=== PATIENT | male | born 1950 | race African-American/Black ===

== ENCOUNTER 2016-07-09 04:35 | Emergency (ER) | payer OTHER ==
[2016-07-09 04:59] VITALS: TEMP 98.7; BMI 27.7
--- NOTE | 2016-07-09 04:59 | PDOC ---
History of Present Illness - General History Source: Patient Exam Limitations: No Limitations - History of Present Illness Initial Comments: 07/09/16 05:17 The patient is a 65 year old male with a significant past medical history of diabetes, HTN, Cirrhosis, lymphocytic leukemia and HIV who presents to the ED with complaints of flu like symptoms for several days. The patient reports a non productive cough and shortness of breath. He reports a fever of 102 F yesterday and 100 F tonight. The patient reports his symptoms woke him from his sleep tonight. The patient also reports frequency. Denies chest pain or palpitations. Denies abdominal pain, nausea, vomiting, or diarrhea. Denies dysuria. Denies any other symptoms. Social hx: The patient is a former smoker (quit over 25 years ago). <Agata Ng - Last Filed: 07/09/16 05:17> <Maria Dolores Sandoval - Last Filed: 07/09/16 06:49> <Rodolfo Tomlinson - Last Filed: 07/09/16 10:27> <Juli Liu - Last Filed: 07/09/16 10:42> - General Stated Complaint: COLD SYMPTOMS Time Seen by Provider: 07/09/16 04:44 Past History <Agata Ng - Last Filed: 07/09/16 05:17> - Past Medical History Anemia: Yes Asthma: No Cancer: Yes (lymphacystic leukemia) Cardiac Disorders: Yes CVA: No COPD: No CHF: No Dementia: No Diabetes: Yes Disorders: No HTN: Yes Hypercholesterolemia: No HIV: Yes Kidney Stones: Yes Liver Disease: Yes (cirrhosis) Suicide Attempt (Hx): No Seizures: No Thyroid Disease: No - Immunization History Td Vaccination: Yes Immunization Up to Date: Yes - Psycho/Social/Smoking Cessation Hx Anxiety: No Suicidal Ideation: No Smoking Status: Yes Smoking History: Former smoker Years of Tobacco Use: 25 Have you smoked in the past 12 months: No Number of Cigarettes Smoked Daily: 0 If you are a former smoker, when did you quit?: > 25 yrs ago Cigars Per Day: 0 Information on smoking cessation initiated: No 'Breaking Loose' booklet given: 12/26/12 Hx Alcohol Use: No Drug/Substance Use Hx: Yes (27 yrs ago) Substance Use Type: None Hx Substance Use Treatment: No <Maria Dolores Sandoval - Last Filed: 07/09/16 06:49> <Rodolfo Tomlinson - Last Filed: 07/09/16 10:27> <Juli Liu - Last Filed: 07/09/16 10:42> - Past Medical History Allergies/Adverse Reactions: Allergies Allergy/AdvReac Type Severity Reaction Status Date / Time No Known Allergies Allergy Verified 09/01/15 05:12 Home Medications: Ambulatory Orders Ritonavir [Norvir] 100 mg PO BID #0 tablet 01/07/13 Allopurinol [Zyloprim -] 100 mg PO BID 09/01/15 Carvedilol [Coreg -] 6.25 mg PO BID 09/01/15 Furosemide [Lasix -] 80 mg PO DAILY 09/01/15 Glipizide 5 mg PO BID 09/01/15 Lidocaine 5% Patch [Lidoderm Patch -] 1 patch TP DAILY 09/01/15 Multivitamins [Tab-A-Vit -] 1 tab PO DAILY 09/01/15 Nifedipine [Nifedical Xl] 60 mg PO DAILY 09/01/15 Raltegravir [Isentress -] 400 mg PO BID 09/01/15 Ranitidine HCl [Zantac] 150 mg PO DAILY 09/01/15 Rilpivirine HCl [Edurant] 25 mg PO DAILY 09/01/15 Tamsulosin HCl 0.4 mg PO DAILY 09/01/15 Albuterol Sulfate Inhaler - [Ventolin HFA Inhaler -] 1 - 2 inh PO Q4H #1 inhaler 07/09/16 Darunavir Ethanolate [Prezista -] 600 mg PO BID 07/09/16 Levofloxacin [Levaquin] 750 mg PO DAILY #10 tablet 07/09/16 Losartan Potassium [Cozaar -] 25 mg PO DAILY 07/09/16 Methylprednisolone [Medrol Dose Tyrone] 4 mg PO ASDIR #21 tablet 07/09/16 Review of Systems - Review of Systems Able to Perform ROS?: Yes Comments:: 07/09/16 05:17 CONSTITUTIONAL: + fever Absent: diaphoresis, generalized weakness, malaise, loss of appetite HEENT: Absent: rhinorrhea, nasal congestion, throat pain, throat swelling, difficulty swallowing, mouth swelling, ear pain, eye pain, visual Changes CARDIOVASCULAR: Absent: chest pain, syncope, palpitations, irregular heart rate, lightheadedness , peripheral edema RESPIRATORY: + cough, shortness of breath Absent: dyspnea with exertion, orthopnea, wheezing, stridor, hemoptysis GASTROINTESTINAL: Absent: abdominal pain, abdominal distension, nausea, vomiting, diarrhea, constipation, melena, hematochezia GENITOURINARY: + frequency Absent: dysuria, urgency, hesitancy, hematuria, flank pain, genital pain MUSCULOSKELETAL: Absent: myalgia, arthralgia, joint swelling SKIN: Absent: rash, itching, pallor HEMATOLOGIC/IMMUNOLOGIC: Absent: easy bleeding, easy bruising, lymphadenopathy, frequent infections ENDOCRINE: Absent: unexplained weight gain, unexplained weight loss, heat intolerance, cold intolerance NEUROLOGIC: Absent: headache, focal weakness or paresthesias, dizziness, unsteady gait, seizure, mental status changes, bladder or bowel incontinence PSYCHIATRIC: Absent: anxiety, depression, suicidal or homicidal ideation, hallucinations. All Other Systems: Reviewed and Negative <Agata Ng - Last Filed: 07/09/16 05:17> *Physical Exam - Vital Signs Last Vital Signs Temp Pulse Resp BP Pulse Ox 98.7 F 62 20 149/69 96 07/09/16 04:57 07/09/16 04:57 07/09/16 04:57 07/09/16 04:57 07/09/16 04:57 - Physical Exam Comments: 07/09/16 05:17 GENERAL: Well developed, well nourished. Awake and alert. No acute distress. HEENT: + Uvulitis.Normocephalic, atraumatic. PERRLA, EOMI. No conjunctival pallor. Sclera are non-icteric. Moist mucous membranes. NECK: Supple. Full ROM. No JVD. Carotid pulses 2+ and symmetric, without bruits. No thyromegaly. NCo lymphadenopathy. CARDIOVASCULAR: Regular rate and rhythm. No murmurs, rubs, or gallops. Distal pulses are 2+ and symmetric. PULMONARY: + Wheezing bilaterally. Fluid at the base if the longs. Coarse breath sounds on the right. ABDOMINAL: + abdomen full of ascites. Soft. Non-tender No rebound or guarding. No organomegaly. Normoactive bowel sounds. MUSCULOSKELETAL Normal range of motion at all joints. No bony deformities or tenderness. No CVA tenderness. EXTREMITIES: + pitting edema up to the knee bilaterally. No cyanosis. No clubbing. No calf tenderness. SKIN: Warm and dry. Normal capillary refill. No rashes. No jaundice. NEUROLOGICAL: Alert, awake, appropriate. Cranial nerves 2-12 intact. No deficits to light touch and temperature in face, upper extremities and lower extremities. No motor deficits in the in face, upper extremities and lower extremities. Normoreflexic in the upper and lower extremities. Normal speech. Toes are down- going bilaterally. Gait is normal without ataxia. PSYCHIATRIC: Cooperative. Good eye contact. Appropriate mood and affect. <Agata Ng - Last Filed: 07/09/16 05:17> - Vital Signs Last Vital Signs Temp Pulse Resp BP Pulse Ox 98.7 F 62 20 149/69 96 07/09/16 04:57 07/09/16 04:57 07/09/16 04:57 07/09/16 04:57 07/09/16 04:57 <Maria Dolores Sandoval - Last Filed: 07/09/16 06:49> - Vital Signs Last Vital Signs Temp Pulse Resp BP Pulse Ox 98.7 F 66 20 132/69 100 07/09/16 04:57 07/09/16 07:52 07/09/16 07:52 07/09/16 07:52 07/09/16 07:52 <Rodolfo Tomlinson - Last Filed: 07/09/16 10:27> - Vital Signs Last Vital Signs Temp Pulse Resp BP Pulse Ox 98.7 F 66 20 132/69 100 07/09/16 04:57 07/09/16 07:52 07/09/16 07:52 07/09/16 07:52 07/09/16 07:52 <Juli Liu - Last Filed: 07/09/16 10:42> ED Treatment Course - LABORATORY CBC & Chemistry Diagram: 07/09/16 05:19 07/09/16 05:44 <Maria Dolores Sandoval - Last Filed: 07/09/16 06:49> - LABORATORY CBC & Chemistry Diagram: 07/09/16 05:19 07/09/16 05:44 - ADDITIONAL ORDERS Additional order review: Laboratory Results 07/09/16 07/09/16 05:44 05:44 Sodium 143 Potassium 4.1 Chloride 106 Carbon Dioxide 25 Anion Gap 12 BUN 35 H D Creatinine 2.7 H D Creat Clearance w eGFR 23.99 Random Glucose 148 H Calcium 8.6 Total Bilirubin 0.4 AST 12 L D ALT 17 D Alkaline Phosphatase 62 Creatine Kinase 67 Troponin I < 0.02 D Total Protein 6.1 L Albumin 3.5 07/09/16 05:19 RBC 3.99 L MCV 85.3 MCHC 32.8 RDW 15.4 D MPV 8.1 Neutrophils % 9.0 L D Lymphocytes % 83.0 H D Monocytes % 3.0 L - RADIOLOGY Radiology Studies Ordered: Category Date Time Status CHEST CT WITHOUT CONTRAST [CT] Stat CT Scan 07/09/16 07:59 Completed - Medications Given in the ED: ED Medications Discontinued Medications Generic Name Dose Route Start Last Admin Trade Name Freq PRN Reason Stop Dose Admin Albuterol/Ipratropium 1 amp 07/09/16 06:33 07/09/16 06:52 Duoneb - NEB 07/09/16 06:34 1 amp ONCE ONE Administration Furosemide 40 mg 07/09/16 05:50 07/09/16 05:54 Lasix Injection - IVPUSH 07/09/16 05:51 40 mg ONCE ONE Administration Sodium Chloride 250 ml 07/09/16 06:34 07/09/16 06:52 Normal Saline - IV 07/09/16 06:35 250 ml ONCE ONE Administration <Rodolfo Tomlinson - Last Filed: 07/09/16 10:27> - LABORATORY CBC & Chemistry Diagram: 07/09/16 05:19 07/09/16 05:44 - ADDITIONAL ORDERS Additional order review: Laboratory Results 07/09/16 07/09/16 05:44 05:44 Sodium 143 Potassium 4.1 Chloride 106 Carbon Dioxide 25 Anion Gap 12 BUN 35 H D Creatinine 2.7 H D Creat Clearance w eGFR 23.99 Random Glucose 148 H Calcium 8.6 Total Bilirubin 0.4 AST 12 L D ALT 17 D Alkaline Phosphatase 62 Creatine Kinase 67 Troponin I < 0.02 D Total Protein 6.1 L Albumin 3.5 07/09/16 05:19 RBC 3.99 L MCV 85.3 MCHC 32.8 RDW 15.4 D MPV 8.1 Neutrophils % 9.0 L D Lymphocytes % 83.0 H D Monocytes % 3.0 L - Medications Given in the ED: ED Medications Discontinued Medications Generic Name Dose Route Start Last Admin Trade Name Freq PRN Reason Stop Dose Admin Albuterol/Ipratropium 1 amp 07/09/16 06:33 07/09/16 06:52 Duoneb - NEB 07/09/16 06:34 1 amp ONCE ONE Administration Furosemide 40 mg 07/09/16 05:50 07/09/16 05:54 Lasix Injection - IVPUSH 07/09/16 05:51 40 mg ONCE ONE Administration Sodium Chloride 250 ml 07/09/16 06:34 07/09/16 06:52 Normal Saline - IV 07/09/16 06:35 250 ml ONCE ONE Administration <Juli Liu - Last Filed: 07/09/16 10:42> Medical Decision Making - Medical Decision Making 07/09/16 06:49 Pt has HIV, Hep C, CHF, renal insufficiency, ascites in abdomen, pitting edema of ankles and feet. Comes with cough and cold. Lungs have crackles, wheeze and coarse breath sounds on exam. Pt's labs are normal, except for his BUN/Cr, which is getting worse. Pt is awaiting CXR. He will be signed out to the day ER doc. <Maria Dolores Sandoval - Last Filed: 07/09/16 06:49> - Medical Decision Making 07/09/16 10:40 Patient was signed over from Dr. Sandoval. 65 yo male with past medical hx of diabetes, hypertension, cirrhosis, leukemia, and HIV presents with cough producing green phlegm, cold symptoms, and fever. Patients BUN and creatinine levels high, CXR abnormal, will send to CT without contrast for further evaluation. EKG reviewed by Dr. Tomlinson. Normal rate, Flat flipped T's inferolateral <Juli Liu - Last Filed: 07/09/16 10:42> *DC/Admit/Observation/Transfer - Attestations Scribe Attestion: 07/09/16 05:18 Documentation prepared by Agata Ng, acting as medical laboratory specialist for Maria Dolores Sandoval MD <Agata Ng - Last Filed: 07/09/16 05:17> <Maria Dolores Sandoval - Last Filed: 07/09/16 06:49> <Rodolfo Tomlinson - Last Filed: 07/09/16 10:27> <Juli Liu - Last Filed: 07/09/16 10:42> Diagnosis at time of Disposition: Bronchitis - Discharge Dispostion Disposition: HOME Condition at time of disposition: Improved - Prescriptions Prescriptions: Levofloxacin [Levaquin] 750 mg PO DAILY #10 tablet Methylprednisolone [Medrol Dose Tyrone] 4 mg PO ASDIR #21 tablet Albuterol Sulfate Inhaler - [Ventolin HFA Inhaler -] 1 - 2 inh PO Q4H #1 inhaler - Patient Instructions Printed Discharge Instructions: DI for Acute Bronchitis Additional Instructions: Ciro... Levaquin is for ten days (Antibiotic for Bronchitis) Medrol is for 5 days. (AntiInflamatory for your Lungs) Albuterol inhaler is for trouble breathing.... one or two puffs is ok (4 times a day) You need to have your CT Scan repeated in six months so that you can know that what they saw is stable. Follow up with your doctor after [facility] Day. Return to us if worse or new symptoms occur. Aldo- Dr. Rodolfo Tomlinson
[2016-07-09] MEDS ORDERED: FUROSEMIDE 40 MG/4 ML INJECTABLE VIAL ONE ×2 (05:50→06:48)
[2016-07-09] MEDS ORDERED: FUROSEMIDE 40 MG/4 ML INJECTABLE VIAL IVPUSH ONE (05:50)
[2016-07-09 05:52] LABS: MCHC 32.8 g/dl (32.0-35.9); MEAN CELL VOLUME 85.3 fl (80-96); MEAN PLT VOLUME 8.1 fl (7.5-11.1); PLATELET COUNT 71 K/MM3 (134-434); RDW 15.4 % (11.9-15.9); WHITE BLOOD COUNT 7.3 K/mm3 (4.0-10.0)
[2016-07-09 06:18] LABS: ALBUMIN 3.5 g/dl (3.4-5.0); BILIRUBIN,TOTAL 0.4 mg/dL (0.2-1.0); CALCIUM 8.6 mg/dL (8.5-10.1); COCKROFT - GAULT 33.77; CREATININE 2.7 mg/dL (0.7-1.3); TOT PROT 6.1 g/dl (6.4-8.2)
[2016-07-09 06:21] LABS: TROPONIN I < 0.02 ng/ml (0.00-0.05)
[2016-07-09] MEDS ORDERED: ALBUTEROL SO4 2.5/IPRATROPIUM 0.5 INH SOL 3 ML VIAL.NEB. NEB ONE (06:33)
[2016-07-09] MEDS ORDERED: SODIUM CHLORIDE 0.9% 500 ML INFUS.BAG IV ONE (06:34)
[2016-07-09 07:11] LABS: PLATELET ESTIMATE MOD DECREASED (NORMAL)
[2016-07-09 07:12] LABS: ANISOCYTOSIS FEW; POIKILOCYTOSIS FEW
[2016-07-09] MEDS ORDERED: LEVOFLOXACIN 250 MG TABLET (FP) PO ONE (10:22)
[2016-07-09] MEDS ORDERED: predniSONE 20 MG TABLET (UD) PO ONE (10:22)
[2016-07-09] MEDS ORDERED: LEVOFLOXACIN 250 MG TABLET (FP) ONE (10:46)
[2016-07-09] MEDS ORDERED: LEVOFLOXACIN 500 MG TABLET (FP) ONE (10:46)
[2016-07-09] MEDS ORDERED: predniSONE 20 MG TABLET (UD) ONE (10:46)
[2016-07-09 11:00] VITALS: BP 133/80; PULSE 78
--- NOTE | 2016-07-10 09:28 | EKG ---
Test Reason : Blood Pressure : / mmHG Vent. Rate : 062 BPM Atrial Rate : 062 BPM P-R Int : 160 ms QRS Dur : 104 ms QT Int : 446 ms P-R-T Axes : 061 024 008 degrees QTc Int : 452 ms NORMAL SINUS RHYTHM CANNOT RULE OUT ANTERIOR INFARCT , AGE UNDETERMINED NONSPECIFIC T WAVE ABNORMALITY INFEROLATERAL LEADS ABNORMAL ECG WHEN COMPARED WITH ECG OF 29-MAY-2013 21:07, PREMATURE VENTRICULAR COMPLEXES ARE NO LONGER PRESENT T WAVE INVERSION LESS EVIDENT IN LEADS Confirmed by MODESTO BROWN MD ([id number]) on 07/10/2016 9:28:08 AM Referred By: Confirmed By:MODESTO BROWN MD
== END 2016-07-09 11:00 | disposition home or self-care (01) ==
LOC: JER 04:35
DX: J40 Bronchitis, not specified as acute or chronic (principal); R60.0 Localized edema; R18.8 Other ascites; I50.9 Heart failure, unspecified; I10 Essential (primary) hypertension; E11.9 Type 2 diabetes mellitus without complications; Z79.84 Long term (current) use of oral hypoglycemic drugs; C91.90 Lymphoid leukemia, unspecified not having achieved remission; K74.60 Unspecified cirrhosis of liver; B18.2 Chronic viral hepatitis C; Z21 Asymptomatic human immunodeficiency virus [HIV] infection status
CPT/HCPCS: 36415; 71020-TC; 71250-TC; 80053; 82550; 84484; 85025; 93005; 93010; 99282-25

== ENCOUNTER 2017-09-11 04:58 | Inpatient (IN) | payer OTHER ==
--- NOTE | 2017-09-11 05:18 | PDOC ---
ED Treatment Course - LABORATORY CBC & Chemistry Diagram: 09/11/17 06:38 09/11/17 11:05 Medical Decision Making - Medical Decision Making 09/11/17 05:18 agree with care from RAHEEM Jules *DC/Admit/Observation/Transfer Diagnosis at time of Disposition: Acute urinary retention, Status post insertion of Lara catheter, CLL/SLL, Cirrhosis of liver, Abdominal pain, Renal insufficiency, Diverticulitis - Discharge Dispostion Condition at time of disposition: Good - Referrals - Patient Instructions - Post Discharge Activity
[2017-09-11] MEDS ORDERED: LIDOCAINE HCL 2% JELLY 10 ML CARTRIDGE ONE (05:20)
--- NOTE | 2017-09-11 05:35 | PDOC ---
History of Present Illness - General Chief Complaint: Urinary Problem Stated Complaint: URINARY PROBLEM Time Seen by Provider: 09/11/17 05:04 History Source: Patient - History of Present Illness Initial Comments: 09/11/17 05:51 66 year old male c/o urinary retention since 10 am 09/10/2017Patient reports that he has a history of kidney stones, BPH, liver cirrhosis, HIV, hypertension.Denies fevers/chills, nausea, vomiting, abdominal pain. Patient reports suprapubic pain and tenderness with increased abdominal distention. 09/11/17 05:54 Past History - Past Medical History Allergies/Adverse Reactions: Allergies Allergy/AdvReac Type Severity Reaction Status Date / Time No Known Allergies Allergy Verified 09/01/15 05:12 Home Medications: Ambulatory Orders Ritonavir [Norvir] 100 mg PO BID #0 tablet 01/07/13 Allopurinol [Zyloprim -] 100 mg PO BID 09/01/15 Carvedilol [Coreg -] 6.25 mg PO BID 09/01/15 Furosemide [Lasix -] 80 mg PO DAILY 09/01/15 Glipizide 5 mg PO BID 09/01/15 Lidocaine 5% Patch [Lidoderm Patch -] 1 patch TP DAILY 09/01/15 Multivitamins [Tab-A-Vit -] 1 tab PO DAILY 09/01/15 Nifedipine [Nifedical Xl] 60 mg PO DAILY 09/01/15 Raltegravir [Isentress -] 400 mg PO BID 09/01/15 Ranitidine HCl [Zantac] 150 mg PO DAILY 09/01/15 Rilpivirine HCl [Edurant] 25 mg PO DAILY 09/01/15 Tamsulosin HCl 0.4 mg PO DAILY 09/01/15 Albuterol Sulfate Inhaler - [Ventolin HFA Inhaler -] 1 - 2 inh PO Q4H #1 inhaler 07/09/16 Darunavir Ethanolate [Prezista -] 600 mg PO BID 07/09/16 Levofloxacin [Levaquin] 750 mg PO DAILY #10 tablet 07/09/16 Losartan Potassium [Cozaar -] 25 mg PO DAILY 07/09/16 Methylprednisolone [Medrol Dose Tyrone] 4 mg PO ASDIR #21 tablet 07/09/16 Anemia: Yes Asthma: No Cancer: Yes (lymphacystic leukemia) Cardiac Disorders: Yes CVA: No COPD: No CHF: No Dementia: No Diabetes: Yes Disorders: No HTN: Yes Hypercholesterolemia: No Kidney Stones: Yes Liver Disease: Yes (cirrhosis) Seizures: No Thyroid Disease: No - Immunization History Td Vaccination: Yes Immunization Up to Date: Yes - Suicide/Smoking/Psychosocial Hx Smoking Status: Yes Smoking History: Former smoker Years of Tobacco Use: 25 Have you smoked in the past 12 months: No Number of Cigarettes Smoked Daily: 0 If you are a former smoker, when did you quit?: > 25 yrs ago Cigars Per Day: 0 'Breaking Loose' booklet given: 12/26/12 Hx Alcohol Use: No Drug/Substance Use Hx: Yes (27 yrs ago) Substance Use Type: None Hx Substance Use Treatment: No Review of Systems - Review of Systems Able to Perform ROS?: Yes Is the patient limited Slovak proficient: No Constitutional: No: Symptoms Reported, See HPI, Chills, Diaphoresis, Fever, Loss of Appetite, Malaise, Night Sweats, Weakness, Weight Stable, Unintentional Wgt. Loss, Unexplained wgt Loss, Other ABD/GI: No: Symptoms Reported, See HPI, Abdominal Distended, Abd. Pain w/ defecation, Blood Streaked Bowels, Constipated, Diarrhea, Difficulty Swallowing , Nausea, Poor Appetite, Poor Fluid Intake, Rectal Bleeding, Vomiting, Indigestion, Abdominal cramping, Tarry Stools, Other : Yes: Flank Pain, Other (urinary retention) *Physical Exam - Vital Signs 09/11/17 05:56 Last Vital Signs Temp Pulse Resp BP Pulse Ox 98.3 F 69 18 133/57 96 09/11/17 05:16 09/11/17 05:16 09/11/17 05:16 09/11/17 05:16 09/11/17 05:16 - Physical Exam General Appearance: Yes: Appropriately Dressed Respiratory/Chest: positive: Lungs Clear, Normal Breath Sounds Gastrointestinal/Abdominal: positive: Distended, Hepatomegaly Male Genitalia: positive: CVAT (left ), other (distented ) Musculoskeletal: positive: Normal Inspection, CVA Tenderness (L) Extremity: positive: Normal Capillary Refill Progress Note - Progress Note Progress Note: A: urinary retention P UA Ucx CTAP CBC CMP PT/ PTT ortiz catheter *DC/Admit/Observation/Transfer Diagnosis at time of Disposition: Acute urinary retention, Status post insertion of Ortiz catheter - Discharge Dispostion Condition at time of disposition: Fair - Referrals Referrals: Westley Razo MD [Staff Physician] - - Patient Instructions - Post Discharge Activity
[2017-09-11 06:11] LABS: URINE APPEARANCE CLOUDY; URINE BILIRUBIN NEGATIVE (<2.0 mg/dL); URINE COLOR YELLOW; URINE GLUCOSE (UA) 1+ (NEGATIVE); URINE KETONE NEGATIVE (NEGATIVE); URINE LEUK ESTERASE NEGATIVE (NEGATIVE); URINE NITRITE NEGATIVE (NEGATIVE); URINE UROBILINOGEN NEGATIVE mg/dL (0.2-1.0)
[2017-09-11 06:23] LABS: URINE PROTEIN 3+ (NEGATIVE)
[2017-09-11 06:42] LABS: URINE BACTERIA RARE /hpf (NONE SEEN); URINE MUCUS RARE
[2017-09-11 07:01] LABS: HEMATOCRIT 28.5 % (35.4-49); HEMOGLOBIN 9.2 GM/dL (11.7-16.9); LYMPH % 98.2 % (8-40); MCH 29.4 pg (25.7-33.7); MCHC 32.1 g/dl (32.0-35.9); MEAN CELL VOLUME 91.4 fl (80-96); MEAN PLT VOLUME 8.3 fl (7.5-11.1); MONO % 0.7 % (3.8-10.2); NEUT % 1.1 % (42.8-82.8); PLATELET COUNT 101 K/MM3 (134-434); RBC 3.12 M/mm3 (4.00-5.60)
[2017-09-11 07:13] LABS: INR 1.14 (0.83-1.09); PROTHROMBIN TIME (PATIENT) 12.9 SEC (9.7-13.0)
[2017-09-11 07:17] LABS: ACTIVATED PTT 25.8 SECONDS (25.2-36.5)
[2017-09-11 07:20] LABS: ALBUMIN 3.6 g/dl (3.4-5.0); ANION GAP 16 (8-16); CALCIUM 8.2 mg/dL (8.5-10.1); CHLORIDE 103 mmol/L (98-107); CO2 15 mmol/L (21-32); GLUCOSE,RANDOM 155 mg/dL (74-106); POTASSIUM 5.4 mmol/L (3.5-5.1); SODIUM 134 mmol/L (136-145)
[2017-09-11 07:24] LABS: BILIRUBIN,TOTAL 0.4 mg/dL (0.2-1.0); SGOT/AST 7 U/L (15-37); SGPT/ALT 19 U/L (12-78); TOT PROT 6.2 g/dl (6.4-8.2)
[2017-09-11 07:26] LABS: ALK PHOS 68 U/L (45-117)
[2017-09-11 07:27] LABS: BLOOD UREA NITROGEN 130 mg/dL (7-18); LIPASE 276 U/L (73-393)
[2017-09-11] MEDS ORDERED: SODIUM CHLORIDE 1,000 ML IV ONE (07:29)
[2017-09-11] MEDS ORDERED: SODIUM POLYSTYRENE SULFONATE 15 GM/60 ML BOTTLE PO ONE ×2 (07:30→12:59)
[2017-09-11 07:31] LABS: WHITE BLOOD COUNT 65.7 K/mm3 (4.0-10.0)
[2017-09-11] MEDS ORDERED: SODIUM POLYSTYRENE SULFONATE 15 GM/60 ML BOTTLE ONE (07:33)
[2017-09-11] MEDS ORDERED: PIPERACILLIN/TAZOB 4.5 GM 4.5 GM in DEXTROSE 5%-WATER 100 ML IVPB ONE (07:44)
--- NOTE | 2017-09-11 08:14 | PDOC ---
*Physical Exam - Vital Signs Last Vital Signs Temp Pulse Resp BP Pulse Ox 98.3 F 69 18 133/57 96 09/11/17 05:16 09/11/17 05:16 09/11/17 05:16 09/11/17 05:16 09/11/17 05:16 <Gema Diego - Last Filed: 09/11/17 10:30> - Vital Signs Last Vital Signs Temp Pulse Resp BP Pulse Ox 98.4 F 64 17 125/56 95 09/11/17 10:04 09/11/17 10:04 09/11/17 10:04 09/11/17 10:04 09/11/17 10:04 <Shawn Mcdonald - Last Filed: 09/11/17 10:45> Heart Score/ECG Review #1 ECG reviewed & interpreted by me at: 07:38 General ECG Interpretation: Sinus Rhythm, Normal Rate (60), Normal Intervals ( qtc 448, qrs 108), No acute ischemic changes (no peaked T waves) <Shawn Mcdonald - Last Filed: 09/11/17 10:45> ED Treatment Course - LABORATORY CBC & Chemistry Diagram: 09/11/17 06:38 09/11/17 06:38 - ADDITIONAL ORDERS Additional order review: Laboratory Results 09/11/17 09/11/17 09/11/17 06:38 06:38 05:45 PT with INR 12.90 INR 1.14 PTT (Actin FS) 25.8 Sodium 134 L Potassium 5.4 H D Chloride 103 Carbon Dioxide 15 L D Anion Gap 16 BUN 130 H* Creatinine 7.0 H Creat Clearance w eGFR 7.96 Random Glucose 155 H Calcium 8.2 L Total Bilirubin 0.4 AST 7 L D ALT 19 Alkaline Phosphatase 68 Total Protein 6.2 L Albumin 3.6 Lipase 276 Urine Color Yellow Urine Appearance Cloudy Urine pH 5.0 Ur Specific [place] 1.011 Urine Protein 3+ H Urine Glucose (UA) 1+ H Urine Ketones Negative Urine Blood Negative Urine Nitrite Negative Urine Bilirubin Negative Urine Urobilinogen Negative Ur Leukocyte Esterase Negative Urine WBC (Auto) 4 Urine RBC (Auto) 1 Urine Bacteria Rare Urine Mucus Rare 09/11/17 06:38 RBC 3.12 L MCV 91.4 MCHC 32.1 RDW 16.0 H MPV 8.3 Neutrophils % 1.1 L Lymphocytes % 98.2 H Monocytes % 0.7 L Eosinophils % 0.0 D Basophils % 0.0 - Medications Given in the ED: ED Medications Discontinued Medications Generic Name Dose Route Start Last Admin Trade Name Nicolasa PRN Reason Stop Dose Admin Sodium Polystyrene Sulfonate 15 gm 09/11/17 07:30 09/11/17 07:48 Kayexalate - PO 09/11/17 07:31 15 gm ONCE ONE Administration <Gema Diego - Last Filed: 09/11/17 10:30> - LABORATORY CBC & Chemistry Diagram: 09/11/17 06:38 09/11/17 06:38 - ADDITIONAL ORDERS Additional order review: Laboratory Results 09/11/17 09/11/17 09/11/17 08:05 08:05 08:05 PT with INR INR PTT (Actin FS) VBG pH 7.32 POC VBG pCO2 28.0 L POC VBG pO2 59.4 H Mixed VBG HCO3 13.8 L* Sodium Cancelled Potassium Cancelled Chloride Cancelled Carbon Dioxide Cancelled Anion Gap Cancelled BUN Cancelled Creatinine Cancelled Creat Clearance w eGFR Cancelled Random Glucose Cancelled Lactic Acid 1.3 Calcium Cancelled Total Bilirubin Cancelled AST Cancelled ALT Cancelled Alkaline Phosphatase Cancelled Troponin I < 0.02 Total Protein Cancelled Albumin Cancelled Lipase TSH Cancelled Urine Color Urine Appearance Urine pH Ur Specific [place] Urine Protein Urine Glucose (UA) Urine Ketones Urine Blood Urine Nitrite Urine Bilirubin Urine Urobilinogen Ur Leukocyte Esterase Urine WBC (Auto) Urine RBC (Auto) Urine Bacteria Urine Mucus 09/11/17 09/11/17 09/11/17 08:05 06:38 06:38 PT with INR 12.60 12.90 INR 1.12 1.14 PTT (Actin FS) 23.3 25.8 VBG pH POC VBG pCO2 POC VBG pO2 Mixed VBG HCO3 Sodium 134 L Potassium 5.4 H D Chloride 103 Carbon Dioxide 15 L D Anion Gap 16 BUN 130 H* Creatinine 7.0 H Creat Clearance w eGFR 7.96 Random Glucose 155 H Lactic Acid Calcium 8.2 L Total Bilirubin 0.4 AST 7 L D ALT 19 Alkaline Phosphatase 68 Troponin I Total Protein 6.2 L Albumin 3.6 Lipase 276 TSH Urine Color Urine Appearance Urine pH Ur Specific [place] Urine Protein Urine Glucose (UA) Urine Ketones Urine Blood Urine Nitrite Urine Bilirubin Urine Urobilinogen Ur Leukocyte Esterase Urine WBC (Auto) Urine RBC (Auto) Urine Bacteria Urine Mucus 09/11/17 05:45 PT with INR INR PTT (Actin FS) VBG pH POC VBG pCO2 POC VBG pO2 Mixed VBG HCO3 Sodium Potassium Chloride Carbon Dioxide Anion Gap BUN Creatinine Creat Clearance w eGFR Random Glucose Lactic Acid Calcium Total Bilirubin AST ALT Alkaline Phosphatase Troponin I Total Protein Albumin Lipase TSH Urine Color Yellow Urine Appearance Cloudy Urine pH 5.0 Ur Specific [place] 1.011 Urine Protein 3+ H Urine Glucose (UA) 1+ H Urine Ketones Negative Urine Blood Negative Urine Nitrite Negative Urine Bilirubin Negative Urine Urobilinogen Negative Ur Leukocyte Esterase Negative Urine WBC (Auto) 4 Urine RBC (Auto) 1 Urine Bacteria Rare Urine Mucus Rare 09/11/17 06:38 RBC 3.12 L MCV 91.4 MCHC 32.1 RDW 16.0 H MPV 8.3 Neutrophils % 1.1 L Lymphocytes % 98.2 H Monocytes % 0.7 L Eosinophils % 0.0 D Basophils % 0.0 - Medications Given in the ED: ED Medications Discontinued Medications Generic Name Dose Route Start Last Admin Trade Name Freq PRN Reason Stop Dose Admin Piperacillin Sod/Tazobactam 100 mls @ 200 mls/hr 09/11/17 07:44 09/11/17 08: 25 Sod 4.5 gm/ Dextrose IVPB 09/11/17 08:13 200 mls/hr ONCE ONE Administration Protocol Sodium Polystyrene Sulfonate 15 gm 09/11/17 07:30 09/11/17 07:48 Kayexalate - PO 09/11/17 07:31 15 gm ONCE ONE Administration <Shawn Mcdonald - Last Filed: 09/11/17 10:45> Medical Decision Making - Medical Decision Making 09/11/17 08:00 Patient received in sign out from RAHEEM Jules. Patient here with complaints of urinary retention and suprapubic pain along with abdominal distention. Patient with history of cirrhosis, HIV, leukemia last treatment being one year ago. Patient is under the care of physicians at [facility]. Patient denies fever, diarrhea, chest pain, or difficulty breathing. 09/11/17 08:13 Laboratory Tests 09/11/17 09/11/17 09/11/17 05:45 06:38 06:38 WBC 65.7 H* Hgb 9.2 L Hct 28.5 L D RDW 16.0 H Plt Count 101 L D Neutrophils % 1.1 L Lymphocytes % 98.2 H Monocytes % 0.7 L INR 1.14 Sodium Potassium Carbon Dioxide BUN Creatinine Random Glucose Calcium Total Bilirubin AST Total Protein Urine Protein 3+ H Urine Glucose (UA) 1+ H Urine Nitrite Negative Ur Leukocyte Esterase Negative Urine WBC (Auto) 4 09/11/17 06:38 WBC Hgb Hct RDW Plt Count Neutrophils % Lymphocytes % Monocytes % INR Sodium 134 L Potassium 5.4 H D Carbon Dioxide 15 L D BUN 130 H* Creatinine 7.0 H Random Glucose 155 H Calcium 8.2 L Total Bilirubin 0.4 AST 7 L D Total Protein 6.2 L Urine Protein Urine Glucose (UA) Urine Nitrite Ur Leukocyte Esterase Urine WBC (Auto) Abdominal CT shows nonobstructing stone in the left Kidney. Unremarkable pancreas and gallbladder. Cirrhotic liver contour. Acute diverticulitis in the proximal sigmoid colon with no abscess, bowel obstruction colitis fluid or free air noted. Normal appendix. Patient ordered for blood cultures, lactic acid along with broad spectrum antibiotics, Zosyn 4.5 g. Patient was ordered for IV fluids along with Kayexalate. Will admit patient to the hospitalist since his physician is nonparticipating ([facility]). Patient is otherwise comfortable and aware and agrees with plan. 09/11/17 10:27 Case discussed with patient's oncologist Dr. Hill at [facility] and states patient's baseline WBC has been 63,065 [place] and normally does not require treatment until he is around 100,000. Case also discussed with refrigerating oiler Dr. Wells and recommends adding a plasma potassium. patient will be admitted to telemetry inpatient case discussed with hospitalist. <Gema Diego - Last Filed: 09/11/17 10:30> *DC/Admit/Observation/Transfer - Discharge Dispostion Decision to Admit order: Yes <Gema Diego - Last Filed: 09/11/17 10:30> <Shawn Mcdonald - Last Filed: 09/11/17 10:45> Diagnosis at time of Disposition: Acute urinary retention, Status post insertion of Lara catheter, CLL/SLL, Cirrhosis of liver, Abdominal pain, Renal insufficiency, Diverticulitis - Discharge Dispostion Condition at time of disposition: Good - Referrals Referrals: El-Masry,Westley S, MD [Staff Physician] - - Patient Instructions - Post Discharge Activity
[2017-09-11] MEDS ORDERED: PIPERACILLIN/TAZOB 4.5 GM 4.5 GM/100 ML BAG IVPB ONE (08:17)
[2017-09-11 08:27] LABS: VENOUS PH 7.32 (7.32-7.42); VENOUS PO2 59.4 mmHg (28-48)
[2017-09-11 08:33] LABS: INR 1.12 (0.83-1.09); PROTHROMBIN TIME (PATIENT) 12.6 SEC (9.7-13.0)
[2017-09-11 08:36] LABS: ACTIVATED PTT 23.3 SECONDS (25.2-36.5)
[2017-09-11] MEDS ORDERED: CARVEDILOL 6.25 MG TABLET (FP) PO SCH (11:15)
[2017-09-11] MEDS ORDERED: NIFEdipine E.R 60 MG TABLET (UD) PO SCH (11:15)
[2017-09-11 11:21] LABS: PLATELET ESTIMATE SLT DECREASE
--- NOTE | 2017-09-11 11:37 | HP ---
CHIEF COMPLAINT: inability to urinate fully/decreased PO intake/decreased sleep/night sweats since , increased COREA since Sun PCP: Medical team at [facility] Dr. Glynn and Dr. Hill [phone] [facility] 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 Pt also reports increased COREA and lethargy since Sun. Pt describes incomplete voiding since associated with feeling of fullness in the lower abdomen. He has never experienced this in the past. He denies pain/ burning with urination, flank pain, blood in urine. He states he has been able to urinate, but feels flow is poor, and has feeling of incomplete voiding. Pt describes decreased appetite, decreased sleep, and night sweats since . He states he has been able to eat, but his appetite is diminished and his portion size has been smaller than normal. He describes having to force himself to eat. He denies any nausea or vomiting. He denies difficulty swallowing solids or liquids. He states he simply does not feel very hungry. He also states he has not been sleeping well since but is not clear as to why. He denies feeling anxious or waking repeatedly to urinate. Pt also gives a somewhat vague description of having night sweats since . It is unclear whether this is similar in character to what he experienced 3 years ago preceding his cancer diagnosis, though he had night sweats at that time, as well. Pt describes increased COREA and lethargy since Sun. Pt states he had Khmer food Fri evening, and feels that the increased salt (pt normally observes a low salt diet) has caused him an increase in fatiguability. He states he is normally able to walk approximately 1 city block before becoming fatigued. He was not able to estimate his current exercise capacity, as he has not attempted to get up and walk since Sun, but he feels generally more fatigued than his baseline. Pt describes chronic mild leg swelling. He denies sob/cough when lying flat and uses only 1 pillow to sleep. He cannot recall being told he has heart failure. Pt states that because he felt bloated he decided to resume taking metalazone, which his doctor had previously stopped. Pt also had doubled his losartan dose on his own. Pt admits to having made changes to his medications in the past without consulting his doctors. Pt was counselled about not adjusting his medications on his own. Pt denies fever, weight loss, headache, change in vision, nausea, vomiting, diarrhea, chest pain. Pt states he does not recall when his last BM or flatulence were, but does not feel constipated. CLL: Dx ~ 3 years ago. Pt got immunologic agent. Was not a candidate for chemo/ rad. ED staff spoke with Dr. Hill ([facility]). Pt's WBCs have been ~60 for the last 6 months. Primary team plans not to intervene unless WBC climb to 100 or pt develops symptoms. On 07/05/2017, BUN/Silica Mixer Operator were 45/2.6. Pt states HIV viral load is undetectable and CD4 count was about 1100 recently. Follows at [facility]. ER course was notable for: (1) Hb 9.2, Hct 28.5, WBC 65, Na 134, K 5.4, BUN 130, Silica Mixer Operator 7, Glc 155, UA: 3+ prot (2) CTAP: splenic subcapsular hypodensity, prox sigmoid divirticulitis, cirrhosis, hepatosplenomegally, mesenteric LAD, L kidney stone, renal cysts, R adrenal adenoma, EKG unremarkable (3) kayexelate, zosyn, NS, ortiz Recent Travel: denies PAST MEDICAL HISTORY: CLL (tx at [facility]), HIV (tx at [facility]), HTN, BPH, Cirrhosis, NIDDM, ?CKD ( baseline mohs surgeon 2.2 per [facility]) PAST SURGICAL HISTORY: L axillary LN Bx 3 years ago, prior cystoscopy Social History: Smoking: Former smoker 26 pack/year. Quit 3 years ago Alcohol: Former EtOH abuse. >1/2 quart vodka 6d/week x 20 years. Quit 3 years ago Drugs: Former IVDA. Cocaine and Heroin. Quit heroin many years ago. Never been on Methadone. Quit cocaine 3 years ago. Family History: denies Allergies No Known Allergies Allergy (Verified 09/11/17 06:54) HOME MEDICATIONS: Home Medications Medication Instructions Recorded Ritonavir [Norvir] 100 mg PO BID #0 tablet 01/07/13 Allopurinol [Zyloprim -] 100 mg PO BID 09/01/15 Carvedilol [Coreg -] 6.25 mg PO BID 09/01/15 Furosemide [Lasix -] 80 mg PO DAILY 09/01/15 Glipizide 5 mg PO BID 09/01/15 Lidocaine 5% Patch [Lidoderm Patch 1 patch TP DAILY 09/01/15 -] Multivitamins [Tab-A-Vit -] 1 tab PO DAILY 09/01/15 Nifedipine [Nifedical Xl] 60 mg PO DAILY 09/01/15 Raltegravir [Isentress -] 400 mg PO BID 09/01/15 Ranitidine HCl [Zantac] 150 mg PO DAILY 09/01/15 Rilpivirine HCl [Edurant] 25 mg PO DAILY 09/01/15 Darunavir Ethanolate [Prezista -] 600 mg PO BID 07/09/16 Losartan Potassium [Cozaar -] 25 mg PO DAILY 07/09/16 REVIEW OF SYSTEMS CONSTITUTIONAL: subj fever, generalized weakness Absent: , chills, diaphoresis,, malaise, loss of appetite, weight change HEENT: Absent: rhinorrhea, nasal congestion, throat pain, throat swelling, difficulty swallowing, mouth swelling, ear pain, eye pain, visual changes CARDIOVASCULAR: Absent: chest pain, syncope, palpitations, irregular heart rate, lightheadedness , peripheral edema RESPIRATORY: shortness of breath, dyspnea with exertion Absent: cough, , orthopnea, wheezing, stridor, hemoptysis GASTROINTESTINAL:abdominal distension, abdominal fullness Absent: abdominal pain, , nausea, vomiting, diarrhea, constipation, melena, hematochezia GENITOURINARY: incomplete urinary voiding Absent: dysuria, frequency, urgency, hesitancy, hematuria, flank pain, genital pain MUSCULOSKELETAL: Absent: myalgia, arthralgia, joint swelling, back pain, neck pain SKIN: Absent: rash, itching, pallor HEMATOLOGIC/IMMUNOLOGIC: Absent: easy bleeding, easy bruising, lymphadenopathy, frequent infections ENDOCRINE: Absent: unexplained weight gain, unexplained weight loss, heat intolerance, cold intolerance NEUROLOGIC: Absent: headache, focal weakness or paresthesias, dizziness, unsteady gait, seizure, mental status changes, bladder or bowel incontinence PSYCHIATRIC: Absent: anxiety, depression, suicidal or homicidal ideation, hallucinations. PHYSICAL EXAMINATION Vital Signs - 24 hr 09/11/17 09/11/17 05:16 10:04 Temperature 98.3 F 98.4 F Pulse Rate 69 Pulse Rate [ 64 Apical] Respiratory 18 17 Rate Blood Pressure 133/57 Blood Pressure 125/56 [Left Arm] O2 Sat by Pulse 96 95 Oximetry (%) Gen: NAD, lying in bed HEENT: NCAT, PERRL, EOMI, no pharyngitis Neck: No thyromegally, no LAD, trachea central Cardio: RRR, normal s1s2, 3-4/6 systolic murmur best heard at apex Lung: fine bibasilar crackles Abd: Distended, hyperactive bowel sounds, tympanitic to percussion, nontender to palpation, no organomegally appreciated Ext: 2+ pulses, 1+ pedal edema b/l Laboratory Results - last 24 hr 09/11/17 09/11/17 09/11/17 05:45 06:38 06:38 WBC 65.7 H* RBC 3.12 L Hgb 9.2 L Hct 28.5 L D MCV 91.4 MCH 29.4 MCHC 32.1 RDW 16.0 H Plt Count 101 L D MPV 8.3 Absolute Neuts (auto) 0.7 Neutrophils % 1.1 L Lymphocytes % 98.2 H Monocytes % 0.7 L Eosinophils % 0.0 D Basophils % 0.0 Nucleated RBC % 0 PT with INR 12.90 INR 1.14 PTT (Actin FS) 25.8 VBG pH POC VBG pCO2 POC VBG pO2 Mixed VBG HCO3 Sodium Potassium Chloride Carbon Dioxide Anion Gap BUN Creatinine Creat Clearance w eGFR Random Glucose Lactic Acid Calcium Total Bilirubin AST ALT Alkaline Phosphatase Troponin I Total Protein Albumin Lipase TSH Urine Color Yellow Urine Appearance Cloudy Urine pH 5.0 Ur Specific [place] 1.011 Urine Protein 3+ H Urine Glucose (UA) 1+ H Urine Ketones Negative Urine Blood Negative Urine Nitrite Negative Urine Bilirubin Negative Urine Urobilinogen Negative Ur Leukocyte Esterase Negative Urine WBC (Auto) 4 Urine RBC (Auto) 1 Urine Bacteria Rare Urine Mucus Rare 09/11/17 09/11/17 09/11/17 06:38 08:05 08:05 WBC RBC Hgb Hct MCV MCH MCHC RDW Plt Count MPV Absolute Neuts (auto) Neutrophils % Lymphocytes % Monocytes % Eosinophils % Basophils % Nucleated RBC % PT with INR 12.60 INR 1.12 PTT (Actin FS) 23.3 VBG pH 7.32 POC VBG pCO2 28.0 L POC VBG pO2 59.4 H Mixed VBG HCO3 13.8 L* Sodium 134 L Potassium 5.4 H D Chloride 103 Carbon Dioxide 15 L D Anion Gap 16 BUN 130 H* Creatinine 7.0 H Creat Clearance w eGFR 7.96 Random Glucose 155 H Lactic Acid Calcium 8.2 L Total Bilirubin 0.4 AST 7 L D ALT 19 Alkaline Phosphatase 68 Troponin I Total Protein 6.2 L Albumin 3.6 Lipase 276 TSH Urine Color Urine Appearance Urine pH Ur Specific [place] Urine Protein Urine Glucose (UA) Urine Ketones Urine Blood Urine Nitrite Urine Bilirubin Urine Urobilinogen Ur Leukocyte Esterase Urine WBC (Auto) Urine RBC (Auto) Urine Bacteria Urine Mucus 09/11/17 09/11/17 08:05 08:05 WBC RBC Hgb Hct MCV MCH MCHC RDW Plt Count MPV Absolute Neuts (auto) Neutrophils % Lymphocytes % Monocytes % Eosinophils % Basophils % Nucleated RBC % PT with INR INR PTT (Actin FS) VBG pH POC VBG pCO2 POC VBG pO2 Mixed VBG HCO3 Sodium Cancelled Potassium Cancelled Chloride Cancelled Carbon Dioxide Cancelled Anion Gap Cancelled BUN Cancelled Creatinine Cancelled Creat Clearance w eGFR Cancelled Random Glucose Cancelled Lactic Acid 1.3 Calcium Cancelled Total Bilirubin Cancelled AST Cancelled ALT Cancelled Alkaline Phosphatase Cancelled Troponin I < 0.02 Total Protein Cancelled Albumin Cancelled Lipase TSH Cancelled Urine Color Urine Appearance Urine pH Ur Specific [place] Urine Protein Urine Glucose (UA) Urine Ketones Urine Blood Urine Nitrite Urine Bilirubin Urine Urobilinogen Ur Leukocyte Esterase Urine WBC (Auto) Urine RBC (Auto) Urine Bacteria Urine Mucus ASSESSMENT/PLAN: Pt is a 66 y/o M with PMH CLL, HIV, BPH, ?CKD (baseline Silica Mixer Operator 2 per primary care at [facility]), NIDDM, Cirrhosis, hx of IVDA who presented to ED with complaint of incomplete urinary voiding and lower abdominal fullness since Thrus associated with decreased sleep, and night sweats. Exam significant for heart murmur, lung crackles, abdominal distension, pedal edema. Labs sig for leukocytosis, uremia, thrombocytopenia, proteinuria. Pt admitted for RICHY on CKD. #RICHY on CKD stage 4 ([facility] records from June) -per [facility], baseline BUN/Silica Mixer Operator 45/2.6 -BUN/Silica Mixer Operator 130/7 on admission -UA significant for 3+ proteinuria -Probable prerenal component. Pt has had decreased PO intake and has increased his metalazone and losartan. -? component urinary retention. Pt hist suggestive of retention. -F/u urine output -ortiz placed in ED -Urine lytes -Nephrology consult appreciated #Divirticulitis -incidental finding on CTAP -pt asymptomatic -immunocompromised 2/2 HIV & CLL -Zosyn given in ED -Flagyl 500 IVPB q8h -ID consult #CLL, Hepatosplenomegally, Thrombocytopenia -per [facility], stable WBC at 60. No intervention indicated unless symptomatic or WBC > 100 -Hepatosplenomegally on CT -Heme/onc consult #? CHF. Primary cardiomyopathy per [facility] records dx'ed on 04/29/2013 -pt does not recall hearing this diagnosis. Has no hist of orthopnia. -does have markedly decreased exercise tolerance with COREA after walking 1 city block. Pedal edema and mild bibasilar crackles on lung exam -pt had EF of 45% in the past. Most recent Echo from [facility] records had EF 65% in 2016 -Pt had cath 08/26/2014 with normal coronaries, and normal LV function -In june, pt was to take carvedilol 3.125. Pt not on ACEI/ARB -Echo #BPH -Flomax 0.4 bid (home dose .4 daily) -Ortiz placed in ED #HTN -c/w home Coreg, Nifedipine #NIDDM -Hold home glipizide -ISS ACHS -BGM ACHS #Cirrhosis -stable #Hx Kidney stones -not active. Stone noted on CT #FEN -Not on fluids -hyper K s/p Kayexelate in ED -DM/Na controlled diet #PPx -Hep subQ #Dispo -Tele for close monitoring Zeeshan Cruz MD PGY-2 IM Visit type - Emergency Visit Emergency Visit: Yes ED Registration Date: 09/11/17 Care time: The patient presented to the Emergency Department on the above date and was hospitalized for further evaluation of their emergent condition. - New Patient This patient is new to me today: Yes Date on this admission: 09/11/17 - Critical Care Critical Care patient: No Hospitalist Screening - Colonoscopy Questionnaire Colonoscopy Questionnaire: Colonoscopy Questionnaire - Patient: 50 - 75 years old and never had a screening colonoscopy: Unknown History of colon or rectal polyps, or CA: Unknown History of IBD, Crohn's disease or UC: Unknown History of abdominal radiation therapy as a child: Unknown - Relative: 1 with colon or rectal CA, or polyps at age 60 or younger: Unknown Colon or rectal CA diagnosed at age 45 or younger: Unknown Multiple relatives with colon or rectal CA: Unknown - Outcome: Screening Result: Negative Screen
[2017-09-11] MEDS: INSULIN SLIDING SCALE (NOVOLOG) 1 VIAL SQ SCH ×3 (12:00→22:22)
[2017-09-11] MEDS: RANITIDINE HCL 150 MG TABLET (FP) PO SCH (12:00)
[2017-09-11] MEDS: MULTIVITAMINS (DAILY MVI) TABLET (FP) PO SCH (12:00)
[2017-09-11] MEDS: HEPARIN NA (PORCINE) 5,000 UNITS/ML 1ML VIAL SQ SCH ×2 (12:00→22:17)
[2017-09-11] MEDS ORDERED: INSULIN (NOVOLOG) ASPART 100 UNITS/ML 10ML VIAL ONE (12:26)
[2017-09-11 12:47] LABS: ANION GAP 16 (8-16); CALCIUM 7.9 mg/dL (8.5-10.1); CHLORIDE 102 mmol/L (98-107); CO2 16 mmol/L (21-32); CREATININE 7.2 mg/dL (0.7-1.3); GLUCOSE,RANDOM 137 mg/dL (74-106); SODIUM 134 mmol/L (136-145)
[2017-09-11 13:02] LABS: BLOOD UREA NITROGEN 133 mg/dL (7-18)
--- NOTE | 2017-09-11 13:13 | PN ---
Teaching Attending Note Name of Resident: Zeeshan Cruz ATTENDING PHYSICIAN STATEMENT I saw and evaluated the patient. I reviewed the resident's note and discussed the case with the resident. I agree with the resident's findings and plan as documentedwith exceptions below. SUBJECTIVE: 66 yom with PMHx of CLL (s/p treatment 2 years ago, recent WBC 50s, being monitored), CKD stage IV (baseline Cr 2.2 in 06/2017), HIV on HAART (last viral load undetectable with CD4 >2000 in ), HCV s/p treatment, cirrhosis with portal hypertension, prior IV Heroine/cocaine use, exsmoker, HTN, Prior NICM last EF 65% in 2016, Cath x 2 with normal coronaries, NIDDM, chronic leg edema was in his USOH till 4-5 days ago, when started have poor appetite, lethargy, poor oral intake. Duncan bloated, so doubled his lasix to 80 mg BID and resumed his metolazone (that was stopped in 06/2017 by his neprologist). Has not been eating much. Started having sensation of incomplete empyting of bladder with suprapubic discomfort, so came to ED. In ED, was found with WBC 65, BUN 130s and Cr 7, s/p ortiz placement with 300 ml urine. Denies any fevers, chills, nausea, vomiting, pruritus, diarrhea (rather reports constipation, s/ BM this AM in ED), abdominal pain or crampy, dyspnea, new orthopnea, PND, chest pain, palpitations or dizziness. His leg swelling is actually better currently than usual per him Currently feels hungry but overall unchanged. Also per records, patient was advised by his bit welder to stop his losartan in 06/2017, but per patient, states was told to double the double to either 50 or 100 mg then and reportedly has been taking the same. Also had stopped his flomax as felt did not need it. OBJECTIVE: Vital Signs Period Temp Pulse Resp BP Sys/[place]ura Pulse Ox Last 24 Hr 98.3 F-98.4 F 64-69 17-18 125-133/56-57 95-96 Intake & Output 09/08/17 09/09/17 09/10/17 09/11/17 23:59 23:59 23:59 23:59 Weight 180 lb GENERAL: Awake, alert, and fully oriented, in no acute distress. HEAD: Normal with no signs of trauma. EYES: Pupils equal, round and reactive to light, extraocular movements intact, sclera anicteric, conjunctiva clear. No lid lag. EARS, NOSE, THROAT: Ears normal, nares patent, oropharynx clear without exudates. Moist mucous membranes. NECK: soft, supple, no JVD visualized LUNGS: Breath sounds equal, clear to auscultation bilaterally. No wheezes, and no crackles. No accessory muscle use. HEART: SS2 regular ABDOMEN: Soft, distended, mild suprapubic tenderness otherwise non tender throughout, no CVA tenderness, positive bowel sounds, ?hepatic margin > 1 cm below costal margin, limited given distension MUSCULOSKELETAL: Normal range of motion at all joints. No bony deformities or tenderness. No CVA tenderness. UPPER EXTREMITIES: 2+ pulses, warm, well-perfused. No cyanosis. No clubbing. No peripheral edema. LOWER EXTREMITIES: 2+ pulses, warm, well-perfused. No calf tenderness. No peripheral edema. NEUROLOGICAL: AAOX3, power 5/5, sensation intact to light touch, facial symmetry. Normal speech. Gait deferred PSYCHIATRIC: Cooperative. Good eye contact. Appropriate mood and affect. SKIN: Warm, dry, normal turgor, no rashes or lesions noted, normal capillary refill. Home Medications Medication Instructions Recorded Ritonavir [Norvir] 100 mg PO BID #0 tablet 01/07/13 Allopurinol [Zyloprim -] 100 mg PO DAILY 09/01/15 Carvedilol [Coreg -] 6.25 mg PO BID 09/01/15 Furosemide [Lasix -] 80 mg PO DAILY 09/01/15 Glipizide 5 mg PO BID 09/01/15 Lidocaine 5% Patch [Lidoderm Patch 1 patch TP DAILY 09/01/15 -] Multivitamins [Tab-A-Vit -] 1 tab PO DAILY 09/01/15 Nifedipine [Nifedical Xl] 60 mg PO DAILY 09/01/15 Raltegravir [Isentress -] 400 mg PO BID 09/01/15 Ranitidine HCl [Zantac] 150 mg PO DAILY 09/01/15 Rilpivirine HCl [Edurant] 25 mg PO DAILY 09/01/15 Darunavir Ethanolate [Prezista -] 600 mg PO BID 07/09/16 Losartan Potassium [Cozaar -] 50 mg PO DAILY 07/09/16 Active Medications Carvedilol (Coreg -) 3.125 mg PO BID [facility] Heparin Sodium (Porcine) (Heparin -) 5,000 unit SQ TID [facility] Last Admin: 09/11/17 12:00 Dose: 5,000 unit Insulin Aspart (Novolog Vial Sliding Scale -) 1 vial SQ ACHS [facility]; Protocol Last Admin: 09/11/17 12:00 Dose: 2 units Multivitamins/Minerals/Vitamin C (Tab-A-Vit -) 1 tab PO DAILY [facility] Last Admin: 09/11/17 12:00 Dose: 1 tab Nifedipine (Procardia Xl -) 60 mg PO DAILY [facility] Ranitidine HCl (Zantac -) 150 mg PO DAILY [facility] Last Admin: 09/11/17 12:00 Dose: 150 mg Tamsulosin HCl (Flomax -) 0.4 mg PO BID [facility] Laboratory Results - last 24 hr 09/11/17 09/11/17 09/11/17 05:45 06:38 06:38 WBC 65.7 H* RBC 3.12 L Hgb 9.2 L Hct 28.5 L D MCV 91.4 MCH 29.4 MCHC 32.1 RDW 16.0 H Plt Count 101 L D MPV 8.3 Absolute Neuts (auto) 0.7 Total Counted 100 Neutrophils % 1.1 L Neutrophils % (Manual) 1.0 L Lymphocytes % 98.2 H Lymphocytes % (Manual) 97.0 H* Monocytes % 0.7 L Monocytes % (Manual) 2 L Eosinophils % 0.0 D Basophils % 0.0 Nucleated RBC % 0 Platelet Estimate Slt decrease PT with INR 12.90 INR 1.14 PTT (Actin FS) 25.8 VBG pH POC VBG pCO2 POC VBG pO2 Mixed VBG HCO3 Sodium Potassium Plasma Potassium Chloride Carbon Dioxide Anion Gap BUN Creatinine Creat Clearance w eGFR Random Glucose Lactic Acid Calcium Total Bilirubin AST ALT Alkaline Phosphatase Troponin I Total Protein Albumin Lipase TSH Urine Color Yellow Urine Appearance Cloudy Urine pH 5.0 Ur Specific [place] 1.011 Urine Protein 3+ H Urine Glucose (UA) 1+ H Urine Ketones Negative Urine Blood Negative Urine Nitrite Negative Urine Bilirubin Negative Urine Urobilinogen Negative Ur Leukocyte Esterase Negative Urine WBC (Auto) 4 Urine RBC (Auto) 1 Urine Bacteria Rare Urine Mucus Rare Ur Random Sodium Ur Random Potassium Ur Random Chloride Urine Creatinine 09/11/17 09/11/17 09/11/17 06:38 08:05 08:05 WBC RBC Hgb Hct MCV MCH MCHC RDW Plt Count MPV Absolute Neuts (auto) Total Counted Neutrophils % Neutrophils % (Manual) Lymphocytes % Lymphocytes % (Manual) Monocytes % Monocytes % (Manual) Eosinophils % Basophils % Nucleated RBC % Platelet Estimate PT with INR 12.60 INR 1.12 PTT (Actin FS) 23.3 VBG pH 7.32 POC VBG pCO2 28.0 L POC VBG pO2 59.4 H Mixed VBG HCO3 13.8 L* Sodium 134 L Potassium 5.4 H D Plasma Potassium Chloride 103 Carbon Dioxide 15 L D Anion Gap 16 BUN 130 H* Creatinine 7.0 H Creat Clearance w eGFR 7.96 Random Glucose 155 H Lactic Acid Calcium 8.2 L Total Bilirubin 0.4 AST 7 L D ALT 19 Alkaline Phosphatase 68 Troponin I Total Protein 6.2 L Albumin 3.6 Lipase 276 TSH Urine Color Urine Appearance Urine pH Ur Specific [place] Urine Protein Urine Glucose (UA) Urine Ketones Urine Blood Urine Nitrite Urine Bilirubin Urine Urobilinogen Ur Leukocyte Esterase Urine WBC (Auto) Urine RBC (Auto) Urine Bacteria Urine Mucus Ur Random Sodium Ur Random Potassium Ur Random Chloride Urine Creatinine 09/11/17 09/11/17 09/11/17 08:05 08:05 11:05 WBC RBC Hgb Hct MCV MCH MCHC RDW Plt Count MPV Absolute Neuts (auto) Total Counted Neutrophils % Neutrophils % (Manual) Lymphocytes % Lymphocytes % (Manual) Monocytes % Monocytes % (Manual) Eosinophils % Basophils % Nucleated RBC % Platelet Estimate PT with INR INR PTT (Actin FS) VBG pH POC VBG pCO2 POC VBG pO2 Mixed VBG HCO3 Sodium Cancelled Potassium Cancelled Plasma Potassium Chloride Cancelled Carbon Dioxide Cancelled Anion Gap Cancelled BUN Cancelled Creatinine Cancelled Creat Clearance w eGFR Cancelled Random Glucose Cancelled Lactic Acid 1.3 0.9 Calcium Cancelled Total Bilirubin Cancelled AST Cancelled ALT Cancelled Alkaline Phosphatase Cancelled Troponin I < 0.02 Total Protein Cancelled Albumin Cancelled Lipase TSH Cancelled Urine Color Urine Appearance Urine pH Ur Specific [place] Urine Protein Urine Glucose (UA) Urine Ketones Urine Blood Urine Nitrite Urine Bilirubin Urine Urobilinogen Ur Leukocyte Esterase Urine WBC (Auto) Urine RBC (Auto) Urine Bacteria Urine Mucus Ur Random Sodium Ur Random Potassium Ur Random Chloride Urine Creatinine 07/31/18 07/31/18 07/31/18 11:05 11:05 11:38 WBC RBC Hgb Hct MCV MCH MCHC RDW Plt Count MPV Absolute Neuts (auto) Total Counted Neutrophils % Neutrophils % (Manual) Lymphocytes % Lymphocytes % (Manual) Monocytes % Monocytes % (Manual) Eosinophils % Basophils % Nucleated RBC % Platelet Estimate PT with INR INR PTT (Actin FS) VBG pH POC VBG pCO2 POC VBG pO2 Mixed VBG HCO3 Sodium 134 L Potassium 5.0 Plasma Potassium 4.6 Chloride 102 Carbon Dioxide 16 L Anion Gap 16 BUN 133 H* Creatinine 7.2 H Creat Clearance w eGFR 7.71 Random Glucose 137 H Lactic Acid Calcium 7.9 L Total Bilirubin AST ALT Alkaline Phosphatase Troponin I Total Protein Albumin Lipase TSH Urine Color Urine Appearance Urine pH Ur Specific [place] Urine Protein Urine Glucose (UA) Urine Ketones Urine Blood Urine Nitrite Urine Bilirubin Urine Urobilinogen Ur Leukocyte Esterase Urine WBC (Auto) Urine RBC (Auto) Urine Bacteria Urine Mucus Ur Random Sodium Ur Random Potassium Ur Random Chloride Urine Creatinine Cancelled 09/11/17 11:50 WBC RBC Hgb Hct MCV MCH MCHC RDW Plt Count MPV Absolute Neuts (auto) Total Counted Neutrophils % Neutrophils % (Manual) Lymphocytes % Lymphocytes % (Manual) Monocytes % Monocytes % (Manual) Eosinophils % Basophils % Nucleated RBC % Platelet Estimate PT with INR INR PTT (Actin FS) VBG pH POC VBG pCO2 POC VBG pO2 Mixed VBG HCO3 Sodium Potassium Plasma Potassium Chloride Carbon Dioxide Anion Gap BUN Creatinine Creat Clearance w eGFR Random Glucose Lactic Acid Calcium Total Bilirubin AST ALT Alkaline Phosphatase Troponin I Total Protein Albumin Lipase TSH Urine Color Urine Appearance Urine pH Ur Specific [place] Urine Protein Urine Glucose (UA) Urine Ketones Urine Blood Urine Nitrite Urine Bilirubin Urine Urobilinogen Ur Leukocyte Esterase Urine WBC (Auto) Urine RBC (Auto) Urine Bacteria Urine Mucus Ur Random Sodium 27 Ur Random Potassium 40.1 Ur Random Chloride 18 Urine Creatinine 144.0 EKG NSR, no acute changes, no peaking of T waves CT A/P results reviewed ASSESSMENT AND PLAN: 66 yom with extensive PMHx as above admitted with RICHY, hyperkalemia and urinary symptoms. -RICHY on CKD stage IV (baseline cr 2.2 in 06/2017), suspect multifactorial from poor oral intake, medications (self increase in lasix, resumption of metolazone , continuation of ARB) with urinary retention -Hyperkalemia from above -Left perinephric stranding, ?clinically not consistent with pyelonephritis -HIV on HAART -CLL (recent WBC 50s) -HIV On HAART -Treated HCV -Cirrhosis with portal hypertension -H/o IVDU (heroine/cocaine) -HTN -NIDDM -?BPH -H/o NICM, last EF 65% in 2016 -Ex -smoker Plan: EKG with no concerns. s/p kayexalate in ED, K improved. monitor on telemetry. Nephrology consulted with Dr. Luciano, case discussed. WIll follow up recs. Hold lasix/metolazone/losartan. Likely needs hydration with close monitoring. Strict I/Os. Renal/bladder Ultrasound. Renal dosing of medications. No clinical s/s concerning for infectious process currently. ID consult with Dr. Bustillos, case discussed. ?left perinephric stranding. HAART renal dosing per ID. Continue coreg and nifedipine as BP tolerated. Oncology input. DVTPPX with heparin. Admit to telemetry. Plan discussed in detail with patient and all questions answered. Patient relays understanding and in agreement. Care co-ordinated with ED, nephrology, ID and oncology. Total admit time 70 min.
--- NOTE | 2017-09-11 15:29 | CONSULT ---
Consult Consult Specialty:: Nephrology Reason for Consultation:: RICHY - History of Present Illness Chief Complaint: decreased urination History of Present Illness: Pt is a 66 year old male with pmhx of CKD, liver cirrhosis, hep c, HIV, nephrolithiasis and BPH who presents to the ER with decreased urine output. He was found to be in acute renal failure and I was called to evaluate him. He denies shortness of breath. He does complain of chonic lower ext edema. He says that his PO intake has not bee great. He had doubled the dose of lasix that he was taking at home. He also was mistakingly taking double the dose of his ARB. He says that he began to feel that his urine output decreased so he increased the amount of diuretics. He was also taking metolazone at times. He denies nsaid use. He denies hematuria. 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 He did go to [facility] for liver transplant eval in the past but he does not know what came of it. - History Source History Provided By: Patient, Medical Record - Past Medical History Cardio/Vascular: Yes: HTN Hepatobiliary: Yes: Cirrhosis, Hepatitis C Renal/: Yes: Renal Inusuff, Other (hesitancy, intermittemncy, poor stream) Infectious Disease: Yes: HIV Endocrine: Yes: Diabetes Mellitus Additional Medical History: lymphocytic leuckemia - Past Surgical History Past Surgical History: Yes: None - Alcohol/Substance Use Hx Alcohol Use: No History of Substance Use: reports: Cocaine (quit x 25 yrs), Heroin - Smoking History Smoking history: Former smoker Have you smoked in the past 12 months: No Aproximately how many cigarettes per day: 0 If you are a former smoker, when did you quit?: > 25 yrs ago - Social History Usual Living Arrangement: Alone ADL: Independent History of Recent Travel: No Home Medications - Allergies Allergies/Adverse Reactions: Allergies Allergy/AdvReac Type Severity Reaction Status Date / Time No Known Allergies Allergy Verified 09/11/17 06:54 - Home Medications Home Medications: Ambulatory Orders Ritonavir [Norvir] 100 mg PO BID #0 tablet 01/07/13 Allopurinol [Zyloprim -] 100 mg PO DAILY 09/01/15 Carvedilol [Coreg -] 3.125 mg PO BID 09/01/15 Furosemide [Lasix -] 80 mg PO DAILY 09/01/15 Glipizide 5 mg PO BID 09/01/15 Lidocaine 5% Patch [Lidoderm Patch -] 1 patch TP DAILY 09/01/15 Multivitamins [Tab-A-Vit -] 1 tab PO DAILY 09/01/15 Nifedipine [Nifedical Xl] 60 mg PO DAILY 09/01/15 Raltegravir [Isentress -] 400 mg PO BID 09/01/15 Ranitidine HCl [Zantac] 150 mg PO DAILY 09/01/15 Rilpivirine HCl [Edurant] 25 mg PO DAILY 09/01/15 Darunavir Ethanolate [Prezista -] 600 mg PO BID 07/09/16 Metolazone 2.5 mg PO Q2D 09/11/17 Family Disease History - Family Disease History Family Disease History: Heart Disease: Father ( of [place] at 55, ETOH), Other: Father, Mother (hypertension), Sister (hypertension) Review of Systems - Review of Systems Constitutional: reports: Malaise Eyes: reports: No Symptoms HENT: reports: No Symptoms Neck: reports: No Symptoms Cardiovascular: reports: Edema Respiratory: reports: No Symptoms Gastrointestinal: reports: Other (ascites) Genitourinary: reports: Dysuria Neurological: reports: No Symptoms Endocrine: reports: No Symptoms Psychiatric: reports: No Symptoms Physical Exam Vital Signs: Vital Signs Temperature 98.3 F 09/11/17 13:40 Pulse Rate 78 09/11/17 13:40 Respiratory Rate 18 09/11/17 13:40 Blood Pressure 133/77 09/11/17 13:40 O2 Sat by Pulse Oximetry (%) 98 09/11/17 13:40 Constitutional: Yes: Calm Eyes: Yes: Conjunctiva Clear HENT: Yes: Atraumatic Neck: Yes: Supple Cardiovascular: Yes: S1, S2 Respiratory: Yes: CTA Bilaterally Gastrointestinal: Yes: Ascites. No: Tenderness Renal/: Yes: Ortiz Present Musculoskeletal: Yes: WNL Edema: Yes Edema: LLE: 1+, RLE: 1+ Neurological: Yes: Oriented Psychiatric: Yes: Oriented Labs: CBC, BMP 09/11/17 06:38 09/11/17 11:05 Laboratory Tests 09/11/17 09/11/17 09/11/17 06:38 06:38 08:05 WBC 65.7 H* Hgb 9.2 L Plt Count 101 L D INR 1.12 Sodium 134 L Potassium 5.4 H D Plasma Potassium BUN 130 H* Creatinine 7.0 H Ur Random Sodium Urine Creatinine 09/11/17 09/11/17 09/11/17 11:05 11:05 11:50 WBC Hgb Plt Count INR Sodium Potassium Plasma Potassium 4.6 BUN 133 H* Creatinine Ur Random Sodium 27 Urine Creatinine 144.0 Imaging - Results Cat Scan: Report Reviewed Ultrasound: Report Reviewed Problem List - Problems (1) Acute urinary retention Code(s): R33.8 - OTHER RETENTION OF URINE (2) Cirrhosis of liver Code(s): K74.60 - UNSPECIFIED CIRRHOSIS OF LIVER (3) Renal insufficiency Code(s): N28.9 - DISORDER OF KIDNEY AND URETER, UNSPECIFIED (4) Chronic hepatitis C Code(s): B18.2 - CHRONIC VIRAL HEPATITIS C (5) Human immunodeficiency virus (HIV) seropositivity Code(s): Z21 - ASYMPTOMATIC HUMAN IMMUNODEFICIENCY VIRUS INFECTION STATUS Assessment/Plan Current Medications Generic Name Dose Route Start Last Admin Trade Name Freq PRN Reason Stop Dose Admin Carvedilol 3.125 mg 09/11/17 13:15 Coreg - PO BID [facility] Heparin Sodium (Porcine) 5,000 unit 09/11/17 12:00 09/11/17 12:00 Heparin - SQ 5,000 unit TID [facility] Administration Insulin Aspart 1 vial 09/11/17 11:00 09/11/17 12:00 Novolog Vial Sliding Scale - SQ 2 units ACHS [facility] Administration Protocol Multivitamins/Minerals/Vitamin C 1 tab 09/11/17 11:30 09/11/17 12:00 Tab-A-Vit - PO 1 tab DAILY [facility] Administration Nifedipine 60 mg 09/11/17 13:15 Procardia Xl - PO DAILY [facility] Ranitidine HCl 150 mg 09/11/17 11:30 09/11/17 12:00 Zantac - PO 150 mg DAILY [facility] Administration Tamsulosin HCl 0.4 mg 09/11/17 22:00 Flomax - PO BID [facility] Impression 1. RICHY 2. 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 HIV 4. liver cirrhosis 5. Hep C 6. nephrolothiasis 7. DM 8. BPH 9. HTN 10. CLL Plan - reviewed labs and meds - renal failure appears to be acute on chronic - recommend holding diuretics and arb, pt had been doubling up on doses on his own - will give a trail of saline - monitor urine output - keep ortiz in place - FENa is about 1 (in the setting of taking diuretics) - check urine urea - repeat bmp in am - will send renal workup - discussed with ER - discussed with medical team Dr Wells
[2017-09-11] MEDS ORDERED: SODIUM CHLORIDE 1,000 ML IV SCH (15:45)
--- NOTE | 2017-09-11 16:40 | PN ---
Progress Note (short form) - Note Progress Note: ID consult dictated Acute renal failure ?diverticulitis CLL HIV- stable hep c treated continue ivf rocephin/flagyl to cover possible colitis/diverticulitis f/u cultures sttol culture and cdfii if he develops diarrhea will contact pharmacy to see if we have his meds available if possible will try to start in am if okay with renal patient lives alone and didnot bring his meds with him Problem List - Problems (1) Acute kidney failure Code(s): N17.9 - ACUTE KIDNEY FAILURE, UNSPECIFIED (2) Diverticulitis Code(s): K57.92 - DVTRCLI OF INTEST, PART UNSP, W/O PERF OR ABSCESS W/O BLEED (3) HIV (human immunodeficiency virus infection) Code(s): B20 - HUMAN IMMUNODEFICIENCY VIRUS [HIV] DISEASE
--- NOTE | 2017-09-11 16:43 | ECHO ---
Name: JOSÉ MANUEL VIDAL Exam:Adult Echocardiogram Study Date: 09/11/2017 01:25 PM Age: 66 yrs Reason For Study: PEDAL EDEMA AND COREA R/O CHF Height: 70 in Weight: 180 lb BSA: 2.0 m2 MMode/2D Measurements & Calculations IVSd: 0.83 cm Ao root diam: 3.3 cm LVIDd: 5.4 cm LA dimension: 3.9 cm LVIDs: 3.9 cm LVPWd: 0.77 cm EDV(Teich): 138.5 ml TAPSE: 1.3 cm ESV(Teich): 66.5 ml RV S Layo: 12.4 cm/sec Doppler Measurements & Calculations MV E max layo: 65.1 cm/sec MR max layo: 281.1 cm/sec MV A max layo: 80.2 cm/sec MR max P.6 mmHg MV E/A: 0.81 MV dec time: 0.19 sec TR max layo: 218.1 cm/sec PI end-d layo: 57.2 cm/sec TR max P.3 mmHg Med Peak E' Layo: 6.2 cm/sec Med E/e': 10.4 Lat Peak E' Layo: 10.8 cm/sec Lat E/e': 6.0 Procedure A two-dimensional transthoracic echocardiogram with color flow and Doppler was performed. The patient was in normal sinus rhythm during the exam. Left Ventricle The left ventricle is normal in size. Left ventricular systolic function is normal. E/A reversal cons istent with but not diagnostic of poor LV compliance. Right Ventricle The right ventricle is grossly normal size. The right ventricle is not well visualized. The right ximena tricular systolic function is normal. Atria The left atrial size is normal. The right atrium is mildly dilated. Mitral Valve There is mild mitral annular calcification. The mitral valve is normal. There is mild mitral regurgit ation. Tricuspid Valve The tricuspid valve is normal. There is mild tricuspid regurgitation. Right ventricular systolic pres sure is normal. Aortic Valve The aortic valve opens well. The aortic valve is trileaflet. There is mild aortic sclerosis.;. No aor tic regurgitation is present. Pulmonic Valve The pulmonic valve is not well visualized. The pulmonic valve is not well seen, but is grossly normal . Trace pulmonic valvular regurgitation. Great Vessels The aortic root is normal size. Moderately dilated inferior vena cava. Pericardium/Pleura There is no pericardial effusion. Interpretation Summary Left ventricular systolic function is normal. E/A reversal consistent with but not diagnostic of poor LV compliance The right ventricular systolic function is normal. The right atrium is mildly dilated. There is mild mitral annular calcification. There is mild mitral regurgitation. There is mild tricuspid regurgitation. There is mild aortic sclerosis.; Trace pulmonic valvular regurgitation. Moderately dilated inferior vena cava There is no pericardial effusion. MD Surya Dumont 09/11/2017 04:42 PM
--- NOTE | 2017-09-11 16:57 | EKG ---
Test Reason : Blood Pressure : / mmHG Vent. Rate : 060 BPM Atrial Rate : 060 BPM P-R Int : 180 ms QRS Dur : 108 ms QT Int : 448 ms P-R-T Axes : -04 035 031 degrees QTc Int : 448 ms NORMAL SINUS RHYTHM NORMAL ECG Confirmed by MD CONTRERAS GREGORY ([id number]) on 09/11/2017 4:56:47 PM Referred By: Confirmed By:LOREN CONTRERAS MD
[2017-09-11] MEDS: SODIUM BICARBONATE 650 MG TABLET PO SCH ×2 (17:20→22:17)
[2017-09-11] MEDS ORDERED: DEXTROSE 5%-WATER 100 ML IVPB ONE (17:48)
[2017-09-11] MEDS: CEFTRIAXONE 2 GM in DEXTROSE 5%-WATER 100 ML IVPB SCH (17:53)
[2017-09-11 18:57] LABS: RATIO URIN PROTEIN/URIN CREAT 1.79 MG/DL
--- NOTE | 2017-09-11 19:30 | CONS ---
DATE OF CONSULTATION: 09/11/2017 This is a 66-year-old man with a history of CLL for the last 3 years. He has a history of HIV, well controlled, CKD with baseline creatinine in the 2, hepatitis C treated, BPH, who now comes to the emergency room with complaints that he has been unable to urinate for the last 24 hours. He noted over the weekend that he became bloated and his abdomen got distended. He decided that he really should not eat as the abdomen was getting bloated. He doubled his Lasix and resumed his metolazone. He has been feeling for the last several days like he has not had good urine output. As well, he had stopped his Flomax. He has been unable to urinate for the last 24 hours and he came to the emergency room. In the ER, he was noted to have a BUN of 130 and a creatinine of 70. He had a Lara placed with 300 mL of urine output. He denies any fevers or chills. He otherwise feels well, though he says he still feels bloated. He did report having a good bowel movement today after receiving Kayexalate in the ER. PAST MEDICAL HISTORY: Notable for CLL. His white count is in the 50s and being monitored. He has a history of CKD, stage 4. Baseline creatinine is 2.2. HIV on HAART. Last viral load was undetectable with a CD4 greater than 1000 in June of this year. Hepatitis C, status post treatment. Cirrhosis with portal hypertension. He is a former substance user. He has a history of hypertension as well. ALLERGIES: No known drug allergies. MEDICATIONS: Include metolazone, Coreg, allopurinol, ritonavir, rilpivirine, ranitidine, raltegravir, nifedipine, multivitamins, lidocaine patch, glipizide, furosemide, and darunavir. He reports adherence with his medicine. He has not had any vomiting. Said he took his medications up until last night. He did not bring them into the emergency room with him. There is no history of any recent travel. SURGICAL HISTORY: Notable for left axillary lymph node biopsy. SOCIAL HISTORY: Former smoker. He quit 3 years ago. Former alcohol user. He stopped 3 years ago. Former substance use, which he also quit 3 years ago. REVIEW OF SYSTEMS: As per HPI. He has noted discomfort in his abdomen and generalized weakness. He notes night sweats, but denies any fevers. He has had no cough or shortness of breath. He has no abdominal pain. He did have a good bowel movement today. He has not been vomiting. PHYSICAL EXAMINATION: Vital Signs: Temperature is 98.3, pulse is 69, blood pressure is 119/53, respiratory rate is 18, weighs 81 kg. HEENT: He is normocephalic. Eyes are anicteric. Neck: Supple. Lungs: Clear to auscultation. Heart: Regular rate and rhythm. Abdomen: Soft, protuberant. It is mildly tympanitic. It is nontender throughout. He has no suprapubic pain. He reports having had suprapubic discomfort prior to admission when he could not urinate. He has no CVA tenderness. He has no skin breakdown. LABORATORY: White count is 65.7, hemoglobin 9.2, platelets of 101. He has a predominance of lymphocytes. His INR is normal at 1.1. Chemistries are notable for a BUN of 133, creatinine of 7.2, potassium is 5. Liver function tests are normal. Urinalysis is negative. Negative CT scan findings with concern for whether he has some mild diverticulitis and colitis. Renal ultrasound showed no evidence of obstruction. IN SUMMARY: This is a 66-year-old man admitted with acute renal failure, question of diverticulitis, CLL off of treatment at this time, HIV stable, hepatitis C treated. Continue with fluids. Management of renal function per Renal. Rocephin and Flagyl to cover possible colitis or diverticulitis. I would follow up with cultures regarding his HIV. Will contact the pharmacy to see if we have his medications. If possible, we will try to start them in the morning if okay with Renal. I am not aware that any of these medications are nephrotoxic, but we will discuss with Renal before resuming them in the morning. If he develops diarrhea, I would send the stool for culture and Clostridium difficile. Further recommendations to follow. Case was discussed with the hospitalist. NAINA LEOS M.D. [id number]
--- NOTE | 2017-09-11 20:36 | PN ---
Progress Note (short form) - Note Progress Note: Consult dictated 66 year old with multiple co-morbid medical problems enters with RICHY superimposed on CKD. Past history of hepatitis C -s/p treament, IV substance abuse in past , HIV under therapy, BPH, DM, HBP cirrhosis, portal hypertension . Patient with history of CLL treated with immunotherapy . LAST TREATMENT 04/2016. Patient has elevated WBC, with NC/NC anemia and some degree of thrombocytopenia. The anemia may be secondary to his CLL with marrow replacement , hypersplenism secondary to liver disease, underlying cirrhosis, chronic/acute disease (kidneys ) and /or meds (HAART) Similarly his thrombocytopenia may be secondary to CLL, cirrhosis, portal hypertension with hypersplenism, meds, and possibly underlying infection. WBC reveals 1% PMN's which is adequate. No therapy required for CLL at this time. On P.E. has right axillary adenopathy and inguinal adenopathy with palpable liver . All likely components of his CLL. CT also with retroperitoneal lymphadenopathy. Would monitor hemogram. Will check immunoglobulins.
--- NOTE | 2017-09-11 21:36 | CONS ---
DATE OF CONSULTATION: 09/11/2017 This 66-year-old enters with acute renal failure. Past history includes HIV disease, under therapy; CLL; hepatitis C, treated; cirrhosis with portal hypertension and hepatosplenomegaly. The patient apparently had decreased urine output, increased his Lasix and also was on Zaroxolyn. This he took intermittently. He came in from baseline BUN of 45 and creatinine of 2.6 to a BUN of 133 and creatinine of 7.2. Apparently the patient's HIV viral load is undetectable and his CD4 count is about 1100. He is followed up in the [facility]. PAST HISTORY: Includes CLL, treated at [facility] with olaratumab. HIV is being treated by the HAART regimen. There is additional history of hypertension, BPH, cirrhosis, non-insulin dependent diabetes, underlying chronic kidney disease. Patient underwent a left axillary lymph node biopsy 3 years ago. SOCIAL HISTORY: The patient is a former smoker, former alcohol abuser, former IV drug abuser including cocaine and heroin. He only drank regularly a quart and a half of vodka per week. ALLERGIES: No known allergies. CURRENT MEDICINES: Include HIV medicines, carvedilol 6.25 mg, Lasix 80 mg a day on home, glipizide 5 mg, multivitamins, nifedipine 60 mg, Zantac 150 mg, Cozaar. REVIEW OF SYSTEMS: HEENT: Patient describes some headaches, some difficulty with vision. No epistaxis. No dysphagia. No significant shortness of breath. No chest pain, palpitations. Some bloating, some constipation. Decreased urine output. Some shortness of breath with exertion. No significant back pain, bone pain, joint pain. No significant rashes. No bruisability. PHYSICAL EXAMINATION: Vital Signs: BP 111/53, pulse 64, respiratory rate 18, afebrile. HEENT: PERRLA, EOMs intact. Oropharynx is unremarkable. Neck: Supple. There is no cervical or supraclavicular nodes. There is a large 4-5 cm movable right axillary node. Lungs: There are diminished breath sounds bilaterally. Cardiac: RSR with systolic murmur. Abdomen: Distended. The liver is felt 6 cm below the right costal margin. The spleen is not appreciated. Genitalia: Patient has a Lara in place. Testes are descended in a circumcised male. Extremities: With no significant edema. LABORATORY: Current laboratory is 134 sodium, potassium 50, chloride 102, CO2 18, BUN 133, creatinine 7.2, calcium 7.9, INR 1.12, PTT 23. Hematocrit 28.5, MCV 91, WBC 65.7, platelets 101, 1% neutrophils, 98% lymphocytes. Abdomen and pelvic CT shows small right kidney, small bilateral renal cyst, nonobstructing left renal stone measuring 7 mm, stranding of the left perinephric fat with a small amount of fluid. Mild dilatation of the left renal pelvis, hepatosplenomegaly with lobulation of the hepatic contour suggestive of cirrhosis. Questionable varicose veins. Ill-defined subcapsular hyperdensity, nonspecific maybe hematoma and maybe hemangioma. Multiple mesenteric and retroperitoneal adenopathy. Right adrenal low attenuation nodule that may represent an adenoma, likely accessory spleen diverticulosis without diverticulitis. IMPRESSION: This 66-year-old enters with acute kidney injury on top of chronic kidney disease. He has multiple comorbid medical problems including HIV under therapy; history of hepatitis C, previously treated; history of chronic lymphocytic leukemia, previously treated with immunotherapy; history of benign prostatic hypertrophy; history of essential hypertension; history of diabetes mellitus. Patient has anemia and thrombocytopenia, which may be related to the CLL and may be related to some component of hypersplenism. No therapy is required for this from the CLL point of view. Treating the underlying other medical conditions including the chronic and acute renal injury. No obvious obstructive uropathy. I thank you. LOPEZ CORMIER M.D. [id number]
[2017-09-11] MEDS: CARVEDILOL 3.125 MG TABLET (FP) PO SCH (22:16)
[2017-09-11] MEDS: TAMSULOSIN HCL 0.4 MG CAP.ER.24H (FP) PO SCH (22:17)
[2017-09-11] MEDS: NIFEdipine E.R 60 MG TABLET (UD) PO SCH (22:17)
[2017-09-12] MEDS ORDERED: MELATONIN 5 MG TABLETS PO ONE ×2 (01:53→23:45)
[2017-09-12] MEDS: INSULIN SLIDING SCALE (NOVOLOG) 1 VIAL SQ SCH ×3 (06:49→22:09)
[2017-09-12] MEDS: HEPARIN NA (PORCINE) 5,000 UNITS/ML 1ML VIAL SQ SCH ×3 (06:49→22:08)
[2017-09-12 06:54] LABS: HEMATOCRIT 25.7 % (35.4-49); HEMOGLOBIN 8.4 GM/dL (11.7-16.9); LYMPH % 98.2 % (8-40); MCH 29.3 pg (25.7-33.7); MCHC 32.5 g/dl (32.0-35.9); MEAN CELL VOLUME 90.3 fl (80-96); MEAN PLT VOLUME 8.2 fl (7.5-11.1); MONO % 0.4 % (3.8-10.2); NEUT % 1.4 % (42.8-82.8); PLATELET COUNT 86 K/MM3 (134-434); RBC 2.85 M/mm3 (4.00-5.60); RDW 15.8 % (11.9-15.9)
[2017-09-12 07:17] LABS: ALBUMIN 3.3 g/dl (3.4-5.0); ANION GAP 16 (8-16); CALCIUM 7.5 mg/dL (8.5-10.1); CHLORIDE 107 mmol/L (98-107); CO2 15 mmol/L (21-32); PHOSPHOROUS 8.5 mg/dL (2.5-4.9); POTASSIUM 4.9 mmol/L (3.5-5.1); SGPT/ALT 16 U/L (12-78); SODIUM 138 mmol/L (136-145)
[2017-09-12 07:19] LABS: ALK PHOS 60 U/L (45-117); BILIRUBIN,TOTAL 0.2 mg/dL (0.2-1.0); GLUCOSE,RANDOM 133 mg/dL (74-106); LDH 156 U/L (87-241); SGOT/AST 9 U/L (15-37); TOT PROT 5.8 g/dl (6.4-8.2)
[2017-09-12 07:38] LABS: WHITE BLOOD COUNT 41.4 K/mm3 (4.0-10.0)
[2017-09-12 07:40] LABS: BLOOD UREA NITROGEN 136 mg/dL (7-18); URIC ACID 14.1 mg/dL (2.6-7.2)
[2017-09-12] MEDS ORDERED: SODIUM CHLORIDE 1,000 ML IV SCH (09:10)
--- NOTE | 2017-09-12 09:35 | PN ---
Physical Exam: SUBJECTIVE: Hematology- oncology Patient seen and examined. Feels good No events overnight. Denies fever, chills, nausea, vomiting. Had bowel movement yesterday in ER. Receiving IV fluid NS 65 ml/hr On Antibiotic as per ID, Ceftriaxone 2mg daily and flagyl Treated with Obintuzumab, last treatment received in april 2016 Labs from 07/05/17: wbc 51.0, Hb 9.4, Hematocrit 30.2, MCv 93.8, Plt 73, Neutrophil 1%, Lymphocytes 83% PMH: del 17 p CLL, CKD stage 3, DM II, Hep C treated, HIV, BPH, Portal hypertension, Acute pericarditis in 2012, Ascities, cirrhosis, PSH: Lymph node biopsy Band ligation/ esophageal / gastric varices 12/31/15 Family history: HTN mother, Dementia mother, Heart disease father. Social: margaret substance abuse and iV drug abuse, stopped in 1995. stopped smoking 3 years ago. OBJECTIVE: Vital Signs Period Temp Pulse Resp BP Sys/Ventura Pulse Ox Last 24 Hr 97.8 F-98.4 F 64-78 17-20 111-133/53-77 95-98 GENERAL: The patient is awake, alert, and fully oriented, in no acute distress. HEAD: Normal with no signs of trauma. EYES: no palor, no icterus ENT: moist mucous membranes, No oral thrush NECK: Lymphnode palpable in right posterior triangle and supraclavicular. Axilla: Central/ apical lymphnode palpable in right axilla LUNGS: Breath sounds equal, clear to auscultation bilaterally, no wheezes, no crackles, no accessory muscle use. HEART: s1s2 normal ABDOMEN: Soft, nontender, distended,, no guarding, no rebound, Liver palpable, lower border palpable about 5 finger below costal margin, firm in consistency, non tender, smooth/ slightly lobulated. Fluid thrill and shifting dulness present EXTREMITIES: warm, edema 1 + PSYCH: Normal mood, SKIN: Warm, dry, 09/11/17 09/12/17 09/12/17 22:22 05:30 05:30 WBC 41.4 H* RBC 2.85 L Hgb 8.4 L Hct 25.7 L MCV 90.3 MCH 29.3 MCHC 32.5 RDW 15.8 Plt Count 86 L MPV 8.2 Absolute Neuts (auto) 0.6 Total Counted Neutrophils % 1.4 L Neutrophils % (Manual) Lymphocytes % 98.2 H Lymphocytes % (Manual) Monocytes % 0.4 L Monocytes % (Manual) Eosinophils % 0.0 Basophils % 0.0 Nucleated RBC % 0 Platelet Estimate Sodium 138 Potassium 4.9 Plasma Potassium Chloride 107 Carbon Dioxide 15 L Anion Gap 16 BUN 136 H* Creatinine 7.0 H Creat Clearance w eGFR 7.96 POC Glucometer 145 Random Glucose 133 H Lactic Acid Uric Acid 14.1 H* Calcium 7.5 L Phosphorus 8.5 H D Magnesium 3.0 H D Total Bilirubin 0.2 AST 9 L D ALT 16 Alkaline Phosphatase 60 LD Total 156 D Total Protein 5.8 L Albumin 3.3 L U Random Total Protein Ur Random Sodium Ur Random Potassium Ur Random Chloride Ur Random Urea Nitrogn Urine Creatinine Protein/Creatinin Ratio Generic Name Dose Route Start Last Admin Trade Name Freq PRN Reason Stop Dose Admin Carvedilol 3.125 mg 09/11/17 13:15 09/11/17 22:16 Coreg - PO 3.125 mg BID LIDIA Administration Darunavir 600 mg 09/12/17 10:00 Prezista - PO BID LIDIA Heparin Sodium (Porcine) 5,000 unit 09/11/17 12:00 09/12/17 06:49 Heparin - SQ 5,000 unit TID LIDIA Administration Metronidazole 500 mg in 100 mls @ 100 mls/hr 09/11/17 18:00 09/12/17 03:30 Flagyl 500mg Premixed Ivpb - IVPB 100 mls/hr Q8H-IV LIDIA Administration Ceftriaxone Sodium 2 gm/ 100 mls @ 200 mls/hr 09/11/17 16:45 09/11/17 17:53 Dextrose IVPB 200 mls/hr DAILY LIDIA Administration Protocol Sodium Chloride 1,000 mls @ 65 mls/hr 09/12/17 09:10 Normal Saline - IV 09/12/17 23:59 ASDIR LIDIA Insulin Aspart 1 vial 09/11/17 11:00 09/12/17 06:49 Novolog Vial Sliding Scale - SQ 2 units ACHS LIDIA Administration Protocol Multivitamins/Minerals/Vitamin C 1 tab 09/11/17 11:30 09/11/17 12:00 Tab-A-Vit - PO 1 tab DAILY LIDIA Administration Nifedipine 60 mg 09/11/17 13:15 09/11/17 22:17 Procardia Xl - PO Not Given DAILY [facility] Raltegravir 400 mg 09/12/17 10:00 Isentress - PO BID LIDIA Ranitidine HCl 150 mg 09/11/17 11:30 09/11/17 12:00 Zantac - PO 150 mg DAILY LIDIA Administration Ritonavir 100 mg 09/12/17 10:00 Norvir - PO BID LIDIA Sodium Bicarbonate 650 mg 09/12/17 09:15 Sodium Bicarbonate - PO TID LIDIA Tamsulosin HCl 0.4 mg 09/11/17 22:00 09/11/17 22:17 Flomax - PO 0.4 mg BID LIDIA Administration ASSESSMENT/PLAN: 66 y/o M with PMH h/o CKD, CLL, eradicated HCV, HIV under treatment, BPH, hepatospleenomegaly, lymphadenopath was admitted for urinary retention with RICHY on ckd. Problem list RICHY on CKD del 17 p CLL Anemia with thrombocytopenia with leucocytosis. Heptaospleenomegaly with portal hypertension with cirrhosis. Lymphadenopathy HIV on treatment. Plan. Patient has elevated BWC with normocytic anemia with Thrombocytopenia. Patient labs are stable in comparison to labs from 2017. No constitutional symptoms. No indication for treatment at present. Continue to monitor cbc. Visit type - Emergency Visit Emergency Visit: Yes ED Registration Date: 09/11/17 Care time: The patient presented to the Emergency Department on the above date and was hospitalized for further evaluation of their emergent condition. - New Patient This patient is new to me today: Yes Date on this admission: 09/13/17 - Critical Care Critical Care patient: No
[2017-09-12] MEDS ORDERED: DEXTROSE 5%-WATER 100 ML IVPB ONE (10:05)
[2017-09-12] MEDS: CEFTRIAXONE 2 GM in DEXTROSE 5%-WATER 100 ML IVPB SCH (10:16)
[2017-09-12] MEDS: SODIUM BICARBONATE 650 MG TABLET PO SCH ×3 (10:17→22:07)
[2017-09-12] MEDS: TAMSULOSIN HCL 0.4 MG CAP.ER.24H (FP) PO SCH ×2 (10:17→22:08)
[2017-09-12] MEDS: RANITIDINE HCL 150 MG TABLET (FP) PO SCH (10:17)
[2017-09-12] MEDS: MULTIVITAMINS (DAILY MVI) TABLET (FP) PO SCH (10:17)
[2017-09-12] MEDS: CARVEDILOL 3.125 MG TABLET (FP) PO SCH ×2 (10:17→22:08)
[2017-09-12] MEDS: RILPIVIRINE HCL 25 MG TABLET PO SCH (10:18)
[2017-09-12] MEDS: RALTEGRAVIR POTASSIUM 400 MG TAB PO SCH ×2 (10:18→22:09)
[2017-09-12] MEDS: NIFEdipine E.R 60 MG TABLET (UD) PO SCH (10:18)
[2017-09-12] MEDS: RITONAVIR 100 MG TABLET PO SCH ×2 (10:18→22:08)
[2017-09-12] MEDS: DARUNAVIR ETHANOLATE 600 MG TAB PO SCH ×2 (10:18→22:08)
[2017-09-12 11:23] LABS: ANISOCYTOSIS 1+; MACROCYTOSIS 0; PLATELET ESTIMATE DECREASED
--- NOTE | 2017-09-12 12:13 | PN ---
Progress Note, Physician History of Present Illness: Pt seen and examined at bedside. He says that he feels much better today. He denies shortness of breath. He denies increased edema. - Current Medication List Current Medications: Active Medications Carvedilol (Coreg -) 3.125 mg PO BID [facility] Last Admin: 09/12/17 10:17 Dose: 3.125 mg Darunavir (Prezista -) 600 mg PO BID [facility] Last Admin: 09/12/17 10:18 Dose: 600 mg Heparin Sodium (Porcine) (Heparin -) 5,000 unit SQ TID [facility] Last Admin: 09/12/17 06:49 Dose: 5,000 unit Metronidazole (Flagyl 500mg Premixed Ivpb -) 500 mg in 100 mls @ 100 mls/hr IVPB Q8H-IV LIDIA Last Admin: 09/12/17 10:17 Dose: 100 mls/hr Ceftriaxone Sodium 2 gm/ (Dextrose) 100 mls @ 200 mls/hr IVPB DAILY [facility]; Protocol Last Admin: 09/12/17 10:16 Dose: 200 mls/hr Sodium Chloride (Normal Saline -) 1,000 mls @ 65 mls/hr IV ASDIR LIDIA Stop: 09/12/17 23:59 Last Admin: 09/12/17 09:19 Dose: 65 mls/hr Insulin Aspart (Novolog Vial Sliding Scale -) 1 vial SQ ACHS [facility]; Protocol Last Admin: 09/12/17 06:49 Dose: 2 units Multivitamins/Minerals/Vitamin C (Tab-A-Vit -) 1 tab PO DAILY [facility] Last Admin: 09/12/17 10:17 Dose: 1 tab Nifedipine (Procardia Xl -) 60 mg PO DAILY [facility] Last Admin: 09/12/17 10:18 Dose: 60 mg Raltegravir (Isentress -) 400 mg PO BID [facility] Last Admin: 09/12/17 10:18 Dose: 400 mg Ranitidine HCl (Zantac -) 150 mg PO DAILY [facility] Last Admin: 09/12/17 10:17 Dose: 150 mg Ritonavir (Norvir -) 100 mg PO BID [facility] Last Admin: 09/12/17 10:18 Dose: 100 mg Sodium Bicarbonate (Sodium Bicarbonate -) 650 mg PO TID [facility] Last Admin: 09/12/17 10:17 Dose: 650 mg Tamsulosin HCl (Flomax -) 0.4 mg PO BID [facility] Last Admin: 09/12/17 10:17 Dose: 0.4 mg - Objective Vital Signs: Vital Signs Temperature 98.2 F 09/12/17 09:00 Pulse Rate 74 09/12/17 09:00 Respiratory Rate 14 09/12/17 09:00 Blood Pressure 136/58 09/12/17 09:00 O2 Sat by Pulse Oximetry (%) 96 09/11/17 21:00 Constitutional: Yes: Calm Eyes: Yes: Conjunctiva Clear HENT: Yes: Atraumatic Cardiovascular: Yes: S1, S2 Respiratory: Yes: CTA Bilaterally Gastrointestinal: Yes: Soft, Ascites Genitourinary: Yes: Lara Present Musculoskeletal: Yes: WNL Edema: Yes Edema: LLE: 1+, RLE: 1+ Neurological: Yes: Oriented Psychiatric: Yes: Oriented Labs: CBC, BMP 09/12/17 05:30 09/12/17 05:30 INR, PTT INR 1.12 (0.83-1.09) 09/11/17 08:05 Problem List - Problems (1) Acute urinary retention Code(s): R33.8 - OTHER RETENTION OF URINE (2) Cirrhosis of liver Code(s): K74.60 - UNSPECIFIED CIRRHOSIS OF LIVER (3) Renal insufficiency Code(s): N28.9 - DISORDER OF KIDNEY AND URETER, UNSPECIFIED (4) Chronic hepatitis C Code(s): B18.2 - CHRONIC VIRAL HEPATITIS C (5) Human immunodeficiency virus (HIV) seropositivity Code(s): Z21 - ASYMPTOMATIC HUMAN IMMUNODEFICIENCY VIRUS INFECTION STATUS Assessment/Plan Current Medications Generic Name Dose Route Start Last Admin Trade Name Nicolasa PRN Reason Stop Dose Admin Carvedilol 3.125 mg 09/11/17 13:15 09/12/17 10:17 Coreg - PO 3.125 mg BID LIDIA Administration Darunavir 600 mg 09/12/17 10:00 09/12/17 10:18 Prezista - PO 600 mg BID LIDIA Administration Heparin Sodium (Porcine) 5,000 unit 09/11/17 12:00 09/12/17 06:49 Heparin - SQ 5,000 unit TID LIDIA Administration Metronidazole 500 mg in 100 mls @ 100 mls/hr 09/11/17 18:00 09/12/17 10:17 Flagyl 500mg Premixed Ivpb - IVPB 100 mls/hr Q8H-IV LIDIA Administration Ceftriaxone Sodium 2 gm/ 100 mls @ 200 mls/hr 09/11/17 16:45 09/12/17 10:16 Dextrose IVPB 200 mls/hr DAILY LIDIA Administration Protocol Sodium Chloride 1,000 mls @ 65 mls/hr 09/12/17 09:10 09/12/17 09:19 Normal Saline - IV 09/12/17 23:59 65 mls/hr ASDIR LIDIA Administration Insulin Aspart 1 vial 09/11/17 11:00 09/12/17 06:49 Novolog Vial Sliding Scale - SQ 2 units ACHS LIDIA Administration Protocol Multivitamins/Minerals/Vitamin C 1 tab 09/11/17 11:30 09/12/17 10:17 Tab-A-Vit - PO 1 tab DAILY LIDIA Administration Nifedipine 60 mg 09/11/17 13:15 09/12/17 10:18 Procardia Xl - PO 60 mg DAILY L[facility]IA Administration Raltegravir 400 mg 09/12/17 10:00 09/12/17 10:18 Isentress - PO 400 mg BID LIDIA Administration Ranitidine HCl 150 mg 09/11/17 11:30 09/12/17 10:17 Zantac - PO 150 mg DAILY LIDIA Administration Ritonavir 100 mg 09/12/17 10:00 09/12/17 10:18 Norvir - PO 100 mg BID LIDIA Administration Sodium Bicarbonate 650 mg 09/12/17 09:15 09/12/17 10:17 Sodium Bicarbonate - PO 650 mg TID LIDIA Administration Tamsulosin HCl 0.4 mg 09/11/17 22:00 09/12/17 10:17 Flomax - PO 0.4 mg BID LIDIA Administration Impression 1. RICHY 2. 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 HIV 4. liver cirrhosis 5. Hep C 6. nephrolothiasis 7. DM 8. BPH 9. HTN 10. CLL Plan - renal workup in progress - cont with saline - repeat labs in am - monitor urine output - keep arb and diuretic on hold Dr Wlels
--- NOTE | 2017-09-12 14:32 | PN ---
Progress Note (short form) - Note Progress Note: frequent bms requesting colace be stopped no abdominal pain no fevers Vital Signs Period Temp Pulse Resp BP Sys/Ventura Pulse Ox Last 24 Hr 97.8 F-98.4 F 64-74 14-20 111-136/53-66 96-96 cor-rrr lungs clear abd soft,nt, protuberant ext no edema ortiz with clear urine CBC, BMP 09/12/17 05:30 09/12/17 05:30 Microbiology 09/11/17 05:45 Urine - Urine - Catheterized Urine Culture - Final NO GROWTH OBTAINED 09/11/17 07:48 Blood - Peripheral Venous Blood Culture - Preliminary NO GROWTH OBTAINED AFTER 24 HOURS, INCUBATION TO CONTINUE FOR 4 DAYS. 09/11/17 08:05 Blood - Peripheral Venous Blood Culture - Preliminary NO GROWTH OBTAINED AFTER 24 HOURS, INCUBATION TO CONTINUE FOR 4 DAYS. a/p Acute renal failure ?diverticulitis CLL HIV- stable hep c treated continue ivf rocephin/flagyl to cover possible colitis/diverticulitis f/u cultures if ct scan does not show diverticulitis, can d/c antibioticss HAART resumed
--- NOTE | 2017-09-12 14:37 | PN ---
Teaching Attending Note Name of Resident: Irma Landa ATTENDING PHYSICIAN STATEMENT I saw and evaluated the patient. I reviewed the resident's note and discussed the case with the resident. I agree with the resident's findings and plan as documented with exceptions below. SUBJECTIVE: Patient seen and examined. Feels better, urinating. No new fevers, chills, nausea, vomiting, abdominal pain or diarrhea. No dyspnea or dizziness noted. OBJECTIVE: Vital Signs Period Temp Pulse Resp BP Sys/[place] Pulse Ox Last 24 Hr 97.8 F-98.4 F 64-74 14-20 111-136/53-66 96-96 Intake & Output 09/09/17 09/10/17 09/11/17 09/12/17 23:59 23:59 23:59 23:59 Intake Total 220 Output Total 900 650 Balance -680 -650 Weight 181 lb 180 lb 3.2 oz General: sitting in bed in no acute distress Chest: CTAB, no rales or wheezing Abdomen:Soft, distended, unchanged from yesterday, NT throughout, positive bowel sounds, no CVA tenderness Extremities: 1+ pitting pedal edema Home Medications Medication Instructions Recorded RX: Ritonavir [Norvir] 100 mg PO BID #0 tablet 01/07/13 Allopurinol [Zyloprim -] 100 mg PO DAILY 09/01/15 Carvedilol [Coreg -] 3.125 mg PO BID 09/01/15 Furosemide [Lasix -] 80 mg PO DAILY 09/01/15 Lidocaine 5% Patch [Lidoderm Patch 1 patch TP DAILY 09/01/15 -] Multivitamins [Tab-A-Vit -] 1 tab PO DAILY 09/01/15 Nifedipine [Nifedical Xl] 60 mg PO DAILY 09/01/15 RX: Glipizide 5 mg PO BID 09/01/15 Raltegravir [Isentress -] 400 mg PO BID 09/01/15 Ranitidine HCl [Zantac] 150 mg PO DAILY 09/01/15 Rilpivirine HCl [Edurant] 25 mg PO DAILY 09/01/15 Darunavir Ethanolate [Prezista -] 600 mg PO BID 07/09/16 RX: Metolazone 2.5 mg PO Q2D 09/11/17 Active Medications Carvedilol (Coreg -) 3.125 mg PO BID [facility] Last Admin: 09/12/17 10:17 Dose: 3.125 mg Darunavir (Prezista -) 600 mg PO BID [facility] Last Admin: 09/12/17 10:18 Dose: 600 mg Heparin Sodium (Porcine) (Heparin -) 5,000 unit SQ TID [facility] Last Admin: 09/12/17 06:49 Dose: 5,000 unit Metronidazole (Flagyl 500mg Premixed Ivpb -) 500 mg in 100 mls @ 100 mls/hr IVPB Q8H-IV [facility] Last Admin: 09/12/17 10:17 Dose: 100 mls/hr Ceftriaxone Sodium 2 gm/ (Dextrose) 100 mls @ 200 mls/hr IVPB DAILY [facility]; Protocol Last Admin: 09/12/17 10:16 Dose: 200 mls/hr Sodium Chloride (Normal Saline -) 1,000 mls @ 65 mls/hr IV ASDIR [facility] Stop: 09/12/17 23:59 Last Admin: 09/12/17 09:19 Dose: 65 mls/hr Insulin Aspart (Novolog Vial Sliding Scale -) 1 vial SQ ACHS [facility]; Protocol Last Admin: 09/12/17 12:12 Dose: 4 units Multivitamins/Minerals/Vitamin C (Tab-A-Vit -) 1 tab PO DAILY [facility] Last Admin: 09/12/17 10:17 Dose: 1 tab Nifedipine (Procardia Xl -) 60 mg PO DAILY [facility] Last Admin: 09/12/17 10:18 Dose: 60 mg Raltegravir (Isentress -) 400 mg PO BID [facility] Last Admin: 09/12/17 10:18 Dose: 400 mg Ranitidine HCl (Zantac -) 150 mg PO DAILY [facility] Last Admin: 09/12/17 10:17 Dose: 150 mg Ritonavir (Norvir -) 100 mg PO BID [facility] Last Admin: 09/12/17 10:18 Dose: 100 mg Sodium Bicarbonate (Sodium Bicarbonate -) 650 mg PO TID [facility] Last Admin: 09/12/17 10:17 Dose: 650 mg Tamsulosin HCl (Flomax -) 0.4 mg PO BID [facility] Last Admin: 09/12/17 10:17 Dose: 0.4 mg Laboratory Results - last 24 hr 09/11/17 09/11/17 09/11/17 17:29 18:30 18:30 WBC RBC Hgb Hct MCV MCH MCHC RDW Plt Count MPV Absolute Neuts (auto) Neutrophils % Neutrophils % (Manual) Band Neutrophils % Lymphocytes % Lymphocytes % (Manual) Monocytes % Monocytes % (Manual) Eosinophils % Eosinophils % (Manual) Basophils % Basophils % (Manual) Myelocytes % (Man) Promyelocytes % (Man) Blast Cells % (Manual) Nucleated RBC % Metamyelocytes Hypochromia Platelet Estimate Polychromasia Poikilocytosis Anisocytosis Microcytosis Macrocytosis [place] Cells Sodium Potassium Chloride Carbon Dioxide Anion Gap BUN Creatinine Creat Clearance w eGFR POC Glucometer 173 Random Glucose Uric Acid Calcium Phosphorus Magnesium Total Bilirubin AST ALT Alkaline Phosphatase LD Total Total Protein Albumin U Random Total Protein 209 H Ur Random Urea Nitrogn 498 Urine Creatinine 117.0 Protein/Creatinin Ratio 1.79 09/11/17 09/12/17 09/12/17 22:22 05:30 05:30 WBC 41.4 H* RBC 2.85 L Hgb 8.4 L Hct 25.7 L MCV 90.3 MCH 29.3 MCHC 32.5 RDW 15.8 Plt Count 86 L MPV 8.2 Absolute Neuts (auto) 0.6 Neutrophils % 1.4 L Neutrophils % (Manual) 4.1 L Band Neutrophils % 0.0 Lymphocytes % 98.2 H Lymphocytes % (Manual) 95.9 H* Monocytes % 0.4 L Monocytes % (Manual) 0 L D Eosinophils % 0.0 Eosinophils % (Manual) 0.0 Basophils % 0.0 Basophils % (Manual) 0.0 Myelocytes % (Man) 0 Promyelocytes % (Man) 0 Blast Cells % (Manual) 0 Nucleated RBC % 0 Metamyelocytes 0 Hypochromia 1+ Platelet Estimate Decreased Polychromasia 1+ Poikilocytosis 1+ Anisocytosis 1+ Microcytosis 0 Macrocytosis 0 [place] Cells 1+ Sodium 138 Potassium 4.9 Chloride 107 Carbon Dioxide 15 L Anion Gap 16 BUN 136 H* Creatinine 7.0 H Creat Clearance w eGFR 7.96 POC Glucometer 145 Random Glucose 133 H Uric Acid 14.1 H* Calcium 7.5 L Phosphorus 8.5 H D Magnesium 3.0 H D Total Bilirubin 0.2 AST 9 L D ALT 16 Alkaline Phosphatase 60 LD Total 156 D Total Protein 5.8 L Albumin 3.3 L U Random Total Protein Ur Random Urea Nitrogn Urine Creatinine Protein/Creatinin Ratio 09/12/17 09/12/17 05:34 12:03 WBC RBC Hgb Hct MCV MCH MCHC RDW Plt Count MPV Absolute Neuts (auto) Neutrophils % Neutrophils % (Manual) Band Neutrophils % Lymphocytes % Lymphocytes % (Manual) Monocytes % Monocytes % (Manual) Eosinophils % Eosinophils % (Manual) Basophils % Basophils % (Manual) Myelocytes % (Man) Promyelocytes % (Man) Blast Cells % (Manual) Nucleated RBC % Metamyelocytes Hypochromia Platelet Estimate Polychromasia Poikilocytosis Anisocytosis Microcytosis Macrocytosis [place] Cells Sodium Potassium Chloride Carbon Dioxide Anion Gap BUN Creatinine Creat Clearance w eGFR POC Glucometer 166 210 Random Glucose Uric Acid Calcium Phosphorus Magnesium Total Bilirubin AST ALT Alkaline Phosphatase LD Total Total Protein Albumin U Random Total Protein Ur Random Urea Nitrogn Urine Creatinine Protein/Creatinin Ratio Microbiology 09/11/17 05:45 Urine - Urine - Catheterized Urine Culture - Final NO GROWTH OBTAINED 09/11/17 07:48 Blood - Peripheral Venous Blood Culture - Preliminary NO GROWTH OBTAINED AFTER 24 HOURS, INCUBATION TO CONTINUE FOR 4 DAYS. 09/11/17 08:05 Blood - Peripheral Venous Blood Culture - Preliminary NO GROWTH OBTAINED AFTER 24 HOURS, INCUBATION TO CONTINUE FOR 4 DAYS. ASSESSMENT AND PLAN: 66 yom with extensive PMHx as above admitted with RICHY, hyperkalemia and urinary symptoms. 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 Non oliguric. Renal input appreciated. Gentle hydration, strict I/Os, hold lasix/ARB/metolazone. Renal dosing of medications. 2D echo noted. Discrepant reading on CT, unclear if diverticulitis, discussed with Dr. Abdo, will follow up. Renal/bladder Ultrasound noted. ID input appreciated. HAART per ID. Ceftriaxone/flagyl day 2, further plan per CT A/P read and ID recs. Neutropenic precautions. Oncology input appreciated. GI consult given cirrhosis/hepatosplenomegaly Continue coreg and nifedipine as BP tolerated. DVTPPX with heparin. Plan discussed in detail with patient and all questions answered. Patient relays understanding and in agreement. Care co-ordinated with nephrology, ID and oncology and radiology.
--- NOTE | 2017-09-12 15:14 | CON.GI ---
Consult Consult Specialty:: GI Reason for Consultation:: Liver cirrhosis, ?hepatorenal syndrome - History of Present Illness History of Present Illness: Chart reviewed. ED records, H&P, consults and prior admissions reviewed. Diagnosed with liver cirrhosis many years ago. HCV successfully eradicated 1 y ago with [facility]. Followed by [facility]. Has appointment with them next week. No history of tens ascites, parasetesis, or acute on chronic liver failure. Doesn't recall being on aldactone or spirolactone in the past. Recalls taking lactulose before. Unclear if up to date on esophageal varices colon cancer screening. The pt reports poor appetite, early satiety and chronic, non- intentional tremors. Has history of increased forgetfulness, but no disorientation, or confusion. Denies dysphagia, odynophagia, fluctuating abdominal girth, jaundice, fever, excessive bleeding, or bruising. No melena, hematochezia, hematemesis. Denies use of alcohol and chronic NSAIDs. - History Source History Provided By: Patient, Medical Record - Past Medical History Cardio/Vascular: Yes: HTN Hepatobiliary: Yes: Cirrhosis, Hepatitis C Renal/: Yes: Renal Inusuff, Other (hesitancy, intermittemncy, poor stream) Infectious Disease: Yes: HIV Endocrine: Yes: Diabetes Mellitus Additional Medical History: lymphocytic leuckemia - Past Surgical History Past Surgical History: Yes: None - Alcohol/Substance Use Hx Alcohol Use: No History of Substance Use: reports: Cocaine (quit x 25 yrs), Heroin - Smoking History Smoking history: Former smoker Have you smoked in the past 12 months: No Aproximately how many cigarettes per day: 0 If you are a former smoker, when did you quit?: > 25 yrs ago - Social History Usual Living Arrangement: Alone ADL: Independent History of Recent Travel: No Home Medications - Allergies Allergies/Adverse Reactions: Allergies Allergy/AdvReac Type Severity Reaction Status Date / Time No Known Allergies Allergy Verified 09/11/17 06:54 - Home Medications Home Medications: Ambulatory Orders Ritonavir [Norvir] 100 mg PO BID #0 tablet 01/07/13 Allopurinol [Zyloprim -] 100 mg PO DAILY 09/01/15 Carvedilol [Coreg -] 3.125 mg PO BID 09/01/15 Furosemide [Lasix -] 80 mg PO DAILY 09/01/15 Glipizide 5 mg PO BID 09/01/15 Lidocaine 5% Patch [Lidoderm Patch -] 1 patch TP DAILY 09/01/15 Multivitamins [Tab-A-Vit -] 1 tab PO DAILY 09/01/15 Nifedipine [Nifedical Xl] 60 mg PO DAILY 09/01/15 Raltegravir [Isentress -] 400 mg PO BID 09/01/15 Ranitidine HCl [Zantac] 150 mg PO DAILY 09/01/15 Rilpivirine HCl [Edurant] 25 mg PO DAILY 09/01/15 Darunavir Ethanolate [Prezista -] 600 mg PO BID 07/09/16 Metolazone 2.5 mg PO Q2D 09/11/17 Family Disease History - Family Disease History Family Disease History: Heart Disease: Father ( of [place] at 55, ETOH), Other: Father, Mother (hypertension), Sister (hypertension) Review of Systems Findings/Remarks: as per HPI, ED, and H&P Physical Exam-GI Vital Signs: Vital Signs Temperature 98.5 F 09/12/17 14:42 Pulse Rate 76 09/12/17 14:42 Respiratory Rate 18 09/12/17 14:42 Blood Pressure 124/53 09/12/17 14:42 O2 Sat by Pulse Oximetry (%) 96 09/12/17 09:00 Constitutional: Yes: Well Nourished, No Distress, Calm Eyes: Yes: Conjunctiva Clear. No: Sclera Icterus HENT: Yes: Atraumatic Neck: Yes: Supple Cardiovascular: Yes: Regular Rate and Rhythm Respiratory: Yes: Regular Gastrointestinal Inspection: No: Distention ...Auscultate: Yes: Normoactive Bowel Sounds ...Palpate: Yes: Soft. No: Firm/Rigid, Guarding, Mass, Tenderness, Tenderness, Epigastium, Tenderness, Rebound ...Percussion: No: Fluid Wave Edema: No Neurological: Yes: Alert, Oriented, Tremors. No: Asterixis, Confusion, Lethargy Labs: CBC, BMP 09/12/17 05:30 09/12/17 05:30 INR, PTT INR 1.12 (0.83-1.09) 09/11/17 08:05 Laboratory Last Values WBC 41.4 K/mm3 (4.0-10.0) H* 09/12/17 05:30 RBC 2.85 M/mm3 (4.00-5.60) L 09/12/17 05:30 Hgb 8.4 GM/dL (11.7-16.9) L 09/12/17 05:30 Hct 25.7 % (35.4-49) L 09/12/17 05:30 MCV 90.3 fl (80-96) 09/12/17 05:30 MCH 29.3 pg (25.7-33.7) 09/12/17 05:30 MCHC 32.5 g/dl (32.0-35.9) 09/12/17 05:30 RDW 15.8 % (11.9-15.9) 09/12/17 05:30 Plt Count 86 K/MM3 (134-434) L 09/12/17 05:30 MPV 8.2 fl (7.5-11.1) 09/12/17 05:30 Absolute Neuts (auto) 0.6 # 09/12/17 05:30 Total Counted 100 09/11/17 06:38 Neutrophils % 1.4 % (42.8-82.8) L 09/12/17 05:30 Neutrophils % (Manual) 4.1 % (42.8-82.8) L 09/12/17 05:30 Band Neutrophils % 0.0 % 09/12/17 05:30 Lymphocytes % 98.2 % (8-40) H 09/12/17 05:30 Lymphocytes % (Manual) 95.9 % (8-40) H* 09/12/17 05:30 Monocytes % 0.4 % (3.8-10.2) L 09/12/17 05:30 Monocytes % (Manual) 0 % (3.8-10.2) L D 09/12/17 05:30 Eosinophils % 0.0 % (0-4.5) 09/12/17 05:30 Eosinophils % (Manual) 0.0 % (0-4.5) 09/12/17 05:30 Basophils % 0.0 % (0-2.0) 09/12/17 05:30 Basophils % (Manual) 0.0 % (0-2.0) 09/12/17 05:30 Myelocytes % (Man) 0 % (0-2) 09/12/17 05:30 Promyelocytes % (Man) 0 % (0-2) 09/12/17 05:30 Blast Cells % (Manual) 0 % (0-0) 09/12/17 05:30 Nucleated RBC % 0 % (0-0) 09/12/17 05:30 Metamyelocytes 0 % (0-2) 09/12/17 05:30 Hypochromia 1+ 09/12/17 05:30 Platelet Estimate Decreased 09/12/17 05:30 Polychromasia 1+ 09/12/17 05:30 Poikilocytosis 1+ 09/12/17 05:30 Anisocytosis 1+ 09/12/17 05:30 Microcytosis 0 09/12/17 05:30 Macrocytosis 0 09/12/17 05:30 [place] Cells 1+ 09/12/17 05:30 PT with INR 12.60 SEC (9.7-13.0) 09/11/17 08:05 INR 1.12 (0.83-1.09) 09/11/17 08:05 PTT (Actin FS) 23.3 SECONDS (25.2-36.5) 09/11/17 08:05 VBG pH 7.32 (7.32-7.42) 09/11/17 08:05 POC VBG pCO2 28.0 mmHg (38-52) L 09/11/17 08:05 POC VBG pO2 59.4 mmHg (28-48) H 09/11/17 08:05 Mixed VBG HCO3 13.8 meq/L (19-25) L* 09/11/17 08:05 Sodium 138 mmol/L (136-145) 09/12/17 05:30 Potassium 4.9 mmol/L (3.5-5.1) 09/12/17 05:30 Plasma Potassium 4.6 mmol/L (3.5-5.1) 09/11/17 11:05 Chloride 107 mmol/L (98-107) 09/12/17 05:30 Carbon Dioxide 15 mmol/L (21-32) L 09/12/17 05:30 Anion Gap 16 (8-16) 09/12/17 05:30 BUN 136 mg/dL (7-18) H* 09/12/17 05:30 Creatinine 7.0 mg/dL (0.7-1.3) H 09/12/17 05:30 Creat Clearance w eGFR 7.96 (>60) 09/12/17 05:30 POC Glucometer 210 UNITS (80-120) 09/12/17 12:03 Random Glucose 133 mg/dL (74-106) H 09/12/17 05:30 Lactic Acid 0.9 mmol/L (0.0-2.0) 09/11/17 11:05 Uric Acid 14.1 mg/dL (2.6-7.2) H* 09/12/17 05:30 Calcium 7.5 mg/dL (8.5-10.1) L 09/12/17 05:30 Phosphorus 8.5 mg/dL (2.5-4.9) H D 09/12/17 05:30 Magnesium 3.0 mg/dL (1.8-2.4) H D 09/12/17 05:30 Total Bilirubin 0.2 mg/dL (0.2-1.0) 09/12/17 05:30 AST 9 U/L (15-37) L D 09/12/17 05:30 ALT 16 U/L (12-78) 09/12/17 05:30 Alkaline Phosphatase 60 U/L (45-117) 09/12/17 05:30 LD Total 156 U/L (87-241) D 09/12/17 05:30 Troponin I < 0.02 ng/ml (0.00-0.05) 09/11/17 08:05 Total Protein 5.8 g/dl (6.4-8.2) L 09/12/17 05:30 Albumin 3.3 g/dl (3.4-5.0) L 09/12/17 05:30 Lipase 276 U/L (73-393) 09/11/17 06:38 TSH Cancelled 09/11/17 08:05 Urine Color Yellow 09/11/17 05:45 Urine Appearance Cloudy 09/11/17 05:45 Urine pH 5.0 (5.0-8.0) 09/11/17 05:45 Ur Specific [place] 1.011 (1.001-1.035) 09/11/17 05:45 Urine Protein 3+ (NEGATIVE) H 09/11/17 05:45 Urine Glucose (UA) 1+ (NEGATIVE) H 09/11/17 05:45 Urine Ketones Negative (NEGATIVE) 09/11/17 05:45 Urine Blood Negative (NEGATIVE) 09/11/17 05:45 Urine Nitrite Negative (NEGATIVE) 09/11/17 05:45 Urine Bilirubin Negative (<2.0 mg/dL) 09/11/17 05:45 Urine Urobilinogen Negative mg/dL (0.2-1.0) 09/11/17 05:45 Ur Leukocyte Esterase Negative (NEGATIVE) 09/11/17 05:45 Urine WBC (Auto) 4 /hpf (3-5) 09/11/17 05:45 Urine RBC (Auto) 1 /hpf (0-3) 09/11/17 05:45 Urine Bacteria Rare /hpf (NONE SEEN) 09/11/17 05:45 Urine Mucus Rare 09/11/17 05:45 U Random Total Protein 209 mg/dl (5-11.9) H 09/11/17 18:30 Ur Random Sodium 27 MMOL/L 09/11/17 11:50 Ur Random Potassium 40.1 MMOL/L 09/11/17 11:50 Ur Random Chloride 18 MMOL/L 09/11/17 11:50 Ur Random Urea Nitrogn 498 mg/dL 09/11/17 18:30 Urine Creatinine 117.0 mg/dL (20-370) 09/11/17 18:30 Protein/Creatinin Ratio 1.79 MG/DL 09/11/17 18:30 Imaging - Results Cat Scan: Report Reviewed (2013) Problem List - Problems (1) HIV 2 (human immunodeficiency virus type 2) Code(s): B97.35 - HIV 2 THE CAUSE OF DISEASES CLASSIFIED ELSEWHERE (2) CLL (chronic lymphocytic leukemia) Code(s): C91.90 - LYMPHOID LEUKEMIA, UNSPECIFIED NOT HAVING ACHIEVED REMISSION (3) Chronic kidney disease Code(s): N18.9 - CHRONIC KIDNEY DISEASE, UNSPECIFIED (4) Acute kidney failure Code(s): N17.9 - ACUTE KIDNEY FAILURE, UNSPECIFIED (5) Liver cirrhosis Code(s): K74.60 - UNSPECIFIED CIRRHOSIS OF LIVER Assessment/Plan A 66M with the above acute and chronic medical issues has known liver cirrhosis , which appears to be compensated with nearly normal liver chemistry, bilirubin , PT, albumin. Unclear if ascites is present, as physical exam is not conclusive and the CT not reporting it. The end stage liver disease is likely contributing the the chronic renal disease picture, however, I doubt the acute renal deterioration (the reason for this admission) is primarily due to hepatorenal syndrome. Acute on chronic renal insufficiency management as per nephrology. Obtain abdominal US to evaluate for presents of ascites. Dietary salt intake should be limited to 2 gm/day if has ascites. Esophageal varices surveillance and screening colonoscopy are due now. The pt should receive encephalopathy prophylaxis with either lactulose, and/or rifaximine. If possible, have the pt keep his appointment at [facility] next week. The above was discussed with the pt in detail and he verbalized understanding.
[2017-09-12] MEDS ORDERED: POLYETHYLENE GLYCOL 3350 119 GM BTL PO PRN (15:33)
[2017-09-12] MEDS ORDERED: PT OWN MED DRAWER 7, Y5N ONE (22:04)
[2017-09-12] MEDS: DOCUSATE SODIUM 100 MG CAPSULE (FP) PO SCH (22:12)
--- NOTE | 2017-09-12 22:44 | PN ---
Physical Exam: SUBJECTIVE: Patient seen and examined this morning. Slept on and off but feels much better since admission. 1 BM in the ED. No acute overnight events as per nursing. Denies fevers, chills, chest pain, SOB, Nausea, vomiting. OBJECTIVE: Vital Signs Period Temp Pulse Resp BP Sys/Ventura Pulse Ox Last 24 Hr 98.2 F-98.5 F 66-76 14-20 123-136/51-66 96 GENERAL: The patient is awake, alert, and fully oriented, in no acute distress. THROAT: Oropharynx clear without exudates, moist mucous membranes. LUNGS: Breath sounds equal, clear to auscultation bilaterally, no wheezes, no crackles, no accessory muscle use. HEART: Regular rate and rhythm, S1, S2 without murmur, rub or gallop. ABDOMEN: Soft, nontender, distended, normoactive bowel sounds, No Dullness to percussion, No guarding, No rebound : Lara catheter draining clear yellow liquid EXTREMITIES: 2+ pulses, 1+ pitting edema. Laboratory Results - last 24 hr 09/12/17 09/12/17 09/12/17 05:30 05:30 05:34 WBC 41.4 H* RBC 2.85 L Hgb 8.4 L Hct 25.7 L MCV 90.3 MCH 29.3 MCHC 32.5 RDW 15.8 Plt Count 86 L MPV 8.2 Absolute Neuts (auto) 0.6 Neutrophils % 1.4 L Neutrophils % (Manual) 4.1 L Band Neutrophils % 0.0 Lymphocytes % 98.2 H Lymphocytes % (Manual) 95.9 H* Monocytes % 0.4 L Monocytes % (Manual) 0 L D Eosinophils % 0.0 Eosinophils % (Manual) 0.0 Basophils % 0.0 Basophils % (Manual) 0.0 Myelocytes % (Man) 0 Promyelocytes % (Man) 0 Blast Cells % (Manual) 0 Nucleated RBC % 0 Metamyelocytes 0 Hypochromia 1+ Platelet Estimate Decreased Polychromasia 1+ Poikilocytosis 1+ Anisocytosis 1+ Microcytosis 0 Macrocytosis 0 [place] Cells 1+ Sodium 138 Potassium 4.9 Chloride 107 Carbon Dioxide 15 L Anion Gap 16 BUN 136 H* Creatinine 7.0 H Creat Clearance w eGFR 7.96 POC Glucometer 166 Random Glucose 133 H Uric Acid 14.1 H* Calcium 7.5 L Phosphorus 8.5 H D Magnesium 3.0 H D Total Bilirubin 0.2 AST 9 L D ALT 16 Alkaline Phosphatase 60 LD Total 156 D Total Protein 5.8 L Albumin 3.3 L 09/12/17 09/12/17 09/12/17 12:03 17:48 22:02 WBC RBC Hgb Hct MCV MCH MCHC RDW Plt Count MPV Absolute Neuts (auto) Neutrophils % Neutrophils % (Manual) Band Neutrophils % Lymphocytes % Lymphocytes % (Manual) Monocytes % Monocytes % (Manual) Eosinophils % Eosinophils % (Manual) Basophils % Basophils % (Manual) Myelocytes % (Man) Promyelocytes % (Man) Blast Cells % (Manual) Nucleated RBC % Metamyelocytes Hypochromia Platelet Estimate Polychromasia Poikilocytosis Anisocytosis Microcytosis Macrocytosis [place] Cells Sodium Potassium Chloride Carbon Dioxide Anion Gap BUN Creatinine Creat Clearance w eGFR POC Glucometer 210 175 154 Random Glucose Uric Acid Calcium Phosphorus Magnesium Total Bilirubin AST ALT Alkaline Phosphatase LD Total Total Protein Albumin Microbiology 09/11/17 05:45 Urine - Urine - Catheterized Urine Culture - Final NO GROWTH OBTAINED 09/11/17 07:48 Blood - Peripheral Venous Blood Culture - Preliminary NO GROWTH OBTAINED AFTER 24 HOURS, INCUBATION TO CONTINUE FOR 4 DAYS. 09/11/17 08:05 Blood - Peripheral Venous Blood Culture - Preliminary NO GROWTH OBTAINED AFTER 24 HOURS, INCUBATION TO CONTINUE FOR 4 DAYS. Active Medications Carvedilol (Coreg -) 3.125 mg PO BID [facility] Last Admin: 09/12/17 22:08 Dose: 3.125 mg Darunavir (Prezista -) 600 mg PO BID [facility] Last Admin: 09/12/17 22:08 Dose: 600 mg Docusate Sodium (Colace -) 100 mg PO BID [facility] Last Admin: 09/12/17 22:12 Dose: Not Given Heparin Sodium (Porcine) (Heparin -) 5,000 unit SQ TID [facility] Last Admin: 09/12/17 22:08 Dose: 5,000 unit Metronidazole (Flagyl 500mg Premixed Ivpb -) 500 mg in 100 mls @ 100 mls/hr IVPB Q8H-IV [facility] Last Admin: 09/13/17 01:18 Dose: 100 mls/hr Ceftriaxone Sodium 2 gm/ (Dextrose) 100 mls @ 200 mls/hr IVPB DAILY [facility]; Protocol Last Admin: 09/12/17 10:16 Dose: 200 mls/hr Insulin Aspart (Novolog Vial Sliding Scale -) 1 vial SQ ACHS [facility]; Protocol Last Admin: 09/12/17 22:09 Dose: 1 vial Multivitamins/Minerals/Vitamin C (Tab-A-Vit -) 1 tab PO DAILY [facility] Last Admin: 09/12/17 10:17 Dose: 1 tab Nifedipine (Procardia Xl -) 60 mg PO DAILY [facility] Last Admin: 09/12/17 10:18 Dose: 60 mg Polyethylene Glycol (Miralax (For Daily Use) -) 17 gm PO Q24H PRN PRN Reason: CONSTIPATION Raltegravir (Isentress -) 400 mg PO BID [facility] Last Admin: 09/12/17 22:09 Dose: 400 mg Ranitidine HCl (Zantac -) 150 mg PO DAILY [facility] Last Admin: 09/12/17 10:17 Dose: 150 mg Ritonavir (Norvir -) 100 mg PO BID [facility] Last Admin: 09/12/17 22:08 Dose: 100 mg Sodium Bicarbonate (Sodium Bicarbonate -) 650 mg PO TID [facility] Last Admin: 09/12/17 22:07 Dose: 650 mg Tamsulosin HCl (Flomax -) 0.4 mg PO BID [facility] Last Admin: 09/12/17 22:08 Dose: 0.4 mg IMAGING: - CXR: Left axillary clips. Chronic changes left base. No acute chest pathology. - Bladder US: A Lara catheter is seen in place. At the time of examination the urinary bladder volume is approximately 84 mL. The urinary bladder demonstrates no gross mass lesion or calculus. There is no free intraperitoneal fluid within the lower pelvis. Mild prostate enlargement. - Kidney/Renal US: Prominent renal central sinus echoes, bilaterally suggestive of renal sinus lipomatosis. Small bilateral renal cysts with the largest cyst in the left kidney, anteriorly measuring 1.7 cm demonstrating a thin septation consistent with a complex cyst. Significant splenomegaly. - CT Abdomen Pelvis: Small right kidney relative to the left with small bilateral renal cysts. Nonobstructing left renal stone measuring 7 mm. There is stranding of the left perinephric fat with a small amount of fluid. Mild dilatation of the left renal pelvis. However, there is no gross evidence of hydroureter or obstructing ureteral stone, bilaterally. Hepatosplenomegaly with slightly lobulated hepatic contour suggestive of cirrhosis and questionable varicosis veins for which correlation with contrast-enhanced CT scan would be helpful. 1 cm faint ill-defined subcapsular hyperdensities seen along inferior margin of the spleen, laterally which is nonspecific. It may represent a hemangioma. A small subcapsular hematoma could not be excluded. Multiple mesenteric and retroperitoneal enlarged lymph nodes measuring up to 2.2 cm for which further evaluation is recommended. 2.8 cm right adrenal low-attenuation nodule that may represent an adrenal adenoma. Likely accessory spleen measuring 2.2 cm. Diverticulosis coli without diverticulitis at the junction of the distal descending and proximal sigmoid colon. No extraluminal air or abscess/ drainable collection is identified. There is a typographical error in the last sentence of the impression that should read; Diverticulosis coli with suggestion of mild colitis/ diverticulitis at the junction of the distal descending and proximal sigmoid colon. No extraluminal air or abscess/drainable collection is identified. - Duplex 2 Legs: No DVT is identified involving either leg. - ECHO: LV Systolic function is normal, RV systolic function is normal, Mild Mitral annular calcification, Mild MR, Mild TR, Mild , Trace pulmonic valvular regurgitation, moderately dilated IVC, No pericardial effusion - EKG: NSR ASSESSMENT/PLAN: 66 y/o M with PMH CLL, HIV, BPH, CKD (baseline Cr 2), NIDDM, Cirrhosis, hx of IVDA who presented to ED with complaint of incomplete urinary voiding and lower abdominal fullness since Thrus associated with decreased sleep, and night sweats. Exam significant for heart murmur, lung crackles, abdominal distension, pedal edema. Labs sig for leukocytosis, uremia, thrombocytopenia, proteinuria. Pt admitted for RICHY on CKD. 1. RICHY on CKD stage 4 - Baseline BUN/Cr of 45/2.6; 130/7 on admission - UA: 3+ proteinuria - CT A/P: Nonobstructing left renal stone measuring 7 mm. Mild dilatation of the left renal pelvis. However, there is no gross evidence of hydroureter or obstructing ureteral stone, bilaterally. - Likely multifactorial due to decreased PO intake and increased lasix, metalazone and losartan with component of urinary retention - Lara placed in ED, Currently draining clear yellow urine - Monitor urine output, Strict I/Os - Nephrology (Dr. Wells) consulted, appreciate rec's, will hold Lasix and Arb , renal workup pending - Kidney/Renal US and Bladder US Noted above 2. Divirticulitis - CT A/P: Diverticulosis coli with suggestion of mild colitis/ diverticulitis at the junction of the distal descending and proximal sigmoid colon - Immunocompromised hx (HIV, CLL) however currently Asymptomatic - ID (Dr. Bustillos) consulted, appreciate rec's, will continue IVF, f/u cultures - Continue Flagyl 500mg Q8H-IV - Continue Ceftriaxone 2 gm IV DAILY 3. HIV - Continue home HAART as per ID - Consider renally dosing - Neutropenic percautions 4. CLL - Per [facility] records, patient is stable with WBC at 60. No interventions indicated unless symptomatic or WBC > 100 - Hepatosplenomegaly noted on CT - Thrombocytopenia of 86 - Hematology/oncology (Dr. Kimble) consulted, appreciate rec's, Will monitor hemogram and check immunoglobulins 5. Hx of Cirrhosis - CT A/P: Hepatosplenomegaly with slightly lobulated hepatic contour suggestive of cirrhosis and questionable varicosis veins - AST 9, ALT 16, Alkaline Phosphatase 60 - GI Consulted, will follow rec's 6. HTN - BP: 123-136/51-66 - Hold Lasix and Arb as per Renal - Continue home dose Carvedilol 3.125 mg PO BID - Continue home dose Nifedipine 60 mg PO DAILY 7. BPH - Lara placed in ED, Currently draining clear yellow urine - Continue Flomax 0.4 BID 8. NIDDM - Random Glucose 133 - Hold home dose glipizide - ISS & BGM ACHS 9. FEN - PO Fluids - Lytes wnl, replete as needed - Neutropenic diet 10. PPx - Heparin SQ TID Visit type - Emergency Visit Emergency Visit: Yes ED Registration Date: 09/11/17 Care time: The patient presented to the Emergency Department on the above date and was hospitalized for further evaluation of their emergent condition. - New Patient This patient is new to me today: Yes Date on this admission: 09/13/17 - Critical Care Critical Care patient: No
[2017-09-13 06:29] LABS: EOS % 0.1 % (0-4.5); HEMATOCRIT 24.4 % (35.4-49); MCH 29.5 pg (25.7-33.7); MCHC 32.7 g/dl (32.0-35.9); MEAN CELL VOLUME 90.2 fl (80-96); MEAN PLT VOLUME 8.5 fl (7.5-11.1); MONO % 0.4 % (3.8-10.2); NEUT % 1.5 % (42.8-82.8); PLATELET COUNT 85 K/MM3 (134-434); RBC 2.71 M/mm3 (4.00-5.60)
[2017-09-13] MEDS: SODIUM BICARBONATE 650 MG TABLET PO SCH ×3 (06:40→22:08)
[2017-09-13] MEDS: INSULIN SLIDING SCALE (NOVOLOG) 1 VIAL SQ SCH ×4 (06:40→22:17)
[2017-09-13] MEDS: HEPARIN NA (PORCINE) 5,000 UNITS/ML 1ML VIAL SQ SCH (06:40)
[2017-09-13 06:45] LABS: WHITE BLOOD COUNT 33.5 K/mm3 (4.0-10.0)
[2017-09-13 07:06] LABS: CHLORIDE 109 mmol/L (98-107); POTASSIUM 4.4 mmol/L (3.5-5.1); SODIUM 140 mmol/L (136-145)
[2017-09-13 07:14] LABS: ALBUMIN 3.2 g/dl (3.4-5.0); ALK PHOS 58 U/L (45-117); ANION GAP 15 (8-16); BILIRUBIN,TOTAL 0.2 mg/dL (0.2-1.0); CALCIUM 7.5 mg/dL (8.5-10.1); CO2 16 mmol/L (21-32); CREATININE 6.4 mg/dL (0.7-1.3); GLUCOSE,RANDOM 143 mg/dL (74-106); MAGNESIUM 3.2 mg/dL (1.8-2.4); SGOT/AST 10 U/L (15-37); SGPT/ALT 17 U/L (12-78); TOT PROT 5.7 g/dl (6.4-8.2)
--- NOTE | 2017-09-13 07:59 | PN ---
Teaching Attending Note Name of Resident: Irma Landa ATTENDING PHYSICIAN STATEMENT I saw and evaluated the patient. I reviewed the resident's note and discussed the case with the resident. I agree with the resident's findings and plan as documented with exceptions below. SUBJECTIVE: patient seen and examined. urinating well, no further urinary symptoms. no fevers, chills, dyspnea, abdominal pain, nausea, vomiting. Some dark stools overnight, unclear if new. no dizziness. some left thigh spasms. Hand tremors which states is old. OBJECTIVE: Vital Signs Period Temp Pulse Resp BP Sys/Ventura Pulse Ox Last 24 Hr 97.7 F-98.6 F 71-77 18-20 126-140/51-57 98-98 Intake & Output 09/10/17 09/11/17 09/12/17 09/13/17 23:59 23:59 23:59 23:59 Intake Total 220 190 Output Total 900 1650 1000 Balance -680 -1460 -1000 Weight 181 lb 180 lb 3.2 oz 182 lb 2 oz General: sitting in bed in no acute distress Chest: CTAB, no rales or wheezing Abdomen:Soft, distended, NT throughout Extremities: unchanged 1+ pedal pitting edema, fine tremors bilateral hands, no left thigh swelling/erythema or tenderness Active Medications Carvedilol (Coreg -) 3.125 mg PO BID [facility] Last Admin: 09/13/17 09:29 Dose: 3.125 mg Darunavir (Prezista -) 600 mg PO BID [facility] Last Admin: 09/13/17 09:32 Dose: 600 mg Docusate Sodium (Colace -) 100 mg PO BID [facility] Last Admin: 09/13/17 09:29 Dose: 100 mg Heparin Sodium (Porcine) (Heparin -) 5,000 unit SQ TID [facility] Last Admin: 09/13/17 06:40 Dose: 5,000 unit Metronidazole (Flagyl 500mg Premixed Ivpb -) 500 mg in 100 mls @ 100 mls/hr IVPB Q8H-IV [facility] Last Admin: 09/13/17 09:26 Dose: 100 mls/hr Ceftriaxone Sodium 2 gm/ (Dextrose) 100 mls @ 200 mls/hr IVPB DAILY [facility]; Protocol Last Admin: 09/13/17 09:27 Dose: 200 mls/hr Sodium Chloride (1/2 Normal Saline) 1,000 mls @ 83 mls/hr IV [facility] Insulin Aspart (Novolog Vial Sliding Scale -) 1 vial SQ ACHS [facility]; Protocol Last Admin: 09/13/17 11:38 Dose: Not Given Multivitamins/Minerals/Vitamin C (Tab-A-Vit -) 1 tab PO DAILY [facility] Last Admin: 09/13/17 09:28 Dose: 1 tab Nifedipine (Procardia Xl -) 60 mg PO DAILY [facility] Last Admin: 09/13/17 09:29 Dose: 60 mg Polyethylene Glycol (Miralax (For Daily Use) -) 17 gm PO Q24H PRN PRN Reason: CONSTIPATION Raltegravir (Isentress -) 400 mg PO BID [facility] Last Admin: 09/13/17 09:32 Dose: 400 mg Ranitidine HCl (Zantac -) 150 mg PO DAILY [facility] Last Admin: 09/13/17 09:29 Dose: 150 mg Ritonavir (Norvir -) 100 mg PO BID [facility] Last Admin: 09/13/17 09:32 Dose: 100 mg Sodium Bicarbonate (Sodium Bicarbonate -) 650 mg PO TID [facility] Last Admin: 09/13/17 13:53 Dose: 650 mg Tamsulosin HCl (Flomax -) 0.4 mg PO BID [facility] Last Admin: 09/13/17 09:29 Dose: 0.4 mg Laboratory Results - last 24 hr 09/12/17 09/12/17 09/12/17 05:30 05:30 05:30 WBC RBC Hgb Hct MCV MCH MCHC RDW Plt Count MPV Absolute Neuts (auto) Total Counted Neutrophils % Neutrophils % (Manual) Lymphocytes % Lymphocytes % (Manual) Monocytes % Monocytes % (Manual) Eosinophils % Basophils % Nucleated RBC % Platelet Estimate Sodium Potassium Chloride Carbon Dioxide Anion Gap BUN Creatinine Creat Clearance w eGFR POC Glucometer Random Glucose Calcium Phosphorus Magnesium Total Bilirubin AST ALT Alkaline Phosphatase Total Protein Albumin Stool Occult Blood IgG 449 L 450 L IgA 51 L Double Strand DNA Ab <1 09/12/17 09/12/17 09/13/17 17:48 22:02 03:01 WBC RBC Hgb Hct MCV MCH MCHC RDW Plt Count MPV Absolute Neuts (auto) Total Counted Neutrophils % Neutrophils % (Manual) Lymphocytes % Lymphocytes % (Manual) Monocytes % Monocytes % (Manual) Eosinophils % Basophils % Nucleated RBC % Platelet Estimate Sodium Potassium Chloride Carbon Dioxide Anion Gap BUN Creatinine Creat Clearance w eGFR POC Glucometer 175 154 Random Glucose Calcium Phosphorus Magnesium Total Bilirubin AST ALT Alkaline Phosphatase Total Protein Albumin Stool Occult Blood Positive IgG IgA Double Strand DNA Ab 09/13/17 09/13/17 09/13/17 05:30 05:30 06:39 WBC 33.5 H* RBC 2.71 L Hgb 8.0 L Hct 24.4 L MCV 90.2 MCH 29.5 MCHC 32.7 RDW 16.0 H Plt Count 85 L MPV 8.5 Absolute Neuts (auto) 0.5 Total Counted 100 Neutrophils % 1.5 L Neutrophils % (Manual) 1.0 L Lymphocytes % 98.0 H Lymphocytes % (Manual) 97.0 H* Monocytes % 0.4 L Monocytes % (Manual) 2 L D Eosinophils % 0.1 D Basophils % 0.0 Nucleated RBC % 0 Platelet Estimate Decreased Sodium 140 Potassium 4.4 Chloride 109 H Carbon Dioxide 16 L Anion Gap 15 BUN 135 H* Creatinine 6.4 H Creat Clearance w eGFR 8.83 POC Glucometer 190 Random Glucose 143 H Calcium 7.5 L Phosphorus 8.0 H Magnesium 3.2 H Total Bilirubin 0.2 AST 10 L ALT 17 Alkaline Phosphatase 58 Total Protein 5.7 L Albumin 3.2 L Stool Occult Blood IgG IgA Double Strand DNA Ab 09/13/17 11:32 WBC RBC Hgb Hct MCV MCH MCHC RDW Plt Count MPV Absolute Neuts (auto) Total Counted Neutrophils % Neutrophils % (Manual) Lymphocytes % Lymphocytes % (Manual) Monocytes % Monocytes % (Manual) Eosinophils % Basophils % Nucleated RBC % Platelet Estimate Sodium Potassium Chloride Carbon Dioxide Anion Gap BUN Creatinine Creat Clearance w eGFR POC Glucometer 156 Random Glucose Calcium Phosphorus Magnesium Total Bilirubin AST ALT Alkaline Phosphatase Total Protein Albumin Stool Occult Blood IgG IgA Double Strand DNA Ab Microbiology 09/11/17 07:48 Blood - Peripheral Venous Blood Culture - Preliminary NO GROWTH OBTAINED AFTER 48 HOURS, INCUBATION TO CONTINUE FOR 3 DAYS. 09/11/17 08:05 Blood - Peripheral Venous Blood Culture - Preliminary NO GROWTH OBTAINED AFTER 48 HOURS, INCUBATION TO CONTINUE FOR 3 DAYS. 09/11/17 05:45 Urine - Urine - Catheterized Urine Culture - Final NO GROWTH OBTAINED CT A/P updated results noted ASSESSMENT AND PLAN: 66 yom with extensive PMHx as above admitted with RICHY, hyperkalemia and urinary symptoms. -RICHY on CKD stage IV (baseline cr 2.2 in 06/2017), suspect multifactorial from poor oral intake, medications (self increase in lasix, resumption of metolazone , continuation of ARB) with urinary retention, hepatorenal syndrome on differential but low suspicion currently -Hyperkalemia from above -Mild Acute uncomplicated diverticulitis -Occult GIB. -Left perinephric stranding, clinically not consistent with pyelonephritis -HIV on HAART -CLL (recent WBC 50s) with lymphocytic predominance and absolute neutropenia -HIV On HAART -Treated HCV -Cirrhosis with portal hypertension -H/o IVDU (heroine/cocaine) -HTN -NIDDM -BPH -H/o NICM, last EF 65% in 2016 -Ex -smoker Plan: Renal function improved. Non oliguric. Renal input appreciated. Gentle hydration, strict I/Os, hold lasix/ARB/metolazone. Renal dosing of medications. 2D echo noted. Ceftriaxone/flagyl day 3, continue for now. Renal/bladder Ultrasound noted. ID input appreciated. HAART per ID. Neutropenic precautions. Oncology input appreciated. GI input noted. Patient dark stools with pos FOBT. Monitor h/h, no gross evidence of bleed or hemodynamic instability. Discussed with GI for additional w/u. Continue coreg and nifedipine as BP tolerated. DVTPPX with heparin. Plan discussed in detail with patient and all questions answered. Patient relays understanding and in agreement. .
[2017-09-13 08:05] LABS: BLOOD UREA NITROGEN 135 mg/dL (7-18)
[2017-09-13 08:06] LABS: IGA IMMUNOGLOBULIN 51 mg/dL (61-437)
[2017-09-13] MEDS ORDERED: PT OWN MED DRAWER 7, Y5N ONE (08:56)
[2017-09-13] MEDS ORDERED: DEXTROSE 5%-WATER 100 ML IVPB ONE (08:57)
[2017-09-13] MEDS: CEFTRIAXONE 2 GM in DEXTROSE 5%-WATER 100 ML IVPB SCH (09:27)
[2017-09-13] MEDS: MULTIVITAMINS (DAILY MVI) TABLET (FP) PO SCH (09:28)
[2017-09-13] MEDS: DOCUSATE SODIUM 100 MG CAPSULE (FP) PO SCH ×2 (09:29→22:13)
[2017-09-13] MEDS: CARVEDILOL 3.125 MG TABLET (FP) PO SCH ×2 (09:29→22:08)
[2017-09-13] MEDS: TAMSULOSIN HCL 0.4 MG CAP.ER.24H (FP) PO SCH ×2 (09:29→22:08)
[2017-09-13] MEDS: NIFEdipine E.R 60 MG TABLET (UD) PO SCH (09:29)
[2017-09-13] MEDS: RANITIDINE HCL 150 MG TABLET (FP) PO SCH (09:29)
[2017-09-13] MEDS: RILPIVIRINE HCL 25 MG TABLET PO SCH (09:30)
[2017-09-13] MEDS: DARUNAVIR ETHANOLATE 600 MG TAB PO SCH ×2 (09:32→22:09)
[2017-09-13] MEDS: RALTEGRAVIR POTASSIUM 400 MG TAB PO SCH ×2 (09:32→22:08)
[2017-09-13] MEDS: RITONAVIR 100 MG TABLET PO SCH ×2 (09:32→22:08)
[2017-09-13 11:10] LABS: PLATELET ESTIMATE DECREASED
[2017-09-13] MEDS ORDERED: CALCIUM GLUCONATE 10% - 1,000 MG/10 ML VIAL IVPB ONE (12:30)
--- NOTE | 2017-09-13 14:04 | PN ---
Progress Note, Physician History of Present Illness: Pt seen and examined at bedside. He is awake and alert. He denies shortness of breath. He denies dysuria. He does not feel that his lower ext edema is worse. - Current Medication List Current Medications: Active Medications Carvedilol (Coreg -) 3.125 mg PO BID [facility] Last Admin: 09/13/17 09:29 Dose: 3.125 mg Darunavir (Prezista -) 600 mg PO BID [facility] Last Admin: 09/13/17 09:32 Dose: 600 mg Docusate Sodium (Colace -) 100 mg PO BID [facility] Last Admin: 09/13/17 09:29 Dose: 100 mg Heparin Sodium (Porcine) (Heparin -) 5,000 unit SQ TID [facility] Last Admin: 09/13/17 06:40 Dose: 5,000 unit Metronidazole (Flagyl 500mg Premixed Ivpb -) 500 mg in 100 mls @ 100 mls/hr IVPB Q8H-IV [facility] Last Admin: 09/13/17 09:26 Dose: 100 mls/hr Ceftriaxone Sodium 2 gm/ (Dextrose) 100 mls @ 200 mls/hr IVPB DAILY [facility]; Protocol Last Admin: 09/13/17 09:27 Dose: 200 mls/hr Insulin Aspart (Novolog Vial Sliding Scale -) 1 vial SQ ACHS [facility]; Protocol Last Admin: 09/13/17 11:38 Dose: Not Given Multivitamins/Minerals/Vitamin C (Tab-A-Vit -) 1 tab PO DAILY [facility] Last Admin: 09/13/17 09:28 Dose: 1 tab Nifedipine (Procardia Xl -) 60 mg PO DAILY [facility] Last Admin: 09/13/17 09:29 Dose: 60 mg Polyethylene Glycol (Miralax (For Daily Use) -) 17 gm PO Q24H PRN PRN Reason: CONSTIPATION Raltegravir (Isentress -) 400 mg PO BID [facility] Last Admin: 09/13/17 09:32 Dose: 400 mg Ranitidine HCl (Zantac -) 150 mg PO DAILY [facility] Last Admin: 09/13/17 09:29 Dose: 150 mg Ritonavir (Norvir -) 100 mg PO BID [facility] Last Admin: 09/13/17 09:32 Dose: 100 mg Sodium Bicarbonate (Sodium Bicarbonate -) 650 mg PO TID [facility] Last Admin: 09/13/17 13:53 Dose: 650 mg Tamsulosin HCl (Flomax -) 0.4 mg PO BID [facility] Last Admin: 09/13/17 09:29 Dose: 0.4 mg - Objective Vital Signs: Vital Signs Temperature 97.9 F 09/13/17 08:23 Pulse Rate 72 09/13/17 08:23 Respiratory Rate 18 09/13/17 08:29 Blood Pressure 134/52 09/13/17 08:23 O2 Sat by Pulse Oximetry (%) 98 09/13/17 08:29 Constitutional: Yes: Calm Eyes: Yes: Conjunctiva Clear HENT: Yes: Atraumatic Neck: Yes: Supple Cardiovascular: Yes: S1, S2 Respiratory: Yes: CTA Bilaterally Gastrointestinal: Yes: Soft Genitourinary: Yes: Lara Present Musculoskeletal: Yes: WNL Extremities: Yes: WNL Edema: Yes Edema: LLE: 1+, RLE: 1+ Integumentary: Yes: WNL Neurological: Yes: Oriented Psychiatric: Yes: Oriented Labs: CBC, BMP 09/13/17 05:30 09/13/17 05:30 INR, PTT INR 1.12 (0.83-1.09) 09/11/17 08:05 Problem List - Problems (1) Acute urinary retention Code(s): R33.8 - OTHER RETENTION OF URINE (2) Cirrhosis of liver Code(s): K74.60 - UNSPECIFIED CIRRHOSIS OF LIVER (3) Renal insufficiency Code(s): N28.9 - DISORDER OF KIDNEY AND URETER, UNSPECIFIED (4) Chronic hepatitis C Code(s): B18.2 - CHRONIC VIRAL HEPATITIS C (5) Human immunodeficiency virus (HIV) seropositivity Code(s): Z21 - ASYMPTOMATIC HUMAN IMMUNODEFICIENCY VIRUS INFECTION STATUS Assessment/Plan Current Medications Generic Name Dose Route Start Last Admin Trade Name Freq PRN Reason Stop Dose Admin Carvedilol 3.125 mg 09/11/17 13:15 09/13/17 09:29 Coreg - PO 3.125 mg BID [facility] Administration Darunavir 600 mg 09/12/17 10:00 09/13/17 09:32 Prezista - PO 600 mg BID [facility] Administration Docusate Sodium 100 mg 09/12/17 22:00 09/13/17 09:29 Colace - PO 100 mg BID [facility] Administration Heparin Sodium (Porcine) 5,000 unit 09/11/17 12:00 09/13/17 06:40 Heparin - SQ 5,000 unit TID [facility] Administration Metronidazole 500 mg in 100 mls @ 100 mls/hr 09/11/17 18:00 09/13/17 09:26 Flagyl 500mg Premixed Ivpb - IVPB 100 mls/hr Q8H-IV [facility] Administration Ceftriaxone Sodium 2 gm/ 100 mls @ 200 mls/hr 09/11/17 16:45 09/13/17 09:27 Dextrose IVPB 200 mls/hr DAILY [facility] Administration Protocol Insulin Aspart 1 vial 09/11/17 11:00 09/13/17 11:38 Novolog Vial Sliding Scale - SQ Not Given ACHS [facility] Protocol Multivitamins/Minerals/Vitamin C 1 tab 09/11/17 11:30 09/13/17 09:28 Tab-A-Vit - PO 1 tab DAILY [facility] Administration Nifedipine 60 mg 09/11/17 13:15 09/13/17 09:29 Procardia Xl - PO 60 mg DAILY [facility] Administration Polyethylene Glycol 17 gm 09/12/17 15:33 Miralax (For Daily Use) - PO Q24H PRN [facility] Raltegravir 400 mg 09/12/17 10:00 09/13/17 09:32 Isentress - PO 400 mg BID [facility] Administration Ranitidine HCl 150 mg 09/11/17 11:30 09/13/17 09:29 Zantac - PO 150 mg DAILY [facility] Administration Ritonavir 100 mg 09/12/17 10:00 09/13/17 09:32 Norvir - PO 100 mg BID [facility] Administration Sodium Bicarbonate 650 mg 09/12/17 09:15 09/13/17 13:53 Sodium Bicarbonate - PO 650 mg TID [facility] Administration Tamsulosin HCl 0.4 mg 09/11/17 22:00 09/13/17 09:29 Flomax - PO 0.4 mg BID [facility] Administration Laboratory Tests 09/12/17 09/13/17 05:30 03:01 Stool Occult Blood Positive LUCHO M-Michael Pending AVA Screen Pending c-ANCA Pending Proteinase 3 (PR3) Pending p-ANCA Pending Atypical p-ANCA Pending Myeloperoxidase Ab Pending Double Strand DNA Ab Pending Glomerular Base Memb Ab Pending Impression 1. RICHY 2. 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 HIV 4. liver cirrhosis 5. Hep C 6. nephrolothiasis 7. DM 8. BPH 9. HTN 10. CLL Plan - renal function is improving - cont with fluids - keep arb on hold - etiology likely secondary to pre-renal disease and medication (pt was taking wrong doses) - follow renal workup - repeat labs in am - monitor urine output - urine output is improved Dr Wells
[2017-09-13] MEDS ORDERED: INSULIN (NOVOLOG) ASPART 100 UNITS/ML 10ML VIAL ONE (16:55)
[2017-09-13] MEDS: SODIUM CHLORIDE 0.45% 1,000 ML IV SCH (17:10)
--- NOTE | 2017-09-13 22:34 | PN ---
Physical Exam: SUBJECTIVE: Patient seen and examined this morning. Overnight, Patient had some dark stools. An FOBT was done and came back positive. Patient also had difficulty sleeping and was given melatonin. No other acute overnight events as per nursing. This morning, he complains of Left thigh pain that feels like a burn when he moves. Appetite remains intact, denies Nausea, vomiting. Denies fevers, chills, chest pain, SOB. OBJECTIVE: Vital Signs Period Temp Pulse Resp BP Sys/[place] Pulse Ox Last 24 Hr 97.9 F-98.6 F 72-77 18-20 127-137/52-57 98 Intake & Output 09/12/17 09/13/17 09/13/17 23:59 11:59 23:59 Intake Total 190 1220 Output Total 1000 1000 Balance -810 220 Weight 82.611 kg Intake: IV 920 1/2 Normal Saline 1,000 920 ml @ 83 mls/hr IV ASDIR [facility] Rx#:[id number] IVPB 10 300 Oral 180 Output: Urine 1000 1000 Lara 1000 1000 Other: Voiding Method Indwelling Catheter Indwelling Catheter Bowel Movement Yes Yes Weight Measurement Method Standing Scale GENERAL: The patient is awake, alert, and fully oriented, in no acute distress. THROAT: Oropharynx clear without exudates, moist mucous membranes. LUNGS: Breath sounds equal, clear to auscultation bilaterally, no wheezes, On 1.5L via NC HEART: Regular rate and rhythm, S1, S2 without murmur. ABDOMEN: Soft, nontender, distended, normoactive bowel sounds, No Dullness to percussion, No guarding, No rebound : Lara catheter draining clear yellow liquid UPPER EXTREMITIES: Chronic fine tremor of hands has worsened to include both upper extremities LOWER EXTREMITIES: 2+ pulses, 1+ pitting edema, Without erythema or obvious signs of trauma Laboratory Results - last 24 hr 09/12/17 09/12/17 09/12/17 05:30 05:30 05:30 WBC RBC Hgb Hct MCV MCH MCHC RDW Plt Count MPV Absolute Neuts (auto) Total Counted Neutrophils % Neutrophils % (Manual) Lymphocytes % Lymphocytes % (Manual) Monocytes % Monocytes % (Manual) Eosinophils % Basophils % Nucleated RBC % Platelet Estimate Sodium Potassium Chloride Carbon Dioxide Anion Gap BUN Creatinine Creat Clearance w eGFR POC Glucometer Random Glucose Calcium Phosphorus Magnesium Total Bilirubin AST ALT Alkaline Phosphatase Total Protein Albumin Stool Occult Blood IgG 449 L 450 L IgA 51 L Double Strand DNA Ab <1 09/12/17 09/13/17 09/13/17 22:02 03:01 05:30 WBC 33.5 H* RBC 2.71 L Hgb 8.0 L Hct 24.4 L MCV 90.2 MCH 29.5 MCHC 32.7 RDW 16.0 H Plt Count 85 L MPV 8.5 Absolute Neuts (auto) 0.5 Total Counted 100 Neutrophils % 1.5 L Neutrophils % (Manual) 1.0 L Lymphocytes % 98.0 H Lymphocytes % (Manual) 97.0 H* Monocytes % 0.4 L Monocytes % (Manual) 2 L D Eosinophils % 0.1 D Basophils % 0.0 Nucleated RBC % 0 Platelet Estimate Decreased Sodium Potassium Chloride Carbon Dioxide Anion Gap BUN Creatinine Creat Clearance w eGFR POC Glucometer 154 Random Glucose Calcium Phosphorus Magnesium Total Bilirubin AST ALT Alkaline Phosphatase Total Protein Albumin Stool Occult Blood Positive IgG IgA Double Strand DNA Ab 09/13/17 09/13/17 09/13/17 05:30 06:39 11:32 WBC RBC Hgb Hct MCV MCH MCHC RDW Plt Count MPV Absolute Neuts (auto) Total Counted Neutrophils % Neutrophils % (Manual) Lymphocytes % Lymphocytes % (Manual) Monocytes % Monocytes % (Manual) Eosinophils % Basophils % Nucleated RBC % Platelet Estimate Sodium 140 Potassium 4.4 Chloride 109 H Carbon Dioxide 16 L Anion Gap 15 BUN 135 H* Creatinine 6.4 H Creat Clearance w eGFR 8.83 POC Glucometer 190 156 Random Glucose 143 H Calcium 7.5 L Phosphorus 8.0 H Magnesium 3.2 H Total Bilirubin 0.2 AST 10 L ALT 17 Alkaline Phosphatase 58 Total Protein 5.7 L Albumin 3.2 L Stool Occult Blood IgG IgA Double Strand DNA Ab Microbiology 09/11/17 07:48 Blood - Peripheral Venous Blood Culture - Preliminary NO GROWTH OBTAINED AFTER 48 HOURS, INCUBATION TO CONTINUE FOR 3 DAYS. 09/11/17 08:05 Blood - Peripheral Venous Blood Culture - Preliminary NO GROWTH OBTAINED AFTER 48 HOURS, INCUBATION TO CONTINUE FOR 3 DAYS. 09/11/17 05:45 Urine - Urine - Catheterized Urine Culture - Final NO GROWTH OBTAINED Active Medications Carvedilol (Coreg -) 3.125 mg PO BID [facility] Last Admin: 09/13/17 22:08 Dose: 3.125 mg Darunavir (Prezista -) 600 mg PO BID [facility] Last Admin: 09/13/17 22:09 Dose: 600 mg Docusate Sodium (Colace -) 100 mg PO BID [facility] Last Admin: 09/13/17 22:13 Dose: Not Given Heparin Sodium (Porcine) (Heparin -) 5,000 unit SQ TID [facility] Last Admin: 09/13/17 06:40 Dose: 5,000 unit Metronidazole (Flagyl 500mg Premixed Ivpb -) 500 mg in 100 mls @ 100 mls/hr IVPB Q8H-IV [facility] Last Admin: 09/13/17 17:10 Dose: 100 mls/hr Ceftriaxone Sodium 2 gm/ (Dextrose) 100 mls @ 200 mls/hr IVPB DAILY [facility]; Protocol Last Admin: 09/13/17 09:27 Dose: 200 mls/hr Sodium Chloride (1/2 Normal Saline) 1,000 mls @ 83 mls/hr IV ASDIR [facility] Last Admin: 09/13/17 17:10 Dose: 83 mls/hr Insulin Aspart (Novolog Vial Sliding Scale -) 1 vial SQ ACHS [facility]; Protocol Last Admin: 09/13/17 22:17 Dose: Not Given Multivitamins/Minerals/Vitamin C (Tab-A-Vit -) 1 tab PO DAILY [facility] Last Admin: 09/13/17 09:28 Dose: 1 tab Nifedipine (Procardia Xl -) 60 mg PO DAILY [facility] Last Admin: 09/13/17 09:29 Dose: 60 mg Polyethylene Glycol (Miralax (For Daily Use) -) 17 gm PO Q24H PRN PRN Reason: CONSTIPATION Raltegravir (Isentress -) 400 mg PO BID [facility] Last Admin: 09/13/17 22:08 Dose: 400 mg Ranitidine HCl (Zantac -) 150 mg PO DAILY [facility] Last Admin: 09/13/17 09:29 Dose: 150 mg Ritonavir (Norvir -) 100 mg PO BID [facility] Last Admin: 09/13/17 22:08 Dose: 100 mg Sodium Bicarbonate (Sodium Bicarbonate -) 650 mg PO TID [facility] Last Admin: 09/13/17 22:08 Dose: 650 mg Tamsulosin HCl (Flomax -) 0.4 mg PO BID [facility] Last Admin: 09/13/17 22:08 Dose: 0.4 mg IMAGING: - CXR: Left axillary clips. Chronic changes left base. No acute chest pathology. - Bladder US: A Lara catheter is seen in place. At the time of examination the urinary bladder volume is approximately 84 mL. The urinary bladder demonstrates no gross mass lesion or calculus. There is no free intraperitoneal fluid within the lower pelvis. Mild prostate enlargement. - Kidney/Renal US: Prominent renal central sinus echoes, bilaterally suggestive of renal sinus lipomatosis. Small bilateral renal cysts with the largest cyst in the left kidney, anteriorly measuring 1.7 cm demonstrating a thin septation consistent with a complex cyst. Significant splenomegaly. - CT Abdomen Pelvis: Small right kidney relative to the left with small bilateral renal cysts. Nonobstructing left renal stone measuring 7 mm. There is stranding of the left perinephric fat with a small amount of fluid. Mild dilatation of the left renal pelvis. However, there is no gross evidence of hydroureter or obstructing ureteral stone, bilaterally. Hepatosplenomegaly with slightly lobulated hepatic contour suggestive of cirrhosis and questionable varicosis veins for which correlation with contrast-enhanced CT scan would be helpful. 1 cm faint ill-defined subcapsular hyperdensities seen along inferior margin of the spleen, laterally which is nonspecific. It may represent a hemangioma. A small subcapsular hematoma could not be excluded. Multiple mesenteric and retroperitoneal enlarged lymph nodes measuring up to 2.2 cm for which further evaluation is recommended. 2.8 cm right adrenal low-attenuation nodule that may represent an adrenal adenoma. Likely accessory spleen measuring 2.2 cm. Diverticulosis coli without diverticulitis at the junction of the distal descending and proximal sigmoid colon. No extraluminal air or abscess/ drainable collection is identified. There is a typographical error in the last sentence of the impression that should read; Diverticulosis coli with suggestion of mild colitis/ diverticulitis at the junction of the distal descending and proximal sigmoid colon. No extraluminal air or abscess/drainable collection is identified. - Duplex 2 Legs: No DVT is identified involving either leg. - ECHO: LV Systolic function is normal, RV systolic function is normal, Mild Mitral annular calcification, Mild MR, Mild TR, Mild , Trace pulmonic valvular regurgitation, moderately dilated IVC, No pericardial effusion - EKG: NSR ASSESSMENT/PLAN: 66 y/o M with PMH CLL, HIV, BPH, CKD (baseline Cr 2), NIDDM, Cirrhosis, hx of IVDA who presented to ED with complaint of incomplete urinary voiding and lower abdominal fullness since Thrus associated with decreased sleep, and night sweats. Exam significant for heart murmur, lung crackles, abdominal distension, pedal edema. Labs sig for leukocytosis, uremia, thrombocytopenia, proteinuria. Pt admitted for RICHY on CKD. 1. RICHY on CKD stage 4 - Baseline BUN/Cr of 45/2.6; 130/7 on admission, 135/6.7 today - UA: 3+ proteinuria - CT A/P: Nonobstructing left renal stone measuring 7 mm. Mild dilatation of the left renal pelvis. However, there is no gross evidence of hydroureter or obstructing ureteral stone, bilaterally. - Likely multifactorial due to decreased PO intake and increased lasix, metalazone and losartan with component of urinary retention - Lara placed in ED, Currently draining clear yellow urine - Monitor urine output, Strict I/Os - Nephrology (Dr. Wells) consulted, appreciate rec's, will hold Lasix and Arb , renal workup pending - Kidney/Renal US and Bladder US Noted above 2. Divirticulitis - CT A/P: Diverticulosis coli with suggestion of mild colitis/ diverticulitis at the junction of the distal descending and proximal sigmoid colon - Immunocompromised hx (HIV, CLL) however currently Asymptomatic, Benign Abdominal physical exam - ID (Dr. Bustillos) consulted, appreciate rec's, will continue IVF, f/u cultures - Continue Flagyl 500mg Q8H-IV (Day 3) - Continue Ceftriaxone 2 gm IV DAILY (Day 3) 3. HIV - Continue home HAART as per ID - Consider renally dosing - Neutropenic percautions 4. CLL - Per [facility] records, patient is stable with WBC at 60. No interventions indicated unless symptomatic or WBC > 100 - Hepatosplenomegaly noted on CT - Thrombocytopenia of 85 - Hematology/oncology (Dr. Kimble) consulted, appreciate rec's, Will monitor hemogram and check immunoglobulins 5. Hx of Cirrhosis - CT A/P: Hepatosplenomegaly with slightly lobulated hepatic contour suggestive of cirrhosis and questionable varicosis veins - AST 9 -> 10 - ALT 16 -> 17 - Alkaline Phosphatase 60 -> 58 - GI Consulted, will follow rec's, Dark stools over night were FOBT positive, Patient to follow up with [facility] next week for management 6. HTN - BP: 123-136/51-66 - Hold Lasix and Arb as per Renal - Continue home dose Carvedilol 3.125 mg PO BID - Continue home dose Nifedipine 60 mg PO DAILY 7. BPH - Lara placed in ED, Currently draining clear yellow urine - Continue Flomax 0.4 BID 8. NIDDM - Random Glucose 143 - Hold home dose glipizide - ISS & BGM ACHS 9. FEN - PO Fluids - Lytes wnl, replete as needed - Neutropenic diet 10. PPx - Heparin SQ TID Visit type - Emergency Visit Emergency Visit: Yes ED Registration Date: 09/11/17 Care time: The patient presented to the Emergency Department on the above date and was hospitalized for further evaluation of their emergent condition. - New Patient This patient is new to me today: No - Critical Care Critical Care patient: No
[2017-09-14] MEDS: SODIUM BICARBONATE 650 MG TABLET PO SCH ×3 (06:30→22:15)
[2017-09-14] MEDS: INSULIN SLIDING SCALE (NOVOLOG) 1 VIAL SQ SCH ×4 (06:36→22:16)
[2017-09-14 06:41] LABS: BASO % 0.1 % (0-2.0); HEMATOCRIT 24.1 % (35.4-49); HEMOGLOBIN 7.9 GM/dL (11.7-16.9); LYMPH % 97.9 % (8-40); MCH 29.8 pg (25.7-33.7); MCHC 32.9 g/dl (32.0-35.9); MEAN CELL VOLUME 90.6 fl (80-96); MEAN PLT VOLUME 8.3 fl (7.5-11.1); MONO % 0.4 % (3.8-10.2); NEUT % 1.6 % (42.8-82.8); PLATELET COUNT 90 K/MM3 (134-434); RBC 2.66 M/mm3 (4.00-5.60); RDW 15.8 % (11.9-15.9)
[2017-09-14 07:06] LABS: CHLORIDE 109 mmol/L (98-107); POTASSIUM 4.2 mmol/L (3.5-5.1); SODIUM 140 mmol/L (136-145)
[2017-09-14 07:16] LABS: WHITE BLOOD COUNT 34.7 K/mm3 (4.0-10.0)
[2017-09-14 07:17] LABS: ALBUMIN 3.3 g/dl (3.4-5.0); ALK PHOS 57 U/L (45-117); ANION GAP 16 (8-16); BILIRUBIN,TOTAL 0.2 mg/dL (0.2-1.0); CALCIUM 7.4 mg/dL (8.5-10.1); CO2 15 mmol/L (21-32); GLUCOSE,RANDOM 159 mg/dL (74-106); MAGNESIUM 2.7 mg/dL (1.8-2.4); PHOSPHOROUS 7.1 mg/dL (2.5-4.9); SGOT/AST 16 U/L (15-37); SGPT/ALT 17 U/L (12-78); TOT PROT 5.6 g/dl (6.4-8.2)
[2017-09-14 07:24] LABS: BLOOD UREA NITROGEN 124 mg/dL (7-18)
[2017-09-14] MEDS ORDERED: PT OWN MED DRAWER 7, Y5N ONE (08:51)
[2017-09-14] MEDS ORDERED: DEXTROSE 5%-WATER 100 ML IVPB ONE (08:52)
[2017-09-14 09:20] LABS: PLATELET ESTIMATE DECREASED; TEAR DROP CELLS 1+
[2017-09-14] MEDS: CARVEDILOL 3.125 MG TABLET (FP) PO SCH ×2 (09:32→22:15)
[2017-09-14] MEDS: TAMSULOSIN HCL 0.4 MG CAP.ER.24H (FP) PO SCH ×2 (09:32→22:15)
[2017-09-14] MEDS: CEFTRIAXONE 2 GM in DEXTROSE 5%-WATER 100 ML IVPB SCH (09:32)
[2017-09-14] MEDS: RANITIDINE HCL 150 MG TABLET (FP) PO SCH (09:32)
[2017-09-14] MEDS: MULTIVITAMINS (DAILY MVI) TABLET (FP) PO SCH (09:32)
[2017-09-14] MEDS: DOCUSATE SODIUM 100 MG CAPSULE (FP) PO SCH ×5 (09:32→22:01)
[2017-09-14] MEDS: NIFEdipine E.R 60 MG TABLET (UD) PO SCH (09:32)
[2017-09-14] MEDS: RILPIVIRINE HCL 25 MG TABLET PO SCH (09:33)
[2017-09-14] MEDS: RITONAVIR 100 MG TABLET PO SCH ×2 (09:33→22:15)
[2017-09-14] MEDS: RALTEGRAVIR POTASSIUM 400 MG TAB PO SCH ×2 (09:34→22:15)
[2017-09-14] MEDS: DARUNAVIR ETHANOLATE 600 MG TAB PO SCH ×2 (09:34→22:15)
[2017-09-14] MEDS ORDERED: PANTOPRAZOLE 40 MG TABLET (FP) PO SCH (10:00)
[2017-09-14 10:11] LABS: ANTIGLOMERULAR BASEMENT MEN.AB 3 units (0-20)
[2017-09-14] MEDS: POLYETHYLENE GLYCOL 3350 119 GM BTL PO SCH ×3 (10:52→22:01)
[2017-09-14] MEDS: SODIUM CHLORIDE 0.45% 1,000 ML IV SCH (14:16)
--- NOTE | 2017-09-14 14:36 | PN ---
Progress Note, Physician History of Present Illness: Pt seen and examined at bedside. He is awake and alert. He denies shortness of breath.He denies worsening of lower ext edema. - Current Medication List Current Medications: Active Medications Carvedilol (Coreg -) 3.125 mg PO BID [facility] Last Admin: 09/14/17 09:32 Dose: 3.125 mg Darunavir (Prezista -) 600 mg PO BID [facility] Last Admin: 09/14/17 09:34 Dose: 600 mg Docusate Sodium (Colace -) 100 mg PO TID [facility] Last Admin: 09/14/17 13:53 Dose: Not Given Heparin Sodium (Porcine) (Heparin -) 5,000 unit SQ TID [facility] Last Admin: 09/13/17 06:40 Dose: 5,000 unit Metronidazole (Flagyl 500mg Premixed Ivpb -) 500 mg in 100 mls @ 100 mls/hr IVPB Q8H-IV [facility] Last Admin: 09/14/17 09:32 Dose: 100 mls/hr Ceftriaxone Sodium 2 gm/ (Dextrose) 100 mls @ 200 mls/hr IVPB DAILY [facility]; Protocol Last Admin: 09/14/17 09:32 Dose: 200 mls/hr Sodium Chloride (1/2 Normal Saline) 1,000 mls @ 83 mls/hr IV ASDIR [facility] Last Admin: 09/13/17 17:10 Dose: 83 mls/hr Insulin Aspart (Novolog Vial Sliding Scale -) 1 vial SQ ACHS [facility]; Protocol Last Admin: 09/14/17 10:50 Dose: 2 units Multivitamins/Minerals/Vitamin C (Tab-A-Vit -) 1 tab PO DAILY [facility] Last Admin: 09/14/17 09:32 Dose: 1 tab Nifedipine (Procardia Xl -) 60 mg PO DAILY [facility] Last Admin: 09/14/17 09:32 Dose: 60 mg Polyethylene Glycol (Miralax (For Daily Use) -) 17 gm PO BID [facility] Last Admin: 09/14/17 13:53 Dose: Not Given Raltegravir (Isentress -) 400 mg PO BID [facility] Last Admin: 09/14/17 09:34 Dose: 400 mg Ranitidine HCl (Zantac -) 150 mg PO DAILY [facility] Last Admin: 09/14/17 09:32 Dose: 150 mg Ritonavir (Norvir -) 100 mg PO BID [facility] Last Admin: 09/14/17 09:33 Dose: 100 mg Sodium Bicarbonate (Sodium Bicarbonate -) 650 mg PO TID [facility] Last Admin: 09/14/17 13:50 Dose: 650 mg Tamsulosin HCl (Flomax -) 0.4 mg PO BID [facility] Last Admin: 09/14/17 09:32 Dose: 0.4 mg Tbo-Filgrastim (Granix -) 480 mcg SQ ONCE ONE Stop: 09/14/17 15:01 - Objective Vital Signs: Vital Signs Temperature 98.4 F 09/14/17 14:00 Pulse Rate 59 L 09/14/17 14:00 Respiratory Rate 20 09/14/17 14:00 Blood Pressure 105/45 09/14/17 14:00 O2 Sat by Pulse Oximetry (%) 97 09/14/17 08:04 Constitutional: Yes: Calm Eyes: Yes: Conjunctiva Clear HENT: Yes: Atraumatic Cardiovascular: Yes: S1, S2 Respiratory: Yes: CTA Bilaterally Gastrointestinal: Yes: Normal Bowel Sounds, Soft, Distention Genitourinary: Yes: WNL Musculoskeletal: Yes: WNL Edema: Yes Edema: LLE: 1+, RLE: 1+ Neurological: Yes: Oriented Psychiatric: Yes: Oriented Labs: CBC, BMP 09/14/17 05:30 09/14/17 05:30 INR, PTT INR 1.12 (0.83-1.09) 09/11/17 08:05 Problem List - Problems (1) Acute urinary retention Code(s): R33.8 - OTHER RETENTION OF URINE (2) Cirrhosis of liver Code(s): K74.60 - UNSPECIFIED CIRRHOSIS OF LIVER (3) Renal insufficiency Code(s): N28.9 - DISORDER OF KIDNEY AND URETER, UNSPECIFIED (4) Chronic hepatitis C Code(s): B18.2 - CHRONIC VIRAL HEPATITIS C (5) Human immunodeficiency virus (HIV) seropositivity Code(s): Z21 - ASYMPTOMATIC HUMAN IMMUNODEFICIENCY VIRUS INFECTION STATUS Assessment/Plan Current Medications Generic Name Dose Route Start Last Admin Trade Name Freq PRN Reason Stop Dose Admin Carvedilol 3.125 mg 09/11/17 13:15 09/14/17 09:32 Coreg - PO 3.125 mg BID [facility] Administration Darunavir 600 mg 09/12/17 10:00 09/14/17 09:34 Prezista - PO 600 mg BID [facility] Administration Docusate Sodium 100 mg 09/14/17 09:45 09/14/17 13:53 Colace - PO Not Given TID [facility] Heparin Sodium (Porcine) 5,000 unit 09/11/17 12:00 09/13/17 06:40 Heparin - SQ 5,000 unit TID [facility] Administration Metronidazole 500 mg in 100 mls @ 100 mls/hr 09/11/17 18:00 09/14/17 09:32 Flagyl 500mg Premixed Ivpb - IVPB 100 mls/hr Q8H-IV [facility] Administration Ceftriaxone Sodium 2 gm/ 100 mls @ 200 mls/hr 09/11/17 16:45 09/14/17 09:32 Dextrose IVPB 200 mls/hr DAILY [facility] Administration Protocol Sodium Chloride 1,000 mls @ 83 mls/hr 09/13/17 14:15 09/13/17 17:10 1/2 Normal Saline IV 83 mls/hr ASDIR [facility] Administration Insulin Aspart 1 vial 09/11/17 11:00 09/14/17 10:50 Novolog Vial Sliding Scale - SQ 2 units ACHS [facility] Administration Protocol Multivitamins/Minerals/Vitamin C 1 tab 09/11/17 11:30 09/14/17 09:32 Tab-A-Vit - PO 1 tab DAILY [facility] Administration Nifedipine 60 mg 09/11/17 13:15 09/14/17 09:32 Procardia Xl - PO 60 mg DAILY [facility] Administration Polyethylene Glycol 17 gm 09/14/17 09:45 09/14/17 13:53 Miralax (For Daily Use) - PO Not Given BID [facility] Raltegravir 400 mg 09/12/17 10:00 09/14/17 09:34 Isentress - PO 400 mg BID [facility] Administration Ranitidine HCl 150 mg 09/11/17 11:30 09/14/17 09:32 Zantac - PO 150 mg DAILY [facility] Administration Ritonavir 100 mg 09/12/17 10:00 09/14/17 09:33 Norvir - PO 100 mg BID [facility] Administration Sodium Bicarbonate 650 mg 09/12/17 09:15 09/14/17 13:50 Sodium Bicarbonate - PO 650 mg TID [facility] Administration Tamsulosin HCl 0.4 mg 09/11/17 22:00 08/03/18 09:32 Flomax - PO 0.4 mg BID [facility] Administration Tbo-Filgrastim 480 mcg 09/14/17 15:00 Granix - SQ 09/14/17 15:01 ONCE ONE Laboratory Tests 09/12/17 05:30 AVA Screen Negative c-ANCA Pending Proteinase 3 (PR3) Pending p-ANCA Pending Atypical p-ANCA Pending Myeloperoxidase Ab Pending Double Strand DNA Ab <1 Glomerular Base Memb Ab 3 Impression 1. 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 HIV 4. liver cirrhosis 5. Hep C 6. nephrolothiasis 7. DM 8. BPH 9. HTN 10. CLL Plan - renal function continues to improve - cont with fluids - keep arb on hold - renal workup is in progress - pt getting PRBC transfusion - etiology likely secondary to pre-renal disease and medication Dr Wells
--- NOTE | 2017-09-14 14:38 | PN ---
Teaching Attending Note Name of Resident: Irma Landa ATTENDING PHYSICIAN STATEMENT I saw and evaluated the patient. I reviewed the resident's note and discussed the case with the resident. I agree with the resident's findings and plan as documented with exceptions below. SUBJECTIVE: Patient seen and examined. still with some leg spasms/sharp pains, no nausea, vomiting or abdominal pain. Resolved urinary symptoms. No BM since yesterday. OBJECTIVE: Vital Signs Period Temp Pulse Resp BP Sys/Ventura Pulse Ox Last 24 Hr 98.0 F-98.7 F 59-82 18-20 105-137/45-58 97-97 Intake & Output 09/11/17 09/12/17 09/13/17 09/14/17 23:59 23:59 23:59 23:59 Intake Total 171 035 4612 996 Output Total 900 1650 1900 900 Balance -680 -1460 -200 96 Weight 181 lb 180 lb 3.2 oz 182 lb 2 oz 183 lb 6.4 oz General: lying in bed in no acute distress Chest: cTAB, no rales or wheezing Abdomen:Soft, unchanged distension, NT, throughout, positive bowel sounds Extremities: unchanged pedal edema Active Medications Carvedilol (Coreg -) 3.125 mg PO BID [facility] Last Admin: 09/14/17 09:32 Dose: 3.125 mg Darunavir (Prezista -) 600 mg PO BID [facility] Last Admin: 09/14/17 09:34 Dose: 600 mg Docusate Sodium (Colace -) 100 mg PO TID [facility] Last Admin: 09/14/17 13:53 Dose: Not Given Heparin Sodium (Porcine) (Heparin -) 5,000 unit SQ TID [facility] Last Admin: 09/13/17 06:40 Dose: 5,000 unit Metronidazole (Flagyl 500mg Premixed Ivpb -) 500 mg in 100 mls @ 100 mls/hr IVPB Q8H-IV [facility] Last Admin: 09/14/17 09:32 Dose: 100 mls/hr Ceftriaxone Sodium 2 gm/ (Dextrose) 100 mls @ 200 mls/hr IVPB DAILY [facility]; Protocol Last Admin: 09/14/17 09:32 Dose: 200 mls/hr Sodium Chloride (1/2 Normal Saline) 1,000 mls @ 83 mls/hr IV ASDIR [facility] Last Admin: 09/13/17 17:10 Dose: 83 mls/hr Insulin Aspart (Novolog Vial Sliding Scale -) 1 vial SQ ACHS [facility]; Protocol Last Admin: 09/14/17 10:50 Dose: 2 units Multivitamins/Minerals/Vitamin C (Tab-A-Vit -) 1 tab PO DAILY [facility] Last Admin: 09/14/17 09:32 Dose: 1 tab Nifedipine (Procardia Xl -) 60 mg PO DAILY [facility] Last Admin: 09/14/17 09:32 Dose: 60 mg Polyethylene Glycol (Miralax (For Daily Use) -) 17 gm PO BID [facility] Last Admin: 09/14/17 13:53 Dose: Not Given Raltegravir (Isentress -) 400 mg PO BID [facility] Last Admin: 09/14/17 09:34 Dose: 400 mg Ranitidine HCl (Zantac -) 150 mg PO DAILY [facility] Last Admin: 09/14/17 09:32 Dose: 150 mg Ritonavir (Norvir -) 100 mg PO BID [facility] Last Admin: 09/14/17 09:33 Dose: 100 mg Sodium Bicarbonate (Sodium Bicarbonate -) 650 mg PO TID [facility] Last Admin: 09/14/17 13:50 Dose: 650 mg Tamsulosin HCl (Flomax -) 0.4 mg PO BID [facility] Last Admin: 09/14/17 09:32 Dose: 0.4 mg Tbo-Filgrastim (Granix -) 480 mcg SQ ONCE ONE Stop: 09/14/17 15:01 Laboratory Results - last 24 hr 09/12/17 09/13/17 09/13/17 05:30 16:50 22:16 WBC RBC Hgb Hct MCV MCH MCHC RDW Plt Count MPV Absolute Neuts (auto) Neutrophils % Neutrophils % (Manual) Band Neutrophils % Lymphocytes % Lymphocytes % (Manual) Monocytes % Monocytes % (Manual) Eosinophils % Eosinophils % (Manual) Basophils % Basophils % (Manual) Myelocytes % (Man) Promyelocytes % (Man) Blast Cells % (Manual) Nucleated RBC % Metamyelocytes Platelet Estimate Tear Drop Cells Sodium Potassium Chloride Carbon Dioxide Anion Gap BUN Creatinine Creat Clearance w eGFR POC Glucometer 200 151 Random Glucose Calcium Phosphorus Magnesium Total Bilirubin AST ALT Alkaline Phosphatase Total Protein Total Protein (PEP) 5.6 L Albumin Albumin (PEP) 3.2 Globulin 2.4 Albumin/Globulin Ratio 1.3 Beta Globulins 0.8 LUCHO M-Michael Not observed AVA Screen Negative Glomerular Base Memb Ab 3 Blood Type Antibody Screen Crossmatch 09/14/17 09/14/17 09/14/17 05:30 05:30 06:28 WBC 34.7 H* RBC 2.66 L Hgb 7.9 L Hct 24.1 L MCV 90.6 MCH 29.8 MCHC 32.9 RDW 15.8 Plt Count 90 L MPV 8.3 Absolute Neuts (auto) 0.6 Neutrophils % 1.6 L Neutrophils % (Manual) 1.2 L Band Neutrophils % 0.0 Lymphocytes % 97.9 H Lymphocytes % (Manual) 98.8 H* Monocytes % 0.4 L Monocytes % (Manual) 0 L D Eosinophils % 0.0 D Eosinophils % (Manual) 0.0 Basophils % 0.1 D Basophils % (Manual) 0.0 Myelocytes % (Man) 0 Promyelocytes % (Man) 0 Blast Cells % (Manual) 0 Nucleated RBC % 0 Metamyelocytes 0 Platelet Estimate Decreased Tear Drop Cells 1+ Sodium 140 Potassium 4.2 Chloride 109 H Carbon Dioxide 15 L Anion Gap 16 BUN 124 H* Creatinine 6.0 H Creat Clearance w eGFR 9.51 POC Glucometer 166 Random Glucose 159 H Calcium 7.4 L Phosphorus 7.1 H Magnesium 2.7 H Total Bilirubin 0.2 AST 16 D ALT 17 Alkaline Phosphatase 57 Total Protein 5.6 L Total Protein (PEP) Albumin 3.3 L Albumin (PEP) Globulin Albumin/Globulin Ratio Beta Globulins LUCHO M-Michale AVA Screen Glomerular Base Memb Ab Blood Type Antibody Screen Crossmatch 09/14/17 09/14/17 10:05 10:48 WBC RBC Hgb Hct MCV MCH MCHC RDW Plt Count MPV Absolute Neuts (auto) Neutrophils % Neutrophils % (Manual) Band Neutrophils % Lymphocytes % Lymphocytes % (Manual) Monocytes % Monocytes % (Manual) Eosinophils % Eosinophils % (Manual) Basophils % Basophils % (Manual) Myelocytes % (Man) Promyelocytes % (Man) Blast Cells % (Manual) Nucleated RBC % Metamyelocytes Platelet Estimate Tear Drop Cells Sodium Potassium Chloride Carbon Dioxide Anion Gap BUN Creatinine Creat Clearance w eGFR POC Glucometer 163 Random Glucose Calcium Phosphorus Magnesium Total Bilirubin AST ALT Alkaline Phosphatase Total Protein Total Protein (PEP) Albumin Albumin (PEP) Globulin Albumin/Globulin Ratio Beta Globulins LUCHO M-Michael AVA Screen Glomerular Base Memb Ab Blood Type B NEGATIVE Antibody Screen Negative Crossmatch See Detail Microbiology 09/11/17 07:48 Blood - Peripheral Venous Blood Culture - Preliminary NO GROWTH OBTAINED AFTER 72 HOURS, INCUBATION TO CONTINUE FOR 2 DAYS. 09/11/17 08:05 Blood - Peripheral Venous Blood Culture - Preliminary NO GROWTH OBTAINED AFTER 72 HOURS, INCUBATION TO CONTINUE FOR 2 DAYS. 09/11/17 05:45 Urine - Urine - Catheterized Urine Culture - Final NO GROWTH OBTAINED Abdominal US minimal ascitis ASSESSMENT AND PLAN: 66 yom with extensive PMHx as above admitted with RICHY, hyperkalemia and urinary symptoms. -RICHY on CKD stage IV (baseline cr 2.2 in 06/2017), suspect multifactorial from poor oral intake, medications (self increase in lasix, resumption of metolazone , continuation of ARB) with urinary retention, hepatorenal syndrome on differential but low suspicion currently -Hyperkalemia from above, resolved -Mild Acute uncomplicated diverticulitis -Occult GIB. -Anemia, suspect multifactorial from CKD, hemodilution, blood draws +/- occult GIB (no further dark stools) -Left perinephric stranding, clinically not consistent with pyelonephritis -HIV on HAART -CLL (recent WBC 50s) with lymphocytic predominance and absolute neutropenia -HIV On HAART -Treated HCV -Cirrhosis with portal hypertension -H/o IVDU (heroine/cocaine) -HTN -NIDDM -BPH -H/o NICM, last EF 65% in 2016 -Ex -smoker Plan: Transfuse 1 unit PRBC. Renal function and urine output continue to improve. Renal input appreciated. 1/2 NS at 83 ml/hr, strict I/Os, hold lasix/ARB/metolazone. Renal dosing of medications. 2D echo noted. Ceftriaxone/flagyl day 4, continue for now. Renal/bladder Ultrasound noted. ID input appreciated. HAART per ID. Neutropenic precautions. Oncology input appreciated. No further dark stools, discussed with GI, no plan for intervention currently, monitor closely, patient with no further dark stools or evidence of hemodynamic instability. Continue coreg and nifedipine as BP tolerated. DVTPPX with heparin. Plan discussed in detail with patient and all questions answered. Patient relays understanding and in agreement.
[2017-09-14] MEDS ORDERED: TBO-FILGRASTIM 480 MCG/0.8 ML DISP.SYRIN SQ ONE (15:00)
--- NOTE | 2017-09-14 15:05 | PN ---
Physical Exam: SUBJECTIVE: Patient seen and examined Feels good No events overnight. Denies fever, chills, nausea, vomiting. OBJECTIVE: Vital Signs Period Temp Pulse Resp BP Sys/Ventura Pulse Ox Last 24 Hr 98.0 F-98.7 F 59-82 18-20 105-137/45-58 97-97 GENERAL: The patient is awake, alert, and fully oriented, in no acute distress. HEAD: Normal with no signs of trauma. EYES: no pallor, no icterus ENT: moist mucous membranes, No oral thrush NECK: Lymphnode palpable in right posterior triangle and supraclavicular. Axilla: Central/ apical lymphnode palpable in right axilla LUNGS: Breath sounds equal, clear to auscultation bilaterally, no wheezes, no crackles, no accessory muscle use. HEART: s1s2 normal ABDOMEN: Soft, nontender, distended,, no guarding, no rebound, Liver palpable, lower border palpable about 5 finger below costal margin, firm in consistency, non tender, smooth/ slightly lobulated. Fluid thrill and shifting dulness present EXTREMITIES: warm, edema 1 + PSYCH: Normal mood, SKIN: Warm, dry, 09/14/17 09/14/17 10:05 10:48 WBC RBC Hgb Hct MCV MCH MCHC RDW Plt Count MPV Absolute Neuts (auto) Neutrophils % Neutrophils % (Manual) Band Neutrophils % Lymphocytes % Lymphocytes % (Manual) Monocytes % Monocytes % (Manual) Eosinophils % Eosinophils % (Manual) Basophils % Basophils % (Manual) Myelocytes % (Man) Promyelocytes % (Man) Blast Cells % (Manual) Nucleated RBC % Metamyelocytes Platelet Estimate Tear Drop Cells Sodium Potassium Chloride Carbon Dioxide Anion Gap BUN Creatinine Creat Clearance w eGFR POC Glucometer 163 Random Glucose Calcium Phosphorus Magnesium Total Bilirubin AST ALT Alkaline Phosphatase Total Protein Total Protein (PEP) Albumin Albumin (PEP) Globulin Albumin/Globulin Ratio Beta Globulins LUCHO M-Michael AVA Screen Glomerular Base Memb Ab Blood Type B NEGATIVE Antibody Screen Negative Crossmatch See Detail Active Medications Generic Name Dose Route Start Last Admin Trade Name Freq PRN Reason Stop Dose Admin Carvedilol 3.125 mg 09/11/17 13:15 09/14/17 09:32 Coreg - PO 3.125 mg BID [facility] Administration Darunavir 600 mg 09/12/17 10:00 09/14/17 09:34 Prezista - PO 600 mg BID [facility] Administration Docusate Sodium 100 mg 09/14/17 09:45 09/14/17 13:53 Colace - PO Not Given TID [facility] Heparin Sodium (Porcine) 5,000 unit 09/11/17 12:00 09/13/17 06:40 Heparin - SQ 5,000 unit TID [facility] Administration Metronidazole 500 mg in 100 mls @ 100 mls/hr 09/11/17 18:00 09/14/17 09:32 Flagyl 500mg Premixed Ivpb - IVPB 100 mls/hr Q8H-IV [facility] Administration Ceftriaxone Sodium 2 gm/ 100 mls @ 200 mls/hr 09/11/17 16:45 09/14/17 09:32 Dextrose IVPB 200 mls/hr DAILY [facility] Administration Protocol Sodium Chloride 1,000 mls @ 83 mls/hr 09/13/17 14:15 09/13/17 17:10 1/2 Normal Saline IV 83 mls/hr ASDIR [facility] Administration Insulin Aspart 1 vial 09/11/17 11:00 09/14/17 10:50 Novolog Vial Sliding Scale - SQ 2 units ACHS [facility] Administration Protocol Multivitamins/Minerals/Vitamin C 1 tab 09/11/17 11:30 09/14/17 09:32 Tab-A-Vit - PO 1 tab DAILY [facility] Administration Nifedipine 60 mg 09/11/17 13:15 09/14/17 09:32 Procardia Xl - PO 60 mg DAILY [facility] Administration Polyethylene Glycol 17 gm 09/14/17 09:45 09/14/17 13:53 Miralax (For Daily Use) - PO Not Given BID [facility] Raltegravir 400 mg 09/12/17 10:00 09/14/17 09:34 Isentress - PO 400 mg BID [facility] Administration Ranitidine HCl 150 mg 09/11/17 11:30 09/14/17 09:32 Zantac - PO 150 mg DAILY [facility] Administration Ritonavir 100 mg 09/12/17 10:00 09/14/17 09:33 Norvir - PO 100 mg BID [facility] Administration Sodium Bicarbonate 650 mg 09/12/17 09:15 09/14/17 13:50 Sodium Bicarbonate - PO 650 mg TID [facility] Administration Tamsulosin HCl 0.4 mg 09/11/17 22:00 09/14/17 09:32 Flomax - PO 0.4 mg BID [facility] Administration ASSESSMENT/PLAN: RICHY on CKD del 17 p CLL Anemia with thrombocytopenia with leucocytosis. Heptaospleenomegaly with portal hypertension with cirrhosis. Lymphadenopathy HIV on treatment. Plan. monitor cbc check immunoglobin level. hold neupogen as patient is not septic. - Visit type - Emergency Visit Emergency Visit: Yes ED Registration Date: 09/11/17 Care time: The patient presented to the Emergency Department on the above date and was hospitalized for further evaluation of their emergent condition. - New Patient This patient is new to me today: No - Critical Care Critical Care patient: No
--- NOTE | 2017-09-14 16:29 | PN ---
Teaching Attending Note Name of Resident: Shaggy Pyle ATTENDING PHYSICIAN STATEMENT I saw and evaluated the patient. I reviewed the resident's note and discussed the case with the resident. I agree with the resident's findings and plan as documented. SUBJECTIVE: Patient seen and examined Longstanding CLL,HIV presents with UTI on antibiotics and with ortiz catheter Has anemia, neutropenia and thromobcytopenia. 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 Will check immunoglobulin levels. For now in absence of fevers and with negative cultures, will hold off on neupogen. Continue to monitor.
--- NOTE | 2017-09-14 16:54 | PN ---
Progress Note (short form) - Note Progress Note: no pain no fever Vital Signs Period Temp Pulse Resp BP Sys/Ventura Pulse Ox Last 24 Hr 98.0 F-98.7 F 59-82 18-20 105-137/45-58 97-97 cor-rrr lungs clear abd soft,nt ext no edema ortiz intact CBC, BMP 09/14/17 05:30 09/14/17 05:30 a/p Acute renal failure-improving ?diverticulitis-to finish 7 day rocephin/flagyl CLL-neutropenic HIV- stable-continue meds hep c treated please call back if needed
--- NOTE | 2017-09-14 20:48 | PN ---
Physical Exam: SUBJECTIVE: Patient seen and examined this morning at bedside. Has not had a BM overnight. Denies fevers, chills, chest pain, SOB, nausea, vomiting. OBJECTIVE: Vital Signs Period Temp Pulse Resp BP Sys/Ventura Pulse Ox Last 24 Hr 98.1 F-98.7 F 59-82 18-20 105-137/45-58 97-97 GENERAL: The patient is awake, alert, and fully oriented, in no acute distress. LUNGS: Breath sounds equal, clear to auscultation bilaterally, no wheezes, On 1.5L via NC HEART: Regular rate and rhythm, S1, S2 without murmur. ABDOMEN: Soft, nontender, remains distended, normoactive bowel sounds : Lara catheter draining clear yellow liquid UPPER EXTREMITIES: Chronic fine tremor of hands LOWER EXTREMITIES: 2+ pulses, 1+ pitting edema Laboratory Results - last 24 hr 09/12/17 09/13/17 09/14/17 05:30 22:16 05:30 WBC 34.7 H* RBC 2.66 L Hgb 7.9 L Hct 24.1 L MCV 90.6 MCH 29.8 MCHC 32.9 RDW 15.8 Plt Count 90 L MPV 8.3 Absolute Neuts (auto) 0.6 Neutrophils % 1.6 L Neutrophils % (Manual) 1.2 L Band Neutrophils % 0.0 Lymphocytes % 97.9 H Lymphocytes % (Manual) 98.8 H* Monocytes % 0.4 L Monocytes % (Manual) 0 L D Eosinophils % 0.0 D Eosinophils % (Manual) 0.0 Basophils % 0.1 D Basophils % (Manual) 0.0 Myelocytes % (Man) 0 Promyelocytes % (Man) 0 Blast Cells % (Manual) 0 Nucleated RBC % 0 Metamyelocytes 0 Platelet Estimate Decreased Tear Drop Cells 1+ Sodium Potassium Chloride Carbon Dioxide Anion Gap BUN Creatinine Creat Clearance w eGFR POC Glucometer 151 Random Glucose Calcium Phosphorus Magnesium Total Bilirubin AST ALT Alkaline Phosphatase Total Protein Total Protein (PEP) 5.6 L Albumin Albumin (PEP) 3.2 Globulin 2.4 Albumin/Globulin Ratio 1.3 Beta Globulins 0.8 LUCHO M-Michael Not observed AVA Screen Negative Glomerular Base Memb Ab 3 Blood Type Antibody Screen Crossmatch 09/14/17 09/14/17 09/14/17 05:30 06:28 10:05 WBC RBC Hgb Hct MCV MCH MCHC RDW Plt Count MPV Absolute Neuts (auto) Neutrophils % Neutrophils % (Manual) Band Neutrophils % Lymphocytes % Lymphocytes % (Manual) Monocytes % Monocytes % (Manual) Eosinophils % Eosinophils % (Manual) Basophils % Basophils % (Manual) Myelocytes % (Man) Promyelocytes % (Man) Blast Cells % (Manual) Nucleated RBC % Metamyelocytes Platelet Estimate Tear Drop Cells Sodium 140 Potassium 4.2 Chloride 109 H Carbon Dioxide 15 L Anion Gap 16 BUN 124 H* Creatinine 6.0 H Creat Clearance w eGFR 9.51 POC Glucometer 166 Random Glucose 159 H Calcium 7.4 L Phosphorus 7.1 H Magnesium 2.7 H Total Bilirubin 0.2 AST 16 D ALT 17 Alkaline Phosphatase 57 Total Protein 5.6 L Total Protein (PEP) Albumin 3.3 L Albumin (PEP) Globulin Albumin/Globulin Ratio Beta Globulins LUCHO M-Michael AVA Screen Glomerular Base Memb Ab Blood Type B NEGATIVE Antibody Screen Negative Crossmatch See Detail 09/14/17 09/14/17 10:48 16:53 WBC RBC Hgb Hct MCV MCH MCHC RDW Plt Count MPV Absolute Neuts (auto) Neutrophils % Neutrophils % (Manual) Band Neutrophils % Lymphocytes % Lymphocytes % (Manual) Monocytes % Monocytes % (Manual) Eosinophils % Eosinophils % (Manual) Basophils % Basophils % (Manual) Myelocytes % (Man) Promyelocytes % (Man) Blast Cells % (Manual) Nucleated RBC % Metamyelocytes Platelet Estimate Tear Drop Cells Sodium Potassium Chloride Carbon Dioxide Anion Gap BUN Creatinine Creat Clearance w eGFR POC Glucometer 163 217 Random Glucose Calcium Phosphorus Magnesium Total Bilirubin AST ALT Alkaline Phosphatase Total Protein Total Protein (PEP) Albumin Albumin (PEP) Globulin Albumin/Globulin Ratio Beta Globulins LUCHO M-Michael AVA Screen Glomerular Base Memb Ab Blood Type Antibody Screen Crossmatch Microbiology 09/11/17 07:48 Blood - Peripheral Venous Blood Culture - Preliminary NO GROWTH OBTAINED AFTER 72 HOURS, INCUBATION TO CONTINUE FOR 2 DAYS. 09/11/17 08:05 Blood - Peripheral Venous Blood Culture - Preliminary NO GROWTH OBTAINED AFTER 72 HOURS, INCUBATION TO CONTINUE FOR 2 DAYS. 09/11/17 05:45 Urine - Urine - Catheterized Urine Culture - Final NO GROWTH OBTAINED Active Medications Carvedilol (Coreg -) 3.125 mg PO BID [facility] Last Admin: 09/14/17 09:32 Dose: 3.125 mg Darunavir (Prezista -) 600 mg PO BID [facility] Last Admin: 09/14/17 09:34 Dose: 600 mg Docusate Sodium (Colace -) 100 mg PO TID [facility] Last Admin: 09/14/17 13:53 Dose: Not Given Heparin Sodium (Porcine) (Heparin -) 5,000 unit SQ TID [facility] Last Admin: 09/13/17 06:40 Dose: 5,000 unit Metronidazole (Flagyl 500mg Premixed Ivpb -) 500 mg in 100 mls @ 100 mls/hr IVPB Q8H-IV [facility] Last Admin: 09/14/17 17:36 Dose: 100 mls/hr Ceftriaxone Sodium 2 gm/ (Dextrose) 100 mls @ 200 mls/hr IVPB DAILY [facility]; Protocol Last Admin: 09/14/17 09:32 Dose: 200 mls/hr Sodium Chloride (1/2 Normal Saline) 1,000 mls @ 83 mls/hr IV ASDIR [facility] Last Admin: 09/14/17 14:16 Dose: Not Given Insulin Aspart (Novolog Vial Sliding Scale -) 1 vial SQ ACHS [facility]; Protocol Last Admin: 09/14/17 16:56 Dose: 4 units Multivitamins/Minerals/Vitamin C (Tab-A-Vit -) 1 tab PO DAILY [facility] Last Admin: 09/14/17 09:32 Dose: 1 tab Nifedipine (Procardia Xl -) 60 mg PO DAILY [facility] Last Admin: 09/14/17 09:32 Dose: 60 mg Polyethylene Glycol (Miralax (For Daily Use) -) 17 gm PO BID [facility] Last Admin: 09/14/17 13:53 Dose: Not Given Raltegravir (Isentress -) 400 mg PO BID [facility] Last Admin: 09/14/17 09:34 Dose: 400 mg Ranitidine HCl (Zantac -) 150 mg PO DAILY [facility] Last Admin: 09/14/17 09:32 Dose: 150 mg Ritonavir (Norvir -) 100 mg PO BID [facility] Last Admin: 09/14/17 09:33 Dose: 100 mg Sodium Bicarbonate (Sodium Bicarbonate -) 650 mg PO TID [facility] Last Admin: 09/14/17 13:50 Dose: 650 mg Tamsulosin HCl (Flomax -) 0.4 mg PO BID [facility] Last Admin: 09/14/17 09:32 Dose: 0.4 mg IMAGING: - CXR: Left axillary clips. Chronic changes left base. No acute chest pathology. - Bladder US: A Lara catheter is seen in place. At the time of examination the urinary bladder volume is approximately 84 mL. The urinary bladder demonstrates no gross mass lesion or calculus. There is no free intraperitoneal fluid within the lower pelvis. Mild prostate enlargement. - Kidney/Renal US: Prominent renal central sinus echoes, bilaterally suggestive of renal sinus lipomatosis. Small bilateral renal cysts with the largest cyst in the left kidney, anteriorly measuring 1.7 cm demonstrating a thin septation consistent with a complex cyst. Significant splenomegaly. - CT Abdomen Pelvis: Small right kidney relative to the left with small bilateral renal cysts. Nonobstructing left renal stone measuring 7 mm. There is stranding of the left perinephric fat with a small amount of fluid. Mild dilatation of the left renal pelvis. However, there is no gross evidence of hydroureter or obstructing ureteral stone, bilaterally. Hepatosplenomegaly with slightly lobulated hepatic contour suggestive of cirrhosis and questionable varicosis veins for which correlation with contrast-enhanced CT scan would be helpful. 1 cm faint ill-defined subcapsular hyperdensities seen along inferior margin of the spleen, laterally which is nonspecific. It may represent a hemangioma. A small subcapsular hematoma could not be excluded. Multiple mesenteric and retroperitoneal enlarged lymph nodes measuring up to 2.2 cm for which further evaluation is recommended. 2.8 cm right adrenal low-attenuation nodule that may represent an adrenal adenoma. Likely accessory spleen measuring 2.2 cm. Diverticulosis coli without diverticulitis at the junction of the distal descending and proximal sigmoid colon. No extraluminal air or abscess/ drainable collection is identified. There is a typographical error in the last sentence of the impression that should read; Diverticulosis coli with suggestion of mild colitis/ diverticulitis at the junction of the distal descending and proximal sigmoid colon. No extraluminal air or abscess/drainable collection is identified. - Duplex 2 Legs: No DVT is identified involving either leg. - ECHO: LV Systolic function is normal, RV systolic function is normal, Mild Mitral annular calcification, Mild MR, Mild TR, Mild , Trace pulmonic valvular regurgitation, moderately dilated IVC, No pericardial effusion - EKG: NSR ASSESSMENT/PLAN: 66 y/o M with PMH CLL, HIV, BPH, CKD (baseline Cr 2), NIDDM, Cirrhosis, hx of IVDA who presented to ED with complaint of incomplete urinary voiding and lower abdominal fullness since Thrus associated with decreased sleep, and night sweats. Exam significant for heart murmur, lung crackles, abdominal distension, pedal edema. Labs sig for leukocytosis, uremia, thrombocytopenia, proteinuria. Pt admitted for RICHY on CKD. 1. RICHY on CKD stage 4 - Baseline BUN/Cr of 45/2.6; 124/6.0 today - UA: 3+ proteinuria - CT A/P: Nonobstructing left renal stone measuring 7 mm. Mild dilatation of the left renal pelvis. However, there is no gross evidence of hydroureter or obstructing ureteral stone, bilaterally. - Likely multifactorial due to decreased PO intake and increased lasix, metalazone and losartan with component of urinary retention - Lara placed in ED, Currently draining clear yellow urine - Monitor urine output, Strict I/Os - Nephrology (Dr. Wells) consulted, appreciate rec's, will hold Lasix and Arb , renal workup pending - Kidney/Renal US and Bladder US Noted above - 1 unit pRBC transfused (09/14) - Continue 1/2 Normal Saline @ 83 mls/hr 2. Divirticulitis - CT A/P: Diverticulosis coli with suggestion of mild colitis/ diverticulitis at the junction of the distal descending and proximal sigmoid colon - Immunocompromised hx (HIV, CLL) however currently Asymptomatic, Benign Abdominal physical exam - ID (Dr. Bustillos) consulted, appreciate rec's, will continue IVF, f/u cultures - Continue Flagyl 500mg Q8H-IV (Day 4) - Continue Ceftriaxone 2 gm IV DAILY (Day 4) 3. HIV - Continue home HAART as per ID - Consider renally dosing - Neutropenic percautions 4. CLL - Per [facility] records, patient is stable with WBC at 60. No interventions indicated unless symptomatic or WBC > 100 - Hepatosplenomegaly noted on CT - Thrombocytopenia of 85 - Hematology/oncology (Dr. Kimble) consulted, appreciate rec's, Will monitor hemogram and check immunoglobulins 5. Hx of Cirrhosis - CT A/P: Hepatosplenomegaly with slightly lobulated hepatic contour suggestive of cirrhosis and questionable varicosis veins - AST 16 - ALT 17 - Alkaline Phosphatase 57 - GI Consulted, will follow rec's, Dark stools FOBT positive x1. No further dark stools, Patient to follow up with [facility] next week for management 6. HTN - BP: 105-137/45-58 - Hold Lasix and Arb as per Renal - Continue home dose Carvedilol 3.125 mg PO BID - Continue home dose Nifedipine 60 mg PO DAILY 7. BPH - Lara placed in ED, Currently draining clear yellow urine - Continue Flomax 0.4 BID 8. NIDDM - Random Glucose 143 - Hold home dose glipizide - ISS & BGM ACHS 9. FEN - Continue 1/2 Normal Saline @ 83 mls/hr - Lytes wnl, replete as needed - Neutropenic diet 10. PPx - Heparin SQ TID Visit type - Emergency Visit Emergency Visit: Yes ED Registration Date: 09/11/17 Care time: The patient presented to the Emergency Department on the above date and was hospitalized for further evaluation of their emergent condition. - New Patient This patient is new to me today: No - Critical Care Critical Care patient: No
[2017-09-14] MEDS ORDERED: ONDANSETRON 4 MG/2 ML VIAL IVPUSH ONE (21:05)
[2017-09-15 00:06] LABS: ATYPICAL pANCA <1:20 titer (Neg:<1:20); C-ANCA <1:20 titer (Neg:<1:20); P-ANCA <1:20 titer (Neg:<1:20); PROTEINASE-3 ANTIBODY <3.5 U/mL (0.0-3.5)
[2017-09-15] MEDS: DOCUSATE SODIUM 100 MG CAPSULE (FP) PO SCH ×2 (06:17→22:20)
[2017-09-15] MEDS: INSULIN SLIDING SCALE (NOVOLOG) 1 VIAL SQ SCH ×4 (06:17→22:27)
[2017-09-15] MEDS: SODIUM BICARBONATE 650 MG TABLET PO SCH ×3 (06:22→22:18)
[2017-09-15 06:53] LABS: BASO % 0.1 % (0-2.0); HEMATOCRIT 25.1 % (35.4-49); HEMOGLOBIN 8.3 GM/dL (11.7-16.9); LYMPH % 97.4 % (8-40); MCH 29.7 pg (25.7-33.7); MEAN CELL VOLUME 89.9 fl (80-96); MEAN PLT VOLUME 8.5 fl (7.5-11.1); MONO % 0.4 % (3.8-10.2); NEUT % 2.1 % (42.8-82.8); PLATELET COUNT 87 K/MM3 (134-434); RBC 2.79 M/mm3 (4.00-5.60); RDW 15.8 % (11.9-15.9)
[2017-09-15 07:24] LABS: ALBUMIN 3.3 g/dl (3.4-5.0); ANION GAP 12 (8-16); CALCIUM 7.9 mg/dL (8.5-10.1); CHLORIDE 114 mmol/L (98-107); CO2 17 mmol/L (21-32); CREATININE 5.5 mg/dL (0.7-1.3); GLUCOSE,RANDOM 117 mg/dL (74-106); MAGNESIUM 2.9 mg/dL (1.8-2.4); PHOSPHOROUS 6.3 mg/dL (2.5-4.9); POTASSIUM 4.3 mmol/L (3.5-5.1); SGOT/AST 22 U/L (15-37); SGPT/ALT 20 U/L (12-78); SODIUM 143 mmol/L (136-145)
[2017-09-15 07:25] LABS: ALK PHOS 58 U/L (45-117); BILIRUBIN,TOTAL 0.3 mg/dL (0.2-1.0); TOT PROT 5.4 g/dl (6.4-8.2)
[2017-09-15 07:36] LABS: BLOOD UREA NITROGEN 116 mg/dL (7-18)
[2017-09-15] MEDS ORDERED: DEXTROSE 5%-WATER 100 ML IVPB ONE (08:49)
[2017-09-15] MEDS: CEFTRIAXONE 2 GM in DEXTROSE 5%-WATER 100 ML IVPB SCH (09:13)
[2017-09-15] MEDS: RANITIDINE HCL 150 MG TABLET (FP) PO SCH (09:14)
[2017-09-15] MEDS: TAMSULOSIN HCL 0.4 MG CAP.ER.24H (FP) PO SCH ×2 (09:14→22:19)
[2017-09-15] MEDS: CARVEDILOL 3.125 MG TABLET (FP) PO SCH ×2 (09:14→22:17)
[2017-09-15] MEDS: MULTIVITAMINS (DAILY MVI) TABLET (FP) PO SCH (09:14)
[2017-09-15] MEDS: RITONAVIR 100 MG TABLET PO SCH ×2 (09:15→22:22)
[2017-09-15] MEDS: NIFEdipine E.R 60 MG TABLET (UD) PO SCH (09:15)
[2017-09-15] MEDS: RILPIVIRINE HCL 25 MG TABLET PO SCH (09:16)
[2017-09-15] MEDS: DARUNAVIR ETHANOLATE 600 MG TAB PO SCH ×2 (09:16→22:22)
[2017-09-15] MEDS: RALTEGRAVIR POTASSIUM 400 MG TAB PO SCH ×2 (09:17→22:21)
[2017-09-15] MEDS: POLYETHYLENE GLYCOL 3350 119 GM BTL PO SCH (09:19)
[2017-09-15 11:32] LABS: SMUDGE CELLS MODERATE
[2017-09-15 11:33] LABS: PLATELET ESTIMATE DECREASED
--- NOTE | 2017-09-15 12:06 | PN ---
Physical Exam: SUBJECTIVE: Patient seen and examined complain of internal hemorrhoid , bright blood when cleaning cont to have black stool urine output 1500 over last 24 hour OBJECTIVE: Vital Signs Period Temp Pulse Resp BP Sys/Ventura Pulse Ox Last 24 Hr 97.9 F-99 F 59-74 18-20 105-149/43-60 95-95 GENERAL: The patient is awake, alert, and fully oriented, in no acute distress. LUNGS: Breath sounds equal, clear to auscultation bilaterally, no wheezes, On 1.5L via NC HEART: Regular rate and rhythm, S1, S2 without murmur. ABDOMEN: Soft, nontender, remains distended, normoactive bowel sounds : Lara catheter draining clear yellow liquid UPPER EXTREMITIES: Chronic fine tremor of hands LOWER EXTREMITIES: 2+ pulses, 2+ pitting edema Laboratory Results - last 24 hr 09/12/17 09/14/17 09/14/17 05:30 16:53 22:13 WBC RBC Hgb Hct MCV MCH MCHC RDW Plt Count MPV Absolute Neuts (auto) Neutrophils % Neutrophils % (Manual) Lymphocytes % Lymphocytes % (Manual) Monocytes % Monocytes % (Manual) Eosinophils % Basophils % Nucleated RBC % Smudge Cells Hypochromia Platelet Estimate Platelet Comment Poikilocytosis Sodium Potassium Chloride Carbon Dioxide Anion Gap BUN Creatinine Creat Clearance w eGFR POC Glucometer 217 155 Random Glucose Calcium Phosphorus Magnesium Total Bilirubin AST ALT Alkaline Phosphatase Total Protein Albumin c-ANCA <1:20 Proteinase 3 (PR3) <3.5 p-ANCA <1:20 Atypical p-ANCA <1:20 Myeloperoxidase Ab <9.0 09/15/17 09/15/17 09/15/17 05:30 05:30 06:14 WBC 34.0 H* RBC 2.79 L Hgb 8.3 L Hct 25.1 L MCV 89.9 MCH 29.7 MCHC 33.0 RDW 15.8 Plt Count 87 L MPV 8.5 Absolute Neuts (auto) 0.7 Neutrophils % 2.1 L Neutrophils % (Manual) 1.0 L Lymphocytes % 97.4 H Lymphocytes % (Manual) 93.0 H* Monocytes % 0.4 L Monocytes % (Manual) 1 L D Eosinophils % 0.0 Basophils % 0.1 Nucleated RBC % 0 Smudge Cells Moderate Hypochromia 2+ Platelet Estimate Decreased Platelet Comment No clumping noted Poikilocytosis 1+ Sodium 143 Potassium 4.3 Chloride 114 H Carbon Dioxide 17 L Anion Gap 12 BUN 116 H* Creatinine 5.5 H Creat Clearance w eGFR 10.52 POC Glucometer 125 Random Glucose 117 H D Calcium 7.9 L Phosphorus 6.3 H Magnesium 2.9 H Total Bilirubin 0.3 AST 22 D ALT 20 Alkaline Phosphatase 58 Total Protein 5.4 L Albumin 3.3 L c-ANCA Proteinase 3 (PR3) p-ANCA Atypical p-ANCA Myeloperoxidase Ab 09/15/17 11:09 WBC RBC Hgb Hct MCV MCH MCHC RDW Plt Count MPV Absolute Neuts (auto) Neutrophils % Neutrophils % (Manual) Lymphocytes % Lymphocytes % (Manual) Monocytes % Monocytes % (Manual) Eosinophils % Basophils % Nucleated RBC % Smudge Cells Hypochromia Platelet Estimate Platelet Comment Poikilocytosis Sodium Potassium Chloride Carbon Dioxide Anion Gap BUN Creatinine Creat Clearance w eGFR POC Glucometer 258 Random Glucose Calcium Phosphorus Magnesium Total Bilirubin AST ALT Alkaline Phosphatase Total Protein Albumin c-ANCA Proteinase 3 (PR3) p-ANCA Atypical p-ANCA Myeloperoxidase Ab Active Medications Generic Name Dose Route Start Last Admin Trade Name Freq PRN Reason Stop Dose Admin Carvedilol 3.125 mg 09/11/17 13:15 09/15/17 09:14 Coreg - PO 3.125 mg BID [facility] Administration Darunavir 600 mg 09/12/17 10:00 09/15/17 09:16 Prezista - PO 600 mg BID [facility] Administration Docusate Sodium 100 mg 09/14/17 09:45 09/15/17 06:17 Colace - PO Not Given TID [facility] Heparin Sodium (Porcine) 5,000 unit 09/11/17 12:00 09/13/17 06:40 Heparin - SQ 5,000 unit TID [facility] Administration Hydrocortisone 1 applic 09/15/17 11:45 Anusol 2.5% Hc Cream - [place] BID [facility] Metronidazole 500 mg in 100 mls @ 100 mls/hr 09/11/17 18:00 09/15/17 09:13 Flagyl 500mg Premixed Ivpb - IVPB 100 mls/hr Q8H-IV [facility] Administration Ceftriaxone Sodium 2 gm/ 100 mls @ 200 mls/hr 09/11/17 16:45 09/15/17 09:13 Dextrose IVPB 200 mls/hr DAILY [facility] Administration Protocol Sodium Chloride 1,000 mls @ 83 mls/hr 09/13/17 14:15 09/14/17 14:16 1/2 Normal Saline IV Not Given ASDIR [facility] Insulin Aspart 1 vial 09/11/17 11:00 09/15/17 11:13 Novolog Vial Sliding Scale - SQ 8 units ACHS [facility] Administration Protocol Multivitamins/Minerals/Vitamin C 1 tab 09/11/17 11:30 09/15/17 09:14 Tab-A-Vit - PO 1 tab DAILY [facility] Administration Nifedipine 60 mg 09/11/17 13:15 09/15/17 09:15 Procardia Xl - PO 60 mg DAILY [facility] Administration Polyethylene Glycol 17 gm 09/14/17 09:45 09/15/17 09:19 Miralax (For Daily Use) - PO Not Given BID [facility] Raltegravir 400 mg 09/12/17 10:00 09/15/17 09:17 Isentress - PO 400 mg BID [facility] Administration Ranitidine HCl 150 mg 09/11/17 11:30 09/15/17 09:14 Zantac - PO 150 mg DAILY [facility] Administration Ritonavir 100 mg 09/12/17 10:00 09/15/17 09:15 Norvir - PO 100 mg BID [facility] Administration Sodium Bicarbonate 650 mg 09/12/17 09:15 09/15/17 06:22 Sodium Bicarbonate - PO 650 mg TID [facility] Administration Tamsulosin HCl 0.4 mg 09/11/17 22:00 09/15/17 09:14 Flomax - PO 0.4 mg BID [facility] Administration CBC, BMP 09/15/17 05:30 09/15/17 05:30 ASSESSMENT/PLAN: 66 y/o M with PMH CLL, HIV, BPH, CKD (baseline Cr 2), NIDDM, Cirrhosis, hx of IVDA who presented to ED with complaint of incomplete urinary voiding and lower abdominal fullness since Thrus associated with decreased sleep, and night sweats. Exam significant for heart murmur, lung crackles, abdominal distension, pedal edema. Labs sig for leukocytosis, uremia, thrombocytopenia, proteinuria. Pt admitted for RICHY on CKD. # RICHY on CKD stage 4 - Baseline BUN/Cr of 45/2.6; 116/5.5 today - UA: 3+ proteinuria - CT A/P: Nonobstructing left renal stone measuring 7 mm. Mild dilatation of the left renal pelvis. However, there is no gross evidence of hydroureter or obstructing ureteral stone, bilaterally. - Likely multifactorial due to decreased PO intake and increased lasix, metalazone and losartan with component of urinary retention - Lara placed in ED, Currently draining clear yellow urine - Monitor urine output, Strict I/Os - Nephrology (Dr. Wells) consulted, appreciate rec's, will hold Lasix and Arb , renal workup pending - Kidney/Renal US and Bladder US Noted above - 1 unit pRBC transfused (09/14) - Continue 1/2 Normal Saline @ 83 mls/hr # Divirticulitis - CT A/P: Diverticulosis coli with suggestion of mild colitis/ diverticulitis at the junction of the distal descending and proximal sigmoid colon - Immunocompromised hx (HIV, CLL) however currently Asymptomatic, Benign Abdominal physical exam - ID (Dr. Bustillos) consulted, appreciate rec's, will continue IVF, f/u cultures - Continue Flagyl 500mg Q8H-IV (Day 4) - Continue Ceftriaxone 2 gm IV DAILY (Day 4) # HIV - Continue home HAART as per ID - Consider renally dosing - Neutropenic percautions #CLL - Per [facility] records, patient is stable with WBC at 60. No interventions indicated unless symptomatic or WBC > 100 - Hepatosplenomegaly noted on CT - Thrombocytopenia of 87 - Hematology/oncology (Dr. Kimble) consulted, appreciate rec's, Will monitor hemogram and check immunoglobulins # Hx of Cirrhosis - CT A/P: Hepatosplenomegaly with slightly lobulated hepatic contour suggestive of cirrhosis and questionable varicosis veins - monitor LFTS - GI Consulted, will follow rec's, Dark stools FOBT positive x1. No further dark stools, Patient to follow up with [facility] next week for management # HTN - BP: 105-137/45-58 - Hold Lasix and Arb as per Renal - Continue home dose Carvedilol 3.125 mg PO BID - Continue home dose Nifedipine 60 mg PO DAILY # BPH - Lara placed in ED, Currently draining clear yellow urine - Continue Flomax 0.4 BID # NIDDM - Random Glucose 143 - Hold home dose glipizide - ISS & BGM ACHS #FEN - Continue 1/2 Normal Saline @ 83 mls/hr - Lytes wnl, replete as needed - Neutropenic diet # PPx - Heparin SQ TID Visit type - Emergency Visit Emergency Visit: Yes ED Registration Date: 09/11/17 Care time: The patient presented to the Emergency Department on the above date and was hospitalized for further evaluation of their emergent condition. - New Patient This patient is new to me today: No - Critical Care Critical Care patient: No - Discharge Referral Referred to [facility] No
--- NOTE | 2017-09-15 12:47 | PN ---
Teaching Attending Note Name of Resident: Yoni Malin ATTENDING PHYSICIAN STATEMENT I saw and evaluated the patient. I reviewed the resident's note and discussed the case with the resident. I agree with the resident's findings and plan as documented with exceptions below. SUBJECTIVE: Patient seen and examined. straining at BM, small BM. Urinating well. OBJECTIVE: Vital Signs Period Temp Pulse Resp BP Sys/Ventura Pulse Ox Last 24 Hr 97.9 F-99 F 59-74 18-20 105-149/43-60 95-95 Intake & Output 09/12/17 09/13/17 09/14/17 09/15/17 23:59 23:59 23:59 23:59 Intake Total 190 1700 2386 1346 Output Total 1650 1900 1500 850 Balance -1460 -200 886 496 Weight 180 lb 3.2 oz 182 lb 2 oz 183 lb 6.4 oz 183 lb 12.8 oz General: lying in bed in no acute distress Abdomen:soft, distended, unchanged, non tender throughout, positive bowel sounds Extremities: trace pedal edema unchanged Chest; CTAB, no rales or wheezing Active Medications Carvedilol (Coreg -) 3.125 mg PO BID [facility] Last Admin: 09/15/17 09:14 Dose: 3.125 mg Darunavir (Prezista -) 600 mg PO BID [facility] Last Admin: 09/15/17 09:16 Dose: 600 mg Docusate Sodium (Colace -) 100 mg PO TID [facility] Last Admin: 09/15/17 06:17 Dose: Not Given Heparin Sodium (Porcine) (Heparin -) 5,000 unit SQ TID [facility] Last Admin: 09/13/17 06:40 Dose: 5,000 unit Hydrocortisone (Anusol 2.5% Hc Cream -) 1 applic AR BID [facility] Metronidazole (Flagyl 500mg Premixed Ivpb -) 500 mg in 100 mls @ 100 mls/hr IVPB Q8H-IV [facility] Last Admin: 09/15/17 09:13 Dose: 100 mls/hr Ceftriaxone Sodium 2 gm/ (Dextrose) 100 mls @ 200 mls/hr IVPB DAILY [facility]; Protocol Last Admin: 09/15/17 09:13 Dose: 200 mls/hr Sodium Chloride (1/2 Normal Saline) 1,000 mls @ 83 mls/hr IV ASDIR [facility] Last Admin: 09/14/17 14:16 Dose: Not Given Insulin Aspart (Novolog Vial Sliding Scale -) 1 vial SQ ACHS [facility]; Protocol Last Admin: 09/15/17 11:13 Dose: 8 units Multivitamins/Minerals/Vitamin C (Tab-A-Vit -) 1 tab PO DAILY [facility] Last Admin: 09/15/17 09:14 Dose: 1 tab Nifedipine (Procardia Xl -) 60 mg PO DAILY [facility] Last Admin: 09/15/17 09:15 Dose: 60 mg Polyethylene Glycol (Miralax (For Daily Use) -) 17 gm PO BID [facility] Last Admin: 09/15/17 09:19 Dose: Not Given Psyllium Hydrophilic Mucilloid (Metamucil (Sugar-Free) -) 5.85 gm PO BID [facility] Raltegravir (Isentress -) 400 mg PO BID [facility] Last Admin: 09/15/17 09:17 Dose: 400 mg Ranitidine HCl (Zantac -) 150 mg PO DAILY [facility] Last Admin: 09/15/17 09:14 Dose: 150 mg Ritonavir (Norvir -) 100 mg PO BID [facility] Last Admin: 09/15/17 09:15 Dose: 100 mg Sodium Bicarbonate (Sodium Bicarbonate -) 650 mg PO TID [facility] Last Admin: 09/15/17 06:22 Dose: 650 mg Tamsulosin HCl (Flomax -) 0.4 mg PO BID [facility] Last Admin: 09/15/17 09:14 Dose: 0.4 mg Laboratory Results - last 24 hr 09/12/17 09/14/17 09/14/17 05:30 16:53 22:13 WBC RBC Hgb Hct MCV MCH MCHC RDW Plt Count MPV Absolute Neuts (auto) Neutrophils % Neutrophils % (Manual) Lymphocytes % Lymphocytes % (Manual) Monocytes % Monocytes % (Manual) Eosinophils % Basophils % Nucleated RBC % Smudge Cells Hypochromia Platelet Estimate Platelet Comment Poikilocytosis Sodium Potassium Chloride Carbon Dioxide Anion Gap BUN Creatinine Creat Clearance w eGFR POC Glucometer 217 155 Random Glucose Calcium Phosphorus Magnesium Total Bilirubin AST ALT Alkaline Phosphatase Total Protein Albumin c-ANCA <1:20 Proteinase 3 (PR3) <3.5 p-ANCA <1:20 Atypical p-ANCA <1:20 Myeloperoxidase Ab <9.0 09/15/17 09/15/17 09/15/17 05:30 05:30 06:14 WBC 34.0 H* RBC 2.79 L Hgb 8.3 L Hct 25.1 L MCV 89.9 MCH 29.7 MCHC 33.0 RDW 15.8 Plt Count 87 L MPV 8.5 Absolute Neuts (auto) 0.7 Neutrophils % 2.1 L Neutrophils % (Manual) 1.0 L Lymphocytes % 97.4 H Lymphocytes % (Manual) 93.0 H* Monocytes % 0.4 L Monocytes % (Manual) 1 L D Eosinophils % 0.0 Basophils % 0.1 Nucleated RBC % 0 Smudge Cells Moderate Hypochromia 2+ Platelet Estimate Decreased Platelet Comment No clumping noted Poikilocytosis 1+ Sodium 143 Potassium 4.3 Chloride 114 H Carbon Dioxide 17 L Anion Gap 12 BUN 116 H* Creatinine 5.5 H Creat Clearance w eGFR 10.52 POC Glucometer 125 Random Glucose 117 H D Calcium 7.9 L Phosphorus 6.3 H Magnesium 2.9 H Total Bilirubin 0.3 AST 22 D ALT 20 Alkaline Phosphatase 58 Total Protein 5.4 L Albumin 3.3 L c-ANCA Proteinase 3 (PR3) p-ANCA Atypical p-ANCA Myeloperoxidase Ab 09/15/17 11:09 WBC RBC Hgb Hct MCV MCH MCHC RDW Plt Count MPV Absolute Neuts (auto) Neutrophils % Neutrophils % (Manual) Lymphocytes % Lymphocytes % (Manual) Monocytes % Monocytes % (Manual) Eosinophils % Basophils % Nucleated RBC % Smudge Cells Hypochromia Platelet Estimate Platelet Comment Poikilocytosis Sodium Potassium Chloride Carbon Dioxide Anion Gap BUN Creatinine Creat Clearance w eGFR POC Glucometer 258 Random Glucose Calcium Phosphorus Magnesium Total Bilirubin AST ALT Alkaline Phosphatase Total Protein Albumin c-ANCA Proteinase 3 (PR3) p-ANCA Atypical p-ANCA Myeloperoxidase Ab Microbiology 09/11/17 07:48 Blood - Peripheral Venous Blood Culture - Preliminary NO GROWTH OBTAINED AFTER 96 HOURS, INCUBATION TO CONTINUE FOR 1 DAYS. 09/11/17 08:05 Blood - Peripheral Venous Blood Culture - Preliminary NO GROWTH OBTAINED AFTER 96 HOURS, INCUBATION TO CONTINUE FOR 1 DAYS. 09/11/17 05:45 Urine - Urine - Catheterized Urine Culture - Final NO GROWTH OBTAINED ASSESSMENT AND PLAN: 66 yom with extensive PMHx as above admitted with RICHY, hyperkalemia and urinary symptoms. -RICHY on CKD stage IV (baseline cr 2.2 in 06/2017), suspect multifactorial from poor oral intake, medications (self increase in lasix, resumption of metolazone , continuation of ARB) with urinary retention, hepatorenal syndrome on differential but low suspicion currently -Hyperkalemia from above, resolved -Mild Acute uncomplicated diverticulitis -Acute haemorrhoidal bleed/Constipation. -Anemia, suspect multifactorial from CKD, hemodilution, blood draws +/- occult GIB (no further dark stools) -Left perinephric stranding, clinically not consistent with pyelonephritis -HIV on HAART -CLL (recent WBC 50s) with lymphocytic predominance and absolute neutropenia -HIV On HAART -Treated HCV -Cirrhosis with portal hypertension -H/o IVDU (heroine/cocaine) -HTN -NIDDM -BPH -H/o NICM, last EF 65% in 2016 -Ex -smoker Plan: Renal function and urine output continue to improve. Renal input appreciated. 1/2 NS at 83 ml/hr, strict I/Os, hold lasix/ARB/metolazone. Renal dosing of medications. 2D echo noted. Ceftriaxone/flagyl day 5/7, continue for now. Renal/bladder Ultrasound noted. ID input appreciated. HAART per ID. Neutropenic precautions. Oncology input appreciated. s/p 1 unit PRBC 09/14. Add psyllium. Continue bowel regimen and follow up with GI for haemorrhoidal bleed in the setting of cirrhosis. Trend platelets. Continue coreg and nifedipine as BP tolerated. DVTPPX with heparin, hold if ongoing haemorrhoidal bleed. Plan discussed in detail with patient and all questions answered. Patient relays understanding and in agreement.
[2017-09-15] MEDS: HYDROCORTISONE 2.5% TOPICAL CREAM 30 GM TUBE PR SCH ×2 (12:51→22:24)
[2017-09-15] MEDS: PSYLLIUM 5.85 GM PACKET PO SCH ×2 (12:52→22:20)
[2017-09-15] MEDS ORDERED: DOCUSATE SODIUM 100 MG CAPSULE (FP) PO PRN (12:53)
[2017-09-15] MEDS: SODIUM CHLORIDE 0.45% 1,000 ML IV SCH (13:48)
[2017-09-15] MEDS: HEPARIN NA (PORCINE) 5,000 UNITS/ML 1ML VIAL SQ SCH (13:49)
--- NOTE | 2017-09-15 16:34 | PN ---
Progress Note, Physician History of Present Illness: Pt seen and examined at bedside. He is awake and alert. He denies shortness of breath. - Current Medication List Current Medications: Active Medications Carvedilol (Coreg -) 3.125 mg PO BID [facility] Last Admin: 09/15/17 09:14 Dose: 3.125 mg Darunavir (Prezista -) 600 mg PO BID [facility] Last Admin: 09/15/17 09:16 Dose: 600 mg Docusate Sodium (Colace -) 100 mg PO TID PRN PRN Reason: CONSTIPATION Heparin Sodium (Porcine) (Heparin -) 5,000 unit SQ TID [facility] Last Admin: 09/15/17 13:49 Dose: Not Given Hydrocortisone (Anusol 2.5% Hc Cream -) [address] BID [facility] Last Admin: 09/15/17 12:51 Dose: 1 applic Metronidazole (Flagyl 500mg Premixed Ivpb -) 500 mg in 100 mls @ 100 mls/hr IVPB Q8H-IV [facility] Last Admin: 09/15/17 09:13 Dose: 100 mls/hr Ceftriaxone Sodium 2 gm/ (Dextrose) 100 mls @ 200 mls/hr IVPB DAILY [facility]; Protocol Last Admin: 09/15/17 09:13 Dose: 200 mls/hr Sodium Chloride (1/2 Normal Saline) 1,000 mls @ 83 mls/hr IV ASDIR [facility] Last Admin: 09/15/17 13:48 Dose: 83 mls/hr Insulin Aspart (Novolog Vial Sliding Scale -) 1 vial SQ ACHS [facility]; Protocol Last Admin: 09/15/17 11:13 Dose: 8 units Multivitamins/Minerals/Vitamin C (Tab-A-Vit -) 1 tab PO DAILY [facility] Last Admin: 09/15/17 09:14 Dose: 1 tab Nifedipine (Procardia Xl -) 60 mg PO DAILY [facility] Last Admin: 09/15/17 09:15 Dose: 60 mg Polyethylene Glycol (Miralax (For Daily Use) -) 17 gm PO DAILY [facility] Psyllium Hydrophilic Mucilloid (Metamucil (Sugar-Free) -) 5.85 gm PO BID [facility] Last Admin: 09/15/17 12:52 Dose: Not Given Raltegravir (Isentress -) 400 mg PO BID [facility] Last Admin: 09/15/17 09:17 Dose: 400 mg Ranitidine HCl (Zantac -) 150 mg PO DAILY [facility] Last Admin: 09/15/17 09:14 Dose: 150 mg Ritonavir (Norvir -) 100 mg PO BID [facility] Last Admin: 09/15/17 09:15 Dose: 100 mg Sodium Bicarbonate (Sodium Bicarbonate -) 650 mg PO TID [facility] Last Admin: 09/15/17 13:48 Dose: 650 mg Tamsulosin HCl (Flomax -) 0.4 mg PO BID [facility] Last Admin: 09/15/17 09:14 Dose: 0.4 mg - Objective Vital Signs: Vital Signs Temperature 98.5 F 09/15/17 08:20 Pulse Rate 74 09/15/17 08:20 Respiratory Rate 18 09/15/17 08:20 Blood Pressure 132/55 09/15/17 08:20 O2 Sat by Pulse Oximetry (%) 95 09/15/17 08:17 Constitutional: Yes: Calm Eyes: Yes: Conjunctiva Clear HENT: Yes: Atraumatic Neck: Yes: Supple Cardiovascular: Yes: S1, S2 Respiratory: Yes: CTA Bilaterally Gastrointestinal: Yes: Soft, Distention Genitourinary: Yes: WNL Musculoskeletal: Yes: WNL Edema: Yes Edema: LLE: 1+, RLE: 1+ Neurological: Yes: Oriented Psychiatric: Yes: Oriented Labs: CBC, BMP 09/15/17 05:30 09/15/17 05:30 INR, PTT INR 1.12 (0.83-1.09) 09/11/17 08:05 Problem List - Problems (1) Acute urinary retention Code(s): R33.8 - OTHER RETENTION OF URINE (2) Cirrhosis of liver Code(s): K74.60 - UNSPECIFIED CIRRHOSIS OF LIVER (3) Renal insufficiency Code(s): N28.9 - DISORDER OF KIDNEY AND URETER, UNSPECIFIED (4) Chronic hepatitis C Code(s): B18.2 - CHRONIC VIRAL HEPATITIS C (5) Human immunodeficiency virus (HIV) seropositivity Code(s): Z21 - ASYMPTOMATIC HUMAN IMMUNODEFICIENCY VIRUS INFECTION STATUS Assessment/Plan Current Medications Generic Name Dose Route Start Last Admin Trade Name Freq PRN Reason Stop Dose Admin Carvedilol 3.125 mg 09/11/17 13:15 09/15/17 09:14 Coreg - PO 3.125 mg BID [facility] Administration Darunavir 600 mg 09/12/17 10:00 08/04/18 09:16 Prezista - PO 600 mg BID [facility] Administration Docusate Sodium 100 mg 09/15/17 12:53 Colace - PO TID PRN CONSTIPATION Heparin Sodium (Porcine) 5,000 unit 09/11/17 12:00 09/15/17 13:49 Heparin - SQ Not Given TID [facility] Hydrocortisone 1 applic 09/15/17 11:45 09/15/17 12:51 Anusol 2.5% Hc Cream - CT 1 applic BID [facility] Administration Metronidazole 500 mg in 100 mls @ 100 mls/hr 09/11/17 18:00 09/15/17 09:13 Flagyl 500mg Premixed Ivpb - IVPB 100 mls/hr Q8H-IV [facility] Administration Ceftriaxone Sodium 2 gm/ 100 mls @ 200 mls/hr 09/11/17 16:45 09/15/17 09:13 Dextrose IVPB 200 mls/hr DAILY [facility] Administration Protocol Sodium Chloride 1,000 mls @ 83 mls/hr 09/13/17 14:15 09/15/17 13:48 1/2 Normal Saline IV 83 mls/hr ASDIR [facility] Administration Insulin Aspart 1 vial 09/11/17 11:00 09/15/17 11:13 Novolog Vial Sliding Scale - SQ 8 units ACHS [facility] Administration Protocol Multivitamins/Minerals/Vitamin C 1 tab 09/11/17 11:30 09/15/17 09:14 Tab-A-Vit - PO 1 tab DAILY [facility] Administration Nifedipine 60 mg 09/11/17 13:15 09/15/17 09:15 Procardia Xl - PO 60 mg DAILY [facility] Administration Polyethylene Glycol 17 gm 09/16/17 10:00 Miralax (For Daily Use) - PO DAILY [facility] Psyllium Hydrophilic Mucilloid 5.85 gm 09/15/17 12:45 09/15/17 12:52 Metamucil (Sugar-Free) - PO Not Given BID [facility] Raltegravir 400 mg 09/12/17 10:00 09/15/17 09:17 Isentress - PO 400 mg BID [facility] Administration Ranitidine HCl 150 mg 09/11/17 11:30 09/15/17 09:14 Zantac - PO 150 mg DAILY [facility] Administration Ritonavir 100 mg 09/12/17 10:00 09/15/17 09:15 Norvir - PO 100 mg BID [facility] Administration Sodium Bicarbonate 650 mg 09/12/17 09:15 09/15/17 13:48 Sodium Bicarbonate - PO 650 mg TID [facility] Administration Tamsulosin HCl 0.4 mg 09/11/17 22:00 09/15/17 09:14 Flomax - PO 0.4 mg BID [facility] Administration Laboratory Tests 09/11/17 09/12/17 09/13/17 18:30 05:30 03:01 Protein/Creatinin Ratio 1.79 Stool Occult Blood Positive LUCHO M-Michael Not observed AVA Screen Negative c-ANCA <1:20 Proteinase 3 (PR3) <3.5 p-ANCA <1:20 Atypical p-ANCA <1:20 Myeloperoxidase Ab <9.0 Double Strand DNA Ab <1 Glomerular Base Memb Ab 3 Impression 1. RICHY 2. CKD with baseline advertising representative 2.2 3. HIV 4. liver cirrhosis 5. Hep C 6. nephrolothiasis 7. DM 8. BPH 9. HTN 10. CLL Plan - renal function is improving - renal workup negative so far - stool positive for occult blood - cont with fluids - keep arb on hold - etiology likely secondary to pre-renal disease and medication Dr Wells
[2017-09-15] MEDS ORDERED: SODIUM CHLORIDE 0.45% 1,000 ML IV SCH ×3 (19:42→21:00)
[2017-09-15] MEDS ORDERED: PT OWN MED DRAWER 7, Y5N ONE (20:21)
[2017-09-16] MEDS ORDERED: MELATONIN 1 MG TABLET PO SCH (01:45)
[2017-09-16 01:48] VITALS: BMI 26.1
[2017-09-16] MEDS ORDERED: MAG HYDROX/AL HYDROX/SIMETH 30 ML UNIT-DOSE CUP PO ONE (04:49)
[2017-09-16] MEDS: DOCUSATE SODIUM 100 MG CAPSULE (FP) PO SCH ×3 (05:06→21:57)
[2017-09-16] MEDS: SODIUM BICARBONATE 650 MG TABLET PO SCH ×3 (05:06→21:58)
--- NOTE | 2017-09-16 06:01 | HOSP ---
Physical Examination Vital Signs: Vital Signs Temperature 98.8 F 09/15/17 22:00 Pulse Rate 74 09/16/17 04:28 Respiratory Rate 20 09/16/17 04:28 Blood Pressure 135/53 09/16/17 04:28 O2 Sat by Pulse Oximetry (%) 95 09/15/17 21:00 Labs: CBC, BMP 09/15/17 05:30 09/15/17 05:30 Hospitalist Encounter Assessment: was paged by nurse: pt appeared to be breathing heavily and was c/o L sided CP located along L lower ribs/diaphragmatic region and epigastrum. pt was seen and examined at bedside by MD. pt said when he put the O2 NC back on he felt better. describes pain as burning and non radiating. no LE swelling or pain. no pleuritic chest pain. no n/v/d. He had heart attack in the past and said this does not feel like it (pressure and squeezing) Exam: vitals were stable w/ good O2 sat on NC. lungs had crackles b/l. cardiac, RRR w/ systolic murmur. chest wall non tender. abd benign. pulses 2+ b/l, no LE swelling or tenderness. EKG was ordered, mostly unchanged from prior. possibly some nonspecific T - wave abnormalities noted. Topronin ordered and came back negative. pt now saying discomfort is more in epigastrum and burning sensation/ discomfort is probably due to indigestion. gave mylanta which helped. Visit type - Emergency Visit Emergency Visit: Yes ED Registration Date: 09/11/17 Care time: The patient presented to the Emergency Department on the above date and was hospitalized for further evaluation of their emergent condition. - New Patient This patient is new to me today: Yes Date on this admission: 09/16/17 - Critical Care Critical Care patient: No
[2017-09-16] MEDS: INSULIN SLIDING SCALE (NOVOLOG) 1 VIAL SQ SCH ×5 (06:04→21:57)
[2017-09-16 07:50] LABS: HEMATOCRIT 24.5 % (35.4-49); MCH 29.6 pg (25.7-33.7); MCHC 32.6 g/dl (32.0-35.9); MEAN CELL VOLUME 90.8 fl (80-96); MEAN PLT VOLUME 8.2 fl (7.5-11.1); PLATELET COUNT 89 K/MM3 (134-434); RDW 16.1 % (11.9-15.9)
[2017-09-16 08:06] LABS: IGA IMMUNOGLOBULIN 36 mg/dL (61-437); IGG IMMUNOGLOBULIN 451 mg/dL (700-1600); IGM IMMUNOGLOBULIN 6 mg/dL (20-172)
[2017-09-16 08:12] LABS: CHLORIDE 112 mmol/L (98-107); POTASSIUM 4.1 mmol/L (3.5-5.1); SODIUM 142 mmol/L (136-145)
[2017-09-16] MEDS ORDERED: DEXTROSE 5%-WATER 100 ML IVPB ONE (08:13)
[2017-09-16 08:16] LABS: WHITE BLOOD COUNT 33.3 K/mm3 (4.0-10.0)
[2017-09-16 08:24] LABS: ANION GAP 13 (8-16); CO2 17 mmol/L (21-32); CREATININE 5.3 mg/dL (0.7-1.3); GLUCOSE,RANDOM 117 mg/dL (74-106); MAGNESIUM 2.8 mg/dL (1.8-2.4); PHOSPHOROUS 5.8 mg/dL (2.5-4.9)
[2017-09-16 09:07] LABS: PLATELET ESTIMATE DECREASED
[2017-09-16 09:08] LABS: BLOOD UREA NITROGEN 105 mg/dL (7-18)
[2017-09-16] MEDS ORDERED: MULTIVITAMINS (DAILY MVI) TABLET (FP) PO SCH (10:00)
[2017-09-16] MEDS ORDERED: NIFEdipine E.R 60 MG TABLET (UD) PO SCH (10:00)
[2017-09-16] MEDS ORDERED: RANITIDINE HCL 150 MG TABLET (FP) PO SCH (10:00)
[2017-09-16] MEDS ORDERED: CEFTRIAXONE 2 GM in DEXTROSE 5%-WATER 100 ML IVPB SCH (10:00)
[2017-09-16] MEDS ORDERED: RILPIVIRINE HCL 25 MG TABLET PO SCH (10:00)
[2017-09-16] MEDS: RALTEGRAVIR POTASSIUM 400 MG TAB PO SCH ×2 (10:19→21:57)
[2017-09-16] MEDS: DARUNAVIR ETHANOLATE 600 MG TAB PO SCH ×2 (10:19→21:57)
[2017-09-16] MEDS: CARVEDILOL 3.125 MG TABLET (FP) PO SCH ×2 (10:19→21:57)
[2017-09-16] MEDS: TAMSULOSIN HCL 0.4 MG CAP.ER.24H (FP) PO SCH ×2 (10:20→21:57)
[2017-09-16] MEDS: RITONAVIR 100 MG TABLET PO SCH ×2 (10:21→21:58)
[2017-09-16] MEDS: PSYLLIUM 5.85 GM PACKET PO SCH ×3 (10:21→21:58)
[2017-09-16] MEDS: POLYETHYLENE GLYCOL 3350 119 GM BTL PO SCH ×2 (10:21→10:34)
[2017-09-16] MEDS: HYDROCORTISONE 2.5% TOPICAL CREAM 30 GM TUBE PR SCH ×2 (10:25→21:45)
--- NOTE | 2017-09-16 10:28 | PN ---
Physical Exam: SUBJECTIVE: Patient seen and examined, no chest pain, palpitations, dyspnea, or dizziness currently. Dark stools but no BRBPR. Urinating well, tolerating po well, no new complaints. reports an episode of epigastric discomfort going up the chest with dyspnea overnight, that resoled with "gas" medication. No recurrence since, no similar prior history. OBJECTIVE: Vital Signs Period Temp Pulse Resp BP Sys/Ventura Pulse Ox Last 24 Hr 98.4 F-98.8 F 68-74 12-20 124-145/53-60 95 GENERAL: AAOX3, no acute distress Chest: CTAB, no rales or wheezing Abdomen:Soft, unchanged distension, NT throughout, positive bowel sounds Extremities: unchanged trace pedal edema Laboratory Results - last 24 hr 09/11/17 09/15/17 09/15/17 12:16 05:30 05:30 WBC RBC Hgb Hct MCV MCH MCHC RDW Plt Count MPV Absolute Neuts (auto) Neutrophils % Neutrophils % (Manual) 1.0 L Lymphocytes % Lymphocytes % (Manual) 93.0 H* Monocytes % (Manual) 1 L D Nucleated RBC % Smudge Cells Moderate Hypochromia 2+ Platelet Estimate Decreased Platelet Comment No clumping noted Poikilocytosis 1+ Sodium Potassium Chloride Carbon Dioxide Anion Gap BUN Creatinine Creat Clearance w eGFR POC Glucometer 158.19321 Random Glucose Calcium Phosphorus Magnesium Troponin I Stool Occult Blood IgG 451 L IgA 36 L IgM 6 L 09/15/17 09/15/17 09/15/17 11:09 15:30 18:22 WBC RBC Hgb Hct MCV MCH MCHC RDW Plt Count MPV Absolute Neuts (auto) Neutrophils % Neutrophils % (Manual) Lymphocytes % Lymphocytes % (Manual) Monocytes % (Manual) Nucleated RBC % Smudge Cells Hypochromia Platelet Estimate Platelet Comment Poikilocytosis Sodium Potassium Chloride Carbon Dioxide Anion Gap BUN Creatinine Creat Clearance w eGFR POC Glucometer 258 247 Random Glucose Calcium Phosphorus Magnesium Troponin I Stool Occult Blood Negative IgG IgA IgM 09/15/17 09/16/17 09/16/17 22:26 04:55 05:11 WBC RBC Hgb Hct MCV MCH MCHC RDW Plt Count MPV Absolute Neuts (auto) Neutrophils % Neutrophils % (Manual) Lymphocytes % Lymphocytes % (Manual) Monocytes % (Manual) Nucleated RBC % Smudge Cells Hypochromia Platelet Estimate Platelet Comment Poikilocytosis Sodium Potassium Chloride Carbon Dioxide Anion Gap BUN Creatinine Creat Clearance w eGFR POC Glucometer 140 116 Random Glucose Calcium Phosphorus Magnesium Troponin I 0.03 D Stool Occult Blood IgG IgA IgM 09/16/17 09/16/17 06:20 06:30 WBC 33.3 H* RBC 2.70 L Hgb 8.0 L Hct 24.5 L MCV 90.8 MCH 29.6 MCHC 32.6 RDW 16.1 H Plt Count 89 L MPV 8.2 Absolute Neuts (auto) 0.6 Neutrophils % No Result Required. Neutrophils % (Manual) Lymphocytes % No Result Required. Lymphocytes % (Manual) Monocytes % (Manual) Nucleated RBC % 0 Smudge Cells Hypochromia Platelet Estimate Platelet Comment Poikilocytosis Sodium 142 Potassium 4.1 Chloride 112 H Carbon Dioxide 17 L Anion Gap 13 BUN 105 H* Creatinine 5.3 H Creat Clearance w eGFR 10.98 POC Glucometer Random Glucose 117 H Calcium 8.0 L Phosphorus 5.8 H Magnesium 2.8 H Troponin I Stool Occult Blood IgG IgA IgM Active Medications Generic Name Dose Route Start Last Admin Trade Name Freq PRN Reason Stop Dose Admin Carvedilol 3.125 mg 09/15/17 22:00 09/15/17 22:17 Coreg - PO 3.125 mg BID [facility] Administration Darunavir 600 mg 09/15/17 22:00 09/15/17 22:22 Prezista - PO 600 mg BID [facility] Administration Docusate Sodium 100 mg 09/15/17 22:00 09/16/17 05:06 Colace - PO Not Given TID [facility] Hydrocortisone 1 applic 09/15/17 11:45 09/15/17 22:24 Anusol 2.5% Hc Cream - NM 1 applic BID [facility] Administration Ceftriaxone Sodium 2 gm/ 100 mls @ 200 mls/hr 09/16/17 10:00 Dextrose IVPB DAILY [facility] Protocol Metronidazole 500 mg in 100 mls @ 100 mls/hr 09/16/17 02:00 09/16/17 01:11 Flagyl 500mg Premixed Ivpb - IVPB 100 mls/hr Q8H-IV [facility] Administration Sodium Chloride 1,000 mls @ 42 mls/hr 09/15/17 21:00 09/15/17 20:15 1/2 Normal Saline IV 42 mls/hr ASDIR [facility] Administration Insulin Aspart 1 vial 09/15/17 22:00 09/16/17 06:04 Novolog Vial Sliding Scale - SQ Not Given ACHS [facility] Protocol Melatonin 3 mg 09/16/17 01:45 09/16/17 01:39 Melatonin PO 3 mg HS [facility] Administration Multivitamins/Minerals/Vitamin C 1 tab 09/16/17 10:00 Tab-A-Vit - PO DAILY [facility] Nifedipine 60 mg 09/16/17 10:00 Procardia Xl - PO DAILY [facility] Polyethylene Glycol 17 gm 09/16/17 10:00 Miralax (For Daily Use) - PO DAILY [facility] Psyllium Hydrophilic Mucilloid 5.85 gm 09/15/17 12:45 09/15/17 22:20 Metamucil (Sugar-Free) - PO Not Given BID [facility] Raltegravir 400 mg 09/15/17 22:00 09/15/17 22:21 Isentress - PO 400 mg BID [facility] Administration Ranitidine HCl 150 mg 09/16/17 10:00 Zantac - PO DAILY [facility] Ritonavir 100 mg 09/15/17 22:00 09/15/17 22:22 Norvir - PO 100 mg BID [facility] Administration Sodium Bicarbonate 650 mg 09/15/17 22:00 09/16/17 05:06 Sodium Bicarbonate - PO 650 mg TID [facility] Administration Tamsulosin HCl 0.4 mg 09/15/17 22:00 09/15/17 22:19 Flomax - PO 0.4 mg BID [facility] Administration EKG from this AM - NSR, T inversions in V4-V6, I, aVL, II (new from admission EKG) trop 0.03 ASSESSMENT/PLAN: 66 yom with extensive PMHx as above admitted with RICHY, hyperkalemia and urinary symptoms. -Chest pain with dyspnea overnight, Tn 0.03, EKG with lateral changes, resolved currently. -RICHY on CKD stage IV (baseline cr 2.2 in 06/2017), suspect multifactorial from poor oral intake, medications (self increase in lasix, resumption of metolazone , continuation of ARB) with urinary retention, hepatorenal syndrome on differential but low suspicion currently -Hyperkalemia from above, resolved -Mild Acute uncomplicated diverticulitis -Acute haemorrhoidal bleed/Constipation. -Anemia, suspect multifactorial from CKD, hemodilution, blood draws +/- occult GIB (no further dark stools) -Left perinephric stranding, clinically not consistent with pyelonephritis -HIV on HAART -CLL (recent WBC 50s) with lymphocytic predominance and absolute neutropenia -HIV On HAART -Treated HCV -Cirrhosis with portal hypertension -H/o IVDU (heroine/cocaine) -HTN -NIDDM -BPH -H/o NICM, last EF 65% in 2016 -Ex -smoker -Prolonged Qtc Plan: EKG with new lateral lead changes, Cycle CE, transfer back to telemetry. Currently symptom free. Cardiology consult with Dr. Sparks. Unlikely candidate for aggressive management given ongoing RICHY, thrombocytopenia, concerns for bleed unless acute concerns, Will defer to cardiology. Check CXR. Repeat EKG. Will transfuse 1 more unit PRBC in the setting chest pain and EKG changes. Monitor volume status closely. Serial EKGs to monitor QTC. Renal function and urine output continue to improve. Renal input appreciated. 1/2 NS at 42 ml/hr, IVF per renal, strict I/Os, hold lasix/ARB/metolazone. Renal dosing of medications. 2D echo noted. Ceftriaxone/flagyl day 6/, continue for now. Renal/bladder Ultrasound noted. ID input appreciated. HAART per ID. Neutropenic precautions. Oncology input appreciated. s/p 1 unit PRBC 09/14. Add psyllium. Continue bowel regimen and follow up with GI for haemorrhoidal bleed in the setting of cirrhosis. Dark stools but hemodynamics stable, will continue to monitor. Plan per GI. Trend platelets. Continue coreg and nifedipine as BP tolerated. DVTPPX with heparin,Plan discussed in detail with patient and all questions answered. Patient relays understanding and in agreement. Transfer to telemetry. Plan discussed with nursing, all questions answered. Visit type - Emergency Visit Emergency Visit: No - New Patient This patient is new to me today: Yes Date on this admission: 09/16/17 - Critical Care Critical Care patient: No - Discharge Referral Referred to [facility] No
--- NOTE | 2017-09-16 12:30 | PN ---
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 Pt also reports increased COREA and lethargy since Sun. - Current Medication List Current Medications: Active Medications Carvedilol (Coreg -) 3.125 mg PO BID [facility] Last Admin: 09/16/17 10:19 Dose: 3.125 mg Darunavir (Prezista -) 600 mg PO BID [facility] Last Admin: 09/16/17 10:19 Dose: 600 mg Docusate Sodium (Colace -) 100 mg PO TID [facility] Last Admin: 09/16/17 05:06 Dose: Not Given Hydrocortisone (Anusol 2.5% Hc Cream -) 1 applic [place] BID [facility] Last Admin: 09/16/17 10:25 Dose: 1 applic Ceftriaxone Sodium 2 gm/ (Dextrose) 100 mls @ 200 mls/hr IVPB DAILY [facility]; Protocol Last Admin: 09/16/17 10:22 Dose: 200 mls/hr Metronidazole (Flagyl 500mg Premixed Ivpb -) 500 mg in 100 mls @ 100 mls/hr IVPB Q8H-IV [facility] Last Admin: 09/16/17 10:18 Dose: 100 mls/hr Sodium Chloride (1/2 Normal Saline) 1,000 mls @ 42 mls/hr IV ASDIR [facility] Last Admin: 09/15/17 20:15 Dose: 42 mls/hr Insulin Aspart (Novolog Vial Sliding Scale -) 1 vial SQ ACHS [facility]; Protocol Last Admin: 09/16/17 12:13 Dose: Not Given Melatonin (Melatonin) 3 mg PO HS [facility] Last Admin: 09/16/17 01:39 Dose: 3 mg Multivitamins/Minerals/Vitamin C (Tab-A-Vit -) 1 tab PO DAILY [facility] Last Admin: 09/16/17 10:20 Dose: 1 tab Nifedipine (Procardia Xl -) 60 mg PO DAILY [facility] Last Admin: 09/16/17 10:20 Dose: 60 mg Polyethylene Glycol (Miralax (For Daily Use) -) 17 gm PO DAILY [facility] Last Admin: 09/16/17 10:34 Dose: Not Given Psyllium Hydrophilic Mucilloid (Metamucil (Sugar-Free) -) 5.85 gm PO BID [facility] Last Admin: 09/16/17 10:34 Dose: Not Given Raltegravir (Isentress -) 400 mg PO BID [facility] Last Admin: 09/16/17 10:19 Dose: 400 mg Ranitidine HCl (Zantac -) 150 mg PO DAILY [facility] Last Admin: 09/16/17 10:20 Dose: 150 mg Ritonavir (Norvir -) 100 mg PO BID [facility] Last Admin: 09/16/17 10:21 Dose: 100 mg Sodium Bicarbonate (Sodium Bicarbonate -) 650 mg PO TID [facility] Last Admin: 09/16/17 05:06 Dose: 650 mg Tamsulosin HCl (Flomax -) 0.4 mg PO BID [facility] Last Admin: 09/16/17 10:20 Dose: 0.4 mg - Objective Vital Signs: Vital Signs Temperature 98.5 F 09/16/17 10:00 Pulse Rate 77 09/16/17 10:00 Respiratory Rate 18 09/16/17 10:00 Blood Pressure 153/61 09/16/17 10:00 O2 Sat by Pulse Oximetry (%) 95 09/15/17 21:00 Labs: CBC, BMP 09/16/17 06:20 09/16/17 06:30 INR, PTT INR 1.12 (0.83-1.09) 09/11/17 08:05
--- NOTE | 2017-09-16 12:32 | CON.CARD ---
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 Pt also reports increased COREA and lethargy since Fri. - History Source History Provided By: Patient, Medical Record - Past Medical History Cardio/Vascular: Yes: HTN Hepatobiliary: Yes: Cirrhosis, Hepatitis C Renal/: Yes: Renal Inusuff, Other (hesitancy, intermittemncy, poor stream) Infectious Disease: Yes: HIV Endocrine: Yes: Diabetes Mellitus Additional Medical History: lymphocytic leuckemia - Past Surgical History Past Surgical History: Yes: None - Alcohol/Substance Use Hx Alcohol Use: No History of Substance Use: reports: Cocaine (quit x 25 yrs), Heroin - Smoking History Smoking history: Former smoker Have you smoked in the past 12 months: No Aproximately how many cigarettes per day: 0 If you are a former smoker, when did you quit?: > 25 yrs ago - Social History Usual Living Arrangement: Alone ADL: Independent History of Recent Travel: No Home Medications - Allergies Allergies/Adverse Reactions: Allergies Allergy/AdvReac Type Severity Reaction Status Date / Time lactose AdvReac Verified 09/16/17 00:16 - Home Medications Home Medications: Ambulatory Orders Ritonavir [Norvir] 100 mg PO BID #0 tablet 01/07/13 Allopurinol [Zyloprim -] 100 mg PO DAILY 09/01/15 Carvedilol [Coreg -] 6.25 mg PO DAILY 09/01/15 Furosemide [Lasix -] 80 mg PO DAILY 09/01/15 Glipizide 5 mg PO BID 09/01/15 Lidocaine 5% Patch [Lidoderm Patch -] 1 patch TP DAILY 09/01/15 Multivitamins [Tab-A-Vit -] 1 tab PO DAILY 09/01/15 Nifedipine [Nifedical Xl] 60 mg PO DAILY 09/01/15 Raltegravir [Isentress -] 400 mg PO BID 09/01/15 Ranitidine HCl [Zantac] 150 mg PO DAILY 09/01/15 Rilpivirine HCl [Edurant] 25 mg PO DAILY 09/01/15 Darunavir Ethanolate [Prezista -] 600 mg PO BID 07/09/16 Metolazone 2.5 mg PO Q2D 09/11/17 Family Disease History - Family Disease History Family Disease History: Heart Disease: Father ( of [place] at 55, ETOH), Other: Father, Mother (hypertension), Sister (hypertension) Review of Systems - Review of Systems Constitutional: reports: No Symptoms Eyes: reports: No Symptoms HENT: reports: No Symptoms Neck: reports: No Symptoms Cardiovascular: reports: Chest Pain (atypical - described per patient as GAS relived with nallox and burping) Gastrointestinal: reports: No Symptoms Genitourinary: reports: No Symptoms Breasts: reports: No Symptoms Reported Musculoskeletal: reports: No Symptoms Integumentary: reports: No Symptoms Neurological: reports: No Symptoms Endocrine: reports: No Symptoms Hematology/Lymphatic: reports: No Symptoms Psychiatric: reports: No Symptoms Vital Signs: Vital Signs Temperature 98.5 F 09/16/17 10:00 Pulse Rate 77 09/16/17 10:00 Respiratory Rate 18 09/16/17 10:00 Blood Pressure 153/61 09/16/17 10:00 O2 Sat by Pulse Oximetry (%) 95 09/15/17 21:00 Constitutional: Yes: Well Nourished, No Distress, Calm Eyes: Yes: WNL, Conjunctiva Clear, EOM Intact HENT: Yes: WNL, Atraumatic, Normocephalic Neck: Yes: WNL, Supple, Trachea Midline Respiratory: Yes: WNL, Regular, CTA Bilaterally Gastrointestinal: Yes: Ascites Renal/: Yes: WNL Cardiovascular: Yes: WNL, Regular Rate and Rhythm Musculoskeletal: Yes: WNL Extremities: Yes: WNL Edema: Yes Edema: LLE: 1+, RLE: 1+ Integumentary: Yes: WNL Neurological: Yes: WNL, Alert, Oriented ...Motor Strength: WNL Psychiatric: Yes: WNL, Alert, Oriented - Other Data Labs, Other Data: CBC, BMP 09/16/17 06:20 09/16/17 06:30 INR, PTT INR 1.12 (0.83-1.09) 09/11/17 08:05 Troponin, BNP 09/16/17 09/16/17 04:55 11:18 Troponin I 0.03 D 0.03 Troponin, BNP 09/16/17 09/16/17 04:55 11:18 Troponin I 0.03 D 0.03 Imaging - Results Chest X-ray: Image Reviewed (atelectasis) EKG: Image Reviewed (sr lvh rep abn) Problem List - Problems (1) Abdominal pain Code(s): R10.9 - UNSPECIFIED ABDOMINAL PAIN (2) Acute kidney failure Code(s): N17.9 - ACUTE KIDNEY FAILURE, UNSPECIFIED (3) Acute urinary retention Code(s): R33.8 - OTHER RETENTION OF URINE (4) CLL (chronic lymphocytic leukemia) Code(s): C91.90 - LYMPHOID LEUKEMIA, UNSPECIFIED NOT HAVING ACHIEVED REMISSION (5) Chronic kidney disease Code(s): N18.9 - CHRONIC KIDNEY DISEASE, UNSPECIFIED (6) Cirrhosis of liver Code(s): K74.60 - UNSPECIFIED CIRRHOSIS OF LIVER (7) Diverticulitis Code(s): K57.92 - DVTRCLI OF INTEST, PART UNSP, W/O PERF OR ABSCESS W/O BLEED (8) HIV 2 (human immunodeficiency virus type 2) Code(s): B97.35 - HIV 2 THE CAUSE OF DISEASES CLASSIFIED ELSEWHERE (9) Liver cirrhosis Code(s): K74.60 - UNSPECIFIED CIRRHOSIS OF LIVER (10) Renal insufficiency Code(s): N28.9 - DISORDER OF KIDNEY AND URETER, UNSPECIFIED (11) Status post insertion of Lara catheter Code(s): Z98.890 - OTHER SPECIFIED POSTPROCEDURAL STATES (12) Angina Code(s): I20.9 - ANGINA PECTORIS, UNSPECIFIED (13) Azotemia Code(s): R79.89 - OTHER SPECIFIED ABNORMAL FINDINGS OF BLOOD CHEMISTRY (14) Chronic hepatitis C Code(s): B18.2 - CHRONIC VIRAL HEPATITIS C (15) DM Diabetes mellitus type 2 Code(s): E11.9 - TYPE 2 DIABETES MELLITUS WITHOUT COMPLICATIONS (16) Human immunodeficiency virus (HIV) seropositivity Code(s): Z21 - ASYMPTOMATIC HUMAN IMMUNODEFICIENCY VIRUS INFECTION STATUS (17) Anemia Code(s): D64.9 - ANEMIA, UNSPECIFIED (18) Bronchitis Code(s): J40 - BRONCHITIS, NOT SPECIFIED ACUTE OR CHRONIC (20) Colitis Code(s): K52.9 - NONINFECTIVE GASTROENTERITIS AND COLITIS, UNSPECIFIED (21) Cough Code(s): R05 - COUGH (22) DVT prophylaxis Code(s): CGC9712 - (23) Fever Code(s): R50.9 - FEVER, UNSPECIFIED (24) Fever of unknown origin (FUO) Code(s): R50.9 - FEVER, UNSPECIFIED (25) Influenza A Code(s): J10.1 - FLU DUE TO OTH IDENT INFLUENZA VIRUS W OTH RESP MANIFEST (26) Kidney stone on left side Code(s): N20.0 - CALCULUS OF KIDNEY (27) Lymphadenopathy of right cervical region Code(s): R59.0 - LOCALIZED ENLARGED LYMPH NODES (28) Muscle spasms of neck Code(s): M62.838 - OTHER MUSCLE SPASM (29) Nasal congestion Code(s): R09.81 - NASAL CONGESTION (30) Prerenal azotemia Code(s): N17.9 - ACUTE KIDNEY FAILURE, UNSPECIFIED (31) Prostatism Code(s): N40.0 - BENIGN PROSTATIC HYPERPLASIA WITHOUT LOWER URINRY TRACT SYMP (32) Recurrent nephrolithiasis Code(s): N20.0 - CALCULUS OF KIDNEY (33) Transaminitis Code(s): R74.0 - NONSPEC ELEV OF LEVELS OF TRANSAMNS & LACTIC ACID DEHYDRGNSE (34) Upper respiratory infection Code(s): J06.9 - ACUTE UPPER RESPIRATORY INFECTION, UNSPECIFIED Qualifiers: URI type: unspecified viral URI Qualified Code(s): J06.9 - Acute upper respiratory infection, unspecified Assessment/Plan CP sx 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
--- NOTE | 2017-09-16 12:35 | EKG ---
Test Reason : Blood Pressure : / mmHG Vent. Rate : 078 BPM Atrial Rate : 078 BPM P-R Int : 174 ms QRS Dur : 118 ms QT Int : 432 ms P-R-T Axes : 072 034 078 degrees QTc Int : 492 ms NORMAL SINUS RHYTHM LEFT VENTRICULAR HYPERTROPHY WITH QRS WIDENING T WAVE ABNORMALITY, CONSIDER INFEROLATERAL ISCHEMIA vs lvh strain pattern PROLONGED QT ABNORMAL ECG WHEN COMPARED WITH ECG OF 16-SEP-2017 04:47, NO SIGNIFICANT CHANGE WAS FOUND Confirmed by DIEGO ONEIL MD ([id number]) on 09/16/2017 12:35:30 PM Referred By: Confirmed By:DIEGO ONEIL MD
--- NOTE | 2017-09-16 12:36 | EKG ---
Test Reason : Blood Pressure : / mmHG Vent. Rate : 073 BPM Atrial Rate : 073 BPM P-R Int : 178 ms QRS Dur : 108 ms QT Int : 450 ms P-R-T Axes : 063 023 018 degrees QTc Int : 495 ms NORMAL SINUS RHYTHM NONSPECIFIC T WAVE ABNORMALITY lvh repolarization abnormalities PROLONGED QT ABNORMAL ECG WHEN COMPARED WITH ECG OF 11-SEP-2017 07:38, NONSPECIFIC T WAVE ABNORMALITY, WORSE IN INFERIOR LEADS T WAVE INVERSION NOW EVIDENT IN LATERAL LEADS Confirmed by DIEGO ONEIL MD ([id number]) on 09/16/2017 12:36:06 PM Referred By: Confirmed By:DIEGO ONEIL MD
--- NOTE | 2017-09-16 14:33 | PN ---
Progress Note, Physician History of Present Illness: Pt seen and examined at bedside. He is awake and alert. He denies shortness of breath. - Current Medication List Current Medications: Active Medications Carvedilol (Coreg -) 3.125 mg PO BID [facility] Last Admin: 09/16/17 10:19 Dose: 3.125 mg Darunavir (Prezista -) 600 mg PO BID [facility] Last Admin: 09/16/17 10:19 Dose: 600 mg Docusate Sodium (Colace -) 100 mg PO TID [facility] Last Admin: 09/16/17 13:52 Dose: Not Given Hydrocortisone (Anusol 2.5% Hc Cream -) 1 applic [place] BID [facility] Last Admin: 09/16/17 10:25 Dose: 1 applic Ceftriaxone Sodium 2 gm/ (Dextrose) 100 mls @ 200 mls/hr IVPB DAILY [facility]; Protocol Last Admin: 09/16/17 10:22 Dose: 200 mls/hr Metronidazole (Flagyl 500mg Premixed Ivpb -) 500 mg in 100 mls @ 100 mls/hr IVPB Q8H-IV [facility] Last Admin: 09/16/17 10:18 Dose: 100 mls/hr Sodium Chloride (1/2 Normal Saline) 1,000 mls @ 42 mls/hr IV ASDIR [facility] Last Admin: 09/15/17 20:15 Dose: 42 mls/hr Insulin Aspart (Novolog Vial Sliding Scale -) 1 vial SQ ACHS [facility]; Protocol Last Admin: 09/16/17 12:13 Dose: Not Given Melatonin (Melatonin) 3 mg PO HS [facility] Last Admin: 09/16/17 01:39 Dose: 3 mg Multivitamins/Minerals/Vitamin C (Tab-A-Vit -) 1 tab PO DAILY [facility] Last Admin: 09/16/17 10:20 Dose: 1 tab Nifedipine (Procardia Xl -) 60 mg PO DAILY [facility] Last Admin: 09/16/17 10:20 Dose: 60 mg Polyethylene Glycol (Miralax (For Daily Use) -) 17 gm PO DAILY [facility] Last Admin: 09/16/17 10:34 Dose: Not Given Psyllium Hydrophilic Mucilloid (Metamucil (Sugar-Free) -) 5.85 gm PO BID [facility] Last Admin: 09/16/17 10:34 Dose: Not Given Raltegravir (Isentress -) 400 mg PO BID [facility] Last Admin: 09/16/17 10:19 Dose: 400 mg Ranitidine HCl (Zantac -) 150 mg PO DAILY [facility] Last Admin: 09/16/17 10:20 Dose: 150 mg Ritonavir (Norvir -) 100 mg PO BID [facility] Last Admin: 09/16/17 10:21 Dose: 100 mg Sodium Bicarbonate (Sodium Bicarbonate -) 650 mg PO TID [facility] Last Admin: 09/16/17 14:03 Dose: 650 mg Tamsulosin HCl (Flomax -) 0.4 mg PO BID [facility] Last Admin: 09/16/17 10:20 Dose: 0.4 mg - Objective Vital Signs: Vital Signs Temperature 98.5 F 09/16/17 10:00 Pulse Rate 77 09/16/17 10:00 Respiratory Rate 18 09/16/17 10:00 Blood Pressure 153/61 09/16/17 10:00 O2 Sat by Pulse Oximetry (%) 95 09/15/17 21:00 Constitutional: Yes: Calm Eyes: Yes: Conjunctiva Clear HENT: Yes: Atraumatic Cardiovascular: Yes: S1, S2 Respiratory: Yes: CTA Bilaterally Gastrointestinal: Yes: Soft Genitourinary: Yes: WNL Musculoskeletal: Yes: WNL Edema: Yes Edema: LLE: 1+, RLE: 1+ Neurological: Yes: Oriented Psychiatric: Yes: Oriented Labs: CBC, BMP 09/16/17 06:20 09/16/17 06:30 INR, PTT INR 1.12 (0.83-1.09) 09/11/17 08:05 Problem List - Problems (1) Acute urinary retention Code(s): R33.8 - OTHER RETENTION OF URINE (2) Cirrhosis of liver Code(s): K74.60 - UNSPECIFIED CIRRHOSIS OF LIVER (3) Renal insufficiency Code(s): N28.9 - DISORDER OF KIDNEY AND URETER, UNSPECIFIED (4) Chronic hepatitis C Code(s): B18.2 - CHRONIC VIRAL HEPATITIS C (5) Human immunodeficiency virus (HIV) seropositivity Code(s): Z21 - ASYMPTOMATIC HUMAN IMMUNODEFICIENCY VIRUS INFECTION STATUS Assessment/Plan Current Medications Generic Name Dose Route Start Last Admin Trade Name Freq PRN Reason Stop Dose Admin Carvedilol 3.125 mg 09/15/17 22:00 09/16/17 10:19 Coreg - PO 3.125 mg BID [facility] Administration Darunavir 600 mg 09/15/17 22:00 09/16/17 10:19 Prezista - PO 600 mg BID [facility] Administration Docusate Sodium 100 mg 09/15/17 22:00 09/16/17 13:52 Colace - PO Not Given TID [facility] Hydrocortisone 1 applic 09/15/17 11:45 09/16/17 10:25 Anusol 2.5% Hc Cream - OR 1 applic BID [facility] Administration Ceftriaxone Sodium 2 gm/ 100 mls @ 200 mls/hr 09/16/17 10:00 09/16/17 10:22 Dextrose IVPB 200 mls/hr DAILY [facility] Administration Protocol Metronidazole 500 mg in 100 mls @ 100 mls/hr 09/16/17 02:00 09/16/17 10:18 Flagyl 500mg Premixed Ivpb - IVPB 100 mls/hr Q8H-IV [facility] Administration Sodium Chloride 1,000 mls @ 42 mls/hr 09/15/17 21:00 09/15/17 20:15 1/2 Normal Saline IV 42 mls/hr ASDIR [facility] Administration Insulin Aspart 1 vial 09/15/17 22:00 09/16/17 12:13 Novolog Vial Sliding Scale - SQ Not Given ACHS [facility] Protocol Melatonin 3 mg 09/16/17 01:45 09/16/17 01:39 Melatonin PO 3 mg HS [facility] Administration Multivitamins/Minerals/Vitamin C 1 tab 09/16/17 10:00 09/16/17 10:20 Tab-A-Vit - PO 1 tab DAILY [facility] Administration Nifedipine 60 mg 09/16/17 10:00 09/16/17 10:20 Procardia Xl - PO 60 mg DAILY [facility] Administration Polyethylene Glycol 17 gm 09/16/17 10:00 09/16/17 10:34 Miralax (For Daily Use) - PO Not Given DAILY [facility] Psyllium Hydrophilic Mucilloid 5.85 gm 09/15/17 12:45 09/16/17 10:34 Metamucil (Sugar-Free) - PO Not Given BID [facility] Raltegravir 400 mg 09/15/17 22:00 09/16/17 10:19 Isentress - PO 400 mg BID [facility] Administration Ranitidine HCl 150 mg 09/16/17 10:00 09/16/17 10:20 Zantac - PO 150 mg DAILY [facility] Administration Ritonavir 100 mg 09/15/17 22:00 09/16/17 10:21 Norvir - PO 100 mg BID [facility] Administration Sodium Bicarbonate 650 mg 09/15/17 22:00 09/16/17 14:03 Sodium Bicarbonate - PO 650 mg TID [facility] Administration Tamsulosin HCl 0.4 mg 09/15/17 22:00 09/16/17 10:20 Flomax - PO 0.4 mg BID [facility] Administration Impression 1. RICHY 2. 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 HIV 4. liver cirrhosis 5. Hep C 6. nephrolothiasis 7. DM 8. BPH 9. HTN 10. CLL Plan - will hold fluids as he is getting blood products - renal function is improving - repeat labs in am - renal workup in progress, neg so far - keep arb on hold Dr Wells
[2017-09-16] MEDS ORDERED: PT OWN MED DRAWER 7, Y5N ONE ×2 (15:13→20:35)
[2017-09-16] MEDS ORDERED: SODIUM CHLORIDE 0.45% 1,000 ML IV SCH (19:32)
[2017-09-16] MEDS: MELATONIN 1 MG TABLET PO SCH (23:10)
[2017-09-17] MEDS: SODIUM BICARBONATE 650 MG TABLET PO SCH ×3 (05:36→21:02)
[2017-09-17] MEDS: DOCUSATE SODIUM 100 MG CAPSULE (FP) PO SCH ×3 (05:37→21:03)
[2017-09-17] MEDS: INSULIN SLIDING SCALE (NOVOLOG) 1 VIAL SQ SCH ×4 (06:41→21:03)
[2017-09-17 06:48] LABS: HEMATOCRIT 28.1 % (35.4-49); HEMOGLOBIN 9.3 GM/dL (11.7-16.9); LYMPH % 97.1 % (8-40); MCH 29.7 pg (25.7-33.7); MEAN PLT VOLUME 8.1 fl (7.5-11.1); MONO % 0.8 % (3.8-10.2); NEUT % 2.1 % (42.8-82.8); PLATELET COUNT 95 K/MM3 (134-434); RBC 3.12 M/mm3 (4.00-5.60); RDW 16.3 % (11.9-15.9)
[2017-09-17 07:27] LABS: ALBUMIN 3.1 g/dl (3.4-5.0); ANION GAP 11 (8-16); BILIRUBIN,TOTAL 0.2 mg/dL (0.2-1.0); BLOOD UREA NITROGEN 100 mg/dL (7-18); CALCIUM 7.9 mg/dL (8.5-10.1); CHLORIDE 113 mmol/L (98-107); CO2 19 mmol/L (21-32); CREATININE 4.8 mg/dL (0.7-1.3); GLUCOSE,RANDOM 115 mg/dL (74-106); MAGNESIUM 2.7 mg/dL (1.8-2.4); PHOSPHOROUS 5.2 mg/dL (2.5-4.9); POTASSIUM 4.3 mmol/L (3.5-5.1); SGOT/AST 22 U/L (15-37); SGPT/ALT 25 U/L (12-78); SODIUM 143 mmol/L (136-145)
[2017-09-17 07:28] LABS: ALK PHOS 54 U/L (45-117); TOT PROT 5.4 g/dl (6.4-8.2)
--- NOTE | 2017-09-17 07:45 | PN ---
Teaching Attending Note Name of Resident: Irma Landa ATTENDING PHYSICIAN STATEMENT I saw and evaluated the patient. I reviewed the resident's note and discussed the case with the resident. I agree with the resident's findings and plan as documented with exceptions below. SUBJECTIVE: Patient seen and examined. no further chest or epigastric pain or dyspnea. No abdominal or urinary symptoms. Tolerating diet well. OBJECTIVE: Vital Signs Period Temp Pulse Resp BP Sys/Ventura Pulse Ox Last 24 Hr 97.9 F-98.7 F 69-77 18-20 123-153/53-61 95 Intake & Output 09/14/17 09/15/17 09/16/17 09/17/17 23:59 23:59 23:59 23:59 Intake Total 2386 1696 1030 514 Output Total 1500 3450 1800 1400 Balance 435 -1755 -770 -946 Weight 183 lb 6.4 oz 182 lb General: lying in bed in no acute distress Chest:CTAB, no rales or wheezing Abdomen:Soft, unchanged distension, NT throughout, positive bowel sounds Extremities: 2+ pedal pitting edema Active Medications Carvedilol (Coreg -) 3.125 mg PO BID [facility] Last Admin: 09/16/17 21:57 Dose: 3.125 mg Darunavir (Prezista -) 600 mg PO BID [facility] Last Admin: 09/16/17 21:57 Dose: 600 mg Docusate Sodium (Colace -) 100 mg PO TID [facility] Last Admin: 09/17/17 05:37 Dose: 100 mg Hydrocortisone (Anusol 2.5% Hc Cream -) 1 applic [place] BID [facility] Last Admin: 09/16/17 21:45 Dose: 1 applic Ceftriaxone Sodium 2 gm/ (Dextrose) 100 mls @ 200 mls/hr IVPB DAILY [facility]; Protocol Metronidazole (Flagyl 500mg Premixed Ivpb -) 500 mg in 100 mls @ 100 mls/hr IVPB Q8H-IV [facility] Last Admin: 09/17/17 01:12 Dose: 100 mls/hr Sodium Chloride (1/2 Normal Saline) 1,000 mls @ 42 mls/hr IV [facility] Last Admin: 09/16/17 21:39 Dose: 42 mls/hr Insulin Aspart (Novolog Vial Sliding Scale -) 1 vial SQ ACHS [facility]; Protocol Last Admin: 09/17/17 06:41 Dose: Not Given Melatonin (Melatonin) 3 mg PO HS [facility] Last Admin: 09/16/17 23:10 Dose: 3 mg Multivitamins/Minerals/Vitamin C (Tab-A-Vit -) 1 tab PO DAILY [facility] Nifedipine (Procardia Xl -) 60 mg PO DAILY [facility] Polyethylene Glycol (Miralax (For Daily Use) -) 17 gm PO DAILY [facility] Psyllium Hydrophilic Mucilloid (Metamucil (Sugar-Free) -) 5.85 gm PO BID [facility] Last Admin: 09/16/17 21:58 Dose: 5.85 gm Raltegravir (Isentress -) 400 mg PO BID [facility] Last Admin: 09/16/17 21:57 Dose: 400 mg Ranitidine HCl (Zantac -) 150 mg PO DAILY [facility] Ritonavir (Norvir -) 100 mg PO BID [facility] Last Admin: 09/16/17 21:58 Dose: 100 mg Sodium Bicarbonate (Sodium Bicarbonate -) 650 mg PO TID [facility] Last Admin: 09/17/17 05:36 Dose: 650 mg Tamsulosin HCl (Flomax -) 0.4 mg PO BID [facility] Last Admin: 09/16/17 21:57 Dose: 0.4 mg 09/14/17 09/16/17 09/16/17 10:05 06:20 06:30 WBC 33.3 H* RBC 2.70 L Hgb 8.0 L Hct 24.5 L MCV 90.8 MCHC 32.6 RDW 16.1 H Plt Count 89 L Neutrophils % No Result Required. Lymphocytes % No Result Required. Monocytes % Eosinophils % Basophils % Sodium 142 Potassium 4.1 Chloride 112 H Carbon Dioxide 17 L Anion Gap 13 BUN 105 H* Creatinine 5.3 H Blood Type B NEGATIVE Antibody Screen Negative 09/17/17 05:30 WBC 34.0 H* RBC 3.12 L Hgb 9.3 L Hct 28.1 L MCV 90.0 MCHC 33.0 RDW 16.3 H Plt Count 95 L Neutrophils % 2.1 L Lymphocytes % 97.1 H Monocytes % 0.8 L D Eosinophils % 0.0 Basophils % 0.0 Sodium Potassium Chloride Carbon Dioxide Anion Gap BUN Creatinine Blood Type Antibody Screen 09/11/17 07:48 Blood Culture - Final Blood - Peripheral Venous NO GROWTH AFTER 5 DAYS INCUBATION 09/11/17 08:05 Blood Culture - Final Blood - Peripheral Venous NO GROWTH AFTER 5 DAYS INCUBATION 09/11/17 05:45 Urine Culture - Final Urine - Urine - Catheterized NO GROWTH OBTAINED ASSESSMENT AND PLAN: 66 yom with extensive PMHx as above admitted with RICHY, hyperkalemia and urinary symptoms. -Chest pain with dyspnea 09/16, EKG with lateral changes, resolved currently. -RICHY on CKD stage IV (baseline cr 2.2 in 06/2017), suspect multifactorial from poor oral intake, medications (self increase in lasix, resumption of metolazone , continuation of ARB) with urinary retention, hepatorenal syndrome on differential but low suspicion currently -Hyperkalemia from above, resolved -Mild Acute uncomplicated diverticulitis -Acute haemorrhoidal bleed/Constipation. -Anemia, suspect multifactorial from CKD, hemodilution, blood draws +/- occult GIB (no further dark stools) -Left perinephric stranding, clinically not consistent with pyelonephritis -HIV on HAART -CLL (recent WBC 50s) with lymphocytic predominance and absolute neutropenia -HIV On HAART -Treated HCV -Cirrhosis with portal hypertension -H/o IVDU (heroine/cocaine) -HTN -NIDDM -BPH -H/o NICM, last EF 65% in 2016 -Ex -smoker -Prolonged Qtc Plan: EKG with new lateral lead changes, tn neg. Repeat 2D echo noted, no new WMA. Cardiology input appreciated. ASA when ok from oncology perspective. Will need stress test once active renal concerns have improved, likely outpatient, if no new concerns. s/p total 2 units PRBC (09/14 and 09/16), appropriate response. Interval EKGs to monitor QTC. Renal function and urine output continue to improve. Now with worsening pedal edema. Renal input appreciated. IVF dced, lasix trial per renal. Strict I/Os, hold lasix/ARB/metolazone. Renal dosing of medications. s/p 7 days of ceftraixone/flagyl, discuss with ID for discontinuation Renal/bladder Ultrasound noted. ID input appreciated. HAART per ID. Neutropenic precautions. Oncology input appreciated. Psyllium. Continue bowel regimen and follow up with GI for haemorrhoidal bleed in the setting of cirrhosis. Dark stools but hemodynamics stable, will continue to monitor. Plan per GI. Trend platelets. Continue coreg and nifedipine as BP tolerated. DVTPPX with heparin, Plan discussed in detail with patient and all questions answered. Patient relays understanding and in agreement.
[2017-09-17] MEDS ORDERED: DEXTROSE 5%-WATER 100 ML IVPB ONE (09:15)
[2017-09-17] MEDS: MULTIVITAMINS (DAILY MVI) TABLET (FP) PO SCH (09:39)
[2017-09-17] MEDS: NIFEdipine E.R 60 MG TABLET (UD) PO SCH (09:40)
[2017-09-17] MEDS: CARVEDILOL 3.125 MG TABLET (FP) PO SCH ×2 (09:40→21:03)
[2017-09-17] MEDS: RANITIDINE HCL 150 MG TABLET (FP) PO SCH (09:40)
[2017-09-17] MEDS: TAMSULOSIN HCL 0.4 MG CAP.ER.24H (FP) PO SCH ×2 (09:40→21:03)
[2017-09-17] MEDS: RILPIVIRINE HCL 25 MG TABLET PO SCH (09:42)
[2017-09-17] MEDS: DARUNAVIR ETHANOLATE 600 MG TAB PO SCH ×2 (09:42→21:03)
[2017-09-17] MEDS: RALTEGRAVIR POTASSIUM 400 MG TAB PO SCH ×2 (09:43→21:03)
[2017-09-17] MEDS: RITONAVIR 100 MG TABLET PO SCH ×2 (09:43→21:03)
[2017-09-17] MEDS: POLYETHYLENE GLYCOL 3350 119 GM BTL PO SCH (09:44)
[2017-09-17] MEDS ORDERED: CEFTRIAXONE 2 GM in DEXTROSE 5%-WATER 100 ML IVPB SCH (10:00)
[2017-09-17] MEDS: HYDROCORTISONE 2.5% TOPICAL CREAM 30 GM TUBE PR SCH ×2 (11:57→21:08)
--- NOTE | 2017-09-17 12:00 | PN ---
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 Pt also reports increased COREA and lethargy since Sun. - Current Medication List Current Medications: Active Medications Carvedilol (Coreg -) 3.125 mg PO BID [facility] Last Admin: 09/17/17 09:40 Dose: 3.125 mg Darunavir (Prezista -) 600 mg PO BID [facility] Last Admin: 09/17/17 09:42 Dose: 600 mg Docusate Sodium (Colace -) 100 mg PO TID [facility] Last Admin: 09/17/17 05:37 Dose: 100 mg Hydrocortisone (Anusol 2.5% Hc Cream -) 1 applic GA BID [facility] Last Admin: 09/16/17 21:45 Dose: 1 applic Ceftriaxone Sodium 2 gm/ (Dextrose) 100 mls @ 200 mls/hr IVPB DAILY [facility]; Protocol Last Admin: 09/17/17 09:41 Dose: 200 mls/hr Metronidazole (Flagyl 500mg Premixed Ivpb -) 500 mg in 100 mls @ 100 mls/hr IVPB Q8H-IV [facility] Last Admin: 09/17/17 09:44 Dose: 100 mls/hr Sodium Chloride (1/2 Normal Saline) 1,000 mls @ 42 mls/hr IV ASDIR [facility] Last Admin: 09/16/17 21:39 Dose: 42 mls/hr Insulin Aspart (Novolog Vial Sliding Scale -) 1 vial SQ ACHS [facility]; Protocol Last Admin: 09/17/17 06:41 Dose: Not Given Melatonin (Melatonin) 3 mg PO HS [facility] Last Admin: 09/16/17 23:10 Dose: 3 mg Multivitamins/Minerals/Vitamin C (Tab-A-Vit -) 1 tab PO DAILY [facility] Last Admin: 09/17/17 09:39 Dose: 1 tab Nifedipine (Procardia Xl -) 60 mg PO DAILY [facility] Last Admin: 09/17/17 09:40 Dose: 60 mg Polyethylene Glycol (Miralax (For Daily Use) -) 17 gm PO DAILY [facility] Last Admin: 09/17/17 09:44 Dose: 17 grams Psyllium Hydrophilic Mucilloid (Metamucil (Sugar-Free) -) 5.85 gm PO BID [facility] Last Admin: 09/16/17 21:58 Dose: 5.85 gm Raltegravir (Isentress -) 400 mg PO BID [facility] Last Admin: 09/17/17 09:43 Dose: 400 mg Ranitidine HCl (Zantac -) 150 mg PO DAILY [facility] Last Admin: 09/17/17 09:40 Dose: 150 mg Ritonavir (Norvir -) 100 mg PO BID [facility] Last Admin: 09/17/17 09:43 Dose: 100 mg Sodium Bicarbonate (Sodium Bicarbonate -) 650 mg PO TID [facility] Last Admin: 09/17/17 05:36 Dose: 650 mg Tamsulosin HCl (Flomax -) 0.4 mg PO BID [facility] Last Admin: 09/17/17 09:40 Dose: 0.4 mg - Objective Vital Signs: Vital Signs Temperature 98.4 F 09/17/17 09:02 Pulse Rate 79 09/17/17 09:02 Respiratory Rate 20 09/17/17 09:02 Blood Pressure 160/65 09/17/17 09:02 O2 Sat by Pulse Oximetry (%) 95 09/17/17 08:32 Eyes: Yes: WNL, Conjunctiva Clear, EOM Intact HENT: Yes: WNL, Atraumatic, Normocephalic Neck: Yes: WNL, Supple, Trachea Midline Cardiovascular: Yes: WNL, Regular Rate and Rhythm Respiratory: Yes: WNL, Regular, CTA Bilaterally Gastrointestinal: Yes: Ascites Genitourinary: Yes: WNL Musculoskeletal: Yes: WNL Extremities: Yes: WNL Edema: Yes Edema: LLE: 1+, RLE: 1+ Integumentary: Yes: WNL Neurological: Yes: WNL, Alert, Oriented ...Motor Strength: WNL Psychiatric: Yes: WNL Labs: CBC, BMP 09/17/17 05:30 09/17/17 05:30 INR, PTT INR 1.12 (0.83-1.09) 09/11/17 08:05 Laboratory Tests 09/11/17 09/11/17 09/11/17 05:45 06:38 06:38 WBC 65.7 H* RBC 3.12 L Hgb 9.2 L Hct 28.5 L D MCV 91.4 MCH 29.4 MCHC 32.1 RDW 16.0 H Plt Count 101 L D MPV 8.3 Absolute Neuts (auto) 0.7 Total Counted 100 Neutrophils % 1.1 L Neutrophils % (Manual) 1.0 L Band Neutrophils % Lymphocytes % 98.2 H Lymphocytes % (Manual) 97.0 H* Monocytes % 0.7 L Monocytes % (Manual) 2 L Eosinophils % 0.0 D Eosinophils % (Manual) Basophils % 0.0 Basophils % (Manual) Myelocytes % (Man) Promyelocytes % (Man) Blast Cells % (Manual) Nucleated RBC % 0 Metamyelocytes Smudge Cells Hypochromia Dohle Bodies Platelet Estimate Slt decrease Platelet Comment Polychromasia Poikilocytosis Anisocytosis Microcytosis Macrocytosis Tear Drop Cells [place] Cells PT with INR 12.90 INR 1.14 PTT (Actin FS) 25.8 VBG pH POC VBG pCO2 POC VBG pO2 Mixed VBG HCO3 Sodium Potassium Plasma Potassium Chloride Carbon Dioxide Anion Gap BUN Creatinine Creat Clearance w eGFR POC Glucometer Random Glucose Lactic Acid Uric Acid Calcium Phosphorus Magnesium Total Bilirubin AST ALT Alkaline Phosphatase LD Total Creatine Kinase Creatine Kinase Index CK-MB (CK-2) Troponin I Total Protein Total Protein (PEP) Albumin Albumin (PEP) Globulin Albumin/Globulin Ratio Beta Globulins Lipase TSH Urine Color Yellow Urine Appearance Cloudy Urine pH 5.0 Ur Specific [place] 1.011 Urine Protein 3+ H Urine Glucose (UA) 1+ H Urine Ketones Negative Urine Blood Negative Urine Nitrite Negative Urine Bilirubin Negative Urine Urobilinogen Negative Ur Leukocyte Esterase Negative Urine WBC (Auto) 4 Urine RBC (Auto) 1 Urine Bacteria Rare Urine Mucus Rare U Random Total Protein Ur Random Sodium Ur Random Potassium Ur Random Chloride Ur Random Urea Nitrogn Urine Creatinine Protein/Creatinin Ratio Stool Occult Blood IgG IgA IgM LUCHO M-Michael AVA Screen c-ANCA Proteinase 3 (PR3) p-ANCA Atypical p-ANCA Myeloperoxidase Ab Double Strand DNA Ab Glomerular Base Memb Ab Blood Type Antibody Screen Crossmatch 09/11/17 09/11/17 09/11/17 06:38 08:05 08:05 WBC RBC Hgb Hct MCV MCH MCHC RDW Plt Count MPV Absolute Neuts (auto) Total Counted Neutrophils % Neutrophils % (Manual) Band Neutrophils % Lymphocytes % Lymphocytes % (Manual) Monocytes % Monocytes % (Manual) Eosinophils % Eosinophils % (Manual) Basophils % Basophils % (Manual) Myelocytes % (Man) Promyelocytes % (Man) Blast Cells % (Manual) Nucleated RBC % Metamyelocytes Smudge Cells Hypochromia Dohle Bodies Platelet Estimate Platelet Comment Polychromasia Poikilocytosis Anisocytosis Microcytosis Macrocytosis Tear Drop Cells [place] Cells PT with INR 12.60 INR 1.12 PTT (Actin FS) 23.3 VBG pH 7.32 POC VBG pCO2 28.0 L POC VBG pO2 59.4 H Mixed VBG HCO3 13.8 L* Sodium 134 L Potassium 5.4 H D Plasma Potassium Chloride 103 Carbon Dioxide 15 L D Anion Gap 16 BUN 130 H* Creatinine 7.0 H Creat Clearance w eGFR 7.96 POC Glucometer Random Glucose 155 H Lactic Acid Uric Acid Calcium 8.2 L Phosphorus Magnesium Total Bilirubin 0.4 AST 7 L D ALT 19 Alkaline Phosphatase 68 LD Total Creatine Kinase Creatine Kinase Index CK-MB (CK-2) Troponin I Total Protein 6.2 L Total Protein (PEP) Albumin 3.6 Albumin (PEP) Globulin Albumin/Globulin Ratio Beta Globulins Lipase 276 TSH Urine Color Urine Appearance Urine pH Ur Specific [place] Urine Protein Urine Glucose (UA) Urine Ketones Urine Blood Urine Nitrite Urine Bilirubin Urine Urobilinogen Ur Leukocyte Esterase Urine WBC (Auto) Urine RBC (Auto) Urine Bacteria Urine Mucus U Random Total Protein Ur Random Sodium Ur Random Potassium Ur Random Chloride Ur Random Urea Nitrogn Urine Creatinine Protein/Creatinin Ratio Stool Occult Blood IgG IgA IgM LUCHO M-Michael AVA Screen c-ANCA Proteinase 3 (PR3) p-ANCA Atypical p-ANCA Myeloperoxidase Ab Double Strand DNA Ab Glomerular Base Memb Ab Blood Type Antibody Screen Crossmatch 09/11/17 09/11/17 09/11/17 08:05 08:05 11:05 WBC RBC Hgb Hct MCV MCH MCHC RDW Plt Count MPV Absolute Neuts (auto) Total Counted Neutrophils % Neutrophils % (Manual) Band Neutrophils % Lymphocytes % Lymphocytes % (Manual) Monocytes % Monocytes % (Manual) Eosinophils % Eosinophils % (Manual) Basophils % Basophils % (Manual) Myelocytes % (Man) Promyelocytes % (Man) Blast Cells % (Manual) Nucleated RBC % Metamyelocytes Smudge Cells Hypochromia Dohle Bodies Platelet Estimate Platelet Comment Polychromasia Poikilocytosis Anisocytosis Microcytosis Macrocytosis Tear Drop Cells [place] Cells PT with INR INR PTT (Actin FS) VBG pH POC VBG pCO2 POC VBG pO2 Mixed VBG HCO3 Sodium Cancelled Potassium Cancelled Plasma Potassium Chloride Cancelled Carbon Dioxide Cancelled Anion Gap Cancelled BUN Cancelled Creatinine Cancelled Creat Clearance w eGFR Cancelled POC Glucometer Random Glucose Cancelled Lactic Acid 1.3 0.9 Uric Acid Calcium Cancelled Phosphorus Magnesium Total Bilirubin Cancelled AST Cancelled ALT Cancelled Alkaline Phosphatase Cancelled LD Total Creatine Kinase Creatine Kinase Index CK-MB (CK-2) Troponin I < 0.02 Total Protein Cancelled Total Protein (PEP) Albumin Cancelled Albumin (PEP) Globulin Albumin/Globulin Ratio Beta Globulins Lipase TSH Cancelled Urine Color Urine Appearance Urine pH Ur Specific [place] Urine Protein Urine Glucose (UA) Urine Ketones Urine Blood Urine Nitrite Urine Bilirubin Urine Urobilinogen Ur Leukocyte Esterase Urine WBC (Auto) Urine RBC (Auto) Urine Bacteria Urine Mucus U Random Total Protein Ur Random Sodium Ur Random Potassium Ur Random Chloride Ur Random Urea Nitrogn Urine Creatinine Protein/Creatinin Ratio Stool Occult Blood IgG IgA IgM LUCHO M-Michael AVA Screen c-ANCA Proteinase 3 (PR3) p-ANCA Atypical p-ANCA Myeloperoxidase Ab Double Strand DNA Ab Glomerular Base Memb Ab Blood Type Antibody Screen Crossmatch 09/11/17 09/11/17 09/11/17 11:05 11:05 11:38 WBC RBC Hgb Hct MCV MCH MCHC RDW Plt Count MPV Absolute Neuts (auto) Total Counted Neutrophils % Neutrophils % (Manual) Band Neutrophils % Lymphocytes % Lymphocytes % (Manual) Monocytes % Monocytes % (Manual) Eosinophils % Eosinophils % (Manual) Basophils % Basophils % (Manual) Myelocytes % (Man) Promyelocytes % (Man) Blast Cells % (Manual) Nucleated RBC % Metamyelocytes Smudge Cells Hypochromia Dohle Bodies Platelet Estimate Platelet Comment Polychromasia Poikilocytosis Anisocytosis Microcytosis Macrocytosis Tear Drop Cells [place] Cells PT with INR INR PTT (Actin FS) VBG pH POC VBG pCO2 POC VBG pO2 Mixed VBG HCO3 Sodium 134 L Potassium 5.0 Plasma Potassium 4.6 Chloride 102 Carbon Dioxide 16 L Anion Gap 16 BUN 133 H* Creatinine 7.2 H Creat Clearance w eGFR 7.71 POC Glucometer Random Glucose 137 H Lactic Acid Uric Acid Calcium 7.9 L Phosphorus Magnesium Total Bilirubin AST ALT Alkaline Phosphatase LD Total Creatine Kinase Creatine Kinase Index CK-MB (CK-2) Troponin I Total Protein Total Protein (PEP) Albumin Albumin (PEP) Globulin Albumin/Globulin Ratio Beta Globulins Lipase TSH Urine Color Urine Appearance Urine pH Ur Specific [place] Urine Protein Urine Glucose (UA) Urine Ketones Urine Blood Urine Nitrite Urine Bilirubin Urine Urobilinogen Ur Leukocyte Esterase Urine WBC (Auto) Urine RBC (Auto) Urine Bacteria Urine Mucus U Random Total Protein Ur Random Sodium Ur Random Potassium Ur Random Chloride Ur Random Urea Nitrogn Urine Creatinine Cancelled Protein/Creatinin Ratio Stool Occult Blood IgG IgA IgM LUCHO M-Michael AVA Screen c-ANCA Proteinase 3 (PR3) p-ANCA Atypical p-ANCA Myeloperoxidase Ab Double Strand DNA Ab Glomerular Base Memb Ab Blood Type Antibody Screen Crossmatch 09/11/17 09/11/17 09/11/17 11:50 12:16 17:29 WBC RBC Hgb Hct MCV MCH MCHC RDW Plt Count MPV Absolute Neuts (auto) Total Counted Neutrophils % Neutrophils % (Manual) Band Neutrophils % Lymphocytes % Lymphocytes % (Manual) Monocytes % Monocytes % (Manual) Eosinophils % Eosinophils % (Manual) Basophils % Basophils % (Manual) Myelocytes % (Man) Promyelocytes % (Man) Blast Cells % (Manual) Nucleated RBC % Metamyelocytes Smudge Cells Hypochromia Dohle Bodies Platelet Estimate Platelet Comment Polychromasia Poikilocytosis Anisocytosis Microcytosis Macrocytosis Tear Drop Cells [place] Cells PT with INR INR PTT (Actin FS) VBG pH POC VBG pCO2 POC VBG pO2 Mixed VBG HCO3 Sodium Potassium Plasma Potassium Chloride Carbon Dioxide Anion Gap BUN Creatinine Creat Clearance w eGFR POC Glucometer [id number] Random Glucose Lactic Acid Uric Acid Calcium Phosphorus Magnesium Total Bilirubin AST ALT Alkaline Phosphatase LD Total Creatine Kinase Creatine Kinase Index CK-MB (CK-2) Troponin I Total Protein Total Protein (PEP) Albumin Albumin (PEP) Globulin Albumin/Globulin Ratio Beta Globulins Lipase TSH Urine Color Urine Appearance Urine pH Ur Specific [place] Urine Protein Urine Glucose (UA) Urine Ketones Urine Blood Urine Nitrite Urine Bilirubin Urine Urobilinogen Ur Leukocyte Esterase Urine WBC (Auto) Urine RBC (Auto) Urine Bacteria Urine Mucus U Random Total Protein Ur Random Sodium 27 Ur Random Potassium 40.1 Ur Random Chloride 18 Ur Random Urea Nitrogn Urine Creatinine 144.0 Protein/Creatinin Ratio Stool Occult Blood IgG IgA IgM LUCHO M-Michael AVA Screen c-ANCA Proteinase 3 (PR3) p-ANCA Atypical p-ANCA Myeloperoxidase Ab Double Strand DNA Ab Glomerular Base Memb Ab Blood Type Antibody Screen Crossmatch 09/11/17 09/11/17 09/11/17 18:30 18:30 22:22 WBC RBC Hgb Hct MCV MCH MCHC RDW Plt Count MPV Absolute Neuts (auto) Total Counted Neutrophils % Neutrophils % (Manual) Band Neutrophils % Lymphocytes % Lymphocytes % (Manual) Monocytes % Monocytes % (Manual) Eosinophils % Eosinophils % (Manual) Basophils % Basophils % (Manual) Myelocytes % (Man) Promyelocytes % (Man) Blast Cells % (Manual) Nucleated RBC % Metamyelocytes Smudge Cells Hypochromia Dohle Bodies Platelet Estimate Platelet Comment Polychromasia Poikilocytosis Anisocytosis Microcytosis Macrocytosis Tear Drop Cells [place] Cells PT with INR INR PTT (Actin FS) VBG pH POC VBG pCO2 POC VBG pO2 Mixed VBG HCO3 Sodium Potassium Plasma Potassium Chloride Carbon Dioxide Anion Gap BUN Creatinine Creat Clearance w eGFR POC Glucometer 145 Random Glucose Lactic Acid Uric Acid Calcium Phosphorus Magnesium Total Bilirubin AST ALT Alkaline Phosphatase LD Total Creatine Kinase Creatine Kinase Index CK-MB (CK-2) Troponin I Total Protein Total Protein (PEP) Albumin Albumin (PEP) Globulin Albumin/Globulin Ratio Beta Globulins Lipase TSH Urine Color Urine Appearance Urine pH Ur Specific [place] Urine Protein Urine Glucose (UA) Urine Ketones Urine Blood Urine Nitrite Urine Bilirubin Urine Urobilinogen Ur Leukocyte Esterase Urine WBC (Auto) Urine RBC (Auto) Urine Bacteria Urine Mucus U Random Total Protein 209 H Ur Random Sodium Ur Random Potassium Ur Random Chloride Ur Random Urea Nitrogn 498 Urine Creatinine 117.0 Protein/Creatinin Ratio 1.79 Stool Occult Blood IgG IgA IgM LUCHO M-Michael AVA Screen c-ANCA Proteinase 3 (PR3) p-ANCA Atypical p-ANCA Myeloperoxidase Ab Double Strand DNA Ab Glomerular Base Memb Ab Blood Type Antibody Screen Crossmatch 09/12/17 09/12/17 09/12/17 05:30 05:30 05:30 WBC 41.4 H* RBC 2.85 L Hgb 8.4 L Hct 25.7 L MCV 90.3 MCH 29.3 MCHC 32.5 RDW 15.8 Plt Count 86 L MPV 8.2 Absolute Neuts (auto) 0.6 Total Counted Neutrophils % 1.4 L Neutrophils % (Manual) 4.1 L Band Neutrophils % 0.0 Lymphocytes % 98.2 H Lymphocytes % (Manual) 95.9 H* Monocytes % 0.4 L Monocytes % (Manual) 0 L D Eosinophils % 0.0 Eosinophils % (Manual) 0.0 Basophils % 0.0 Basophils % (Manual) 0.0 Myelocytes % (Man) 0 Promyelocytes % (Man) 0 Blast Cells % (Manual) 0 Nucleated RBC % 0 Metamyelocytes 0 Smudge Cells Hypochromia 1+ Dohle Bodies Platelet Estimate Decreased Platelet Comment Polychromasia 1+ Poikilocytosis 1+ Anisocytosis 1+ Microcytosis 0 Macrocytosis 0 Tear Drop Cells [place] Cells 1+ PT with INR INR PTT (Actin FS) VBG pH POC VBG pCO2 POC VBG pO2 Mixed VBG HCO3 Sodium 138 Potassium 4.9 Plasma Potassium Chloride 107 Carbon Dioxide 15 L Anion Gap 16 BUN 136 H* Creatinine 7.0 H Creat Clearance w eGFR 7.96 POC Glucometer Random Glucose 133 H Lactic Acid Uric Acid 14.1 H* Calcium 7.5 L Phosphorus 8.5 H D Magnesium 3.0 H D Total Bilirubin 0.2 AST 9 L D ALT 16 Alkaline Phosphatase 60 LD Total 156 D Creatine Kinase Creatine Kinase Index CK-MB (CK-2) Troponin I Total Protein 5.8 L Total Protein (PEP) 5.6 L Albumin 3.3 L Albumin (PEP) 3.2 Globulin 2.4 Albumin/Globulin Ratio 1.3 Beta Globulins 0.8 Lipase TSH Urine Color Urine Appearance Urine pH Ur Specific [place] Urine Protein Urine Glucose (UA) Urine Ketones Urine Blood Urine Nitrite Urine Bilirubin Urine Urobilinogen Ur Leukocyte Esterase Urine WBC (Auto) Urine RBC (Auto) Urine Bacteria Urine Mucus U Random Total Protein Ur Random Sodium Ur Random Potassium Ur Random Chloride Ur Random Urea Nitrogn Urine Creatinine Protein/Creatinin Ratio Stool Occult Blood IgG IgA IgM LUCHO M-Michael Not observed AVA Screen Negative c-ANCA <1:20 Proteinase 3 (PR3) <3.5 p-ANCA <1:20 Atypical p-ANCA <1:20 Myeloperoxidase Ab <9.0 Double Strand DNA Ab <1 Glomerular Base Memb Ab 3 Blood Type Antibody Screen Crossmatch 09/12/17 09/12/17 09/12/17 05:30 05:30 05:34 WBC RBC Hgb Hct MCV MCH MCHC RDW Plt Count MPV Absolute Neuts (auto) Total Counted Neutrophils % Neutrophils % (Manual) Band Neutrophils % Lymphocytes % Lymphocytes % (Manual) Monocytes % Monocytes % (Manual) Eosinophils % Eosinophils % (Manual) Basophils % Basophils % (Manual) Myelocytes % (Man) Promyelocytes % (Man) Blast Cells % (Manual) Nucleated RBC % Metamyelocytes Smudge Cells Hypochromia Dohle Bodies Platelet Estimate Platelet Comment Polychromasia Poikilocytosis Anisocytosis Microcytosis Macrocytosis Tear Drop Cells [place] Cells PT with INR INR PTT (Actin FS) VBG pH POC VBG pCO2 POC VBG pO2 Mixed VBG HCO3 Sodium Potassium Plasma Potassium Chloride Carbon Dioxide Anion Gap BUN Creatinine Creat Clearance w eGFR POC Glucometer 166 Random Glucose Lactic Acid Uric Acid Calcium Phosphorus Magnesium Total Bilirubin AST ALT Alkaline Phosphatase LD Total Creatine Kinase Creatine Kinase Index CK-MB (CK-2) Troponin I Total Protein Total Protein (PEP) Albumin Albumin (PEP) Globulin Albumin/Globulin Ratio Beta Globulins Lipase TSH Urine Color Urine Appearance Urine pH Ur Specific [place] Urine Protein Urine Glucose (UA) Urine Ketones Urine Blood Urine Nitrite Urine Bilirubin Urine Urobilinogen Ur Leukocyte Esterase Urine WBC (Auto) Urine RBC (Auto) Urine Bacteria Urine Mucus U Random Total Protein Ur Random Sodium Ur Random Potassium Ur Random Chloride Ur Random Urea Nitrogn Urine Creatinine Protein/Creatinin Ratio Stool Occult Blood IgG 449 L 450 L IgA 51 L IgM LUCHO M-Michael AVA Screen c-ANCA Proteinase 3 (PR3) p-ANCA Atypical p-ANCA Myeloperoxidase Ab Double Strand DNA Ab Glomerular Base Memb Ab Blood Type Antibody Screen Crossmatch 09/12/17 09/12/17 09/12/17 12:03 17:48 22:02 WBC RBC Hgb Hct MCV MCH MCHC RDW Plt Count MPV Absolute Neuts (auto) Total Counted Neutrophils % Neutrophils % (Manual) Band Neutrophils % Lymphocytes % Lymphocytes % (Manual) Monocytes % Monocytes % (Manual) Eosinophils % Eosinophils % (Manual) Basophils % Basophils % (Manual) Myelocytes % (Man) Promyelocytes % (Man) Blast Cells % (Manual) Nucleated RBC % Metamyelocytes Smudge Cells Hypochromia Dohle Bodies Platelet Estimate Platelet Comment Polychromasia Poikilocytosis Anisocytosis Microcytosis Macrocytosis Tear Drop Cells [place] Cells PT with INR INR PTT (Actin FS) VBG pH POC VBG pCO2 POC VBG pO2 Mixed VBG HCO3 Sodium Potassium Plasma Potassium Chloride Carbon Dioxide Anion Gap BUN Creatinine Creat Clearance w eGFR POC Glucometer 210 175 154 Random Glucose Lactic Acid Uric Acid Calcium Phosphorus Magnesium Total Bilirubin AST ALT Alkaline Phosphatase LD Total Creatine Kinase Creatine Kinase Index CK-MB (CK-2) Troponin I Total Protein Total Protein (PEP) Albumin Albumin (PEP) Globulin Albumin/Globulin Ratio Beta Globulins Lipase TSH Urine Color Urine Appearance Urine pH Ur Specific [place] Urine Protein Urine Glucose (UA) Urine Ketones Urine Blood Urine Nitrite Urine Bilirubin Urine Urobilinogen Ur Leukocyte Esterase Urine WBC (Auto) Urine RBC (Auto) Urine Bacteria Urine Mucus U Random Total Protein Ur Random Sodium Ur Random Potassium Ur Random Chloride Ur Random Urea Nitrogn Urine Creatinine Protein/Creatinin Ratio Stool Occult Blood IgG IgA IgM LUCHO M-Michael AVA Screen c-ANCA Proteinase 3 (PR3) p-ANCA Atypical p-ANCA Myeloperoxidase Ab Double Strand DNA Ab Glomerular Base Memb Ab Blood Type Antibody Screen Crossmatch 09/13/17 09/13/17 09/13/17 03:01 05:30 05:30 WBC 33.5 H* RBC 2.71 L Hgb 8.0 L Hct 24.4 L MCV 90.2 MCH 29.5 MCHC 32.7 RDW 16.0 H Plt Count 85 L MPV 8.5 Absolute Neuts (auto) 0.5 Total Counted 100 Neutrophils % 1.5 L Neutrophils % (Manual) 1.0 L Band Neutrophils % Lymphocytes % 98.0 H Lymphocytes % (Manual) 97.0 H* Monocytes % 0.4 L Monocytes % (Manual) 2 L D Eosinophils % 0.1 D Eosinophils % (Manual) Basophils % 0.0 Basophils % (Manual) Myelocytes % (Man) Promyelocytes % (Man) Blast Cells % (Manual) Nucleated RBC % 0 Metamyelocytes Smudge Cells Hypochromia Dohle Bodies Platelet Estimate Decreased Platelet Comment Polychromasia Poikilocytosis Anisocytosis Microcytosis Macrocytosis Tear Drop Cells [place] Cells PT with INR INR PTT (Actin FS) VBG pH POC VBG pCO2 POC VBG pO2 Mixed VBG HCO3 Sodium 140 Potassium 4.4 Plasma Potassium Chloride 109 H Carbon Dioxide 16 L Anion Gap 15 BUN 135 H* Creatinine 6.4 H Creat Clearance w eGFR 8.83 POC Glucometer Random Glucose 143 H Lactic Acid Uric Acid Calcium 7.5 L Phosphorus 8.0 H Magnesium 3.2 H Total Bilirubin 0.2 AST 10 L ALT 17 Alkaline Phosphatase 58 LD Total Creatine Kinase Creatine Kinase Index CK-MB (CK-2) Troponin I Total Protein 5.7 L Total Protein (PEP) Albumin 3.2 L Albumin (PEP) Globulin Albumin/Globulin Ratio Beta Globulins Lipase TSH Urine Color Urine Appearance Urine pH Ur Specific [place] Urine Protein Urine Glucose (UA) Urine Ketones Urine Blood Urine Nitrite Urine Bilirubin Urine Urobilinogen Ur Leukocyte Esterase Urine WBC (Auto) Urine RBC (Auto) Urine Bacteria Urine Mucus U Random Total Protein Ur Random Sodium Ur Random Potassium Ur Random Chloride Ur Random Urea Nitrogn Urine Creatinine Protein/Creatinin Ratio Stool Occult Blood Positive IgG IgA IgM LUCHO M-Michael AVA Screen c-ANCA Proteinase 3 (PR3) p-ANCA Atypical p-ANCA Myeloperoxidase Ab Double Strand DNA Ab Glomerular Base Memb Ab Blood Type Antibody Screen Crossmatch 09/13/17 09/13/17 09/13/17 06:39 11:32 16:50 WBC RBC Hgb Hct MCV MCH MCHC RDW Plt Count MPV Absolute Neuts (auto) Total Counted Neutrophils % Neutrophils % (Manual) Band Neutrophils % Lymphocytes % Lymphocytes % (Manual) Monocytes % Monocytes % (Manual) Eosinophils % Eosinophils % (Manual) Basophils % Basophils % (Manual) Myelocytes % (Man) Promyelocytes % (Man) Blast Cells % (Manual) Nucleated RBC % Metamyelocytes Smudge Cells Hypochromia Dohle Bodies Platelet Estimate Platelet Comment Polychromasia Poikilocytosis Anisocytosis Microcytosis Macrocytosis Tear Drop Cells [place] Cells PT with INR INR PTT (Actin FS) VBG pH POC VBG pCO2 POC VBG pO2 Mixed VBG HCO3 Sodium Potassium Plasma Potassium Chloride Carbon Dioxide Anion Gap BUN Creatinine Creat Clearance w eGFR POC Glucometer 190 156 200 Random Glucose Lactic Acid Uric Acid Calcium Phosphorus Magnesium Total Bilirubin AST ALT Alkaline Phosphatase LD Total Creatine Kinase Creatine Kinase Index CK-MB (CK-2) Troponin I Total Protein Total Protein (PEP) Albumin Albumin (PEP) Globulin Albumin/Globulin Ratio Beta Globulins Lipase TSH Urine Color Urine Appearance Urine pH Ur Specific [place] Urine Protein Urine Glucose (UA) Urine Ketones Urine Blood Urine Nitrite Urine Bilirubin Urine Urobilinogen Ur Leukocyte Esterase Urine WBC (Auto) Urine RBC (Auto) Urine Bacteria Urine Mucus U Random Total Protein Ur Random Sodium Ur Random Potassium Ur Random Chloride Ur Random Urea Nitrogn Urine Creatinine Protein/Creatinin Ratio Stool Occult Blood IgG IgA IgM LUCHO M-Michael AVA Screen c-ANCA Proteinase 3 (PR3) p-ANCA Atypical p-ANCA Myeloperoxidase Ab Double Strand DNA Ab Glomerular Base Memb Ab Blood Type Antibody Screen Crossmatch 09/13/17 09/14/17 09/14/17 22:16 05:30 05:30 WBC 34.7 H* RBC 2.66 L Hgb 7.9 L Hct 24.1 L MCV 90.6 MCH 29.8 MCHC 32.9 RDW 15.8 Plt Count 90 L MPV 8.3 Absolute Neuts (auto) 0.6 Total Counted Neutrophils % 1.6 L Neutrophils % (Manual) 1.2 L Band Neutrophils % 0.0 Lymphocytes % 97.9 H Lymphocytes % (Manual) 98.8 H* Monocytes % 0.4 L Monocytes % (Manual) 0 L D Eosinophils % 0.0 D Eosinophils % (Manual) 0.0 Basophils % 0.1 D Basophils % (Manual) 0.0 Myelocytes % (Man) 0 Promyelocytes % (Man) 0 Blast Cells % (Manual) 0 Nucleated RBC % 0 Metamyelocytes 0 Smudge Cells Hypochromia Dohle Bodies Platelet Estimate Decreased Platelet Comment Polychromasia Poikilocytosis Anisocytosis Microcytosis Macrocytosis Tear Drop Cells 1+ [place] Cells PT with INR INR PTT (Actin FS) VBG pH POC VBG pCO2 POC VBG pO2 Mixed VBG HCO3 Sodium 140 Potassium 4.2 Plasma Potassium Chloride 109 H Carbon Dioxide 15 L Anion Gap 16 BUN 124 H* Creatinine 6.0 H Creat Clearance w eGFR 9.51 POC Glucometer 151 Random Glucose 159 H Lactic Acid Uric Acid Calcium 7.4 L Phosphorus 7.1 H Magnesium 2.7 H Total Bilirubin 0.2 AST 16 D ALT 17 Alkaline Phosphatase 57 LD Total Creatine Kinase Creatine Kinase Index CK-MB (CK-2) Troponin I Total Protein 5.6 L Total Protein (PEP) Albumin 3.3 L Albumin (PEP) Globulin Albumin/Globulin Ratio Beta Globulins Lipase TSH Urine Color Urine Appearance Urine pH Ur Specific [place] Urine Protein Urine Glucose (UA) Urine Ketones Urine Blood Urine Nitrite Urine Bilirubin Urine Urobilinogen Ur Leukocyte Esterase Urine WBC (Auto) Urine RBC (Auto) Urine Bacteria Urine Mucus U Random Total Protein Ur Random Sodium Ur Random Potassium Ur Random Chloride Ur Random Urea Nitrogn Urine Creatinine Protein/Creatinin Ratio Stool Occult Blood IgG IgA IgM LUCHO M-Michael AVA Screen c-ANCA Proteinase 3 (PR3) p-ANCA Atypical p-ANCA Myeloperoxidase Ab Double Strand DNA Ab Glomerular Base Memb Ab Blood Type Antibody Screen Crossmatch 09/14/17 09/14/17 09/14/17 06:28 10:05 10:48 WBC RBC Hgb Hct MCV MCH MCHC RDW Plt Count MPV Absolute Neuts (auto) Total Counted Neutrophils % Neutrophils % (Manual) Band Neutrophils % Lymphocytes % Lymphocytes % (Manual) Monocytes % Monocytes % (Manual) Eosinophils % Eosinophils % (Manual) Basophils % Basophils % (Manual) Myelocytes % (Man) Promyelocytes % (Man) Blast Cells % (Manual) Nucleated RBC % Metamyelocytes Smudge Cells Hypochromia Dohle Bodies Platelet Estimate Platelet Comment Polychromasia Poikilocytosis Anisocytosis Microcytosis Macrocytosis Tear Drop Cells [place] Cells PT with INR INR PTT (Actin FS) VBG pH POC VBG pCO2 POC VBG pO2 Mixed VBG HCO3 Sodium Potassium Plasma Potassium Chloride Carbon Dioxide Anion Gap BUN Creatinine Creat Clearance w eGFR POC Glucometer 166 163 Random Glucose Lactic Acid Uric Acid Calcium Phosphorus Magnesium Total Bilirubin AST ALT Alkaline Phosphatase LD Total Creatine Kinase Creatine Kinase Index CK-MB (CK-2) Troponin I Total Protein Total Protein (PEP) Albumin Albumin (PEP) Globulin Albumin/Globulin Ratio Beta Globulins Lipase TSH Urine Color Urine Appearance Urine pH Ur Specific [place] Urine Protein Urine Glucose (UA) Urine Ketones Urine Blood Urine Nitrite Urine Bilirubin Urine Urobilinogen Ur Leukocyte Esterase Urine WBC (Auto) Urine RBC (Auto) Urine Bacteria Urine Mucus U Random Total Protein Ur Random Sodium Ur Random Potassium Ur Random Chloride Ur Random Urea Nitrogn Urine Creatinine Protein/Creatinin Ratio Stool Occult Blood IgG IgA IgM LUCHO M-Michael AVA Screen c-ANCA Proteinase 3 (PR3) p-ANCA Atypical p-ANCA Myeloperoxidase Ab Double Strand DNA Ab Glomerular Base Memb Ab Blood Type B NEGATIVE Antibody Screen Negative Crossmatch See Detail 09/14/17 09/14/17 09/15/17 16:53 22:13 05:30 WBC RBC Hgb Hct MCV MCH MCHC RDW Plt Count MPV Absolute Neuts (auto) Total Counted Neutrophils % Neutrophils % (Manual) Band Neutrophils % Lymphocytes % Lymphocytes % (Manual) Monocytes % Monocytes % (Manual) Eosinophils % Eosinophils % (Manual) Basophils % Basophils % (Manual) Myelocytes % (Man) Promyelocytes % (Man) Blast Cells % (Manual) Nucleated RBC % Metamyelocytes Smudge Cells Hypochromia Dohle Bodies Platelet Estimate Platelet Comment Polychromasia Poikilocytosis Anisocytosis Microcytosis Macrocytosis Tear Drop Cells [place] Cells PT with INR INR PTT (Actin FS) VBG pH POC VBG pCO2 POC VBG pO2 Mixed VBG HCO3 Sodium Potassium Plasma Potassium Chloride Carbon Dioxide Anion Gap BUN Creatinine Creat Clearance w eGFR POC Glucometer 217 155 Random Glucose Lactic Acid Uric Acid Calcium Phosphorus Magnesium Total Bilirubin AST ALT Alkaline Phosphatase LD Total Creatine Kinase Creatine Kinase Index CK-MB (CK-2) Troponin I Total Protein Total Protein (PEP) Albumin Albumin (PEP) Globulin Albumin/Globulin Ratio Beta Globulins Lipase TSH Urine Color Urine Appearance Urine pH Ur Specific [place] Urine Protein Urine Glucose (UA) Urine Ketones Urine Blood Urine Nitrite Urine Bilirubin Urine Urobilinogen Ur Leukocyte Esterase Urine WBC (Auto) Urine RBC (Auto) Urine Bacteria Urine Mucus U Random Total Protein Ur Random Sodium Ur Random Potassium Ur Random Chloride Ur Random Urea Nitrogn Urine Creatinine Protein/Creatinin Ratio Stool Occult Blood IgG 451 L IgA 36 L IgM 6 L LUCHO M-Michael AVA Screen c-ANCA Proteinase 3 (PR3) p-ANCA Atypical p-ANCA Myeloperoxidase Ab Double Strand DNA Ab Glomerular Base Memb Ab Blood Type Antibody Screen Crossmatch 09/15/17 09/15/17 09/15/17 05:30 05:30 06:14 WBC 34.0 H* RBC 2.79 L Hgb 8.3 L Hct 25.1 L MCV 89.9 MCH 29.7 MCHC 33.0 RDW 15.8 Plt Count 87 L MPV 8.5 Absolute Neuts (auto) 0.7 Total Counted Neutrophils % 2.1 L Neutrophils % (Manual) 1.0 L Band Neutrophils % Lymphocytes % 97.4 H Lymphocytes % (Manual) 93.0 H* Monocytes % 0.4 L Monocytes % (Manual) 1 L D Eosinophils % 0.0 Eosinophils % (Manual) Basophils % 0.1 Basophils % (Manual) Myelocytes % (Man) Promyelocytes % (Man) Blast Cells % (Manual) Nucleated RBC % 0 Metamyelocytes Smudge Cells Moderate Hypochromia 2+ Dohle Bodies Platelet Estimate Decreased Platelet Comment No clumping noted Polychromasia Poikilocytosis 1+ Anisocytosis Microcytosis Macrocytosis Tear Drop Cells [place] Cells PT with INR INR PTT (Actin FS) VBG pH POC VBG pCO2 POC VBG pO2 Mixed VBG HCO3 Sodium 143 Potassium 4.3 Plasma Potassium Chloride 114 H Carbon Dioxide 17 L Anion Gap 12 BUN 116 H* Creatinine 5.5 H Creat Clearance w eGFR 10.52 POC Glucometer 125 Random Glucose 117 H D Lactic Acid Uric Acid Calcium 7.9 L Phosphorus 6.3 H Magnesium 2.9 H Total Bilirubin 0.3 AST 22 D ALT 20 Alkaline Phosphatase 58 LD Total Creatine Kinase Creatine Kinase Index CK-MB (CK-2) Troponin I Total Protein 5.4 L Total Protein (PEP) Albumin 3.3 L Albumin (PEP) Globulin Albumin/Globulin Ratio Beta Globulins Lipase TSH Urine Color Urine Appearance Urine pH Ur Specific [place] Urine Protein Urine Glucose (UA) Urine Ketones Urine Blood Urine Nitrite Urine Bilirubin Urine Urobilinogen Ur Leukocyte Esterase Urine WBC (Auto) Urine RBC (Auto) Urine Bacteria Urine Mucus U Random Total Protein Ur Random Sodium Ur Random Potassium Ur Random Chloride Ur Random Urea Nitrogn Urine Creatinine Protein/Creatinin Ratio Stool Occult Blood IgG IgA IgM LUCHO M-Michael AVA Screen c-ANCA Proteinase 3 (PR3) p-ANCA Atypical p-ANCA Myeloperoxidase Ab Double Strand DNA Ab Glomerular Base Memb Ab Blood Type Antibody Screen Crossmatch 09/15/17 09/15/17 09/15/17 11:09 15:30 18:22 WBC RBC Hgb Hct MCV MCH MCHC RDW Plt Count MPV Absolute Neuts (auto) Total Counted Neutrophils % Neutrophils % (Manual) Band Neutrophils % Lymphocytes % Lymphocytes % (Manual) Monocytes % Monocytes % (Manual) Eosinophils % Eosinophils % (Manual) Basophils % Basophils % (Manual) Myelocytes % (Man) Promyelocytes % (Man) Blast Cells % (Manual) Nucleated RBC % Metamyelocytes Smudge Cells Hypochromia Dohle Bodies Platelet Estimate Platelet Comment Polychromasia Poikilocytosis Anisocytosis Microcytosis Macrocytosis Tear Drop Cells [place] Cells PT with INR INR PTT (Actin FS) VBG pH POC VBG pCO2 POC VBG pO2 Mixed VBG HCO3 Sodium Potassium Plasma Potassium Chloride Carbon Dioxide Anion Gap BUN Creatinine Creat Clearance w eGFR POC Glucometer 258 247 Random Glucose Lactic Acid Uric Acid Calcium Phosphorus Magnesium Total Bilirubin AST ALT Alkaline Phosphatase LD Total Creatine Kinase Creatine Kinase Index CK-MB (CK-2) Troponin I Total Protein Total Protein (PEP) Albumin Albumin (PEP) Globulin Albumin/Globulin Ratio Beta Globulins Lipase TSH Urine Color Urine Appearance Urine pH Ur Specific [place] Urine Protein Urine Glucose (UA) Urine Ketones Urine Blood Urine Nitrite Urine Bilirubin Urine Urobilinogen Ur Leukocyte Esterase Urine WBC (Auto) Urine RBC (Auto) Urine Bacteria Urine Mucus U Random Total Protein Ur Random Sodium Ur Random Potassium Ur Random Chloride Ur Random Urea Nitrogn Urine Creatinine Protein/Creatinin Ratio Stool Occult Blood Negative IgG IgA IgM LUCHO M-Michael AVA Screen c-ANCA Proteinase 3 (PR3) p-ANCA Atypical p-ANCA Myeloperoxidase Ab Double Strand DNA Ab Glomerular Base Memb Ab Blood Type Antibody Screen Crossmatch 09/15/17 09/16/17 09/16/17 22:26 04:55 05:11 WBC RBC Hgb Hct MCV MCH MCHC RDW Plt Count MPV Absolute Neuts (auto) Total Counted Neutrophils % Neutrophils % (Manual) Band Neutrophils % Lymphocytes % Lymphocytes % (Manual) Monocytes % Monocytes % (Manual) Eosinophils % Eosinophils % (Manual) Basophils % Basophils % (Manual) Myelocytes % (Man) Promyelocytes % (Man) Blast Cells % (Manual) Nucleated RBC % Metamyelocytes Smudge Cells Hypochromia Dohle Bodies Platelet Estimate Platelet Comment Polychromasia Poikilocytosis Anisocytosis Microcytosis Macrocytosis Tear Drop Cells [place] Cells PT with INR INR PTT (Actin FS) VBG pH POC VBG pCO2 POC VBG pO2 Mixed VBG HCO3 Sodium Potassium Plasma Potassium Chloride Carbon Dioxide Anion Gap BUN Creatinine Creat Clearance w eGFR POC Glucometer 140 116 Random Glucose Lactic Acid Uric Acid Calcium Phosphorus Magnesium Total Bilirubin AST ALT Alkaline Phosphatase LD Total Creatine Kinase Creatine Kinase Index CK-MB (CK-2) Troponin I 0.03 D Total Protein Total Protein (PEP) Albumin Albumin (PEP) Globulin Albumin/Globulin Ratio Beta Globulins Lipase TSH Urine Color Urine Appearance Urine pH Ur Specific [place] Urine Protein Urine Glucose (UA) Urine Ketones Urine Blood Urine Nitrite Urine Bilirubin Urine Urobilinogen Ur Leukocyte Esterase Urine WBC (Auto) Urine RBC (Auto) Urine Bacteria Urine Mucus U Random Total Protein Ur Random Sodium Ur Random Potassium Ur Random Chloride Ur Random Urea Nitrogn Urine Creatinine Protein/Creatinin Ratio Stool Occult Blood IgG IgA IgM LUCHO M-Michael AVA Screen c-ANCA Proteinase 3 (PR3) p-ANCA Atypical p-ANCA Myeloperoxidase Ab Double Strand DNA Ab Glomerular Base Memb Ab Blood Type Antibody Screen Crossmatch 0809/16/17 09/16/17 06:20 06:30 11:18 WBC 33.3 H* RBC 2.70 L Hgb 8.0 L Hct 24.5 L MCV 90.8 MCH 29.6 MCHC 32.6 RDW 16.1 H Plt Count 89 L MPV 8.2 Absolute Neuts (auto) 0.6 Total Counted 100 Neutrophils % No Result Required. Neutrophils % (Manual) 2.0 L Band Neutrophils % 1.0 Lymphocytes % No Result Required. Lymphocytes % (Manual) 95.0 H* Monocytes % Monocytes % (Manual) 2 L D Eosinophils % Eosinophils % (Manual) Basophils % Basophils % (Manual) Myelocytes % (Man) Promyelocytes % (Man) Blast Cells % (Manual) Nucleated RBC % 0 Metamyelocytes Smudge Cells Hypochromia 1+ Dohle Bodies 1+ Platelet Estimate Decreased Platelet Comment No clumping noted Polychromasia 1+ Poikilocytosis Anisocytosis Microcytosis Macrocytosis Tear Drop Cells [place] Cells PT with INR INR PTT (Actin FS) VBG pH POC VBG pCO2 POC VBG pO2 Mixed VBG HCO3 Sodium 142 Potassium 4.1 Plasma Potassium Chloride 112 H Carbon Dioxide 17 L Anion Gap 13 BUN 105 H* Creatinine 5.3 H Creat Clearance w eGFR 10.98 POC Glucometer Random Glucose 117 H Lactic Acid Uric Acid Calcium 8.0 L Phosphorus 5.8 H Magnesium 2.8 H Total Bilirubin AST ALT Alkaline Phosphatase LD Total Creatine Kinase 270 Creatine Kinase Index 1.0 CK-MB (CK-2) 2.96 Troponin I 0.03 Total Protein Total Protein (PEP) Albumin Albumin (PEP) Globulin Albumin/Globulin Ratio Beta Globulins Lipase TSH Urine Color Urine Appearance Urine pH Ur Specific [place] Urine Protein Urine Glucose (UA) Urine Ketones Urine Blood Urine Nitrite Urine Bilirubin Urine Urobilinogen Ur Leukocyte Esterase Urine WBC (Auto) Urine RBC (Auto) Urine Bacteria Urine Mucus U Random Total Protein Ur Random Sodium Ur Random Potassium Ur Random Chloride Ur Random Urea Nitrogn Urine Creatinine Protein/Creatinin Ratio Stool Occult Blood IgG IgA IgM LUCHO M-Michael AVA Screen c-ANCA Proteinase 3 (PR3) p-ANCA Atypical p-ANCA Myeloperoxidase Ab Double Strand DNA Ab Glomerular Base Memb Ab Blood Type Antibody Screen Crossmatch 09/16/17 09/16/17 09/16/17 12:01 16:40 17:05 WBC RBC Hgb Hct MCV MCH MCHC RDW Plt Count MPV Absolute Neuts (auto) Total Counted Neutrophils % Neutrophils % (Manual) Band Neutrophils % Lymphocytes % Lymphocytes % (Manual) Monocytes % Monocytes % (Manual) Eosinophils % Eosinophils % (Manual) Basophils % Basophils % (Manual) Myelocytes % (Man) Promyelocytes % (Man) Blast Cells % (Manual) Nucleated RBC % Metamyelocytes Smudge Cells Hypochromia Dohle Bodies Platelet Estimate Platelet Comment Polychromasia Poikilocytosis Anisocytosis Microcytosis Macrocytosis Tear Drop Cells [place] Cells PT with INR INR PTT (Actin FS) VBG pH POC VBG pCO2 POC VBG pO2 Mixed VBG HCO3 Sodium Potassium Plasma Potassium Chloride Carbon Dioxide Anion Gap BUN Creatinine Creat Clearance w eGFR POC Glucometer 111 152 Random Glucose Lactic Acid Uric Acid Calcium Phosphorus Magnesium Total Bilirubin AST ALT Alkaline Phosphatase LD Total Creatine Kinase 255 Creatine Kinase Index 1.3 CK-MB (CK-2) 3.32 Troponin I 0.02 D Total Protein Total Protein (PEP) Albumin Albumin (PEP) Globulin Albumin/Globulin Ratio Beta Globulins Lipase TSH Urine Color Urine Appearance Urine pH Ur Specific [place] Urine Protein Urine Glucose (UA) Urine Ketones Urine Blood Urine Nitrite Urine Bilirubin Urine Urobilinogen Ur Leukocyte Esterase Urine WBC (Auto) Urine RBC (Auto) Urine Bacteria Urine Mucus U Random Total Protein Ur Random Sodium Ur Random Potassium Ur Random Chloride Ur Random Urea Nitrogn Urine Creatinine Protein/Creatinin Ratio Stool Occult Blood IgG IgA IgM LUCHO M-Michael AVA Screen c-ANCA Proteinase 3 (PR3) p-ANCA Atypical p-ANCA Myeloperoxidase Ab Double Strand DNA Ab Glomerular Base Memb Ab Blood Type Antibody Screen Crossmatch 09/16/17 09/17/17 09/17/17 21:43 05:21 05:30 WBC 34.0 H* RBC 3.12 L Hgb 9.3 L Hct 28.1 L MCV 90.0 MCH 29.7 MCHC 33.0 RDW 16.3 H Plt Count 95 L MPV 8.1 Absolute Neuts (auto) 0.7 Total Counted Neutrophils % 2.1 L Neutrophils % (Manual) Band Neutrophils % Lymphocytes % 97.1 H Lymphocytes % (Manual) Monocytes % 0.8 L D Monocytes % (Manual) Eosinophils % 0.0 Eosinophils % (Manual) Basophils % 0.0 Basophils % (Manual) Myelocytes % (Man) Promyelocytes % (Man) Blast Cells % (Manual) Nucleated RBC % 0 Metamyelocytes Smudge Cells Hypochromia Dohle Bodies Platelet Estimate Platelet Comment Polychromasia Poikilocytosis Anisocytosis Microcytosis Macrocytosis Tear Drop Cells [place] Cells PT with INR INR PTT (Actin FS) VBG pH POC VBG pCO2 POC VBG pO2 Mixed VBG HCO3 Sodium Potassium Plasma Potassium Chloride Carbon Dioxide Anion Gap BUN Creatinine Creat Clearance w eGFR POC Glucometer 139 115 Random Glucose Lactic Acid Uric Acid Calcium Phosphorus Magnesium Total Bilirubin AST ALT Alkaline Phosphatase LD Total Creatine Kinase Creatine Kinase Index CK-MB (CK-2) Troponin I Total Protein Total Protein (PEP) Albumin Albumin (PEP) Globulin Albumin/Globulin Ratio Beta Globulins Lipase TSH Urine Color Urine Appearance Urine pH Ur Specific [place] Urine Protein Urine Glucose (UA) Urine Ketones Urine Blood Urine Nitrite Urine Bilirubin Urine Urobilinogen Ur Leukocyte Esterase Urine WBC (Auto) Urine RBC (Auto) Urine Bacteria Urine Mucus U Random Total Protein Ur Random Sodium Ur Random Potassium Ur Random Chloride Ur Random Urea Nitrogn Urine Creatinine Protein/Creatinin Ratio Stool Occult Blood IgG IgA IgM LUCHO M-Michael AVA Screen c-ANCA Proteinase 3 (PR3) p-ANCA Atypical p-ANCA Myeloperoxidase Ab Double Strand DNA Ab Glomerular Base Memb Ab Blood Type Antibody Screen Crossmatch 09/17/17 05:30 WBC RBC Hgb Hct MCV MCH MCHC RDW Plt Count MPV Absolute Neuts (auto) Total Counted Neutrophils % Neutrophils % (Manual) Band Neutrophils % Lymphocytes % Lymphocytes % (Manual) Monocytes % Monocytes % (Manual) Eosinophils % Eosinophils % (Manual) Basophils % Basophils % (Manual) Myelocytes % (Man) Promyelocytes % (Man) Blast Cells % (Manual) Nucleated RBC % Metamyelocytes Smudge Cells Hypochromia Dohle Bodies Platelet Estimate Platelet Comment Polychromasia Poikilocytosis Anisocytosis Microcytosis Macrocytosis Tear Drop Cells [place] Cells PT with INR INR PTT (Actin FS) VBG pH POC VBG pCO2 POC VBG pO2 Mixed VBG HCO3 Sodium 143 Potassium 4.3 Plasma Potassium Chloride 113 H Carbon Dioxide 19 L Anion Gap 11 BUN 100 H Creatinine 4.8 H Creat Clearance w eGFR 12.31 POC Glucometer Random Glucose 115 H Lactic Acid Uric Acid Calcium 7.9 L Phosphorus 5.2 H Magnesium 2.7 H Total Bilirubin 0.2 AST 22 ALT 25 D Alkaline Phosphatase 54 LD Total Creatine Kinase Creatine Kinase Index CK-MB (CK-2) Troponin I Total Protein 5.4 L Total Protein (PEP) Albumin 3.1 L Albumin (PEP) Globulin Albumin/Globulin Ratio Beta Globulins Lipase TSH Urine Color Urine Appearance Urine pH Ur Specific [place] Urine Protein Urine Glucose (UA) Urine Ketones Urine Blood Urine Nitrite Urine Bilirubin Urine Urobilinogen Ur Leukocyte Esterase Urine WBC (Auto) Urine RBC (Auto) Urine Bacteria Urine Mucus U Random Total Protein Ur Random Sodium Ur Random Potassium Ur Random Chloride Ur Random Urea Nitrogn Urine Creatinine Protein/Creatinin Ratio Stool Occult Blood IgG IgA IgM LUCHO M-Michael AVA Screen c-ANCA Proteinase 3 (PR3) p-ANCA Atypical p-ANCA Myeloperoxidase Ab Double Strand DNA Ab Glomerular Base Memb Ab Blood Type Antibody Screen Crossmatch Problem List - Problems (1) Abdominal pain Code(s): R10.9 - UNSPECIFIED ABDOMINAL PAIN (2) Acute kidney failure Code(s): N17.9 - ACUTE KIDNEY FAILURE, UNSPECIFIED (3) Acute urinary retention Code(s): R33.8 - OTHER RETENTION OF URINE (4) CLL (chronic lymphocytic leukemia) Code(s): C91.90 - LYMPHOID LEUKEMIA, UNSPECIFIED NOT HAVING ACHIEVED REMISSION (5) Chronic kidney disease Code(s): N18.9 - CHRONIC KIDNEY DISEASE, UNSPECIFIED (6) Cirrhosis of liver Code(s): K74.60 - UNSPECIFIED CIRRHOSIS OF LIVER (7) Diverticulitis Code(s): K57.92 - DVTRCLI OF INTEST, PART UNSP, W/O PERF OR ABSCESS W/O BLEED (8) HIV 2 (human immunodeficiency virus type 2) Code(s): B97.35 - HIV 2 THE CAUSE OF DISEASES CLASSIFIED ELSEWHERE (9) Liver cirrhosis Code(s): K74.60 - UNSPECIFIED CIRRHOSIS OF LIVER (10) Renal insufficiency Code(s): N28.9 - DISORDER OF KIDNEY AND URETER, UNSPECIFIED (11) Status post insertion of Lara catheter Code(s): Z98.890 - OTHER SPECIFIED POSTPROCEDURAL STATES (12) Angina Code(s): I20.9 - ANGINA PECTORIS, UNSPECIFIED (13) Azotemia Code(s): R79.89 - OTHER SPECIFIED ABNORMAL FINDINGS OF BLOOD CHEMISTRY (14) Chronic hepatitis C Code(s): B18.2 - CHRONIC VIRAL HEPATITIS C (15) DM Diabetes mellitus type 2 Code(s): E11.9 - TYPE 2 DIABETES MELLITUS WITHOUT COMPLICATIONS (16) Human immunodeficiency virus (HIV) seropositivity Code(s): Z21 - ASYMPTOMATIC HUMAN IMMUNODEFICIENCY VIRUS INFECTION STATUS (17) Anemia Code(s): D64.9 - ANEMIA, UNSPECIFIED (18) Bronchitis Code(s): J40 - BRONCHITIS, NOT SPECIFIED ACUTE OR CHRONIC (20) Colitis Code(s): K52.9 - NONINFECTIVE GASTROENTERITIS AND COLITIS, UNSPECIFIED (21) Cough Code(s): R05 - COUGH (22) DVT prophylaxis Code(s): OLG5328 - (23) Fever Code(s): R50.9 - FEVER, UNSPECIFIED (24) Fever of unknown origin (FUO) Code(s): R50.9 - FEVER, UNSPECIFIED (25) Influenza A Code(s): J10.1 - FLU DUE TO OTH IDENT INFLUENZA VIRUS W OTH RESP MANIFEST (26) Kidney stone on left side Code(s): N20.0 - CALCULUS OF KIDNEY (27) Lymphadenopathy of right cervical region Code(s): R59.0 - LOCALIZED ENLARGED LYMPH NODES (28) Muscle spasms of neck Code(s): M62.838 - OTHER MUSCLE SPASM (29) Nasal congestion Code(s): R09.81 - NASAL CONGESTION (30) Prerenal azotemia Code(s): N17.9 - ACUTE KIDNEY FAILURE, UNSPECIFIED (31) Prostatism Code(s): N40.0 - BENIGN PROSTATIC HYPERPLASIA WITHOUT LOWER URINRY TRACT SYMP (32) Recurrent nephrolithiasis Code(s): N20.0 - CALCULUS OF KIDNEY (33) Transaminitis Code(s): R74.0 - NONSPEC ELEV OF LEVELS OF TRANSAMNS & LACTIC ACID DEHYDRGNSE (34) Upper respiratory infection Code(s): J06.9 - ACUTE UPPER RESPIRATORY INFECTION, UNSPECIFIED Qualifiers: URI type: unspecified viral URI Qualified Code(s): J06.9 - Acute upper respiratory infection, unspecified Assessment/Plan CP sx IRCHY CKD with baseline [employer] 2.2 HIV liver cirrhosis Hep C nephrolothiasis DM BPH HTN CLL Plan r/o mi echo mibi st when stable asa if no contraindications from hematology/oncology point of view - thrombocytopenia keep LDL below 70 mg/dl
[2017-09-17 12:47] LABS: PLATELET ESTIMATE DECREASED
--- NOTE | 2017-09-17 13:37 | ECHO ---
Name: JOSÉ MANUEL VIDAL Exam:Adult Echocardiogram Study Date: 09/17/2017 10:40 AM Age: 66 yrs Reason For Study: LV Function Height: 70 in Weight: 182 lb BSA: 2.0 m2 MMode/2D Measurements & Calculations IVSd: 0.96 cm Ao root diam: 3.0 cm LVIDd: 5.7 cm LA dimension: 4.8 cm LVIDs: 3.8 cm LVPWd: 1.0 cm EDV(Teich): 159.9 ml LAV (MOD-bp): 100.0 ml ESV(Teich): 60.1 ml Doppler Measurements & Calculations MV E max layo: 101.0 cm/sec MR max layo: 370.0 cm/sec MV A max layo: 121.7 cm/sec MR max P.2 mmHg MV E/A: 0.83 MV dec time: 0.31 sec TR max layo: 327.5 cm/sec Med Peak E' Layo: 8.3 cm/sec TR max P.9 mmHg Med E/e': 12.2 Lat Peak E' Layo: 12.0 cm/sec Lat E/e': 8.4 PI Vmax: 130.3 cm/sec Procedure The study was technically adequate with some images being suboptimal in quality. Left Ventricle The left ventricle is normal in size. Left ventricular systolic function is normal. Ejection Fraction = 60- 65%. E/A reversal consistent with but not diagnostic of poor LV compliance. No regional wall motion abnormalities noted. Right Ventricle The right ventricle is normal size. The right ventricular systolic function is normal. Atria LV volume is 100 ml and volume index 50 ml/m2 suggests moderate to severe LA dilation. Right atrial s ize is normal. Mitral Valve There is mild mitral annular calcification. There is mild mitral regurgitation. Tricuspid Valve The tricuspid valve is normal in structure and function. There is mild tricuspid regurgitation. Pulmo nary artery systolic pressure is at least 61 mmHg assuming RA pressure of 15 mmHg (dilated IVC with <50% c ollapse). Aortic Valve The aortic valve is normal in structure and function. The aortic valve is trileaflet. The aortic valv e opens well. No aortic regurgitation is present. Pulmonic Valve The pulmonic valve is not well visualized. Trace to mild pulmonic valvular regurgitation. Great Vessels The aortic root is normal size. Pericardium/Pleura There is no pericardial effusion. Interpretation Summary The left ventricle is normal in size. Left ventricular systolic function is normal. No regional wall motion abnormalities noted. Ejection Fraction = 60-65%. E/A reversal consistent with but not diagnostic of poor LV compliance The right ventricular systolic function is normal. LV volume is 100 ml and volume index 50 ml/m2 suggests moderate to severe LA dilation Right atrial size is normal. There is mild mitral annular calcification. There is mild mitral regurgitation. There is mild tricuspid regurgitation. Pulmonary artery systolic pressure is at least 61 mmHg assuming RA pressure of 15 mmHg (dilated IVC w ith <50% collapse) Trace to mild pulmonic valvular regurgitation. There is no pericardial effusion. Compared to previous study dated 09/11/17, severe pulmonary HTN is evident. Derek Hi MD 09/17/2017 01:37 PM
--- NOTE | 2017-09-17 14:05 | PN ---
Progress Note, Physician History of Present Illness: Pt seen and examined at bedside. He complains of lower ext edema today. He denies chest pain. - Current Medication List Current Medications: Active Medications Carvedilol (Coreg -) 3.125 mg PO BID [facility] Last Admin: 09/17/17 09:40 Dose: 3.125 mg Darunavir (Prezista -) 600 mg PO BID [facility] Last Admin: 09/17/17 09:42 Dose: 600 mg Docusate Sodium (Colace -) 100 mg PO TID [facility] Last Admin: 09/17/17 05:37 Dose: 100 mg Hydrocortisone (Anusol 2.5% Hc Cream -) 1 applic TN BID [facility] Last Admin: 09/17/17 11:57 Dose: 1 applic Ceftriaxone Sodium 2 gm/ (Dextrose) 100 mls @ 200 mls/hr IVPB DAILY [facility]; Protocol Last Admin: 09/17/17 09:41 Dose: 200 mls/hr Metronidazole (Flagyl 500mg Premixed Ivpb -) 500 mg in 100 mls @ 100 mls/hr IVPB Q8H-IV [facility] Last Admin: 09/17/17 09:44 Dose: 100 mls/hr Sodium Chloride (1/2 Normal Saline) 1,000 mls @ 42 mls/hr IV ASDIR [facility] Last Admin: 09/16/17 21:39 Dose: 42 mls/hr Insulin Aspart (Novolog Vial Sliding Scale -) 1 vial SQ ACHS [facility]; Protocol Last Admin: 09/17/17 11:57 Dose: 2 units Melatonin (Melatonin) 3 mg PO HS [facility] Last Admin: 09/16/17 23:10 Dose: 3 mg Multivitamins/Minerals/Vitamin C (Tab-A-Vit -) 1 tab PO DAILY [facility] Last Admin: 09/17/17 09:39 Dose: 1 tab Nifedipine (Procardia Xl -) 60 mg PO DAILY [facility] Last Admin: 09/17/17 09:40 Dose: 60 mg Polyethylene Glycol (Miralax (For Daily Use) -) 17 gm PO DAILY [facility] Last Admin: 09/17/17 09:44 Dose: 17 grams Psyllium Hydrophilic Mucilloid (Metamucil (Sugar-Free) -) 5.85 gm PO BID [facility] Last Admin: 09/16/17 21:58 Dose: 5.85 gm Raltegravir (Isentress -) 400 mg PO BID [facility] Last Admin: 09/17/17 09:43 Dose: 400 mg Ranitidine HCl (Zantac -) 150 mg PO DAILY [facility] Last Admin: 09/17/17 09:40 Dose: 150 mg Ritonavir (Norvir -) 100 mg PO BID [facility] Last Admin: 09/17/17 09:43 Dose: 100 mg Sodium Bicarbonate (Sodium Bicarbonate -) 650 mg PO TID [facility] Last Admin: 09/17/17 05:36 Dose: 650 mg Tamsulosin HCl (Flomax -) 0.4 mg PO BID [facility] Last Admin: 09/17/17 09:40 Dose: 0.4 mg - Objective Vital Signs: Vital Signs Temperature 98.4 F 09/17/17 09:02 Pulse Rate 79 09/17/17 09:02 Respiratory Rate 20 09/17/17 09:02 Blood Pressure 160/65 09/17/17 09:02 O2 Sat by Pulse Oximetry (%) 95 09/17/17 08:32 Constitutional: Yes: Calm Eyes: Yes: Conjunctiva Clear HENT: Yes: Atraumatic Neck: Yes: Supple Cardiovascular: Yes: S1, S2 Respiratory: Yes: CTA Bilaterally Gastrointestinal: Yes: Soft Genitourinary: Yes: WNL Musculoskeletal: Yes: WNL Edema: Yes Edema: LLE: 2+, RLE: 2+ Neurological: Yes: Oriented Psychiatric: Yes: Oriented Labs: CBC, BMP 09/17/17 05:30 09/17/17 05:30 INR, PTT INR 1.12 (0.83-1.09) 09/11/17 08:05 Problem List - Problems (1) Acute urinary retention Code(s): R33.8 - OTHER RETENTION OF URINE (2) Cirrhosis of liver Code(s): K74.60 - UNSPECIFIED CIRRHOSIS OF LIVER (3) Renal insufficiency Code(s): N28.9 - DISORDER OF KIDNEY AND URETER, UNSPECIFIED (4) Chronic hepatitis C Code(s): B18.2 - CHRONIC VIRAL HEPATITIS C (5) Human immunodeficiency virus (HIV) seropositivity Code(s): Z21 - ASYMPTOMATIC HUMAN IMMUNODEFICIENCY VIRUS INFECTION STATUS Assessment/Plan Current Medications Generic Name Dose Route Start Last Admin Trade Name Freq PRN Reason Stop Dose Admin Carvedilol 3.125 mg 09/16/17 22:00 09/17/17 09:40 Coreg - PO 3.125 mg BID [facility] Administration Darunavir 600 mg 09/16/17 22:00 09/17/17 09:42 Prezista - PO 600 mg BID [facility] Administration Docusate Sodium 100 mg 09/16/17 22:00 09/17/17 05:37 Colace - PO 100 mg TID [facility] Administration Hydrocortisone 1 applic 09/16/17 22:00 09/17/17 11:57 Anusol 2.5% Hc Cream - TN 1 applic BID [facility] Administration Ceftriaxone Sodium 2 gm/ 100 mls @ 200 mls/hr 09/17/17 10:00 09/17/17 09:41 Dextrose IVPB 200 mls/hr DAILY [facility] Administration Protocol Metronidazole 500 mg in 100 mls @ 100 mls/hr 09/17/17 02:00 09/17/17 09:44 Flagyl 500mg Premixed Ivpb - IVPB 100 mls/hr Q8H-IV [facility] Administration Sodium Chloride 1,000 mls @ 42 mls/hr 09/16/17 19:32 09/16/17 21:39 1/2 Normal Saline IV 42 mls/hr ASDIR [facility] Administration Insulin Aspart 1 vial 09/16/17 22:00 09/17/17 11:57 Novolog Vial Sliding Scale - SQ 2 units ACHS [facility] Administration Protocol Melatonin 3 mg 09/16/17 22:00 09/16/17 23:10 Melatonin PO 3 mg HS [facility] Administration Multivitamins/Minerals/Vitamin C 1 tab 09/17/17 10:00 09/17/17 09:39 Tab-A-Vit - PO 1 tab DAILY [facility] Administration Nifedipine 60 mg 09/17/17 10:00 09/17/17 09:40 Procardia Xl - PO 60 mg DAILY [facility] Administration Polyethylene Glycol 17 gm 09/17/17 10:00 09/17/17 09:44 Miralax (For Daily Use) - PO 17 grams DAILY [facility] Administration Psyllium Hydrophilic Mucilloid 5.85 gm 09/16/17 22:00 09/16/17 21:58 Metamucil (Sugar-Free) - PO 5.85 gm BID [facility] Administration Raltegravir 400 mg 09/16/17 22:00 09/17/17 09:43 Isentress - PO 400 mg BID [facility] Administration Ranitidine HCl 150 mg 09/17/17 10:00 09/17/17 09:40 Zantac - PO 150 mg DAILY [facility] Administration Ritonavir 100 mg 09/16/17 22:00 09/17/17 09:43 Norvir - PO 100 mg BID [facility] Administration Sodium Bicarbonate 650 mg 09/16/17 22:00 09/17/17 05:36 Sodium Bicarbonate - PO 650 mg TID [facility] Administration Tamsulosin HCl 0.4 mg 09/16/17 22:00 09/17/17 09:40 Flomax - PO 0.4 mg BID [facility] Administration Impression 1. 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 HIV 4. liver cirrhosis 5. Hep C 6. nephrolothiasis 7. DM 8. BPH 9. HTN 10. CLL Plan - will d/c fluids - renal function is improving, goal creatinine is about 2.2 which is what his baseline is - serologic workup negative - diuretics on hold, can give lasix if develops shortness of breath and overload - repeat labs in am - keep arb on hold Dr Wells
[2017-09-17] MEDS: PSYLLIUM 5.85 GM PACKET PO SCH ×2 (14:23→21:08)
[2017-09-17] MEDS ORDERED: RANITIDINE HCL 150 MG TABLET (FP) PO ONE (20:33)
[2017-09-17] MEDS ORDERED: PT OWN MED DRAWER 7, Y5N ONE (20:52)
[2017-09-17] MEDS ORDERED: INSULIN (NOVOLOG) ASPART 100 UNITS/ML 10ML VIAL ONE (21:02)
--- NOTE | 2017-09-17 22:03 | PN ---
Physical Exam: SUBJECTIVE: Patient seen and examined this morning at bedside. Tolerating diet. 1 small BM overnight. Denies abdominal pain, urinary urgency, frequency, dysuria, hematuria. Denies fevers, chills, chest pain, SOB, nausea, vomiting. OBJECTIVE: Vital Signs Period Temp Pulse Resp BP Sys/Ventura Pulse Ox Last 24 Hr 98.1 F-98.7 F 66-79 20-20 128-160/53-65 95-97 GENERAL: The patient is awake, alert, and fully oriented, in no acute distress. LUNGS: Breath sounds equal, clear to auscultation bilaterally, no wheezes, On 3L via NC HEART: Regular rate and rhythm, S1, S2 without murmur. ABDOMEN: Soft, nontender, remains distended, normoactive bowel sounds : Lara catheter draining clear yellow liquid UPPER EXTREMITIES: Chronic fine tremor of hands LOWER EXTREMITIES: 2+ pulses, 2+ pitting edema Laboratory Results - last 24 hr 09/14/17 09/16/17 09/17/17 10:05 21:43 05:21 WBC RBC Hgb Hct MCV MCH MCHC RDW Plt Count MPV Absolute Neuts (auto) Total Counted Neutrophils % Neutrophils % (Manual) Band Neutrophils % Lymphocytes % Lymphocytes % (Manual) Monocytes % Eosinophils % Basophils % Nucleated RBC % Platelet Estimate Sodium Potassium Chloride Carbon Dioxide Anion Gap BUN Creatinine Creat Clearance w eGFR POC Glucometer 139 115 Random Glucose Calcium Phosphorus Magnesium Total Bilirubin AST ALT Alkaline Phosphatase Total Protein Albumin Blood Type B NEGATIVE Antibody Screen Negative Crossmatch See Detail 09/17/17 09/17/17 09/17/17 05:30 05:30 11:55 WBC 34.0 H* RBC 3.12 L Hgb 9.3 L Hct 28.1 L MCV 90.0 MCH 29.7 MCHC 33.0 RDW 16.3 H Plt Count 95 L MPV 8.1 Absolute Neuts (auto) 0.7 Total Counted 100 Neutrophils % 2.1 L Neutrophils % (Manual) 1.0 L Band Neutrophils % 2.0 Lymphocytes % 97.1 H Lymphocytes % (Manual) 94.0 H* Monocytes % 0.8 L D Eosinophils % 0.0 Basophils % 0.0 Nucleated RBC % 0 Platelet Estimate Decreased Sodium 143 Potassium 4.3 Chloride 113 H Carbon Dioxide 19 L Anion Gap 11 BUN 100 H Creatinine 4.8 H Creat Clearance w eGFR 12.31 POC Glucometer 157 Random Glucose 115 H Calcium 7.9 L Phosphorus 5.2 H Magnesium 2.7 H Total Bilirubin 0.2 AST 22 ALT 25 D Alkaline Phosphatase 54 Total Protein 5.4 L Albumin 3.1 L Blood Type Antibody Screen Crossmatch 09/17/17 09/17/17 17:11 21:00 WBC RBC Hgb Hct MCV MCH MCHC RDW Plt Count MPV Absolute Neuts (auto) Total Counted Neutrophils % Neutrophils % (Manual) Band Neutrophils % Lymphocytes % Lymphocytes % (Manual) Monocytes % Eosinophils % Basophils % Nucleated RBC % Platelet Estimate Sodium Potassium Chloride Carbon Dioxide Anion Gap BUN Creatinine Creat Clearance w eGFR POC Glucometer 141 162 Random Glucose Calcium Phosphorus Magnesium Total Bilirubin AST ALT Alkaline Phosphatase Total Protein Albumin Blood Type Antibody Screen Crossmatch Microbiology 09/11/17 07:48 Blood - Peripheral Venous Blood Culture - Final NO GROWTH AFTER 5 DAYS INCUBATION 09/11/17 08:05 Blood - Peripheral Venous Blood Culture - Final NO GROWTH AFTER 5 DAYS INCUBATION 09/11/17 05:45 Urine - Urine - Catheterized Urine Culture - Final NO GROWTH OBTAINED Active Medications Carvedilol (Coreg -) 3.125 mg PO BID [facility] Last Admin: 09/17/17 21:03 Dose: 3.125 mg Darunavir (Prezista -) 600 mg PO BID [facility] Last Admin: 09/17/17 21:03 Dose: 600 mg Docusate Sodium (Colace -) 100 mg PO TID [facility] Last Admin: 09/17/17 21:03 Dose: 100 mg Hydrocortisone (Anusol 2.5% Hc Cream -) 1 applic [place] BID [facility] Last Admin: 09/17/17 21:08 Dose: 1 applic Insulin Aspart (Novolog Vial Sliding Scale -) 1 vial SQ ACHS [facility]; Protocol Last Admin: 09/17/17 21:03 Dose: 2 units Melatonin (Melatonin) 3 mg PO HS [facility] Last Admin: 09/16/17 23:10 Dose: 3 mg Multivitamins/Minerals/Vitamin C (Tab-A-Vit -) 1 tab PO DAILY [facility] Last Admin: 09/17/17 09:39 Dose: 1 tab Nifedipine (Procardia Xl -) 60 mg PO DAILY [facility] Last Admin: 09/17/17 09:40 Dose: 60 mg Polyethylene Glycol (Miralax (For Daily Use) -) 17 gm PO DAILY [facility] Last Admin: 09/17/17 09:44 Dose: 17 grams Psyllium Hydrophilic Mucilloid (Metamucil (Sugar-Free) -) 5.85 gm PO BID [facility] Last Admin: 09/17/17 21:08 Dose: Not Given Raltegravir (Isentress -) 400 mg PO BID [facility] Last Admin: 09/17/17 21:03 Dose: 400 mg Ranitidine HCl (Zantac -) 150 mg PO DAILY [facility] Last Admin: 09/17/17 09:40 Dose: 150 mg Ritonavir (Norvir -) 100 mg PO BID [facility] Last Admin: 09/17/17 21:03 Dose: 100 mg Sodium Bicarbonate (Sodium Bicarbonate -) 650 mg PO TID [facility] Last Admin: 09/17/17 21:02 Dose: 650 mg Tamsulosin HCl (Flomax -) 0.4 mg PO BID [facility] Last Admin: 09/17/17 21:03 Dose: 0.4 mg IMAGING: - CXR: Left axillary clips. Chronic changes left base. No acute chest pathology. - Bladder US: A Lara catheter is seen in place. At the time of examination the urinary bladder volume is approximately 84 mL. The urinary bladder demonstrates no gross mass lesion or calculus. There is no free intraperitoneal fluid within the lower pelvis. Mild prostate enlargement. - Kidney/Renal US: Prominent renal central sinus echoes, bilaterally suggestive of renal sinus lipomatosis. Small bilateral renal cysts with the largest cyst in the left kidney, anteriorly measuring 1.7 cm demonstrating a thin septation consistent with a complex cyst. Significant splenomegaly. - CT Abdomen Pelvis: Small right kidney relative to the left with small bilateral renal cysts. Nonobstructing left renal stone measuring 7 mm. There is stranding of the left perinephric fat with a small amount of fluid. Mild dilatation of the left renal pelvis. However, there is no gross evidence of hydroureter or obstructing ureteral stone, bilaterally. Hepatosplenomegaly with slightly lobulated hepatic contour suggestive of cirrhosis and questionable varicosis veins for which correlation with contrast-enhanced CT scan would be helpful. 1 cm faint ill-defined subcapsular hyperdensities seen along inferior margin of the spleen, laterally which is nonspecific. It may represent a hemangioma. A small subcapsular hematoma could not be excluded. Multiple mesenteric and retroperitoneal enlarged lymph nodes measuring up to 2.2 cm for which further evaluation is recommended. 2.8 cm right adrenal low-attenuation nodule that may represent an adrenal adenoma. Likely accessory spleen measuring 2.2 cm. Diverticulosis coli without diverticulitis at the junction of the distal descending and proximal sigmoid colon. No extraluminal air or abscess/ drainable collection is identified. There is a typographical error in the last sentence of the impression that should read; Diverticulosis coli with suggestion of mild colitis/ diverticulitis at the junction of the distal descending and proximal sigmoid colon. No extraluminal air or abscess/drainable collection is identified. - Duplex 2 Legs: No DVT is identified involving either leg. - Abdomen US: Diffuse thickening of the gallbladder wall with questionable adenomyomatosis. No gallstones or pericholecystic free fluid are identified. Marked splenomegaly. Questionable trace of free fluid in the right upper quadrant. Otherwise, there is no evidence of ascites in the left upper quadrant , right lower and left lower quadrant. - CXR (09/16): Little change since prior study. Clearing of left base atelectasis. - ECHO: LV Systolic function is normal, RV systolic function is normal, Mild Mitral annular calcification, Mild MR, Mild TR, Mild , Trace pulmonic valvular regurgitation, moderately dilated IVC, No pericardial effusion - EKG (09/11) : NSR - EKG (09/16): NORMAL SINUS RHYTHM, NONSPECIFIC T WAVE ABNORMALITY lvh repolarization abnormalities, PROLONGED QT, ABNORMAL ECG WHEN COMPARED WITH ECG OF 11-SEP-2017 07:38, - EKG (09/16): NORMAL SINUS RHYTHM, LEFT VENTRICULAR HYPERTROPHY WITH QRS WIDENING , T WAVE ABNORMALITY, CONSIDER INFEROLATERAL ISCHEMIA vs lvh strain pattern, PROLONGED QT, ABNORMAL ECG WHEN COMPARED WITH ECG OF 16-SEP-2017 04:47, NO SIGNIFICANT CHANGE WAS FOUND - ECHO (09/17): No Regional wall motion abnormalities. EF 60-65%, Moderate to severe LA Dilation, Mild MR, Mild TR, Severe pulmonary HTN ASSESSMENT/PLAN: 66 y/o M with PMH CLL, HIV, BPH, CKD (baseline Cr 2), NIDDM, Cirrhosis, hx of IVDA who presented to ED with complaint of incomplete urinary voiding and lower abdominal fullness since Thrus associated with decreased sleep, and night sweats. Exam significant for heart murmur, lung crackles, abdominal distension, pedal edema. Labs sig for leukocytosis, uremia, thrombocytopenia, proteinuria. Pt [id number] for RICHY on CKD. 1. RICHY on CKD stage 4 - Baseline BUN/Cr of 45/2.6; 124/6.0 today - UA: 3+ proteinuria - CT A/P: Nonobstructing left renal stone measuring 7 mm. Mild dilatation of the left renal pelvis. However, there is no gross evidence of hydroureter or obstructing ureteral stone, bilaterally. - Likely multifactorial due to decreased PO intake and increased lasix, metalazone and losartan with component of urinary retention - Lara placed in ED, Currently draining clear yellow urine - Monitor urine output, Strict I/Os - Nephrology (Dr. Wells) consulted, appreciate rec's, will hold Lasix and Arb , renal workup pending - Kidney/Renal US and Bladder US Noted above - 2 unit pRBC transfused (09/14, 09/16) - D/c'ed 1/ Normal Saline @ 83 mls/hr 2. Chest pain - EKG (09/16): NSR, NONSPECIFIC T WAVE ABNORMALITY lvh repolarization abnormalities, PROLONGED QT - EKG (09/16): NSR, LVH WITH QRS WIDENING, T WAVE ABNORMALITY, CONSIDER INFEROLATERAL ISCHEMIA vs lvh strain pattern, PROLONGED QT - ECHO (09/17): No Regional wall motion abnormalities. EF 60-65%, Moderate to severe LA Dilation, Mild MR, Mild TR, Severe pulmonary HTN - Tropnonin 0.03 --> 0.03 --> 0.02 - Cardiology (Dr. Sparks) consulted, Appreciate rec's, will give ASA when if no contraindications from heme/onc, Will need stress test once stable - S/P total 2 units PRBC (09/14 and 09/16) 3. Divirticulitis - CT A/P: Diverticulosis coli with suggestion of mild colitis/ diverticulitis at the junction of the distal descending and proximal sigmoid colon - Immunocompromised hx (HIV, CLL) however currently Asymptomatic, Benign Abdominal physical exam - ID (Dr. Bustillos) consulted, appreciate rec's, f/u cultures - Completed 7 day course of Flagyl 500mg Q8H-IV - Completed 7 day course of Ceftriaxone 2 gm IV DAILY - Continue to monitor 3. HIV - Continue home HAART as per ID - Consider renally dosing - Neutropenic percautions 4. CLL - Per [facility] records, patient is stable with WBC at 60. No interventions indicated unless symptomatic or WBC > 100 - Hepatosplenomegaly noted on CT - Thrombocytopenia of 85 - Hematology/oncology (Dr. Kimble) consulted, appreciate rec's, Will monitor hemogram and check immunoglobulins 5. Hx of Cirrhosis - CT A/P: Hepatosplenomegaly with slightly lobulated hepatic contour suggestive of cirrhosis and questionable varicosis veins - GI Consulted, will follow rec's, Dark stools FOBT positive x1. No further dark stools, Patient to follow up with [facility] next week for management 6. HTN - Hold Lasix and Arb as per Renal - Continue home dose Carvedilol 3.125 mg PO BID - Continue home dose Nifedipine 60 mg PO DAILY 7. BPH - Lara placed in ED, Currently draining clear yellow urine - Continue Flomax 0.4 BID 8. NIDDM - Random Glucose 143 - Hold home dose glipizide - ISS & BGM ACHS 9. FEN - PO Fluids - Lytes wnl, replete as needed - Neutropenic diet 10. PPx - Heparin SQ TID Visit type - Emergency Visit Emergency Visit: Yes ED Registration Date: 09/11/17 Care time: The patient presented to the Emergency Department on the above date and was hospitalized for further evaluation of their emergent condition. - New Patient This patient is new to me today: No - Critical Care Critical Care patient: No
[2017-09-17] MEDS: MELATONIN 1 MG TABLET PO SCH (23:04)
[2017-09-18] MEDS: DOCUSATE SODIUM 100 MG CAPSULE (FP) PO SCH ×3 (05:50→21:59)
[2017-09-18] MEDS: SODIUM BICARBONATE 650 MG TABLET PO SCH ×3 (05:50→21:59)
[2017-09-18] MEDS: INSULIN SLIDING SCALE (NOVOLOG) 1 VIAL SQ SCH ×4 (06:07→22:00)
[2017-09-18 06:49] LABS: BASO % 0.1 % (0-2.0); HEMATOCRIT 26.8 % (35.4-49); HEMOGLOBIN 8.8 GM/dL (11.7-16.9); LYMPH % 97.5 % (8-40); MCH 29.8 pg (25.7-33.7); MCHC 32.8 g/dl (32.0-35.9); MEAN CELL VOLUME 90.6 fl (80-96); MONO % 0.8 % (3.8-10.2); NEUT % 1.6 % (42.8-82.8); PLATELET COUNT 89 K/MM3 (134-434); RBC 2.96 M/mm3 (4.00-5.60); RDW 16.5 % (11.9-15.9)
[2017-09-18 06:57] LABS: WHITE BLOOD COUNT 34.2 K/mm3 (4.0-10.0)
[2017-09-18 07:08] LABS: ALBUMIN 3.1 g/dl (3.4-5.0); ALK PHOS 49 U/L (45-117); ANION GAP 9 (8-16); BILIRUBIN,TOTAL 0.2 mg/dL (0.2-1.0); BLOOD UREA NITROGEN 87 mg/dL (7-18); CHLORIDE 118 mmol/L (98-107); CO2 20 mmol/L (21-32); CREATININE 4.3 mg/dL (0.7-1.3); GLUCOSE,RANDOM 108 mg/dL (74-106); MAGNESIUM 2.5 mg/dL (1.8-2.4); POTASSIUM 4.4 mmol/L (3.5-5.1); SGOT/AST 19 U/L (15-37); SGPT/ALT 24 U/L (12-78); SODIUM 147 mmol/L (136-145); TOT PROT 5.2 g/dl (6.4-8.2)
[2017-09-18] MEDS ORDERED: PT OWN MED DRAWER 7, Y5N ONE ×2 (08:51→21:53)
[2017-09-18] MEDS: NIFEdipine E.R 60 MG TABLET (UD) PO SCH (09:27)
[2017-09-18] MEDS: DARUNAVIR ETHANOLATE 600 MG TAB PO SCH ×2 (09:28→21:59)
[2017-09-18] MEDS: RITONAVIR 100 MG TABLET PO SCH ×2 (09:28→21:59)
[2017-09-18] MEDS: RANITIDINE HCL 150 MG TABLET (FP) PO SCH (09:28)
[2017-09-18] MEDS: RALTEGRAVIR POTASSIUM 400 MG TAB PO SCH ×2 (09:28→21:59)
[2017-09-18] MEDS: TAMSULOSIN HCL 0.4 MG CAP.ER.24H (FP) PO SCH ×2 (09:28→21:59)
[2017-09-18] MEDS: RILPIVIRINE HCL 25 MG TABLET PO SCH (09:28)
[2017-09-18] MEDS: CARVEDILOL 3.125 MG TABLET (FP) PO SCH ×2 (09:29→21:59)
[2017-09-18] MEDS: MULTIVITAMINS (DAILY MVI) TABLET (FP) PO SCH (09:29)
[2017-09-18] MEDS: POLYETHYLENE GLYCOL 3350 119 GM BTL PO SCH (09:29)
[2017-09-18] MEDS: PSYLLIUM 5.85 GM PACKET PO SCH ×2 (09:29→21:59)
[2017-09-18] MEDS: HYDROCORTISONE 2.5% TOPICAL CREAM 30 GM TUBE PR SCH ×2 (09:32→21:59)
[2017-09-18] MEDS ORDERED: INSULIN (NOVOLOG) ASPART 100 UNITS/ML 10ML VIAL ONE (11:39)
--- NOTE | 2017-09-18 13:07 | PN ---
Progress Note, Physician Chief Complaint: Pt A&Ox3; lying in bed; no further chest pain; no palpitations. Legs became more swollen while he wsa dangling them, so eh is n0w supine. History of Present Illness: 66 year old black male c/o urinary retention since 10 am 09/10/2017Patient reports that he has a history of kidney stones, BPH, liver cirrhosis, HIV, hypertension.Denies fevers/chills, nausea, vomiting, abdominal pain. Patient reports suprapubic pain and tenderness with increased abdominal distention. 09/11/17 05:54 - Current Medication List Current Medications: Active Medications Carvedilol (Coreg -) 3.125 mg PO BID [facility] Last Admin: 09/18/17 09:29 Dose: 3.125 mg Darunavir (Prezista -) 600 mg PO BID [facility] Last Admin: 09/18/17 09:28 Dose: 600 mg Docusate Sodium (Colace -) 100 mg PO TID [facility] Last Admin: 09/18/17 05:50 Dose: 100 mg Hydrocortisone (Anusol 2.5% Hc Cream -) 1 applic [place] BID [facility] Last Admin: 09/18/17 09:32 Dose: 1 applic Insulin Aspart (Novolog Vial Sliding Scale -) 1 vial SQ ACHS [facility]; Protocol Last Admin: 09/18/17 11:44 Dose: 2 units Melatonin (Melatonin) 3 mg PO HS [facility] Last Admin: 09/17/17 23:04 Dose: 3 mg Multivitamins/Minerals/Vitamin C (Tab-A-Vit -) 1 tab PO DAILY [facility] Last Admin: 09/18/17 09:29 Dose: 1 tab Nifedipine (Procardia Xl -) 60 mg PO DAILY [facility] Last Admin: 09/18/17 09:27 Dose: 60 mg Polyethylene Glycol (Miralax (For Daily Use) -) 17 gm PO DAILY [facility] Last Admin: 09/18/17 09:29 Dose: 17 grams Psyllium Hydrophilic Mucilloid (Metamucil (Sugar-Free) -) 5.85 gm PO BID [facility] Last Admin: 09/18/17 09:29 Dose: 5.85 gm Raltegravir (Isentress -) 400 mg PO BID [facility] Last Admin: 09/18/17 09:28 Dose: 400 mg Ranitidine HCl (Zantac -) 150 mg PO DAILY [facility] Last Admin: 09/18/17 09:28 Dose: 150 mg Ritonavir (Norvir -) 100 mg PO BID [facility] Last Admin: 09/18/17 09:28 Dose: 100 mg Sodium Bicarbonate (Sodium Bicarbonate -) 650 mg PO TID [facility] Last Admin: 09/18/17 05:50 Dose: 650 mg Tamsulosin HCl (Flomax -) 0.4 mg PO BID [facility] Last Admin: 09/18/17 09:28 Dose: 0.4 mg - Objective Vital Signs: Vital Signs Temperature 98.2 F 09/18/17 10:00 Pulse Rate 72 09/18/17 10:00 Respiratory Rate 18 09/18/17 10:00 Blood Pressure 139/57 09/18/17 10:00 O2 Sat by Pulse Oximetry (%) 95 09/18/17 09:00 Constitutional: Yes: Calm Eyes: Yes: WNL HENT: Yes: WNL Neck: Yes: WNL Cardiovascular: Yes: S1, S2, S4 Respiratory: Yes: Regular Gastrointestinal: Yes: Soft ...Rectal Exam: Yes: Deferred Genitourinary: No: Anuria Breast(s): Yes: WNL Musculoskeletal: Yes: WNL Extremities: Yes: Cool Edema: Yes Edema: LLE: 1+, RLE: 1+ Peripheral Pulses WNL: Yes Neurological: Yes: Alert, Oriented Psychiatric: Yes: WNL Labs: CBC, BMP 09/18/17 06:00 09/18/17 06:00 INR, PTT INR 1.12 (0.83-1.09) 09/11/17 08:05 Abnormal Lab Results 09/18/17 09/19/17 09/19/17 06:00 06:00 06:00 WBC 32.1 H* RBC 2.99 L Hgb 8.9 L Hct 27.0 L RDW 16.1 H Plt Count 84 L Neutrophils % 1.2 L Neutrophils % (Manual) 1.0 L Lymphocytes % 98.4 H Lymphocytes % (Manual) 97.0 H* Monocytes % 0.4 L Monocytes % (Manual) 2 L Sodium 146 H Chloride 117 H Carbon Dioxide 19 L BUN 81 H Creatinine 4.1 H Random Glucose 112 H Calcium 7.9 L Total Protein 5.3 L Albumin 3.1 L - ....Imaging Chest X-ray: Image Reviewed (no acute CHF) EKG: Image Reviewed (NSR; LVH) Problem List - Problems (1) Acute on chronic diastolic (congestive) heart failure Assessment/Plan: On carvedilol and nifedipine. F/u Is and Os, daily weight, electrolytes, BUN/Cr. ECHO: normal jLVEF; mild MR and TR; severe pulmonary HTN Code(s): I50.33 - ACUTE ON CHRONIC DIASTOLIC (CONGESTIVE) HEART FAILURE (2) Moderate to severe pulmonary hypertension Assessment/Plan: RVSP 61 mmHg, with normal LVEF. Code(s): I27.20 - PULMONARY HYPERTENSION, UNSPECIFIED (3) Atypical chest pain Code(s): R07.89 - OTHER CHEST PAIN (4) Cirrhosis of liver Code(s): K74.60 - UNSPECIFIED CIRRHOSIS OF LIVER (5) Diverticulitis Code(s): K57.92 - DVTRCLI OF INTEST, PART UNSP, W/O PERF OR ABSCESS W/O BLEED (6) HIV (human immunodeficiency virus infection) Code(s): B20 - HUMAN IMMUNODEFICIENCY VIRUS [HIV] DISEASE (7) Renal insufficiency Code(s): N28.9 - DISORDER OF KIDNEY AND URETER, UNSPECIFIED (8) Diabetes Code(s): E11.9 - TYPE 2 DIABETES MELLITUS WITHOUT COMPLICATIONS (9) Thrombocytopenia Code(s): D69.6 - THROMBOCYTOPENIA, UNSPECIFIED (10) Anemia Code(s): D64.9 - ANEMIA, UNSPECIFIED (11) Leukocytosis Code(s): D72.829 - ELEVATED WHITE BLOOD CELL COUNT, UNSPECIFIED
--- NOTE | 2017-09-18 13:28 | PN ---
Progress Note, Physician History of Present Illness: Pt seen and examined at bedside. He is awake and alert. He feels that his breathing is better than yesterday. He still has lower ext edema. - Current Medication List Current Medications: Active Medications Carvedilol (Coreg -) 3.125 mg PO BID [facility] Last Admin: 09/18/17 09:29 Dose: 3.125 mg Darunavir (Prezista -) 600 mg PO BID [facility] Last Admin: 09/18/17 09:28 Dose: 600 mg Docusate Sodium (Colace -) 100 mg PO TID [facility] Last Admin: 09/18/17 05:50 Dose: 100 mg Hydrocortisone (Anusol 2.5% Hc Cream -) 1 applic AL BID [facility] Last Admin: 09/18/17 09:32 Dose: 1 applic Insulin Aspart (Novolog Vial Sliding Scale -) 1 vial SQ ACHS [facility]; Protocol Last Admin: 09/18/17 11:44 Dose: 2 units Melatonin (Melatonin) 3 mg PO HS [facility] Last Admin: 09/17/17 23:04 Dose: 3 mg Multivitamins/Minerals/Vitamin C (Tab-A-Vit -) 1 tab PO DAILY [facility] Last Admin: 09/18/17 09:29 Dose: 1 tab Nifedipine (Procardia Xl -) 60 mg PO DAILY [facility] Last Admin: 09/18/17 09:27 Dose: 60 mg Polyethylene Glycol (Miralax (For Daily Use) -) 17 gm PO DAILY [facility] Last Admin: 09/18/17 09:29 Dose: 17 grams Psyllium Hydrophilic Mucilloid (Metamucil (Sugar-Free) -) 5.85 gm PO BID [facility] Last Admin: 09/18/17 09:29 Dose: 5.85 gm Raltegravir (Isentress -) 400 mg PO BID [facility] Last Admin: 09/18/17 09:28 Dose: 400 mg Ranitidine HCl (Zantac -) 150 mg PO DAILY [facility] Last Admin: 09/18/17 09:28 Dose: 150 mg Ritonavir (Norvir -) 100 mg PO BID [facility] Last Admin: 09/18/17 09:28 Dose: 100 mg Sodium Bicarbonate (Sodium Bicarbonate -) 650 mg PO TID [facility] Last Admin: 09/18/17 05:50 Dose: 650 mg Tamsulosin HCl (Flomax -) 0.4 mg PO BID [facility] Last Admin: 09/18/17 09:28 Dose: 0.4 mg - Objective Vital Signs: Vital Signs Temperature 98.2 F 09/18/17 10:00 Pulse Rate 72 09/18/17 10:00 Respiratory Rate 18 09/18/17 10:00 Blood Pressure 139/57 09/18/17 10:00 O2 Sat by Pulse Oximetry (%) 95 09/18/17 09:00 Constitutional: Yes: Calm Eyes: Yes: Conjunctiva Clear HENT: Yes: Atraumatic Neck: Yes: Supple Cardiovascular: Yes: S1, S2 Respiratory: Yes: CTA Bilaterally, On Nasal O2 Gastrointestinal: Yes: Normal Bowel Sounds, Soft Genitourinary: Yes: Ortiz Present Musculoskeletal: Yes: WNL Edema: Yes Edema: LLE: 2+, RLE: 2+ Neurological: Yes: Oriented Psychiatric: Yes: Oriented Labs: CBC, BMP 09/18/17 06:00 09/18/17 06:00 INR, PTT INR 1.12 (0.83-1.09) 09/11/17 08:05 Problem List - Problems (1) Acute urinary retention Code(s): R33.8 - OTHER RETENTION OF URINE (2) Cirrhosis of liver Code(s): K74.60 - UNSPECIFIED CIRRHOSIS OF LIVER (3) Renal insufficiency Code(s): N28.9 - DISORDER OF KIDNEY AND URETER, UNSPECIFIED (4) Chronic hepatitis C Code(s): B18.2 - CHRONIC VIRAL HEPATITIS C (5) Human immunodeficiency virus (HIV) seropositivity Code(s): Z21 - ASYMPTOMATIC HUMAN IMMUNODEFICIENCY VIRUS INFECTION STATUS Assessment/Plan Current Medications Generic Name Dose Route Start Last Admin Trade Name Willq PRN Reason Stop Dose Admin Carvedilol 3.125 mg 09/16/17 22:00 09/18/17 09:29 Coreg - PO 3.125 mg BID [facility] Administration Darunavir 600 mg 09/16/17 22:00 09/18/17 09:28 Prezista - PO 600 mg BID [facility] Administration Docusate Sodium 100 mg 09/16/17 22:00 09/18/17 05:50 Colace - PO 100 mg TID [facility] Administration Hydrocortisone 1 applic 09/16/17 22:00 09/18/17 09:32 Anusol 2.5% Hc Cream - AL 1 applic BID [facility] Administration Insulin Aspart 1 vial 09/16/17 22:00 09/18/17 11:44 Novolog Vial Sliding Scale - SQ 2 units ACHS [facility] Administration Protocol Melatonin 3 mg 09/16/17 22:00 09/17/17 23:04 Melatonin PO 3 mg HS [facility] Administration Multivitamins/Minerals/Vitamin C 1 tab 09/17/17 10:00 09/18/17 09:29 Tab-A-Vit - PO 1 tab DAILY [facility] Administration Nifedipine 60 mg 09/17/17 10:00 09/18/17 09:27 Procardia Xl - PO 60 mg DAILY [facility] Administration Polyethylene Glycol 17 gm 09/17/17 10:00 09/18/17 09:29 Miralax (For Daily Use) - PO 17 grams DAILY [facility] Administration Psyllium Hydrophilic Mucilloid 5.85 gm 09/16/17 22:00 09/18/17 09:29 Metamucil (Sugar-Free) - PO 5.85 gm BID [facility] Administration Raltegravir 400 mg 09/16/17 22:00 09/18/17 09:28 Isentress - PO 400 mg BID [facility] Administration Ranitidine HCl 150 mg 09/17/17 10:00 09/18/17 09:28 Zantac - PO 150 mg DAILY [facility] Administration Ritonavir 100 mg 09/16/17 22:00 09/18/17 09:28 Norvir - PO 100 mg BID [facility] Administration Sodium Bicarbonate 650 mg 09/16/17 22:00 09/18/17 05:50 Sodium Bicarbonate - PO 650 mg TID [facility] Administration Tamsulosin HCl 0.4 mg 09/16/17 22:00 09/18/17 09:28 Flomax - PO 0.4 mg BID [facility] Administration Impression 1. RICHY 2. CKD with baseline care transport nurse 2.2 3. HIV 4. liver cirrhosis 5. Hep C 6. nephrolothiasis 7. DM 8. BPH 9. HTN 10. CLL Plan - renal function is improving - can d/c ortiz - pt off of fluids - keep arb on hold - diuretics on hold for now - monitor volume status - serologic workup negative - diuretics on hold, can give lasix if develops shortness of breath and overload Dr Wells
--- NOTE | 2017-09-18 13:49 | PN ---
Teaching Attending Note Name of Resident: Irma Landa ATTENDING PHYSICIAN STATEMENT I saw and evaluated the patient. I reviewed the resident's note and discussed the case with the resident. I agree with the resident's findings and plan as documented. SUBJECTIVE:c/o SOB on exertion. Max Cp, orthopnea, fever, chills, N/V/C/D. states he continues to have LE swelling and pain OBJECTIVE: Last Vital Signs Temp Pulse Resp BP Pulse Ox 98.2 F 72 18 139/57 95 09/18/17 10:00 09/18/17 10:00 09/18/17 10:00 09/18/17 10:00 09/18/17 09:00 Intake & Output 09/15/17 09/16/17 09/17/17 09/18/17 23:59 23:59 23:59 23:59 Intake Total 1696 1030 514 350 Output Total 3450 1800 3750 2400 Balance -1575 -770 -0476 -2049 Weight 182 lb General NAD CV S1 S2 RRR no murmur/rub/gallop Lungs CTA B/L no wheezing/rales/rhonchi Abdomen soft +distended Extremities 3+ pitting edema B/L LE ASSESSMENT AND PLAN: 66 yo M with PMH CKD, CLL, Cirrhosis with portal HTN, IVDU, HIV, HCV s/p treatment presented with RICHY, hyperkalemia and urinary symptoms. 1. Chest pain- no repeat episodes. cardiac markers neg. no events on cardiac monitoring. will need NMST prior to discharge. Cardio on board 2. Acute on CKD stage IV- baseline Cr 2.2. slowly trending down. was on low dose IVF which was stopped yesterday. will cont to hold diuretics and ARBS at this time. on bicarb. nephrology on board 3. B/L LE edema-due to volume overload. doppler neg for DVT. will hold lasix for nows. start TREVER and leg elevation. Echo showing impaired relaxation. 4. Hyperkalemia- resolved 5. Acute diverticulitis- symptoms resolved. completed abx course. can have colonoscopy in 6-8 weeks. 6. Anemia- multifactorial. s/p 2 units PRBC this hospital stay. no indication for further workup at this time. 7. Thrombocytopenia- stable. no signs of bleeding 8. Cirrhosis- compensated. no signs of withdrawal. will re-start lactulose which pt states is home medication. needs to f/u [facility] as outpatient 9. CLL- with lymphocytic predominance and absolute neutropenia. leukocytosis is stable. no signs of acute infection. no indication for abx. oncology on patient. neutropenic precautions 10. HTN- controlled 11. h/o IVDA 12. HCV treated 13. HIV on HARRT 14. PT eval
[2017-09-18] MEDS ORDERED: LACTULOSE 20 GM/30 ML UDC (FOR ORAL USE ONLY) PO PRN (17:22)
[2017-09-18] MEDS: MELATONIN 1 MG TABLET PO SCH (22:54)
--- NOTE | 2017-09-18 23:11 | PN ---
Physical Exam: SUBJECTIVE: Patient seen and examined this morning at bedside. Slept well over night, request melatonin. Tolerating diet, denies nausea, vomiting. Continues to have indigestion however. Denies abdominal pain, urinary urgency, frequency, dysuria, hematuria. Denies fevers, chills, chest pain, SOB. OBJECTIVE: Vital Signs Period Temp Pulse Resp BP Sys/Ventura Pulse Ox Last 24 Hr 98.1 F-99 F 65-75 16-20 126-147/57-80 95-95 GENERAL: The patient is awake, alert, and fully oriented, in no acute distress. LUNGS: Breath sounds equal, clear to auscultation bilaterally, no wheezes, On 3L via NC HEART: Regular rate and rhythm, S1, S2 without murmur. ABDOMEN: Soft, nontender, remains distended, normoactive bowel sounds : Lara catheter draining clear yellow liquid UPPER EXTREMITIES: Chronic fine tremor of hands LOWER EXTREMITIES: 2+ pulses, 2+ pitting edema b/l Laboratory Results - last 24 hr 09/18/17 09/18/17 09/18/17 05:50 06:00 06:00 WBC 34.2 H* RBC 2.96 L Hgb 8.8 L Hct 26.8 L MCV 90.6 MCH 29.8 MCHC 32.8 RDW 16.5 H Plt Count 89 L MPV 8.0 Absolute Neuts (auto) 0.5 Total Counted 100 Neutrophils % 1.6 L Neutrophils % (Manual) 1.0 L Lymphocytes % 97.5 H Lymphocytes % (Manual) 97.0 H* Monocytes % 0.8 L Monocytes % (Manual) 2 L Eosinophils % 0.0 Basophils % 0.1 D Nucleated RBC % 0 Sodium 147 H Potassium 4.4 Chloride 118 H Carbon Dioxide 20 L Anion Gap 9 BUN 87 H Creatinine 4.3 H Creat Clearance w eGFR 13.98 POC Glucometer 118 Random Glucose 108 H Calcium 8.0 L Phosphorus 5.0 H Magnesium 2.5 H Total Bilirubin 0.2 AST 19 ALT 24 Alkaline Phosphatase 49 Total Protein 5.2 L Albumin 3.1 L TSH 1.01 Microbiology 09/11/17 07:48 Blood - Peripheral Venous Blood Culture - Final NO GROWTH AFTER 5 DAYS INCUBATION 09/11/17 08:05 Blood - Peripheral Venous Blood Culture - Final NO GROWTH AFTER 5 DAYS INCUBATION 09/11/17 05:45 Urine - Urine - Catheterized Urine Culture - Final NO GROWTH OBTAINED Active Medications Carvedilol (Coreg -) 3.125 mg PO BID [facility] Last Admin: 09/18/17 21:59 Dose: 3.125 mg Darunavir (Prezista -) 600 mg PO BID [facility] Last Admin: 09/18/17 21:59 Dose: 600 mg Docusate Sodium (Colace -) 100 mg PO TID [facility] Last Admin: 09/18/17 21:59 Dose: 100 mg Hydrocortisone (Anusol 2.5% Hc Cream -) 1 applic [place] BID [facility] Last Admin: 09/18/17 21:59 Dose: 1 applic Insulin Aspart (Novolog Vial Sliding Scale -) 1 vial SQ ACHS [facility]; Protocol Last Admin: 09/18/17 22:00 Dose: Not Given Lactulose (Cephulac (Oral Use)) 20 gm PO Q12H PRN PRN Reason: CONSTIPATION Melatonin (Melatonin) 3 mg PO [facility] Last Admin: 09/18/17 22:54 Dose: 3 mg Multivitamins/Minerals/Vitamin C (Tab-A-Vit -) 1 tab PO DAILY [facility] Last Admin: 09/18/17 09:29 Dose: 1 tab Nifedipine (Procardia Xl -) 60 mg PO DAILY [facility] Last Admin: 09/18/17 09:27 Dose: 60 mg Polyethylene Glycol (Miralax (For Daily Use) -) 17 gm PO DAILY [facility] Last Admin: 09/18/17 09:29 Dose: 17 grams Psyllium Hydrophilic Mucilloid (Metamucil (Sugar-Free) -) 5.85 gm PO BID [facility] Last Admin: 09/18/17 21:59 Dose: 5.85 gm Raltegravir (Isentress -) 400 mg PO BID [facility] Last Admin: 09/18/17 21:59 Dose: 400 mg Ranitidine HCl (Zantac -) 150 mg PO DAILY [facility] Last Admin: 09/18/17 09:28 Dose: 150 mg Ritonavir (Norvir -) 100 mg PO BID [facility] Last Admin: 09/18/17 21:59 Dose: 100 mg Sodium Bicarbonate (Sodium Bicarbonate -) 650 mg PO TID [facility] Last Admin: 09/18/17 21:59 Dose: 650 mg Tamsulosin HCl (Flomax -) 0.4 mg PO BID [facility] Last Admin: 09/18/17 21:59 Dose: 0.4 mg IMAGING: - CXR: Left axillary clips. Chronic changes left base. No acute chest pathology. - Bladder US: A Lara catheter is seen in place. At the time of examination the urinary bladder volume is approximately 84 mL. The urinary bladder demonstrates no gross mass lesion or calculus. There is no free intraperitoneal fluid within the lower pelvis. Mild prostate enlargement. - Kidney/Renal US: Prominent renal central sinus echoes, bilaterally suggestive of renal sinus lipomatosis. Small bilateral renal cysts with the largest cyst in the left kidney, anteriorly measuring 1.7 cm demonstrating a thin septation consistent with a complex cyst. Significant splenomegaly. - CT Abdomen Pelvis: Small right kidney relative to the left with small bilateral renal cysts. Nonobstructing left renal stone measuring 7 mm. There is stranding of the left perinephric fat with a small amount of fluid. Mild dilatation of the left renal pelvis. However, there is no gross evidence of hydroureter or obstructing ureteral stone, bilaterally. Hepatosplenomegaly with slightly lobulated hepatic contour suggestive of cirrhosis and questionable varicosis veins for which correlation with contrast-enhanced CT scan would be helpful. 1 cm faint ill-defined subcapsular hyperdensities seen along inferior margin of the spleen, laterally which is nonspecific. It may represent a hemangioma. A small subcapsular hematoma could not be excluded. Multiple mesenteric and retroperitoneal enlarged lymph nodes measuring up to 2.2 cm for which further evaluation is recommended. 2.8 cm right adrenal low-attenuation nodule that may represent an adrenal adenoma. Likely accessory spleen measuring 2.2 cm. Diverticulosis coli without diverticulitis at the junction of the distal descending and proximal sigmoid colon. No extraluminal air or abscess/ drainable collection is identified. There is a typographical error in the last sentence of the impression that should read; Diverticulosis coli with suggestion of mild colitis/ diverticulitis at the junction of the distal descending and proximal sigmoid colon. No extraluminal air or abscess/drainable collection is identified. - Duplex 2 Legs: No DVT is identified involving either leg. - Abdomen US: Diffuse thickening of the gallbladder wall with questionable adenomyomatosis. No gallstones or pericholecystic free fluid are identified. Marked splenomegaly. Questionable trace of free fluid in the right upper quadrant. Otherwise, there is no evidence of ascites in the left upper quadrant , right lower and left lower quadrant. - CXR (09/16): Little change since prior study. Clearing of left base atelectasis. - ECHO: LV Systolic function is normal, RV systolic function is normal, Mild Mitral annular calcification, Mild MR, Mild TR, Mild , Trace pulmonic valvular regurgitation, moderately dilated IVC, No pericardial effusion - EKG (09/11) : NSR - EKG (09/16): NORMAL SINUS RHYTHM, NONSPECIFIC T WAVE ABNORMALITY lvh repolarization abnormalities, PROLONGED QT, ABNORMAL ECG WHEN COMPARED WITH ECG OF 11-SEP-2017 07:38, - EKG (09/16): NORMAL SINUS RHYTHM, LEFT VENTRICULAR HYPERTROPHY WITH QRS WIDENING , T WAVE ABNORMALITY, CONSIDER INFEROLATERAL ISCHEMIA vs lvh strain pattern, PROLONGED QT, ABNORMAL ECG WHEN COMPARED WITH ECG OF 16-SEP-2017 04:47, NO SIGNIFICANT CHANGE WAS FOUND - ECHO (09/17): No Regional wall motion abnormalities. EF 60-65%, Moderate to severe LA Dilation, Mild MR, Mild TR, Severe pulmonary HTN ASSESSMENT/PLAN: 66 y/o M with PMH CLL, HIV, BPH, CKD (baseline Cr 2), NIDDM, Cirrhosis, hx of IVDA who presented to ED with complaint of incomplete urinary voiding and lower abdominal fullness since Thrus associated with decreased sleep, and night sweats. Exam significant for heart murmur, lung crackles, abdominal distension, pedal edema. Labs sig for leukocytosis, uremia, thrombocytopenia, proteinuria. Pt [id number] for RICHY on CKD. 1. RICHY on CKD stage 4 - Baseline BUN/Cr of 45/2.6; 87/4.3 today - UA: 3+ proteinuria - CT A/P: Nonobstructing left renal stone measuring 7 mm. Mild dilatation of the left renal pelvis. However, there is no gross evidence of hydroureter or obstructing ureteral stone, bilaterally. - Likely multifactorial due to decreased PO intake and increased lasix, metalazone and losartan with component of urinary retention - Lara placed in ED, Currently draining clear yellow urine - Monitor urine output, Strict I/Os - Nephrology (Dr. Wells) consulted, appreciate rec's, will hold Lasix and Arb , renal workup pending - Kidney/Renal US and Bladder US Noted above - 2 unit pRBC transfused (09/14, 09/16) - D/c'ed 1/ Normal Saline @ 83 mls/hr 2. Chest pain - EKG (09/16): NSR, NONSPECIFIC T WAVE ABNORMALITY lvh repolarization abnormalities, PROLONGED QT - EKG (09/16): NSR, LVH WITH QRS WIDENING, T WAVE ABNORMALITY, CONSIDER INFEROLATERAL ISCHEMIA vs lvh strain pattern, PROLONGED QT - ECHO (09/17): No Regional wall motion abnormalities. EF 60-65%, Moderate to severe LA Dilation, Mild MR, Mild TR, Severe pulmonary HTN - Tropnonin 0.03 --> 0.03 --> 0.02 - Cardiology (Dr. Sparks) consulted, Appreciate rec's, will give ASA when if no contraindications from heme/onc, Will need stress test once stable - S/P total 2 units PRBC (09/14 and 09/16) 3. Divirticulitis - CT A/P: Diverticulosis coli with suggestion of mild colitis/ diverticulitis at the junction of the distal descending and proximal sigmoid colon - Immunocompromised hx (HIV, CLL) however currently Asymptomatic, Benign Abdominal physical exam - ID (Dr. Bustillos) consulted, appreciate rec's, f/u cultures - Completed 7 day course of Flagyl 500mg Q8H-IV - Completed 7 day course of Ceftriaxone 2 gm IV DAILY - Continue to monitor 3. HIV - Continue home HAART as per ID - Consider renally dosing - Neutropenic percautions 4. CLL - Per [facility] records, patient is stable with WBC at 60. No interventions indicated unless symptomatic or WBC > 100 - Hepatosplenomegaly noted on CT - Thrombocytopenia of 85 - Hematology/oncology (Dr. Kimble) consulted, appreciate rec's, Will monitor hemogram and check immunoglobulins - Neutropenic percautions 5. Hx of Cirrhosis - CT A/P: Hepatosplenomegaly with slightly lobulated hepatic contour suggestive of cirrhosis and questionable varicosis veins - GI Consulted, will follow rec's, Dark stools FOBT positive x1. No further dark stools, Patient to follow up with [facility] next week for management - Restarted on Lactulose 20 gm PO Q12H PRN 6. HTN - Hold Lasix and Arb as per Renal - Continue home dose Carvedilol 3.125 mg PO BID - Continue home dose Nifedipine 60 mg PO DAILY 7. BPH - Lara placed in ED, Currently draining clear yellow urine - Continue Flomax 0.4 BID 8. NIDDM - Random Glucose 143 - Hold home dose glipizide - ISS & BGM ACHS 9. FEN - PO Fluids - Lytes wnl, replete as needed - Neutropenic diet 10. PPx - Heparin SQ TID Visit type - Emergency Visit Emergency Visit: Yes ED Registration Date: 09/11/17 Care time: The patient presented to the Emergency Department on the above date and was hospitalized for further evaluation of their emergent condition. - New Patient This patient is new to me today: No - Critical Care Critical Care patient: No
[2017-09-19 06:31] LABS: HEMOGLOBIN 8.9 GM/dL (11.7-16.9); LYMPH % 98.4 % (8-40); MCH 29.7 pg (25.7-33.7); MCHC 32.9 g/dl (32.0-35.9); MEAN CELL VOLUME 90.3 fl (80-96); MEAN PLT VOLUME 7.9 fl (7.5-11.1); MONO % 0.4 % (3.8-10.2); NEUT % 1.2 % (42.8-82.8); PLATELET COUNT 84 K/MM3 (134-434); RBC 2.99 M/mm3 (4.00-5.60); RDW 16.1 % (11.9-15.9)
[2017-09-19] MEDS: SODIUM BICARBONATE 650 MG TABLET PO SCH ×3 (06:33→21:58)
[2017-09-19] MEDS: DOCUSATE SODIUM 100 MG CAPSULE (FP) PO SCH ×3 (06:33→21:59)
[2017-09-19] MEDS: INSULIN SLIDING SCALE (NOVOLOG) 1 VIAL SQ SCH ×4 (06:36→22:00)
[2017-09-19 07:13] LABS: ALBUMIN 3.1 g/dl (3.4-5.0); ANION GAP 10 (8-16); BLOOD UREA NITROGEN 81 mg/dL (7-18); CALCIUM 7.9 mg/dL (8.5-10.1); CHLORIDE 117 mmol/L (98-107); CO2 19 mmol/L (21-32); GLUCOSE,RANDOM 112 mg/dL (74-106); MAGNESIUM 2.3 mg/dL (1.8-2.4); POTASSIUM 4.2 mmol/L (3.5-5.1); SODIUM 146 mmol/L (136-145)
[2017-09-19 07:16] LABS: ALK PHOS 48 U/L (45-117); BILIRUBIN,TOTAL 0.3 mg/dL (0.2-1.0); CREATININE 4.1 mg/dL (0.7-1.3); PHOSPHOROUS 4.5 mg/dL (2.5-4.9); SGOT/AST 19 U/L (15-37); SGPT/ALT 26 U/L (12-78); TOT PROT 5.3 g/dl (6.4-8.2)
[2017-09-19 07:34] LABS: WHITE BLOOD COUNT 32.1 K/mm3 (4.0-10.0)
[2017-09-19] MEDS ORDERED: PT OWN MED DRAWER 7, Y5N ONE ×3 (08:47→23:26)
[2017-09-19] MEDS: RANITIDINE HCL 150 MG TABLET (FP) PO SCH (09:37)
[2017-09-19] MEDS: NIFEdipine E.R 60 MG TABLET (UD) PO SCH (09:38)
[2017-09-19] MEDS: RALTEGRAVIR POTASSIUM 400 MG TAB PO SCH ×2 (09:38→21:59)
[2017-09-19] MEDS: DARUNAVIR ETHANOLATE 600 MG TAB PO SCH ×2 (09:38→21:58)
[2017-09-19] MEDS: RILPIVIRINE HCL 25 MG TABLET PO SCH (09:39)
[2017-09-19] MEDS: RITONAVIR 100 MG TABLET PO SCH ×2 (09:39→21:59)
[2017-09-19] MEDS: MULTIVITAMINS (DAILY MVI) TABLET (FP) PO SCH (09:40)
[2017-09-19] MEDS: TAMSULOSIN HCL 0.4 MG CAP.ER.24H (FP) PO SCH ×2 (09:40→21:59)
[2017-09-19] MEDS: CARVEDILOL 3.125 MG TABLET (FP) PO SCH ×2 (09:40→21:58)
[2017-09-19] MEDS: POLYETHYLENE GLYCOL 3350 119 GM BTL PO SCH (09:41)
[2017-09-19] MEDS: HYDROCORTISONE 2.5% TOPICAL CREAM 30 GM TUBE PR SCH ×2 (09:42→21:59)
[2017-09-19] MEDS: PSYLLIUM 5.85 GM PACKET PO SCH ×2 (09:44→21:59)
--- NOTE | 2017-09-19 10:01 | PN ---
Progress Note, Physician History of Present Illness: Pt seen and examined at bedside. He is awake and alert. He denies shortness of breath. He did not tolerated the voiding trial. - Current Medication List Current Medications: Active Medications Carvedilol (Coreg -) 3.125 mg PO BID [facility] Last Admin: 09/19/17 09:40 Dose: 3.125 mg Darunavir (Prezista -) 600 mg PO BID [facility] Last Admin: 09/19/17 09:38 Dose: 600 mg Docusate Sodium (Colace -) 100 mg PO TID [facility] Last Admin: 09/19/17 06:33 Dose: 100 mg Hydrocortisone (Anusol 2.5% Hc Cream -) 1 applic [place] BID [facility] Last Admin: 09/19/17 09:42 Dose: 1 applic Insulin Aspart (Novolog Vial Sliding Scale -) 1 vial SQ ACHS [facility]; Protocol Last Admin: 09/19/17 06:36 Dose: Not Given Lactulose (Cephulac (Oral Use)) 20 gm PO Q12H PRN PRN Reason: CONSTIPATION Melatonin (Melatonin) 3 mg PO HS [facility] Last Admin: 09/18/17 22:54 Dose: 3 mg Multivitamins/Minerals/Vitamin C (Tab-A-Vit -) 1 tab PO DAILY [facility] Last Admin: 09/19/17 09:40 Dose: 1 tab Nifedipine (Procardia Xl -) 60 mg PO DAILY [facility] Last Admin: 09/19/17 09:38 Dose: 60 mg Polyethylene Glycol (Miralax (For Daily Use) -) 17 gm PO DAILY [facility] Last Admin: 09/19/17 09:41 Dose: 17 grams Psyllium Hydrophilic Mucilloid (Metamucil (Sugar-Free) -) 5.85 gm PO BID [facility] Last Admin: 09/19/17 09:44 Dose: Not Given Raltegravir (Isentress -) 400 mg PO BID [facility] Last Admin: 09/19/17 09:38 Dose: 400 mg Ranitidine HCl (Zantac -) 150 mg PO DAILY [facility] Last Admin: 09/19/17 09:37 Dose: 150 mg Ritonavir (Norvir -) 100 mg PO BID [facility] Last Admin: 09/19/17 09:39 Dose: 100 mg Sodium Bicarbonate (Sodium Bicarbonate -) 650 mg PO TID [facility] Last Admin: 09/19/17 06:33 Dose: 650 mg Tamsulosin HCl (Flomax -) 0.4 mg PO BID [facility] Last Admin: 09/19/17 09:40 Dose: 0.4 mg - Objective Vital Signs: Vital Signs Temperature 98.3 F 09/19/17 05:36 Pulse Rate 74 09/19/17 05:36 Respiratory Rate 20 09/19/17 05:36 Blood Pressure 135/49 09/19/17 05:36 O2 Sat by Pulse Oximetry (%) 95 09/18/17 20:23 Constitutional: Yes: Calm Eyes: Yes: Conjunctiva Clear HENT: Yes: Atraumatic Neck: Yes: Supple Cardiovascular: Yes: S1, S2 Respiratory: Yes: CTA Bilaterally Gastrointestinal: Yes: Normal Bowel Sounds, Soft Genitourinary: Yes: Lara Present Musculoskeletal: Yes: WNL Edema: Yes Edema: LLE: 1+, RLE: 1+ Integumentary: Yes: WNL Neurological: Yes: Oriented Psychiatric: Yes: Oriented Labs: CBC, BMP 09/19/17 06:00 09/19/17 06:00 INR, PTT INR 1.12 (0.83-1.09) 09/11/17 08:05 Problem List - Problems (1) Acute urinary retention Code(s): R33.8 - OTHER RETENTION OF URINE (2) Cirrhosis of liver Code(s): K74.60 - UNSPECIFIED CIRRHOSIS OF LIVER (3) Renal insufficiency Code(s): N28.9 - DISORDER OF KIDNEY AND URETER, UNSPECIFIED (4) Chronic hepatitis C Code(s): B18.2 - CHRONIC VIRAL HEPATITIS C (5) Human immunodeficiency virus (HIV) seropositivity Code(s): Z21 - ASYMPTOMATIC HUMAN IMMUNODEFICIENCY VIRUS INFECTION STATUS Assessment/Plan Current Medications Generic Name Dose Route Start Last Admin Trade Name Freq PRN Reason Stop Dose Admin Carvedilol 3.125 mg 09/16/17 22:00 09/19/17 09:40 Coreg - PO 3.125 mg BID [facility] Administration Darunavir 600 mg 09/16/17 22:00 09/19/17 09:38 Prezista - PO 600 mg BID [facility] Administration Docusate Sodium 100 mg 09/16/17 22:00 09/19/17 06:33 Colace - PO 100 mg TID [facility] Administration Hydrocortisone 1 applic 09/16/17 22:00 09/19/17 09:42 Anusol 2.5% Hc Cream - [place] 1 applic BID [facility] Administration Insulin Aspart 1 vial 09/16/17 22:00 09/19/17 06:36 Novolog Vial Sliding Scale - SQ Not Given ACHS [facility] Protocol Lactulose 20 gm 09/18/17 17:22 Cephulac (Oral Use) PO Q12H PRN CONSTIPATION Melatonin 3 mg 09/16/17 22:00 09/18/17 22:54 Melatonin PO 3 mg HS [facility] Administration Multivitamins/Minerals/Vitamin C 1 tab 09/17/17 10:00 09/19/17 09:40 Tab-A-Vit - PO 1 tab DAILY [facility] Administration Nifedipine 60 mg 09/17/17 10:00 09/19/17 09:38 Procardia Xl - PO 60 mg DAILY [facility] Administration Polyethylene Glycol 17 gm 09/17/17 10:00 09/19/17 09:41 Miralax (For Daily Use) - PO 17 grams DAILY [facility] Administration Psyllium Hydrophilic Mucilloid 5.85 gm 09/16/17 22:00 09/19/17 09:44 Metamucil (Sugar-Free) - PO Not Given BID [facility] Raltegravir 400 mg 09/16/17 22:00 09/19/17 09:38 Isentress - PO 400 mg BID [facility] Administration Ranitidine HCl 150 mg 09/17/17 10:00 09/19/17 09:37 Zantac - PO 150 mg DAILY [facility] Administration Ritonavir 100 mg 09/16/17 22:00 09/19/17 09:39 Norvir - PO 100 mg BID [facility] Administration Sodium Bicarbonate 650 mg 09/16/17 22:00 09/19/17 06:33 Sodium Bicarbonate - PO 650 mg TID [facility] Administration Tamsulosin HCl 0.4 mg 09/16/17 22:00 09/19/17 09:40 Flomax - PO 0.4 mg BID [facility] Administration Impression 1. 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 HIV 4. liver cirrhosis 5. Hep C 6. nephrolothiasis 7. DM 8. BPH 9. HTN 10. CLL Plan - renal function continues to improve - keep arb on hold - lasix on hold for now - volume status appears stable - repeat labs in am - will need close follow up with his rd scientist after discharge - serologic workup negative - diuretics on hold, can give lasix if develops shortness of breath and overload Dr Wells
--- NOTE | 2017-09-19 10:42 | PN ---
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 Pt also reports increased COREA and lethargy since Sun. - Current Medication List Current Medications: Active Medications Carvedilol (Coreg -) 3.125 mg PO BID [facility] Last Admin: 09/19/17 09:40 Dose: 3.125 mg Darunavir (Prezista -) 600 mg PO BID [facility] Last Admin: 09/19/17 09:38 Dose: 600 mg Docusate Sodium (Colace -) 100 mg PO TID [facility] Last Admin: 09/19/17 06:33 Dose: 100 mg Hydrocortisone (Anusol 2.5% Hc Cream -) 1 applic AL BID [facility] Last Admin: 09/19/17 09:42 Dose: 1 applic Insulin Aspart (Novolog Vial Sliding Scale -) 1 vial SQ ACHS [facility]; Protocol Last Admin: 09/19/17 06:36 Dose: Not Given Lactulose (Cephulac (Oral Use)) 20 gm PO Q12H PRN PRN Reason: CONSTIPATION Melatonin (Melatonin) 3 mg PO HS [facility] Last Admin: 09/18/17 22:54 Dose: 3 mg Multivitamins/Minerals/Vitamin C (Tab-A-Vit -) 1 tab PO DAILY [facility] Last Admin: 09/19/17 09:40 Dose: 1 tab Nifedipine (Procardia Xl -) 60 mg PO DAILY [facility] Last Admin: 09/19/17 09:38 Dose: 60 mg Polyethylene Glycol (Miralax (For Daily Use) -) 17 gm PO DAILY [facility] Last Admin: 09/19/17 09:41 Dose: 17 grams Psyllium Hydrophilic Mucilloid (Metamucil (Sugar-Free) -) 5.85 gm PO BID [facility] Last Admin: 09/19/17 09:44 Dose: Not Given Raltegravir (Isentress -) 400 mg PO BID [facility] Last Admin: 09/19/17 09:38 Dose: 400 mg Ranitidine HCl (Zantac -) 150 mg PO DAILY [facility] Last Admin: 09/19/17 09:37 Dose: 150 mg Ritonavir (Norvir -) 100 mg PO BID [facility] Last Admin: 09/19/17 09:39 Dose: 100 mg Sodium Bicarbonate (Sodium Bicarbonate -) 650 mg PO TID [facility] Last Admin: 09/19/17 06:33 Dose: 650 mg Tamsulosin HCl (Flomax -) 0.4 mg PO BID [facility] Last Admin: 09/19/17 09:40 Dose: 0.4 mg - Objective Vital Signs: Vital Signs Temperature 98.4 F 09/19/17 10:00 Pulse Rate 77 09/19/17 10:00 Respiratory Rate 18 09/19/17 10:00 Blood Pressure 143/61 09/19/17 10:00 O2 Sat by Pulse Oximetry (%) 95 09/19/17 09:00 Eyes: Yes: WNL, Conjunctiva Clear, EOM Intact HENT: Yes: WNL, Atraumatic, Normocephalic Neck: Yes: WNL, Supple, Trachea Midline Cardiovascular: Yes: WNL, Regular Rate and Rhythm Respiratory: Yes: WNL, Regular, CTA Bilaterally Gastrointestinal: Yes: Ascites Genitourinary: Yes: WNL Musculoskeletal: Yes: WNL Extremities: Yes: WNL Edema: Yes Integumentary: Yes: WNL Neurological: Yes: WNL, Alert, Oriented ...Motor Strength: WNL Psychiatric: Yes: WNL Labs: CBC, BMP 09/19/17 06:00 09/19/17 06:00 INR, PTT INR 1.12 (0.83-1.09) 09/11/17 08:05 Problem List - Problems (1) Abdominal pain Code(s): R10.9 - UNSPECIFIED ABDOMINAL PAIN (2) Acute kidney failure Code(s): N17.9 - ACUTE KIDNEY FAILURE, UNSPECIFIED (3) Acute urinary retention Code(s): R33.8 - OTHER RETENTION OF URINE (4) CLL (chronic lymphocytic leukemia) Code(s): C91.90 - LYMPHOID LEUKEMIA, UNSPECIFIED NOT HAVING ACHIEVED REMISSION (5) Chronic kidney disease Code(s): N18.9 - CHRONIC KIDNEY DISEASE, UNSPECIFIED (6) Cirrhosis of liver Code(s): K74.60 - UNSPECIFIED CIRRHOSIS OF LIVER (7) Diverticulitis Code(s): K57.92 - DVTRCLI OF INTEST, PART UNSP, W/O PERF OR ABSCESS W/O BLEED (8) HIV 2 (human immunodeficiency virus type 2) Code(s): B97.35 - HIV 2 THE CAUSE OF DISEASES CLASSIFIED ELSEWHERE (9) Liver cirrhosis Code(s): K74.60 - UNSPECIFIED CIRRHOSIS OF LIVER (10) Renal insufficiency Code(s): N28.9 - DISORDER OF KIDNEY AND URETER, UNSPECIFIED (11) Status post insertion of Lara catheter Code(s): Z98.890 - OTHER SPECIFIED POSTPROCEDURAL STATES (12) Angina Code(s): I20.9 - ANGINA PECTORIS, UNSPECIFIED (13) Azotemia Code(s): R79.89 - OTHER SPECIFIED ABNORMAL FINDINGS OF BLOOD CHEMISTRY (14) Chronic hepatitis C Code(s): B18.2 - CHRONIC VIRAL HEPATITIS C (15) DM Diabetes mellitus type 2 Code(s): E11.9 - TYPE 2 DIABETES MELLITUS WITHOUT COMPLICATIONS (16) Human immunodeficiency virus (HIV) seropositivity Code(s): Z21 - ASYMPTOMATIC HUMAN IMMUNODEFICIENCY VIRUS INFECTION STATUS (17) Anemia Code(s): D64.9 - ANEMIA, UNSPECIFIED (18) Bronchitis Code(s): J40 - BRONCHITIS, NOT SPECIFIED ACUTE OR CHRONIC (20) Colitis Code(s): K52.9 - NONINFECTIVE GASTROENTERITIS AND COLITIS, UNSPECIFIED (21) Cough Code(s): R05 - COUGH (22) DVT prophylaxis Code(s): QDU6046 - (23) Fever Code(s): R50.9 - FEVER, UNSPECIFIED (24) Fever of unknown origin (FUO) Code(s): R50.9 - FEVER, UNSPECIFIED (25) Influenza A Code(s): J10.1 - FLU DUE TO OTH IDENT INFLUENZA VIRUS W OTH RESP MANIFEST (26) Kidney stone on left side Code(s): N20.0 - CALCULUS OF KIDNEY (27) Lymphadenopathy of right cervical region Code(s): R59.0 - LOCALIZED ENLARGED LYMPH NODES (28) Muscle spasms of neck Code(s): M62.838 - OTHER MUSCLE SPASM (29) Nasal congestion Code(s): R09.81 - NASAL CONGESTION (30) Prerenal azotemia Code(s): N17.9 - ACUTE KIDNEY FAILURE, UNSPECIFIED (31) Prostatism Code(s): N40.0 - BENIGN PROSTATIC HYPERPLASIA WITHOUT LOWER URINRY TRACT SYMP (32) Recurrent nephrolithiasis Code(s): N20.0 - CALCULUS OF KIDNEY (33) Transaminitis Code(s): R74.0 - NONSPEC ELEV OF LEVELS OF TRANSAMNS & LACTIC ACID DEHYDRGNSE (34) Upper respiratory infection Code(s): J06.9 - ACUTE UPPER RESPIRATORY INFECTION, UNSPECIFIED Qualifiers: URI type: unspecified viral URI Qualified Code(s): J06.9 - Acute upper respiratory infection, unspecified Assessment/Plan - Problems (1) Acute on chronic diastolic (congestive) heart failure Assessment/Plan: On carvedilol and nifedipine. F/u Is and Os, daily weight, electrolytes, BUN/Cr. ECHO: normal jLVEF; mild MR and TR; severe pulmonary HTN Code(s): I50.33 - ACUTE ON CHRONIC DIASTOLIC (CONGESTIVE) HEART FAILURE (2) Moderate to severe pulmonary hypertension Assessment/Plan: RVSP 61 mmHg, with normal LVEF. Code(s): I27.20 - PULMONARY HYPERTENSION, UNSPECIFIED (3) Atypical chest pain Code(s): R07.89 - OTHER CHEST PAIN (4) Cirrhosis of liver Code(s): K74.60 - UNSPECIFIED CIRRHOSIS OF LIVER (5) Diverticulitis Code(s): K57.92 - DVTRCLI OF INTEST, PART UNSP, W/O PERF OR ABSCESS W/O BLEED (6) HIV (human immunodeficiency virus infection) Code(s): B20 - HUMAN IMMUNODEFICIENCY VIRUS [HIV] DISEASE (7) Renal insufficiency Code(s): N28.9 - DISORDER OF KIDNEY AND URETER, UNSPECIFIED (8) Diabetes Code(s): E11.9 - TYPE 2 DIABETES MELLITUS WITHOUT COMPLICATIONS (9) Thrombocytopenia Code(s): D69.6 - THROMBOCYTOPENIA, UNSPECIFIED (10) Anemia Code(s): D64.9 - ANEMIA, UNSPECIFIED (11) Leukocytosis Code(s): D72.829 - ELEVATED WHITE BLOOD CELL COUNT, UNSPECIFIED
--- NOTE | 2017-09-19 12:23 | PN ---
Teaching Attending Note Name of Resident: Irma Landa ATTENDING PHYSICIAN STATEMENT I saw and evaluated the patient. I reviewed the resident's note and discussed the case with the resident. I agree with the resident's findings and plan as documented. SUBJECTIVE:asymptomatic. denies Cp, SOB, fever, chills, cough, N/V/C/D ortiz removed yesterday and did not urinate. ortiz re-inserted with 450cc output OBJECTIVE: Last Vital Signs Temp Pulse Resp BP Pulse Ox 98.4 F 77 18 143/61 95 09/19/17 10:00 09/19/17 10:00 09/19/17 10:00 09/19/17 10:00 09/19/17 09:00 Intake & Output 09/16/17 09/17/17 09/18/17 09/19/17 23:59 23:59 23:59 23:59 Intake Total 1030 514 700 350 Output Total 1800 3750 3020 1525 [facility] -[phone] General NAD CV S1 S2 RRR no murmur/rub/gallop Lungs Crackles R base Abdomen soft +distended Extremities 3+ pitting edema B/L LE ASSESSMENT AND PLAN: 66 yo M with PMH CKD, CLL, Cirrhosis with portal HTN, IVDU, HIV, HCV s/p treatment presented with RICHY, hyperkalemia and urinary symptoms. 1. Chest pain- no repeat episodes. cardiac markers neg. no events on cardiac monitoring. will need NMST prior to discharge. Cardio on board 2. Acute on CKD stage IV- baseline Cr 2.2. slowly trending down. off fluids. will need to see some more improvement prior to discharge and will need close follow up with licensed pesticide applicator as outpatient. will cont to hold diuretics and ARBS at this time. on bicarb. nephrology on board 3. Urinary retention- ortiz re-inserted. can start bladder training trials 4. B/L LE edema-due to volume overload. doppler neg for DVT. will hold lasix for nows. TREVER and leg elevation. Echo showing impaired relaxation. 5. Hyperkalemia- resolved 6. Acute diverticulitis- symptoms resolved. completed abx course. can have colonoscopy in 6-8 weeks. 7. Anemia- multifactorial. s/p 2 units PRBC this hospital stay. no indication for further workup at this time. 8. Thrombocytopenia- stable. no signs of bleeding 9. Cirrhosis- compensated. no signs of withdrawal. on lactulose and titrate for 2-3BM/day. needs to f/u [facility] customer solutions specialist as outpatient 10. CLL- with lymphocytic predominance and absolute neutropenia. leukocytosis is stable. no signs of acute infection. no indication for abx. oncology on patient. neutropenic precautions 11. HTN- controlled 12. h/o IVDA 13. HCV treated 14. HIV on HARRT 15. PT eval
--- NOTE | 2017-09-19 17:39 | PN ---
Physical Exam: SUBJECTIVE: Patient seen and examined this morning at bedside. Patient failed voiding trial overnight as per nursing and had his ortiz catheter replaced and voided 450cc. 3 BM's over night. Appetite sustained without nausea, vomiting or indigestion. Did not use nasal canulla overnight. Denies any belly pain, fevers, chills, chest pain, SOB. OBJECTIVE: Vital Signs Period Temp Pulse Resp BP Sys/Ventura Pulse Ox Last 24 Hr 98.1 F-98.6 F 67-77 16-20 119-143/49-63 95-95 GENERAL: The patient is awake, alert, and fully oriented, in no acute distress. LUNGS: Breath sounds equal, Crackles at the Right base HEART: Regular rate and rhythm, S1, S2 without murmur. ABDOMEN: Soft, nontender, remains distended, normoactive bowel sounds : Ortiz catheter draining clear pink urine UPPER EXTREMITIES: Chronic fine tremor of hands LOWER EXTREMITIES: 2+ pulses, 2+ pitting edema b/l, wearing compression stockings Laboratory Results - last 24 hr 09/14/17 09/18/17 09/19/17 10:05 21:58 06:00 WBC 32.1 H* RBC 2.99 L Hgb 8.9 L Hct 27.0 L MCV 90.3 MCH 29.7 MCHC 32.9 RDW 16.1 H Plt Count 84 L MPV 7.9 Absolute Neuts (auto) 0.4 Total Counted 100 Neutrophils % 1.2 L Neutrophils % (Manual) 0.0 L Band Neutrophils % 0.0 Lymphocytes % 98.4 H Lymphocytes % (Manual) 98.0 H* Monocytes % 0.4 L Monocytes % (Manual) 2 L Eosinophils % 0.0 Eosinophils % (Manual) 0.0 Basophils % 0.0 Basophils % (Manual) 0.0 Myelocytes % (Man) 0 Promyelocytes % (Man) 0 Blast Cells % (Manual) 0 Nucleated RBC % 0 Metamyelocytes 0 Sodium Potassium Chloride Carbon Dioxide Anion Gap BUN Creatinine Creat Clearance w eGFR POC Glucometer 141 Random Glucose Calcium Phosphorus Magnesium Total Bilirubin AST ALT Alkaline Phosphatase Total Protein Albumin Blood Type B NEGATIVE Antibody Screen Negative Crossmatch See Detail 09/19/17 09/19/17 09/19/17 06:00 06:33 11:15 WBC RBC Hgb Hct MCV MCH MCHC RDW Plt Count MPV Absolute Neuts (auto) Total Counted Neutrophils % Neutrophils % (Manual) Band Neutrophils % Lymphocytes % Lymphocytes % (Manual) Monocytes % Monocytes % (Manual) Eosinophils % Eosinophils % (Manual) Basophils % Basophils % (Manual) Myelocytes % (Man) Promyelocytes % (Man) Blast Cells % (Manual) Nucleated RBC % Metamyelocytes Sodium 146 H Potassium 4.2 Chloride 117 H Carbon Dioxide 19 L Anion Gap 10 BUN 81 H Creatinine 4.1 H Creat Clearance w eGFR 14.77 POC Glucometer 121 109 Random Glucose 112 H Calcium 7.9 L Phosphorus 4.5 Magnesium 2.3 Total Bilirubin 0.3 AST 19 ALT 26 Alkaline Phosphatase 48 Total Protein 5.3 L Albumin 3.1 L Blood Type Antibody Screen Crossmatch Active Medications Carvedilol (Coreg -) 3.125 mg PO BID [facility] Last Admin: 09/19/17 09:40 Dose: 3.125 mg Darunavir (Prezista -) 600 mg PO BID [facility] Last Admin: 09/19/17 09:38 Dose: 600 mg Docusate Sodium (Colace -) 100 mg PO TID [facility] Last Admin: 09/19/17 13:44 Dose: 100 mg Hydrocortisone (Anusol 2.5% Hc Cream -) 1 applic MI BID [facility] Last Admin: 09/19/17 09:42 Dose: 1 applic Insulin Aspart (Novolog Vial Sliding Scale -) 1 vial SQ ACHS [facility]; Protocol Last Admin: 09/19/17 17:14 Dose: 2 units Lactulose (Cephulac (Oral Use)) 20 gm PO Q12H PRN PRN Reason: CONSTIPATION Melatonin (Melatonin) 3 mg PO HS [facility] Last Admin: 09/18/17 22:54 Dose: 3 mg Multivitamins/Minerals/Vitamin C (Tab-A-Vit -) 1 tab PO DAILY [facility] Last Admin: 09/19/17 09:40 Dose: 1 tab Nifedipine (Procardia Xl -) 60 mg PO DAILY [facility] Last Admin: 09/19/17 09:38 Dose: 60 mg Polyethylene Glycol (Miralax (For Daily Use) -) 17 gm PO DAILY [facility] Last Admin: 09/19/17 09:41 Dose: 17 grams Psyllium Hydrophilic Mucilloid (Metamucil (Sugar-Free) -) 5.85 gm PO BID [facility] Last Admin: 09/19/17 09:44 Dose: Not Given Raltegravir (Isentress -) 400 mg PO BID [facility] Last Admin: 09/19/17 09:38 Dose: 400 mg Ranitidine HCl (Zantac -) 150 mg PO DAILY [facility] Last Admin: 09/19/17 09:37 Dose: 150 mg Ritonavir (Norvir -) 100 mg PO BID [facility] Last Admin: 09/19/17 09:39 Dose: 100 mg Sodium Bicarbonate (Sodium Bicarbonate -) 650 mg PO TID [facility] Last Admin: 09/19/17 13:44 Dose: 650 mg Tamsulosin HCl (Flomax -) 0.4 mg PO BID [facility] Last Admin: 09/19/17 09:40 Dose: 0.4 mg IMAGING: - CXR: Left axillary clips. Chronic changes left base. No acute chest pathology. - Bladder US: A Ortiz catheter is seen in place. At the time of examination the urinary bladder volume is approximately 84 mL. The urinary bladder demonstrates no gross mass lesion or calculus. There is no free intraperitoneal fluid within the lower pelvis. Mild prostate enlargement. - Kidney/Renal US: Prominent renal central sinus echoes, bilaterally suggestive of renal sinus lipomatosis. Small bilateral renal cysts with the largest cyst in the left kidney, anteriorly measuring 1.7 cm demonstrating a thin septation consistent with a complex cyst. Significant splenomegaly. - CT Abdomen Pelvis: Small right kidney relative to the left with small bilateral renal cysts. Nonobstructing left renal stone measuring 7 mm. There is stranding of the left perinephric fat with a small amount of fluid. Mild dilatation of the left renal pelvis. However, there is no gross evidence of hydroureter or obstructing ureteral stone, bilaterally. Hepatosplenomegaly with slightly lobulated hepatic contour suggestive of cirrhosis and questionable varicosis veins for which correlation with contrast-enhanced CT scan would be helpful. 1 cm faint ill-defined subcapsular hyperdensities seen along inferior margin of the spleen, laterally which is nonspecific. It may represent a hemangioma. A small subcapsular hematoma could not be excluded. Multiple mesenteric and retroperitoneal enlarged lymph nodes measuring up to 2.2 cm for which further evaluation is recommended. 2.8 cm right adrenal low-attenuation nodule that may represent an adrenal adenoma. Likely accessory spleen measuring 2.2 cm. Diverticulosis coli without diverticulitis at the junction of the distal descending and proximal sigmoid colon. No extraluminal air or abscess/ drainable collection is identified. There is a typographical error in the last sentence of the impression that should read; Diverticulosis coli with suggestion of mild colitis/ diverticulitis at the junction of the distal descending and proximal sigmoid colon. No extraluminal air or abscess/drainable collection is identified. - Duplex 2 Legs: No DVT is identified involving either leg. - Abdomen US: Diffuse thickening of the gallbladder wall with questionable adenomyomatosis. No gallstones or pericholecystic free fluid are identified. Marked splenomegaly. Questionable trace of free fluid in the right upper quadrant. Otherwise, there is no evidence of ascites in the left upper quadrant , right lower and left lower quadrant. - CXR (09/16): Little change since prior study. Clearing of left base atelectasis. - ECHO: LV Systolic function is normal, RV systolic function is normal, Mild Mitral annular calcification, Mild MR, Mild TR, Mild , Trace pulmonic valvular regurgitation, moderately dilated IVC, No pericardial effusion - EKG (09/11) : NSR - EKG (09/16): NORMAL SINUS RHYTHM, NONSPECIFIC T WAVE ABNORMALITY lvh repolarization abnormalities, PROLONGED QT, ABNORMAL ECG WHEN COMPARED WITH ECG OF 11-SEP-2017 07:38, - EKG (09/16): NORMAL SINUS RHYTHM, LEFT VENTRICULAR HYPERTROPHY WITH QRS WIDENING , T WAVE ABNORMALITY, CONSIDER INFEROLATERAL ISCHEMIA vs lvh strain pattern, PROLONGED QT, ABNORMAL ECG WHEN COMPARED WITH ECG OF 16-SEP-2017 04:47, NO SIGNIFICANT CHANGE WAS FOUND - ECHO (09/17): No Regional wall motion abnormalities. EF 60-65%, Moderate to severe LA Dilation, Mild MR, Mild TR, Severe pulmonary HTN ASSESSMENT/PLAN: 66 y/o M with PMH CLL, HIV, BPH, CKD (baseline Cr 2), NIDDM, Cirrhosis, hx of IVDA who presented to ED with complaint of incomplete urinary voiding and lower abdominal fullness since Thrus associated with decreased sleep, and night sweats. Exam significant for heart murmur, lung crackles, abdominal distension, pedal edema. Labs sig for leukocytosis, uremia, thrombocytopenia, proteinuria. Pt [id number] for RICHY on CKD. 1. RICHY on CKD stage 4 - Baseline Cr of 2.2; 4.1 today - UA: 3+ proteinuria - CT A/P: Nonobstructing left renal stone measuring 7 mm. Mild dilatation of the left renal pelvis. However, there is no gross evidence of hydroureter or obstructing ureteral stone, bilaterally. - Likely multifactorial due to decreased PO intake and increased lasix, metalazone and losartan with component of urinary retention - Ortiz placed in ED, Failed post void trial, Ortiz replaced today (09/19), Currently draining clear pink urine - Monitor urine output, Strict I/Os - Nephrology (Dr. Wells) consulted, appreciate rec's, will hold Lasix and Arb , renal workup pending - Kidney/Renal US and Bladder US Noted above - 2 unit pRBC transfused (09/14, 09/16) - D/c'ed 02/13 Normal Saline @ 83 mls/hr 2. Chest pain - Denies any chest pain, pressure, or tightness - EKG (09/16): NSR, NONSPECIFIC T WAVE ABNORMALITY lvh repolarization abnormalities, PROLONGED QT - EKG (09/16): NSR, LVH WITH QRS WIDENING, T WAVE ABNORMALITY, CONSIDER INFEROLATERAL ISCHEMIA vs lvh strain pattern, PROLONGED QT - ECHO (09/17): No Regional wall motion abnormalities. EF 60-65%, Moderate to severe LA Dilation, Mild MR, Mild TR, Severe pulmonary HTN - Tropnonin 0.03 --> 0.03 --> 0.02 - Cardiology (Dr. Sparks) consulted, Appreciate rec's, will give ASA when if no contraindications from heme/onc, Will need stress test once stable - S/P total 2 units PRBC (09/14 and 09/16) 3. Divirticulitis - Denies any belly pain, nausea, vomiting. Continues to have dark stools without any straining or visible gross blood - CT A/P: Diverticulosis coli with suggestion of mild colitis/ diverticulitis at the junction of the distal descending and proximal sigmoid colon - Immunocompromised hx (HIV, CLL) however currently Asymptomatic, Benign Abdominal physical exam - ID (Dr. Bustillos) consulted, appreciate rec's, f/u cultures - Completed 7 day course of Flagyl 500mg Q8H-IV - Completed 7 day course of Ceftriaxone 2 gm IV DAILY - Continue to monitor 3. HIV - Continue home HAART as per ID - Consider renally dosing - Neutropenic percautions 4. CLL - Per [facility] records, patient is stable with WBC at 60. No interventions indicated unless symptomatic or WBC > 100 - Hepatosplenomegaly noted on CT - Thrombocytopenia of 85 - Hematology/oncology (Dr. Kimble) consulted, appreciate rec's, Will monitor hemogram and check immunoglobulins - Neutropenic percautions 5. Hx of Cirrhosis - CT A/P: Hepatosplenomegaly with slightly lobulated hepatic contour suggestive of cirrhosis and questionable varicosis veins - GI Consulted, will follow rec's, Dark stools FOBT positive x1. No further dark stools, Patient to follow up with [facility] next week for management - Restarted on Lactulose 20 gm PO Q12H PRN - Outpatient appointment at [facility] on 10/02 6. HTN - Hold Lasix and Arb as per Renal - Continue home dose Carvedilol 3.125 mg PO BID - Continue home dose Nifedipine 60 mg PO DAILY 7. BPH - Ortiz placed in ED, Currently draining clear pink urine - Continue Flomax 0.4 BID 8. NIDDM - Random Glucose 143 - Hold home dose glipizide - ISS & BGM ACHS 9. FEN - PO Fluids - Lytes wnl, replete as needed - Neutropenic diet 10. PPx - Heparin SQ TID Visit type - Emergency Visit Emergency Visit: Yes ED Registration Date: 09/11/17 Care time: The patient presented to the Emergency Department on the above date and was hospitalized for further evaluation of their emergent condition. - New Patient This patient is new to me today: No - Critical Care Critical Care patient: No
[2017-09-19] MEDS: MELATONIN 1 MG TABLET PO SCH (23:24)
[2017-09-20 06:23] LABS: ANION GAP 11 (8-16); BLOOD UREA NITROGEN 82 mg/dL (7-18); CALCIUM 7.9 mg/dL (8.5-10.1); CHLORIDE 117 mmol/L (98-107); CO2 19 mmol/L (21-32); CREATININE 3.8 mg/dL (0.7-1.3); GLUCOSE,RANDOM 116 mg/dL (74-106); POTASSIUM 4.6 mmol/L (3.5-5.1); SODIUM 147 mmol/L (136-145)
[2017-09-20] MEDS: INSULIN SLIDING SCALE (NOVOLOG) 1 VIAL SQ SCH ×4 (06:35→21:30)
[2017-09-20] MEDS: SODIUM BICARBONATE 650 MG TABLET PO SCH ×3 (06:35→21:30)
[2017-09-20] MEDS: DOCUSATE SODIUM 100 MG CAPSULE (FP) PO SCH ×3 (06:35→21:30)
--- NOTE | 2017-09-20 07:11 | PN ---
Progress Note (short form) - Note Progress Note: Patient seen and examined Frustrated about failure of TOV ROS- no headaches, diplopia, epistaxis, dysphagia, chest pains, some reflux, no palpitations, some constipation relieved by softeners, , some non productive cough, no chest pain, ortiz catheter Last Vital Signs Temp Pulse Resp BP Pulse Ox 98.1 F 73 20 142/51 95 09/20/17 06:00 09/20/17 06:00 09/20/17 06:00 09/20/17 06:00 09/19/17 21:00 HEENT: LEONCIO, EOM Intact Oropharynx: No thrush, No mucositis Cor: RSR, No murmurs, No gallops Lungs: Clear to P&A Abd: Soft, Normal bowel sounds, liver 8 cm, no definite spleen Ext:No significant edema Skin: No rashes, Integument intact Ortiz catheter CBC, BMP 09/19/17 06:00 09/20/17 05:45 Abnormal Lab Results 09/14/17 09/19/17 09/19/17 10:05 06:00 06:00 WBC 32.1 H* RBC 2.99 L Hgb 8.9 L Hct 27.0 L RDW 16.1 H Plt Count 84 L Neutrophils % 1.2 L Neutrophils % (Manual) 0.0 L Lymphocytes % 98.4 H Lymphocytes % (Manual) 98.0 H* Monocytes % 0.4 L Monocytes % (Manual) 2 L Sodium 146 H Chloride 117 H Carbon Dioxide 19 L BUN 81 H Creatinine 4.1 H Random Glucose 112 H Calcium 7.9 L Total Protein 5.3 L Albumin 3.1 L Crossmatch See Detail 09/20/17 05:45 WBC RBC Hgb Hct RDW Plt Count Neutrophils % Neutrophils % (Manual) Lymphocytes % Lymphocytes % (Manual) Monocytes % Monocytes % (Manual) Sodium 147 H Chloride 117 H Carbon Dioxide 19 L BUN 82 H Creatinine 3.8 H Random Glucose 116 H Calcium 7.9 L Total Protein Albumin Crossmatch Current Medications Generic Name Dose Route Start Last Admin Trade Name Freq PRN Reason Stop Dose Admin Carvedilol 3.125 mg 09/16/17 22:00 09/19/17 21:58 Coreg - PO 3.125 mg BID [facility] Administration Darunavir 600 mg 09/16/17 22:00 09/19/17 21:58 Prezista - PO 600 mg BID [facility] Administration Docusate Sodium 100 mg 09/16/17 22:00 09/20/17 06:35 Colace - PO 100 mg TID [facility] Administration Hydrocortisone 1 applic 09/16/17 22:00 09/19/17 21:59 Anusol 2.5% Hc Cream - [place] 1 applic BID [facility] Administration Insulin Aspart 1 vial 09/16/17 22:00 09/20/17 06:35 Novolog Vial Sliding Scale - SQ Not Given ACHS [facility] Protocol Lactulose 20 gm 09/18/17 17:22 Cephulac (Oral Use) PO Q12H PRN CONSTIPATION Melatonin 3 mg 09/16/17 22:00 09/19/17 23:24 Melatonin PO Not Given HS [facility] Multivitamins/Minerals/Vitamin C 1 tab 09/17/17 10:00 09/19/17 09:40 Tab-A-Vit - PO 1 tab DAILY [facility] Administration Nifedipine 60 mg 09/17/17 10:00 09/19/17 09:38 Procardia Xl - PO 60 mg DAILY [facility] Administration Polyethylene Glycol 17 gm 09/17/17 10:00 09/19/17 09:41 Miralax (For Daily Use) - PO 17 grams DAILY [facility] Administration Psyllium Hydrophilic Mucilloid 5.85 gm 09/16/17 22:00 09/19/17 21:59 Metamucil (Sugar-Free) - PO 5.85 gm BID [facility] Administration Raltegravir 400 mg 09/16/17 22:00 09/19/17 21:59 Isentress - PO 400 mg BID [facility] Administration Ranitidine HCl 150 mg 09/17/17 10:00 09/19/17 09:37 Zantac - PO 150 mg DAILY [facility] Administration Ritonavir 100 mg 09/16/17 22:00 09/19/17 21:59 Norvir - PO 100 mg BID [facility] Administration Sodium Bicarbonate 650 mg 09/16/17 22:00 09/20/17 06:35 Sodium Bicarbonate - PO 650 mg TID [facility] Administration Tamsulosin HCl 0.4 mg 09/16/17 22:00 09/19/17 21:59 Flomax - PO 0.4 mg BID [facility] Administration Impression: CKD/RICHY CLL with anemia, neutropenia, thrombocytopenia s/p transfusion therapy with stable Hct TOV- unsuccessful with ortiz catheter in place HIV - under treatment HCV- treated 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 Remains with pancytopenia likely secondary to CLL with component of chronic disease, kidney disease, retroviral therapy. No intervention required . Follow up with outside oncologist upon discharge.
[2017-09-20] MEDS ORDERED: PT OWN MED DRAWER 7, Y5N ONE ×2 (08:52→20:06)
[2017-09-20] MEDS: MULTIVITAMINS (DAILY MVI) TABLET (FP) PO SCH (09:14)
[2017-09-20] MEDS: RITONAVIR 100 MG TABLET PO SCH ×2 (09:14→21:30)
[2017-09-20] MEDS: RANITIDINE HCL 150 MG TABLET (FP) PO SCH (09:14)
[2017-09-20] MEDS: DARUNAVIR ETHANOLATE 600 MG TAB PO SCH ×2 (09:15→21:29)
[2017-09-20] MEDS: PSYLLIUM 5.85 GM PACKET PO SCH ×2 (09:15→21:30)
[2017-09-20] MEDS: HYDROCORTISONE 2.5% TOPICAL CREAM 30 GM TUBE PR SCH ×2 (09:15→21:30)
[2017-09-20] MEDS: TAMSULOSIN HCL 0.4 MG CAP.ER.24H (FP) PO SCH ×2 (09:15→21:29)
[2017-09-20] MEDS: RILPIVIRINE HCL 25 MG TABLET PO SCH (09:15)
[2017-09-20] MEDS: POLYETHYLENE GLYCOL 3350 119 GM BTL PO SCH (09:15)
[2017-09-20] MEDS: NIFEdipine E.R 60 MG TABLET (UD) PO SCH (09:15)
[2017-09-20] MEDS: CARVEDILOL 3.125 MG TABLET (FP) PO SCH ×2 (09:15→21:30)
[2017-09-20] MEDS: RALTEGRAVIR POTASSIUM 400 MG TAB PO SCH ×2 (09:15→21:29)
--- NOTE | 2017-09-20 11:57 | PN ---
Progress Note, Physician Chief Complaint: Pt A&Ox3; abulates slowly; no chest pain or dyspnea. History of Present Illness: 66 year old black male c/o urinary retention since 10 am 09/10/2017Patient reports that he has a history of kidney stones, BPH, liver cirrhosis, HIV, hypertension.Denies fevers/chills, nausea, vomiting, abdominal pain. Patient reports suprapubic pain and tenderness with increased abdominal distention. 09/11/17 05:54 - Current Medication List Current Medications: Active Medications Carvedilol (Coreg -) 3.125 mg PO BID [facility] Last Admin: 09/20/17 09:15 Dose: 3.125 mg Darunavir (Prezista -) 600 mg PO BID [facility] Last Admin: 09/20/17 09:15 Dose: 600 mg Docusate Sodium (Colace -) 100 mg PO TID [facility] Last Admin: 09/20/17 06:35 Dose: 100 mg Hydrocortisone (Anusol 2.5% Hc Cream -) 1 applic [place] BID [facility] Last Admin: 09/20/17 09:15 Dose: 1 applic Insulin Aspart (Novolog Vial Sliding Scale -) 1 vial SQ ACHS [facility]; Protocol Last Admin: 09/20/17 06:35 Dose: Not Given Lactulose (Cephulac (Oral Use)) 20 gm PO Q12H PRN PRN Reason: CONSTIPATION Melatonin (Melatonin) 3 mg PO HS [facility] Last Admin: 09/19/17 23:24 Dose: Not Given Multivitamins/Minerals/Vitamin C (Tab-A-Vit -) 1 tab PO DAILY [facility] Last Admin: 09/20/17 09:14 Dose: 1 tab Nifedipine (Procardia Xl -) 60 mg PO DAILY [facility] Last Admin: 09/20/17 09:15 Dose: 60 mg Polyethylene Glycol (Miralax (For Daily Use) -) 17 gm PO DAILY [facility] Last Admin: 09/20/17 09:15 Dose: 17 grams Psyllium Hydrophilic Mucilloid (Metamucil (Sugar-Free) -) 5.85 gm PO BID [facility] Last Admin: 09/20/17 09:15 Dose: Not Given Raltegravir (Isentress -) 400 mg PO BID [facility] Last Admin: 09/20/17 09:15 Dose: 400 mg Ranitidine HCl (Zantac -) 150 mg PO DAILY [facility] Last Admin: 09/20/17 09:14 Dose: 150 mg Ritonavir (Norvir -) 100 mg PO BID [facility] Last Admin: 09/20/17 09:14 Dose: 100 mg Sodium Bicarbonate (Sodium Bicarbonate -) 650 mg PO TID [facility] Last Admin: 09/20/17 06:35 Dose: 650 mg Tamsulosin HCl (Flomax -) 0.4 mg PO BID [facility] Last Admin: 09/20/17 09:15 Dose: 0.4 mg - Objective Vital Signs: Vital Signs Temperature 98.6 F 09/20/17 09:19 Pulse Rate 74 09/20/17 09:19 Respiratory Rate 18 09/20/17 09:19 Blood Pressure 143/62 09/20/17 09:19 O2 Sat by Pulse Oximetry (%) 95 09/20/17 10:00 Labs: CBC, BMP 09/19/17 06:00 09/20/17 05:45 INR, PTT INR 1.12 (0.83-1.09) 09/11/17 08:05 Problem List - Problems (1) Acute on chronic diastolic (congestive) heart failure Assessment/Plan: On carvedilol and nifedipine. F/u Is and Os, daily weight, electrolytes, BUN/Cr. ECHO: normal jLVEF; mild MR and TR; severe pulmonary HTN Code(s): I50.33 - ACUTE ON CHRONIC DIASTOLIC (CONGESTIVE) HEART FAILURE (2) Moderate to severe pulmonary hypertension Assessment/Plan: 09/29 ECHO: RVSP 61 mmHg, with normal LVEF.This may be a recent change (08/29 ECHO notes dilated IVC, though pulmonary HTN not delineated). Code(s): I27.20 - PULMONARY HYPERTENSION, UNSPECIFIED (3) Atypical chest pain Code(s): R07.89 - OTHER CHEST PAIN (4) Cirrhosis of liver Code(s): K74.60 - UNSPECIFIED CIRRHOSIS OF LIVER (5) Diverticulitis Code(s): K57.92 - DVTRCLI OF INTEST, PART UNSP, W/O PERF OR ABSCESS W/O BLEED (6) HIV (human immunodeficiency virus infection) Code(s): B20 - HUMAN IMMUNODEFICIENCY VIRUS [HIV] DISEASE (7) Renal insufficiency Code(s): N28.9 - DISORDER OF KIDNEY AND URETER, UNSPECIFIED (8) Diabetes Code(s): E11.9 - TYPE 2 DIABETES MELLITUS WITHOUT COMPLICATIONS (9) Thrombocytopenia Code(s): D69.6 - THROMBOCYTOPENIA, UNSPECIFIED (10) Anemia Code(s): D64.9 - ANEMIA, UNSPECIFIED (11) Leukocytosis Code(s): D72.829 - ELEVATED WHITE BLOOD CELL COUNT, UNSPECIFIED (12) Shortness of breath on exertion Assessment/Plan: Recent increase in dyspnea on minimal exertion; ptg blames this on "driving everywhere", and seldom walking or doing other exercise. ECHO: normal LVEF; severe pulmonary HTN. HIV+ TNI < 90.02 Pt underwent stress nuclear MIBI 5 years ago; will repeat the test today ( [place]: pt says he cannot walk well on a treadmill; no hx asthma). Addendum: Stress MIBI showed no evidence of myocardial ischemia on nuclear images. 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 F/u lipid profile Code(s): R06.02 - SHORTNESS OF BREATH
--- NOTE | 2017-09-20 12:40 | PN ---
Teaching Attending Note Name of Resident: Irma Landa ATTENDING PHYSICIAN STATEMENT I saw and evaluated the patient. I reviewed the resident's note and discussed the case with the resident. I agree with the resident's findings and plan as documented. SUBJECTIVE:asymptomatic. denies Cp, SOB, fever, chills, cough, N/V/C/D OBJECTIVE: Last Vital Signs Temp Pulse Resp BP Pulse Ox 98.6 F 74 18 143/62 95 09/20/17 09:19 09/20/17 09:19 09/20/17 09:19 09/20/17 09:19 09/20/17 10:00 General NAD Extremities 1+ pitting edema B/L LE ASSESSMENT AND PLAN: 66 yo M with PMH CKD, CLL, Cirrhosis with portal HTN, IVDU, HIV, HCV s/p treatment presented with RICHY, hyperkalemia and urinary symptoms. 1. Chest pain- no repeat episodes. cardiac markers neg. no events on cardiac monitoring. plan for NMST tomorrow. last NMST was 5 years ago an dpt reports it as normal. Cardio on board 2. Acute on CKD stage IV- baseline Cr 2.2. slowly trending down. off fluids. will need close follow up with detention worker as outpatient. will cont to hold diuretics and ARBS at this time. on bicarb. nephrology on board 3. Urinary retention- ortiz re-inserted. can start bladder training trials. urology f/u as outpatient 4. B/L LE edema-due to volume overload. doppler neg for DVT. improving with TREVER. 5. Hyperkalemia- resolved 6. Acute diverticulitis- symptoms resolved. completed abx course. can have colonoscopy in 6-8 weeks. 7. Anemia- multifactorial. s/p 2 units PRBC this hospital stay. no indication for further workup at this time. 8. Thrombocytopenia- stable. no signs of bleeding 9. Cirrhosis- compensated. no signs of withdrawal. on lactulose and titrate for 2-3BM/day. 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 CLL- with lymphocytic predominance and absolute neutropenia. leukocytosis is stable. no signs of acute infection. no indication for abx. oncology on patient. neutropenic precautions 11. HTN- controlled 12. h/o IVDA 13. HCV treated 14. HIV on HARRT 15. PT eval. can possible be d/c tomorrow after NMST if renal function continues to improve
[2017-09-20] MEDS ORDERED: REGADENOSON 0.4 MG/5 ML PRE-FILLED SYRINGE IVPUSH ONE ×2 (12:52→15:15)
--- NOTE | 2017-09-20 13:41 | PN ---
Physical Exam: SUBJECTIVE: Patient seen and examined this morning at bedside. 1700cc's output via ortiz catheter overnight. 2 BM's over night. Appetite sustained without nausea, vomiting or indigestion. Denies any belly pain, fevers, chills, chest pain, SOB OBJECTIVE: Vital Signs Period Temp Pulse Resp BP Sys/Ventura Pulse Ox Last 24 Hr 97.7 F-98.6 F 68-74 16-20 119-147/51-65 95-95 GENERAL: The patient is awake, alert, and fully oriented, in no acute distress. LUNGS: Breath sounds equal, Continues to have crackles at the Right base HEART: Regular rate and rhythm, S1, S2 without murmur ABDOMEN: Soft, nontender, remains distended, normoactive bowel sounds : Ortiz catheter draining clear yellow urine UPPER EXTREMITIES: Chronic fine tremor of hands LOWER EXTREMITIES: 2+ pulses, 2+ pitting edema improved from yesterday, wearing compression stockings Laboratory Results - last 24 hr 09/14/17 09/19/17 09/19/17 10:05 06:00 16:08 Total Counted 100 Neutrophils % (Manual) 0.0 L Band Neutrophils % 0.0 Lymphocytes % (Manual) 98.0 H* Monocytes % (Manual) 2 L Eosinophils % (Manual) 0.0 Basophils % (Manual) 0.0 Myelocytes % (Man) 0 Promyelocytes % (Man) 0 Blast Cells % (Manual) 0 Metamyelocytes 0 Sodium Potassium Chloride Carbon Dioxide Anion Gap BUN Creatinine Creat Clearance w eGFR POC Glucometer 164 Random Glucose Calcium Blood Type B NEGATIVE Antibody Screen Negative Crossmatch See Detail 09/19/17 09/20/17 09/20/17 21:46 05:45 06:32 Total Counted Neutrophils % (Manual) Band Neutrophils % Lymphocytes % (Manual) Monocytes % (Manual) Eosinophils % (Manual) Basophils % (Manual) Myelocytes % (Man) Promyelocytes % (Man) Blast Cells % (Manual) Metamyelocytes Sodium 147 H Potassium 4.6 Chloride 117 H Carbon Dioxide 19 L Anion Gap 11 BUN 82 H Creatinine 3.8 H Creat Clearance w eGFR 16.12 POC Glucometer 108 121 Random Glucose 116 H Calcium 7.9 L Blood Type Antibody Screen Crossmatch Active Medications Carvedilol (Coreg -) 3.125 mg PO BID [facility] Last Admin: 09/20/17 09:15 Dose: 3.125 mg Darunavir (Prezista -) 600 mg PO BID [facility] Last Admin: 09/20/17 09:15 Dose: 600 mg Docusate Sodium (Colace -) 100 mg PO TID [facility] Last Admin: 09/20/17 06:35 Dose: 100 mg Hydrocortisone (Anusol 2.5% Hc Cream -) 1 applic [place] BID [facility] Last Admin: 09/20/17 09:15 Dose: 1 applic Insulin Aspart (Novolog Vial Sliding Scale -) 1 vial SQ ACHS [facility]; Protocol Last Admin: 09/20/17 06:35 Dose: Not Given Lactulose (Cephulac (Oral Use)) 20 gm PO Q12H PRN PRN Reason: CONSTIPATION Melatonin (Melatonin) 3 mg PO HS [facility] Last Admin: 09/19/17 23:24 Dose: Not Given Multivitamins/Minerals/Vitamin C (Tab-A-Vit -) 1 tab PO DAILY [facility] Last Admin: 09/20/17 09:14 Dose: 1 tab Nifedipine (Procardia Xl -) 60 mg PO DAILY [facility] Last Admin: 09/20/17 09:15 Dose: 60 mg Polyethylene Glycol (Miralax (For Daily Use) -) 17 gm PO DAILY [facility] Last Admin: 09/20/17 09:15 Dose: 17 grams Psyllium Hydrophilic Mucilloid (Metamucil (Sugar-Free) -) 5.85 gm PO BID [facility] Last Admin: 09/20/17 09:15 Dose: Not Given Raltegravir (Isentress -) 400 mg PO BID [facility] Last Admin: 09/20/17 09:15 Dose: 400 mg Ranitidine HCl (Zantac -) 150 mg PO DAILY [facility] Last Admin: 09/20/17 09:14 Dose: 150 mg Ritonavir (Norvir -) 100 mg PO BID [facility] Last Admin: 09/20/17 09:14 Dose: 100 mg Sodium Bicarbonate (Sodium Bicarbonate -) 650 mg PO TID [facility] Last Admin: 09/20/17 06:35 Dose: 650 mg Tamsulosin HCl (Flomax -) 0.4 mg PO BID [facility] Last Admin: 09/20/17 09:15 Dose: 0.4 mg IMAGING: - CXR: Left axillary clips. Chronic changes left base. No acute chest pathology. - Bladder US: A Ortiz catheter is seen in place. At the time of examination the urinary bladder volume is approximately 84 mL. The urinary bladder demonstrates no gross mass lesion or calculus. There is no free intraperitoneal fluid within the lower pelvis. Mild prostate enlargement. - Kidney/Renal US: Prominent renal central sinus echoes, bilaterally suggestive of renal sinus lipomatosis. Small bilateral renal cysts with the largest cyst in the left kidney, anteriorly measuring 1.7 cm demonstrating a thin septation consistent with a complex cyst. Significant splenomegaly. - CT Abdomen Pelvis: Small right kidney relative to the left with small bilateral renal cysts. Nonobstructing left renal stone measuring 7 mm. There is stranding of the left perinephric fat with a small amount of fluid. Mild dilatation of the left renal pelvis. However, there is no gross evidence of hydroureter or obstructing ureteral stone, bilaterally. Hepatosplenomegaly with slightly lobulated hepatic contour suggestive of cirrhosis and questionable varicosis veins for which correlation with contrast-enhanced CT scan would be helpful. 1 cm faint ill-defined subcapsular hyperdensities seen along inferior margin of the spleen, laterally which is nonspecific. It may represent a hemangioma. A small subcapsular hematoma could not be excluded. Multiple mesenteric and retroperitoneal enlarged lymph nodes measuring up to 2.2 cm for which further evaluation is recommended. 2.8 cm right adrenal low-attenuation nodule that may represent an adrenal adenoma. Likely accessory spleen measuring 2.2 cm. Diverticulosis coli without diverticulitis at the junction of the distal descending and proximal sigmoid colon. No extraluminal air or abscess/ drainable collection is identified. There is a typographical error in the last sentence of the impression that should read; Diverticulosis coli with suggestion of mild colitis/ diverticulitis at the junction of the distal descending and proximal sigmoid colon. No extraluminal air or abscess/drainable collection is identified. - Duplex 2 Legs: No DVT is identified involving either leg. - Abdomen US: Diffuse thickening of the gallbladder wall with questionable adenomyomatosis. No gallstones or pericholecystic free fluid are identified. Marked splenomegaly. Questionable trace of free fluid in the right upper quadrant. Otherwise, there is no evidence of ascites in the left upper quadrant , right lower and left lower quadrant. - CXR (09/16): Little change since prior study. Clearing of left base atelectasis. - ECHO: LV Systolic function is normal, RV systolic function is normal, Mild Mitral annular calcification, Mild MR, Mild TR, Mild , Trace pulmonic valvular regurgitation, moderately dilated IVC, No pericardial effusion - EKG (09/11) : NSR - EKG (09/16): NORMAL SINUS RHYTHM, NONSPECIFIC T WAVE ABNORMALITY lvh repolarization abnormalities, PROLONGED QT, ABNORMAL ECG WHEN COMPARED WITH ECG OF 11-SEP-2017 07:38, - EKG (09/16): NORMAL SINUS RHYTHM, LEFT VENTRICULAR HYPERTROPHY WITH QRS WIDENING , T WAVE ABNORMALITY, CONSIDER INFEROLATERAL ISCHEMIA vs lvh strain pattern, PROLONGED QT, ABNORMAL ECG WHEN COMPARED WITH ECG OF 16-SEP-2017 04:47, NO SIGNIFICANT CHANGE WAS FOUND - ECHO (09/17): No Regional wall motion abnormalities. EF 60-65%, Moderate to severe LA Dilation, Mild MR, Mild TR, Severe pulmonary HTN - Myocardial Perfusion Nuclear scan: No ischemia, LVEF 56 % ASSESSMENT/PLAN: 66 y/o M with PMH CLL, HIV, BPH, CKD (baseline Cr 2), NIDDM, Cirrhosis, hx of IVDA who presented to ED with complaint of incomplete urinary voiding and lower abdominal fullness since Thrus associated with decreased sleep, and night sweats. Exam significant for heart murmur, lung crackles, abdominal distension, pedal edema. Labs sig for leukocytosis, uremia, thrombocytopenia, proteinuria. Pt [id number] for RICHY on CKD. 1. RICHY on CKD stage 4 - Baseline Cr of 2.2; 3.8 today - UA: 3+ proteinuria - CT A/P: Nonobstructing left renal stone measuring 7 mm. Mild dilatation of the left renal pelvis. However, there is no gross evidence of hydroureter or obstructing ureteral stone, bilaterally. - Likely multifactorial due to decreased PO intake and increased lasix, metalazone and losartan with component of urinary retention - Ortiz placed in ED, Failed post void trial, Ortiz replaced today (09/19), Currently draining clear yelow urine - Monitor urine output, Strict I/Os - Nephrology (Dr. Wells) consulted, appreciate rec's, will hold Lasix and Arb , renal workup pending - Kidney/Renal US and Bladder US Noted above - 2 unit pRBC transfused (09/14, 09/16) - D/c'ed 1/2 Normal Saline @ 83 mls/hr 2. Chest pain - S/P total 2 units PRBC (09/14 and 09/16) - Denies any chest pain, pressure, or tightness - EKG (09/16): NSR, NONSPECIFIC T WAVE ABNORMALITY lvh repolarization abnormalities, PROLONGED QT - EKG (09/16): NSR, LVH WITH QRS WIDENING, T WAVE ABNORMALITY, CONSIDER INFEROLATERAL ISCHEMIA vs lvh strain pattern, PROLONGED QT - ECHO (09/17): No Regional wall motion abnormalities. EF 60-65%, Moderate to severe LA Dilation, Mild MR, Mild TR, Severe pulmonary HTN - Tropnonin 0.03 --> 0.03 --> 0.02 - Cardiology (Dr. Sparks) consulted, Appreciate rec's, will give ASA when if no contraindications from heme/onc, Will need stress test once stable - Myocardial Perfusion Nuclear scan: No ischemia, LVEF 56 % 3. Divirticulitis - Denies any belly pain, nausea, vomiting. Continues to have dark stools without any straining or visible gross blood - CT A/P: Diverticulosis coli with suggestion of mild colitis/ diverticulitis at the junction of the distal descending and proximal sigmoid colon - Immunocompromised hx (HIV, CLL) however currently Asymptomatic, Benign Abdominal physical exam - ID (Dr. Bustillos) consulted, appreciate rec's, f/u cultures - Completed 7 day course of Flagyl 500mg Q8H-IV - Completed 7 day course of Ceftriaxone 2 gm IV DAILY - Continue to monitor 4. HIV - Continue home HAART as per ID - Consider renally dosing - Neutropenic percautions 5. CLL - Per [facility] records, patient is stable with WBC at 60. No interventions indicated unless symptomatic or WBC > 100 - Hepatosplenomegaly noted on CT - Thrombocytopenia of 85 - Hematology/oncology (Dr. Kimble) consulted, appreciate rec's, Will monitor hemogram and check immunoglobulins - Neutropenic percautions 6. Hx of Cirrhosis - CT A/P: Hepatosplenomegaly with slightly lobulated hepatic contour suggestive of cirrhosis and questionable varicosis veins - GI Consulted, will follow rec's, Dark stools FOBT positive x1. No further dark stools, Patient to follow up with [facility] next week for management - Restarted on Lactulose 20 gm PO Q12H PRN - Outpatient appointment at [facility] on 10/02 7. HTN - Hold Lasix and Arb as per Renal - Continue home dose Carvedilol 3.125 mg PO BID - Continue home dose Nifedipine 60 mg PO DAILY 8. BPH - Ortiz placed in ED, Currently draining clear pink urine - Continue Flomax 0.4 BID 9. NIDDM - Random Glucose 143 - Hold home dose glipizide - ISS & BGM ACHS 10. FEN - PO Fluids - Lytes wnl, replete as needed - Neutropenic diet 11. PPx - Heparin SQ TID Visit type - Emergency Visit Emergency Visit: Yes ED Registration Date: 09/11/17 Care time: The patient presented to the Emergency Department on the above date and was hospitalized for further evaluation of their emergent condition. - New Patient This patient is new to me today: No - Critical Care Critical Care patient: No
--- NOTE | 2017-09-20 14:50 | PN ---
Progress Note, Physician History of Present Illness: Pt seen and examined at bedside. He is awake and alert. He denies shortness of breath. - Current Medication List Current Medications: Active Medications Carvedilol (Coreg -) 3.125 mg PO BID [facility] Last Admin: 09/20/17 09:15 Dose: 3.125 mg Darunavir (Prezista -) 600 mg PO BID [facility] Last Admin: 09/20/17 09:15 Dose: 600 mg Docusate Sodium (Colace -) 100 mg PO TID [facility] Last Admin: 09/20/17 14:04 Dose: 100 mg Hydrocortisone (Anusol 2.5% Hc Cream -) 1 applic [place] BID [facility] Last Admin: 09/20/17 09:15 Dose: 1 applic Insulin Aspart (Novolog Vial Sliding Scale -) 1 vial SQ ACHS [facility]; Protocol Last Admin: 09/20/17 06:35 Dose: Not Given Lactulose (Cephulac (Oral Use)) 20 gm PO Q12H PRN PRN Reason: CONSTIPATION Melatonin (Melatonin) 3 mg PO HS [facility] Last Admin: 09/19/17 23:24 Dose: Not Given Multivitamins/Minerals/Vitamin C (Tab-A-Vit -) 1 tab PO DAILY [facility] Last Admin: 09/20/17 09:14 Dose: 1 tab Nifedipine (Procardia Xl -) 60 mg PO DAILY [facility] Last Admin: 09/20/17 09:15 Dose: 60 mg Polyethylene Glycol (Miralax (For Daily Use) -) 17 gm PO DAILY [facility] Last Admin: 09/20/17 09:15 Dose: 17 grams Psyllium Hydrophilic Mucilloid (Metamucil (Sugar-Free) -) 5.85 gm PO BID [facility] Last Admin: 09/20/17 09:15 Dose: Not Given Raltegravir (Isentress -) 400 mg PO BID [facility] Last Admin: 09/20/17 09:15 Dose: 400 mg Ranitidine HCl (Zantac -) 150 mg PO DAILY [facility] Last Admin: 09/20/17 09:14 Dose: 150 mg Ritonavir (Norvir -) 100 mg PO BID [facility] Last Admin: 09/20/17 09:14 Dose: 100 mg Sodium Bicarbonate (Sodium Bicarbonate -) 650 mg PO TID [facility] Last Admin: 09/20/17 14:04 Dose: 650 mg Tamsulosin HCl (Flomax -) 0.4 mg PO BID [facility] Last Admin: 09/20/17 09:15 Dose: 0.4 mg - Objective Vital Signs: Vital Signs Temperature 98.6 F 09/20/17 09:19 Pulse Rate 74 09/20/17 09:19 Respiratory Rate 18 09/20/17 09:19 Blood Pressure 143/62 09/20/17 09:19 O2 Sat by Pulse Oximetry (%) 95 09/20/17 10:00 Constitutional: Yes: Calm Eyes: Yes: Conjunctiva Clear HENT: Yes: Atraumatic Neck: Yes: Supple Cardiovascular: Yes: S1, S2 Respiratory: Yes: On Nasal O2 Gastrointestinal: Yes: Soft Genitourinary: Yes: WNL Musculoskeletal: Yes: WNL Edema: Yes Edema: LLE: Trace, RLE: Trace Neurological: Yes: Oriented Psychiatric: Yes: Oriented Labs: CBC, BMP 09/19/17 06:00 09/20/17 05:45 INR, PTT INR 1.12 (0.83-1.09) 09/11/17 08:05 Problem List - Problems (1) Acute urinary retention Code(s): R33.8 - OTHER RETENTION OF URINE (2) Cirrhosis of liver Code(s): K74.60 - UNSPECIFIED CIRRHOSIS OF LIVER (3) Renal insufficiency Code(s): N28.9 - DISORDER OF KIDNEY AND URETER, UNSPECIFIED (4) Chronic hepatitis C Code(s): B18.2 - CHRONIC VIRAL HEPATITIS C (5) Human immunodeficiency virus (HIV) seropositivity Code(s): Z21 - ASYMPTOMATIC HUMAN IMMUNODEFICIENCY VIRUS INFECTION STATUS Assessment/Plan Current Medications Generic Name Dose Route Start Last Admin Trade Name Willq PRN Reason Stop Dose Admin Carvedilol 3.125 mg 09/16/17 22:00 09/20/17 09:15 Coreg - PO 3.125 mg BID [facility] Administration Darunavir 600 mg 09/16/17 22:00 09/20/17 09:15 Prezista - PO 600 mg BID [facility] Administration Docusate Sodium 100 mg 09/16/17 22:00 09/20/17 14:04 Colace - PO 100 mg TID [facility] Administration Hydrocortisone 1 applic 09/16/17 22:00 09/20/17 09:15 Anusol 2.5% Hc Cream - MI 1 applic BID [facility] Administration Insulin Aspart 1 vial 09/16/17 22:00 09/20/17 06:35 Novolog Vial Sliding Scale - SQ Not Given ACHS [facility] Protocol Lactulose 20 gm 09/18/17 17:22 Cephulac (Oral Use) PO Q12H PRN CONSTIPATION Melatonin 3 mg 09/16/17 22:00 09/19/17 23:24 Melatonin PO Not Given HS [facility] Multivitamins/Minerals/Vitamin C 1 tab 09/17/17 10:00 09/20/17 09:14 Tab-A-Vit - PO 1 tab DAILY [facility] Administration Nifedipine 60 mg 09/17/17 10:00 09/20/17 09:15 Procardia Xl - PO 60 mg DAILY [facility] Administration Polyethylene Glycol 17 gm 09/17/17 10:00 09/20/17 09:15 Miralax (For Daily Use) - PO 17 grams DAILY [facility] Administration Psyllium Hydrophilic Mucilloid 5.85 gm 09/16/17 22:00 09/20/17 09:15 Metamucil (Sugar-Free) - PO Not Given BID [facility] Raltegravir 400 mg 09/16/17 22:00 09/20/17 09:15 Isentress - PO 400 mg BID [facility] Administration Ranitidine HCl 150 mg 09/17/17 10:00 09/20/17 09:14 Zantac - PO 150 mg DAILY [facility] Administration Ritonavir 100 mg 09/16/17 22:00 09/20/17 09:14 Norvir - PO 100 mg BID [facility] Administration Sodium Bicarbonate 650 mg 09/16/17 22:00 09/20/17 14:04 Sodium Bicarbonate - PO 650 mg TID [facility] Administration Tamsulosin HCl 0.4 mg 09/16/17 22:00 09/20/17 09:15 Flomax - PO 0.4 mg BID [facility] Administration Impression 1. RICHY 2. 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 HIV 4. liver cirrhosis 5. Hep C 6. nephrolothiasis 7. DM 8. BPH 9. HTN 10. 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
[2017-09-20 15:26] LABS: CHOLESTEROL 86 mg/dL (50-200); HDL CHOLESTEROL 26 mg/dL (40-60); TRIGLYCERIDES 135 mg/dL (35-160)
[2017-09-20] MEDS: MELATONIN 1 MG TABLET PO SCH (21:30)
[2017-09-21] MEDS: INSULIN SLIDING SCALE (NOVOLOG) 1 VIAL SQ SCH ×2 (06:07→11:45)
[2017-09-21] MEDS: SODIUM BICARBONATE 650 MG TABLET PO SCH ×2 (06:07→15:02)
[2017-09-21] MEDS: DOCUSATE SODIUM 100 MG CAPSULE (FP) PO SCH ×2 (06:07→15:02)
[2017-09-21 06:58] LABS: ANION GAP 9 (8-16); BLOOD UREA NITROGEN 75 mg/dL (7-18); CHLORIDE 118 mmol/L (98-107); CO2 20 mmol/L (21-32); CREATININE 3.6 mg/dL (0.7-1.3); GLUCOSE,RANDOM 103 mg/dL (74-106); POTASSIUM 4.6 mmol/L (3.5-5.1); SODIUM 147 mmol/L (136-145)
[2017-09-21 07:00] LABS: CALCIUM 8.1 mg/dL (8.5-10.1)
--- NOTE | 2017-09-21 07:45 | PN ---
Teaching Attending Note Name of Resident: Irma Landa ATTENDING PHYSICIAN STATEMENT I saw and evaluated the patient. I reviewed the resident's note and discussed the case with the resident. I agree with the resident's findings and plan as documented. SUBJECTIVE: Patient is comfortable with no acute distress. Wants to go home. OBJECTIVE: Vital Signs Temperature 98.1 F 09/21/17 05:40 Pulse Rate 72 09/21/17 05:40 Respiratory Rate 20 09/21/17 05:40 Blood Pressure 137/61 09/21/17 05:40 O2 Sat by Pulse Oximetry (%) 95 09/20/17 21:00 CBCD WBC 32.1 K/mm3 (4.0-10.0) H* 09/19/17 06:00 RBC 2.99 M/mm3 (4.00-5.60) L 09/19/17 06:00 Hgb 8.9 GM/dL (11.7-16.9) L 09/19/17 06:00 Hct 27.0 % (35.4-49) L 09/19/17 06:00 MCV 90.3 fl (80-96) 09/19/17 06:00 MCHC 32.9 g/dl (32.0-35.9) 09/19/17 06:00 RDW 16.1 % (11.9-15.9) H 09/19/17 06:00 Plt Count 84 K/MM3 (134-434) L 09/19/17 06:00 MPV 7.9 fl (7.5-11.1) 09/19/17 06:00 CMP Sodium 147 mmol/L (136-145) H 09/21/17 05:45 Potassium 4.6 mmol/L (3.5-5.1) 09/21/17 05:45 Chloride 118 mmol/L (98-107) H 09/21/17 05:45 Carbon Dioxide 20 mmol/L (21-32) L 09/21/17 05:45 Anion Gap 9 (8-16) 09/21/17 05:45 BUN 75 mg/dL (7-18) H 09/21/17 05:45 Creatinine 3.6 mg/dL (0.7-1.3) H 09/21/17 05:45 Creat Clearance w eGFR 17.16 (>60) 09/21/17 05:45 Random Glucose 103 mg/dL (74-106) 09/21/17 05:45 Calcium 8.1 mg/dL (8.5-10.1) L 09/21/17 05:45 Total Bilirubin 0.3 mg/dL (0.2-1.0) 09/19/17 06:00 AST 19 U/L (15-37) 09/19/17 06:00 ALT 26 U/L (12-78) 09/19/17 06:00 Alkaline Phosphatase 48 U/L (45-117) 09/19/17 06:00 Total Protein 5.3 g/dl (6.4-8.2) L 09/19/17 06:00 Albumin 3.1 g/dl (3.4-5.0) L 09/19/17 06:00 CARDIAC ENZYMES Creatine Kinase 255 IU/L (39-308) 09/16/17 16:40 Troponin I 0.02 ng/ml (0.00-0.05) D 09/16/17 16:40 Current Medications Generic Name Dose Route Start Last Admin Trade Name Freq PRN Reason Stop Dose Admin Carvedilol 3.125 mg 09/16/17 22:00 09/20/17 21:30 Coreg - PO 3.125 mg BID [facility] Administration Darunavir 600 mg 09/16/17 22:00 09/20/17 21:29 Prezista - PO 600 mg BID [facility] Administration Docusate Sodium 100 mg 09/16/17 22:00 09/21/17 06:07 Colace - PO 100 mg TID [facility] Administration Hydrocortisone 1 applic 09/16/17 22:00 09/20/17 21:30 Anusol 2.5% Hc Cream - [place] 1 applic BID [facility] Administration Insulin Aspart 1 vial 09/16/17 22:00 09/21/17 06:07 Novolog Vial Sliding Scale - SQ Not Given ACHS [facility] Protocol Lactulose 20 gm 09/18/17 17:22 Cephulac (Oral Use) PO Q12H PRN CONSTIPATION Melatonin 3 mg 09/16/17 22:00 09/20/17 21:30 Melatonin PO Not Given HS [facility] Multivitamins/Minerals/Vitamin C 1 tab 09/17/17 10:00 09/20/17 09:14 Tab-A-Vit - PO 1 tab DAILY [facility] Administration Nifedipine 60 mg 09/17/17 10:00 09/20/17 09:15 Procardia Xl - PO 60 mg DAILY [facility] Administration Polyethylene Glycol 17 gm 09/17/17 10:00 09/20/17 09:15 Miralax (For Daily Use) - PO 17 grams DAILY [facility] Administration Psyllium Hydrophilic Mucilloid 5.85 gm 09/16/17 22:00 09/20/17 21:30 Metamucil (Sugar-Free) - PO Not Given BID [facility] Raltegravir 400 mg 09/16/17 22:00 09/20/17 21:29 Isentress - PO 400 mg BID [facility] Administration Ranitidine HCl 150 mg 09/17/17 10:00 09/20/17 09:14 Zantac - PO 150 mg DAILY [facility] Administration Ritonavir 100 mg 09/16/17 22:00 09/20/17 21:30 Norvir - PO 100 mg BID [facility] Administration Sodium Bicarbonate 650 mg 09/16/17 22:00 09/21/17 06:07 Sodium Bicarbonate - PO 650 mg TID [facility] Administration Tamsulosin HCl 0.4 mg 09/16/17 22:00 09/20/17 21:29 Flomax - PO 0.4 mg BID [facility] Administration Home Medications Medication Instructions Recorded Ritonavir [Norvir] 100 mg PO BID #0 tablet 01/07/13 Allopurinol [Zyloprim -] 100 mg PO DAILY 09/01/15 Carvedilol [Coreg -] 6.25 mg PO DAILY 09/01/15 Furosemide [Lasix -] 80 mg PO DAILY 09/01/15 Glipizide 5 mg PO BID 09/01/15 Lidocaine 5% Patch [Lidoderm Patch 1 patch TP DAILY 09/01/15 -] Multivitamins [Tab-A-Vit -] 1 tab PO DAILY 09/01/15 Nifedipine [Nifedical Xl] 60 mg PO DAILY 09/01/15 Raltegravir [Isentress -] 400 mg PO BID 09/01/15 Ranitidine HCl [Zantac] 150 mg PO DAILY 09/01/15 Rilpivirine HCl [Edurant] 25 mg PO DAILY 09/01/15 Darunavir Ethanolate [Prezista -] 600 mg PO BID 07/09/16 Metolazone 2.5 mg PO Q2D 09/11/17 General NAD Extremities 1+ pitting edema B/L LE Laboratory Tests 09/16/17 09/17/17 09/18/17 06:30 05:30 06:00 Creatinine 5.3 H 4.8 H 4.3 H 09/19/17 09/20/17 09/21/17 06:00 05:45 05:45 Creatinine 4.1 H 3.8 H 3.6 H ASSESSMENT AND PLAN: Patient is a 66 yo M with PMH CKD, CLL, Cirrhosis with portal HTN, IVDU, HIV, HCV s/p treatment presented with RICHY, hyperkalemia and urinary symptoms. #Acute Chest pain r/o ACS was ruled out no repeat episodes. cardiac markers neg. no events on cardiac monitoring. Cardio on board # Acute on CKD stage IV- baseline Cr 2.2, presented with elevated creatinine improving now. close follow up with speech clinician as outpatient. cont to hold diuretics and ARBS ,continue bicarb. follow with nephrology as an outpatient # Acute Urinary retention- patient is being discharged home on [facility] f/ u as outpatient # B/L LE edema-due to volume overload. doppler neg for DVT. improved with TREVER. # s/p Hyperkalemia- resolved # s/p diverticulitis- symptoms resolved. completed abx course. can have colonoscopy in 6-8 weeks as an outpatient. # Anemia- multifactorial. s/p 2 units PRBC this hospital stay. no indication for further workup at this time. # Thrombocytopenia, 84K , stable. no signs of bleeding # Cirrhosis- compensated. on lactulose and titrate for 2-3BM/day. needs to f/u [facility] radiology tech as outpatient #Hx of CLL- with lymphocytic predominance and absolute neutropenia. leukocytosis is stable. no signs of acute infection. no indication for abx.Follow with oncologist as an outpatient with [facility] since his oncologist are at [facility], neutropenic precautions # HTN- controlled # h/o IVDA # HCV treated # HIV on HARRT Discharge patient home, follow with [facility].
--- NOTE | 2017-09-21 08:08 | PN ---
Physical Exam: SUBJECTIVE: Patient seen and examined this morning at bedside. 3 BM's over night. No other acute overnight events. Denies any belly pain, fevers, chills, chest pain, SOB, nausea, vomiting or indigestion. OBJECTIVE: Vital Signs Period Temp Pulse Resp BP Sys/Ventura Pulse Ox Last 24 Hr 97.6 F-98.6 F 70-74 16-20 137-143/61-65 95-95 GENERAL: The patient is awake, alert, and fully oriented, in no acute distress. LUNGS: Breath sounds equal, Crackles at the Right base have improved HEART: Regular rate and rhythm, S1, S2 without murmur ABDOMEN: Soft, nontender, remains distended, normoactive bowel sounds : Lara catheter draining clear yellow urine UPPER EXTREMITIES: Chronic fine tremor of hands LOWER EXTREMITIES: 2+ pulses, 1+ pitting edema improved, wearing compression stockings Laboratory Results - last 24 hr 09/20/17 09/20/17 09/20/17 05:45 12:02 16:45 Sodium 147 H Potassium 4.6 Chloride 117 H Carbon Dioxide 19 L Anion Gap 11 BUN 82 H Creatinine 3.8 H Creat Clearance w eGFR 16.12 POC Glucometer 147 129 Random Glucose 116 H Calcium 7.9 L Triglycerides 135 D Cholesterol 86 Total LDL Cholesterol 48 HDL Cholesterol 26 L D 09/20/17 09/21/17 09/21/17 20:24 05:38 05:45 Sodium 147 H Potassium 4.6 Chloride 118 H Carbon Dioxide 20 L Anion Gap 9 BUN 75 H Creatinine 3.6 H Creat Clearance w eGFR 17.16 POC Glucometer 120 117 Random Glucose 103 Calcium 8.1 L Triglycerides Cholesterol Total LDL Cholesterol HDL Cholesterol Active Medications Carvedilol (Coreg -) 3.125 mg PO BID [facility] Last Admin: 09/20/17 21:30 Dose: 3.125 mg Darunavir (Prezista -) 600 mg PO BID [facility] Last Admin: 09/20/17 21:29 Dose: 600 mg Docusate Sodium (Colace -) 100 mg PO TID [facility] Last Admin: 09/21/17 06:07 Dose: 100 mg Hydrocortisone (Anusol 2.5% Hc Cream -) 1 applic [place] BID [facility] Last Admin: 09/20/17 21:30 Dose: 1 applic Insulin Aspart (Novolog Vial Sliding Scale -) 1 vial SQ ACHS [facility]; Protocol Last Admin: 09/21/17 06:07 Dose: Not Given Lactulose (Cephulac (Oral Use)) 20 gm PO Q12H PRN PRN Reason: CONSTIPATION Melatonin (Melatonin) 3 mg PO HS [facility] Last Admin: 09/20/17 21:30 Dose: Not Given Multivitamins/Minerals/Vitamin C (Tab-A-Vit -) 1 tab PO DAILY [facility] Last Admin: 09/20/17 09:14 Dose: 1 tab Nifedipine (Procardia Xl -) 60 mg PO DAILY [facility] Last Admin: 09/20/17 09:15 Dose: 60 mg Polyethylene Glycol (Miralax (For Daily Use) -) 17 gm PO DAILY [facility] Last Admin: 09/20/17 09:15 Dose: 17 grams Psyllium Hydrophilic Mucilloid (Metamucil (Sugar-Free) -) 5.85 gm PO BID [facility] Last Admin: 09/20/17 21:30 Dose: Not Given Raltegravir (Isentress -) 400 mg PO BID [facility] Last Admin: 09/20/17 21:29 Dose: 400 mg Ranitidine HCl (Zantac -) 150 mg PO DAILY [facility] Last Admin: 09/20/17 09:14 Dose: 150 mg Ritonavir (Norvir -) 100 mg PO BID [facility] Last Admin: 09/20/17 21:30 Dose: 100 mg Sodium Bicarbonate (Sodium Bicarbonate -) 650 mg PO TID [facility] Last Admin: 09/21/17 06:07 Dose: 650 mg Tamsulosin HCl (Flomax -) 0.4 mg PO BID [facility] Last Admin: 09/20/17 21:29 Dose: 0.4 mg IMAGING: - CXR: Left axillary clips. Chronic changes left base. No acute chest pathology. - Bladder US: A Lara catheter is seen in place. At the time of examination the urinary bladder volume is approximately 84 mL. The urinary bladder demonstrates no gross mass lesion or calculus. There is no free intraperitoneal fluid within the lower pelvis. Mild prostate enlargement. - Kidney/Renal US: Prominent renal central sinus echoes, bilaterally suggestive of renal sinus lipomatosis. Small bilateral renal cysts with the largest cyst in the left kidney, anteriorly measuring 1.7 cm demonstrating a thin septation consistent with a complex cyst. Significant splenomegaly. - CT Abdomen Pelvis: Small right kidney relative to the left with small bilateral renal cysts. Nonobstructing left renal stone measuring 7 mm. There is stranding of the left perinephric fat with a small amount of fluid. Mild dilatation of the left renal pelvis. However, there is no gross evidence of hydroureter or obstructing ureteral stone, bilaterally. Hepatosplenomegaly with slightly lobulated hepatic contour suggestive of cirrhosis and questionable varicosis veins for which correlation with contrast-enhanced CT scan would be helpful. 1 cm faint ill-defined subcapsular hyperdensities seen along inferior margin of the spleen, laterally which is nonspecific. It may represent a hemangioma. A small subcapsular hematoma could not be excluded. Multiple mesenteric and retroperitoneal enlarged lymph nodes measuring up to 2.2 cm for which further evaluation is recommended. 2.8 cm right adrenal low-attenuation nodule that may represent an adrenal adenoma. Likely accessory spleen measuring 2.2 cm. Diverticulosis coli without diverticulitis at the junction of the distal descending and proximal sigmoid colon. No extraluminal air or abscess/ drainable collection is identified. There is a typographical error in the last sentence of the impression that should read; Diverticulosis coli with suggestion of mild colitis/ diverticulitis at the junction of the distal descending and proximal sigmoid colon. No extraluminal air or abscess/drainable collection is identified. - Duplex 2 Legs: No DVT is identified involving either leg. - Abdomen US: Diffuse thickening of the gallbladder wall with questionable adenomyomatosis. No gallstones or pericholecystic free fluid are identified. Marked splenomegaly. Questionable trace of free fluid in the right upper quadrant. Otherwise, there is no evidence of ascites in the left upper quadrant , right lower and left lower quadrant. - CXR (09/16): Little change since prior study. Clearing of left base atelectasis. - ECHO: LV Systolic function is normal, RV systolic function is normal, Mild Mitral annular calcification, Mild MR, Mild TR, Mild , Trace pulmonic valvular regurgitation, moderately dilated IVC, No pericardial effusion - EKG (09/11) : NSR - EKG (09/16): NORMAL SINUS RHYTHM, NONSPECIFIC T WAVE ABNORMALITY lvh repolarization abnormalities, PROLONGED QT, ABNORMAL ECG WHEN COMPARED WITH ECG OF 11-SEP-2017 07:38, - EKG (09/16): NORMAL SINUS RHYTHM, LEFT VENTRICULAR HYPERTROPHY WITH QRS WIDENING , T WAVE ABNORMALITY, CONSIDER INFEROLATERAL ISCHEMIA vs lvh strain pattern, PROLONGED QT, ABNORMAL ECG WHEN COMPARED WITH ECG OF 16-SEP-2017 04:47, NO SIGNIFICANT CHANGE WAS FOUND - ECHO (09/17): No Regional wall motion abnormalities. EF 60-65%, Moderate to severe LA Dilation, Mild MR, Mild TR, Severe pulmonary HTN - Myocardial Perfusion Nuclear scan: No ischemia, LVEF 56 % ASSESSMENT/PLAN: 66 y/o M with PMH CLL, HIV, BPH, CKD (baseline Cr 2), NIDDM, Cirrhosis, hx of IVDA who presented to ED with complaint of incomplete urinary voiding and lower abdominal fullness since Thrus associated with decreased sleep, and night sweats. Exam significant for heart murmur, lung crackles, abdominal distension, pedal edema. Labs sig for leukocytosis, uremia, thrombocytopenia, proteinuria. Pt [id number] for RICHY on CKD. 1. RICHY on CKD stage 4 - Baseline Cr of 2.2; 3.8 today - UA: 3+ proteinuria - CT A/P: Nonobstructing left renal stone measuring 7 mm. Mild dilatation of the left renal pelvis. However, there is no gross evidence of hydroureter or obstructing ureteral stone, bilaterally. - Likely multifactorial due to decreased PO intake and increased lasix, metalazone and losartan with component of urinary retention - Lara placed in ED, Failed post void trial, Lara replaced today (09/19), Currently draining clear yelow urine - Monitor urine output, Strict I/Os - Nephrology (Dr. Wells) consulted, appreciate rec's, will hold Lasix and Arb , renal workup pending - Kidney/Renal US and Bladder US Noted above - 2 unit pRBC transfused (09/14, 09/16) - D/c'ed 1/ Normal Saline @ 83 mls/hr 2. Chest pain - S/P total 2 units PRBC (09/14 and 09/16) - Denies any chest pain, pressure, or tightness - EKG (09/16): NSR, NONSPECIFIC T WAVE ABNORMALITY lvh repolarization abnormalities, PROLONGED QT - EKG (09/16): NSR, LVH WITH QRS WIDENING, T WAVE ABNORMALITY, CONSIDER INFEROLATERAL ISCHEMIA vs lvh strain pattern, PROLONGED QT - ECHO (09/17): No Regional wall motion abnormalities. EF 60-65%, Moderate to severe LA Dilation, Mild MR, Mild TR, Severe pulmonary HTN - Tropnonin 0.03 --> 0.03 --> 0.02 - Cardiology (Dr. Sparks) consulted, Appreciate rec's, will give ASA when if no contraindications from heme/onc, Will need stress test once stable - Myocardial Perfusion Nuclear scan: No ischemia, LVEF 56 % 3. Divirticulitis - Denies any belly pain, nausea, vomiting. Continues to have dark stools without any straining or visible gross blood - CT A/P: Diverticulosis coli with suggestion of mild colitis/ diverticulitis at the junction of the distal descending and proximal sigmoid colon - Immunocompromised hx (HIV, CLL) however currently Asymptomatic, Benign Abdominal physical exam - ID (Dr. Bustillos) consulted, appreciate rec's, f/u cultures - Completed 7 day course of Flagyl 500mg Q8H-IV - Completed 7 day course of Ceftriaxone 2 gm IV DAILY - Continue to monitor 4. HIV - Continue home HAART as per ID - Consider renally dosing - Neutropenic percautions 5. CLL - Per [facility] records, patient is stable with WBC at 60. No interventions indicated unless symptomatic or WBC > 100 - Hepatosplenomegaly noted on CT - Thrombocytopenia of 85 - Hematology/oncology (Dr. Kimble) consulted, appreciate rec's, Will monitor hemogram and check immunoglobulins - Neutropenic percautions 6. Hx of Cirrhosis - CT A/P: Hepatosplenomegaly with slightly lobulated hepatic contour suggestive of cirrhosis and questionable varicosis veins - GI Consulted, will follow rec's, Dark stools FOBT positive x1. No further dark stools, Patient to follow up with [facility] next week for management - Restarted on Lactulose 20 gm PO Q12H PRN - Outpatient appointment at [facility] on 10/02 7. HTN - Hold Lasix and Arb as per Renal - Continue home dose Carvedilol 3.125 mg PO BID - Continue home dose Nifedipine 60 mg PO DAILY 8. BPH - Lara placed in ED, Currently draining clear pink urine - Continue Flomax 0.4 BID 9. NIDDM - Random Glucose 143 - Hold home dose glipizide - ISS & BGM ACHS 10. FEN - PO Fluids - Lytes wnl, replete as needed - Neutropenic diet 11. PPx - Heparin SQ TID
[2017-09-21] MEDS ORDERED: PT OWN MED DRAWER 7, Y5N ONE (08:51)
[2017-09-21] MEDS: CARVEDILOL 3.125 MG TABLET (FP) PO SCH (09:30)
[2017-09-21] MEDS: TAMSULOSIN HCL 0.4 MG CAP.ER.24H (FP) PO SCH (09:30)
[2017-09-21] MEDS: RANITIDINE HCL 150 MG TABLET (FP) PO SCH (09:30)
[2017-09-21] MEDS: MULTIVITAMINS (DAILY MVI) TABLET (FP) PO SCH (09:30)
[2017-09-21] MEDS: NIFEdipine E.R 60 MG TABLET (UD) PO SCH (09:30)
[2017-09-21] MEDS: RILPIVIRINE HCL 25 MG TABLET PO SCH (09:31)
[2017-09-21] MEDS: RITONAVIR 100 MG TABLET PO SCH (09:31)
[2017-09-21] MEDS: RALTEGRAVIR POTASSIUM 400 MG TAB PO SCH (09:31)
[2017-09-21] MEDS: DARUNAVIR ETHANOLATE 600 MG TAB PO SCH (09:31)
[2017-09-21] MEDS: PSYLLIUM 5.85 GM PACKET PO SCH (09:32)
[2017-09-21] MEDS: HYDROCORTISONE 2.5% TOPICAL CREAM 30 GM TUBE PR SCH (09:32)
[2017-09-21] MEDS: POLYETHYLENE GLYCOL 3350 119 GM BTL PO SCH (11:45)
[2017-09-21 14:00] VITALS: BP 132/58; PULSE 65; TEMP 98.4
--- NOTE | 2017-09-21 15:52 | PN ---
Progress Note, Physician History of Present Illness: Pt seen and examined at bedside. He is awake an alert. He denies shortness of breath. - Current Medication List Current Medications: Active Medications Carvedilol (Coreg -) 3.125 mg PO BID [facility] Last Admin: 09/21/17 09:30 Dose: 3.125 mg Darunavir (Prezista -) 600 mg PO BID [facility] Last Admin: 09/21/17 09:31 Dose: 600 mg Docusate Sodium (Colace -) 100 mg PO TID [facility] Last Admin: 09/21/17 15:02 Dose: 100 mg Hydrocortisone (Anusol 2.5% Hc Cream -) 1 applic OR BID [facility] Last Admin: 09/21/17 09:32 Dose: 1 applic Insulin Aspart (Novolog Vial Sliding Scale -) 1 vial SQ ACHS [facility]; Protocol Last Admin: 09/21/17 11:45 Dose: Not Given Lactulose (Cephulac (Oral Use)) 20 gm PO Q12H PRN PRN Reason: CONSTIPATION Melatonin (Melatonin) 3 mg PO HS [facility] Last Admin: 09/20/17 21:30 Dose: Not Given Multivitamins/Minerals/Vitamin C (Tab-A-Vit -) 1 tab PO DAILY [facility] Last Admin: 09/21/17 09:30 Dose: 1 tab Nifedipine (Procardia Xl -) 60 mg PO DAILY [facility] Last Admin: 09/21/17 09:30 Dose: 60 mg Polyethylene Glycol (Miralax (For Daily Use) -) 17 gm PO DAILY [facility] Last Admin: 09/21/17 11:45 Dose: 17 grams Psyllium Hydrophilic Mucilloid (Metamucil (Sugar-Free) -) 5.85 gm PO BID [facility] Last Admin: 09/21/17 09:32 Dose: Not Given Raltegravir (Isentress -) 400 mg PO BID [facility] Last Admin: 09/21/17 09:31 Dose: 400 mg Ranitidine HCl (Zantac -) 150 mg PO DAILY [facility] Last Admin: 09/21/17 09:30 Dose: 150 mg Ritonavir (Norvir -) 100 mg PO BID [facility] Last Admin: 09/21/17 09:31 Dose: 100 mg Sodium Bicarbonate (Sodium Bicarbonate -) 650 mg PO TID [facility] Last Admin: 09/21/17 15:02 Dose: 650 mg Tamsulosin HCl (Flomax -) 0.4 mg PO BID [facility] Last Admin: 09/21/17 09:30 Dose: 0.4 mg - Objective Vital Signs: Vital Signs Temperature 98.4 F 09/21/17 13:59 Pulse Rate 65 09/21/17 13:59 Respiratory Rate 16 09/21/17 13:59 Blood Pressure 132/58 09/21/17 13:59 O2 Sat by Pulse Oximetry (%) 93 L 09/21/17 09:29 Constitutional: Yes: Calm Eyes: Yes: Conjunctiva Clear HENT: Yes: Atraumatic Neck: Yes: Supple Cardiovascular: Yes: S1, S2 Gastrointestinal: Yes: Soft Genitourinary: Yes: Lara Present Musculoskeletal: Yes: WNL Edema: No Integumentary: Yes: WNL Neurological: Yes: Oriented Psychiatric: Yes: Oriented Labs: CBC, BMP 09/19/17 06:00 09/21/17 05:45 INR, PTT INR 1.12 (0.83-1.09) 09/11/17 08:05 Problem List - Problems (1) Acute urinary retention Code(s): R33.8 - OTHER RETENTION OF URINE (2) Cirrhosis of liver Code(s): K74.60 - UNSPECIFIED CIRRHOSIS OF LIVER (3) Renal insufficiency Code(s): N28.9 - DISORDER OF KIDNEY AND URETER, UNSPECIFIED (4) Chronic hepatitis C Code(s): B18.2 - CHRONIC VIRAL HEPATITIS C (5) Human immunodeficiency virus (HIV) seropositivity Code(s): Z21 - ASYMPTOMATIC HUMAN IMMUNODEFICIENCY VIRUS INFECTION STATUS Assessment/Plan Current Medications Generic Name Dose Route Start Last Admin Trade Name Freq PRN Reason Stop Dose Admin Carvedilol 3.125 mg 09/16/17 22:00 09/21/17 09:30 Coreg - PO 3.125 mg BID [facility] Administration Darunavir 600 mg 09/16/17 22:00 09/21/17 09:31 Prezista - PO 600 mg BID [facility] Administration Docusate Sodium 100 mg 09/16/17 22:00 09/21/17 15:02 Colace - PO 100 mg TID [facility] Administration Hydrocortisone 1 applic 09/16/17 22:00 09/21/17 09:32 Anusol 2.5% Hc Cream - OR 1 applic BID [facility] Administration Insulin Aspart 1 vial 09/16/17 22:00 09/21/17 11:45 Novolog Vial Sliding Scale - SQ Not Given ACHS [facility] Protocol Lactulose 20 gm 09/18/17 17:22 Cephulac (Oral Use) PO Q12H PRN CONSTIPATION Melatonin 3 mg 09/16/17 22:00 09/20/17 21:30 Melatonin PO Not Given HS [facility] Multivitamins/Minerals/Vitamin C 1 tab 09/17/17 10:00 09/21/17 09:30 Tab-A-Vit - PO 1 tab DAILY [facility] Administration Nifedipine 60 mg 09/17/17 10:00 09/21/17 09:30 Procardia Xl - PO 60 mg DAILY [facility] Administration Polyethylene Glycol 17 gm 09/17/17 10:00 09/21/17 11:45 Miralax (For Daily Use) - PO 17 grams DAILY [facility] Administration Psyllium Hydrophilic Mucilloid 5.85 gm 09/16/17 22:00 09/21/17 09:32 Metamucil (Sugar-Free) - PO Not Given BID [facility] Raltegravir 400 mg 09/16/17 22:00 09/21/17 09:31 Isentress - PO 400 mg BID [facility] Administration Ranitidine HCl 150 mg 09/17/17 10:00 09/21/17 09:30 Zantac - PO 150 mg DAILY [facility] Administration Ritonavir 100 mg 09/16/17 22:00 09/21/17 09:31 Norvir - PO 100 mg BID [facility] Administration Sodium Bicarbonate 650 mg 09/16/17 22:00 09/21/17 15:02 Sodium Bicarbonate - PO 650 mg TID [facility] Administration Tamsulosin HCl 0.4 mg 09/16/17 22:00 09/21/17 09:30 Flomax - PO 0.4 mg BID [facility] Administration Selected Entries 09/11/17 09/21/17 05:16 05:40 Weight 180 lb 183 lb 4 oz Impression 1. RICHY 2. 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 HIV 4. liver cirrhosis 5. Hep C 6. nephrolothiasis 7. DM 8. BPH 9. HTN 10. CLL Plan - renal function is slowly improving - repeat labs in am - hold arb for now - pt has gained about 3 pounds since admission, this is despite being off of diuretics and getting IV fluids - urology eval for obstructive uropathy, pt failed 2 voiding trials - will need close follow up with his drug safety physician after discharge - serologic workup negative Dr Wells
--- NOTE | 2017-09-21 16:56 | DS ---
Physical Exam: SUBJECTIVE: Patient seen and examined this morning at bedside. 3 BM's over night. No other acute overnight events. Continues to drain urine via ortiz catheter. Denies any belly pain, fevers, chills, chest pain, SOB, nausea, vomiting or indigestion. OBJECTIVE: Vital Signs Period Temp Pulse Resp BP Sys/Ventura Pulse Ox Last 24 Hr 98.0 F-98.6 F 65-74 16-20 132-156/58-67 93-95 PHYSICAL EXAM GENERAL: The patient is awake, alert, and fully oriented, in no acute distress. LUNGS: Breath sounds equal, Crackles at the Right base have improved HEART: Regular rate and rhythm, S1, S2 without murmur ABDOMEN: Soft, nontender, remains distended, normoactive bowel sounds : Ortiz catheter draining clear yellow urine UPPER EXTREMITIES: Chronic fine tremor of hands LOWER EXTREMITIES: 2+ pulses, 1+ pitting edema improved, wearing compression stockings LABS Laboratory Results - last 24 hr 09/20/17 09/20/17 09/21/17 16:45 20:24 05:38 Sodium Potassium Chloride Carbon Dioxide Anion Gap BUN Creatinine Creat Clearance w eGFR POC Glucometer 129 120 117 Random Glucose Calcium 09/21/17 05:45 Sodium 147 H Potassium 4.6 Chloride 118 H Carbon Dioxide 20 L Anion Gap 9 BUN 75 H Creatinine 3.6 H Creat Clearance w eGFR 17.16 POC Glucometer Random Glucose 103 Calcium 8.1 L Microbiology 09/11/17 07:48 Blood - Peripheral Venous Blood Culture - Final NO GROWTH AFTER 5 DAYS INCUBATION 09/11/17 08:05 Blood - Peripheral Venous Blood Culture - Final NO GROWTH AFTER 5 DAYS INCUBATION 09/11/17 05:45 Urine - Urine - Catheterized Urine Culture - Final NO GROWTH OBTAINED IMAGING: - CXR: Left axillary clips. Chronic changes left base. No acute chest pathology. - Bladder US: A Ortiz catheter is seen in place. At the time of examination the urinary bladder volume is approximately 84 mL. The urinary bladder demonstrates no gross mass lesion or calculus. There is no free intraperitoneal fluid within the lower pelvis. Mild prostate enlargement. - Kidney/Renal US: Prominent renal central sinus echoes, bilaterally suggestive of renal sinus lipomatosis. Small bilateral renal cysts with the largest cyst in the left kidney, anteriorly measuring 1.7 cm demonstrating a thin septation consistent with a complex cyst. Significant splenomegaly. - CT Abdomen Pelvis: Small right kidney relative to the left with small bilateral renal cysts. Nonobstructing left renal stone measuring 7 mm. There is stranding of the left perinephric fat with a small amount of fluid. Mild dilatation of the left renal pelvis. However, there is no gross evidence of hydroureter or obstructing ureteral stone, bilaterally. Hepatosplenomegaly with slightly lobulated hepatic contour suggestive of cirrhosis and questionable varicosis veins for which correlation with contrast-enhanced CT scan would be helpful. 1 cm faint ill-defined subcapsular hyperdensities seen along inferior margin of the spleen, laterally which is nonspecific. It may represent a hemangioma. A small subcapsular hematoma could not be excluded. Multiple mesenteric and retroperitoneal enlarged lymph nodes measuring up to 2.2 cm for which further evaluation is recommended. 2.8 cm right adrenal low-attenuation nodule that may represent an adrenal adenoma. Likely accessory spleen measuring 2.2 cm. Diverticulosis coli without diverticulitis at the junction of the distal descending and proximal sigmoid colon. No extraluminal air or abscess/ drainable collection is identified. There is a typographical error in the last sentence of the impression that should read; Diverticulosis coli with suggestion of mild colitis/ diverticulitis at the junction of the distal descending and proximal sigmoid colon. No extraluminal air or abscess/drainable collection is identified. - Duplex 2 Legs: No DVT is identified involving either leg. - Abdomen US: Diffuse thickening of the gallbladder wall with questionable adenomyomatosis. No gallstones or pericholecystic free fluid are identified. Marked splenomegaly. Questionable trace of free fluid in the right upper quadrant. Otherwise, there is no evidence of ascites in the left upper quadrant , right lower and left lower quadrant. - CXR (09/16): Little change since prior study. Clearing of left base atelectasis. - ECHO: LV Systolic function is normal, RV systolic function is normal, Mild Mitral annular calcification, Mild MR, Mild TR, Mild , Trace pulmonic valvular regurgitation, moderately dilated IVC, No pericardial effusion - EKG (09/11) : NSR - EKG (09/16): NORMAL SINUS RHYTHM, NONSPECIFIC T WAVE ABNORMALITY lvh repolarization abnormalities, PROLONGED QT, ABNORMAL ECG WHEN COMPARED WITH ECG OF 11-SEP-2017 07:38, - EKG (09/16): NORMAL SINUS RHYTHM, LEFT VENTRICULAR HYPERTROPHY WITH QRS WIDENING , T WAVE ABNORMALITY, CONSIDER INFEROLATERAL ISCHEMIA vs lvh strain pattern, PROLONGED QT, ABNORMAL ECG WHEN COMPARED WITH ECG OF 16-SEP-2017 04:47, NO SIGNIFICANT CHANGE WAS FOUND - ECHO (09/17): No Regional wall motion abnormalities. EF 60-65%, Moderate to severe LA Dilation, Mild MR, Mild TR, Severe pulmonary HTN - Myocardial Perfusion Nuclear scan: No ischemia, LVEF 56 % HOSPITAL COURSE: Date of Admission:09/11/17 Date of Discharge: 09/21/17 Prehospital course as per Dr. 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 Pt also reports increased COREA and lethargy since Sun.Pt describes incomplete voiding since associated with feeling of fullness in the lower abdomen. He has never experienced this in the past. He denies pain/burning with urination, flank pain, blood in urine. He states he has been able to urinate, but feels flow is poor, and has feeling of incomplete voiding. Pt describes decreased appetite, decreased sleep, and night sweats since . He states he has been able to eat, but his appetite is diminished and his portion size has been smaller than normal. He describes having to force himself to eat. He denies any nausea or vomiting. He denies difficulty swallowing solids or liquids. He states he simply does not feel very hungry. He also states he has not been sleeping well since but is not clear as to why. He denies feeling anxious or waking repeatedly to urinate. Pt also gives a somewhat vague description of having night sweats since . It is unclear whether this is similar in character to what he experienced 3 years ago preceding his cancer diagnosis, though he had night sweats at that time, as well. Pt describes increased COREA and lethargy since Sun. Pt states he had Vietnamese food Fri evening, and feels that the increased salt (pt normally observes a low salt diet) has caused him an increase in fatiguability. He states he is normally able to walk approximately 1 city block before becoming fatigued. He was not able to estimate his current exercise capacity, as he has not attempted to get up and walk since Fri, but he feels generally more fatigued than his baseline. Pt describes chronic mild leg swelling. He denies sob/cough when lying flat and uses only 1 pillow to sleep. He cannot recall being told he has heart failure. Pt states that because he felt bloated he decided to resume taking metalazone, which his doctor had previously stopped. Pt also had doubled his losartan dose on his own. Pt admits to having made changes to his medications in the past without consulting his doctors. Pt was counselled about not adjusting his medications on his own. Pt denies fever, weight loss, headache, change in vision, nausea, vomiting, diarrhea, chest pain. Pt states he does not recall when his last BM or flatulence were, but does not feel constipated. CLL: Dx ~ 3 years ago. Pt got immunologic agent. Was not a candidate for chemo/rad. ED staff spoke with Dr. Hill ([facility]). Pt's WBCs have been ~60 for the last 6 months. Primary team plans not to intervene unless WBC climb to 100 or pt develops symptoms. On 07/05/2017, BUN/Wide Area Network Systems Administrator were 45/2.6. Pt states HIV viral load is undetectable and CD4 count was about 1100 recently. Follows at [facility]. ER course was notable for Hb 9.2, Hct 28.5, WBC 65, Na 134, K 5.4, BUN 130, Wide Area Network Systems Administrator 7, Glc 155, UA: 3+ prot, CTAP: splenic subcapsular hypodensity , prox sigmoid divirticulitis, cirrhosis, hepatosplenomegally, mesenteric LAD, L kidney stone, renal cysts, R adrenal adenoma, EKG unremarkable, kayexelate, zosyn, NS, ortiz. Hospital course Patient was admitted for RICHY on Stage 4 CKD likely due to urinary retention. Nephrology, Oncology, Cardiology, ID, GI were all consulted. His diuretics and ARB were held and a ortiz was placed and maintained throughout his hospital stay. 2 Units of pRBC's were transfused during his hospital stay (09/14 and 09/16). He was placed on 1/2 NS @ 42 mls and his renal function and urine output continued to improve. Patient experienced some pedal edema for which IVF was discontinued and TREVER stockings were placed. A Duplex US was done as noted above. He completed a 7 day course of antibiotics (Ceftriaxone, Flagyl) for Diverticulitis found on CT. Patient experienced some chest pain for which an EKG was done (Noted above) and a troponin was found to be negative. An ECHO was repeated and did not find any wall motion abnormality. A Stress test was done and did not find any ischemia. Patient experienced some dark stools for which he was placed on an aggressive bowel regimen. His renal function continued to improve off IVF however patient did fail his voiding trial and will be discharged with a ortiz catheter in place. His RICHY improved to baseline. His Hyperkalemia resolved. Patient was discharged home and asked to keep his appointment at [facility] on 10/02. Minutes to complete discharge: 45 Discharge Summary Reason For Visit: DIVERTICULITIS Current Active Problems Abdominal pain (Acute) Acute kidney failure (Acute) Acute on chronic diastolic (congestive) heart failure (Acute) Acute urinary retention (Acute) Atypical chest pain (Acute) CLL (chronic lymphocytic leukemia) (Acute) Chronic kidney disease (Acute) Cirrhosis of liver (Acute) Diabetes (Acute) Diverticulitis (Acute) HIV (human immunodeficiency virus infection) (Acute) Leukocytosis (Acute) Liver cirrhosis (Acute) Moderate to severe pulmonary hypertension (Acute) Renal insufficiency (Acute) Shortness of breath on exertion (Acute) Status post insertion of Ortiz catheter (Acute) Thrombocytopenia (Acute) Condition: Stable - Instructions Diet, Activity, Other Instructions: You were admitted for acute kidney injury due to urinary retention. A ortiz catheter was inserted to drain the urine. You are being discharged with a catheter in place. You were given fluids to help your kidney function. Please follow up with your Exercise Physiologist Certified within one week of discharge. If not possible, please follow up with Dr. Wells, his contact information has been provided in this packet. [facility]. It would be best to follow up with a Urologist at [facility], however if one is not available, please follow up with Dr. Paul. His information has been provided in this packet. A CT scan was done on your abdomen and you completed a 7 day course of antibiotics for diverticulitis. Please speak with your GI doctor to discuss an outptient colonoscopy. During your stay, 2 units of packed red blood cells was transfused. You experienced some chest pain during your stay. Cardiology was consulted, an echocardiogram and a stress test was done and was negative. Please follow up with Dr. Sparks to further manage your heart. Your legs became swollen during your stay and an ultrasound was done that did not show any clots. Please continue to keep your legs elevated to prevent further swelling. Please do not continue your Losartan and Cozaar medications. Please do not continue your lasix or metalazone medications until you visit your nuclear plant operator. Please continue to hydrate yourself. Zantac 150mg daily has been prescribed for indigestion. Please use Metamucil twice a day, Colace daily and Lactulose twice a day to help with your constipation. Tamsulosin 0.4mg twice a day has been prescribed to help with urination. Please follow up with your primary care physician in one week to check your renal function, blood pressure and monitor your blood counts. If you are unable to follow up with your primary doctor, you can setup an appointment at the [facility]. Please keep your appointment at [facility] on October 02. Please follow with your primary care physician regarding your CLL and all other chronic conditions. If you experience any worrisome symptoms including fevers, chills, chest pain, shortness of breath, bloody urine, weakness, fatigue, please return the ED or call 911. Referrals: Westley Razo MD [Staff Physician] - Prosper Sparks MD [Staff Physician] - Gopal Wells MD [Staff Physician] - 1 Week Disposition: HOME - Home Medications Comprehensive Discharge Medication List: Ambulatory Orders Ritonavir [Norvir] 100 mg PO BID #0 tablet 01/07/13 Allopurinol [Zyloprim -] 100 mg PO DAILY 09/01/15 Carvedilol [Coreg -] 6.25 mg PO DAILY 09/01/15 Furosemide [Lasix -] 80 mg PO DAILY 09/01/15 Lidocaine 5% Patch [Lidoderm -] 1 patch TP DAILY 09/01/15 Multivitamins [Multivit ([facility] Formulary)] 1 tab PO DAILY 09/01/15 Nifedipine [Nifedical Xl] 60 mg PO DAILY 09/01/15 Raltegravir [Isentress] 400 mg PO BID 09/01/15 Rilpivirine HCl [Edurant] 25 mg PO DAILY 09/01/15 Darunavir Ethanolate [Prezista -] 600 mg PO BID 07/09/16 Docusate Sodium [Colace -] 100 mg PO TID 14 Days capsule 09/21/17 Lactulose (Oral Use) [Cephulac -] 20 gm PO Q12H PRN 14 Days udc 09/21/17 Polyethylene Glycol 3350 [Miralax 119 gm Btl -] 17 gm PO DAILY bottle 09/21/17 Psyllium [Metamucil (Sugar-Free) -] 5.85 gm PO BID 14 Days packet 09/21/17 Ranitidine [Zantac -] 150 mg PO DAILY 14 Days tablet 09/21/17 Tamsulosin HCl [Flomax -] 0.4 mg PO BID 14 Days cap.er.24h 09/21/17 This patient is new to me today: No Emergency Visit: Yes ED Registration Date: 09/11/17 Care time: The patient presented to the Emergency Department on the above date and was hospitalized for further evaluation of their emergent condition. Critical Care patient: No - Discharge Referral Referred to [facility] Med P.C.: No
== END 2017-09-21 18:23 | disposition home or self-care (01) | DRG 683 ==
LOC: JER 04:58 → JERBED 10:30 → J4W 14:47 → J7W 09-15 14:25 → J4S 09-16 14:33
PROVIDERS: ADMIT Hospitalist; ATTEND Internal Medicine
PROC: 0T9B70Z Drainage of Bladder with Drainage Device, Via Natural or Artificial Opening (ICD-10-PCS; principal; 2017-09-11)
PROC: 30233N1 Transfusion of Nonautologous Red Blood Cells into Peripheral Vein, Percutaneous Approach (ICD-10-PCS; 2017-09-14)
DX: N17.9 Acute kidney failure, unspecified (principal); K57.32 Diverticulitis of large intestine without perforation or abscess without bleeding; I42.9 Cardiomyopathy, unspecified; C91.10 Chronic lymphocytic leukemia of B-cell type not having achieved remission; I13.0 Hypertensive heart and chronic kidney disease with heart failure and stage 1 through stage 4 chronic kidney disease, or unspecified chronic kidney disease; N40.1 Benign prostatic hyperplasia with lower urinary tract symptoms; E11.22 Type 2 diabetes mellitus with diabetic chronic kidney disease; N18.4 Chronic kidney disease, stage 4 (severe); Z21 Asymptomatic human immunodeficiency virus [HIV] infection status; R33.8 Other retention of urine; B18.2 Chronic viral hepatitis C; K74.60 Unspecified cirrhosis of liver; Z87.891 Personal history of nicotine dependence; N28.1 Cyst of kidney, acquired; D69.6 Thrombocytopenia, unspecified; I27.20 Pulmonary hypertension, unspecified; E87.5 Hyperkalemia; D63.1 Anemia in chronic kidney disease; N20.0 Calculus of kidney; R16.2 Hepatomegaly with splenomegaly, not elsewhere classified; T50.1X1A Poisoning by loop [high-ceiling] diuretics, accidental (unintentional), initial encounter; K59.00 Constipation, unspecified; K64.8 Other hemorrhoids; I45.81 Long QT syndrome; R07.89 Other chest pain
CPT/HCPCS: 36415; 36430; 71045-TC-FY; 74176; 76700-TC; 76775-TC; 76856-TC; 78452-TC; 80048; 80053; 80061; 81003; 81015; 82272; 82436; 82550; 82553; 82570; 82784; 82803; 82962; 83516; 83520; 83605; 83615; 83690; 83721; 83735; 84100; 84132; 84133; 84155; 84156; 84165; 84300; 84443; 84484; 84540; 84550; 85025; 85610; 85730; 86038; 86225; 86256; 86850; 86900; 86901; 86922; 87040; 87086; 93005; 93010; 93017; 93306-TC; 93970-TC; 97116-GP; 97161-GP; 99285-25; A9502; J1644; J2785; J7030; P9038; P9058

== ENCOUNTER 2017-11-04 22:42 | Inpatient (IN) | payer OTHER ==
[2017-11-04 23:18] VITALS: BMI 24.7
[2017-11-04] MEDS ORDERED: SODIUM CHLORIDE 0.9% 500 ML INFUS.BAG IV ONE (23:29)
[2017-11-04] MEDS ORDERED: ACETAMINOPHEN 1000 MG/100 ML VIAL (NON FORMULARY) IVPB ONE (23:29)
--- NOTE | 2017-11-04 23:46 | PDOC ---
Attending Attestation - Resident Resident Name: Celestine Geiger - ED Attending Attestation I have performed the following: I have examined & evaluated the patient, The case was reviewed & discussed with the resident, I agree w/resident's findings & plan - HPI HPI: 11/05/17 01:44 Pt comes with fever and urinary complaints. States that he is finding it difficult to urinate. However he has been passing urine, and a bedside sono shows that he has residual volume of 250 CC urine in his bladder. - Physicial Exam PE: 11/05/17 01:45 Agree with resident exam. Pt is febrile and he has minimal bladder tenderness. No abd tenderness, though he seems to have ascites, we cannot appreciate ascitic fluid on the bedside sono. Pt will be admitted to Med/surg - Medical Decision Making 11/05/17 01:43 Pt has fever, sepsis, UTI, CLL (last treatment was in April 2017, ESRD, HIV+ 11/05/17 01:43 Pt was recently admitted at [facility], so he will be treated for hospital aquired illnesses with zosyn and vanco 11/05/17 01:47 11/05/17 01:47 11/05/17 03:13 Patient Name: JOSÉ MANUEL VIDAL THIS IS A PRELIMINARY REPORT FROM [facility] DATE OF SERVICE: 2017-11-05 02:06:53 IMAGES: [id number] EXAM: CT ABDOMEN AND PELVIS WITHOUT CONTRAST TECHNIQUE: One of more of the following dose reduction techniques were used: Automated exposure control adjustment of the mA and/or kV according to the patient size, use of iterative reconstructive technique. Axial images from the lung bases through the symphysis pubis with multi-planar reconstructions from the axial data set. Oral contrast: No. HISTORY: Sepsis. Diverticulitis. COMPARISON: CT of the abdomen and pelvis without contrast 09/11/2017 FINDINGS: Right lower lobe shows some subsegmental atelectasis. Left kidney contains a 0.6 cm calyceal stone inferiorly. Left kidney contains a small 1.6 cm hypodensity inferiorly, likely cyst. Left perinephric stranding is again noted. Right kidney contains an exophytic 2.2 cm hypodensity inferiorly, likely cyst. No hydronephrosis. No ureteral stones. Trace gas non-dependently within the bladder is present. Right adrenal gland contains a 2.8 cm hypodense lesion measuring 1.4 Hounsfield units, consistent with adenoma. Left adrenal inflammatory stranding is again seen. Liver is enlarged with nodular contour. Spleen is enlarged at 17.6 cm in length. Spleen again contains a small peripheral hyperdensity posteriorly measure 1.3 cm , unchanged. Gallbladder and pancreas are unremarkable. Evaluation for parenchymal organ pathology is limited on non contrast imaging. Aorta is normal in caliber with mild atherosclerosis. Extensive abdominal and pelvic lymphadenopathy is present throughout with the largest upper abdominal periaortic lymph node measured 2.2 cm short axis, similar to prior exam. Colon shows some scattered diverticula with resolution of prior diverticulitis. Minimal residual subtle strandy density along the mesentery in the left lower quadrant is present. Appendix is negative. No free intraperitoneal fluid or gas. Spine and hips show mild degenerative change Prostate appears unchanged. IMPRESSION: 1. Prior acute sigmoid diverticulitis appears resolved since prior examination. Minimal residual strandy mesenteric inflammation in the left lower quadrant. 2. Left perinephric inflammation and inflammation adjacent to the left adrenal gland appears similar to prior exam. This could be infectious or inflammatory. Nonobstructive left renal calyceal stone is again seen. 3. Splenomegaly with pathologic abdominal and pelvic lymphadenopathy, similar to prior exam. This is suspicious for lymphoproliferative disease or metastasis. Small hyperdensity posteriorly along the spleen appears similar. 4. Trace gas non-dependently in the bladder could be secondary to instrumentation or infection. 5. Right adrenal nodule could represent an adenoma. 6. Hepatomegaly with hepatic parenchymal disease.
[2017-11-05 00:01] LABS: URINE APPEARANCE SLCLOUDY; URINE BILIRUBIN NEGATIVE (<2.0 mg/dL); URINE COLOR LTYELLOW; URINE GLUCOSE (UA) 1+ (NEGATIVE); URINE KETONE NEGATIVE (NEGATIVE); URINE LEUK ESTERASE TRACE (NEGATIVE); URINE NITRITE NEGATIVE (NEGATIVE); URINE UROBILINOGEN NEGATIVE mg/dL (0.2-1.0)
[2017-11-05 00:05] LABS: URINE PROTEIN 3+ (NEGATIVE)
[2017-11-05 00:06] LABS: URINE BACTERIA RARE /hpf (NONE SEEN); URINE MUCUS RARE
[2017-11-05 00:43] LABS: HEMATOCRIT 26.7 % (35.4-49); HEMOGLOBIN 8.9 GM/dL (11.7-16.9); LYMPH % 96.4 % (8-40); MCH 29.6 pg (25.7-33.7); MCHC 33.2 g/dl (32.0-35.9); MEAN PLT VOLUME 8.3 fl (7.5-11.1); MONO % 0.7 % (3.8-10.2); NEUT % 2.9 % (42.8-82.8); PLATELET COUNT 68 K/MM3 (134-434); RDW 17.2 % (11.9-15.9); WHITE BLOOD COUNT 26.4 K/mm3 (4.0-10.0)
--- NOTE | 2017-11-05 00:57 | PDOC ---
History of Present Illness <Maria Dolores Sandoval - Last Filed: 11/05/17 02:11> - History of Present Illness Initial Comments: The patient is a 67M w/ a history of HIV (on therapy), CLL (not being treated currently), who was recently discharged from here on 09/21/17 after being treated for acute diverticulitis Was then seen at [facility] for an infection that the patient does not remember what it is. He states he was admitted for 9d for IV abx and was recently D/C'ed. He was discharged with a ortiz that was removed on Sunday by his urologist. Since that time patient reports frequent, small volume voids. Denies dysuria/ hematuria. Endorses small volume intermittent incontinence. 11/05/17 00:52 11/05/17 01:16 <Celestine Geiger - Last Filed: 11/05/17 09:06> - General Chief Complaint: SIRS, Suspected/Possible Stated Complaint: FEVER Time Seen by Provider: 11/04/17 23:31 Past History <Maria Dolores Sandoval - Last Filed: 11/05/17 02:11> - Past Medical History Anemia: Yes Asthma: No Cancer: Yes (lymphacystic leukemia) Cardiac Disorders: Yes CVA: No COPD: No CHF: No DVT: No Dementia: No Diabetes: Yes Disorders: No HTN: Yes Hypercholesterolemia: No Kidney Stones: Yes Liver Disease: Yes (cirrhosis) Seizures: No Thyroid Disease: No - Surgical History Cardiac Surgery: No Cholecystectomy: No Gastric Stapling: No - Immunization History Td Vaccination: Yes Immunization Up to Date: Yes - Suicide/Smoking/Psychosocial Hx Smoking Status: Yes Smoking History: Never smoked Years of Tobacco Use: 25 Have you smoked in the past 12 months: No Number of Cigarettes Smoked Daily: 0 If you are a former smoker, when did you quit?: > 25 yrs ago Cigars Per Day: 0 Information on smoking cessation initiated: No 'Breaking Loose' booklet given: 12/26/12 Hx Alcohol Use: No Drug/Substance Use Hx: No Substance Use Type: None Hx Substance Use Treatment: No <Celestine Geiger - Last Filed: 11/05/17 09:06> - Past Medical History Allergies/Adverse Reactions: Allergies Allergy/AdvReac Type Severity Reaction Status Date / Time lactose AdvReac Verified 09/16/17 00:16 Home Medications: Ambulatory Orders Ritonavir [Norvir] 100 mg PO BID #0 tablet 01/07/13 Allopurinol [Zyloprim -] 100 mg PO DAILY 09/01/15 Carvedilol [Coreg -] 6.25 mg PO BID 09/01/15 Furosemide [Lasix -] 80 mg PO DAILY 09/01/15 Nifedipine [Nifedical Xl] 60 mg PO DAILY 09/01/15 Raltegravir [Isentress] 400 mg PO BID 09/01/15 Rilpivirine HCl [Edurant] 25 mg PO DAILY 09/01/15 Darunavir Ethanolate [Prezista -] 600 mg PO BID 07/09/16 Ranitidine [Zantac -] 150 mg PO DAILY 14 Days tablet 09/21/17 Tamsulosin HCl [Flomax -] 0.4 mg PO BID 14 Days cap.er.24h 09/21/17 Finasteride [Proscar -] 5 mg PO DAILY 11/05/17 Losartan Potassium [Cozaar -] 25 mg PO DAILY 11/05/17 Sodium Bicarbonate - 650 mg PO BID 11/05/17 hydrALAZINE HCL [Apresoline -] 25 mg PO BID 11/05/17 Review of Systems - Review of Systems Able to Perform ROS?: Yes Comments:: GENERAL/CONSTITUTIONAL: + fever, chills, myalgia, malaise HEAD, EYES, EARS, NOSE AND THROAT: No change in vision. No ear pain or discharge. No sore throat CARDIOVASCULAR: No chest pain or shortness of breath RESPIRATORY: + dry cough; denies wheezing or hemoptysis GASTROINTESTINAL: +nausea; denies vomiting, diarrhea or constipation GENITOURINARY: +Recent ortiz removal on Sunday w/ frequent, small volume voids MUSCULOSKELETAL: No joint or muscle swelling or pain. No neck or back pain SKIN: No rash NEUROLOGIC: No headache, vertigo, loss of consciousness, or change in strength/ sensation ENDOCRINE: No increased thirst. No abnormal weight change HEMATOLOGIC/LYMPHATIC: No anemia, easy bleeding, or history of blood clots ALLERGIC/IMMUNOLOGIC: No hives or skin allergy 11/05/17 00:54 Is the patient limited Thai proficient: No <Celestine Geiger - Last Filed: 11/05/17 09:06> *Physical Exam - Vital Signs Last Vital Signs Temp Pulse Resp BP Pulse Ox 102.6 F H 101 H 20 166/56 L 98 11/04/17 23:13 11/04/17 23:13 11/04/17 23:13 11/04/17 23:13 11/04/17 23:13 <SandovalMaria Dolores - Last Filed: 11/05/17 02:11> - Vital Signs Last Vital Signs Temp Pulse Resp BP Pulse Ox 102.6 F H 101 H 20 166/56 L 98 11/04/17 23:13 11/04/17 23:13 11/04/17 23:13 11/04/17 23:13 11/04/17 23:13 - Physical Exam Comments: GENERAL: Awake, alert, and fully oriented, in no acute distress HEAD: No signs of trauma, normocephalic, atraumatic EYES: PERRL, EOMI, sclera anicteric, conjunctiva clear ENT: Hearing grossly normal, nares patent, oropharynx clear without exudates. Moist mucosa NECK: Normal ROM, supple, no lymphadenopathy LUNGS: No distress, speaks full sentences, clear to auscultation bilaterally HEART: Regular rate and rhythm, normal S1 and S2, systolic murmur, peripheral pulses normal and equal bilaterally ABDOMEN: Soft, protuberant, mild suprapubic TTP to deep palpation w/o rebound or guarding; normoactive bowel sounds EXTREMITIES : Normal inspection, Normal range of motion, no edema. No clubbing or cyanosis NEUROLOGICAL: Cranial nerves II through XII grossly intact. Initially mild tremulousness in BUE (pt attributes it to being cold/having chills) Normal speech, shortened gait, no focal sensorimotor deficits SKIN: Increased diffuse warmth to palpation, not diaphoretic <Celestine Geiger - Last Filed: 11/05/17 09:06> ED Treatment Course - LABORATORY CBC & Chemistry Diagram: 11/05/17 00:30 11/05/17 00:30 - ADDITIONAL ORDERS Additional order review: Laboratory Results 11/05/17 11/05/17 11/05/17 00:30 00:30 00:30 PT with INR INR PTT (Actin FS) Sodium 137 Potassium 4.7 Chloride 110 H Carbon Dioxide 16 L Anion Gap 11 BUN 83 H Creatinine 3.9 H Creat Clearance w eGFR 15.59 Random Glucose 148 H Lactic Acid 1.2 Calcium 8.0 L Total Bilirubin 0.4 AST 20 ALT 25 Alkaline Phosphatase 79 Troponin I 0.02 Total Protein 6.4 Albumin 3.7 Urine Color Urine Appearance Urine pH Ur Specific Goode Urine Protein Urine Glucose (UA) Urine Ketones Urine Blood Urine Nitrite Urine Bilirubin Urine Urobilinogen Ur Leukocyte Esterase Urine WBC (Auto) Urine RBC (Auto) Urine Bacteria Urine Mucus 11/05/17 11/04/17 00:30 23:42 PT with INR 13.20 H INR 1.17 H PTT (Actin FS) 25.4 Sodium Potassium Chloride Carbon Dioxide Anion Gap BUN Creatinine Creat Clearance w eGFR Random Glucose Lactic Acid Calcium Total Bilirubin AST ALT Alkaline Phosphatase Troponin I Total Protein Albumin Urine Color Ltyellow Urine Appearance Slcloudy Urine pH 5.0 Ur Specific Goode 1.009 Urine Protein 3+ H Urine Glucose (UA) 1+ H Urine Ketones Negative Urine Blood 1+ H Urine Nitrite Negative Urine Bilirubin Negative Urine Urobilinogen Negative Ur Leukocyte Esterase Trace Urine WBC (Auto) 24 Urine RBC (Auto) 2 Urine Bacteria Rare Urine Mucus Rare 11/05/17 00:30 RBC 3.00 L MCV 89.0 MCHC 33.2 RDW 17.2 H MPV 8.3 Neutrophils % 2.9 L Lymphocytes % 96.4 H Monocytes % 0.7 L Eosinophils % 0.0 Basophils % 0.0 - Medications Given in the ED: ED Medications Discontinued Medications Generic Name Dose Route Start Last Admin Trade Name Freq PRN Reason Stop Dose Admin Acetaminophen 1,000 mg 11/04/17 23:29 11/04/17 23:40 Ofirmev Injection - IVPB 11/04/17 23:30 1,000 mg ONCE ONE Administration Ceftriaxone Sodium 1 gm/ 100 mls @ 200 mls/hr 11/05/17 01:12 11/05/17 01:34 Dextrose IVPB 11/05/17 01:41 Not Given ONCE ONE Protocol Piperacillin Sod/Tazobactam 50 mls @ 100 mls/hr 11/05/17 01:14 11/05/17 01:33 Sod 2.25 gm/ Dextrose IVPB 11/05/17 01:43 100 mls/hr ONCE ONE Administration Protocol Sodium Chloride 1,000 ml 11/04/17 23:29 11/04/17 23:30 Normal Saline - IV 11/04/17 23:30 1,000 ml ONCE ONE Administration <Maria Dolores Sandoval - Last Filed: 11/05/17 02:11> - LABORATORY CBC & Chemistry Diagram: 11/05/17 00:30 11/05/17 00:30 - ADDITIONAL ORDERS Additional order review: Laboratory Results 11/04/17 23:42 Urine Color Ltyellow Urine Appearance Slcloudy Urine pH 5.0 Ur Specific Goode 1.009 Urine Protein 3+ H Urine Glucose (UA) 1+ H Urine Ketones Negative Urine Blood 1+ H Urine Nitrite Negative Urine Bilirubin Negative Urine Urobilinogen Negative Ur Leukocyte Esterase Trace Urine WBC (Auto) 24 Urine RBC (Auto) 2 Urine Bacteria Rare Urine Mucus Rare 11/05/17 00:30 RBC 3.00 L MCV 89.0 MCHC 33.2 RDW 17.2 H MPV 8.3 Neutrophils % 2.9 L Lymphocytes % 96.4 H Monocytes % 0.7 L Eosinophils % 0.0 Basophils % 0.0 - RADIOLOGY Radiology Studies Ordered: Category Date Time Status CHEST X-RAY PORTABLE* [RAD] Stat Radiology 11/04/17 23:26 Taken <Celestine Geiger - Last Filed: 11/05/17 09:06> Medical Decision Making - Medical Decision Making Pt is a 67M w/ hx of HIV and CLL s/p recent admission here for diverticulitis and 9 days at [facility] who presents w/ fevers/chills since 1700 Concern for recurrent infection/sepsis, urinary retention, UTI, vs possible prostatitis v endocarditis v other as yet identified source Not likely to be PNA at this time. Patient w/o cellulitis. Denies use of IV substances within last 20y. Sepsis, possibly 2/2 UTI w/ prolonged indwelling catheter (removed 11/02/2017) Will initiate sepsis w/u Will start Vanc and Zosyn, renally dosed 2/2 presumed decreased renal function per patient's stated hx 1L NS 1g Ofirmev for pain and fever -Patient previously advised not to take NSAIDs for pain 2/2 renal fxn Concern for urinary retention likely 2/2 BPH with overflow incontinence -POCUS sig for 240cc post-void residual which was concurrent with post-void straight cath -Will defer ortiz insertion at this time -Patient to ambulate independently to bathroom frequently for voids Patient reports symptomatic improvement s/p Ofirmev and initial resuscitation Plan for admission for IV abx for sepsis, of unknown origin at this time, though most likely 2/2 catheter associated UTI Plan discussed w/ patient who verbalized understanding and is in agreement --All of patient's specialists are at [facility] --Last Onc appointment was reportedly 1wk [facility] --Pt on HIV therapy, last reported CD4 in 200s, will add to labs Dispo: Admit for IV abx and resuscitation 11/05/17 01:18 <Celestine Geiger - Last Filed: 11/05/17 09:06> *DC/Admit/Observation/Transfer <Maria Dolores Sandoval - Last Filed: 11/05/17 02:11> - Discharge Dispostion Decision to Admit order: Yes <Celestine Geiger - Last Filed: 11/05/17 09:06> Diagnosis at time of Disposition: CLL (chronic lymphocytic leukemia), Human immunodeficiency virus (HIV) seropositivity Sepsis Qualifiers: Sepsis type: sepsis due to unspecified organism Qualified Code(s): A41.9 - Sepsis, unspecified organism Chronic kidney disease Qualifiers: Chronic kidney disease stage: unspecified stage Qualified Code(s): N18.9 - Chronic kidney disease, unspecified Acute kidney failure Qualifiers: Acute renal failure type: unspecified Qualified Code(s): N17.9 - Acute kidney failure, unspecified - Discharge Dispostion Condition at time of disposition: Guarded
[2017-11-05 01:00] LABS: INR 1.17 (0.83-1.09); PROTHROMBIN TIME (PATIENT) 13.2 SEC (9.7-13.0)
[2017-11-05 01:02] LABS: ACTIVATED PTT 25.4 SECONDS (25.2-36.5)
[2017-11-05 01:11] LABS: ALBUMIN 3.7 g/dl (3.4-5.0); ALK PHOS 79 U/L (45-117); ANION GAP 11 MMOL/L (8-16); BILIRUBIN,TOTAL 0.4 mg/dL (0.2-1); BLOOD UREA NITROGEN 83 mg/dL (7-18); CHLORIDE 110 mmol/L (98-107); CO2 16 mmol/L (21-32); CREATININE 3.9 mg/dL (0.55-1.3); GLUCOSE,RANDOM 148 mg/dL (74-106); POTASSIUM 4.7 mmol/L (3.5-5.1); SGOT/AST 20 U/L (15-37); SGPT/ALT 25 U/L (13-61); SODIUM 137 mmol/L (136-145); TOT PROT 6.4 g/dl (6.4-8.2)
[2017-11-05] MEDS ORDERED: CEFTRIAXONE 1 GM in DEXTROSE 5%-WATER - 100 ML IVPB ONE (01:12)
[2017-11-05] MEDS ORDERED: PIPERACILLIN/TAZOB 2.25 GM 2.25 GM in DEXTROSE 5%-WATER - 50 ML IVPB ONE ×2 (01:14→09:30)
[2017-11-05] MEDS ORDERED: VANCOMYCIN 1,000 MG in DEXTROSE 5%-WATER - 250 ML IVPB ONE (01:15)
[2017-11-05] MEDS ORDERED: VANCOMYCIN 1 GRAM (PRE-DOCKED) 1,000 MG/250 ML BAG IVPB ONE (01:19)
[2017-11-05] MEDS ORDERED: PIPERACILLIN/TAZOBACTAM 2.25 GM VIAL IVPB ONE ×2 (01:19→17:57)
[2017-11-05] MEDS ORDERED: ACETAMINOPHEN INJECTION 100 ML IVPB ONE (01:19)
[2017-11-05 02:23] LABS: ANISOCYTOSIS 1+; MACROCYTOSIS 0; PLATELET ESTIMATE DECREASED
--- NOTE | 2017-11-05 04:56 | HP ---
CHIEF COMPLAINT: Fever, chills, weakness PCP: @ [facility] HISTORY OF PRESENT ILLNESS: This is a 67 year old male with a significant past medical history of HIV, CLL, BPH, recent hospitalization here for diverticulitis in September and hospitalization due to infection of unknown type September-October at [facility] who presented to the ED with fever, chills, malaise. He also reports urinary frequency, decreased stream and some urinary incontinence since his Ortiz was removed at his urologist on Sunday. He states that he has been home from the hospital for approximately 2.5 weeks and has otherwise been feeling ok. ER course was notable for: (1) t102.6, HR 101 (2) lactic acid 1.2 (3) u/a c/w UTI Recent Travel: pt denies PAST MEDICAL HISTORY: HIV, CLL (last chemo 04/2016), diverticulitis, BPH, HTN, anemia, DM, kidney stones, cirrhosis, Hep C s/p Harvoni treatment PAST SURGICAL HISTORY: lymph node removal L axilla Social History: Smoking: quit age 40 Alcohol: quit age 40 Drugs: quit age 40 Family History: mother alive with dementia father age 55, OD siblings alive and well Allergies lactose Adverse Reaction (Verified 09/16/17 00:16) HOME MEDICATIONS: 3 Medication Instructions Recorded Ritonavir [Norvir] 100 mg PO BID #0 tablet 01/07/13 Allopurinol [Zyloprim -] 100 mg PO DAILY 09/01/15 Carvedilol [Coreg -] 6.25 mg PO BID 09/01/15 Furosemide [Lasix -] 80 mg PO DAILY 09/01/15 Nifedipine [Nifedical Xl] 60 mg PO DAILY 09/01/15 Raltegravir [Isentress] 400 mg PO BID 09/01/15 Rilpivirine HCl [Edurant] 25 mg PO DAILY 09/01/15 Darunavir Ethanolate [Prezista -] 600 mg PO BID 07/09/16 Ranitidine [Zantac -] 150 mg PO DAILY 14 Days tablet 09/21/17 Tamsulosin HCl [Flomax -] 0.4 mg PO BID 14 Days cap.er.24h 09/21/17 Finasteride [Proscar -] 5 mg PO DAILY 11/05/17 Sodium Bicarbonate - 650 mg PO BID 11/05/17 hydrALAZINE HCL [Apresoline -] 25 mg PO BID 11/05/17 REVIEW OF SYSTEMS CONSTITUTIONAL: fever, chills, generalized weakness, malaise Absent: diaphoresis, loss of appetite, weight change HEENT: Absent: rhinorrhea, nasal congestion, throat pain, throat swelling, difficulty swallowing, mouth swelling, ear pain, eye pain, visual changes CARDIOVASCULAR: Absent: chest pain, syncope, palpitations, irregular heart rate, lightheadedness , peripheral edema RESPIRATORY: Absent: cough, shortness of breath, dyspnea with exertion, orthopnea, wheezing, stridor, hemoptysis GASTROINTESTINAL: Absent: abdominal pain, abdominal distension, nausea, vomiting, diarrhea, constipation, melena, hematochezia GENITOURINARY: Present: frequency, hesitancy Absent: dysuria, urgency, hematuria, flank pain, genital pain MUSCULOSKELETAL: Absent: myalgia, arthralgia, joint swelling, back pain, neck pain SKIN: Absent: rash, itching, pallor HEMATOLOGIC/IMMUNOLOGIC: Absent: easy bleeding, easy bruising, lymphadenopathy, frequent infections ENDOCRINE: Absent: unexplained weight gain, unexplained weight loss, heat intolerance, cold intolerance NEUROLOGIC: Absent: headache, focal weakness or paresthesias, dizziness, unsteady gait, seizure, mental status changes, bladder or bowel incontinence PSYCHIATRIC: Absent: anxiety, depression, suicidal or homicidal ideation, hallucinations. PHYSICAL EXAMINATION Vital Signs - 24 hr 3 11/04/17 23:13 Temperature 102.6 F H Pulse Rate 101 H Respiratory 20 Rate Blood Pressure 166/56 L O2 Sat by Pulse 98 Oximetry (%) GENERAL: Awake, alert, and fully oriented, in no acute distress. HEAD: Normal with no signs of trauma. EYES: Pupils equal, round and reactive to light, extraocular movements intact, sclera anicteric, conjunctiva clear. No lid lag. EARS, NOSE, THROAT: Ears normal, nares patent, oropharynx clear without exudates. Moist mucous membranes. NECK: Normal range of motion, supple without lymphadenopathy, JVD, or masses. LUNGS: Breath sounds equal, clear to auscultation bilaterally. No wheezes, and no crackles. No accessory muscle use. HEART: Regular rate and rhythm, normal S1 and S2 without murmur, rub or gallop. ABDOMEN: Soft, nontender, not distended, normoactive bowel sounds, no guarding, no rebound, no masses. No hepatomegaly or splenomegaly. MUSCULOSKELETAL: Normal range of motion at all joints. No bony deformities or tenderness. No CVA tenderness. UPPER EXTREMITIES: 2+ pulses, warm, well-perfused. No cyanosis. No clubbing. No peripheral edema. LOWER EXTREMITIES: 2+ pulses, warm, well-perfused. No calf tenderness. 1+ peripheral edema B/L. NEUROLOGICAL: Cranial nerves II-XII intact. Normal speech. Normal gait. PSYCHIATRIC: Cooperative. Good eye contact. Appropriate mood and affect. SKIN: Warm, dry, normal turgor, no rashes or lesions noted, normal capillary refill. Laboratory Results - last 24 hr 3 11/04/17 11/05/17 11/05/17 23:42 00:30 00:30 WBC 26.4 H RBC 3.00 L Hgb 8.9 L Hct 26.7 L MCV 89.0 MCH 29.6 MCHC 33.2 RDW 17.2 H Plt Count 68 L MPV 8.3 Absolute Neuts (auto) 0.8 L Neutrophils % 2.9 L Neutrophils % (Manual) 2.1 L Band Neutrophils % 0.0 Lymphocytes % 96.4 H Lymphocytes % (Manual) 86.2 H* Monocytes % 0.7 L Monocytes % (Manual) 12 H D Eosinophils % 0.0 Eosinophils % (Manual) 0.0 Basophils % 0.0 Basophils % (Manual) 0.0 Myelocytes % (Man) 0 Promyelocytes % (Man) 0 Blast Cells % (Manual) 0 Nucleated RBC % 0 Metamyelocytes 0 Hypochromia 2+ Platelet Estimate Decreased Polychromasia 0 Poikilocytosis 1+ Anisocytosis 1+ Microcytosis 1+ Macrocytosis 0 PT with INR 13.20 H INR 1.17 H PTT (Actin FS) 25.4 Sodium Potassium Chloride Carbon Dioxide Anion Gap BUN Creatinine Creat Clearance w eGFR Random Glucose Lactic Acid Calcium Total Bilirubin AST ALT Alkaline Phosphatase Troponin I Total Protein Albumin Urine Color Ltyellow Urine Appearance Slcloudy Urine pH 5.0 Ur Specific [place] 1.009 Urine Protein 3+ H Urine Glucose (UA) 1+ H Urine Ketones Negative Urine Blood 1+ H Urine Nitrite Negative Urine Bilirubin Negative Urine Urobilinogen Negative Ur Leukocyte Esterase Trace Urine WBC (Auto) 24 Urine RBC (Auto) 2 Urine Bacteria Rare Urine Mucus Rare 3 11/05/17 11/05/17 11/05/17 00:30 00:30 00:30 WBC RBC Hgb Hct MCV MCH MCHC RDW Plt Count MPV Absolute Neuts (auto) Neutrophils % Neutrophils % (Manual) Band Neutrophils % Lymphocytes % Lymphocytes % (Manual) Monocytes % Monocytes % (Manual) Eosinophils % Eosinophils % (Manual) Basophils % Basophils % (Manual) Myelocytes % (Man) Promyelocytes % (Man) Blast Cells % (Manual) Nucleated RBC % Metamyelocytes Hypochromia Platelet Estimate Polychromasia Poikilocytosis Anisocytosis Microcytosis Macrocytosis PT with INR INR PTT (Actin FS) Sodium 137 Potassium 4.7 Chloride 110 H Carbon Dioxide 16 L Anion Gap 11 BUN 83 H Creatinine 3.9 H Creat Clearance w eGFR 15.59 Random Glucose 148 H Lactic Acid 1.2 Calcium 8.0 L Total Bilirubin 0.4 AST 20 ALT 25 Alkaline Phosphatase 79 Troponin I 0.02 Total Protein 6.4 Albumin 3.7 Urine Color Urine Appearance Urine pH Ur Specific [place] Urine Protein Urine Glucose (UA) Urine Ketones Urine Blood Urine Nitrite Urine Bilirubin Urine Urobilinogen Ur Leukocyte Esterase Urine WBC (Auto) Urine RBC (Auto) Urine Bacteria Urine Mucus ECG Normal sinus rhythm vent rate 92, QTC [address]/T wave changes Radiology Reports CT abd/pel without contrast THIS IS A PRELIMINARY REPORT FROM IMAGING SENIOR AUDITOR IMPRESSION: 1. Prior acute sigmoid diverticulitis appears resolved since prior examination. Minimal residual strandy mesenteric inflammation in the left lower quadrant. 2. Left perinephric inflammation and inflammation adjacent to the left adrenal gland appears similar to prior exam. This could be infectious or inflammatory. Nonobstructive left renal calyceal stone is again seen. 3. Splenomegaly with pathologic abdominal and pelvic lymphadenopathy, similar to prior exam. This is suspicious for lymphoproliferative disease or metastasis. Small hyperdensity posteriorly along the spleen appears similar. 4. Trace gas non-dependently in the bladder could be secondary to instrumentation or infection. 5. Right adrenal nodule could represent an adenoma. 6. Hepatomegaly with hepatic parenchymal disease. THIS DOCUMENT HAS BEEN ELECTRONICALLY SIGNED Erick Joseph MD 11/05/2017 03:06 EST ASSESSMENT/PLAN: 67yM with PMH HIV, CLL (last chemo 04/2016), diverticulitis, BPH, HTN, anemia, DM , kidney stones, cirrhosis, Hep C s/p Harvoni treatment presented to the ED with fever, chills, weakness, urinary frequency, hesitancy and decreased stream. Sepsis secondary to UTI - As evidenced by elevated HR, WBC and fever and WBC in urine - cont vanc / zosyn - ID consult - received 1L NS in ED, BP stable, will defer further IVF given edema HTN - cont home meds DM - off all hypoglycemics, states his sugar was dropping on them - monitor BGM BID with novolog sliding scale, increase frequency if persistently elevated CKD - Cr 3.9, believes it was 3.8 upon DC from [facility], was 3.6 upon DC from here on 09/21 - cont to monitor - cont sodium bicarb - renal diet - consider renal consult BPH - PVR 250cc via straight cath, will defer ortiz unless PVR >400 - monitor urine output - cont finasteride and tamsulosisn cirrhosis - avoid nephrotoxic agents where possible DVT PPX - heparin deferred as platelet count 68, pt encouraged to ambulate FEN - hold further IVF given edema - BMP in am - renal diet as tolerated Dispo: Pt currently requires further inpatient management of his emergent condition. Visit type - Emergency Visit Emergency Visit: Yes ED Registration Date: 11/04/17 Care time: The patient presented to the Emergency Department on the above date and was hospitalized for further evaluation of their emergent condition. - New Patient This patient is new to me today: Yes Date on this admission: 11/05/17 - Critical Care Critical Care patient: No Hospitalist Screening - Colonoscopy Questionnaire Colonoscopy Questionnaire: Colonoscopy Questionnaire - Patient: 50 - 75 years old and never had a screening colonoscopy: No History of colon or rectal polyps, or CA: No History of IBD, Crohn's disease or UC: No History of abdominal radiation therapy as a child: No - Relative: 1 with colon or rectal CA, or polyps at age 60 or younger: No Colon or rectal CA diagnosed at age 45 or younger: No Multiple relatives with colon or rectal CA: No - Outcome: Screening Result: Negative Screen
[2017-11-05] MEDS ORDERED: ACETAMINOPHEN 325 MG TABLET (FP) ONE ×2 (05:32→12:36)
[2017-11-05] MEDS: ACETAMINOPHEN 325 MG TABLET (FP) PO PRN ×2 (05:36→12:34)
[2017-11-05] MEDS: INSULIN SLIDING SCALE (NOVOLOG) 1 VIAL SQ SCH ×2 (07:27→17:59)
[2017-11-05] MEDS: TAMSULOSIN HCL 0.4 MG CAP PO SCH ×2 (09:17→21:06)
[2017-11-05] MEDS ORDERED: FUROSEMIDE 40 MG TABLET (FP) PO SCH (10:00)
[2017-11-05] MEDS ORDERED: LOSARTAN POTASSIUM 25 MG TABLET PO SCH (10:00)
[2017-11-05] MEDS: RALTEGRAVIR POTASSIUM 400 MG TAB PO SCH ×2 (10:12→22:58)
[2017-11-05] MEDS: hydrALAZINE HCL 25 MG TABLET (FP) PO SCH ×2 (10:12→21:06)
[2017-11-05] MEDS: RILPIVIRINE HCL 25 MG TABLET PO SCH (10:12)
[2017-11-05] MEDS: CARVEDILOL 6.25 MG TABLET (FP) PO SCH ×2 (10:12→21:06)
[2017-11-05] MEDS: SODIUM BICARBONATE 650 MG TABLET PO SCH ×2 (10:13→22:57)
[2017-11-05] MEDS: NIFEdipine E.R 60 MG TABLET (UD) PO SCH (10:13)
[2017-11-05] MEDS: FINASTERIDE 5 MG TABLET (FP) PO SCH (10:13)
[2017-11-05] MEDS: ALLOPURINOL 100 MG TABLET (FP) PO SCH (10:13)
[2017-11-05] MEDS: DARUNAVIR ETHANOLATE 600 MG TAB PO SCH ×2 (10:13→22:57)
[2017-11-05] MEDS: RITONAVIR 100 MG TABLET PO SCH ×2 (10:13→22:57)
[2017-11-05] MEDS: RANITIDINE HCL 150 MG TABLET (FP) PO SCH (10:13)
--- NOTE | 2017-11-05 12:06 | EKG ---
Test Reason : Blood Pressure : / mmHG Vent. Rate : 092 BPM Atrial Rate : 092 BPM P-R Int : 156 ms QRS Dur : 098 ms QT Int : 378 ms P-R-T Axes : 059 014 038 degrees QTc Int : 467 ms NORMAL SINUS RHYTHM POSSIBLE LEFT ATRIAL ENLARGEMENT LEFT VENTRICULAR HYPERTROPHY ABNORMAL ECG WHEN COMPARED WITH ECG OF 16-SEP-2017 11:38, T WAVE INVERSION NO LONGER EVIDENT IN INFERIOR LEADS T WAVE INVERSION NO LONGER EVIDENT IN LATERAL LEADS Confirmed by LINDA VALADEZ MD ([id number]) on 11/05/2017 12:06:15 PM Referred By: Confirmed By:LINDA VALADEZ MD
--- NOTE | 2017-11-05 12:28 | PN ---
Physical Exam: SUBJECTIVE: Patient seen and examined this AM. He was up and moving around the holding room in the ED. He currently has no complaints and is asking when he can eat and go home. OBJECTIVE: Vital Signs Period Temp Pulse Resp BP Sys/Ventura Pulse Ox Last 24 Hr 98.2 F-102.6 F 83-101 18-20 140-166/56-66 98-98 GENERAL: A&O, no acute distress HEAD: Normocephalic, atraumatic. EYES: PERRL, no scleral icterus EARS, NOSE, THROAT: oropharynx clear without exudates. Moist mucous membranes. NECK: supple without lymphadenopathy LUNGS: CTA b/l, no crackles or wheezes HEART: Tachycardic, regular rhythm, normal S1 and S2 without murmur ABDOMEN: Soft, obese, nontender to palpation, normoactive bowel sounds MUSCULOSKELETAL: No bony deformities or tenderness, No CVA Tenderness EXTREMITIES: 2+ pulses, warm, well-perfused. No peripheral edema. NEUROLOGICAL: Cranial nerves II-XII grossly intact. Normal speech. PSYCHIATRIC: Cooperative. Good eye contact. Appropriate mood and affect. SKIN: Warm, dry, no rashes or lesions noted Laboratory Results - last 24 hr 11/04/17 11/05/17 11/05/17 23:42 00:30 00:30 WBC 26.4 H RBC 3.00 L Hgb 8.9 L Hct 26.7 L MCV 89.0 MCH 29.6 MCHC 33.2 RDW 17.2 H Plt Count 68 L MPV 8.3 Absolute Neuts (auto) 0.8 L Neutrophils % 2.9 L Neutrophils % (Manual) 2.1 L Band Neutrophils % 0.0 Lymphocytes % 96.4 H Lymphocytes % (Manual) 86.2 H* Monocytes % 0.7 L Monocytes % (Manual) 12 H D Eosinophils % 0.0 Eosinophils % (Manual) 0.0 Basophils % 0.0 Basophils % (Manual) 0.0 Myelocytes % (Man) 0 Promyelocytes % (Man) 0 Blast Cells % (Manual) 0 Nucleated RBC % 0 Metamyelocytes 0 Hypochromia 2+ Platelet Estimate Decreased Polychromasia 0 Poikilocytosis 1+ Anisocytosis 1+ Microcytosis 1+ Macrocytosis 0 PT with INR 13.20 H INR 1.17 H PTT (Actin FS) 25.4 Sodium Potassium Chloride Carbon Dioxide Anion Gap BUN Creatinine Creat Clearance w eGFR Random Glucose Lactic Acid Calcium Total Bilirubin AST ALT Alkaline Phosphatase Troponin I Total Protein Albumin Urine Color Ltyellow Urine Appearance Slcloudy Urine pH 5.0 Ur Specific [place] 1.009 Urine Protein 3+ H Urine Glucose (UA) 1+ H Urine Ketones Negative Urine Blood 1+ H Urine Nitrite Negative Urine Bilirubin Negative Urine Urobilinogen Negative Ur Leukocyte Esterase Trace Urine WBC (Auto) 24 Urine RBC (Auto) 2 Urine Bacteria Rare Urine Mucus Rare 11/05/17 11/05/17 11/05/17 00:30 00:30 00:30 WBC RBC Hgb Hct MCV MCH MCHC RDW Plt Count MPV Absolute Neuts (auto) Neutrophils % Neutrophils % (Manual) Band Neutrophils % Lymphocytes % Lymphocytes % (Manual) Monocytes % Monocytes % (Manual) Eosinophils % Eosinophils % (Manual) Basophils % Basophils % (Manual) Myelocytes % (Man) Promyelocytes % (Man) Blast Cells % (Manual) Nucleated RBC % Metamyelocytes Hypochromia Platelet Estimate Polychromasia Poikilocytosis Anisocytosis Microcytosis Macrocytosis PT with INR INR PTT (Actin FS) Sodium 137 Potassium 4.7 Chloride 110 H Carbon Dioxide 16 L Anion Gap 11 BUN 83 H Creatinine 3.9 H Creat Clearance w eGFR 15.59 Random Glucose 148 H Lactic Acid 1.2 Calcium 8.0 L Total Bilirubin 0.4 AST 20 ALT 25 Alkaline Phosphatase 79 Troponin I 0.02 Total Protein 6.4 Albumin 3.7 Urine Color Urine Appearance Urine pH Ur Specific [place] Urine Protein Urine Glucose (UA) Urine Ketones Urine Blood Urine Nitrite Urine Bilirubin Urine Urobilinogen Ur Leukocyte Esterase Urine WBC (Auto) Urine RBC (Auto) Urine Bacteria Urine Mucus Active Medications Generic Name Dose Route Start Last Admin Trade Name Freq PRN Reason Stop Dose Admin Acetaminophen 650 mg 11/05/17 04:54 11/05/17 05:36 Tylenol - PO 650 mg Q6H PRN Administration FEVER Allopurinol 100 mg 11/05/17 10:00 11/05/17 10:13 Zyloprim - PO 100 mg DAILY LIDIA Administration Carvedilol 6.25 mg 11/05/17 10:00 11/05/17 10:12 Coreg - PO 6.25 mg BID LIDIA Administration Darunavir 600 mg 11/05/17 10:00 11/05/17 10:13 Prezista - PO 600 mg BID LIDIA Administration Finasteride 5 mg 11/05/17 10:00 11/05/17 10:13 Proscar - PO 5 mg DAILY LIDIA Administration Hydralazine HCl 25 mg 11/05/17 10:00 11/05/17 10:12 Apresoline - PO 25 mg BID LIDIA Administration Sodium Chloride 1,000 mls @ 75 mls/hr 11/05/17 11:30 Normal Saline - IV 11/07/17 00:49 ASDIR LIDIA Insulin Aspart 1 vial 11/05/17 07:00 11/05/17 07:27 Novolog Vial Sliding Scale - SQ Not Given BIDAC [facility] Protocol Losartan Potassium 25 mg 11/05/17 10:00 11/05/17 10:12 Cozaar - PO Not Given DAILY LIDIA Nifedipine 60 mg 11/05/17 10:00 11/05/17 10:13 Procardia Xl - PO 60 mg DAILY LIDIA Administration Raltegravir 400 mg 11/05/17 10:00 11/05/17 10:12 Isentress - PO 400 mg BID LIDIA Administration Ranitidine HCl 150 mg 11/05/17 10:00 11/05/17 10:13 Zantac - PO 150 mg DAILY LIDIA Administration Ritonavir 100 mg 11/05/17 10:00 11/05/17 10:13 Norvir - PO 100 mg BID LIDIA Administration Sodium Bicarbonate 650 mg 11/05/17 10:00 11/05/17 10:13 Sodium Bicarbonate - PO 650 mg BID LIDIA Administration Tamsulosin HCl 0.4 mg 11/05/17 08:30 11/05/17 09:17 Flomax - PO 0.4 mg BID@0830,2200 LIDIA Administration ASSESSMENT/PLAN: 67 yo male with a significant past medical history of HIV, CLL, BPH, DM, Gout, HTN admitted with fever, chills and malaise Sepsis Secondary to Pylonephritis -Febrile (102.6) Tachycardic -Leukocytosis likely baseline with CLL -UA noted, awaiting C & S -CT Abd/Pelvis noted - 6mm calcification in left renal pole, Perinephric stranding -Given Vanc/Zosyn/Ceftriaxone in ED -ID consulted - will await recommendation for further abx BPH -Pt with recent ortiz removal via urology on 11/02/17 which was originally placed for urinary retention -Pt states he has had some decreased stream but is not complaining of any acute retention or suprapubic pain or fullness -Will monitor I's&O's and check post void bladder scan and monitor for need of Ortiz replacement Acute on Chronic Kidney Disease -could be secondary to sepsis or retention -Will monitor for retention as above -Will monitor renal calculus as above CLL with Leukocytosis and Thrombocytopenia -Stable, will monitor platelet count -Diffuse lymphadenopathy noted on CT Abd/Pelv DM -Hold home meds -BGMs ACHS -Insulin sliding scale for glycemic control Gout -No acute flareup at this time -Continue maintenance Allopurinol 100 mg PO Daily HTN -Hydralazine 25 mg PO BID -Coreg 6.25 mg PO BID -Cozaar 25 mg PO Daily -Procardia 60 mg PO Daily -Hold lasix for now -Blood pressures stable, will continue to monitor HIV -CD4 pending -Raltegravir, Ritonavir, Darunavir DVT Prophylaxis -Mechanical only, hold chemical AC due to low platelet count FEN -Fluids: NS @ 75 cc/hr -Electrolytes: No electrolyte abnormalities, BMP in AM -Nutrition: Regular Diet Disposition Med/Surg Visit type - Emergency Visit Emergency Visit: Yes ED Registration Date: 11/05/17 Care time: The patient presented to the Emergency Department on the above date and was hospitalized for further evaluation of their emergent condition. - New Patient This patient is new to me today: Yes Date on this admission: 11/05/17 - Critical Care Critical Care patient: No
[2017-11-05] MEDS: SODIUM CHLORIDE 1,000 ML IV SCH (12:34)
--- NOTE | 2017-11-05 13:45 | PN ---
Teaching Attending Note Name of Resident: Heath Varela ATTENDING PHYSICIAN STATEMENT I saw and evaluated the patient. I reviewed the resident's note and discussed the case with the resident. I agree with the resident's findings and plan as documented. SUBJECTIVE:c/o chills. states he was having fever and chills at home with Temp 102.5. no dysuria or urinary frequency but has sensation of incomplete voiding. had ortiz removed on Sunday. denies CP, SOB, N/V/C/D, dysuria or urinary frequency OBJECTIVE: Last Vital Signs Temp Pulse Resp BP Pulse Ox 99.5 F 76 18 121/51 L 99 11/05/17 12:33 11/05/17 12:33 11/05/17 09:30 11/05/17 12:33 11/05/17 12:33 General +chills CV S1 S2 RRR no murmur/rub/gallop Lungs CTA B/L no wheezing/rales/rhonchi Abdomen soft NT/ND no suprapubic distention or tenderness neg CVA tenderness ASSESSMENT AND PLAN: 67yo M with PMH HIV, CLL, BPH, HTN, CKD presented with fever and chills with sensation of incomplete voiding with sepsis due to pyelo 1. Sepsis due to pyelo- Tm 102.6 with tachycardia. His leukocytosis is consistent with previous and likely due to CLL. Received Vanco/zosyn/ Ceftriaxone in the ER. ID consulted. no +UCx in the past here. f/u Cx 2. Acute on CKD- due to sepsis vs retention. baseline Cr 2.2. renal u/s showing 250cc retained urine. will wait and repeat bladder scan if worsens will need to insert ortiz. I&O. 3. Thrombocytopenia- due to CLL. stable 4. HTN- controlled. cont management. hold lasix 5. BPH- monitor for retention. repeat bladder scan. may need ortiz placement. cont meds 6. HIV on HARRT 7. CLL 8. DVT ppx- SCD. hold pharmacolgic anticoag due to platelet count
--- NOTE | 2017-11-05 17:23 | PN ---
Progress Note (short form) - Note Progress Note: ID Consult dictated Probable acute L pyelonephritis ? passed stone Urinary retention CKD CLL HIV/AIDS Pending c/s empirically treat for hospital-acquired pathogens with zosyn, adjusted for CKD
[2017-11-05] MEDS ORDERED: DEXTROSE 5%-WATER - 50 ML IVPB ONE (17:57)
[2017-11-05] MEDS: PIPERACILLIN/TAZOB 2.25 GM 2.25 GM in DEXTROSE 5%-WATER - 50 ML IVPB SCH (18:01)
--- NOTE | 2017-11-05 18:45 | CONS ---
DATE OF CONSULTATION: 11/05/2017 A 67-year-old male evaluated for pyelonephritis. He has had several hospital admissions over the past 2 months. He was hospitalized in August at [facility] with acute diverticulitis. He was hospitalized for 10 days. Shortly after that he was hospitalized at [facility] for an additional 10 days for an infection, which he could not elaborate on. He received courses of IV antibiotic therapy in the hospital. He has a history of urinary retention and indwelling Lara catheter. He states the catheter had been present for several weeks before being removed recently. He was seen in followup by his urologist and was prescribed nitrofurantoin for 5 days for a urinary tract infection. He now presents with left-sided flank pain, urinary frequency, urinary retention, fever, chills, fatigue. He was evaluated in the emergency room where his temperature was 102.6, white blood cell count 26,000, although he has a history of CLL. A CAT scan was performed and showed a nonobstructing left renal stone and perinephric stranding. Cultures were obtained. He was empirically treated with vancomycin and Zosyn. At the present time, he complains of left flank pain. He denies dysuria; however, has urinary frequency and retention. He denies prior history of resistant urinary tract infections. He has a history of acquired-immunodeficiency syndrome; however, has been stable for many years on antiretroviral therapy. PAST MEDICAL HISTORY: Positive for diabetes mellitus, hypertension, acquired-immunodeficiency syndrome, CLL, BPH, diverticulosis, chronic kidney disease, hepatitis C treated in the past. ALLERGIES: No known drug allergies. MEDICATIONS: Include Tylenol, allopurinol, Coreg, Prezista Norvir, Isentress, Edurant, hydralazine, losartan, nifedipine, Flomax. SOCIAL HISTORY: He is a former smoker, lives at home in the community. REVIEW OF SYSTEMS: Neurologic: No loss of consciousness, seizure activity, focal weakness. Cardiac: Negative chest pain or palpitations. Respiratory: Negative cough or sputum production. Gastrointestinal: Negative vomiting or diarrhea. Genitourinary: As per HPI. LABORATORY DATA: White count 26.4, 96% lymphocytes, hematocrit 26.7, platelet count 68,000, creatinine 3.9. Urinalysis: 24 white cells. CAT scan of the abdomen and pelvis shows perinephric stranding on the left, nonobstructing left kidney stone, hepatosplenomegaly, and retroperitoneal adenopathy. PHYSICAL EXAMINATION: General: He is awake and alert. He is not acutely toxic appearing. Vital Signs: Temperature 99.5, temperature max is 102.6, blood pressure 121/51, pulse 76 and regular, respirations 18 per minute. HEENT: Sclerae anicteric. Neck: Supple. Heart Sounds: S1, S2. Lungs: Clear. Abdomen: Soft. There is left-sided abdominal tenderness and left CVA tenderness. Extremities: Negative for edema. Negative Flip's sign. IMPRESSION: 1. Probable acute left pyelonephritis. 2. Possible passed kidney stone. 3. Urinary retention. 4. Chronic kidney disease. 5. Chronic lymphocytic leukemia. 6. Acquired-immunodeficiency syndrome. 7. Chronic thrombocytopenia. In light of recent hospitalizations, I would empirically treat for possible hospital-acquired urinary tract pathogen with Zosyn adjusted for renal insufficiency. Await culture results. I would consider Urology evaluation and followup. I will follow. Thank you for the kind referral. MIKE STEINER M.D. [id number]
[2017-11-06] MEDS ORDERED: PIPERACILLIN/TAZOBACTAM 2.25 GM VIAL IVPB ONE ×3 (02:02→18:09)
[2017-11-06] MEDS ORDERED: DEXTROSE 5%-WATER - 50 ML IVPB ONE ×3 (02:02→18:09)
[2017-11-06] MEDS: PIPERACILLIN/TAZOB 2.25 GM 2.25 GM in DEXTROSE 5%-WATER - 50 ML IVPB SCH ×3 (02:11→18:16)
[2017-11-06] MEDS: INSULIN SLIDING SCALE (NOVOLOG) 1 VIAL SQ SCH ×2 (06:05→18:06)
[2017-11-06 07:55] LABS: BASO % 0.1 % (0-2.0); HEMATOCRIT 22.5 % (35.4-49); HEMOGLOBIN 7.2 GM/dL (11.7-16.9); LYMPH % 94.8 % (8-40); MCH 28.6 pg (25.7-33.7); MCHC 32.1 g/dl (32.0-35.9); MEAN PLT VOLUME 8.4 fl (7.5-11.1); NEUT % 3.1 % (42.8-82.8); PLATELET COUNT 44 K/MM3 (134-434); RBC 2.52 M/mm3 (4.00-5.60); RDW 17.2 % (11.9-15.9); WHITE BLOOD COUNT 14.4 K/mm3 (4.0-10.0)
--- NOTE | 2017-11-06 08:35 | PN ---
Teaching Attending Note Name of Resident: Heath Varela ATTENDING PHYSICIAN STATEMENT I saw and evaluated the patient. I reviewed the resident's note and discussed the case with the resident. I agree with the resident's findings and plan as documented with exceptions below. SUBJECTIVE: Patient seen and examined. Overall feels better, no new fevers/chills,abdominal pain or urinary symptoms. Reports h/o urinary dribbing, ortiz placed overnight. OBJECTIVE: Vital Signs Period Temp Pulse Resp BP Sys/Ventura Pulse Ox Last 24 Hr 97.6 F-99.5 F 74-83 18-20 107-140/49-66 98-99 Intake & Output 11/03/17 11/04/17 11/05/17 11/06/17 23:59 23:59 23:59 23:59 Intake Total 500 950 Output Total 1100 Balance 500 -150 Weight 168 lb General: sitting in bed in no acute distress CVS: S1S2 regular Chest: CTAB, no rales or wheezing Abdomen: soft, NT, ND, positive bowel sounds, no suprapubic or CVA tenderness Extremities: no edema Home Medications Medication Instructions Recorded Ritonavir [Norvir] 100 mg PO BID #0 tablet 01/07/13 Allopurinol [Zyloprim -] 100 mg PO DAILY 09/01/15 Carvedilol [Coreg -] 6.25 mg PO BID 09/01/15 Furosemide [Lasix -] 80 mg PO DAILY 09/01/15 Nifedipine [Nifedical Xl] 60 mg PO DAILY 09/01/15 Raltegravir [Isentress] 400 mg PO BID 09/01/15 Rilpivirine HCl [Edurant] 25 mg PO DAILY 09/01/15 Darunavir Ethanolate [Prezista -] 600 mg PO BID 07/09/16 Ranitidine [Zantac -] 150 mg PO DAILY 14 Days tablet 09/21/17 Tamsulosin HCl [Flomax -] 0.4 mg PO BID 14 Days cap.er.24h 09/21/17 Finasteride [Proscar -] 5 mg PO DAILY 11/05/17 Lidocaine 5% Patch [Lidoderm -] 1 patch TP BID 11/05/17 Losartan Potassium 50 mg PO DAILY 11/05/17 Sitagliptin Phosphate [Januvia] 25 mg PO DAILY 11/05/17 Sodium Bicarbonate - 650 mg PO BID 11/05/17 hydrALAZINE HCL [Apresoline -] 25 mg PO TID 11/05/17 Active Medications Acetaminophen (Tylenol -) 650 mg PO Q6H PRN PRN Reason: FEVER Last Admin: 11/05/17 12:34 Dose: 650 mg Allopurinol (Zyloprim -) 100 mg PO DAILY ON LICENSE OF [facility] Last Admin: 11/05/17 10:13 Dose: 100 mg Carvedilol (Coreg -) 6.25 mg PO BID ON LICENSE OF [facility] Last Admin: 11/05/17 21:06 Dose: 6.25 mg Darunavir (Prezista -) 600 mg PO BID ON LICENSE OF [facility] Last Admin: 11/05/17 22:57 Dose: 600 mg Finasteride (Proscar -) 5 mg PO DAILY ON LICENSE OF [facility] Last Admin: 11/05/17 10:13 Dose: 5 mg Hydralazine HCl (Apresoline -) 25 mg PO BID ON LICENSE OF [facility] Last Admin: 11/05/17 21:06 Dose: 25 mg Sodium Chloride (Normal Saline -) 1,000 mls @ 75 mls/hr IV ASDIR ON LICENSE OF [facility] Stop: 11/07/17 00:49 Last Admin: 11/05/17 12:34 Dose: 75 mls/hr Piperacillin Sod/Tazobactam (Sod 2.25 gm/ Dextrose) 50 mls @ 100 mls/hr IVPB Q8H-IV ON LICENSE OF [facility]; Protocol Last Admin: 11/06/17 02:11 Dose: 100 mls/hr Insulin Aspart (Novolog Vial Sliding Scale -) 1 vial SQ BIDAC ON LICENSE OF [facility]; Protocol Last Admin: 11/06/17 06:05 Dose: Not Given Nifedipine (Procardia Xl -) 60 mg PO DAILY ON LICENSE OF [facility] Last Admin: 11/05/17 10:13 Dose: 60 mg Raltegravir (Isentress -) 400 mg PO BID ON LICENSE OF [facility] Last Admin: 11/05/17 22:58 Dose: 400 mg Ranitidine HCl (Zantac -) 150 mg PO DAILY ON LICENSE OF [facility] Last Admin: 11/05/17 10:13 Dose: 150 mg Ritonavir (Norvir -) 100 mg PO BID ON LICENSE OF [facility] Last Admin: 11/05/17 22:57 Dose: 100 mg Sodium Bicarbonate (Sodium Bicarbonate -) 650 mg PO BID ON LICENSE OF [facility] Last Admin: 11/05/17 22:57 Dose: 650 mg Tamsulosin HCl (Flomax -) 0.4 mg PO BID@0830,2200 ON LICENSE OF [facility] Last Admin: 11/05/17 21:06 Dose: 0.4 mg Laboratory Results - last 24 hr 11/05/17 11/06/17 11/06/17 17:52 06:05 06:50 WBC 14.4 H RBC 2.52 L Hgb 7.2 L Hct 22.5 L D MCV 89.0 MCH 28.6 MCHC 32.1 RDW 17.2 H Plt Count 44 L D MPV 8.4 Absolute Neuts (auto) 0.5 L Neutrophils % 3.1 L Lymphocytes % 94.8 H Monocytes % 2.0 L D Eosinophils % 0.0 Basophils % 0.1 D Nucleated RBC % 0 POC Glucometer [address] a/P, renal/bladder US results reviewed ASSESSMENT AND PLAN: 67 yom with PMHx of CLL (s/p treatment 2 years ago, recent WBC 50s, being monitored), CKD stage IV (baseline Cr 2.2 in 06/2017), HIV on HAART (last viral load undetectable with CD4 >2000 in ), HCV s/p treatment, cirrhosis with portal hypertension, prior IV Heroine/cocaine use, exsmoker, HTN, Prior NICM last EF 65% in 2015, Cath x 2 with normal coronaries, NIDDM, chronic leg edema, admitted to [facility] in 08/2017 with RICHY/Anemia/possible acute diverticulitis/ abnormal EKG, comes with sepsis and RICHY. -Sepsis, likely secondary to left pyelonephritis -Chronic urinary retention, ?etiology -RICHY on CKD stage IV (baseline cr 2.2 in 06/2017, 3.6 on recent d/c on 09/21/2017) -Acute on chronic anemia, suspect multifactorial, from CKD/cirrhosis, cannot r/ o intermittent occult bleed -HIV on HAART -HCV s/p treatment -Cirrhosis with portal hypertension -Acute on chronic thrombocytopenia, suspect from cirrhosis/portal hypertension compounded by sepsis/hydration -Prior NICM, recent stress test in 09/2017 -NIDDM -Chronic leg edema -Recent ?mild acute diverticulitis Plan: ID input noted, zosyn day 2. FOllow up blood/urine cultures. Evidence of urinary retention, ortiz inserted. Continue flomax Urology input. Cr mildly worse from recent d/c in 09/2017. ?new baseline. Reports outpatient cr 3.8 2 weeks ago. Hold lasix/losartan. Renal dosing of meds, avoid nephrotoxins. Gentle hydration, hold lasix, renal input Dr. Wells. Transfuse 1 unit PRBC. Monitor for gross evidence of bleed. (recent FOBT pos in 09/2017, when evaluated by GI). Continue HAART. Continue coreg/nifedipine/hydralazine. DVTPPX with SCDs given thrombocytopenia Dispo pending clinical improvement. Plan discussed with patient in detail, all questions answered.
[2017-11-06 08:57] LABS: ANION GAP 11 MMOL/L (8-16); BLOOD UREA NITROGEN 86 mg/dL (7-18); CALCIUM 7.6 mg/dL (8.5-10.1); CHLORIDE 113 mmol/L (98-107); CO2 15 mmol/L (21-32); CREATININE 4.3 mg/dL (0.55-1.3); GLUCOSE,RANDOM 100 mg/dL (74-106); MAGNESIUM 2.2 mg/dL (1.8-2.4); PHOSPHOROUS 5.3 mg/dL (2.5-4.9); POTASSIUM 4.2 mmol/L (3.5-5.1); SODIUM 139 mmol/L (136-145)
--- NOTE | 2017-11-06 09:41 | PN ---
Physical Exam: SUBJECTIVE: Patient seen and examined this AM. He did not note any fevers or chills overnight. He is not complaining of any abdominal or suprapubic pain. He says that he was retaining last night and did require the Ortiz placed with good relief after placement. OBJECTIVE: Vital Signs Period Temp Pulse Resp BP Sys/Ventura Pulse Ox Last 24 Hr 97.6 F-99.5 F 74-78 18-20 107-128/49-55 99-99 GENERAL: A&O, no acute distress HEAD: Normocephalic, atraumatic. EYES: PERRL, no scleral icterus EARS, NOSE, THROAT: oropharynx clear without exudates. Moist mucous membranes. NECK: supple without lymphadenopathy LUNGS: CTA b/l, no crackles or wheezes HEART: Tachycardic, regular rhythm, normal S1 and S2 with systolic murmur ABDOMEN: Soft, obese, nontender to palpation, normoactive bowel sounds MUSCULOSKELETAL: No bony deformities or tenderness, Minimal to mild CVA Tenderness no the left EXTREMITIES: 2+ pulses, warm, well-perfused. No peripheral edema. NEUROLOGICAL: Cranial nerves II-XII grossly intact. Normal speech. PSYCHIATRIC: Cooperative. Good eye contact. Appropriate mood and affect. SKIN: Warm, dry, no rashes or lesions noted Laboratory Results - last 24 hr 11/05/17 11/06/17 11/06/17 17:52 06:05 06:50 WBC 14.4 H RBC 2.52 L Hgb 7.2 L Hct 22.5 L D MCV 89.0 MCH 28.6 MCHC 32.1 RDW 17.2 H Plt Count 44 L D MPV 8.4 Absolute Neuts (auto) 0.5 L Neutrophils % 3.1 L Lymphocytes % 94.8 H Monocytes % 2.0 L D Eosinophils % 0.0 Basophils % 0.1 D Nucleated RBC % 0 Sodium Potassium Chloride Carbon Dioxide Anion Gap BUN Creatinine Creat Clearance w eGFR POC Glucometer 161 119 Random Glucose Calcium Phosphorus Magnesium 11/06/17 06:50 WBC RBC Hgb Hct MCV MCH MCHC RDW Plt Count MPV Absolute Neuts (auto) Neutrophils % Lymphocytes % Monocytes % Eosinophils % Basophils % Nucleated RBC % Sodium 139 Potassium 4.2 Chloride 113 H Carbon Dioxide 15 L Anion Gap 11 BUN 86 H Creatinine 4.3 H Creat Clearance w eGFR 13.93 POC Glucometer Random Glucose 100 Calcium 7.6 L Phosphorus 5.3 H Magnesium 2.2 Active Medications Generic Name Dose Route Start Last Admin Trade Name Nicolasa PRN Reason Stop Dose Admin Acetaminophen 650 mg 11/05/17 04:54 11/05/17 12:34 Tylenol - PO 650 mg Q6H PRN Administration FEVER Allopurinol 100 mg 11/05/17 10:00 11/05/17 10:13 Zyloprim - PO 100 mg DAILY [facility] Administration Carvedilol 6.25 mg 11/05/17 10:00 11/05/17 21:06 Coreg - PO 6.25 mg BID [facility] Administration Darunavir 600 mg 11/05/17 10:00 11/05/17 22:57 Prezista - PO 600 mg BID [facility] Administration Finasteride 5 mg 11/05/17 10:00 11/05/17 10:13 Proscar - PO 5 mg DAILY [facility] Administration Hydralazine HCl 25 mg 11/05/17 10:00 11/05/17 21:06 Apresoline - PO 25 mg BID [facility] Administration Sodium Chloride 1,000 mls @ 75 mls/hr 11/05/17 11:30 11/05/17 12:34 Normal Saline - IV 11/07/17 00:49 75 mls/hr ASDIR [facility] Administration Piperacillin Sod/Tazobactam 50 mls @ 100 mls/hr 11/05/17 18:00 11/06/17 02:11 Sod 2.25 gm/ Dextrose IVPB 100 mls/hr Q8H-IV [facility] Administration Protocol Insulin Aspart 1 vial 11/05/17 07:00 11/06/17 06:05 Novolog Vial Sliding Scale - SQ Not Given BIDAC [facility] Protocol Nifedipine 60 mg 11/05/17 10:00 11/05/17 10:13 Procardia Xl - PO 60 mg DAILY [facility] Administration Raltegravir 400 mg 11/05/17 10:00 11/05/17 22:58 Isentress - PO 400 mg BID [facility] Administration Ranitidine HCl 150 mg 11/05/17 10:00 11/05/17 10:13 Zantac - PO 150 mg DAILY [facility] Administration Ritonavir 100 mg 11/05/17 10:00 11/05/17 22:57 Norvir - PO 100 mg BID [facility] Administration Sodium Bicarbonate 650 mg 11/05/17 10:00 11/05/17 22:57 Sodium Bicarbonate - PO 650 mg BID [facility] Administration Tamsulosin HCl 0.4 mg 11/05/17 08:30 11/05/17 21:06 Flomax - PO 0.4 mg BID@0830,2200 [facility] Administration ASSESSMENT/PLAN: 67 yo male with a significant past medical history of HIV, CLL, BPH, DM, Gout, HTN admitted with fever, chills and malaise Sepsis Secondary to Pylonephritis -Febrile (102.6) Tachycardic -Leukocytosis improving, elevation likely baseline with CLL -UA noted, awaiting C & S -CT Abd/Pelvis noted - 6mm calcification in left renal pole, Perinephric stranding -Given Vanc/Zosyn/Ceftriaxone in ED -ID consulted - Zosyn 2.25 gm Q8 BPH -Mild prostatic enlargement noted on CT A/P -Pt with recent ortiz removal via urology on 11/02/17 which was originally placed for urinary retention -Pt noted to be retaining overnight requiring insertion of a Ortiz -Pts urologist is at [facility] and does not come here, Urology consult placed for recommendations for current management Acute on Chronic Kidney Disease -Likely postobstructive secondary to urinary retention and renal calculus -Ortiz placed with relief of urinary retention -Nephrology consult placed CLL with Leukocytosis and Thrombocytopenia -Stable, will monitor platelet count -Diffuse lymphadenopathy noted on CT Abd/Pelv DM -Hold home meds -BGMs ACHS -Insulin sliding scale for glycemic control Gout -No acute flareup at this time -Continue maintenance Allopurinol 100 mg PO Daily HTN -Hydralazine 25 mg PO BID -Coreg 6.25 mg PO BID -Procardia 60 mg PO Daily -Hold lasix for now -Blood pressures stable, will continue to monitor HIV -CD4 pending -Raltegravir, Ritonavir, Darunavir DVT Prophylaxis -Mechanical only, hold chemical AC due to low platelet count FEN -Fluids: NS @ 75 cc/hr -Electrolytes: Phos elevated, recheck in AM, BMP in AM -Nutrition: Regular Diet Disposition Med/Surg Visit type - Emergency Visit Emergency Visit: Yes ED Registration Date: 11/05/17 Care time: The patient presented to the Emergency Department on the above date and was hospitalized for further evaluation of their emergent condition. - New Patient This patient is new to me today: No - Critical Care Critical Care patient: No
[2017-11-06] MEDS ORDERED: PT OWN MED DRAWER 7, Y5N ONE (10:04)
[2017-11-06] MEDS: RILPIVIRINE HCL 25 MG TABLET PO SCH (10:13)
[2017-11-06] MEDS: ALLOPURINOL 100 MG TABLET (FP) PO SCH (10:13)
[2017-11-06] MEDS: TAMSULOSIN HCL 0.4 MG CAP PO SCH ×2 (10:13→22:18)
[2017-11-06] MEDS: NIFEdipine E.R 60 MG TABLET (UD) PO SCH (10:13)
[2017-11-06] MEDS: SODIUM BICARBONATE 650 MG TABLET PO SCH ×2 (10:13→22:18)
[2017-11-06] MEDS: hydrALAZINE HCL 25 MG TABLET (FP) PO SCH ×2 (10:13→22:18)
[2017-11-06] MEDS: CARVEDILOL 6.25 MG TABLET (FP) PO SCH ×2 (10:13→22:18)
[2017-11-06] MEDS: RANITIDINE HCL 150 MG TABLET (FP) PO SCH ×2 (10:13→20:17)
[2017-11-06] MEDS: FINASTERIDE 5 MG TABLET (FP) PO SCH (10:13)
[2017-11-06] MEDS: RITONAVIR 100 MG TABLET PO SCH ×2 (10:14→22:19)
[2017-11-06] MEDS: RALTEGRAVIR POTASSIUM 400 MG TAB PO SCH ×2 (10:14→22:19)
[2017-11-06] MEDS: DARUNAVIR ETHANOLATE 600 MG TAB PO SCH ×2 (10:14→22:18)
[2017-11-06 10:57] LABS: ACANTHOCYTES 0; ANISOCYTOSIS 0; HELMET CELLS 0; HOWELL-JOLLY BODIES 0; MACROCYTOSIS 0; OVALOCYTE 0; PLATELET ESTIMATE DECREASED; ROULEAU 0; SICKELED CELLS 0; TARGET CELLS 0; TEAR DROP CELLS 0; TOXIC GRANULATION 0
--- NOTE | 2017-11-06 16:25 | CONSULT ---
Consult Consult Specialty:: Nephrology Reason for Consultation:: CKD - History of Present Illness Chief Complaint: dysuria, fever and chils History of Present Illness: Pt is a 67 year old male with pmhx of CKD, CLL, HIV, BPH, and urinary retention who presents with fevers and chills. He was discharged with a ortiz and did follow with urology. He did not tolerated a voiding trial. He says that he was treated for a UTI as well. He did follow wit his obstetric anaesthetist and says that his air conditioning mechanic was about 3.8. I was called to evaluate him for RICHY. He says he feels better today than yesterday. He was on 80 mg of lasix at home. - History Source History Provided By: Patient, Medical Record - Past Medical History Cardio/Vascular: Yes: HTN Hepatobiliary: Yes: Cirrhosis, Hepatitis C Renal/: Yes: Renal Inusuff, Other (hesitancy, intermittemncy, poor stream) Infectious Disease: Yes: HIV Endocrine: Yes: Diabetes Mellitus Additional Medical History: lymphocytic leuckemia - Past Surgical History Past Surgical History: Yes: None - Alcohol/Substance Use Hx Alcohol Use: No History of Substance Use: reports: Cocaine (quit x 25 yrs), Heroin - Smoking History Smoking history: Never smoked Have you smoked in the past 12 months: No Aproximately how many cigarettes per day: 0 If you are a former smoker, when did you quit?: > 25 yrs ago - Social History Usual Living Arrangement: Alone ADL: Independent History of Recent Travel: No Home Medications - Allergies Allergies/Adverse Reactions: Allergies Allergy/AdvReac Type Severity Reaction Status Date / Time lactose AdvReac Verified 11/05/17 10:14 - Home Medications Home Medications: Ambulatory Orders Ritonavir [Norvir] 100 mg PO BID #0 tablet 01/07/13 Allopurinol [Zyloprim -] 100 mg PO DAILY 09/01/15 Carvedilol [Coreg -] 6.25 mg PO BID 09/01/15 Furosemide [Lasix -] 80 mg PO DAILY 09/01/15 Nifedipine [Nifedical Xl] 60 mg PO DAILY 09/01/15 Raltegravir [Isentress] 400 mg PO BID 09/01/15 Rilpivirine HCl [Edurant] 25 mg PO DAILY 09/01/15 Darunavir Ethanolate [Prezista -] 600 mg PO BID 07/09/16 Ranitidine [Zantac -] 150 mg PO DAILY 14 Days tablet 09/21/17 Tamsulosin HCl [Flomax -] 0.4 mg PO BID 14 Days cap.er.24h 09/21/17 Finasteride [Proscar -] 5 mg PO DAILY 11/05/17 Lidocaine 5% Patch [Lidoderm -] 1 patch TP BID 11/05/17 Losartan Potassium 50 mg PO DAILY 11/05/17 Sitagliptin Phosphate [Januvia] 25 mg PO DAILY 11/05/17 Sodium Bicarbonate - 650 mg PO BID 11/05/17 hydrALAZINE HCL [Apresoline -] 25 mg PO TID 11/05/17 Family Disease History - Family Disease History Family Disease History: Heart Disease: Father ( of [place] at 55, ETOH), Other: Father, Mother (hypertension), Sister (hypertension) Review of Systems - Review of Systems Constitutional: reports: Chills, Fever, Malaise Eyes: reports: No Symptoms HENT: reports: No Symptoms Neck: reports: No Symptoms Cardiovascular: reports: No Symptoms Respiratory: reports: No Symptoms Gastrointestinal: reports: No Symptoms Genitourinary: reports: Other (retention) Musculoskeletal: reports: No Symptoms Integumentary: reports: No Symptoms Neurological: reports: No Symptoms Hematology/Lymphatic: reports: No Symptoms Psychiatric: reports: No Symptoms Physical Exam Vital Signs: Vital Signs Temperature 98.6 F 11/06/17 10:00 Pulse Rate 74 11/06/17 10:00 Respiratory Rate 19 11/06/17 10:00 Blood Pressure 124/60 11/06/17 10:00 O2 Sat by Pulse Oximetry (%) 99 11/06/17 09:00 Constitutional: Yes: Calm Eyes: Yes: Conjunctiva Clear HENT: Yes: Atraumatic Cardiovascular: Yes: S1, S2 Respiratory: Yes: CTA Bilaterally Gastrointestinal: Yes: Soft Renal/: Yes: Ortiz Present Edema: Yes Edema: LLE: 1+, RLE: 1+ Neurological: Yes: Oriented Psychiatric: Yes: Oriented Labs: CBC, BMP 11/06/17 06:50 11/06/17 06:50 Microbiology 11/04/17 23:42 Urine - Urine Clean Catch Urine Culture - Preliminary 11/04/17 00:30 Blood - Peripheral Venous Blood Culture - Preliminary NO GROWTH OBTAINED AFTER 24 HOURS, INCUBATION TO CONTINUE FOR 4 DAYS. 11/04/17 00:30 Blood - Peripheral Venous Blood Culture - Preliminary NO GROWTH OBTAINED AFTER 24 HOURS, INCUBATION TO CONTINUE FOR 4 DAYS. Laboratory Tests 09/20/17 09/21/17 11/04/17 05:45 05:45 23:42 WBC Hgb Sodium BUN Creatinine 3.8 H 3.6 H Urine Protein 3+ H Urine Blood 1+ H 11/05/17 11/05/17 11/06/17 00:30 00:30 06:50 WBC 26.4 H 14.4 H Hgb 8.9 L 7.2 L Sodium BUN Creatinine 3.9 H Urine Protein Urine Blood 11/06/17 06:50 WBC Hgb Sodium 139 BUN 86 H Creatinine 4.3 H Urine Protein Urine Blood Imaging - Results Chest X-ray: Report Reviewed Problem List - Problems (1) CKD (chronic kidney disease) Code(s): N18.9 - CHRONIC KIDNEY DISEASE, UNSPECIFIED (2) CLL (chronic lymphocytic leukemia) Code(s): C91.90 - LYMPHOID LEUKEMIA, UNSPECIFIED NOT HAVING ACHIEVED REMISSION (3) Human immunodeficiency virus (HIV) seropositivity Code(s): Z21 - ASYMPTOMATIC HUMAN IMMUNODEFICIENCY VIRUS INFECTION STATUS (4) Sepsis Code(s): A41.9 - SEPSIS, UNSPECIFIED ORGANISM Qualifiers: Sepsis type: sepsis due to unspecified organism Qualified Code(s): A41.9 - Sepsis, unspecified organism (5) Chronic hepatitis C Code(s): B18.2 - CHRONIC VIRAL HEPATITIS C Assessment/Plan Current Medications Generic Name Dose Route Start Last Admin Trade Name Freq PRN Reason Stop Dose Admin Acetaminophen 650 mg 11/05/17 04:54 11/05/17 12:34 Tylenol - PO 650 mg Q6H PRN Administration FEVER Allopurinol 100 mg 11/05/17 10:00 11/06/17 10:13 Zyloprim - PO 100 mg DAILY [facility] Administration Carvedilol 6.25 mg 11/05/17 10:00 11/06/17 10:13 Coreg - PO 6.25 mg BID [facility] Administration Darunavir 600 mg 11/05/17 10:00 11/06/17 10:14 Prezista - PO 600 mg BID [facility] Administration Finasteride 5 mg 11/05/17 10:00 11/06/17 10:13 Proscar - PO 5 mg DAILY [facility] Administration Hydralazine HCl 25 mg 11/05/17 10:00 11/06/17 10:13 Apresoline - PO 25 mg BID [facility] Administration Sodium Chloride 1,000 mls @ 75 mls/hr 11/05/17 11:30 11/05/17 12:34 Normal Saline - IV 11/07/17 00:49 75 mls/hr ASDIR [facility] Administration Piperacillin Sod/Tazobactam 50 mls @ 100 mls/hr 11/05/17 18:00 11/06/17 10:14 Sod 2.25 gm/ Dextrose IVPB 100 mls/hr Q8H-IV [facility] Administration Protocol Insulin Aspart 1 vial 11/05/17 07:00 11/06/17 06:05 Novolog Vial Sliding Scale - SQ Not Given BIDAC [facility] Protocol Nifedipine 60 mg 11/05/17 10:00 11/06/17 10:13 Procardia Xl - PO 60 mg DAILY [facility] Administration Raltegravir 400 mg 11/05/17 10:00 11/06/17 10:14 Isentress - PO 400 mg BID [facility] Administration Ranitidine HCl 150 mg 11/05/17 10:00 11/06/17 10:13 Zantac - PO Not Given DAILY [facility] Ritonavir 100 mg 11/05/17 10:00 11/06/17 10:14 Norvir - PO 100 mg BID [facility] Administration Sodium Bicarbonate 650 mg 11/05/17 10:00 11/06/17 10:13 Sodium Bicarbonate - PO 650 mg BID [facility] Administration Tamsulosin HCl 0.4 mg 11/05/17 08:30 11/06/17 10:13 Flomax - PO 0.4 mg BID@0830,2200 [facility] Administration Impression 1. CKD 2. urinary retention 3. HIV 4. liver cirrhosis 5. Hep C 6. nephrolothiasis 7. DM 8. BPH 9. HTN 10. CLL 11. anemia Plan - repeat labs in am - pt with CKD, will monitor renal function - pt getting prbc - can hold dose of lasix - will follow pt - check urine lytes and air conditioning mechanic - may have worsening of renal function from pre-renal disease Dr Wells
[2017-11-06] MEDS: SODIUM CHLORIDE 1,000 ML IV SCH (18:16)
[2017-11-06] MEDS: ACETAMINOPHEN 325 MG TABLET (FP) PO PRN (22:19)
[2017-11-07] MEDS ORDERED: PIPERACILLIN/TAZOBACTAM 2.25 GM VIAL IVPB ONE ×3 (01:53→17:13)
[2017-11-07] MEDS ORDERED: DEXTROSE 5%-WATER - 50 ML IVPB ONE ×3 (01:53→17:13)
[2017-11-07] MEDS: PIPERACILLIN/TAZOB 2.25 GM 2.25 GM in DEXTROSE 5%-WATER - 50 ML IVPB SCH ×3 (02:04→18:08)
[2017-11-07] MEDS: INSULIN SLIDING SCALE (NOVOLOG) 1 VIAL SQ SCH ×2 (06:50→18:08)
[2017-11-07 07:24] LABS: EOS % 0.1 % (0-4.5); HEMATOCRIT 24.4 % (35.4-49); HEMOGLOBIN 7.8 GM/dL (11.7-16.9); LYMPH % 96.3 % (8-40); MCH 28.2 pg (25.7-33.7); MCHC 32.1 g/dl (32.0-35.9); MEAN CELL VOLUME 87.9 fl (80-96); MEAN PLT VOLUME 8.6 fl (7.5-11.1); MONO % 0.7 % (3.8-10.2); NEUT % 2.9 % (42.8-82.8); PLATELET COUNT 48 K/MM3 (134-434); RBC 2.78 M/mm3 (4.00-5.60); WHITE BLOOD COUNT 14.3 K/mm3 (4.0-10.0)
[2017-11-07 07:51] LABS: ANION GAP 12 MMOL/L (8-16); BLOOD UREA NITROGEN 98 mg/dL (7-18); CALCIUM 7.9 mg/dL (8.5-10.1); CHLORIDE 117 mmol/L (98-107); CO2 13 mmol/L (21-32); GLUCOSE,RANDOM 109 mg/dL (74-106); MAGNESIUM 2.2 mg/dL (1.8-2.4); PHOSPHOROUS 5.8 mg/dL (2.5-4.9); POTASSIUM 4.5 mmol/L (3.5-5.1); SODIUM 142 mmol/L (136-145)
[2017-11-07] MEDS: TAMSULOSIN HCL 0.4 MG CAP PO SCH ×2 (08:30→22:32)
[2017-11-07] MEDS ORDERED: CALCIUM ACETATE 667 MG CAPSULE (FP) PO ONE (08:30)
[2017-11-07] MEDS ORDERED: PT OWN MED DRAWER 7, Y5N ONE ×2 (11:29→21:02)
[2017-11-07] MEDS: RANITIDINE HCL 150 MG TABLET (FP) PO SCH ×2 (11:31→18:14)
[2017-11-07] MEDS: CARVEDILOL 6.25 MG TABLET (FP) PO SCH ×2 (11:31→22:32)
[2017-11-07] MEDS: NIFEdipine E.R 60 MG TABLET (UD) PO SCH (11:31)
[2017-11-07] MEDS: FINASTERIDE 5 MG TABLET (FP) PO SCH (11:32)
[2017-11-07] MEDS: hydrALAZINE HCL 25 MG TABLET (FP) PO SCH ×2 (11:32→22:32)
[2017-11-07] MEDS: ALLOPURINOL 100 MG TABLET (FP) PO SCH (11:32)
[2017-11-07] MEDS: SODIUM BICARBONATE 650 MG TABLET PO SCH ×2 (11:32→22:32)
[2017-11-07] MEDS: RILPIVIRINE HCL 25 MG TABLET PO SCH (11:33)
[2017-11-07] MEDS: RITONAVIR 100 MG TABLET PO SCH ×2 (11:33→22:33)
[2017-11-07] MEDS: DARUNAVIR ETHANOLATE 600 MG TAB PO SCH ×2 (11:33→22:33)
[2017-11-07] MEDS: RALTEGRAVIR POTASSIUM 400 MG TAB PO SCH ×2 (11:33→22:33)
--- NOTE | 2017-11-07 14:57 | PN ---
Teaching Attending Note Name of Resident: Heath Varela ATTENDING PHYSICIAN STATEMENT I saw and evaluated the patient. I reviewed the resident's note and discussed the case with the resident. I agree with the resident's findings and plan as documented with exceptions below. SUBJECTIVE: Patient seen and examined. no new fevers, chills, nausea, vomiting, abdominal pain or urinary symptoms. No new dyspnea noted. OBJECTIVE: Vital Signs Period Temp Pulse Resp BP Sys/Ventura Pulse Ox Last 24 Hr 98.1 F-98.8 F 65-74 19-20 102-140/47-66 99 Intake & Output 11/04/17 11/05/17 11/06/17 11/07/17 23:59 23:59 23:59 23:59 Intake Total 500 1915 1550 Output Total 1700 450 Balance 065 617 8211 Weight 168 lb 168 lb General: ambulating in room in no acute distress Abdomen;more distended today, NT throughout, positive bowel sounds Extremities: no edema Chest; CTAB, no rales or wheezing Active Medications Acetaminophen (Tylenol -) 650 mg PO Q6H PRN PRN Reason: FEVER Last Admin: 11/06/17 22:19 Dose: 650 mg Allopurinol (Zyloprim -) 100 mg PO DAILY [facility] Last Admin: 11/07/17 11:32 Dose: 100 mg Carvedilol (Coreg -) 6.25 mg PO BID [facility] Last Admin: 11/07/17 11:31 Dose: 6.25 mg Darunavir (Prezista -) 600 mg PO BID [facility] Last Admin: 11/07/17 11:33 Dose: 600 mg Finasteride (Proscar -) 5 mg PO DAILY [facility] Last Admin: 11/07/17 11:32 Dose: 5 mg Hydralazine HCl (Apresoline -) 25 mg PO BID [facility] Last Admin: 11/07/17 11:32 Dose: 25 mg Piperacillin Sod/Tazobactam (Sod 2.25 gm/ Dextrose) 50 mls @ 100 mls/hr IVPB Q8H-IV [facility]; Protocol Last Admin: 11/07/17 11:32 Dose: 100 mls/hr Insulin Aspart (Novolog Vial Sliding Scale -) 1 vial SQ BIDAC [facility]; Protocol Last Admin: 11/07/17 06:50 Dose: Not Given Nifedipine (Procardia Xl -) 60 mg PO DAILY [facility] Last Admin: 11/07/17 11:31 Dose: 60 mg Raltegravir (Isentress -) 400 mg PO BID [facility] Last Admin: 11/07/17 11:33 Dose: 400 mg Ranitidine HCl (Zantac -) 150 mg PO DAILY [facility] Last Admin: 11/07/17 11:31 Dose: 150 mg Ritonavir (Norvir -) 100 mg PO BID [facility] Last Admin: 11/07/17 11:33 Dose: 100 mg Sodium Bicarbonate (Sodium Bicarbonate -) 650 mg PO BID [facility] Last Admin: 11/07/17 11:32 Dose: 650 mg Tamsulosin HCl (Flomax -) 0.4 mg PO BID@0830,2200 [facility] Last Admin: 11/07/17 08:30 Dose: 0.4 mg Laboratory Results - last 24 hr 11/06/17 11/07/17 11/07/17 18:05 02:04 02:04 WBC RBC Hgb Hct MCV MCH MCHC RDW Plt Count MPV Absolute Neuts (auto) Total Counted Neutrophils % Neutrophils % (Manual) Lymphocytes % Lymphocytes % (Manual) Monocytes % Monocytes % (Manual) Eosinophils % Basophils % Nucleated RBC % Sodium Potassium Chloride Carbon Dioxide Anion Gap BUN Creatinine Creat Clearance w eGFR POC Glucometer 119 Random Glucose Calcium Phosphorus Magnesium Ur Random Sodium < 18 L Ur Random Potassium 26.0 Ur Random Chloride < 11 L Urine Creatinine 116.0 H 11/07/17 11/07/17 11/07/17 06:20 06:20 06:46 WBC 14.3 H RBC 2.78 L Hgb 7.8 L Hct 24.4 L MCV 87.9 MCH 28.2 MCHC 32.1 RDW 18.0 H Plt Count 48 L MPV 8.6 Absolute Neuts (auto) 0.4 L Total Counted 100 Neutrophils % 2.9 L Neutrophils % (Manual) 4.0 L Lymphocytes % 96.3 H Lymphocytes % (Manual) 95.0 H* Monocytes % 0.7 L Monocytes % (Manual) 1 L Eosinophils % 0.1 D Basophils % 0.0 Nucleated RBC % 0 Sodium 142 Potassium 4.5 Chloride 117 H Carbon Dioxide 13 L Anion Gap 12 BUN 98 H Creatinine 5.0 H Creat Clearance w eGFR 11.71 POC Glucometer 126 Random Glucose 109 H Calcium 7.9 L Phosphorus 5.8 H Magnesium 2.2 Ur Random Sodium Ur Random Potassium Ur Random Chloride Urine Creatinine 11/07/17 12:38 WBC RBC Hgb Hct MCV MCH MCHC RDW Plt Count MPV Absolute Neuts (auto) Total Counted Neutrophils % Neutrophils % (Manual) Lymphocytes % Lymphocytes % (Manual) Monocytes % Monocytes % (Manual) Eosinophils % Basophils % Nucleated RBC % Sodium Potassium Chloride Carbon Dioxide Anion Gap BUN Creatinine Creat Clearance w eGFR POC Glucometer 121 Random Glucose Calcium Phosphorus Magnesium Ur Random Sodium Ur Random Potassium Ur Random Chloride Urine Creatinine Microbiology 11/04/17 23:42 Urine - Urine Clean Catch Urine Culture - Preliminary Gram Negative Bill Gram Negative Bill#2 11/04/17 00:30 Blood - Peripheral Venous Blood Culture - Preliminary NO GROWTH OBTAINED AFTER 48 HOURS, INCUBATION TO CONTINUE FOR 3 DAYS. 11/04/17 00:30 Blood - Peripheral Venous Blood Culture - Preliminary NO GROWTH OBTAINED AFTER 48 HOURS, INCUBATION TO CONTINUE FOR 3 DAYS. ASSESSMENT AND PLAN: 67 yom with PMHx of CLL (s/p treatment 2 years ago, recent WBC 50s, being monitored), CKD stage IV (baseline Cr 2.2 in 06/2017), HIV on HAART (last viral load undetectable with CD4 >2000 in ), HCV s/p treatment, cirrhosis with portal hypertension, prior IV Heroine/cocaine use, exsmoker, HTN, Prior NICM last EF 65% in 2015, Cath x 2 with normal coronaries, NIDDM, chronic leg edema, admitted to [facility] in 08/2017 with RICHY/Anemia/possible acute diverticulitis/ abnormal EKG, comes with sepsis and RICHY. -Sepsis, likely secondary to left pyelonephritis -Chronic urinary retention, ?etiology -RICHY on CKD stage IV (baseline cr 2.2 in 06/2017, 3.6 on recent d/c on 09/21/2017) -Acute on chronic anemia, suspect multifactorial, from CKD/cirrhosis, cannot r/ o intermittent occult bleed -HIV on HAART -HCV s/p treatment -Cirrhosis with portal hypertension -Acute on chronic thrombocytopenia, suspect from cirrhosis/portal hypertension compounded by sepsis/hydration -Prior NICM, recent stress test in 09/2017 -NIDDM -Chronic leg edema -Recent ?mild acute diverticulitis Plan: ID input noted, zosyn day 3. Blood cx neg, urine cx noted, follow up final results. Continue ortiz, Strict I/os, flomax and urology input. Cr continues to Rise,discussed with Dr. Wells. Monitor for now. Off IVF last night, s/p 1 unit PRBC, with appropriate response. ABdomen more distended today, check abdominal US. Introduce diuretics over next 24-48 hours based on renal function and volume status. Hold ARB. Renal dosing of meds, avoid nephrotoxins. No gross evidence of bleed, trend H/h. Continue HAART. Continue coreg/nifedipine/hydralazine. DVTPPX with SCDs given thrombocytopenia Dispo pending clinical improvement. Plan discussed with patient in detail, all questions answered.
--- NOTE | 2017-11-07 16:02 | PN ---
Physical Exam: SUBJECTIVE: Patient seen and examined this AM. He states that he has had some sharp pain off and on in his left lower quadrant. He is tolerating the Ortiz well, but requests something to help him move his bowels. OBJECTIVE: Vital Signs Period Temp Pulse Resp BP Sys/Ventura Pulse Ox Last 24 Hr 97.6 F-98.8 F 65-75 19-20 102-140/47-66 99-99 GENERAL: A&O, no acute distress HEAD: Normocephalic, atraumatic. EYES: PERRL, no scleral icterus EARS, NOSE, THROAT: oropharynx clear without exudates. Moist mucous membranes. NECK: supple without lymphadenopathy LUNGS: CTA b/l, no crackles or wheezes HEART: Regular rate and rhythm, normal S1 and S2 with systolic murmur ABDOMEN: Soft, obese, nontender to palpation, though he states pain comes and goes, normoactive bowel sounds MUSCULOSKELETAL: No bony deformities or tenderness, Minimal to mild CVA Tenderness no the left EXTREMITIES: 2+ pulses, warm, well-perfused. No peripheral edema. : Ortiz in place, draining, though decreased amount. NEUROLOGICAL: Cranial nerves II-XII grossly intact. Normal speech. PSYCHIATRIC: Cooperative. Good eye contact. Appropriate mood and affect. Laboratory Results - last 24 hr 11/06/17 11/07/17 11/07/17 18:05 02:04 02:04 WBC RBC Hgb Hct MCV MCH MCHC RDW Plt Count MPV Absolute Neuts (auto) Total Counted Neutrophils % Neutrophils % (Manual) Lymphocytes % Lymphocytes % (Manual) Monocytes % Monocytes % (Manual) Eosinophils % Basophils % Nucleated RBC % Sodium Potassium Chloride Carbon Dioxide Anion Gap BUN Creatinine Creat Clearance w eGFR POC Glucometer 119 Random Glucose Calcium Phosphorus Magnesium Ur Random Sodium < 18 L Ur Random Potassium 26.0 Ur Random Chloride < 11 L Urine Creatinine 116.0 H 11/07/17 11/07/17 11/07/17 06:20 06:20 06:46 WBC 14.3 H RBC 2.78 L Hgb 7.8 L Hct 24.4 L MCV 87.9 MCH 28.2 MCHC 32.1 RDW 18.0 H Plt Count 48 L MPV 8.6 Absolute Neuts (auto) 0.4 L Total Counted 100 Neutrophils % 2.9 L Neutrophils % (Manual) 4.0 L Lymphocytes % 96.3 H Lymphocytes % (Manual) 95.0 H* Monocytes % 0.7 L Monocytes % (Manual) 1 L Eosinophils % 0.1 D Basophils % 0.0 Nucleated RBC % 0 Sodium 142 Potassium 4.5 Chloride 117 H Carbon Dioxide 13 L Anion Gap 12 BUN 98 H Creatinine 5.0 H Creat Clearance w eGFR 11.71 POC Glucometer 126 Random Glucose 109 H Calcium 7.9 L Phosphorus 5.8 H Magnesium 2.2 Ur Random Sodium Ur Random Potassium Ur Random Chloride Urine Creatinine 11/07/17 12:38 WBC RBC Hgb Hct MCV MCH MCHC RDW Plt Count MPV Absolute Neuts (auto) Total Counted Neutrophils % Neutrophils % (Manual) Lymphocytes % Lymphocytes % (Manual) Monocytes % Monocytes % (Manual) Eosinophils % Basophils % Nucleated RBC % Sodium Potassium Chloride Carbon Dioxide Anion Gap BUN Creatinine Creat Clearance w eGFR POC Glucometer 121 Random Glucose Calcium Phosphorus Magnesium Ur Random Sodium Ur Random Potassium Ur Random Chloride Urine Creatinine Active Medications Generic Name Dose Route Start Last Admin Trade Name Freq PRN Reason Stop Dose Admin Acetaminophen 650 mg 11/05/17 04:54 11/06/17 22:19 Tylenol - PO 650 mg Q6H PRN Administration FEVER Allopurinol 100 mg 11/05/17 10:00 11/07/17 11:32 Zyloprim - PO 100 mg DAILY [facility] Administration Carvedilol 6.25 mg 11/05/17 10:00 11/07/17 11:31 Coreg - PO 6.25 mg BID [facility] Administration Darunavir 600 mg 11/05/17 10:00 11/07/17 11:33 Prezista - PO 600 mg BID [facility] Administration Finasteride 5 mg 11/05/17 10:00 11/07/17 11:32 Proscar - PO 5 mg DAILY [facility] Administration Hydralazine HCl 25 mg 11/05/17 10:00 11/07/17 11:32 Apresoline - PO 25 mg BID [facility] Administration Piperacillin Sod/Tazobactam 50 mls @ 100 mls/hr 11/05/17 18:00 11/07/17 11:32 Sod 2.25 gm/ Dextrose IVPB 100 mls/hr Q8H-IV [facility] Administration Protocol Insulin Aspart 1 vial 11/05/17 07:00 11/07/17 06:50 Novolog Vial Sliding Scale - SQ Not Given BIDAC [facility] Protocol Nifedipine 60 mg 11/05/17 10:00 11/07/17 11:31 Procardia Xl - PO 60 mg DAILY [facility] Administration Raltegravir 400 mg 11/05/17 10:00 11/07/17 11:33 Isentress - PO 400 mg BID [facility] Administration Ranitidine HCl 150 mg 11/05/17 10:00 11/07/17 11:31 Zantac - PO 150 mg DAILY [facility] Administration Ritonavir 100 mg 11/05/17 10:00 11/07/17 11:33 Norvir - PO 100 mg BID [facility] Administration Sodium Bicarbonate 650 mg 11/05/17 10:00 11/07/17 11:32 Sodium Bicarbonate - PO 650 mg BID [facility] Administration Tamsulosin HCl 0.4 mg 11/05/17 08:30 11/07/17 08:30 Flomax - PO 0.4 mg BID@0830,2200 [facility] Administration ASSESSMENT/PLAN: 67 yo male with a significant past medical history of HIV, CLL, BPH, DM, Gout, HTN admitted with fever, chills and malaise Sepsis Secondary to Pylonephritis -Febrile (102.6) Tachycardic -Leukocytosis improving, elevation likely baseline with CLL -UA noted, awaiting C & S - preliminary Gram neg naun -CT Abd/Pelvis noted - 6mm calcification in left renal pole, Perinephric stranding -Given Vanc/Zosyn/Ceftriaxone in ED -ID consulted - Zosyn 2.25 gm Q8 BPH -Mild prostatic enlargement noted on CT A/P -Pt with recent ortiz removal via urology on 11/02/17 which was originally placed for urinary retention -Pt noted to be retaining overnight requiring insertion of a Ortiz -Pts urologist is at [facility] and does not come here, Urology consult placed for recommendations for current management Acute on Chronic Kidney Disease -Likely postobstructive secondary to urinary retention and renal calculus -Ortiz placed with relief of urinary retention -Worsening renal function still -Nephrology consult appreciated -Bicarb CLL with Leukocytosis and Thrombocytopenia -Stable, will monitor platelet count -Diffuse lymphadenopathy noted on CT Abd/Pelv DM -Hold home meds -BGMs ACHS -Insulin sliding scale for glycemic control Gout -No acute flareup at this time -Continue maintenance Allopurinol 100 mg PO Daily HTN -Hydralazine 25 mg PO BID -Coreg 6.25 mg PO BID -Procardia 60 mg PO Daily -Hold lasix for now -Blood pressures stable, will continue to monitor HIV -CD4 pending -Raltegravir, Ritonavir, Darunavir DVT Prophylaxis -Mechanical only, hold chemical AC due to low platelet count FEN -Fluids: none -Electrolytes: Phos elevated, recheck in AM, BMP in AM -Nutrition: Regular Diet Disposition Med/Surg Visit type - Emergency Visit Emergency Visit: Yes ED Registration Date: 11/05/17 Care time: The patient presented to the Emergency Department on the above date and was hospitalized for further evaluation of their emergent condition. - New Patient This patient is new to me today: No - Critical Care Critical Care patient: No
--- NOTE | 2017-11-07 17:41 | PN ---
Progress Note, Physician History of Present Illness: Pt seen and examined at bedside. He is awake and alert. He denies shortness of breath at the moment. - Current Medication List Current Medications: Active Medications Acetaminophen (Tylenol -) 650 mg PO Q6H PRN PRN Reason: FEVER Last Admin: 11/06/17 22:19 Dose: 650 mg Allopurinol (Zyloprim -) 100 mg PO DAILY [facility] Last Admin: 11/07/17 11:32 Dose: 100 mg Carvedilol (Coreg -) 6.25 mg PO BID [facility] Last Admin: 11/07/17 11:31 Dose: 6.25 mg Darunavir (Prezista -) 600 mg PO BID [facility] Last Admin: 11/07/17 11:33 Dose: 600 mg Finasteride (Proscar -) 5 mg PO DAILY [facility] Last Admin: 11/07/17 11:32 Dose: 5 mg Hydralazine HCl (Apresoline -) 25 mg PO BID [facility] Last Admin: 11/07/17 11:32 Dose: 25 mg Piperacillin Sod/Tazobactam (Sod 2.25 gm/ Dextrose) 50 mls @ 100 mls/hr IVPB Q8H-IV [facility]; Protocol Last Admin: 11/07/17 11:32 Dose: 100 mls/hr Insulin Aspart (Novolog Vial Sliding Scale -) 1 vial SQ BIDAC [facility]; Protocol Last Admin: 11/07/17 06:50 Dose: Not Given Nifedipine (Procardia Xl -) 60 mg PO DAILY [facility] Last Admin: 11/07/17 11:31 Dose: 60 mg Raltegravir (Isentress -) 400 mg PO BID [facility] Last Admin: 11/07/17 11:33 Dose: 400 mg Ranitidine HCl (Zantac -) 150 mg PO DAILY [facility] Last Admin: 11/07/17 11:31 Dose: 150 mg Ritonavir (Norvir -) 100 mg PO BID [facility] Last Admin: 11/07/17 11:33 Dose: 100 mg Sodium Bicarbonate (Sodium Bicarbonate -) 650 mg PO BID [facility] Last Admin: 11/07/17 11:32 Dose: 650 mg Tamsulosin HCl (Flomax -) 0.4 mg PO BID@0830,2200 [facility] Last Admin: 11/07/17 08:30 Dose: 0.4 mg - Objective Vital Signs: Vital Signs Temperature 97.6 F 11/07/17 14:42 Pulse Rate 75 11/07/17 14:42 Respiratory Rate 20 11/07/17 14:42 Blood Pressure 115/55 L 11/07/17 14:42 O2 Sat by Pulse Oximetry (%) 99 11/07/17 09:00 Constitutional: Yes: Calm Eyes: Yes: Conjunctiva Clear HENT: Yes: Atraumatic Neck: Yes: Supple Cardiovascular: Yes: S1, S2 Respiratory: Yes: CTA Bilaterally Gastrointestinal: Yes: Distention Genitourinary: Yes: Lara Present Musculoskeletal: Yes: WNL Edema: Yes Neurological: Yes: Oriented Psychiatric: Yes: Oriented Labs: CBC, BMP 11/07/17 06:20 11/07/17 06:20 INR, PTT INR 1.17 (0.83-1.09) H 11/05/17 00:30 Problem List - Problems (1) CKD (chronic kidney disease) Code(s): N18.9 - CHRONIC KIDNEY DISEASE, UNSPECIFIED (2) CLL (chronic lymphocytic leukemia) Code(s): C91.90 - LYMPHOID LEUKEMIA, UNSPECIFIED NOT HAVING ACHIEVED REMISSION (3) Human immunodeficiency virus (HIV) seropositivity Code(s): Z21 - ASYMPTOMATIC HUMAN IMMUNODEFICIENCY VIRUS INFECTION STATUS (4) Sepsis Code(s): A41.9 - SEPSIS, UNSPECIFIED ORGANISM Qualifiers: Sepsis type: sepsis due to unspecified organism Qualified Code(s): A41.9 - Sepsis, unspecified organism (5) Chronic hepatitis C Code(s): B18.2 - CHRONIC VIRAL HEPATITIS C Assessment/Plan Current Medications Generic Name Dose Route Start Last Admin Trade Name Freq PRN Reason Stop Dose Admin Acetaminophen 650 mg 11/05/17 04:54 11/06/17 22:19 Tylenol - PO 650 mg Q6H PRN Administration FEVER Allopurinol 100 mg 11/05/17 10:00 11/07/17 11:32 Zyloprim - PO 100 mg DAILY [facility] Administration Carvedilol 6.25 mg 11/05/17 10:00 11/07/17 11:31 Coreg - PO 6.25 mg BID [facility] Administration Darunavir 600 mg 11/05/17 10:00 11/07/17 11:33 Prezista - PO 600 mg BID [facility] Administration Finasteride 5 mg 11/05/17 10:00 11/07/17 11:32 Proscar - PO 5 mg DAILY [facility] Administration Hydralazine HCl 25 mg 11/05/17 10:00 11/07/17 11:32 Apresoline - PO 25 mg BID [facility] Administration Piperacillin Sod/Tazobactam 50 mls @ 100 mls/hr 11/05/17 18:00 11/07/17 11:32 Sod 2.25 gm/ Dextrose IVPB 100 mls/hr Q8H-IV [facility] Administration Protocol Insulin Aspart 1 vial 11/05/17 07:00 11/07/17 06:50 Novolog Vial Sliding Scale - SQ Not Given BIDAC [facility] Protocol Nifedipine 60 mg 11/05/17 10:00 11/07/17 11:31 Procardia Xl - PO 60 mg DAILY [facility] Administration Raltegravir 400 mg 11/05/17 10:00 11/07/17 11:33 Isentress - PO 400 mg BID [facility] Administration Ranitidine HCl 150 mg 11/05/17 10:00 11/07/17 11:31 Zantac - PO 150 mg DAILY [facility] Administration Ritonavir 100 mg 11/05/17 10:00 11/07/17 11:33 Norvir - PO 100 mg BID [facility] Administration Sodium Bicarbonate 650 mg 11/05/17 10:00 11/07/17 11:32 Sodium Bicarbonate - PO 650 mg BID [facility] Administration Tamsulosin HCl 0.4 mg 11/05/17 08:30 11/07/17 08:30 Flomax - PO 0.4 mg BID@0830,2200 [facility] Administration Impression 1. CKD 2. urinary retention 3. HIV 4. liver cirrhosis 5. Hep C 6. nephrolothiasis 7. DM 8. BPH 9. HTN 10. CLL 11. anemia Plan - will observe off of fluids, may need to diurese - increase bicarb - hold fluids - renal function is worsening - repeat labs in am - check ua, lytes, and eos - maintain diana Wells
[2017-11-07] MEDS: ACETAMINOPHEN 325 MG TABLET (FP) PO PRN (20:46)
[2017-11-08] MEDS ORDERED: PIPERACILLIN/TAZOBACTAM 2.25 GM VIAL IVPB ONE ×3 (01:09→17:25)
[2017-11-08] MEDS ORDERED: DEXTROSE 5%-WATER - 50 ML IVPB ONE ×3 (01:09→17:25)
[2017-11-08] MEDS: PIPERACILLIN/TAZOB 2.25 GM 2.25 GM in DEXTROSE 5%-WATER - 50 ML IVPB SCH ×3 (01:23→17:44)
[2017-11-08] MEDS: SODIUM BICARBONATE 650 MG TABLET PO SCH ×3 (06:18→21:48)
[2017-11-08] MEDS: INSULIN SLIDING SCALE (NOVOLOG) 1 VIAL SQ SCH ×2 (06:19→16:26)
[2017-11-08 07:11] LABS: HEMATOCRIT 23.9 % (35.4-49); HEMOGLOBIN 7.8 GM/dL (11.7-16.9); MCH 28.5 pg (25.7-33.7); MCHC 32.6 g/dl (32.0-35.9); MEAN CELL VOLUME 87.3 fl (80-96); MEAN PLT VOLUME 8.5 fl (7.5-11.1); PLATELET COUNT 48 K/MM3 (134-434); RBC 2.74 M/mm3 (4.00-5.60); RDW 17.5 % (11.9-15.9); WHITE BLOOD COUNT 12.6 K/mm3 (4.0-10.0)
[2017-11-08 07:34] LABS: ALBUMIN 2.9 g/dl (3.4-5.0); ALK PHOS 58 U/L (45-117); ANION GAP 11 MMOL/L (8-16); BILIRUBIN,TOTAL 0.3 mg/dL (0.2-1); BLOOD UREA NITROGEN 100 mg/dL (7-18); CALCIUM 7.5 mg/dL (8.5-10.1); CHLORIDE 114 mmol/L (98-107); CO2 16 mmol/L (21-32); CREATININE 5.3 mg/dL (0.55-1.3); GLUCOSE,RANDOM 102 mg/dL (74-106); POTASSIUM 4.3 mmol/L (3.5-5.1); SGOT/AST 12 U/L (15-37); SGPT/ALT 17 U/L (13-61); SODIUM 141 mmol/L (136-145); TOT PROT 5.4 g/dl (6.4-8.2)
--- NOTE | 2017-11-08 08:27 | PN ---
Teaching Attending Note Name of Resident: Heath Varela ATTENDING PHYSICIAN STATEMENT I saw and evaluated the patient. I reviewed the resident's note and discussed the case with the resident. I agree with the resident's findings and plan as documented with exceptions below. SUBJECTIVE: Patient seen and examined. urinating well, non bloody non dark BM multiple overnight, feels better. no new dyspnea, abdominal pain or urinary symptoms. OBJECTIVE: Vital Signs Period Temp Pulse Resp BP Sys/Ventura Pulse Ox Last 24 Hr 97.6 F-98.8 F 63-75 19-20 109-140/50-66 99-99 Intake & Output 11/05/17 11/06/17 11/07/17 11/08/17 23:59 23:59 23:59 23:59 Intake Total 500 1915 2150 50 Output Total 1700 1300 600 Balance 500 215 850 -550 Weight 168 lb General: sitting in bed in no acute distress Chest:few right basilar rales Abdomen: softer today, improved distension, non tender throughout, No CVA or suprapubic tenderness Extremities: 1-2+ pedal pitting edema Active Medications Acetaminophen (Tylenol -) 650 mg PO Q6H PRN PRN Reason: FEVER Last Admin: 11/07/17 20:46 Dose: 650 mg Allopurinol (Zyloprim -) 100 mg PO DAILY [facility] Last Admin: 11/07/17 11:32 Dose: 100 mg Carvedilol (Coreg -) 6.25 mg PO BID [facility] Last Admin: 11/07/17 22:32 Dose: 6.25 mg Darunavir (Prezista -) 600 mg PO BID [facility] Last Admin: 11/07/17 22:33 Dose: 600 mg Finasteride (Proscar -) 5 mg PO DAILY [facility] Last Admin: 11/07/17 11:32 Dose: 5 mg Hydralazine HCl (Apresoline -) 25 mg PO BID [facility] Last Admin: 11/07/17 22:32 Dose: 25 mg Piperacillin Sod/Tazobactam (Sod 2.25 gm/ Dextrose) 50 mls @ 100 mls/hr IVPB Q8H-IV [facility]; Protocol Last Admin: 11/08/17 01:23 Dose: 100 mls/hr Insulin Aspart (Novolog Vial Sliding Scale -) 1 vial SQ BIDAC [facility]; Protocol Last Admin: 11/08/17 06:19 Dose: Not Given Nifedipine (Procardia Xl -) 60 mg PO DAILY [facility] Last Admin: 11/07/17 11:31 Dose: 60 mg Raltegravir (Isentress -) 400 mg PO BID [facility] Last Admin: 11/07/17 22:33 Dose: 400 mg Ranitidine HCl (Zantac -) 150 mg PO 1900 [facility] Last Admin: 11/07/17 18:14 Dose: 150 mg Ritonavir (Norvir -) 100 mg PO BID [facility] Last Admin: 11/07/17 22:33 Dose: 100 mg Sodium Bicarbonate (Sodium Bicarbonate -) 650 mg PO TID [facility] Last Admin: 11/08/17 06:18 Dose: 650 mg Tamsulosin HCl (Flomax -) 0.4 mg PO BID@0830,2200 [facility] Last Admin: 11/07/17 22:32 Dose: 0.4 mg Laboratory Results - last 24 hr 11/07/17 11/07/17 11/07/17 06:20 12:38 18:01 WBC RBC Hgb Hct MCV MCH MCHC RDW Plt Count MPV Total Counted 100 Neutrophils % (Manual) 4.0 L Lymphocytes % (Manual) 95.0 H* Monocytes % (Manual) 1 L Sodium Potassium Chloride Carbon Dioxide Anion Gap BUN Creatinine Creat Clearance w eGFR POC Glucometer 121 162 Random Glucose Calcium Total Bilirubin AST ALT Alkaline Phosphatase Total Protein Albumin 11/08/17 11/08/17 11/08/17 06:17 06:25 06:25 WBC 12.6 H RBC 2.74 L Hgb 7.8 L Hct 23.9 L MCV 87.3 MCH 28.5 MCHC 32.6 RDW 17.5 H Plt Count 48 L MPV 8.5 Total Counted Neutrophils % (Manual) Lymphocytes % (Manual) Monocytes % (Manual) Sodium 141 Potassium 4.3 Chloride 114 H Carbon Dioxide 16 L Anion Gap 11 BUN 100 H Creatinine 5.3 H Creat Clearance w eGFR 10.94 POC Glucometer 112 Random Glucose 102 Calcium 7.5 L Total Bilirubin 0.3 AST 12 L ALT 17 Alkaline Phosphatase 58 Total Protein 5.4 L Albumin 2.9 L Abdominal US results noted Microbiology 11/04/17 23:42 Urine - Urine Clean Catch Urine Culture - Final Pseudomonas Aeruginosa Pseudomonas Aeruginosa#2 11/04/17 00:30 Blood - Peripheral Venous Blood Culture - Preliminary NO GROWTH OBTAINED AFTER 72 HOURS, INCUBATION TO CONTINUE FOR 2 DAYS. 11/04/17 00:30 Blood - Peripheral Venous Blood Culture - Preliminary NO GROWTH OBTAINED AFTER 72 HOURS, INCUBATION TO CONTINUE FOR 2 DAYS. ASSESSMENT AND PLAN: 67 yom with PMHx of CLL (s/p treatment 2 years ago, recent WBC 50s, being monitored), CKD stage IV (baseline Cr 2.2 in 06/2017), HIV on HAART (last viral load undetectable with CD4 >2000 in ), HCV s/p treatment, cirrhosis with portal hypertension, prior IV Heroine/cocaine use, exsmoker, HTN, Prior NICM last EF 65% in 2015, Cath x 2 with normal coronaries, NIDDM, chronic leg edema, admitted to [facility] in 08/2017 with RICHY/Anemia/possible acute diverticulitis/ abnormal EKG, comes with sepsis and RICHY. -Sepsis, likely secondary to left pyelonephritis -Complicated pseudomonas UTI -Chronic urinary retention, ?etiology -RICHY on CKD stage IV (baseline cr 2.2 in 06/2017, 3.6 on recent d/c on 09/21/2017) -Acute on chronic anemia, suspect multifactorial, from CKD/cirrhosis, cannot r/ o intermittent occult bleed -HIV on HAART -HCV s/p treatment -Cirrhosis with portal hypertension -Acute on chronic thrombocytopenia, suspect from cirrhosis/portal hypertension compounded by sepsis/hydration -Prior NICM, recent stress test in 09/2017 -NIDDM -Chronic leg edema -Recent ?mild acute diverticulitis Plan: Cr continues to rise. Discussed with Dr. Wells, trial with IVF. Monitor volume status closely. Follow up urine eosinophils. Urine cx noted, pansensitive pseudomonas [address] Cooley, follow up for taper. Zosyn day 5. WBc improved, afebriled. Continue ortiz, Strict I/os, flomax and urology input. Off IVF, s/p 1 unit PRBC, with appropriate response. Abdominal US neg for ascitis. Hold ARB. Renal dosing of meds, avoid nephrotoxins. No gross evidence of bleed, trend H/h. Continue HAART. Continue coreg/nifedipine/hydralazine. DVTPPX with SCDs given thrombocytopenia Dispo pending clinical improvement. Plan discussed with patient in detail, all questions answered.
[2017-11-08] MEDS: TAMSULOSIN HCL 0.4 MG CAP PO SCH ×2 (08:55→21:48)
[2017-11-08] MEDS: NIFEdipine E.R 60 MG TABLET (UD) PO SCH (09:19)
[2017-11-08] MEDS: FINASTERIDE 5 MG TABLET (FP) PO SCH (09:20)
[2017-11-08] MEDS: ALLOPURINOL 100 MG TABLET (FP) PO SCH (09:20)
[2017-11-08] MEDS: hydrALAZINE HCL 25 MG TABLET (FP) PO SCH ×2 (09:20→21:48)
[2017-11-08] MEDS: CARVEDILOL 6.25 MG TABLET (FP) PO SCH ×2 (09:20→21:48)
[2017-11-08] MEDS: RITONAVIR 100 MG TABLET PO SCH ×2 (09:22→21:49)
[2017-11-08] MEDS: RILPIVIRINE HCL 25 MG TABLET PO SCH (09:22)
[2017-11-08] MEDS: DARUNAVIR ETHANOLATE 600 MG TAB PO SCH ×2 (09:23→21:49)
[2017-11-08] MEDS: RALTEGRAVIR POTASSIUM 400 MG TAB PO SCH ×2 (09:23→21:49)
--- NOTE | 2017-11-08 09:24 | PN ---
Physical Exam: SUBJECTIVE: Patient seen and examined this AM. He says his flank pain has resolved. He also states he had a normal bowel movement this morning as well. He has no complaints and is sitting up in bed eating breakfast. OBJECTIVE: Vital Signs Period Temp Pulse Resp BP Sys/Ventura Pulse Ox Last 24 Hr 97.6 F-98.8 F 63-75 19-20 109-140/50-66 99 GENERAL: A&O, no acute distress HEAD: Normocephalic, atraumatic. EYES: PERRL, no scleral icterus EARS, NOSE, THROAT: oropharynx clear without exudates. Moist mucous membranes. NECK: supple without lymphadenopathy LUNGS: CTA b/l, no crackles or wheezes HEART: Regular rate and rhythm, normal S1 and S2 with systolic murmur ABDOMEN: Soft, obese, nontender to palpation, though he states pain comes and goes, normoactive bowel sounds MUSCULOSKELETAL: No bony deformities or tenderness, Minimal to mild CVA Tenderness no the left EXTREMITIES: 2+ pulses, warm, well-perfused. No peripheral edema. : Ortiz in place, draining, though decreased amount. NEUROLOGICAL: Cranial nerves II-XII grossly intact. Normal speech. PSYCHIATRIC: Cooperative. Good eye contact. Appropriate mood and affect. Laboratory Results - last 24 hr 11/07/17 11/07/17 11/07/17 06:20 12:38 18:01 WBC RBC Hgb Hct MCV MCH MCHC RDW Plt Count MPV Total Counted 100 Neutrophils % (Manual) 4.0 L Lymphocytes % (Manual) 95.0 H* Monocytes % (Manual) 1 L Sodium Potassium Chloride Carbon Dioxide Anion Gap BUN Creatinine Creat Clearance w eGFR POC Glucometer 121 162 Random Glucose Calcium Total Bilirubin AST ALT Alkaline Phosphatase Total Protein Albumin 11/08/17 11/08/17 11/08/17 06:17 06:25 06:25 WBC 12.6 H RBC 2.74 L Hgb 7.8 L Hct 23.9 L MCV 87.3 MCH 28.5 MCHC 32.6 RDW 17.5 H Plt Count 48 L MPV 8.5 Total Counted Neutrophils % (Manual) Lymphocytes % (Manual) Monocytes % (Manual) Sodium 141 Potassium 4.3 Chloride 114 H Carbon Dioxide 16 L Anion Gap 11 BUN 100 H Creatinine 5.3 H Creat Clearance w eGFR 10.94 POC Glucometer 112 Random Glucose 102 Calcium 7.5 L Total Bilirubin 0.3 AST 12 L ALT 17 Alkaline Phosphatase 58 Total Protein 5.4 L Albumin 2.9 L Active Medications Generic Name Dose Route Start Last Admin Trade Name Nicolasa PRN Reason Stop Dose Admin Acetaminophen 650 mg 11/05/17 04:54 11/07/17 20:46 Tylenol - PO 650 mg Q6H PRN Administration FEVER Allopurinol 100 mg 11/05/17 10:00 11/07/17 11:32 Zyloprim - PO 100 mg DAILY [facility] Administration Carvedilol 6.25 mg 11/05/17 10:00 11/07/17 22:32 Coreg - PO 6.25 mg BID [facility] Administration Darunavir 600 mg 11/05/17 10:00 11/07/17 22:33 Prezista - PO 600 mg BID [facility] Administration Finasteride 5 mg 11/05/17 10:00 11/07/17 11:32 Proscar - PO 5 mg DAILY [facility] Administration Hydralazine HCl 25 mg 11/05/17 10:00 11/07/17 22:32 Apresoline - PO 25 mg BID [facility] Administration Piperacillin Sod/Tazobactam 50 mls @ 100 mls/hr 11/05/17 18:00 11/08/17 01:23 Sod 2.25 gm/ Dextrose IVPB 100 mls/hr Q8H-IV [facility] Administration Protocol Insulin Aspart 1 vial 11/05/17 07:00 11/08/17 06:19 Novolog Vial Sliding Scale - SQ Not Given BIDAC [facility] Protocol Nifedipine 60 mg 11/05/17 10:00 11/07/17 11:31 Procardia Xl - PO 60 mg DAILY [facility] Administration Raltegravir 400 mg 11/05/17 10:00 11/07/17 22:33 Isentress - PO 400 mg BID [facility] Administration Ranitidine HCl 150 mg 11/07/17 19:00 11/07/17 18:14 Zantac - PO 150 mg 1900 [facility] Administration Ritonavir 100 mg 11/05/17 10:00 11/07/17 22:33 Norvir - PO 100 mg BID [facility] Administration Sodium Bicarbonate 650 mg 11/07/17 22:00 11/08/17 06:18 Sodium Bicarbonate - PO 650 mg TID [facility] Administration Tamsulosin HCl 0.4 mg 11/05/17 08:30 11/08/17 08:55 Flomax - PO 0.4 mg BID@0830,2200 [facility] Administration ASSESSMENT/PLAN: 67 yo male with a significant past medical history of HIV, CLL, BPH, DM, Gout, HTN admitted with fever, chills and malaise Sepsis Secondary to Pylonephritis -Febrile (102.6) Tachycardic -Leukocytosis improving, elevation likely baseline with CLL -UA noted, Cultures positive for Pseudomonas -CT Abd/Pelvis noted - 6mm calcification in left renal pole, Perinephric stranding -Given Vanc/Zosyn/Ceftriaxone in ED -ID consulted - Zosyn 2.25 gm Q8 BPH -Mild prostatic enlargement noted on CT A/P -Pt with recent ortiz removal via urology on 11/02/17 which was originally placed for urinary retention -Pt noted to be retaining overnight requiring insertion of a Ortiz -Pts urologist is at [facility] and does not come here, Urology consult placed for recommendations for current management Acute on Chronic Kidney Disease -Likely postobstructive secondary to urinary retention and renal calculus -Ortiz placed with relief of urinary retention -Worsening renal function still -Nephrology consult appreciated -Bicarb -1/2 NS @ 75 cc/hr CLL with Leukocytosis and Thrombocytopenia -Stable, will monitor platelet count -Diffuse lymphadenopathy noted on CT Abd/Pelv DM -Hold home meds -BGMs ACHS -Insulin sliding scale for glycemic control Gout -No acute flareup at this time -Continue maintenance Allopurinol 100 mg PO Daily HTN -Hydralazine 25 mg PO BID -Coreg 6.25 mg PO BID -Procardia 60 mg PO Daily -Hold lasix for now -Blood pressures stable, will continue to monitor HIV -CD4 pending -Raltegravir, Ritonavir, Darunavir DVT Prophylaxis -Mechanical only, hold chemical AC due to low platelet count FEN -Fluids: 1/2 NS @ 75 cc/hr -Electrolytes: BMP in AM -Nutrition: Sodium controlled diet Disposition Med/Surg Visit type - Emergency Visit Emergency Visit: Yes ED Registration Date: 11/05/17 Care time: The patient presented to the Emergency Department on the above date and was hospitalized for further evaluation of their emergent condition. - New Patient This patient is new to me today: No - Critical Care Critical Care patient: No
[2017-11-08 09:51] LABS: URINE UREA NITROGEN 549 MG/DL (350-1000)
[2017-11-08] MEDS: ACETAMINOPHEN 325 MG TABLET (FP) PO PRN ×2 (13:43→22:14)
--- NOTE | 2017-11-08 14:37 | PN ---
Progress Note, Physician History of Present Illness: Pt seen and examined at bedside. He denies shortness of breath. He denies fevers or chills. - Current Medication List Current Medications: Active Medications Acetaminophen (Tylenol -) 650 mg PO Q6H PRN PRN Reason: FEVER Last Admin: 11/08/17 13:43 Dose: 650 mg Allopurinol (Zyloprim -) 100 mg PO DAILY [facility] Last Admin: 11/08/17 09:20 Dose: 100 mg Carvedilol (Coreg -) 6.25 mg PO BID [facility] Last Admin: 11/08/17 09:20 Dose: 6.25 mg Darunavir (Prezista -) 600 mg PO BID [facility] Last Admin: 11/08/17 09:23 Dose: 600 mg Finasteride (Proscar -) 5 mg PO DAILY [facility] Last Admin: 11/08/17 09:20 Dose: 5 mg Hydralazine HCl (Apresoline -) 25 mg PO BID [facility] Last Admin: 11/08/17 09:20 Dose: 25 mg Piperacillin Sod/Tazobactam (Sod 2.25 gm/ Dextrose) 50 mls @ 100 mls/hr IVPB Q8H-IV [facility]; Protocol Last Admin: 11/08/17 09:21 Dose: 100 mls/hr Insulin Aspart (Novolog Vial Sliding Scale -) 1 vial SQ BIDAC [facility]; Protocol Last Admin: 11/08/17 06:19 Dose: Not Given Nifedipine (Procardia Xl -) 60 mg PO DAILY [facility] Last Admin: 11/08/17 09:19 Dose: 60 mg Raltegravir (Isentress -) 400 mg PO BID [facility] Last Admin: 11/08/17 09:23 Dose: 400 mg Ranitidine HCl (Zantac -) 150 mg PO 1900 [facility] Last Admin: 11/07/17 18:14 Dose: 150 mg Ritonavir (Norvir -) 100 mg PO BID [facility] Last Admin: 11/08/17 09:22 Dose: 100 mg Sodium Bicarbonate (Sodium Bicarbonate -) 650 mg PO TID [facility] Last Admin: 11/08/17 13:43 Dose: 650 mg Tamsulosin HCl (Flomax -) 0.4 mg PO BID@0830,2200 [facility] Last Admin: 11/08/17 08:55 Dose: 0.4 mg - Objective Vital Signs: Vital Signs Temperature 97.9 F 11/08/17 14:18 Pulse Rate 67 11/08/17 14:18 Respiratory Rate 18 11/08/17 14:18 Blood Pressure 129/63 11/08/17 14:18 O2 Sat by Pulse Oximetry (%) 94 L 11/08/17 09:00 Constitutional: Yes: Calm Eyes: Yes: Conjunctiva Clear HENT: Yes: Atraumatic Neck: Yes: Supple Cardiovascular: Yes: S1, S2 Respiratory: Yes: CTA Bilaterally Gastrointestinal: Yes: Normal Bowel Sounds, Soft, Abdomen, Obese Genitourinary: Yes: Lara Present Musculoskeletal: Yes: WNL Edema: Yes Edema: LLE: 1+, RLE: 1+ Neurological: Yes: Oriented Psychiatric: Yes: Oriented Labs: CBC, BMP 11/08/17 06:25 11/08/17 06:25 INR, PTT INR 1.17 (0.83-1.09) H 11/05/17 00:30 Problem List - Problems (1) CKD (chronic kidney disease) Code(s): N18.9 - CHRONIC KIDNEY DISEASE, UNSPECIFIED (2) CLL (chronic lymphocytic leukemia) Code(s): C91.90 - LYMPHOID LEUKEMIA, UNSPECIFIED NOT HAVING ACHIEVED REMISSION (3) Human immunodeficiency virus (HIV) seropositivity Code(s): Z21 - ASYMPTOMATIC HUMAN IMMUNODEFICIENCY VIRUS INFECTION STATUS (4) Sepsis Code(s): A41.9 - SEPSIS, UNSPECIFIED ORGANISM Qualifiers: Sepsis type: sepsis due to unspecified organism Qualified Code(s): A41.9 - Sepsis, unspecified organism (5) Chronic hepatitis C Code(s): B18.2 - CHRONIC VIRAL HEPATITIS C Assessment/Plan Current Medications Generic Name Dose Route Start Last Admin Trade Name Freq PRN Reason Stop Dose Admin Acetaminophen 650 mg 11/05/17 04:54 11/08/17 13:43 Tylenol - PO 650 mg Q6H PRN Administration FEVER Allopurinol 100 mg 11/05/17 10:00 11/08/17 09:20 Zyloprim - PO 100 mg DAILY [facility] Administration Carvedilol 6.25 mg 11/05/17 10:00 11/08/17 09:20 Coreg - PO 6.25 mg BID [facility] Administration Darunavir 600 mg 11/05/17 10:00 11/08/17 09:23 Prezista - PO 600 mg BID [facility] Administration Finasteride 5 mg 11/05/17 10:00 11/08/17 09:20 Proscar - PO 5 mg DAILY [facility] Administration Hydralazine HCl 25 mg 11/05/17 10:00 11/08/17 09:20 Apresoline - PO 25 mg BID [facility] Administration Piperacillin Sod/Tazobactam 50 mls @ 100 mls/hr 11/05/17 18:00 11/08/17 09:21 Sod 2.25 gm/ Dextrose IVPB 100 mls/hr Q8H-IV [facility] Administration Protocol Insulin Aspart 1 vial 11/05/17 07:00 11/08/17 06:19 Novolog Vial Sliding Scale - SQ Not Given BIDAC [facility] Protocol Nifedipine 60 mg 11/05/17 10:00 11/08/17 09:19 Procardia Xl - PO 60 mg DAILY [facility] Administration Raltegravir 400 mg 11/05/17 10:00 11/08/17 09:23 Isentress - PO 400 mg BID [facility] Administration Ranitidine HCl 150 mg 11/07/17 19:00 11/07/17 18:14 Zantac - PO 150 mg 1900 [facility] Administration Ritonavir 100 mg 11/05/17 10:00 11/08/17 09:22 Norvir - PO 100 mg BID [facility] Administration Sodium Bicarbonate 650 mg 11/07/17 22:00 11/08/17 13:43 Sodium Bicarbonate - PO 650 mg TID [facility] Administration Tamsulosin HCl 0.4 mg 11/05/17 08:30 11/08/17 08:55 Flomax - PO 0.4 mg BID@0830,2200 [facility] Administration Laboratory Tests 11/07/17 12:55 Urine Eosinophils Pending Impression 1. CKD 2. urinary retention 3. HIV 4. liver cirrhosis 5. Hep C 6. nephrolothiasis 7. DM 8. BPH 9. HTN 10. CLL 11. anemia Plan - renal function is worsening - will give a fluid trial and monitor - cont PO bicarb - urine sodium is low - discussed with medical team - kiki Wells
[2017-11-08] MEDS ORDERED: SODIUM CHLORIDE 0.45% 1,000 ML IV SCH (14:45)
--- NOTE | 2017-11-08 15:22 | PN ---
Progress Note, Physician History of Present Illness: Feeling better No c/o flank pain Lara catheter in place Temps down Afebrile WBC down (in setting of CLL) - Current Medication List Current Medications: Active Medications Acetaminophen (Tylenol -) 650 mg PO Q6H PRN PRN Reason: FEVER Last Admin: 11/08/17 13:43 Dose: 650 mg Allopurinol (Zyloprim -) 100 mg PO DAILY [facility] Last Admin: 11/08/17 09:20 Dose: 100 mg Carvedilol (Coreg -) 6.25 mg PO BID [facility] Last Admin: 11/08/17 09:20 Dose: 6.25 mg Darunavir (Prezista -) 600 mg PO BID [facility] Last Admin: 11/08/17 09:23 Dose: 600 mg Finasteride (Proscar -) 5 mg PO DAILY [facility] Last Admin: 11/08/17 09:20 Dose: 5 mg Hydralazine HCl (Apresoline -) 25 mg PO BID [facility] Last Admin: 11/08/17 09:20 Dose: 25 mg Piperacillin Sod/Tazobactam (Sod 2.25 gm/ Dextrose) 50 mls @ 100 mls/hr IVPB Q8H-IV [facility]; Protocol Last Admin: 11/08/17 09:21 Dose: 100 mls/hr Sodium Chloride (1/2 Normal Saline) 1,000 mls @ 75 mls/hr IV ASDIR [facility] Stop: 11/09/17 02:44 Insulin Aspart (Novolog Vial Sliding Scale -) 1 vial SQ BIDAC [facility]; Protocol Last Admin: 11/08/17 06:19 Dose: Not Given Nifedipine (Procardia Xl -) 60 mg PO DAILY [facility] Last Admin: 11/08/17 09:19 Dose: 60 mg Raltegravir (Isentress -) 400 mg PO BID [facility] Last Admin: 11/08/17 09:23 Dose: 400 mg Ranitidine HCl (Zantac -) 150 mg PO 1900 [facility] Last Admin: 11/07/17 18:14 Dose: 150 mg Ritonavir (Norvir -) 100 mg PO BID [facility] Last Admin: 11/08/17 09:22 Dose: 100 mg Sodium Bicarbonate (Sodium Bicarbonate -) 650 mg PO TID [facility] Last Admin: 11/08/17 13:43 Dose: 650 mg Tamsulosin HCl (Flomax -) 0.4 mg PO BID@0830,2200 [facility] Last Admin: 11/08/17 08:55 Dose: 0.4 mg - Objective Vital Signs: Vital Signs Temperature 97.9 F 11/08/17 14:18 Pulse Rate 67 11/08/17 14:18 Respiratory Rate 18 11/08/17 14:18 Blood Pressure 129/63 11/08/17 14:18 O2 Sat by Pulse Oximetry (%) 94 L 11/08/17 09:00 Constitutional: Yes: No Distress Eyes: Yes: Conjunctiva Clear Cardiovascular: Yes: Regular Rate and Rhythm, S1, S2 Respiratory: Yes: CTA Bilaterally Gastrointestinal: Yes: Normal Bowel Sounds, Soft. No: Tenderness Edema: No Labs: CBC, BMP 11/08/17 06:25 11/08/17 06:25 INR, PTT INR 1.17 (0.83-1.09) H 11/05/17 00:30 Assessment/Plan Pyelonephritis clinically improved Urinary retention Renal failure CLL AIDS BC (-) Urine c/s Pseudomonas (s) zosyn Continue zosyn Oral quinolone not an option with prolonged QT
[2017-11-08] MEDS ORDERED: PT OWN MED DRAWER 7, Y5N ONE (18:21)
[2017-11-08] MEDS: RANITIDINE HCL 150 MG TABLET (FP) PO SCH ×2 (19:04→21:48)
[2017-11-09] MEDS ORDERED: DEXTROSE 5%-WATER - 50 ML IVPB ONE ×3 (01:11→17:27)
[2017-11-09] MEDS ORDERED: PIPERACILLIN/TAZOBACTAM 2.25 GM VIAL IVPB ONE ×3 (01:11→17:26)
[2017-11-09] MEDS: PIPERACILLIN/TAZOB 2.25 GM 2.25 GM in DEXTROSE 5%-WATER - 50 ML IVPB SCH ×3 (02:29→17:38)
[2017-11-09] MEDS: SODIUM BICARBONATE 650 MG TABLET PO SCH ×3 (06:39→21:18)
[2017-11-09] MEDS: INSULIN SLIDING SCALE (NOVOLOG) 1 VIAL SQ SCH ×2 (06:39→16:55)
[2017-11-09 07:57] LABS: ANION GAP 10 MMOL/L (8-16); BLOOD UREA NITROGEN 100 mg/dL (7-18); CALCIUM 7.4 mg/dL (8.5-10.1); CHLORIDE 116 mmol/L (98-107); CO2 15 mmol/L (21-32); CREATININE 5.3 mg/dL (0.55-1.3); GLUCOSE,RANDOM 91 mg/dL (74-106); POTASSIUM 4.3 mmol/L (3.5-5.1); SODIUM 141 mmol/L (136-145)
[2017-11-09] MEDS: TAMSULOSIN HCL 0.4 MG CAP PO SCH ×2 (09:17→21:18)
[2017-11-09] MEDS: ALLOPURINOL 100 MG TABLET (FP) PO SCH (11:11)
[2017-11-09] MEDS: CARVEDILOL 6.25 MG TABLET (FP) PO SCH ×2 (11:11→21:18)
[2017-11-09] MEDS: NIFEdipine E.R 60 MG TABLET (UD) PO SCH (11:11)
[2017-11-09] MEDS: ACETAMINOPHEN 325 MG TABLET (FP) PO PRN ×2 (11:11→21:18)
[2017-11-09] MEDS: FINASTERIDE 5 MG TABLET (FP) PO SCH (11:11)
[2017-11-09] MEDS: DARUNAVIR ETHANOLATE 600 MG TAB PO SCH ×2 (11:14→21:19)
[2017-11-09] MEDS: RALTEGRAVIR POTASSIUM 400 MG TAB PO SCH ×2 (11:15→21:19)
[2017-11-09] MEDS: RILPIVIRINE HCL 25 MG TABLET PO SCH (11:15)
[2017-11-09] MEDS: RITONAVIR 100 MG TABLET PO SCH ×2 (11:16→21:20)
[2017-11-09] MEDS: hydrALAZINE HCL 25 MG TABLET (FP) PO SCH ×2 (11:20→21:18)
--- NOTE | 2017-11-09 12:45 | PN ---
Physical Exam: SUBJECTIVE: Patient seen and examined this AM. He currently has no complaints and says that he had a large bowel movement overnight. OBJECTIVE: Vital Signs Period Temp Pulse Resp BP Sys/Ventura Pulse Ox Last 24 Hr 97.9 F-98.5 F 64-71 18-20 112-131/45-91 97 GENERAL: A&O, no acute distress HEAD: Normocephalic, atraumatic. EYES: PERRL, no scleral icterus EARS, NOSE, THROAT: oropharynx clear without exudates. Moist mucous membranes. NECK: supple without lymphadenopathy LUNGS: CTA b/l, no crackles or wheezes HEART: Regular rate and rhythm, normal S1 and S2 with systolic murmur ABDOMEN: Soft, obese, nontender to palpation, normoactive bowel sounds MUSCULOSKELETAL: No bony deformities or tenderness, Minimal to mild CVA Tenderness no the left EXTREMITIES: 2+ pulses, warm, well-perfused. No peripheral edema. : Ortiz in place, draining, though decreased amount. NEUROLOGICAL: Cranial nerves II-XII grossly intact. Normal speech. PSYCHIATRIC: Cooperative. Good eye contact. Appropriate mood and affect. Laboratory Results - last 24 hr 11/08/17 11/08/17 11/09/17 06:25 16:08 06:30 Sodium 141 Potassium 4.3 Chloride 116 H Carbon Dioxide 15 L Anion Gap 10 BUN 100 H Creatinine 5.3 H Creat Clearance w eGFR 10.94 POC Glucometer 192 Random Glucose 91 Calcium 7.4 L Urine Creatinine 105.0 H 11/09/17 06:37 Sodium Potassium Chloride Carbon Dioxide Anion Gap BUN Creatinine Creat Clearance w eGFR POC Glucometer 98 Random Glucose Calcium Urine Creatinine Active Medications Generic Name Dose Route Start Last Admin Trade Name Freq PRN Reason Stop Dose Admin Acetaminophen 650 mg 11/05/17 04:54 11/09/17 11:11 Tylenol - PO 650 mg Q6H PRN Administration FEVER Allopurinol 100 mg 11/05/17 10:00 11/09/17 11:11 Zyloprim - PO 100 mg DAILY [facility] Administration Carvedilol 6.25 mg 11/05/17 10:00 11/09/17 11:11 Coreg - PO 6.25 mg BID [facility] Administration Darunavir 600 mg 11/05/17 10:00 11/09/17 11:14 Prezista - PO 600 mg BID [facility] Administration Finasteride 5 mg 11/05/17 10:00 11/09/17 11:11 Proscar - PO 5 mg DAILY [facility] Administration Hydralazine HCl 25 mg 11/05/17 10:00 11/09/17 11:20 Apresoline - PO 25 mg BID [facility] Administration Piperacillin Sod/Tazobactam 50 mls @ 100 mls/hr 11/05/17 18:00 11/09/17 11:10 Sod 2.25 gm/ Dextrose IVPB 100 mls/hr Q8H-IV [facility] Administration Protocol Insulin Aspart 1 vial 11/05/17 07:00 11/09/17 06:39 Novolog Vial Sliding Scale - SQ Not Given BIDAC [facility] Protocol Nifedipine 60 mg 11/05/17 10:00 11/09/17 11:11 Procardia Xl - PO 60 mg DAILY [facility] Administration Raltegravir 400 mg 11/05/17 10:00 11/09/17 11:15 Isentress - PO 400 mg BID [facility] Administration Ranitidine HCl 150 mg 11/07/17 19:00 11/08/17 21:48 Zantac - PO 150 mg 1900 [facility] Administration Ritonavir 100 mg 11/05/17 10:00 11/09/17 11:16 Norvir - PO 100 mg BID [facility] Administration Sodium Bicarbonate 650 mg 11/07/17 22:00 11/09/17 06:39 Sodium Bicarbonate - PO 650 mg TID [facility] Administration Tamsulosin HCl 0.4 mg 11/05/17 08:30 11/09/17 09:17 Flomax - PO 0.4 mg BID@0830,2200 [facility] Administration ASSESSMENT/PLAN: 67 yo male with a significant past medical history of HIV, CLL, BPH, DM, Gout, HTN admitted with fever, chills and malaise Sepsis Secondary to Pylonephritis -Febrile (102.6) Tachycardic -Leukocytosis improving, elevation likely baseline with CLL -UA noted, Cultures positive for Pseudomonas -CT Abd/Pelvis noted - 6mm calcification in left renal pole, Perinephric stranding -Given Vanc/Zosyn/Ceftriaxone in ED -ID consulted - Zosyn 2.25 gm Q8 BPH -Mild prostatic enlargement noted on CT A/P -Pt with recent ortiz removal via urology on 11/02/17 which was originally placed for urinary retention -Pt noted to be retaining overnight requiring insertion of a Ortiz -Pts urologist is at [facility] and does not come here, Urology consult placed for recommendations for current management Acute on Chronic Kidney Disease -Likely postobstructive secondary to urinary retention and renal calculus -Ortiz placed with relief of urinary retention -Worsening renal function still -Nephrology consult appreciated -Bicarb -1/2 NS @ 75 cc/hr CLL with Leukocytosis and Thrombocytopenia -Stable, will monitor platelet count -Diffuse lymphadenopathy noted on CT Abd/Pelv DM -Hold home meds -BGMs ACHS -Insulin sliding scale for glycemic control Gout -No acute flareup at this time -Continue maintenance Allopurinol 100 mg PO Daily HTN -Hydralazine 25 mg PO BID -Coreg 6.25 mg PO BID -Procardia 60 mg PO Daily -Hold lasix for now -Blood pressures stable, will continue to monitor HIV -CD4 pending -Raltegravir, Ritonavir, Darunavir DVT Prophylaxis -Mechanical only, hold chemical AC due to low platelet count FEN -Fluids: /2 NS @ 75 cc/hr -Electrolytes: BMP in AM -Nutrition: Sodium controlled diet Disposition Med/Surg Visit type - Emergency Visit Emergency Visit: Yes ED Registration Date: 11/05/17 Care time: The patient presented to the Emergency Department on the above date and was hospitalized for further evaluation of their emergent condition. - New Patient This patient is new to me today: No - Critical Care Critical Care patient: No
--- NOTE | 2017-11-09 14:44 | PN ---
Progress Note, Physician History of Present Illness: Pt seen and examined at bedside. He is awake and alert. He denies shortness of breath. He tolerated the fluids. - Current Medication List Current Medications: Active Medications Acetaminophen (Tylenol -) 650 mg PO Q6H PRN PRN Reason: FEVER Last Admin: 11/09/17 11:11 Dose: 650 mg Allopurinol (Zyloprim -) 100 mg PO DAILY [facility] Last Admin: 11/09/17 11:11 Dose: 100 mg Carvedilol (Coreg -) 6.25 mg PO BID [facility] Last Admin: 11/09/17 11:11 Dose: 6.25 mg Darunavir (Prezista -) 600 mg PO BID [facility] Last Admin: 11/09/17 11:14 Dose: 600 mg Finasteride (Proscar -) 5 mg PO DAILY [facility] Last Admin: 11/09/17 11:11 Dose: 5 mg Hydralazine HCl (Apresoline -) 25 mg PO BID [facility] Last Admin: 11/09/17 11:20 Dose: 25 mg Piperacillin Sod/Tazobactam (Sod 2.25 gm/ Dextrose) 50 mls @ 100 mls/hr IVPB Q8H-IV [facility]; Protocol Last Admin: 11/09/17 11:10 Dose: 100 mls/hr Insulin Aspart (Novolog Vial Sliding Scale -) 1 vial SQ BIDAC [facility]; Protocol Last Admin: 11/09/17 06:39 Dose: Not Given Nifedipine (Procardia Xl -) 60 mg PO DAILY [facility] Last Admin: 11/09/17 11:11 Dose: 60 mg Raltegravir (Isentress -) 400 mg PO BID [facility] Last Admin: 11/09/17 11:15 Dose: 400 mg Ranitidine HCl (Zantac -) 150 mg PO 1900 [facility] Last Admin: 11/08/17 21:48 Dose: 150 mg Ritonavir (Norvir -) 100 mg PO BID [facility] Last Admin: 11/09/17 11:16 Dose: 100 mg Sodium Bicarbonate (Sodium Bicarbonate -) 650 mg PO TID [facility] Last Admin: 11/09/17 14:24 Dose: 650 mg Tamsulosin HCl (Flomax -) 0.4 mg PO BID@0830,2200 [facility] Last Admin: 11/09/17 09:17 Dose: 0.4 mg - Objective Vital Signs: Vital Signs Temperature 98.4 F 09/28/18 09:15 Pulse Rate 69 11/09/17 09:15 Respiratory Rate 20 11/09/17 09:15 Blood Pressure 124/91 11/09/17 09:15 O2 Sat by Pulse Oximetry (%) 97 11/08/17 21:00 Constitutional: Yes: Calm Eyes: Yes: Conjunctiva Clear HENT: Yes: Atraumatic Neck: Yes: Supple Cardiovascular: Yes: S1, S2 Respiratory: Yes: CTA Bilaterally Gastrointestinal: Yes: Soft Genitourinary: Yes: Lara Present Musculoskeletal: Yes: WNL Edema: Yes Edema: LLE: 1+, RLE: 1+ Neurological: Yes: Oriented Psychiatric: Yes: Oriented Labs: CBC, BMP 11/08/17 06:25 11/09/17 06:30 INR, PTT INR 1.17 (0.83-1.09) H 11/05/17 00:30 Problem List - Problems (1) CKD (chronic kidney disease) Code(s): N18.9 - CHRONIC KIDNEY DISEASE, UNSPECIFIED (2) CLL (chronic lymphocytic leukemia) Code(s): C91.90 - LYMPHOID LEUKEMIA, UNSPECIFIED NOT HAVING ACHIEVED REMISSION (3) Human immunodeficiency virus (HIV) seropositivity Code(s): Z21 - ASYMPTOMATIC HUMAN IMMUNODEFICIENCY VIRUS INFECTION STATUS (4) Sepsis Code(s): A41.9 - SEPSIS, UNSPECIFIED ORGANISM Qualifiers: Sepsis type: sepsis due to unspecified organism Qualified Code(s): A41.9 - Sepsis, unspecified organism (5) Chronic hepatitis C Code(s): B18.2 - CHRONIC VIRAL HEPATITIS C Assessment/Plan Current Medications Generic Name Dose Route Start Last Admin Trade Name Freq PRN Reason Stop Dose Admin Acetaminophen 650 mg 11/05/17 04:54 11/09/17 11:11 Tylenol - PO 650 mg Q6H PRN Administration FEVER Allopurinol 100 mg 11/05/17 10:00 11/09/17 11:11 Zyloprim - PO 100 mg DAILY [facility] Administration Carvedilol 6.25 mg 11/05/17 10:00 11/09/17 11:11 Coreg - PO 6.25 mg BID [facility] Administration Darunavir 600 mg 11/05/17 10:00 11/09/17 11:14 Prezista - PO 600 mg BID [facility] Administration Finasteride 5 mg 11/05/17 10:00 11/09/17 11:11 Proscar - PO 5 mg DAILY [facility] Administration Hydralazine HCl 25 mg 11/05/17 10:00 11/09/17 11:20 Apresoline - PO 25 mg BID [facility] Administration Piperacillin Sod/Tazobactam 50 mls @ 100 mls/hr 11/05/17 18:00 11/09/17 11:10 Sod 2.25 gm/ Dextrose IVPB 100 mls/hr Q8H-IV [facility] Administration Protocol Insulin Aspart 1 vial 11/05/17 07:00 11/09/17 06:39 Novolog Vial Sliding Scale - SQ Not Given BIDAC [facility] Protocol Nifedipine 60 mg 11/05/17 10:00 11/09/17 11:11 Procardia Xl - PO 60 mg DAILY [facility] Administration Raltegravir 400 mg 11/05/17 10:00 11/09/17 11:15 Isentress - PO 400 mg BID [facility] Administration Ranitidine HCl 150 mg 11/07/17 19:00 11/08/17 21:48 Zantac - PO 150 mg 1900 [facility] Administration Ritonavir 100 mg 11/05/17 10:00 11/09/17 11:16 Norvir - PO 100 mg BID [facility] Administration Sodium Bicarbonate 650 mg 11/07/17 22:00 11/09/17 14:24 Sodium Bicarbonate - PO 650 mg TID [facility] Administration Tamsulosin HCl 0.4 mg 11/05/17 08:30 11/09/17 09:17 Flomax - PO 0.4 mg BID@0830,2200 [facility] Administration Impression 1. CKD 2. urinary retention 3. HIV 4. liver cirrhosis 5. Hep C 6. nephrolothiasis 7. DM 8. BPH 9. HTN 10. CLL 11. 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
--- NOTE | 2017-11-09 14:49 | EKG ---
Test Reason : Blood Pressure : / mmHG Vent. Rate : 066 BPM Atrial Rate : 066 BPM P-R Int : 182 ms QRS Dur : 112 ms QT Int : 480 ms P-R-T Axes : 063 019 047 degrees QTc Int : 503 ms NORMAL SINUS RHYTHM MODERATE VOLTAGE CRITERIA FOR LVH, MAY BE NORMAL VARIANT PROLONGED QT ABNORMAL ECG WHEN COMPARED WITH ECG OF 05-NOV-2017 00:46, NO SIGNIFICANT CHANGE WAS FOUND Confirmed by THAD DOLL, DIEGO ([id number]) on 11/09/2017 2:48:32 PM Referred By: Confirmed By:DIEGO ONEIL MD
[2017-11-09] MEDS ORDERED: SODIUM CHLORIDE 0.45% 1,000 ML IV SCH (15:00)
--- NOTE | 2017-11-09 17:33 | PN ---
Teaching Attending Note Name of Resident: Heath Varela ATTENDING PHYSICIAN STATEMENT I saw and evaluated the patient. I reviewed the resident's note and discussed the case with the resident. I agree with the resident's findings and plan as documented with exceptions below. SUBJECTIVE: Patient seen and examined, overall feels unchanged, no abdominal pain or urinary symptoms. No new dyspnea. OBJECTIVE: Vital Signs Period Temp Pulse Resp BP Sys/Ventura Pulse Ox Last 24 Hr 97.7 F-98.5 F 66-71 18-20 112-131/45-91 94-97 Intake & Output 11/06/17 11/07/17 11/08/17 11/09/17 23:59 23:59 23:59 23:59 Intake Total 1915 2150 1050 1500 Output Total 1700 1300 1700 1300 Balance 215 850 -650 200 General: lying in bed in no acute distress Chest: CTAB, no rales or wheezing Abdomen;Softer today, improved distension, NT throughout, positive bowel sounds Extremities: bilateral pitting edema till below knees Active Medications Acetaminophen (Tylenol -) 650 mg PO Q6H PRN PRN Reason: FEVER Last Admin: 11/09/17 11:11 Dose: 650 mg Allopurinol (Zyloprim -) 100 mg PO DAILY [facility] Last Admin: 11/09/17 11:11 Dose: 100 mg Carvedilol (Coreg -) 6.25 mg PO BID [facility] Last Admin: 11/09/17 11:11 Dose: 6.25 mg Darunavir (Prezista -) 600 mg PO BID [facility] Last Admin: 11/09/17 11:14 Dose: 600 mg Finasteride (Proscar -) 5 mg PO DAILY [facility] Last Admin: 11/09/17 11:11 Dose: 5 mg Hydralazine HCl (Apresoline -) 25 mg PO BID [facility] Last Admin: 11/09/17 11:20 Dose: 25 mg Piperacillin Sod/Tazobactam (Sod 2.25 gm/ Dextrose) 50 mls @ 100 mls/hr IVPB Q8H-IV [facility]; Protocol Last Admin: 11/09/17 11:10 Dose: 100 mls/hr Sodium Chloride (1/2 Normal Saline) 1,000 mls @ 75 mls/hr IV ASDIR [facility] Stop: 11/10/17 04:19 Last Admin: 11/09/17 15:27 Dose: 75 mls/hr Insulin Aspart ([facility] Vial Sliding Scale -) [facility] Last Admin: 11/09/17 16:55 Dose: Not Given Nifedipine (Procardia Xl -) 60 mg PO DAILY [facility] Last Admin: 11/09/17 11:11 Dose: 60 mg Raltegravir (Isentress -) 400 mg PO BID [facility] Last Admin: 11/09/17 11:15 Dose: 400 mg Ranitidine HCl (Zantac -) 150 mg PO 1900 [facility] Last Admin: 11/08/17 21:48 Dose: 150 mg Ritonavir (Norvir -) 100 mg PO BID [facility] Last Admin: 11/09/17 11:16 Dose: 100 mg Sodium Bicarbonate (Sodium Bicarbonate -) 650 mg PO TID [facility] Last Admin: 11/09/17 14:24 Dose: 650 mg Tamsulosin HCl (Flomax -) 0.4 mg PO BID@0830,2200 [facility] Last Admin: 11/09/17 09:17 Dose: 0.4 mg Laboratory Results - last 24 hr 11/06/17 11/09/17 11/09/17 09:40 06:30 06:37 Sodium 141 Potassium 4.3 Chloride 116 H Carbon Dioxide 15 L Anion Gap 10 BUN 100 H Creatinine 5.3 H Creat Clearance w eGFR 10.94 POC Glucometer 98 Random Glucose 91 Calcium 7.4 L Blood Type B NEGATIVE Antibody Screen Negative Crossmatch See Detail 11/09/17 16:53 Sodium Potassium Chloride Carbon Dioxide Anion Gap BUN Creatinine Creat Clearance w eGFR POC Glucometer 101 Random Glucose Calcium Blood Type Antibody Screen Crossmatch Microbiology 11/04/17 00:30 Blood - Peripheral Venous Blood Culture - Preliminary NO GROWTH OBTAINED AFTER 96 HOURS, INCUBATION TO CONTINUE FOR 1 DAYS. 11/04/17 00:30 Blood - Peripheral Venous Blood Culture - Preliminary NO GROWTH OBTAINED AFTER 96 HOURS, INCUBATION TO CONTINUE FOR 1 DAYS. 11/04/17 23:42 Urine - Urine Clean Catch Urine Culture - Final Pseudomonas Aeruginosa Pseudomonas Aeruginosa#2 EKG QTC 503, LVH ASSESSMENT AND PLAN: 67 yom with PMHx of CLL (s/p treatment 2 years ago, recent WBC 50s, being monitored), CKD stage IV (baseline Cr 2.2 in 06/2017), HIV on HAART (last viral load undetectable with CD4 >2000 in ), HCV s/p treatment, cirrhosis with portal hypertension, prior IV Heroine/cocaine use, exsmoker, HTN, Prior NICM last EF 65% in 2016, Cath x 2 with normal coronaries, NIDDM, chronic leg edema, admitted to [facility] in 08/2017 with RICHY/Anemia/possible acute diverticulitis/ abnormal EKG, comes with sepsis and RICHY. -Complicated pseudomonas UTI with left pyelonephritis/Sepsis -Chronic urinary retention, ?etiology -RICHY on CKD stage IV (baseline cr 2.2 in 06/2017, 3.6 on recent d/c on 09/21/2017) -Acute on chronic anemia, suspect multifactorial, from CKD/cirrhosis, cannot r/ o intermittent occult bleed -HIV on HAART -HCV s/p treatment -Cirrhosis with portal hypertension -Acute on chronic thrombocytopenia, suspect from cirrhosis/portal hypertension compounded by sepsis/hydration -Prior NICM, recent stress test in 09/2017 -NIDDM -Chronic leg edema -Recent ?mild acute diverticulitis -Prolonged QTc Plan: Cr unchanged today. Renal input noted, Trial with IVF, defer to nephrology. Monitor volume status, f/u urine eosniophils. Urine cx noted, pansensitive pseudomonas 2 species. ID input noted, prolonged QTC, not a candidate for PO taper. Zosyn day 6 WBc improved, afebrile. Continue ortiz, Strict I/os, flomax and urology input. Off IVF, s/p 1 unit PRBC, with appropriate response. Abdominal US neg for ascitis. Hold ARB. Renal dosing of meds, avoid nephrotoxins. No gross evidence of bleed, trend H/h. Continue HAART. Continue coreg/nifedipine/hydralazine. DVTPPX with SCDs given thrombocytopenia Dispo pending clinical improvement. Plan discussed with patient in detail, all questions answered.
--- NOTE | 2017-11-09 18:06 | CON.GU ---
Consult Consult Specialty:: Referred by:: medicine Reason for Consultation:: urinary retention - History of Present Illness Chief Complaint: urinary retention History of Present Illness: 67 year old male who has seen a Dr. Garcia at [facility]. He is being managed for BPH. He came in for fever and urinary retention. He is also found to have a kidney stone which is not obstructive. His creatinine is elevated to 5. No evidence of acute obstruction. - History Source History Provided By: Patient, Medical Record Limitations to Obtaining History: No Limitations - Past Medical History Cardio/Vascular: Yes: HTN Hepatobiliary: Yes: Cirrhosis, Hepatitis C Renal/: Yes: Renal Inusuff, BPH, Other (hesitancy, intermittemncy, poor stream ) Infectious Disease: Yes: HIV Endocrine: Yes: Diabetes Mellitus Additional Medical History: lymphocytic leuckemia - Past Surgical History Past Surgical History: Yes: None - Alcohol/Substance Use Hx Alcohol Use: No History of Substance Use: reports: Cocaine (quit x 25 yrs), Heroin - Smoking History Smoking history: Never smoked Have you smoked in the past 12 months: No Aproximately how many cigarettes per day: 0 If you are a former smoker, when did you quit?: > 25 yrs ago - Social History Usual Living Arrangement: Alone ADL: Independent History of Recent Travel: No Home Medications - Allergies Allergies/Adverse Reactions: Allergies Allergy/AdvReac Type Severity Reaction Status Date / Time lactose AdvReac Verified 11/05/17 10:14 - Home Medications Home Medications: Ambulatory Orders Ritonavir [Norvir] 100 mg PO BID #0 tablet 01/07/13 Allopurinol [Zyloprim -] 100 mg PO DAILY 09/01/15 Carvedilol [Coreg -] 6.25 mg PO BID 09/01/15 Furosemide [Lasix -] 80 mg PO DAILY 09/01/15 Nifedipine [Nifedical Xl] 60 mg PO DAILY 09/01/15 Raltegravir [Isentress] 400 mg PO BID 09/01/15 Rilpivirine HCl [Edurant] 25 mg PO DAILY 09/01/15 Darunavir Ethanolate [Prezista -] 600 mg PO BID 07/09/16 Ranitidine [Zantac -] 150 mg PO DAILY 14 Days tablet 09/21/17 Tamsulosin HCl [Flomax -] 0.4 mg PO BID 14 Days cap.er.24h 09/21/17 Finasteride [Proscar -] 5 mg PO DAILY 11/05/17 Lidocaine 5% Patch [Lidoderm -] 1 patch TP BID 11/05/17 Losartan Potassium 50 mg PO DAILY 11/05/17 Sitagliptin Phosphate [Januvia] 25 mg PO DAILY 11/05/17 Sodium Bicarbonate - 650 mg PO BID 11/05/17 hydrALAZINE HCL [Apresoline -] 25 mg PO TID 11/05/17 Family Disease History - Family Disease History Family Disease History: Heart Disease: Father ( of [place] at 55, ETOH), Other: Father, Mother (hypertension), Sister (hypertension) Review of Systems - Review of Systems Constitutional: reports: Fever Genitourinary: reports: Dysuria, Frequency, Incontinence, Urgency Physical Exam- Vital Signs: Vital Signs Temperature 97.7 F 11/09/17 14:48 Pulse Rate 67 11/09/17 14:48 Respiratory Rate 18 11/09/17 14:48 Blood Pressure 116/54 L 11/09/17 14:48 O2 Sat by Pulse Oximetry (%) 94 L 11/09/17 09:00 Renal/: Yes: Lara Present. No: Bladder Distention, CVA Tenderness - Left, CVA Tenderness - Right, Hematuria Labs: CBC, BMP 11/08/17 06:25 11/09/17 06:30 Imaging - Results Cat Scan: Report Reviewed Problem List - Problems (1) Calculus of kidney Assessment/Plan: non obstructive. can observe for now until the rest of his issues stabilize. Code(s): N20.0 - CALCULUS OF KIDNEY (2) Urinary retention due to benign prostatic hyperplasia Assessment/Plan: continue flomax and finasteride. follow creatinine until it nadirs. Code(s): N40.1 - BENIGN PROSTATIC HYPERPLASIA WITH LOWER URINARY TRACT SYMP; R33.8 - OTHER RETENTION OF URINE
[2017-11-09] MEDS: RANITIDINE HCL 150 MG TABLET (FP) PO SCH (21:18)
[2017-11-10] MEDS ORDERED: PIPERACILLIN/TAZOBACTAM 2.25 GM VIAL IVPB ONE ×3 (02:11→16:11)
[2017-11-10] MEDS ORDERED: DEXTROSE 5%-WATER - 50 ML IVPB ONE ×3 (02:11→16:11)
[2017-11-10] MEDS: PIPERACILLIN/TAZOB 2.25 GM 2.25 GM in DEXTROSE 5%-WATER - 50 ML IVPB SCH ×3 (02:51→17:27)
[2017-11-10] MEDS: SODIUM BICARBONATE 650 MG TABLET PO SCH ×3 (06:46→21:19)
[2017-11-10] MEDS: INSULIN SLIDING SCALE (NOVOLOG) 1 VIAL SQ SCH ×2 (06:49→17:26)
[2017-11-10 08:25] LABS: EOS % 0.1 % (0-4.5); HEMATOCRIT 24.5 % (35.4-49); HEMOGLOBIN 7.8 GM/dL (11.7-16.9); LYMPH % 98.3 % (8-40); MCH 28.2 pg (25.7-33.7); MCHC 31.7 g/dl (32.0-35.9); MEAN CELL VOLUME 88.9 fl (80-96); MEAN PLT VOLUME 8.8 fl (7.5-11.1); MONO % 0.3 % (3.8-10.2); NEUT % 1.3 % (42.8-82.8); PLATELET COUNT 58 K/MM3 (134-434); RBC 2.76 M/mm3 (4.00-5.60); RDW 17.8 % (11.9-15.9); WHITE BLOOD COUNT 13.2 K/mm3 (4.0-10.0)
[2017-11-10 08:57] LABS: ANION GAP 10 MMOL/L (8-16); BLOOD UREA NITROGEN 91 mg/dL (7-18); CALCIUM 7.6 mg/dL (8.5-10.1); CHLORIDE 117 mmol/L (98-107); CO2 16 mmol/L (21-32); CREATININE 4.9 mg/dL (0.55-1.3); GLUCOSE,RANDOM 75 mg/dL (74-106); POTASSIUM 4.3 mmol/L (3.5-5.1); SODIUM 143 mmol/L (136-145)
--- NOTE | 2017-11-10 09:03 | PN ---
Physical Exam: SUBJECTIVE: Patient seen and examined this AM. He was sleeping comfortably on my arrival. He currently has no complaints. Says he was seen by the urologist who doesnt want to do anything additionally at this time. He says he had a normal bowel movement last night as well. Denies fevers/chills/nausea/vomiting/ diarrhea/suprapubic pain. OBJECTIVE: Vital Signs Period Temp Pulse Resp BP Sys/Ventura Pulse Ox Last 24 Hr 97.7 F-98.4 F 67-69 18-20 116-134/52-91 94-96 GENERAL: A&O, no acute distress HEAD: Normocephalic, atraumatic. EYES: PERRL, no scleral icterus EARS, NOSE, THROAT: oropharynx clear without exudates. Moist mucous membranes. NECK: supple without lymphadenopathy LUNGS: CTA b/l, no crackles or wheezes HEART: Tachycardic with regular rhythm, normal S1 and S2 with systolic murmur ABDOMEN: Soft, obese, nontender to palpation, normoactive bowel sounds MUSCULOSKELETAL: No bony deformities or tenderness, Minimal to mild CVA Tenderness no the left EXTREMITIES: 2+ pulses, warm, well-perfused. No peripheral edema. : Ortiz in place, draining pale straw colored urine NEUROLOGICAL: Cranial nerves II-XII grossly intact. Normal speech. PSYCHIATRIC: Cooperative. Good eye contact. Appropriate mood and affect. Laboratory Results - last 24 hr 11/06/17 11/07/17 11/09/17 09:40 12:55 16:53 WBC RBC Hgb Hct MCV MCH MCHC RDW Plt Count MPV Absolute Neuts (auto) Neutrophils % Lymphocytes % Monocytes % Eosinophils % Basophils % Nucleated RBC % POC Glucometer 101 Urine Eosinophils None seen Blood Type B NEGATIVE Antibody Screen Negative Crossmatch See Detail 11/10/17 11/10/17 06:43 07:00 WBC 13.2 H RBC 2.76 L Hgb 7.8 L Hct 24.5 L MCV 88.9 MCH 28.2 MCHC 31.7 L RDW 17.8 H Plt Count 58 L D MPV 8.8 Absolute Neuts (auto) 0.2 L Neutrophils % 1.3 L Lymphocytes % 98.3 H Monocytes % 0.3 L Eosinophils % 0.1 Basophils % 0.0 Nucleated RBC % 0 POC Glucometer 83 Urine Eosinophils Blood Type Antibody Screen Crossmatch Active Medications Generic Name Dose Route Start Last Admin Trade Name Nicolasa PRN Reason Stop Dose Admin Acetaminophen 650 mg 11/05/17 04:54 11/09/17 21:18 Tylenol - PO 650 mg Q6H PRN Administration FEVER Allopurinol 100 mg 11/05/17 10:00 11/09/17 11:11 Zyloprim - PO 100 mg DAILY [facility] Administration Carvedilol 6.25 mg 11/05/17 10:00 11/09/17 21:18 Coreg - PO 6.25 mg BID [facility] Administration Darunavir 600 mg 11/05/17 10:00 11/09/17 21:19 Prezista - PO 600 mg BID [facility] Administration Finasteride 5 mg 11/05/17 10:00 11/09/17 11:11 Proscar - PO 5 mg DAILY [facility] Administration Hydralazine HCl 25 mg 11/05/17 10:00 11/09/17 21:18 Apresoline - PO 25 mg BID [facility] Administration Piperacillin Sod/Tazobactam 50 mls @ 100 mls/hr 11/05/17 18:00 11/10/17 02:51 Sod 2.25 gm/ Dextrose IVPB 100 mls/hr Q8H-IV [facility] Administration Protocol Insulin Aspart 1 vial 11/05/17 07:00 11/10/17 06:49 Novolog Vial Sliding Scale - SQ Not Given BIDAC [facility] Protocol Nifedipine 60 mg 11/05/17 10:00 11/09/17 11:11 Procardia Xl - PO 60 mg DAILY [facility] Administration Raltegravir 400 mg 11/05/17 10:00 11/09/17 21:19 Isentress - PO 400 mg BID [facility] Administration Ranitidine HCl 150 mg 11/07/17 19:00 11/09/17 21:18 Zantac - PO 150 mg 1900 [facility] Administration Ritonavir 100 mg 11/05/17 10:00 11/09/17 21:20 Norvir - PO 100 mg BID [facility] Administration Sodium Bicarbonate 650 mg 11/07/17 22:00 11/10/17 06:46 Sodium Bicarbonate - PO 650 mg TID [facility] Administration Tamsulosin HCl 0.4 mg 11/05/17 08:30 11/09/17 21:18 Flomax - PO 0.4 mg BID@0830,2200 [facility] Administration ASSESSMENT/PLAN: 67 yo male with a significant past medical history of HIV, CLL, BPH, DM, Gout, HTN admitted with fever, chills and malaise Sepsis Secondary to Pylonephritis -Febrile (102.6), Tachycardic on admission -Leukocytosis improving, elevation likely baseline with CLL -UA noted, Cultures positive for Pseudomonas -CT Abd/Pelvis noted - 6mm nonobstructing calcification in left renal pole, Perinephric stranding -ID consulted - Zosyn 2.25 gm Q8 BPH -Mild prostatic enlargement noted on CT A/P -Pt with recent ortiz removal via urology on 11/02/17 which was originally placed for urinary retention -Pt noted to be retaining overnight requiring insertion of a Ortiz -Pts urologist is at [facility] and does not come here -Urology consult appreciated - no acute surgical management required at this time Acute on Chronic Kidney Disease -Likely postobstructive secondary to urinary retention and renal calculus -Ortiz placed with relief of urinary retention -Nephrology consult appreciated -Bicarb -1/2 NS @ 75 cc/hr 1L each of last two days with stabilization/improvement of renal function -Will await nephrology recommendation for further fluid management CLL with Leukocytosis and Thrombocytopenia -Stable, will monitor platelet count -Diffuse lymphadenopathy noted on CT Abd/Pelvis DM -Hold home meds -BGMs ACHS -Insulin sliding scale for glycemic control Gout -No acute flareup at this time -Continue maintenance Allopurinol 100 mg PO Daily HTN -Hydralazine 25 mg PO BID -Coreg 6.25 mg PO BID -Procardia 60 mg PO Daily -Hold lasix for now -Blood pressures stable, will continue to monitor HIV -CD4 pending -Raltegravir, Ritonavir, Darunavir DVT Prophylaxis -Mechanical only, hold chemical AC due to low platelet count FEN -Fluids: as per nephrology -Electrolytes: BMP in AM -Nutrition: Sodium controlled diet Disposition Med/Surg Visit type - Emergency Visit Emergency Visit: Yes ED Registration Date: 11/05/17 Care time: The patient presented to the Emergency Department on the above date and was hospitalized for further evaluation of their emergent condition. - New Patient This patient is new to me today: No - Critical Care Critical Care patient: No
--- NOTE | 2017-11-10 09:36 | PN ---
Teaching Attending Note Name of Resident: Heath Varela ATTENDING PHYSICIAN STATEMENT I saw and evaluated the patient. I reviewed the resident's note and discussed the case with the resident. I agree with the resident's findings and plan as documented with exceptions below. SUBJECTIVE: Patient seen and examined. overall unchanged, urinating, no new abdominal pain or concerns. OBJECTIVE: Vital Signs Period Temp Pulse Resp BP Sys/Ventura Pulse Ox Last 24 Hr 97.7 F-98.2 F 67-69 18-20 116-134/52-60 96 Intake & Output 11/07/17 11/08/17 11/09/17 11/10/17 23:59 23:59 23:59 23:59 Intake Total 2150 1050 2400 800 Output Total 1300 1700 2500 1100 Balance 850 -650 -100 -300 General: sitting in bed in no acute distress Chest: few right basilar rales, good air entry, no wheezing Abdomen;Softer, distended but improved, NT throughout Extremities: unchanged 2+ pedal pitting edema Active Medications Acetaminophen (Tylenol -) 650 mg PO Q6H PRN PRN Reason: FEVER Last Admin: 11/09/17 21:18 Dose: 650 mg Allopurinol (Zyloprim -) 100 mg PO DAILY [facility] Last Admin: 11/09/17 11:11 Dose: 100 mg Carvedilol (Coreg -) 6.25 mg PO BID [facility] Last Admin: 11/09/17 21:18 Dose: 6.25 mg Darunavir (Prezista -) 600 mg PO BID [facility] Last Admin: 11/09/17 21:19 Dose: 600 mg Finasteride (Proscar -) 5 mg PO DAILY [facility] Last Admin: 11/09/17 11:11 Dose: 5 mg Hydralazine HCl (Apresoline -) 25 mg PO BID [facility] Last Admin: 11/09/17 21:18 Dose: 25 mg Piperacillin Sod/Tazobactam (Sod 2.25 gm/ Dextrose) 50 mls @ 100 mls/hr IVPB Q8H-IV [facility]; Protocol Last Admin: 11/10/17 02:51 Dose: 100 mls/hr Insulin Aspart (Novolog Vial Sliding Scale -) 1 vial SQ BIDAC [facility]; Protocol Last Admin: 11/10/17 06:49 Dose: Not Given Nifedipine (Procardia Xl -) 60 mg PO DAILY [facility] Last Admin: 11/09/17 11:11 Dose: 60 mg Raltegravir (Isentress -) 400 mg PO BID [facility] Last Admin: 11/09/17 21:19 Dose: 400 mg Ranitidine HCl (Zantac -) 150 mg PO 1900 [facility] Last Admin: 11/09/17 21:18 Dose: 150 mg Ritonavir (Norvir -) 100 mg PO BID [facility] Last Admin: 11/09/17 21:20 Dose: 100 mg Sodium Bicarbonate (Sodium Bicarbonate -) 650 mg PO TID [facility] Last Admin: 11/10/17 06:46 Dose: 650 mg Tamsulosin HCl (Flomax -) 0.4 mg PO BID@0830,2200 [facility] Last Admin: 11/09/17 21:18 Dose: 0.4 mg Laboratory Results - last 24 hr 11/06/17 11/07/17 11/09/17 09:40 12:55 16:53 WBC RBC Hgb Hct MCV MCH MCHC RDW Plt Count MPV Absolute Neuts (auto) Neutrophils % Lymphocytes % Monocytes % Eosinophils % Basophils % Nucleated RBC % Sodium Potassium Chloride Carbon Dioxide Anion Gap BUN Creatinine Creat Clearance w eGFR POC Glucometer 101 Random Glucose Calcium Urine Eosinophils None seen Blood Type B NEGATIVE Antibody Screen Negative Crossmatch See Detail 11/10/17 11/10/17 11/10/17 06:43 07:00 07:00 WBC 13.2 H RBC 2.76 L Hgb 7.8 L Hct 24.5 L MCV 88.9 MCH 28.2 MCHC 31.7 L RDW 17.8 H Plt Count 58 L D MPV 8.8 Absolute Neuts (auto) 0.2 L Neutrophils % 1.3 L Lymphocytes % 98.3 H Monocytes % 0.3 L Eosinophils % 0.1 Basophils % 0.0 Nucleated RBC % 0 Sodium 143 Potassium 4.3 Chloride 117 H Carbon Dioxide 16 L Anion Gap 10 BUN 91 H Creatinine 4.9 H Creat Clearance w eGFR 11.98 POC Glucometer 83 Random Glucose 75 Calcium 7.6 L Urine Eosinophils Blood Type Antibody Screen Crossmatch Microbiology 11/04/17 00:30 Blood - Peripheral Venous Blood Culture - Final NO GROWTH AFTER 5 DAYS INCUBATION 11/04/17 00:30 Blood - Peripheral Venous Blood Culture - Final NO GROWTH AFTER 5 DAYS INCUBATION 11/04/17 23:42 Urine - Urine Clean Catch Urine Culture - Final Pseudomonas Aeruginosa Pseudomonas Aeruginosa#2 ASSESSMENT AND PLAN: 67 yom with PMHx of CLL (s/p treatment 2 years ago, recent WBC 50s, being monitored), CKD stage IV (baseline Cr 2.2 in 06/2017), HIV on HAART (last viral load undetectable with CD4 >2000 in ), HCV s/p treatment, cirrhosis with portal hypertension, prior IV Heroine/cocaine use, exsmoker, HTN, Prior NICM last EF 65% in 2015, Cath x 2 with normal coronaries, NIDDM, chronic leg edema, admitted to [facility] in 08/2017 with RICHY/Anemia/possible acute diverticulitis/ abnormal EKG, comes with sepsis and RICHY. -Complicated pseudomonas UTI with left pyelonephritis/Sepsis -Chronic urinary retention, ?etiology -RICHY on CKD stage IV (baseline cr 2.2 in 06/2017, 3.6 on recent d/c on 09/21/2017) -Acute on chronic anemia, suspect multifactorial, from CKD/cirrhosis, cannot r/ o intermittent occult bleed -HIV on HAART -HCV s/p treatment -Cirrhosis with portal hypertension -Acute on chronic thrombocytopenia, suspect from cirrhosis/portal hypertension compounded by sepsis/hydration -Prior NICM, recent stress test in 09/2017 -NIDDM -Chronic leg edema -Recent ?mild acute diverticulitis -Prolonged QTc Plan: Cr slowly improving. additional trial with IVF on 11/09, defer to nephrology. Monitor volume status, urine eosinophils neg Urine cx noted, pansensitive pseudomonas 2 species. ID input noted, prolonged QTC, not a candidate for PO taper. Zosyn day 7 WBc improved, afebrile. Continue ortiz, Strict I/os, flomax/finasteride and urology input noted. s/p 1 unit PRBC, with appropriate response. Abdominal US neg for ascitis. Hold ARB. Renal dosing of meds, avoid nephrotoxins. No gross evidence of bleed, trend H/h. Continue HAART. Continue coreg/nifedipine/hydralazine. DVTPPX with SCDs given thrombocytopenia Dispo pending clinical improvement. PT eval Plan discussed with patient in detail, all questions answered.
[2017-11-10] MEDS ORDERED: PT OWN MED DRAWER 7, Y5N ONE ×2 (09:53→21:12)
[2017-11-10] MEDS: NIFEdipine E.R 60 MG TABLET (UD) PO SCH (10:00)
[2017-11-10] MEDS: hydrALAZINE HCL 25 MG TABLET (FP) PO SCH ×2 (10:00→21:19)
[2017-11-10] MEDS: TAMSULOSIN HCL 0.4 MG CAP PO SCH ×2 (10:00→21:20)
[2017-11-10] MEDS: ALLOPURINOL 100 MG TABLET (FP) PO SCH (10:00)
[2017-11-10] MEDS: RALTEGRAVIR POTASSIUM 400 MG TAB PO SCH ×2 (10:01→21:20)
[2017-11-10] MEDS: FINASTERIDE 5 MG TABLET (FP) PO SCH (10:01)
[2017-11-10] MEDS: RILPIVIRINE HCL 25 MG TABLET PO SCH (10:01)
[2017-11-10] MEDS: CARVEDILOL 6.25 MG TABLET (FP) PO SCH ×2 (10:01→21:19)
[2017-11-10] MEDS: RITONAVIR 100 MG TABLET PO SCH ×2 (10:01→21:20)
[2017-11-10] MEDS: DARUNAVIR ETHANOLATE 600 MG TAB PO SCH ×2 (10:01→21:20)
--- NOTE | 2017-11-10 15:27 | PN ---
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 CKD 2. urinary retention 3. HIV 4. liver cirrhosis 5. Hep C 6. nephrolothiasis 7. DM 8. BPH 9. HTN 10. CLL 11. anemia Active Medications Acetaminophen (Tylenol -) 650 mg PO Q6H PRN PRN Reason: FEVER Last Admin: 11/09/17 21:18 Dose: 650 mg Allopurinol (Zyloprim -) 100 mg PO DAILY [facility] Last Admin: 11/10/17 10:00 Dose: 100 mg Carvedilol (Coreg -) 6.25 mg PO BID [facility] Last Admin: 11/10/17 10:01 Dose: 6.25 mg Darunavir (Prezista -) 600 mg PO BID [facility] Last Admin: 11/10/17 10:01 Dose: 600 mg Finasteride (Proscar -) 5 mg PO DAILY [facility] Last Admin: 11/10/17 10:01 Dose: 5 mg Hydralazine HCl (Apresoline -) 25 mg PO BID [facility] Last Admin: 11/10/17 10:00 Dose: 25 mg Piperacillin Sod/Tazobactam (Sod 2.25 gm/ Dextrose) 50 mls @ 100 mls/hr IVPB Q8H-IV [facility]; Protocol Last Admin: 11/10/17 10:01 Dose: 100 mls/hr Insulin Aspart (Novolog Vial Sliding Scale -) 1 vial SQ BIDAC [facility]; Protocol Last Admin: 11/10/17 06:49 Dose: Not Given Nifedipine (Procardia Xl -) 60 mg PO DAILY [facility] Last Admin: 11/10/17 10:00 Dose: 60 mg Raltegravir (Isentress -) 400 mg PO BID [facility] Last Admin: 11/10/17 10:01 Dose: 400 mg Ranitidine HCl (Zantac -) 150 mg PO 1900 [facility] Last Admin: 11/09/17 21:18 Dose: 150 mg Ritonavir (Norvir -) 100 mg PO BID [facility] Last Admin: 11/10/17 10:01 Dose: 100 mg Sodium Bicarbonate (Sodium Bicarbonate -) 650 mg PO TID [facility] Last Admin: 11/10/17 14:47 Dose: 650 mg Tamsulosin HCl (Flomax -) 0.4 mg PO BID@0830,2200 [facility] Last Admin: 11/10/17 10:00 Dose: 0.4 mg Last Vital Signs Temp Pulse Resp BP Pulse Ox 97.8 F 67 17 133/63 96 11/10/17 14:06 11/10/17 14:06 11/10/17 14:06 11/10/17 14:06 11/09/17 21:00 CBC, BMP 11/10/17 07:00 11/10/17 07:00 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
[2017-11-10] MEDS: RANITIDINE HCL 150 MG TABLET (FP) PO SCH (21:19)
[2017-11-10] MEDS: ACETAMINOPHEN 325 MG TABLET (FP) PO PRN (22:59)
[2017-11-11] MEDS ORDERED: PIPERACILLIN/TAZOBACTAM 2.25 GM VIAL IVPB ONE ×2 (01:25→10:36)
[2017-11-11] MEDS ORDERED: DEXTROSE 5%-WATER - 50 ML IVPB ONE ×2 (01:25→10:36)
[2017-11-11] MEDS: PIPERACILLIN/TAZOB 2.25 GM 2.25 GM in DEXTROSE 5%-WATER - 50 ML IVPB SCH ×2 (02:26→10:43)
[2017-11-11] MEDS: INSULIN SLIDING SCALE (NOVOLOG) 1 VIAL SQ SCH ×2 (06:59→17:14)
[2017-11-11] MEDS: SODIUM BICARBONATE 650 MG TABLET PO SCH ×3 (06:59→21:19)
[2017-11-11] MEDS ORDERED: PT OWN MED DRAWER 7, Y5N ONE ×4 (08:18→21:10)
[2017-11-11 08:57] LABS: ANION GAP 12 MMOL/L (8-16); BLOOD UREA NITROGEN 76 mg/dL (7-18); CALCIUM 8.1 mg/dL (8.5-10.1); CHLORIDE 120 mmol/L (98-107); CO2 13 mmol/L (21-32); CREATININE 4.2 mg/dL (0.55-1.3); GLUCOSE,RANDOM 74 mg/dL (74-106); POTASSIUM 4.6 mmol/L (3.5-5.1); SODIUM 145 mmol/L (136-145)
[2017-11-11] MEDS: TAMSULOSIN HCL 0.4 MG CAP PO SCH ×2 (09:03→21:20)
[2017-11-11 09:04] LABS: LYMPH % 98.2 % (8-40); MONO % 0.6 % (3.8-10.2); NEUT % 1.2 % (42.8-82.8); WHITE BLOOD COUNT 13.5 K/mm3 (4.0-10.0)
[2017-11-11 09:13] LABS: HEMATOCRIT 23.7 % (35.4-49); HEMOGLOBIN 7.6 GM/dL (11.7-16.9); MCH 28.9 pg (25.7-33.7); MCHC 32.2 g/dl (32.0-35.9); MEAN CELL VOLUME 89.8 fl (80-96); MEAN PLT VOLUME 8.8 fl (7.5-11.1); RBC 2.64 M/mm3 (4.00-5.60); RDW 18.1 % (11.9-15.9)
[2017-11-11 09:14] LABS: PLATELET COUNT 25 K/MM3 (134-434)
[2017-11-11] MEDS: FINASTERIDE 5 MG TABLET (FP) PO SCH (10:43)
[2017-11-11] MEDS: CARVEDILOL 6.25 MG TABLET (FP) PO SCH ×2 (10:43→21:19)
[2017-11-11] MEDS: ALLOPURINOL 100 MG TABLET (FP) PO SCH (10:43)
[2017-11-11] MEDS: hydrALAZINE HCL 25 MG TABLET (FP) PO SCH ×2 (10:43→21:20)
[2017-11-11] MEDS: NIFEdipine E.R 60 MG TABLET (UD) PO SCH (10:43)
[2017-11-11] MEDS: RILPIVIRINE HCL 25 MG TABLET PO SCH (10:44)
[2017-11-11] MEDS: DARUNAVIR ETHANOLATE 600 MG TAB PO SCH ×2 (10:44→21:20)
[2017-11-11] MEDS: RALTEGRAVIR POTASSIUM 400 MG TAB PO SCH ×2 (10:44→21:20)
[2017-11-11] MEDS: RITONAVIR 100 MG TABLET PO SCH ×2 (10:44→21:19)
[2017-11-11] MEDS: ACETAMINOPHEN 325 MG TABLET (FP) PO PRN (10:47)
[2017-11-11 11:50] LABS: ANISOCYTOSIS 2+; MACROCYTOSIS 0; PLATELET ESTIMATE DECREASED; TEAR DROP CELLS 1+
--- NOTE | 2017-11-11 14:33 | CONSULT ---
Consult - text type - Consultation Consultation Note: Pt is a 67 year old male with pmhx of CKD, CLL, HIV, BPH, and urinary retention who presents with fevers and chills. Being treated for pseudomonal UTI We have bben consulted for thrombocytopenia Being followed by Dr. Glynn at [facility] for CLL. Recevied 4 doses of obintuzumab last year - History Source History Provided By: Patient, Medical Record - Past Medical History Cardio/Vascular: Yes: HTN Hepatobiliary: Yes: Cirrhosis, Hepatitis C Renal/: Yes: Renal Inusuff, Other (hesitancy, intermittemncy, poor stream) Infectious Disease: Yes: HIV Endocrine: Yes: Diabetes Mellitus Additional Medical History:CLL - Past Surgical History Past Surgical History: Yes: None - Alcohol/Substance Use Hx Alcohol Use: No History of Substance Use: reports: Cocaine (quit x 25 yrs), Heroin - Smoking History Smoking history: Never smoked - Allergies Allergies/Adverse Reactions: Allergies Allergy/AdvReac Type Severity Reaction Status Date / Time lactose AdvReac Verified 11/05/17 10:14 - Home Medications Home Medications: Ambulatory Orders Ritonavir [Norvir] 100 mg PO BID #0 tablet 01/07/13 Allopurinol [Zyloprim -] 100 mg PO DAILY 09/01/15 Carvedilol [Coreg -] 6.25 mg PO BID 09/01/15 Furosemide [Lasix -] 80 mg PO DAILY 09/01/15 Nifedipine [Nifedical Xl] 60 mg PO DAILY 09/01/15 Raltegravir [Isentress] 400 mg PO BID 09/01/15 Rilpivirine HCl [Edurant] 25 mg PO DAILY 09/01/15 Darunavir Ethanolate [Prezista -] 600 mg PO BID 07/09/16 Ranitidine [Zantac -] 150 mg PO DAILY 14 Days tablet 09/21/17 Tamsulosin HCl [Flomax -] 0.4 mg PO BID 14 Days cap.er.24h 09/21/17 Finasteride [Proscar -] 5 mg PO DAILY 11/05/17 Lidocaine 5% Patch [Lidoderm -] 1 patch TP BID 11/05/17 Losartan Potassium 50 mg PO DAILY 11/05/17 Sitagliptin Phosphate [Januvia] 25 mg PO DAILY 11/05/17 Sodium Bicarbonate - 650 mg PO BID 11/05/17 hydrALAZINE HCL [Apresoline -] 25 mg PO TID 11/05/17 Family Disease History - Family Disease History Family Disease History: Heart Disease: Father ( of [place] at 55, ETOH), Other: Father, Mother (hypertension), Sister (hypertension) Physical Exam Vital Signs: Last Vital Signs Temp Pulse Resp BP Pulse Ox 97.4 F L 57 L 17 112/52 L 96 11/11/17 13:08 11/11/17 13:08 11/11/17 13:08 11/11/17 13:08 11/10/17 21:00 Cor: RSR, No murmurs, No gallops Lungs: Clear to P&A Abd: Soft, Normal bowel sounds, No organomegaly Ext:No significant edema Skin: No rashes, Integument intact Abnormal Lab Results 11/11/17 11/11/17 07:30 07:30 WBC 13.5 H RBC 2.64 L Hgb 7.6 L Hct 23.7 L RDW 18.1 H Plt Count 25 L* D Absolute Neuts (auto) 0.2 L Neutrophils % 1.2 L Neutrophils % (Manual) 0.0 L Lymphocytes % 98.2 H Lymphocytes % (Manual) 90.6 H* Monocytes % 0.6 L D Chloride 120 H Carbon Dioxide 13 L BUN 76 H Creatinine 4.2 H Calcium 8.1 L Home Medication List Medication Instructions Recorded Confirmed Type Allopurinol [Zyloprim -] 100 mg PO DAILY 09/01/15 11/05/17 History Carvedilol [Coreg -] 6.25 mg PO BID 09/01/15 11/05/17 History Furosemide [Lasix -] 80 mg PO DAILY 09/01/15 11/05/17 History Nifedipine [Nifedical Xl] 60 mg PO DAILY 09/01/15 11/05/17 History Raltegravir [Isentress] 400 mg PO BID 09/01/15 11/05/17 History Rilpivirine HCl [Edurant] 25 mg PO DAILY 09/01/15 11/05/17 History Darunavir Ethanolate [Prezista -] 600 mg PO BID 07/09/16 11/05/17 History Finasteride [Proscar -] 5 mg PO DAILY 11/05/17 11/05/17 History Lidocaine 5% Patch [Lidoderm -] 1 patch TP BID 11/05/17 History Losartan Potassium 50 mg PO DAILY 11/05/17 History Sitagliptin Phosphate [Januvia] 25 mg PO DAILY 11/05/17 11/05/17 History Sodium Bicarbonate - 650 mg PO BID 11/05/17 11/05/17 History hydrALAZINE HCL [Apresoline -] 25 mg PO TID 11/05/17 11/05/17 History Active Medications Generic Name Dose Route Start Last Admin Trade Name Fre PRN Reason Stop Dose Admin Acetaminophen 650 mg 11/05/17 04:54 11/11/17 10:47 Tylenol - PO 650 mg Q6H PRN Administration FEVER Allopurinol 100 mg 11/05/17 10:00 11/11/17 10:43 Zyloprim - PO 100 mg DAILY L[facility] Administration Carvedilol 6.25 mg 11/05/17 10:00 11/11/17 10:43 Coreg - PO 6.25 mg BID L[facility] Administration Darunavir 600 mg 11/05/17 10:00 11/11/17 10:44 Prezista - PO 600 mg BID L[facility]IA Administration Finasteride 5 mg 11/05/17 10:00 11/11/17 10:43 Proscar - PO 5 mg DAILY [facility] Administration Hydralazine HCl 25 mg 11/05/17 10:00 11/11/17 10:43 Apresoline - PO 25 mg BID [facility] Administration Piperacillin Sod/Tazobactam 50 mls @ 100 mls/hr 11/05/17 18:00 11/11/17 10:43 Sod 2.25 gm/ Dextrose IVPB 100 mls/hr Q8H-IV [facility] Administration Protocol Insulin Aspart 1 vial 11/05/17 07:00 11/11/17 06:59 Novolog Vial Sliding Scale - SQ Not Given [facility] Protocol Nifedipine 60 mg 11/05/17 10:00 11/11/17 10:43 Procardia Xl - PO 60 mg DAILY [facility] Administration Raltegravir 400 mg 11/05/17 10:00 11/11/17 10:44 Isentress - PO 400 mg BID [facility] Administration Ranitidine HCl 150 mg 11/07/17 19:00 11/10/17 21:19 Zantac - PO 150 mg 1900 [facility] Administration Ritonavir 100 mg 11/05/17 10:00 11/11/17 10:44 Norvir - PO 100 mg BID [facility] Administration Sodium Bicarbonate 650 mg 11/07/17 22:00 11/11/17 06:59 Sodium Bicarbonate - PO 650 mg TID [facility] Administration Tamsulosin HCl 0.4 mg 11/05/17 08:30 11/11/17 09:03 Flomax - PO 0.4 mg BID@0830,2200 [facility] Administration Problem List - Problems (1) CKD (chronic kidney disease) Code(s): N18.9 - CHRONIC KIDNEY DISEASE, UNSPECIFIED (2) CLL (chronic lymphocytic leukemia) Code(s): C91.90 - LYMPHOID LEUKEMIA, UNSPECIFIED NOT HAVING ACHIEVED REMISSION (3) Human immunodeficiency virus (HIV) seropositivity Code(s): Z21 - ASYMPTOMATIC HUMAN IMMUNODEFICIENCY VIRUS INFECTION STATUS (4) Sepsis Code(s): A41.9 - SEPSIS, UNSPECIFIED ORGANISM Qualifiers: Sepsis type: sepsis due to unspecified organism Qualified Code(s): A41.9 - Sepsis, unspecified organism (5) Chronic hepatitis C Code(s): B18.2 - CHRONIC VIRAL HEPATITIS C A/P 1. CKD 2. urinary retention/UTI 3. HIV 4. liver cirrhosis 5. Hep C 6. nephrolothiasis 7. DM 8. BPH 9. HTN 10. CLL 11. anemia Thrombocytopenia-- ? pseudomonas UTI ? beta lactam related Unlikely CLL progression given time frame, clinical course check coags/fibrinogen transfuse for active bleeding/platelets < 10,000 Consider ID consult ? switch betalactam
--- NOTE | 2017-11-11 16:34 | PN ---
Physical Exam: SUBJECTIVE: Patient seen and examined, no new complaints. Small BM today, non bloody non dark. No dyspnea. Overall feels well, no new complaints. OBJECTIVE: Vital Signs Period Temp Pulse Resp BP Sys/Ventura Pulse Ox Last 24 Hr 97.4 F-98.6 F 57-72 17-20 112-150/52-66 96 GENERAL: The patient is awake, alert, and fully oriented, in no acute distress. HEAD: Normal with no signs of trauma. EYES: PERRL, extraocular movements intact, sclera anicteric, conjunctiva clear. No ptosis. Neck: soft supple, no JVD Chest: Scant right basilar rales, no wheezing, good air entry Abdomen:soft, distended, unchanged, NT throughout Extremities: 2+ pitting pedal edema Laboratory Results - last 24 hr 11/10/17 11/11/17 11/11/17 16:47 06:58 07:30 WBC 13.5 H RBC 2.64 L Hgb 7.6 L Hct 23.7 L MCV 89.8 MCH 28.9 MCHC 32.2 RDW 18.1 H Plt Count 25 L* D MPV 8.8 Absolute Neuts (auto) 0.2 L Neutrophils % 1.2 L Neutrophils % (Manual) 0.0 L Band Neutrophils % 0.0 Lymphocytes % 98.2 H Lymphocytes % (Manual) 90.6 H* Monocytes % 0.6 L D Monocytes % (Manual) 6 D Eosinophils % 0.0 D Eosinophils % (Manual) 0.0 Basophils % 0.0 Basophils % (Manual) 0.0 Myelocytes % (Man) 0 Promyelocytes % (Man) 0 Blast Cells % (Manual) 0 Nucleated RBC % 0 Metamyelocytes 0 Hypochromia 1+ Platelet Estimate Decreased Polychromasia 3+ Poikilocytosis 2+ Anisocytosis 2+ Microcytosis 2+ Macrocytosis 0 Tear Drop Cells 1+ [place] Cells 1+ Sodium Potassium Chloride Carbon Dioxide Anion Gap BUN Creatinine Creat Clearance w eGFR POC Glucometer 83 82 Random Glucose Calcium 11/11/17 07:30 WBC RBC Hgb Hct MCV MCH MCHC RDW Plt Count MPV Absolute Neuts (auto) Neutrophils % Neutrophils % (Manual) Band Neutrophils % Lymphocytes % Lymphocytes % (Manual) Monocytes % Monocytes % (Manual) Eosinophils % Eosinophils % (Manual) Basophils % Basophils % (Manual) Myelocytes % (Man) Promyelocytes % (Man) Blast Cells % (Manual) Nucleated RBC % Metamyelocytes Hypochromia Platelet Estimate Polychromasia Poikilocytosis Anisocytosis Microcytosis Macrocytosis Tear Drop Cells [place] Cells Sodium 145 Potassium 4.6 Chloride 120 H Carbon Dioxide 13 L Anion Gap 12 BUN 76 H Creatinine 4.2 H Creat Clearance w eGFR 14.31 POC Glucometer Random Glucose 74 Calcium 8.1 L Active Medications Generic Name Dose Route Start Last Admin Trade Name Freq PRN Reason Stop Dose Admin Acetaminophen 650 mg 11/05/17 04:54 11/11/17 10:47 Tylenol - PO 650 mg Q6H PRN Administration FEVER Allopurinol 100 mg 11/05/17 10:00 11/11/17 10:43 Zyloprim - PO 100 mg DAILY [facility] Administration Carvedilol 6.25 mg 11/05/17 10:00 11/11/17 10:43 Coreg - PO 6.25 mg BID [facility] Administration Darunavir 600 mg 11/05/17 10:00 11/11/17 10:44 Prezista - PO 600 mg BID [facility] Administration Finasteride 5 mg 11/05/17 10:00 11/11/17 10:43 Proscar - PO 5 mg DAILY [facility] Administration Hydralazine HCl 25 mg 11/05/17 10:00 11/11/17 10:43 Apresoline - PO 25 mg BID [facility] Administration Piperacillin Sod/Tazobactam 50 mls @ 100 mls/hr 11/05/17 18:00 11/11/17 10:43 Sod 2.25 gm/ Dextrose IVPB 100 mls/hr Q8H-IV [facility] Administration Protocol Insulin Aspart 1 vial 11/05/17 07:00 11/11/17 06:59 Novolog Vial Sliding Scale - SQ Not Given BIDAC [facility] Protocol Nifedipine 60 mg 11/05/17 10:00 11/11/17 10:43 Procardia Xl - PO 60 mg DAILY [facility] Administration Raltegravir 400 mg 11/05/17 10:00 11/11/17 10:44 Isentress - PO 400 mg BID [facility] Administration Ranitidine HCl 150 mg 11/07/17 19:00 11/10/17 21:19 Zantac - PO 150 mg 1900 [facility] Administration Ritonavir 100 mg 11/05/17 10:00 11/11/17 10:44 Norvir - PO 100 mg BID [facility] Administration Sodium Bicarbonate 650 mg 11/07/17 22:00 11/11/17 14:50 Sodium Bicarbonate - PO 650 mg TID [facility] Administration Tamsulosin HCl 0.4 mg 11/05/17 08:30 11/11/17 09:03 Flomax - PO 0.4 mg BID@0830,2200 [facility] Administration Microbiology 11/04/17 00:30 Blood - Peripheral Venous Blood Culture - Final NO GROWTH AFTER 5 DAYS INCUBATION 11/04/17 00:30 Blood - Peripheral Venous Blood Culture - Final NO GROWTH AFTER 5 DAYS INCUBATION 11/04/17 23:42 Urine - Urine Clean Catch Urine Culture - Final Pseudomonas Aeruginosa Pseudomonas Aeruginosa#2 ASSESSMENT/PLAN: 67 yom with PMHx of CLL (s/p treatment 2 years ago, recent WBC 50s, being monitored), CKD stage IV (baseline Cr 2.2 in 06/2017), HIV on HAART (last viral load undetectable with CD4 >2000 in ), HCV s/p treatment, cirrhosis with portal hypertension, prior IV Heroine/cocaine use, exsmoker, HTN, Prior NICM last EF 65% in 2015, Cath x 2 with normal coronaries, NIDDM, chronic leg edema, admitted to [facility] in 08/2017 with RICHY/Anemia/possible acute diverticulitis/ abnormal EKG, comes with sepsis and RICHY. -Complicated pseudomonas UTI with left pyelonephritis/Sepsis -Chronic urinary retention, ?etiology -RICHY on CKD stage IV (baseline cr 2.2 in 06/2017, 3.6 on recent d/c on 09/21/2017) -Acute on chronic anemia, suspect multifactorial, from CKD/cirrhosis, cannot r/ o intermittent occult bleed -HIV on HAART -HCV s/p treatment -Cirrhosis with portal hypertension -Acute on chronic thrombocytopenia, suspect from cirrhosis/portal hypertension compounded by sepsis/hydration, ?beta lactam contributory -Prior NICM, recent stress test in 09/2017 -NIDDM -Chronic leg edema -Recent ?mild acute diverticulitis -Prolonged QTc Plan: Cr slowly improving. No additional IVF yesterday. patient continues to improve, plan per renal. Monitor volume status, urine eosinophils neg Worsening platelets. Hematology consulted. Input appreciated. Zosyn day 8. Discussed with Dr. Cooley, ?Switch zosyn, will follow up. Prolonged QTc, no a candidate for oral abx. WBc improved, afebrile. Continue ortiz, Strict I/os, flomax/finasteride and urology input noted. s/p 1 unit PRBC, with appropriate response. Abdominal US neg for ascitis. Hold ARB. Renal dosing of meds, avoid nephrotoxins. No gross evidence of bleed, trend H/h. Continue HAART. Continue coreg/nifedipine/hydralazine. DVTPPX with SCDs given thrombocytopenia Dispo pending clinical improvement. PT eval Plan discussed with patient , nursing, Dr. Mead, Dr. Cooley, all questions answered. Visit type - Emergency Visit Emergency Visit: Yes ED Registration Date: 11/05/17 Care time: The patient presented to the Emergency Department on the above date and was hospitalized for further evaluation of their emergent condition. - New Patient This patient is new to me today: No - Critical Care Critical Care patient: No - Discharge Referral Referred to [facility] Med P.C.: No
[2017-11-11] MEDS ORDERED: FUROSEMIDE 40 MG TABLET (FP) PO ONE ×2 (18:58→21:30)
--- NOTE | 2017-11-11 19:59 | PN ---
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 CKD 2. urinary retention 3. HIV 4. liver cirrhosis 5. Hep C 6. nephrolothiasis 7. DM 8. BPH 9. HTN 10. CLL 11. anemia Current Medications Acetaminophen (Tylenol -) 650 mg PO Q6H PRN PRN Reason: FEVER Last Admin: 11/11/17 10:47 Dose: 650 mg Allopurinol (Zyloprim -) 100 mg PO DAILY [facility] Last Admin: 11/11/17 10:43 Dose: 100 mg Carvedilol (Coreg -) 6.25 mg PO BID [facility] Last Admin: 11/11/17 10:43 Dose: 6.25 mg Darunavir (Prezista -) 600 mg PO BID [facility] Last Admin: 11/11/17 10:44 Dose: 600 mg Finasteride (Proscar -) 5 mg PO DAILY [facility] Last Admin: 11/11/17 10:43 Dose: 5 mg Hydralazine HCl (Apresoline -) 25 mg PO BID [facility] Last Admin: 11/11/17 10:43 Dose: 25 mg Insulin Aspart ([facility] Last Admin: 11/11/17 17:14 Dose: Not Given Nifedipine (Procardia Xl -) 60 mg PO DAILY [facility] Last Admin: 11/11/17 10:43 Dose: 60 mg Raltegravir (Isentress -) 400 mg PO BID [facility] Last Admin: 11/11/17 10:44 Dose: 400 mg Ranitidine HCl (Zantac -) 150 mg PO 1900 [facility] Last Admin: 11/10/17 21:19 Dose: 150 mg Ritonavir (Norvir -) 100 mg PO BID [facility] Last Admin: 11/11/17 10:44 Dose: 100 mg Sodium Bicarbonate (Sodium Bicarbonate -) 650 mg PO TID [facility] Last Admin: 11/11/17 14:50 Dose: 650 mg Tamsulosin HCl (Flomax -) 0.4 mg PO BID@0830,2200 [facility] Last Admin: 11/11/17 09:03 Dose: 0.4 mg Last Vital Signs Temp Pulse Resp BP Pulse Ox 97.4 F L 57 L 17 112/52 L 96 11/11/17 13:08 11/11/17 13:08 11/11/17 13:08 11/11/17 13:08 11/11/17 10:30 alert in nad Lungs clear Heart reg Abd soft nontender Ext 2-3+ edema CBC, BMP 11/11/17 07:30 11/11/17 07:30 IMP ckd increased leg edema metabolic acidosis Plan- increase bicarb dose one dose of lasix today
[2017-11-11] MEDS: RANITIDINE HCL 150 MG TABLET (FP) PO SCH (21:31)
[2017-11-12] MEDS: SODIUM BICARBONATE 650 MG TABLET PO SCH ×3 (06:41→21:20)
[2017-11-12] MEDS: INSULIN SLIDING SCALE (NOVOLOG) 1 VIAL SQ SCH ×2 (06:42→17:17)
[2017-11-12 07:50] LABS: EOS % 0.1 % (0-4.5); HEMATOCRIT 24.9 % (35.4-49); HEMOGLOBIN 7.9 GM/dL (11.7-16.9); LYMPH % 97.5 % (8-40); MCH 28.4 pg (25.7-33.7); MCHC 31.8 g/dl (32.0-35.9); MEAN CELL VOLUME 89.3 fl (80-96); MEAN PLT VOLUME 7.9 fl (7.5-11.1); MONO % 0.8 % (3.8-10.2); NEUT % 1.6 % (42.8-82.8); PLATELET COUNT 59 K/MM3 (134-434); RBC 2.79 M/mm3 (4.00-5.60); RDW 17.6 % (11.9-15.9); WHITE BLOOD COUNT 17.4 K/mm3 (4.0-10.0)
--- NOTE | 2017-11-12 08:38 | PN ---
Teaching Attending Note Name of Resident: Heath Varela ATTENDING PHYSICIAN STATEMENT I saw and evaluated the patient. I reviewed the resident's note and discussed the case with the resident. I agree with the resident's findings and plan as documented with exceptions below. SUBJECTIVE: Patient seen and examined. No new complaints. OBJECTIVE: Vital Signs Period Temp Pulse Resp BP Sys/Ventura Pulse Ox Last 24 Hr 97.4 F-98.8 F 57-70 17-20 112-150/43-66 96-96 Intake & Output 11/09/17 11/10/17 11/11/17 11/12/17 23:59 23:59 23:59 23:59 Intake Total 2400 1500 1550 120 Output Total 2500 3600 3900 Balance -100 -2100 -2350 120 General; sitting in bed in no acute distress Chest: CTAB, no rales or wheezing Abdomen: soft, improved distension, NT Extremities:2+ pedal pitting edema, improved from yesterday Active Medications Acetaminophen (Tylenol -) 650 mg PO Q6H PRN PRN Reason: FEVER Last Admin: 11/11/17 10:47 Dose: 650 mg Allopurinol (Zyloprim -) 100 mg PO DAILY [facility] Last Admin: 11/11/17 10:43 Dose: 100 mg Carvedilol (Coreg -) 6.25 mg PO BID [facility] Last Admin: 11/11/17 21:19 Dose: 6.25 mg Darunavir (Prezista -) 600 mg PO BID [facility] Last Admin: 11/11/17 21:20 Dose: 600 mg Finasteride (Proscar -) 5 mg PO DAILY [facility] Last Admin: 11/11/17 10:43 Dose: 5 mg Hydralazine HCl (Apresoline -) 25 mg PO BID [facility] Last Admin: 11/11/17 21:20 Dose: 25 mg Insulin Aspart (Novolog Vial Sliding Scale -) 1 vial SQ BIDAC [facility]; Protocol Last Admin: 11/12/17 06:42 Dose: Not Given Nifedipine (Procardia Xl -) 60 mg PO DAILY [facility] Last Admin: 11/11/17 10:43 Dose: 60 mg Raltegravir (Isentress -) 400 mg PO BID [facility] Last Admin: 11/11/17 21:20 Dose: 400 mg Ranitidine HCl (Zantac -) 150 mg PO 1900 [facility] Last Admin: 11/11/17 21:31 Dose: 150 mg Ritonavir (Norvir -) 100 mg PO BID [facility] Last Admin: 11/11/17 21:19 Dose: 100 mg Sodium Bicarbonate (Sodium Bicarbonate -) 1,300 mg PO TID [facility] Last Admin: 11/12/17 06:41 Dose: 1,300 mg Tamsulosin HCl (Flomax -) 0.4 mg PO BID@0830,2200 [facility] Last Admin: 11/11/17 21:20 Dose: 0.4 mg Laboratory Results - last 24 hr 11/11/17 11/11/17 11/11/17 07:30 07:30 17:12 WBC 13.5 H RBC 2.64 L Hgb 7.6 L Hct 23.7 L MCV 89.8 MCH 28.9 MCHC 32.2 RDW 18.1 H Plt Count 25 L* D MPV 8.8 Absolute Neuts (auto) 0.2 L Neutrophils % 1.2 L Neutrophils % (Manual) 0.0 L Band Neutrophils % 0.0 Lymphocytes % 98.2 H Lymphocytes % (Manual) 90.6 H* Monocytes % 0.6 L D Monocytes % (Manual) 6 D Eosinophils % 0.0 D Eosinophils % (Manual) 0.0 Basophils % 0.0 Basophils % (Manual) 0.0 Myelocytes % (Man) 0 Promyelocytes % (Man) 0 Blast Cells % (Manual) 0 Nucleated RBC % 0 Metamyelocytes 0 Hypochromia 1+ Platelet Estimate Decreased Polychromasia 3+ Poikilocytosis 2+ Anisocytosis 2+ Microcytosis 2+ Macrocytosis 0 Tear Drop Cells 1+ [place] Cells 1+ Sodium 145 Potassium 4.6 Chloride 120 H Carbon Dioxide 13 L Anion Gap 12 BUN 76 H Creatinine 4.2 H Creat Clearance w eGFR 14.31 POC Glucometer 101 Random Glucose 74 Calcium 8.1 L 11/12/17 11/12/17 06:45 07:05 WBC 17.4 H RBC 2.79 L Hgb 7.9 L Hct 24.9 L MCV 89.3 MCH 28.4 MCHC 31.8 L RDW 17.6 H Plt Count 59 L D MPV 7.9 D Absolute Neuts (auto) 0.3 L Neutrophils % 1.6 L Neutrophils % (Manual) Band Neutrophils % Lymphocytes % 97.5 H Lymphocytes % (Manual) Monocytes % 0.8 L Monocytes % (Manual) Eosinophils % 0.1 D Eosinophils % (Manual) Basophils % 0.0 Basophils % (Manual) Myelocytes % (Man) Promyelocytes % (Man) Blast Cells % (Manual) Nucleated RBC % 0 Metamyelocytes Hypochromia Platelet Estimate Polychromasia Poikilocytosis Anisocytosis Microcytosis Macrocytosis Tear Drop Cells [place] Cells Sodium Potassium Chloride Carbon Dioxide Anion Gap BUN Creatinine Creat Clearance w eGFR POC Glucometer 88 Random Glucose Calcium Microbiology 11/04/17 00:30 Blood - Peripheral Venous Blood Culture - Final NO GROWTH AFTER 5 DAYS INCUBATION 11/04/17 00:30 Blood - Peripheral Venous Blood Culture - Final NO GROWTH AFTER 5 DAYS INCUBATION 11/04/17 23:42 Urine - Urine Clean Catch Urine Culture - Final Pseudomonas Aeruginosa Pseudomonas Aeruginosa#2 ASSESSMENT AND PLAN: 67 yom with PMHx of CLL (s/p treatment 2 years ago, recent WBC 50s, being monitored), CKD stage IV (baseline Cr 2.2 in 06/2017), HIV on HAART (last viral load undetectable with CD4 >2000 in ), HCV s/p treatment, cirrhosis with portal hypertension, prior IV Heroine/cocaine use, exsmoker, HTN, Prior NICM last EF 65% in 2015, Cath x 2 with normal coronaries, NIDDM, chronic leg edema, admitted to [facility] in 08/2017 with RICHY/Anemia/possible acute diverticulitis/ abnormal EKG, comes with sepsis and RICHY. -Complicated pseudomonas UTI with left pyelonephritis/Sepsis -Chronic urinary retention, ?etiology -RICHY on CKD stage IV (baseline cr 2.2 in 06/2017, 3.6 on recent d/c on 09/21/2017) -Acute on chronic anemia, suspect multifactorial, from CKD/cirrhosis, cannot r/ o intermittent occult bleed -HIV on HAART -HCV s/p treatment -Cirrhosis with portal hypertension -Acute on chronic thrombocytopenia, suspect from cirrhosis/portal hypertension compounded by sepsis/hydration, ?beta lactam contributory -Prior NICM, recent stress test in 09/2017 -NIDDM -Chronic leg edema -Recent ?mild acute diverticulitis -Prolonged QTc Plan: Cr slowly improving.s/p lasix on 11/11, Renal input noted. Start lasix. Monitor volume status, urine eosinophils neg Zosyn d/aleksandar 11/11 after 8 days. Platelets improved. WBC rising, Likely BM recovering from acute infectious process. Hematology input noted. Trend CBC. Prolonged QTc, not a candidate for oral abx. Continue ortiz, Strict I/os, flomax/finasteride and urology input noted. Discussed with patient, needs outpatient urology follow up in 1 week. s/p 1 unit PRBC, with appropriate response. Abdominal US neg for ascitis. Hold ARB. Renal dosing of meds, avoid nephrotoxins. No gross evidence of bleed, trend H/h. Continue HAART. Continue coreg/nifedipine/hydralazine. DVTPPX with SCDs given thrombocytopenia Dispo d/c in 24-48 hours if renal function continues to improve and no new concerns. No dc needs currently. Plan discussed with patient ,in detail, all questions answered.
[2017-11-12 08:46] LABS: ALBUMIN 3.1 g/dl (3.4-5.0); ALK PHOS 57 U/L (45-117); ANION GAP 10 MMOL/L (8-16); BILIRUBIN,TOTAL 0.2 mg/dL (0.2-1); BLOOD UREA NITROGEN 75 mg/dL (7-18); CALCIUM 8.1 mg/dL (8.5-10.1); CHLORIDE 116 mmol/L (98-107); CO2 20 mmol/L (21-32); GLUCOSE,RANDOM 81 mg/dL (74-106); MAGNESIUM 2.2 mg/dL (1.8-2.4); PHOSPHOROUS 3.9 mg/dL (2.5-4.9); POTASSIUM 4.2 mmol/L (3.5-5.1); SGOT/AST 17 U/L (15-37); SGPT/ALT 19 U/L (13-61); SODIUM 146 mmol/L (136-145); TOT PROT 5.6 g/dl (6.4-8.2)
[2017-11-12] MEDS: TAMSULOSIN HCL 0.4 MG CAP PO SCH ×2 (08:57→21:20)
[2017-11-12] MEDS: NIFEdipine E.R 60 MG TABLET (UD) PO SCH (09:48)
[2017-11-12] MEDS: FINASTERIDE 5 MG TABLET (FP) PO SCH (09:48)
[2017-11-12] MEDS: CARVEDILOL 6.25 MG TABLET (FP) PO SCH ×2 (09:49→21:20)
[2017-11-12] MEDS: ALLOPURINOL 100 MG TABLET (FP) PO SCH (09:49)
[2017-11-12] MEDS: hydrALAZINE HCL 25 MG TABLET (FP) PO SCH ×2 (09:49→21:20)
[2017-11-12] MEDS: RALTEGRAVIR POTASSIUM 400 MG TAB PO SCH ×2 (09:50→21:21)
[2017-11-12] MEDS: DARUNAVIR ETHANOLATE 600 MG TAB PO SCH ×2 (09:50→21:21)
[2017-11-12] MEDS: RILPIVIRINE HCL 25 MG TABLET PO SCH (09:50)
[2017-11-12] MEDS: RITONAVIR 100 MG TABLET PO SCH ×2 (09:50→21:20)
[2017-11-12 10:02] LABS: ANISOCYTOSIS 2+; MACROCYTOSIS 0; PLATELET ESTIMATE DECREASED; TEAR DROP CELLS 1+
--- NOTE | 2017-11-12 16:25 | PN ---
Progress Note, Physician History of Present Illness: Pt seen and examined at bedside. He is awake and alert. He denies shortness of breath. He does complain of lower ext edema. - Current Medication List Current Medications: Active Medications Acetaminophen (Tylenol -) 650 mg PO Q6H PRN PRN Reason: FEVER Last Admin: 11/11/17 10:47 Dose: 650 mg Allopurinol (Zyloprim -) 100 mg PO DAILY [facility] Last Admin: 11/12/17 09:49 Dose: 100 mg Carvedilol (Coreg -) 6.25 mg PO BID [facility] Last Admin: 11/12/17 09:49 Dose: 6.25 mg Darunavir (Prezista -) 600 mg PO BID [facility] Last Admin: 11/12/17 09:50 Dose: 600 mg Finasteride (Proscar -) 5 mg PO DAILY [facility] Last Admin: 11/12/17 09:48 Dose: 5 mg Hydralazine HCl (Apresoline -) 25 mg PO BID [facility] Last Admin: 11/12/17 09:49 Dose: 25 mg Insulin Aspart (Novolog Vial Sliding Scale -) 1 vial SQ [facility]; Protocol Last Admin: 11/12/17 06:42 Dose: Not Given Nifedipine (Procardia Xl -) 60 mg PO DAILY [facility] Last Admin: 11/12/17 09:48 Dose: 60 mg Raltegravir (Isentress -) 400 mg PO BID [facility] Last Admin: 11/12/17 09:50 Dose: 400 mg Ranitidine HCl (Zantac -) 150 mg PO 1900 [facility] Last Admin: 11/11/17 21:31 Dose: 150 mg Ritonavir (Norvir -) 100 mg PO BID [facility] Last Admin: 11/12/17 09:50 Dose: 100 mg Sodium Bicarbonate (Sodium Bicarbonate -) 1,300 mg PO TID [facility] Last Admin: 11/12/17 15:05 Dose: 1,300 mg Tamsulosin HCl (Flomax -) 0.4 mg PO BID@0830,2200 [facility] Last Admin: 11/12/17 08:57 Dose: 0.4 mg - Objective Vital Signs: Vital Signs Temperature 98.2 F 11/12/17 15:23 Pulse Rate 60 11/12/17 15:23 Respiratory Rate 20 11/12/17 15:23 Blood Pressure 118/49 L 11/12/17 15:23 O2 Sat by Pulse Oximetry (%) 100 11/12/17 09:00 Constitutional: Yes: Calm Eyes: Yes: Conjunctiva Clear HENT: Yes: Atraumatic Neck: Yes: Supple Cardiovascular: Yes: S1, S2 Respiratory: Yes: CTA Bilaterally Gastrointestinal: Yes: Soft Genitourinary: Yes: WNL Musculoskeletal: Yes: WNL Edema: Yes Edema: LLE: 1+, RLE: 1+ Neurological: Yes: Oriented Psychiatric: Yes: Oriented Labs: CBC, BMP 11/12/17 07:05 11/12/17 07:05 INR, PTT INR 1.17 (0.83-1.09) H 11/05/17 00:30 Problem List - Problems (1) CKD (chronic kidney disease) Code(s): N18.9 - CHRONIC KIDNEY DISEASE, UNSPECIFIED (2) CLL (chronic lymphocytic leukemia) Code(s): C91.90 - LYMPHOID LEUKEMIA, UNSPECIFIED NOT HAVING ACHIEVED REMISSION (3) Human immunodeficiency virus (HIV) seropositivity Code(s): Z21 - ASYMPTOMATIC HUMAN IMMUNODEFICIENCY VIRUS INFECTION STATUS (4) Sepsis Code(s): A41.9 - SEPSIS, UNSPECIFIED ORGANISM Qualifiers: Sepsis type: sepsis due to unspecified organism Qualified Code(s): A41.9 - Sepsis, unspecified organism (5) Chronic hepatitis C Code(s): B18.2 - CHRONIC VIRAL HEPATITIS C Assessment/Plan Current Medications Generic Name Dose Route Start Last Admin Trade Name Freq PRN Reason Stop Dose Admin Acetaminophen 650 mg 11/05/17 04:54 11/11/17 10:47 Tylenol - PO 650 mg Q6H PRN Administration FEVER Allopurinol 100 mg 11/05/17 10:00 11/12/17 09:49 Zyloprim - PO 100 mg DAILY [facility] Administration Carvedilol 6.25 mg 11/05/17 10:00 11/12/17 09:49 Coreg - PO 6.25 mg BID [facility] Administration Darunavir 600 mg 11/05/17 10:00 11/12/17 09:50 Prezista - PO 600 mg BID [facility] Administration Finasteride 5 mg 11/05/17 10:00 11/12/17 09:48 Proscar - PO 5 mg DAILY [facility] Administration Hydralazine HCl 25 mg 11/05/17 10:00 11/12/17 09:49 Apresoline - PO 25 mg BID [facility] Administration Insulin Aspart 1 vial 11/05/17 07:00 11/12/17 06:42 Novolog Vial Sliding Scale - SQ Not Given BIDAC [facility] Protocol Nifedipine 60 mg 11/05/17 10:00 11/12/17 09:48 Procardia Xl - PO 60 mg DAILY [facility] Administration Raltegravir 400 mg 11/05/17 10:00 11/12/17 09:50 Isentress - PO 400 mg BID [facility] Administration Ranitidine HCl 150 mg 11/07/17 19:00 11/11/17 21:31 Zantac - PO 150 mg 1900 [facility] Administration Ritonavir 100 mg 11/05/17 10:00 11/12/17 09:50 Norvir - PO 100 mg BID [facility] Administration Sodium Bicarbonate 1,300 mg 11/11/17 20:00 11/12/17 15:05 Sodium Bicarbonate - PO 1,300 mg TID [facility] Administration Tamsulosin HCl 0.4 mg 11/05/17 08:30 11/12/17 08:57 Flomax - PO 0.4 mg BID@0830,2200 [facility] Administration Impression 1. CKD 2. urinary retention 3. HIV 4. liver cirrhosis 5. Hep C 6. nephrolothiasis 7. DM 8. BPH 9. HTN 10. CLL 11. anemia Plan - restart lasix - monitor renal function - will likely need procrit for anemia - check iron studies and stool for occult blood - repeat labs in am - elevate legs - cont PO bicarb - maintain ortiz Dr Wells
[2017-11-12] MEDS: FUROSEMIDE 40 MG TABLET (FP) PO SCH (17:15)
--- NOTE | 2017-11-12 17:54 | PN ---
Physical Exam: SUBJECTIVE: Patient seen and examined this AM. He has no complaints and says that he is doing very well today. He is walking well with PT and hoping to go home soon. OBJECTIVE: Vital Signs Period Temp Pulse Resp BP Sys/Ventura Pulse Ox Last 24 Hr 97.5 F-98.8 F 60-73 17-20 115-152/43-58 96-100 GENERAL: A&O, no acute distress HEAD: Normocephalic, atraumatic. EYES: PERRL, no scleral icterus EARS, NOSE, THROAT: oropharynx clear without exudates. Moist mucous membranes. NECK: supple without lymphadenopathy LUNGS: CTA b/l, no crackles or wheezes HEART: Tachycardic with regular rhythm, normal S1 and S2 with systolic murmur ABDOMEN: Soft, obese, nontender to palpation, normoactive bowel sounds MUSCULOSKELETAL: No bony deformities or tenderness EXTREMITIES: 2+ pulses, warm, well-perfused. No peripheral edema. : Ortiz in place, draining pale straw colored urine NEUROLOGICAL: Cranial nerves II-XII grossly intact. Normal speech. Normal Gait observed. PSYCHIATRIC: Cooperative. Good eye contact. Appropriate mood and affect. Laboratory Results - last 24 hr 11/12/17 11/12/17 11/12/17 06:45 07:05 07:05 WBC 17.4 H RBC 2.79 L Hgb 7.9 L Hct 24.9 L MCV 89.3 MCH 28.4 MCHC 31.8 L RDW 17.6 H Plt Count 59 L D MPV 7.9 D Absolute Neuts (auto) 0.3 L Neutrophils % 1.6 L Neutrophils % (Manual) 2.0 L Band Neutrophils % 0.0 Lymphocytes % 97.5 H Lymphocytes % (Manual) 77.0 H* Monocytes % 0.8 L Monocytes % (Manual) 21 H D Eosinophils % 0.1 D Eosinophils % (Manual) 0.0 Basophils % 0.0 Basophils % (Manual) 0.0 Myelocytes % (Man) 0 Promyelocytes % (Man) 0 Blast Cells % (Manual) 0 Nucleated RBC % 0 Metamyelocytes 0 Hypochromia 0 Platelet Estimate Decreased Polychromasia 1+ Poikilocytosis 2+ Anisocytosis 2+ Microcytosis 2+ Macrocytosis 0 Tear Drop Cells 1+ Stomatocytes 1+ Schistocytes 1+ Sodium 146 H Potassium 4.2 Chloride 116 H Carbon Dioxide 20 L Anion Gap 10 BUN 75 H Creatinine 4.0 H Creat Clearance w eGFR 15.14 POC Glucometer 88 Random Glucose 81 Calcium 8.1 L Phosphorus 3.9 Magnesium 2.2 Total Bilirubin 0.2 AST 17 ALT 19 Alkaline Phosphatase 57 Total Protein 5.6 L Albumin 3.1 L Vitamin B12 602 TSH 1.50 D Free T4 1.00 Active Medications Generic Name Dose Route Start Last Admin Trade Name Freq PRN Reason Stop Dose Admin Acetaminophen 650 mg 11/05/17 04:54 11/11/17 10:47 Tylenol - PO 650 mg Q6H PRN Administration FEVER Allopurinol 100 mg 11/05/17 10:00 11/12/17 09:49 Zyloprim - PO 100 mg DAILY [facility] Administration Carvedilol 6.25 mg 11/05/17 10:00 11/12/17 09:49 Coreg - PO 6.25 mg BID [facility] Administration Darunavir 600 mg 11/05/17 10:00 11/12/17 09:50 Prezista - PO 600 mg BID [facility] Administration Finasteride 5 mg 11/05/17 10:00 11/12/17 09:48 Proscar - PO 5 mg DAILY [facility] Administration Furosemide 40 mg 11/12/17 16:30 11/12/17 17:15 Lasix - PO 40 mg DAILY [facility] Administration Hydralazine HCl 25 mg 11/05/17 10:00 11/12/17 09:49 Apresoline - PO 25 mg BID [facility] Administration Insulin Aspart 1 vial 11/05/17 07:00 11/12/17 17:17 Novolog Vial Sliding Scale - SQ Not Given BIDAC [facility] Protocol Nifedipine 60 mg 11/05/17 10:00 11/12/17 09:48 Procardia Xl - PO 60 mg DAILY [facility] Administration Raltegravir 400 mg 11/05/17 10:00 11/12/17 09:50 Isentress - PO 400 mg BID [facility] Administration Ranitidine HCl 150 mg 11/07/17 19:00 11/11/17 21:31 Zantac - PO 150 mg 1900 [facility] Administration Ritonavir 100 mg 11/05/17 10:00 11/12/17 09:50 Norvir - PO 100 mg BID [facility] Administration Sodium Bicarbonate 1,300 mg 11/11/17 20:00 11/12/17 15:05 Sodium Bicarbonate - PO 1,300 mg TID [facility] Administration Tamsulosin HCl 0.4 mg 11/05/17 08:30 11/12/17 08:57 Flomax - PO 0.4 mg BID@0830,2200 [facility] Administration ASSESSMENT/PLAN: 67 yo male with a significant past medical history of HIV, CLL, BPH, DM, Gout, HTN admitted with fever, chills and malaise Sepsis Secondary to Pylonephritis -Febrile (102.6), Tachycardic on admission -Leukocytosis improving, elevation likely baseline with CLL -UA noted, Cultures positive for Pseudomonas -CT Abd/Pelvis noted - 6mm nonobstructing calcification in left renal pole, Perinephric stranding -ID consulted appreciated -Zosyn DC -Clinically much better -DC planning BPH -Mild prostatic enlargement noted on CT A/P -Pt with recent ortiz removal via urology on 11/02/17 which was originally placed for urinary retention -Ortiz in place draining well -Pts urologist is at [facility] and does not come here -Urology consult appreciated - no acute surgical management required at this time Acute on Chronic Kidney Disease -Likely postobstructive secondary to urinary retention and renal calculus -Ortiz placed with relief of urinary retention -Nephrology consult appreciated -Bicarb increased to 1300 mg PO TID -restart Lasix 40 mg PO Daily CLL with Leukocytosis and Thrombocytopenia -Stable, will monitor platelet count, improved from yesterday -Diffuse lymphadenopathy noted on CT Abd/Pelvis DM -Hold home meds -BGMs ACHS -Insulin sliding scale for glycemic control Gout -No acute flareup at this time -Continue maintenance Allopurinol 100 mg PO Daily HTN -Hydralazine 25 mg PO BID -Coreg 6.25 mg PO BID -Procardia 60 mg PO Daily -Lasix 40 mg PO Daily restarted as per nephrology -Blood pressures stable, will continue to monitor HIV -CD4 pending -Raltegravir, Ritonavir, Darunavir DVT Prophylaxis -Mechanical only, hold chemical AC due to low platelet count FEN -Fluids: none -Electrolytes: BMP in AM -Nutrition: Sodium controlled diet Disposition Med/Surg Visit type - Emergency Visit Emergency Visit: Yes ED Registration Date: 11/05/17 Care time: The patient presented to the Emergency Department on the above date and was hospitalized for further evaluation of their emergent condition. - New Patient This patient is new to me today: No - Critical Care Critical Care patient: No
[2017-11-12] MEDS: ACETAMINOPHEN 325 MG TABLET (FP) PO PRN (19:56)
[2017-11-12] MEDS: RANITIDINE HCL 150 MG TABLET (FP) PO SCH (21:23)
[2017-11-13] MEDS: SODIUM BICARBONATE 650 MG TABLET PO SCH ×2 (06:39→14:19)
[2017-11-13] MEDS: INSULIN SLIDING SCALE (NOVOLOG) 1 VIAL SQ SCH (06:41)
[2017-11-13 08:31] LABS: ANION GAP 9 MMOL/L (8-16); BLOOD UREA NITROGEN 73 mg/dL (7-18); CALCIUM 7.9 mg/dL (8.5-10.1); CHLORIDE 114 mmol/L (98-107); CO2 20 mmol/L (21-32); CREATININE 3.8 mg/dL (0.55-1.3); GLUCOSE,RANDOM 86 mg/dL (74-106); SODIUM 144 mmol/L (136-145)
[2017-11-13] MEDS: TAMSULOSIN HCL 0.4 MG CAP PO SCH (08:44)
[2017-11-13 09:02] LABS: BASO % 0.6 % (0-2.0); EOS % 0.2 % (0-4.5); LYMPH % 96.4 % (8-40); MCH 28.4 pg (25.7-33.7); MCHC 31.8 g/dl (32.0-35.9); MEAN CELL VOLUME 89.3 fl (80-96); MEAN PLT VOLUME 8.9 fl (7.5-11.1); MONO % 0.6 % (3.8-10.2); NEUT % 2.2 % (42.8-82.8); PLATELET COUNT 61 K/MM3 (134-434); RDW 17.7 % (11.9-15.9); WHITE BLOOD COUNT 17.1 K/mm3 (4.0-10.0)
[2017-11-13] MEDS ORDERED: PT OWN MED DRAWER 7, Y5N ONE (10:18)
[2017-11-13] MEDS: FINASTERIDE 5 MG TABLET (FP) PO SCH (10:21)
[2017-11-13] MEDS: ALLOPURINOL 100 MG TABLET (FP) PO SCH (10:21)
[2017-11-13] MEDS: DARUNAVIR ETHANOLATE 600 MG TAB PO SCH (10:21)
[2017-11-13] MEDS: CARVEDILOL 6.25 MG TABLET (FP) PO SCH (10:21)
[2017-11-13] MEDS: NIFEdipine E.R 60 MG TABLET (UD) PO SCH (10:21)
[2017-11-13] MEDS: RILPIVIRINE HCL 25 MG TABLET PO SCH (10:21)
[2017-11-13] MEDS: FUROSEMIDE 40 MG TABLET (FP) PO SCH (10:21)
[2017-11-13] MEDS: RITONAVIR 100 MG TABLET PO SCH (10:21)
[2017-11-13] MEDS: hydrALAZINE HCL 25 MG TABLET (FP) PO SCH (10:21)
[2017-11-13] MEDS: RALTEGRAVIR POTASSIUM 400 MG TAB PO SCH (10:22)
[2017-11-13 11:15] LABS: ANISOCYTOSIS 1+; MACROCYTOSIS 1+; PLATELET ESTIMATE DECREASED; TEAR DROP CELLS 1+
[2017-11-13] MEDS: ACETAMINOPHEN 325 MG TABLET (FP) PO PRN (12:07)
--- NOTE | 2017-11-13 14:07 | PN ---
Teaching Attending Note Name of Resident: Heath Varela ATTENDING PHYSICIAN STATEMENT I saw and evaluated the patient. I reviewed the resident's note and discussed the case with the resident. I agree with the resident's findings and plan as documented. SUBJECTIVE:asymptomatic. denies Cp, SOB, fever, chills, dysuria, N/V/C/D OBJECTIVE: Last Vital Signs Temp Pulse Resp BP Pulse Ox 98.0 F 71 18 148/67 100 11/13/17 10:00 11/13/17 10:00 11/13/17 10:00 11/13/17 10:00 11/12/17 09:00 General NAD, Abdomen soft NT/ND obese ASSESSMENT AND PLAN: 67yo M with PMH HIV, CLL, BPH, HTN, CKD presented with fever and chills with sensation of incomplete voiding with sepsis due to pyelo 1. Sepsis due to pyelo due to psuedomonas-afebrile. clinically stable. completed abx course. 2. Acute on CKD- due to sepsis vs retention. baseline Cr 2.2. Cr slowly trending down. which seems to occur on last hospital stay with a slow return to normal. maintain ortiz and encouraged to f/u wtih uro later this week or early next week for ortiz removal. will need close monitoring of renal function with repeat. close renal f/u. 3. Thrombocytopenia- due to CLL.stable. no signs of bleeding 4. HTN- controlled. cont management. lasix re-started on lower dose. 5. BPH- monitor for retention. maintain ortiz with uro outpatient f/u for removal. 6. HIV on HARRT 7. CLL 8. DVT ppx- SCD. hold pharmacolgic anticoag due to platelet count 9. d/c home
[2017-11-13 15:10] VITALS: BP 120/49; PULSE 62; TEMP 97.5
--- NOTE | 2017-11-13 15:59 | PN ---
Progress Note, Physician History of Present Illness: Pt seen and examined at bedside. He is awake and alert. He denies shortness of breath. He feels that his lower ext edema is getting better. - Objective Vital Signs: Vital Signs Temperature 97.5 F L 11/13/17 14:09 Pulse Rate 62 11/13/17 14:09 Respiratory Rate 22 H 11/13/17 14:09 Blood Pressure 120/49 L 11/13/17 14:09 O2 Sat by Pulse Oximetry (%) 98 11/13/17 09:00 Constitutional: Yes: Calm Eyes: Yes: Conjunctiva Clear HENT: Yes: Atraumatic Neck: Yes: Supple Cardiovascular: Yes: S1, S2 Respiratory: Yes: CTA Bilaterally Gastrointestinal: Yes: Soft Genitourinary: Yes: WNL Musculoskeletal: Yes: WNL Edema: Yes Edema: LLE: 1+, RLE: 1+ Neurological: Yes: Oriented Psychiatric: Yes: Oriented Labs: CBC, BMP 11/13/17 06:20 11/13/17 06:00 INR, PTT INR 1.17 (0.83-1.09) H 11/05/17 00:30 Problem List - Problems (1) CKD (chronic kidney disease) Code(s): N18.9 - CHRONIC KIDNEY DISEASE, UNSPECIFIED (2) CLL (chronic lymphocytic leukemia) Code(s): C91.90 - LYMPHOID LEUKEMIA, UNSPECIFIED NOT HAVING ACHIEVED REMISSION (3) Human immunodeficiency virus (HIV) seropositivity Code(s): Z21 - ASYMPTOMATIC HUMAN IMMUNODEFICIENCY VIRUS INFECTION STATUS (4) Chronic hepatitis C Code(s): B18.2 - CHRONIC VIRAL HEPATITIS C Assessment/Plan Impression 1. CKD 2. urinary retention 3. HIV 4. liver cirrhosis 5. Hep C 6. nephrolothiasis 7. DM 8. BPH 9. HTN 10. CLL 11. 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
--- NOTE | 2017-11-13 17:15 | DS ---
Physical Exam: SUBJECTIVE: Patient seen and examined this AM. He says that he is doing well and is ready to go home. He has no complaints and no acute events overnight OBJECTIVE: Vital Signs Period Temp Pulse Resp BP Sys/Ventura Pulse Ox Last 24 Hr 97.5 F-98.7 F 61-71 18-22 112-148/49-67 98 PHYSICAL EXAM GENERAL: A&O, no acute distress HEAD: Normocephalic, atraumatic. EYES: PERRL, no scleral icterus EARS, NOSE, THROAT: oropharynx clear without exudates. Moist mucous membranes. NECK: supple without lymphadenopathy LUNGS: CTA b/l, no crackles or wheezes HEART: Tachycardic with regular rhythm, normal S1 and S2 with systolic murmur ABDOMEN: Soft, obese, nontender to palpation, normoactive bowel sounds MUSCULOSKELETAL: No bony deformities or tenderness EXTREMITIES: 2+ pulses, warm, well-perfused. No peripheral edema. : Lara in place, draining pale straw colored urine NEUROLOGICAL: Cranial nerves II-XII grossly intact. Normal speech. Normal Gait observed. PSYCHIATRIC: Cooperative. Good eye contact. Appropriate mood and affect. LABS Laboratory Results - last 24 hr 11/05/17 11/12/17 11/12/17 06:30 07:05 17:17 WBC 19.3 H RBC Hgb Hct 24.3 L MCV MCH MCHC RDW Plt Count MPV Absolute Neuts (auto) Absolute Lymphs (auto) 17.9 H Neutrophils % Neutrophils % (Manual) Band Neutrophils % Lymphocytes % Lymphocytes % (Manual) Monocytes % Monocytes % (Manual) Eosinophils % Eosinophils % (Manual) Basophils % Basophils % (Manual) Myelocytes % (Man) Promyelocytes % (Man) Blast Cells % (Manual) Nucleated RBC % Lymphocytes 93 Metamyelocytes Nucleated RBCs TNP Hypochromia Platelet Estimate Polychromasia Poikilocytosis Anisocytosis Microcytosis Macrocytosis Tear Drop Cells Sodium Potassium Chloride Carbon Dioxide Anion Gap BUN Creatinine Creat Clearance w eGFR POC Glucometer 124 Random Glucose Calcium Folate 1443 Folate Hemolysate 350.7 Absolute CD3 Count TNP % CD3+ Lymphocytes Comment: Absolute CD4 [place] TNP % CD4+ Lymphocyte Comment: CD4/CD8 Ratio TNP % CD8+ Lymphocyte Comment: Absolute CD8 Count TNP 11/12/17 11/13/17 11/13/17 21:16 06:00 06:20 WBC 17.1 H RBC 2.80 L Hgb 8.0 L Hct 25.0 L MCV 89.3 MCH 28.4 MCHC 31.8 L RDW 17.7 H Plt Count 61 L MPV 8.9 D Absolute Neuts (auto) 0.4 L Absolute Lymphs (auto) Neutrophils % 2.2 L Neutrophils % (Manual) 2.1 L Band Neutrophils % 0.0 Lymphocytes % 96.4 H Lymphocytes % (Manual) 93.7 H* D Monocytes % 0.6 L Monocytes % (Manual) 1 L D Eosinophils % 0.2 D Eosinophils % (Manual) 0.0 Basophils % 0.6 D Basophils % (Manual) 0.0 Myelocytes % (Man) 0 Promyelocytes % (Man) 0 Blast Cells % (Manual) 0 Nucleated RBC % 0 Lymphocytes Metamyelocytes 0 Nucleated RBCs Hypochromia 1+ Platelet Estimate Decreased Polychromasia 0 Poikilocytosis 1+ Anisocytosis 1+ Microcytosis 1+ Macrocytosis 1+ Tear Drop Cells 1+ Sodium 144 Potassium 4.0 Chloride 114 H Carbon Dioxide 20 L Anion Gap 9 BUN 73 H Creatinine 3.8 H Creat Clearance w eGFR 16.07 POC Glucometer 124 Random Glucose 86 Calcium 7.9 L Folate Folate Hemolysate Absolute CD3 Count % CD3+ Lymphocytes Absolute CD4 [place] % CD4+ Lymphocyte CD4/CD8 Ratio % CD8+ Lymphocyte Absolute CD8 Count 11/13/17 06:39 WBC RBC Hgb Hct MCV MCH MCHC RDW Plt Count MPV Absolute Neuts (auto) Absolute Lymphs (auto) Neutrophils % Neutrophils % (Manual) Band Neutrophils % Lymphocytes % Lymphocytes % (Manual) Monocytes % Monocytes % (Manual) Eosinophils % Eosinophils % (Manual) Basophils % Basophils % (Manual) Myelocytes % (Man) Promyelocytes % (Man) Blast Cells % (Manual) Nucleated RBC % Lymphocytes Metamyelocytes Nucleated RBCs Hypochromia Platelet Estimate Polychromasia Poikilocytosis Anisocytosis Microcytosis Macrocytosis Tear Drop Cells Sodium Potassium Chloride Carbon Dioxide Anion Gap BUN Creatinine Creat Clearance w eGFR POC Glucometer 86 Random Glucose Calcium Folate Folate Hemolysate Absolute CD3 Count % CD3+ Lymphocytes Absolute CD4 [place] % CD4+ Lymphocyte CD4/CD8 Ratio % CD8+ Lymphocyte Absolute CD8 Count IMAGING: CXR: No evidence of active pulmonary disease CT Abdomen/Pelvis: Hepatosplenomegaly, Extensive intraabodminal and pelvic lymphadenopathy, left nephrolithiasis with perinephric stranding, no evidence of obstruction, Air within urinary bladder, mild prostatic enlargement. Renal/Bladder U/S: mildly atrophic kidneys with no signs of hydronephrosis, some urinary retention Abdominal U/S: significant splenomegaly, no ascites HOSPITAL COURSE: Date of Admission:11/05/17 Date of Discharge: 11/13/17 67 year old male with PMH of HIV, CLL, BPH, recent hospitalization here for diverticulitis in September and hospitalization due to infection of unknown type September-October at [facility] who presented to the ED with fever, chills, malaise. He also reported urinary frequency, decreased stream and some urinary incontinence since his Lara was removed at his urologist 4 days prior to admission. He was found to have a UTI with concern for pyelo secondary to nephrolithiasis with perinephric stranding. He was seen by ID, urine cultures grew Pseudomonas, and he treated with Zosyn. He was seen by nephrology as his renal function was noted to be worsening. His BUN/Cr plateaued and began to improve. He was deemed medically safe for discharge with outpatient follow up by urology and primary for monitoring of renal function. Minutes to complete discharge: 40 Discharge Summary Reason For Visit: HUMAN IMMUODEFICIENCY VIRUS SEROPOSITIVITY/FEVER Condition: Good - Instructions Diet, Activity, Other Instructions: You were admitted to the hospital with a urinary tract infection that likely spread to your kidney. You were found to be retaining urine and unable to empty your bladder which is a likely cause of the infection. You were treated with IV antibiotics and the infection resolved. Your kidney numbers, however, were elevated, so you were seen by a wildlife science professor (kidney doctor). Your kidney numbers (BUN and Creatinine) are improving now each day and you are medically safe to be discharged home. You are being discharged with the Lara catheter still in your bladder, and it is important that you follow up with your urologist within one week. You were found to have a kidney stone in your left kidney and were seen by a urologist here who recommended no surgical management at this time. Medications: Your Hydralazine was changed to 25mg TWICE PER DAY. While on this in addition to your other blood pressure medications (Coreg 6.125mg TWICE DAILY and Procardia 60mg ONCE DAILY), you have had controlled pressures. Continue your immune-boosting medications as they have been prescribed You should follow up with your primary care physician in one week. We recommend that they check a BMP in order to check the BUN and Creatinine to verify that your kidney numbers continue to resolve. You should follow up with your urologist within one week in the office for further management of your urinary retention and management of your Lara catheter. Please follow-up with a Manager Business (Kidney doctor). If you do not have one Dr. Wells's office information has been provided. Please follow-up with your infectious disease doctor. If you do not have one, Dr. Bustillos's office number has been provided in the packet If you begin to have severe abdominal pain, high fevers, or notice deidra blood in your catheter, you should call your doctor or return to the emergency department immediately. Referrals: Deepika Bustillos MD [Staff Physician] - Gopal Wells MD [Staff Physician] - Disposition: HOME - Home Medications Comprehensive Discharge Medication List: Ambulatory Orders Ritonavir [Norvir] 100 mg PO BID #0 tablet 01/07/13 Allopurinol [Zyloprim -] 100 mg PO DAILY 09/01/15 Carvedilol [Coreg -] 6.25 mg PO BID 09/01/15 Furosemide [Lasix -] 80 mg PO DAILY 09/01/15 Nifedipine [Nifedical Xl] 60 mg PO DAILY 09/01/15 Raltegravir [Isentress] 400 mg PO BID 09/01/15 Rilpivirine HCl [Edurant] 25 mg PO DAILY 09/01/15 Darunavir Ethanolate [Prezista -] 600 mg PO BID 07/09/16 Ranitidine [Zantac -] 150 mg PO DAILY 14 Days tablet 09/21/17 Tamsulosin HCl [Flomax -] 0.4 mg PO BID 14 Days cap.er.24h 09/21/17 Finasteride [Proscar -] 5 mg PO DAILY 11/05/17 Sitagliptin Phosphate [Januvia] 25 mg PO DAILY 11/05/17 Sodium Bicarbonate - 650 mg PO BID 11/05/17 hydrALAZINE HCL [Apresoline -] 25 mg PO BID tablet 11/13/17 This patient is new to me today: No Emergency Visit: Yes ED Registration Date: 11/05/17 Care time: The patient presented to the Emergency Department on the above date and was hospitalized for further evaluation of their emergent condition. Critical Care patient: No - Discharge Referral Referred to [facility] No
== END 2017-11-13 15:48 | disposition home or self-care (01) | DRG 872 ==
LOC: JER 22:42 → JERBED 11-05 00:57 → J5S 11-05 15:01
PROVIDERS: ADMIT Internal Medicine; ATTEND Internal Medicine
PROC: 30233N1 Transfusion of Nonautologous Red Blood Cells into Peripheral Vein, Percutaneous Approach (ICD-10-PCS; principal; 2017-11-06)
DX: A41.9 Sepsis, unspecified organism (principal); C91.10 Chronic lymphocytic leukemia of B-cell type not having achieved remission; N17.9 Acute kidney failure, unspecified; N18.4 Chronic kidney disease, stage 4 (severe); K76.6 Portal hypertension; N39.0 Urinary tract infection, site not specified; I42.9 Cardiomyopathy, unspecified; E87.2 Acidosis; N40.1 Benign prostatic hyperplasia with lower urinary tract symptoms; I12.9 Hypertensive chronic kidney disease with stage 1 through stage 4 chronic kidney disease, or unspecified chronic kidney disease; B96.5 Pseudomonas (aeruginosa) (mallei) (pseudomallei) as the cause of diseases classified elsewhere; E11.22 Type 2 diabetes mellitus with diabetic chronic kidney disease; D64.9 Anemia, unspecified; R33.8 Other retention of urine; B18.2 Chronic viral hepatitis C; D35.01 Benign neoplasm of right adrenal gland; R16.1 Splenomegaly, not elsewhere classified; R16.0 Hepatomegaly, not elsewhere classified; K74.60 Unspecified cirrhosis of liver; D69.6 Thrombocytopenia, unspecified; M10.9 Gout, unspecified; D72.829 Elevated white blood cell count, unspecified; Z21 Asymptomatic human immunodeficiency virus [HIV] infection status; Z87.891 Personal history of nicotine dependence; I45.81 Long QT syndrome; N20.0 Calculus of kidney
CPT/HCPCS: 36415; 36430; 71045-TC-FY; 74176-TC; 76705-TC; 76775-TC; 76856-TC; 80048; 80053; 81003; 81015; 82436; 82570; 82607; 82747; 82962; 83605; 83735; 84100; 84133; 84156; 84300; 84439; 84443; 84484; 85014; 85025; 85027; 85610; 85730; 86359; 86360; 86850; 86900; 86901; 86922; 87040; 87086; 87186; 87205; 93005; 93010; 97116-GP; 97161-GP; 99285-25; J0131; J7030; P9038; P9058

== ENCOUNTER 2017-12-02 15:36 | Inpatient (IN) | payer OTHER ==
--- NOTE | 2017-12-02 16:18 | PDOC ---
History of Present Illness - General Chief Complaint: Pain Stated Complaint: FEVER/SHORTNESS OF BREATH Time Seen by Provider: 12/02/17 16:18 - History of Present Illness Initial Comments: 12/02/17 17:40 The patient is a 67 year old male with a history of HTN, DM, HIV last CD4 200s, CLL, who presents for evaluation of fevers, generalized weakness, scrotal and penile swelling and pain. The patient states that he has been experiencing worsening fevers, generalized weakness and scrotal/penile swelling and pain over the past 1 week prompting his presentation to the ED for further evaluation. He states that he has an indewelling ortiz catheter that has been in place for 3 months and he noted pus coming from his urethra over the past few days. He otherwise denies chest pain, SOB, nausea, vomiting, abdominal pain , or changes with bowel movements. Past History - Past Medical History Allergies/Adverse Reactions: Allergies Allergy/AdvReac Type Severity Reaction Status Date / Time lactose AdvReac Verified 12/02/17 15:50 Home Medications: Ambulatory Orders Ritonavir [Norvir] 100 mg PO BID #0 tablet 01/07/13 Allopurinol [Zyloprim -] 100 mg PO DAILY 09/01/15 Carvedilol [Coreg -] 6.25 mg PO BID 09/01/15 Furosemide [Lasix -] 80 mg PO DAILY 09/01/15 Nifedipine [Nifedical Xl] 60 mg PO DAILY 09/01/15 Raltegravir [Isentress] 400 mg PO BID 09/01/15 Rilpivirine HCl [Edurant] 25 mg PO DAILY 09/01/15 Darunavir Ethanolate [Prezista -] 600 mg PO BID 07/09/16 Ranitidine [Zantac -] 150 mg PO DAILY 14 Days tablet 09/21/17 Tamsulosin HCl [Flomax -] 0.4 mg PO BID 14 Days cap.er.24h 09/21/17 Finasteride [Proscar -] 5 mg PO DAILY 11/05/17 Sitagliptin Phosphate [Januvia] 25 mg PO DAILY 11/05/17 Sodium Bicarbonate - 650 mg PO BID 11/05/17 hydrALAZINE HCL [Apresoline -] 25 mg PO BID tablet 11/13/17 Anemia: Yes Asthma: No Cancer: Yes (lymphacystic leukemia) Cardiac Disorders: Yes CVA: No COPD: No CHF: No DVT: No Dementia: No Diabetes: Yes GI Disorders: No Disorders: No HTN: Yes Hypercholesterolemia: No Kidney Stones: Yes Liver Disease: Yes (cirrhosis) Seizures: No Thyroid Disease: No - Surgical History Abdominal Surgery: No Appendectomy: No Cardiac Surgery: No Cholecystectomy: No Gastric Stapling: No Lung Surgery: No Neurologic Surgery: No Orthopedic Surgery: No - Immunization History Td Vaccination: Yes Immunization Up to Date: Yes - Suicide/Smoking/Psychosocial Hx Smoking Status: Yes Smoking History: Never smoked Years of Tobacco Use: 25 Have you smoked in the past 12 months: No Number of Cigarettes Smoked Daily: 0 If you are a former smoker, when did you quit?: > 25 yrs ago Cigars Per Day: 0 'Breaking Loose' booklet given: 12/26/12 Hx Alcohol Use: No Drug/Substance Use Hx: No Substance Use Type: None Hx Substance Use Treatment: No Review of Systems - Review of Systems Comments:: 12/02/17 17:59 Constitutional: Fevers, chills, body aches, fatigue HEENT: No Rhinorrhea, nasal congestion, visual changes Cardiovascular: No chest pain, syncope, palpitations, lightheadedness Respiratory: No Cough, SOB, Hemoptysis, Gastrointestinal: No Abdominal pain, Nausea, Vomiting, Constipation, Diarrhea, Melena Genitourinary: Scrotal swelling, Penile Swelling. Scrotal pain, Penile pain. Urethral discharge. No Dysuria, Frequency, Urgency, Hesitancy, Hematuria, Flank pain Musculoskeletal: No Myalgia, arthralgia Skin: No rashes, itching, bruising, pallor Neurologic: No Headache, Dizziness, Numbness, Weakness, or Tingling Psychiatric: No Hallucinations. No SI or HI *Physical Exam - Vital Signs Last Vital Signs Temp Pulse Resp BP Pulse Ox 103 F H 98 H 18 134/50 L 98 12/02/17 15:46 12/02/17 15:46 12/02/17 15:46 12/02/17 15:46 12/02/17 15:46 - Physical Exam Comments: 12/02/17 18:01 General Appearance: Nourished. In Mild Apparent Distress HEENT: No Pharyngeal Erythema, Tonsillar Exudate, Tonsillar Erythema Neck: No Cervical Lymphadenopathy Respiratory/Chest: Lungs Clear, Normal Breath Sounds. No Crackles, Rales, Rhonchi, Wheezing Cardiovascular: Regular Rhythm, Regular Rate. No Murmur, Gallops, Rubs Gastrointestinal/Abdominal: Distended abdomen, Normal Bowel Sounds, Soft. No Guarding, Rebound, Tenderness Genital Exam: Penile and scrotal edema noted with pus noted from the urethral meatus around the ortiz catheter. Tenderness to palpation with notable fluid within the scrotum. No necrotic changes noted on exam. Musculoskeletal: No CVA Tenderness Extremity: Normal Capillary Refill Integumentary: Normal Color, Dry, Warm Neurologic: Fully Oriented, Alert, Normal Mood/Affect, Normal Response, ED Treatment Course - LABORATORY CBC & Chemistry Diagram: 12/02/17 16:55 12/02/17 16:55 Medical Decision Making - Medical Decision Making 12/02/17 18:02 The patient is a 67 year old male with a history of HTN, DM, HIV last CD4 200s, CLL, who presents for evaluation of fevers, generalized weakness, scrotal and penile swelling and pain. Differential includes but is not limited to: Sepsis, UTI, Fornier's Gangrene, Infectious, Metabolic Derangement. Given the patient' s history and physical exam, we will obtain a cbc, cmp, type and screen, coags, ua, urine culture, troponin, chest plain film, ekg, scrotal US, CT abdomen/ pelvis to evaluate further. We discussed the case with urology who agrees with the current management plan. We will treat the patient with iv fluids, tylenol , vanc, zosyn and continue to monitor and reassess while here in the ED. 12/02/17 23:49 CBC demonstrates a wbc to 20. CMP demonstrates a creatinine of 4.1. Ua demonstrates positive leuk esterase with elevated wbc consistent with UTI. Lactic acid is elevated to 3.1. CT abdomen/pelvis is unremarkable besides a thickened gallbladder wall concerning for choleysititis. We will obtain an US to evaluate further. We discussed the case with the admitted team who accepted the patient for admission. *DC/Admit/Observation/Transfer Diagnosis at time of Disposition: Renal insufficiency, CLL/SLL Sepsis Qualifiers: Sepsis type: sepsis due to unspecified organism Qualified Code(s): A41.9 - Sepsis, unspecified organism UTI (urinary tract infection) Qualifiers: Urinary tract infection type: site unspecified Hematuria presence: without hematuria Qualified Code(s): N39.0 - Urinary tract infection, site not specified - Discharge Dispostion Condition at time of disposition: Stable Decision to Admit order: Yes - Referrals Referrals: Justin Matos MD [Primary Care Provider] - - Patient Instructions - Post Discharge Activity
[2017-12-02] MEDS ORDERED: ACETAMINOPHEN 1000 MG/100 ML VIAL (NON FORMULARY) IVPB ONE ×2 (16:46→22:55)
[2017-12-02] MEDS ORDERED: SODIUM CHLORIDE 1,000 ML IV STA (16:46)
[2017-12-02 17:11] LABS: EOS % 0.1 % (0-4.5); HEMATOCRIT 24.5 % (35.4-49); HEMOGLOBIN 7.8 GM/dL (11.7-16.9); LYMPH % 96.9 % (8-40); MCH 28.4 pg (25.7-33.7); MEAN CELL VOLUME 88.6 fl (80-96); MEAN PLT VOLUME 8.3 fl (7.5-11.1); MONO % 0.2 % (3.8-10.2); NEUT % 2.8 % (42.8-82.8); PLATELET COUNT 96 K/MM3 (134-434); RBC 2.76 M/mm3 (4.00-5.60); RDW 17.5 % (11.9-15.9); WHITE BLOOD COUNT 20.2 K/mm3 (4.0-10.0)
[2017-12-02 17:17] LABS: VENOUS PC02 24.8 mmHg (38-52); VENOUS PH 7.43 (7.32-7.42)
[2017-12-02] MEDS ORDERED: PIPERACILLIN/TAZOB 4.5 GM 4.5 GM in DEXTROSE 5%-WATER 100 ML IVPB ONE (17:22)
[2017-12-02] MEDS ORDERED: VANCOMYCIN 1 GRAM (PRE-DOCKED) 1,000 MG/250 ML BAG IVPB ONE ×2 (17:22→17:56)
[2017-12-02 17:23] LABS: INR 1.28 (0.83-1.09); PROTHROMBIN TIME (PATIENT) 15.1 SEC (9.7-13.0)
[2017-12-02 17:26] LABS: ACTIVATED PTT 26.7 SECONDS (25.2-36.5)
[2017-12-02 17:53] LABS: ALK PHOS 85 U/L (45-117); ANION GAP 13 MMOL/L (8-16); BILIRUBIN,TOTAL 0.5 mg/dL (0.2-1); BLOOD UREA NITROGEN 76 mg/dL (7-18); CALCIUM 7.9 mg/dL (8.5-10.1); CHLORIDE 104 mmol/L (98-107); CO2 17 mmol/L (21-32); GLUCOSE,RANDOM 294 mg/dL (74-106); POTASSIUM 4.8 mmol/L (3.5-5.1); SGOT/AST 15 U/L (15-37); SGPT/ALT 17 U/L (13-61); SODIUM 135 mmol/L (136-145); TOT PROT 5.8 g/dl (6.4-8.2)
[2017-12-02] MEDS ORDERED: ACETAMINOPHEN INJECTION 100 ML IVPB ONE ×2 (17:55→22:57)
[2017-12-02] MEDS ORDERED: PIPERACILLIN/TAZOB 4.5 GM 4.5 GM/100 ML BAG IVPB ONE (17:56)
--- NOTE | 2017-12-02 18:19 | PDOC ---
Attending Attestation - Resident Resident Name: Luis Fernando Chavez - ED Attending Attestation I have performed the following: I have examined & evaluated the patient, The case was reviewed & discussed with the resident, I agree w/resident's findings & plan, Exceptions are as noted - HPI HPI: 12/02/17 18:12 The patient is a 67-year-old male with past medical history significant for CLL (treatment at [facility]), HIV (with last known CD4 count around 200, not compliant with follow up appointments at [facility]), DM, CAD, HTN, BPH (w/ indwelling ortiz for the past 3 months) and DM presents to the emergency department with worsening generalized weakness, fevers for 1 week and penile discharge. The patient presents with purulent penile discharge with noted pus in and around the ortiz for the past week, denies bloody discharge. The patient states associated concern of a month of penile and around the shaft pain with swelling. The patient reports associated symptoms of generalized weakness, fever , and chills. The patient was recently admitted for UTI and sepsis. Denies chest pain, shortness of breath, abdominal pain, nausea, vomiting, diarrhea, or constipation. Allergies: NKDA, lactose. Social history: Former tobacco, alcohol and recreational drug user. Surgical history: L axillary LN removed (3 years ago) and prior cystoscopy PCP: follows up at [facility]. - Physicial Exam PE: 12/02/17 18:19 GENERAL: Awake, alert, and fully oriented, in no acute distress. Pale in appearance. HEAD: No signs of trauma EYES: Sclera anicteric, conjunctiva clear ENT: Oropharynx clear without exudates. Moist mucosa NECK: Normal ROM, supple, no lymphadenopathy, JVD, or masses LUNGS: Breath sounds equal, clear to auscultation bilaterally. No wheezes, and no crackles HEART: Regular rate and rhythm, normal S1 and S2, no murmurs, rubs or gallops ABDOMEN: Nontender, +distention pt states is baseline. No rebound or guarding : diffuse penile and scrotal watery edema, does not extend to perineum. No crepitus. Diffuse penile and scrotal ttp. Purulent fluid around the catheter at the urethral meatus. No open wounds otherwise. EXTREMITIES: 2+ L>R pitting edema, no ttp, pt states asymmetry and edema is chronic NEUROLOGICAL: Normal speech, cranial nerves intact, 5/5 strength in all 4 extremities, normal sensation to light touch in all 4 extremities SKIN: Warm, Dry, normal turgor, no rashes or lesions noted. - Medical Decision Making 12/02/17 18:24 67yo M with MMP including DM, BPH with chronic ortiz p/w fever to 103, scrotal/ penile pain. DDx includes rosalba's gangrene vs UTI. Urology urgently c/s, recommends CT of the pelvis. Pt covered with Luis Enrique, Vanc. US pending. Will admit.
[2017-12-02 18:38] LABS: URINE APPEARANCE CLOUDY; URINE BILIRUBIN NEGATIVE (<2.0 mg/dL); URINE COLOR DKYELLOW; URINE GLUCOSE (UA) 1+ (NEGATIVE); URINE KETONE NEGATIVE (NEGATIVE); URINE LEUK ESTERASE 2+ (NEGATIVE); URINE NITRITE NEGATIVE (NEGATIVE); URINE PROTEIN 3+ (NEGATIVE); URINE UROBILINOGEN NEGATIVE mg/dL (0.2-1.0)
[2017-12-02 18:45] LABS: URINE MUCUS MANY
[2017-12-02 21:18] LABS: ANISOCYTOSIS 1+; PLATELET ESTIMATE DECREASED
[2017-12-02] MEDS ORDERED: IBUPROFEN 800 MG/8 ML IJ IVPB ONE ×2 (23:18→23:51)
--- NOTE | 2017-12-03 00:22 | HP ---
CHIEF COMPLAINT: penile swelling/pain PCP: at [facility] HISTORY OF PRESENT ILLNESS: 67M w/ pmhx of HTN, DM, HIV, CLL, cirrhosis, CKD, chronic anemia, BPH, Hep C (s/ p Ramona elizabeth) presented to the ED with complaints of fever, generalized weakness , scrotal and penile swelling. Pt reports that he had a ortiz catheter for the past 3 months in which it has only been changed 1 time. He admits to gradually worsening penile and scrotal swelling with discharge at the urethral meatus, as well as in the ortiz. He reports that he follows up with his urologist regularly and had an appointment to have a cystoscopy done tomorrow, but he was in too much pain and subsequently came to the hospital for treatment. Admits to some sob whenever he feels sick. Denies headaches/dizziness, chest pain, abd pain, constipation/diarrhea, leg swelling, problems going to the bathroom. Of note, pt was recently admitted to the hospital 11/05/17 and treated for UTI with urine culture + for Pseudomonas aeruginosa. ER course was notable for: (1) T 102.8, WBC 20.2, H/H 7.8/24.5, Pl 96, BUN/Cr 76/4, Lac 3.1 --> 1.4 (2) U/A showed 3+ Pro, 2+ LE, WBC 58, RBC 12; Duplex neg for b/l DVT ([place] ) (2) Vanc 1g, Zosyn 4.5gm given (3) uro consult, urine/blood cx done, scrotal u/s and GB u/s ordered Recent Travel: Denies PAST MEDICAL HISTORY: As per HPI PAST SURGICAL HISTORY: L axillary LN removed (3 years ago) and prior cystoscopy Social History: Smoking: Former smoker x28 years ago Alcohol: Former, x28 years ago Drugs: Former, x28 years ago Family History: Denies Allergies lactose Adverse Reaction (Verified 12/02/17 15:50) HOME MEDICATIONS: Home Medications Medication Instructions Recorded Ritonavir [Norvir] 100 mg PO BID #0 tablet 01/07/13 Allopurinol [Zyloprim -] 100 mg PO DAILY 09/01/15 Carvedilol [Coreg -] 6.25 mg PO BID 09/01/15 Furosemide [Lasix -] 80 mg PO DAILY 09/01/15 Nifedipine [Nifedical Xl] 60 mg PO DAILY 09/01/15 Raltegravir [Isentress] 400 mg PO BID 09/01/15 Rilpivirine HCl [Edurant] 25 mg PO DAILY 09/01/15 Darunavir Ethanolate [Prezista -] 600 mg PO BID 07/09/16 Ranitidine [Zantac -] 150 mg PO DAILY 14 Days tablet 09/21/17 Tamsulosin HCl [Flomax -] 0.4 mg PO BID 14 Days cap.er.24h 09/21/17 Finasteride [Proscar -] 5 mg PO DAILY 11/05/17 Sitagliptin Phosphate [Januvia] 25 mg PO DAILY 11/05/17 Sodium Bicarbonate - 650 mg PO BID 11/05/17 hydrALAZINE HCL [Apresoline -] 25 mg PO BID tablet 11/13/17 REVIEW OF SYSTEMS CONSTITUTIONAL: fever, chills, diaphoresis, generalized weakness Absent: malaise, loss of appetite, weight change HEENT: Absent: rhinorrhea, nasal congestion, throat pain, throat swelling, difficulty swallowing, mouth swelling CARDIOVASCULAR: Absent: chest pain, syncope, palpitations, irregular heart rate, lightheadedness , peripheral edema RESPIRATORY: shortness of breath Absent: cough, dyspnea with exertion, orthopnea GASTROINTESTINAL: abdominal distension Absent: abdominal pain, nausea, vomiting, diarrhea, constipation GENITOURINARY: genital pain, white discharge Absent: dysuria, frequency, urgency, hesitancy, hematuria, flank pain, MUSCULOSKELETAL: Absent: myalgia, arthralgia, joint swelling, back pain, neck pain SKIN: Absent: rash, itching, pallor HEMATOLOGIC/IMMUNOLOGIC: Absent: easy bleeding, easy bruising, lymphadenopathy ENDOCRINE: Absent: unexplained weight gain, unexplained weight loss NEUROLOGIC: Absent: headache, focal weakness or paresthesias, dizziness, unsteady gait, seizure, bladder or bowel incontinence PHYSICAL EXAMINATION Vital Signs - 24 hr 12/02/17 12/02/17 12/02/17 15:46 17:00 19:30 Temperature 103 F H Pulse Rate 98 H Pulse Rate [ 80 Apical] Respiratory 18 17 Rate Blood Pressure 134/50 L Blood Pressure 128/58 L [Right Arm] O2 Sat by Pulse 98 98 97 Oximetry (%) 12/02/17 12/02/17 19:48 22:45 Temperature 102.8 F H Pulse Rate Pulse Rate [ 80 Apical] Respiratory 17 Rate Blood Pressure Blood Pressure 124/72 [Right Arm] O2 Sat by Pulse 97 97 Oximetry (%) GENERAL: AAOx3. HEENT: AT/NC. EOMI. LEONCIO. Moist mucus membranes. NECK: Supple, no LAD/JVD. LUNGS: Tachypneic. Crackles in b/l lower lung bases. Dull to percussion in b/l lung bases. Symmetric chest rise. HEART: Normal S1, S2. 3+ systolic murmur in apex. PMI noted, non-displaced. ABDOMEN: Soft, NT. Distended. Hepatomegaly noted. +BS in all 4 Q's. No masses or bruits noted. (-) shifting dullness. : Ortiz catheter in place. L scrotal swelling. Generalized penile swelling noted. MUSCULOSKELETAL: LLE swelling. No pedal edema. 5/5 muscle strength in b/l u/l extremities. NEUROLOGICAL: Normal speech. CN II-XII intact. B/L sensation intact. PSYCHIATRIC: Cooperative. Good eye contact. Appropriate mood and affect. SKIN: Warm, dry, normal turgor, normal capillary refill. Laboratory Results - last 24 hr 12/02/17 12/02/17 12/02/17 16:55 16:55 16:55 WBC 20.2 H RBC 2.76 L Hgb 7.8 L Hct 24.5 L MCV 88.6 MCH 28.4 MCHC 32.0 RDW 17.5 H Plt Count 96 L D MPV 8.3 Absolute Neuts (auto) 0.6 L Neutrophils % 2.8 L Neutrophils % (Manual) No Result Required. Lymphocytes % 96.9 H Monocytes % 0.2 L Eosinophils % 0.1 Basophils % 0.0 Nucleated RBC % 0 Hypochromia 2+ Platelet Estimate Decreased Platelet Comment No clumping noted Polychromasia 1+ Poikilocytosis 1+ Anisocytosis 1+ Microcytosis 1+ PT with INR 15.10 H INR 1.28 H PTT (Actin FS) 26.7 VBG pH 7.43 H POC VBG pCO2 24.8 L POC VBG pO2 75.0 H D Mixed VBG HCO3 16.1 L Sodium Potassium Chloride Carbon Dioxide Anion Gap BUN Creatinine Creat Clearance w eGFR Random Glucose Lactic Acid Calcium Total Bilirubin AST ALT Alkaline Phosphatase Troponin I Total Protein Albumin Urine Color Urine Appearance Urine pH Ur Specific [place] Urine Protein Urine Glucose (UA) Urine Ketones Urine Blood Urine Nitrite Urine Bilirubin Urine Urobilinogen Ur Leukocyte Esterase Urine WBC (Auto) Urine RBC (Auto) Urine Mucus Blood Type Antibody Screen Crossmatch 12/02/17 12/02/17 12/02/17 16:55 16:55 16:55 WBC RBC Hgb Hct MCV MCH MCHC RDW Plt Count MPV Absolute Neuts (auto) Neutrophils % Neutrophils % (Manual) Lymphocytes % Monocytes % Eosinophils % Basophils % Nucleated RBC % Hypochromia Platelet Estimate Platelet Comment Polychromasia Poikilocytosis Anisocytosis Microcytosis PT with INR INR PTT (Actin FS) VBG pH POC VBG pCO2 POC VBG pO2 Mixed VBG HCO3 Sodium 135 L Potassium 4.8 Chloride 104 Carbon Dioxide 17 L Anion Gap 13 BUN 76 H Creatinine 4.0 H Creat Clearance w eGFR 15.14 Random Glucose 294 H Lactic Acid 3.1 H* Calcium 7.9 L Total Bilirubin 0.5 AST 15 ALT 17 Alkaline Phosphatase 85 Troponin I < 0.02 Total Protein 5.8 L Albumin 3.0 L Urine Color Urine Appearance Urine pH Ur Specific [place] Urine Protein Urine Glucose (UA) Urine Ketones Urine Blood Urine Nitrite Urine Bilirubin Urine Urobilinogen Ur Leukocyte Esterase Urine WBC (Auto) Urine RBC (Auto) Urine Mucus Blood Type Antibody Screen Crossmatch 12/02/17 12/02/17 12/02/17 17:00 21:22 21:22 WBC RBC Hgb Hct MCV MCH MCHC RDW Plt Count MPV Absolute Neuts (auto) Neutrophils % Neutrophils % (Manual) Lymphocytes % Monocytes % Eosinophils % Basophils % Nucleated RBC % Hypochromia Platelet Estimate Platelet Comment Polychromasia Poikilocytosis Anisocytosis Microcytosis PT with INR INR PTT (Actin FS) VBG pH POC VBG pCO2 POC VBG pO2 Mixed VBG HCO3 Sodium Potassium Chloride Carbon Dioxide Anion Gap BUN Creatinine Creat Clearance w eGFR Random Glucose Lactic Acid 1.4 Calcium Total Bilirubin AST ALT Alkaline Phosphatase Troponin I Total Protein Albumin Urine Color Dkyellow Urine Appearance Cloudy Urine pH 5.0 Ur Specific [place] 1.014 Urine Protein 3+ H Urine Glucose (UA) 1+ H Urine Ketones Negative Urine Blood 1+ H Urine Nitrite Negative Urine Bilirubin Negative Urine Urobilinogen Negative Ur Leukocyte Esterase 2+ H Urine WBC (Auto) 58 Urine RBC (Auto) 12 Urine Mucus Many Blood Type B NEGATIVE Antibody Screen Negative Crossmatch See Detail ASSESSMENT/PLAN: 67M w/ pmhx of HTN, DM, HIV, CLL, cirrhosis, CKD, chronic anemia, BPH, Hep C (s/ p Harvoni tx) admitted for sepsis 2/2 UTI. #Sepsis 2/2 UTI vs. cholecystitis; Pt has chronic ortiz catheter complaining of urinary symptoms and penile discharge, likely UTI infection present. Scrotal U/ S showed mod-sized R hydrocele, large L testicular cyst/lesion measuring 2.4x2.8x2.7cm with positive arterial Doppler flow to L testicle. Additionally, however, CTAP showed possible diverticulitis and cholecystitis, which could may also be other potential sources of infection, although pt not complaining of abdominal symptoms. -Vanc 1g IVPB QD -Zosyn 4.5 gm IVPB Q6H -urine/blood cultures ordered -ID/Uro consult -f/u gallbladder U/S to better assess cholecystitis; surgery consult for possible cholecystectomy #Acute Respiratory Distress; Pt satting in high 80s/low 90s on 5L NC -ABG ordered -Pt put on non-rebreather, will reassess O2 status and adjust accordingly #HIV Resume home meds: -Prezista 600 mg PO BID -Isentress 400 mg PO BID -Edurant 25 mg PO QD -Norvir 100 mg PO BID #HTN Resume home meds: -Hydralazine 25 mg PO BID -Coreg 6.25 mg PO BID -Procardia 60 mg PO QD -Lasix 80 mg PO QD #DM -Hold home oral DM meds -BGMs ACHS -ISS ACHS #CKD -avoid nephrotoxic agents/drugs #Gout Resume home med: -Allopurinol 100 mg PO QD #BPH Resume home meds: -Finasteride 5 mg PO QD -Tamsulosin 0.4 mg PO BID #DVT Ppx -Heparin 5000U SQ TID #FEN -no IVf -recheck lytes in AM -Diabetic/sodium-controlled diet dispo -admit to med-surg Visit type - Emergency Visit Emergency Visit: Yes ED Registration Date: 12/02/17 Care time: The patient presented to the Emergency Department on the above date and was hospitalized for further evaluation of their emergent condition. - New Patient This patient is new to me today: Yes Date on this admission: 12/03/17 - Critical Care Critical Care patient: No
[2017-12-03] MEDS ORDERED: VANCOMYCIN 1,000 MG in DEXTROSE 5%-WATER - 250 ML IVPB SCH (05:00)
[2017-12-03] MEDS ORDERED: PIPERACILLIN/TAZOB 2.25 GM 2.25 GM in DEXTROSE 5%-WATER - 50 ML IVPB ONE (05:30)
--- NOTE | 2017-12-03 05:42 | PN ---
Teaching Attending Note Name of Resident: Nohemy Ocasio ATTENDING PHYSICIAN STATEMENT I saw and evaluated the patient. Chart, data, imaging reviewed. I reviewed the resident's note and discussed the case with the resident. I agree with the resident's findings and plan as documented. SUBJECTIVE: 67M w/ pmhx of HTN, DM, HIV, CLL, cirrhosis, CKD, chronic anemia, BPH w/ chronic ortiz placement, Hep C (s/p Harvoni tx) presented c/o fever and purulent discharge around his ortiz insertion. As per him, he did not have his ortiz catheter switched in 3 months. Denied shortness of breath or cough. No abdominal pain. OBJECTIVE: Last Vital Signs Temp Pulse Resp BP Pulse Ox 99.4 F 82 18 134/82 92 L 12/03/17 02:01 12/03/17 02:24 12/03/17 02:24 12/03/17 02:24 12/03/17 02:24 Pt was saturating high 80s on room air, but did not appear to be in any respiratory distress General- appears comfortable heent moist oral mucosa neck supple cv-s1+[id number]+[id number] chest clear abdomen soft, nt ortiz -catheter Abnormal Lab Results 12/02/17 12/02/17 12/02/17 16:55 16:55 16:55 WBC 20.2 H RBC 2.76 L Hgb 7.8 L Hct 24.5 L RDW 17.5 H Plt Count 96 L D Absolute Neuts (auto) 0.6 L Neutrophils % 2.8 L Lymphocytes % 96.9 H Monocytes % 0.2 L PT with INR 15.10 H INR 1.28 H VBG pH 7.43 H POC VBG pCO2 24.8 L POC VBG pO2 75.0 H D Mixed VBG HCO3 16.1 L Sodium Carbon Dioxide BUN Creatinine Random Glucose Lactic Acid Calcium Total Protein Albumin Urine Protein Urine Glucose (UA) Urine Blood Ur Leukocyte Esterase Crossmatch 12/02/17 12/02/17 12/02/17 16:55 16:55 17:00 WBC RBC Hgb Hct RDW Plt Count Absolute Neuts (auto) Neutrophils % Lymphocytes % Monocytes % PT with INR INR VBG pH POC VBG pCO2 POC VBG pO2 Mixed VBG HCO3 Sodium 135 L Carbon Dioxide 17 L BUN 76 H Creatinine 4.0 H Random Glucose 294 H Lactic Acid 3.1 H* Calcium 7.9 L Total Protein 5.8 L Albumin 3.0 L Urine Protein 3+ H Urine Glucose (UA) 1+ H Urine Blood 1+ H Ur Leukocyte Esterase 2+ H Crossmatch 12/02/17 21:22 WBC RBC Hgb Hct RDW Plt Count Absolute Neuts (auto) Neutrophils % Lymphocytes % Monocytes % PT with INR INR VBG pH POC VBG pCO2 POC VBG pO2 Mixed VBG HCO3 Sodium Carbon Dioxide BUN Creatinine Random Glucose Lactic Acid Calcium Total Protein Albumin Urine Protein Urine Glucose (UA) Urine Blood Ur Leukocyte Esterase Crossmatch See Detail CXR reviewed ASSESSMENT AND PLAN: 67yo man HIV with sepsis, likely from urinary tract infection from chronic ortiz catheter. Puss seen exiting from catheter. Possibly intraabdminal sourse as cholecystitis and possible diverticulitis seen on CT of abdomen, although patient does not have any abdominal symptoms. Desaturating on pulse oximetry, however, not respiratory symptoms. -admit to med/surg -blood cultures -urine culture -renal u/s to better assess for pyelo -gallbladder U/S to better assess for cholecystitis -replace ortiz catheter -ID consult -surgery consult for possible cholecystectomy -supplemental oxygen via nasal cannula -ABG #HIV -c/w ART meds -CD4 count -HIV VL PCR dvt ppx -heparin sc
[2017-12-03] MEDS ORDERED: PIPERACILLIN/TAZOB 2.25 GM 2.25 GM/50 ML BAG IVPB ONE (05:54)
[2017-12-03] MEDS ORDERED: HEPARIN NA (PORCINE) 5,000 UNITS/ML 1ML VIAL ONE (05:54)
[2017-12-03] MEDS: HEPARIN NA (PORCINE) 5,000 UNITS/ML 1ML VIAL SQ SCH ×3 (06:15→21:32)
[2017-12-03 06:18] LABS: HEMATOCRIT 22.7 % (35.4-49); HEMOGLOBIN 7.2 GM/dL (11.7-16.9); LYMPH % 95.1 % (8-40); MCH 28.2 pg (25.7-33.7); MCHC 31.7 g/dl (32.0-35.9); MEAN PLT VOLUME 7.8 fl (7.5-11.1); MONO % 0.5 % (3.8-10.2); NEUT % 4.4 % (42.8-82.8); PLATELET COUNT 76 K/MM3 (134-434); RBC 2.55 M/mm3 (4.00-5.60); RDW 17.6 % (11.9-15.9); WHITE BLOOD COUNT 20.1 K/mm3 (4.0-10.0)
[2017-12-03] MEDS ORDERED: INSULIN (NOVOLOG) ASPART 100 UNITS/ML 10ML VIAL ONE ×2 (06:26→11:59)
[2017-12-03 06:32] LABS: ARTERIAL BLD GAS O2 SATURATION 97.1 % (90-98.9); ARTERIAL BLOOD GAS BASE EXCESS -7.3 meq/l (-2-2); ARTERIAL BLOOD GAS PCO2 28.8 mmHg (35-45); ARTERIAL BLOOD GAS PO2 99.8 mmHg (80-100); ARTERIAL BLOOD GAS pH 7.38 (7.35-7.45)
[2017-12-03 06:35] LABS: ALLENS TEST POSITIVE
[2017-12-03 06:50] LABS: ALBUMIN 2.9 g/dl (3.4-5.0); ALK PHOS 79 U/L (45-117); ANION GAP 13 MMOL/L (8-16); BILIRUBIN,TOTAL 0.8 mg/dL (0.2-1); BLOOD UREA NITROGEN 83 mg/dL (7-18); CALCIUM 7.6 mg/dL (8.5-10.1); CHLORIDE 108 mmol/L (98-107); CO2 17 mmol/L (21-32); CREATININE 4.3 mg/dL (0.55-1.3); GLUCOSE,RANDOM 172 mg/dL (74-106); POTASSIUM 4.5 mmol/L (3.5-5.1); SGOT/AST 14 U/L (15-37); SGPT/ALT 17 U/L (13-61); SODIUM 137 mmol/L (136-145); TOT PROT 5.6 g/dl (6.4-8.2)
[2017-12-03] MEDS: INSULIN SLIDING SCALE (NOVOLOG) 1 VIAL SQ SCH ×4 (06:53→21:43)
[2017-12-03] MEDS ORDERED: PT OWN MED DRAWER 7, Y5N ONE ×2 (09:03→23:06)
[2017-12-03] MEDS: hydrALAZINE HCL 25 MG TABLET (FP) PO SCH ×2 (09:37→21:31)
[2017-12-03] MEDS: CARVEDILOL 6.25 MG TABLET (FP) PO SCH ×2 (09:38→21:31)
[2017-12-03] MEDS: RILPIVIRINE HCL 25 MG TABLET PO SCH (09:39)
[2017-12-03] MEDS: TAMSULOSIN HCL 0.4 MG CAP PO SCH ×2 (09:41→21:31)
[2017-12-03] MEDS: RALTEGRAVIR POTASSIUM 400 MG TAB PO SCH ×2 (09:43→23:18)
[2017-12-03] MEDS: RITONAVIR 100 MG TABLET PO SCH ×2 (09:45→23:17)
[2017-12-03] MEDS: DARUNAVIR ETHANOLATE 600 MG TAB PO SCH ×2 (09:48→23:18)
[2017-12-03] MEDS: NIFEdipine E.R 60 MG TABLET (UD) PO SCH (09:49)
[2017-12-03] MEDS: FINASTERIDE 5 MG TABLET (FP) PO SCH (09:50)
[2017-12-03] MEDS: SODIUM BICARBONATE 650 MG TABLET PO SCH ×2 (09:51→23:19)
[2017-12-03] MEDS: RANITIDINE HCL 150 MG TABLET (FP) PO SCH (09:51)
[2017-12-03] MEDS: ALLOPURINOL 100 MG TABLET (FP) PO SCH (09:52)
[2017-12-03] MEDS ORDERED: FUROSEMIDE 40 MG TABLET (FP) PO SCH (10:00)
--- NOTE | 2017-12-03 10:13 | CONSULT ---
Consult Consult Specialty:: General Surgery Reason for Consultation:: Thickened gallbladder wall on CT and US - History of Present Illness Chief Complaint: catheter pain History of Present Illness: 67 yo male PMH HTN, DM, HIV, CLL, cirrhosis, CKD, chronic anemia, BPH, Hep C (s/ p Ramona elizabeth) presented to the ED with complaints of fever, generalized weakness , scrotal and penile swelling. Pt reports that he had a ortiz catheter for the past 3 months in which it has only been changed 1 time. He admits to gradually worsening penile and scrotal swelling with discharge at the urethral meatus, as well as in the ortiz. He has had no abdominal pain and denies abdominal pain after meals. He has been tolerating his usual diet. He has normal bowel habits. Admits to some sob whenever he feels sick. Denies headaches/dizziness, chest pain, abd pain, constipation/diarrhea, leg swelling, problems going to the bathroom. CT scan showed a contracted thick walled GB without stones. We were called to assess. - History Source History Provided By: Patient, Medical Record Limitations to Obtaining History: No Limitations - Past Medical History Cardio/Vascular: Yes: HTN Hepatobiliary: Yes: Cirrhosis, Hepatitis C Renal/: Yes: Renal Inusuff, BPH, Other (hesitancy, intermittemncy, poor stream ) Infectious Disease: Yes: HIV Endocrine: Yes: Diabetes Mellitus Additional Medical History: lymphocytic leuckemia - Past Surgical History Past Surgical History: Yes: None - Alcohol/Substance Use Hx Alcohol Use: No History of Substance Use: reports: Cocaine (quit x 25 yrs), Heroin - Smoking History Smoking history: Never smoked Have you smoked in the past 12 months: No Aproximately how many cigarettes per day: 0 If you are a former smoker, when did you quit?: > 25 yrs ago - Social History Usual Living Arrangement: Alone ADL: Independent History of Recent Travel: No Home Medications - Allergies Allergies/Adverse Reactions: Allergies Allergy/AdvReac Type Severity Reaction Status Date / Time lactose AdvReac Verified 12/02/17 15:50 - Home Medications Home Medications: Ambulatory Orders Ritonavir [Norvir] 100 mg PO BID #0 tablet 01/07/13 Allopurinol [Zyloprim -] 100 mg PO DAILY 09/01/15 Carvedilol [Coreg -] 6.25 mg PO BID 09/01/15 Furosemide [Lasix -] 80 mg PO DAILY 09/01/15 Nifedipine [Nifedical Xl] 60 mg PO DAILY 09/01/15 Raltegravir [Isentress] 400 mg PO BID 09/01/15 Rilpivirine HCl [Edurant] 25 mg PO DAILY 09/01/15 Darunavir Ethanolate [Prezista -] 600 mg PO BID 07/09/16 Ranitidine [Zantac -] 150 mg PO DAILY 14 Days tablet 09/21/17 Tamsulosin HCl [Flomax -] 0.4 mg PO BID 14 Days cap.er.24h 09/21/17 Finasteride [Proscar -] 5 mg PO DAILY 11/05/17 Sitagliptin Phosphate [Januvia] 25 mg PO DAILY 11/05/17 Sodium Bicarbonate - 650 mg PO BID 11/05/17 hydrALAZINE HCL [Apresoline -] 25 mg PO BID tablet 11/13/17 Family Disease History - Family Disease History Family Disease History: Heart Disease: Father ( of [place] at 55, ETOH), Other: Father, Mother (hypertension), Sister (hypertension) Review of Systems - Review of Systems Constitutional: reports: Fever, Malaise. denies: Chills Eyes: denies: Blind Spots, Recent Change in Vision HENT: denies: Difficult Swallowing, Throat Pain Neck: denies: Pain on Movement, Tenderness Cardiovascular: denies: Chest Pain, Palpitations Respiratory: denies: Cough, SOB Gastrointestinal: denies: Abdominal Pain, Bloating, Constipation, Diarrhea Genitourinary: reports: Burning, Discharge, Dysuria, Other (catheter present) Breasts: reports: No Symptoms Reported. denies: Pain Musculoskeletal: denies: Muscle Pain, Muscle Cramps, Muscle Weakness Integumentary: denies: Erythema, Lesions, Pruritis Neurological: denies: Seizure, Syncope Endocrine: denies: Unexplained Weight Gain, Unexplained Weight Loss Hematology/Lymphatic: denies: Easily Bruised, Excessive Bleeding Psychiatric: denies: Anxiety, Depression Physical Exam Vital Signs: Vital Signs Temperature 98.1 F 12/03/17 09:07 Pulse Rate 83 12/03/17 09:07 Respiratory Rate 20 12/03/17 09:07 Blood Pressure 134/54 L 12/03/17 09:07 O2 Sat by Pulse Oximetry (%) 92 L 12/03/17 02:24 Constitutional: Yes: Well Nourished, No Distress, Calm Eyes: Yes: Conjunctiva Clear, EOM Intact HENT: Yes: Atraumatic, Normocephalic Neck: Yes: Supple, Trachea Midline Cardiovascular: Yes: S1, S2 Respiratory: Yes: Regular, CTA Bilaterally Gastrointestinal: Yes: Normal Bowel Sounds, Soft, Distention. No: Tenderness, Tenderness, Epigastrium, Tenderness, Rebound ...Rectal Exam: Yes: Deferred Renal/: Yes: Bladder Distention, Ortiz Present. No: CVA Tenderness - Left, CVA Tenderness - Right Musculoskeletal: No: Muscle Pain, Muscle Weakness Extremities: No: Cool, Cyanosis Edema: No Peripheral Pulses WNL: Yes Integumentary: No: Jaundice, Rash, Skin Tear Neurological: Yes: Alert, Oriented Psychiatric: Yes: Alert, Oriented Labs: CBC, BMP 12/03/17 05:14 Imaging - Results Cat Scan: Report Reviewed, Image Reviewed Problem List - Problems (1) Abnormal gallbladder x-ray Assessment/Plan: 67 male with contracted thick walled gallbladder on imaging. No need for acute surgical intervention at this time. Call Dr. Kim' office at [phone] to make an appointment if desired ( Sunday as advised). Clinic is held in the [facility] on the first floor of [facility]. Call the office if you have: * increasing right upper abdominal pain not responsive to pain medication * fever of 101F or higher * vomiting Thank you for the opportunity to participate in the care of this patient. Code(s): R93.2 - ABNORMAL FINDINGS ON DX IMAGING OF LIVER AND BILIARY TRACT (2) Sepsis Code(s): A41.9 - SEPSIS, UNSPECIFIED ORGANISM Qualifiers: Sepsis type: sepsis due to unspecified organism Qualified Code(s): A41.9 - Sepsis, unspecified organism (3) UTI (urinary tract infection) Code(s): N39.0 - URINARY TRACT INFECTION, SITE NOT SPECIFIED Qualifiers: Urinary tract infection type: site unspecified Hematuria presence: without hematuria Qualified Code(s): N39.0 - Urinary tract infection, site not specified (4) CLL (chronic lymphocytic leukemia) Code(s): C91.90 - LYMPHOID LEUKEMIA, UNSPECIFIED NOT HAVING ACHIEVED REMISSION (5) Chronic hepatitis C Code(s): B18.2 - CHRONIC VIRAL HEPATITIS C (6) Cirrhosis of liver Code(s): K74.60 - UNSPECIFIED CIRRHOSIS OF LIVER (7) Leukocytosis Code(s): D72.829 - ELEVATED WHITE BLOOD CELL COUNT, UNSPECIFIED (8) Prostatism Code(s): N40.0 - BENIGN PROSTATIC HYPERPLASIA WITHOUT LOWER URINRY TRACT SYMP (9) Urinary retention due to benign prostatic hyperplasia Code(s): N40.1 - BENIGN PROSTATIC HYPERPLASIA WITH LOWER URINARY TRACT SYMP; R33.8 - OTHER RETENTION OF URINE
[2017-12-03 10:22] LABS: ANISOCYTOSIS 2+; MACROCYTOSIS 1+; PLATELET ESTIMATE DECREASED; TARGET CELLS 1+; TEAR DROP CELLS 2+
[2017-12-03] MEDS ORDERED: SODIUM CHLORIDE 1,000 ML IV SCH (12:15)
--- NOTE | 2017-12-03 13:34 | CONSULT ---
Consult Consult Specialty:: Nephrology Reason for Consultation:: CKD - History of Present Illness Chief Complaint: scrotal and penile pain History of Present Illness: Pt is a 67 year old male with pmhx of HTN, DM, HIV, CLL, liver cirrhosis, and anemia who presents to the ER with scrotal and testicular pain. He also complains of lower ext edema. He does get shortness of breath with ambulation. He was recently discharged. 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 He is taking lasix 80 mg daily. He denies abdominal pain. - History Source History Provided By: Patient, Medical Record - Past Medical History Cardio/Vascular: Yes: HTN Hepatobiliary: Yes: Cirrhosis, Hepatitis C Renal/: Yes: Renal Inusuff, BPH, Other (hesitancy, intermittemncy, poor stream ) Infectious Disease: Yes: HIV Endocrine: Yes: Diabetes Mellitus Additional Medical History: lymphocytic leuckemia - Past Surgical History Past Surgical History: Yes: None - Alcohol/Substance Use Hx Alcohol Use: No History of Substance Use: reports: Cocaine (quit x 25 yrs), Heroin - Smoking History Smoking history: Never smoked Have you smoked in the past 12 months: No Aproximately how many cigarettes per day: 0 If you are a former smoker, when did you quit?: > 25 yrs ago - Social History Usual Living Arrangement: Alone ADL: Independent History of Recent Travel: No Home Medications - Allergies Allergies/Adverse Reactions: Allergies Allergy/AdvReac Type Severity Reaction Status Date / Time lactose AdvReac Verified 12/02/17 15:50 - Home Medications Home Medications: Ambulatory Orders Ritonavir [Norvir] 100 mg PO BID #0 tablet 01/07/13 Allopurinol [Zyloprim -] 100 mg PO DAILY 09/01/15 Carvedilol [Coreg -] 6.25 mg PO BID 09/01/15 Furosemide [Lasix -] 80 mg PO DAILY 09/01/15 Nifedipine [Nifedical Xl] 60 mg PO DAILY 09/01/15 Raltegravir [Isentress] 400 mg PO BID 09/01/15 Rilpivirine HCl [Edurant] 25 mg PO DAILY 09/01/15 Darunavir Ethanolate [Prezista -] 600 mg PO BID 07/09/16 Ranitidine [Zantac -] 150 mg PO DAILY 14 Days tablet 09/21/17 Tamsulosin HCl [Flomax -] 0.4 mg PO BID 14 Days cap.er.24h 09/21/17 Finasteride [Proscar -] 5 mg PO DAILY 11/05/17 Sitagliptin Phosphate [Januvia] 25 mg PO DAILY 11/05/17 Sodium Bicarbonate - 650 mg PO BID 11/05/17 hydrALAZINE HCL [Apresoline -] 25 mg PO BID tablet 11/13/17 Family Disease History - Family Disease History Family Disease History: Heart Disease: Father ( of [place] at 55, ETOH), Other: Father, Mother (hypertension), Sister (hypertension) Review of Systems - Review of Systems Constitutional: reports: Malaise Eyes: reports: No Symptoms HENT: reports: No Symptoms Neck: reports: No Symptoms Cardiovascular: reports: Edema Respiratory: reports: SOB on Exertion Genitourinary: reports: Testicular Pain, Testicular Swelling Musculoskeletal: reports: No Symptoms Integumentary: reports: No Symptoms Neurological: reports: No Symptoms Endocrine: reports: No Symptoms Hematology/Lymphatic: reports: No Symptoms Psychiatric: reports: No Symptoms Physical Exam Vital Signs: Vital Signs Temperature 98.1 F 12/03/17 09:07 Pulse Rate 71 12/03/17 11:31 Respiratory Rate 16 12/03/17 11:31 Blood Pressure 110/66 12/03/17 11:31 O2 Sat by Pulse Oximetry (%) 95 12/03/17 11:31 Constitutional: Yes: Calm Eyes: Yes: Conjunctiva Clear HENT: Yes: Atraumatic Neck: Yes: Supple Cardiovascular: Yes: S1, S2 Respiratory: Yes: CTA Bilaterally, On Nasal O2 Gastrointestinal: Yes: Soft Renal/: Yes: WNL Edema: Yes Edema: LLE: 2+, RLE: 2+ Neurological: Yes: Oriented Psychiatric: Yes: Oriented Labs: CBC, BMP 12/03/17 05:14 Laboratory Tests 12/02/17 12/02/17 12/03/17 16:55 21:22 05:14 WBC 20.1 H Hgb 7.2 L BUN Creatinine Lactic Acid 3.1 H* 1.4 12/03/17 05:14 WBC Hgb BUN 83 H Creatinine 4.3 H Lactic Acid Imaging - Results Chest X-ray: Report Reviewed Problem List - Problems (1) Renal insufficiency Code(s): N28.9 - DISORDER OF KIDNEY AND URETER, UNSPECIFIED (2) Anemia Code(s): D64.9 - ANEMIA, UNSPECIFIED (3) CKD (chronic kidney disease) Code(s): N18.9 - CHRONIC KIDNEY DISEASE, UNSPECIFIED (4) CLL (chronic lymphocytic leukemia) Code(s): C91.90 - LYMPHOID LEUKEMIA, UNSPECIFIED NOT HAVING ACHIEVED REMISSION (5) HIV (human immunodeficiency virus infection) Code(s): B20 - HUMAN IMMUNODEFICIENCY VIRUS [HIV] DISEASE Assessment/Plan Current Medications Generic Name Dose Route Start Last Admin Trade Name Freq PRN Reason Stop Dose Admin Allopurinol 100 mg 12/03/17 10:00 12/03/17 09:52 Zyloprim - PO 100 mg DAILY L[facility]IA Administration Carvedilol 6.25 mg 12/03/17 10:00 12/03/17 09:38 Coreg - PO 6.25 mg BID LIDIA Administration Darunavir 600 mg 12/03/17 10:00 12/03/17 09:48 Prezista - PO 600 mg BID LIDIA Administration Finasteride 5 mg 12/03/17 10:00 12/03/17 09:50 Proscar - PO 5 mg DAILY LIDIA Administration Furosemide 40 mg 12/04/17 06:00 Lasix Injection - IVPUSH BID@0600,1400 [facility] Heparin Sodium (Porcine) 5,000 unit 12/03/17 06:00 12/03/17 14:29 Heparin - SQ 5,000 unit TID LIDIA Administration Hydralazine HCl 25 mg 12/03/17 10:00 12/03/17 09:37 Apresoline - PO 25 mg BID LIDIA Administration Ceftazidime 1 gm/ Dextrose 50 mls @ 100 mls/hr 12/03/17 14:15 IVPB DAILY [facility] Protocol Insulin Aspart 1 vial 12/03/17 07:00 12/03/17 11:35 Novolog Vial Sliding Scale - SQ 2 units ACHS LIDIA Administration Protocol Nifedipine 60 mg 12/03/17 10:00 12/03/17 09:49 Procardia Xl - PO 60 mg DAILY L[facility] Administration Raltegravir 400 mg 12/03/17 10:00 12/03/17 09:43 Isentress - PO 400 mg BID L[facility] Administration Ranitidine HCl 150 mg 12/03/17 10:00 12/03/17 09:51 Zantac - PO 150 mg DAILY [facility] Administration Ritonavir 100 mg 12/03/17 10:00 12/03/17 09:45 Norvir - PO 100 mg BID L[facility]IA Administration Sodium Bicarbonate 650 mg 12/03/17 10:00 12/03/17 09:51 Sodium Bicarbonate - PO 650 mg BID L[facility]IA Administration Tamsulosin HCl 0.4 mg 12/03/17 10:00 12/03/17 09:41 Flomax - PO 0.4 mg BID L[facility]IA Administration Impression 1. CKD 2. urinary retention 3. HIV 4. liver cirrhosis 5. Hep C 6. nephrolothiasis 7. DM 8. BPH 9. HTN 10. CLL 11. anemia 12. scrotal cellulitis Plan - cont with lasix - give a dose of lasix with transfusion - abc per ID - repeat labs in am - follow cultures - discussed with medical team - monitor lytes - cont bicarb - will follow Dr Wells
--- NOTE | 2017-12-03 14:10 | PN ---
Progress Note (short form) - Note Progress Note: ID Consult dictaded Penile/ scrotal cellulitis R/O chronic cystitis/ prostatitis Obstructive uropathy / chronic indwelling ortiz catheter + urine c/s Pseudomas CKD AIDS CLL Await c/s Urine GC/ chlamydia Empiric cefepime / vancomycin
[2017-12-03] MEDS ORDERED: VANCOMYCIN 1 GRAM (PRE-DOCKED) 1,000 MG/250 ML BAG IVPB ONE (14:12)
[2017-12-03] MEDS ORDERED: FUROSEMIDE 40 MG/4 ML INJECTABLE VIAL IVPUSH ONE ×2 (14:13→14:25)
--- NOTE | 2017-12-03 14:22 | PN ---
Physical Exam: SUBJECTIVE: Patient seen and examined. Feels cold, tremulousness. This is how he has felt in the past when he needs a transfusion. OBJECTIVE: Vital Signs Period Temp Pulse Resp BP Sys/[place] Pulse Ox Last 24 Hr 98.1 F-103 F 71-98 16-22 104-134/50-82 92-98 GENERAL: The patient is awake, alert, and fully oriented, in no acute distress. LUNGS: Breath sounds equal, clear to auscultation bilaterally, no wheezes, no crackles, no accessory muscle use. HEART: Regular rate and rhythm, S1, S2 ABDOMEN: Markedly distended, not tender, no guarding, no rebound : Ortiz in place draining cloudy yellow urine; no pus around meatus; penis and scrotum are swollen and tender LOWER EXTREMITIES: LLE 3+ pitting edema; RLE 2+ edema; no calf tenderness NEUROLOGICAL: Cranial nerves II through XII grossly intact. Normal speech, gait not observed. Mildly tremulous. Laboratory Results - last 24 hr 12/02/17 12/02/17 12/02/17 16:55 16:55 16:55 WBC 20.2 H RBC 2.76 L Hgb 7.8 L Hct 24.5 L MCV 88.6 MCH 28.4 MCHC 32.0 RDW 17.5 H Plt Count 96 L D MPV 8.3 Absolute Neuts (auto) 0.6 L Neutrophils % 2.8 L Neutrophils % (Manual) No Result Required. Band Neutrophils % Lymphocytes % 96.9 H Lymphocytes % (Manual) Monocytes % 0.2 L Monocytes % (Manual) Eosinophils % 0.1 Eosinophils % (Manual) Basophils % 0.0 Basophils % (Manual) Myelocytes % (Man) Promyelocytes % (Man) Blast Cells % (Manual) Nucleated RBC % 0 Metamyelocytes Hypochromia 2+ Platelet Estimate Decreased Platelet Comment No clumping noted Polychromasia 1+ Poikilocytosis 1+ Anisocytosis 1+ Microcytosis 1+ Macrocytosis Target Cells Tear Drop Cells Schistocytes Retic Count PT with INR 15.10 H INR 1.28 H PTT (Actin FS) 26.7 Anticoagulation Therapy Puncture Site ABG pH ABG pCO2 at Pt Temp ABG pO2 at Pt Temp ABG HCO3 ABG O2 Sat (Measured) ABG O2 Content ABG Base Excess Kale Test VBG pH 7.43 H POC VBG pCO2 24.8 L POC VBG pO2 75.0 H D Mixed VBG HCO3 16.1 L O2 Delivery Device Oxygen Flow Rate Vent Mode Vent Rate Mechanical Rate Pressure Support Vent Sodium Potassium Chloride Carbon Dioxide Anion Gap BUN Creatinine Creat Clearance w eGFR POC Glucometer Random Glucose Lactic Acid Calcium Total Bilirubin AST ALT Alkaline Phosphatase Troponin I Total Protein Albumin Urine Color Urine Appearance Urine pH Ur Specific [place] Urine Protein Urine Glucose (UA) Urine Ketones Urine Blood Urine Nitrite Urine Bilirubin Urine Urobilinogen Ur Leukocyte Esterase Urine WBC (Auto) Urine RBC (Auto) Urine Mucus HIV 1&2 Antibody Screen HIV P24 Antigen Blood Type Antibody Screen Crossmatch 12/02/17 12/02/17 12/02/17 16:55 16:55 16:55 WBC RBC Hgb Hct MCV MCH MCHC RDW Plt Count MPV Absolute Neuts (auto) Neutrophils % Neutrophils % (Manual) Band Neutrophils % Lymphocytes % Lymphocytes % (Manual) Monocytes % Monocytes % (Manual) Eosinophils % Eosinophils % (Manual) Basophils % Basophils % (Manual) Myelocytes % (Man) Promyelocytes % (Man) Blast Cells % (Manual) Nucleated RBC % Metamyelocytes Hypochromia Platelet Estimate Platelet Comment Polychromasia Poikilocytosis Anisocytosis Microcytosis Macrocytosis Target Cells Tear Drop Cells Schistocytes Retic Count PT with INR INR PTT (Actin FS) Anticoagulation Therapy Puncture Site ABG pH ABG pCO2 at Pt Temp ABG pO2 at Pt Temp ABG HCO3 ABG O2 Sat (Measured) ABG O2 Content ABG Base Excess Kale Test VBG pH POC VBG pCO2 POC VBG pO2 Mixed VBG HCO3 O2 Delivery Device Oxygen Flow Rate Vent Mode Vent Rate Mechanical Rate Pressure Support Vent Sodium 135 L Potassium 4.8 Chloride 104 Carbon Dioxide 17 L Anion Gap 13 BUN 76 H Creatinine 4.0 H Creat Clearance w eGFR 15.14 POC Glucometer Random Glucose 294 H Lactic Acid 3.1 H* Calcium 7.9 L Total Bilirubin 0.5 AST 15 ALT 17 Alkaline Phosphatase 85 Troponin I < 0.02 Total Protein 5.8 L Albumin 3.0 L Urine Color Urine Appearance Urine pH Ur Specific [place] Urine Protein Urine Glucose (UA) Urine Ketones Urine Blood Urine Nitrite Urine Bilirubin Urine Urobilinogen Ur Leukocyte Esterase Urine WBC (Auto) Urine RBC (Auto) Urine Mucus HIV 1&2 Antibody Screen HIV P24 Antigen Blood Type Antibody Screen Crossmatch 12/02/17 12/02/17 12/02/17 17:00 21:22 21:22 WBC RBC Hgb Hct MCV MCH MCHC RDW Plt Count MPV Absolute Neuts (auto) Neutrophils % Neutrophils % (Manual) Band Neutrophils % Lymphocytes % Lymphocytes % (Manual) Monocytes % Monocytes % (Manual) Eosinophils % Eosinophils % (Manual) Basophils % Basophils % (Manual) Myelocytes % (Man) Promyelocytes % (Man) Blast Cells % (Manual) Nucleated RBC % Metamyelocytes Hypochromia Platelet Estimate Platelet Comment Polychromasia Poikilocytosis Anisocytosis Microcytosis Macrocytosis Target Cells Tear Drop Cells Schistocytes Retic Count PT with INR INR PTT (Actin FS) Anticoagulation Therapy Puncture Site ABG pH ABG pCO2 at Pt Temp ABG pO2 at Pt Temp ABG HCO3 ABG O2 Sat (Measured) ABG O2 Content ABG Base Excess Kale Test VBG pH POC VBG pCO2 POC VBG pO2 Mixed VBG HCO3 O2 Delivery Device Oxygen Flow Rate Vent Mode Vent Rate Mechanical Rate Pressure Support Vent Sodium Potassium Chloride Carbon Dioxide Anion Gap BUN Creatinine Creat Clearance w eGFR POC Glucometer Random Glucose Lactic Acid 1.4 Calcium Total Bilirubin AST ALT Alkaline Phosphatase Troponin I Total Protein Albumin Urine Color Dkyellow Urine Appearance Cloudy Urine pH 5.0 Ur Specific [place] 1.014 Urine Protein 3+ H Urine Glucose (UA) 1+ H Urine Ketones Negative Urine Blood 1+ H Urine Nitrite Negative Urine Bilirubin Negative Urine Urobilinogen Negative Ur Leukocyte Esterase 2+ H Urine WBC (Auto) 58 Urine RBC (Auto) 12 Urine Mucus Many HIV 1&2 Antibody Screen HIV P24 Antigen Blood Type B NEGATIVE Antibody Screen Negative Crossmatch See Detail 12/03/17 12/03/17 12/03/17 05:14 05:14 05:14 WBC 20.1 H RBC 2.55 L Hgb 7.2 L Hct 22.7 L MCV 89.0 MCH 28.2 MCHC 31.7 L RDW 17.6 H Plt Count 76 L D MPV 7.8 Absolute Neuts (auto) 0.9 L Neutrophils % 4.4 L Neutrophils % (Manual) 1.0 L Band Neutrophils % 0.0 Lymphocytes % 95.1 H Lymphocytes % (Manual) 95.0 H* Monocytes % 0.5 L D Monocytes % (Manual) 1 L Eosinophils % 0.0 D Eosinophils % (Manual) 0.0 Basophils % 0.0 Basophils % (Manual) 0.0 Myelocytes % (Man) 0 Promyelocytes % (Man) 0 Blast Cells % (Manual) 0 Nucleated RBC % 0 Metamyelocytes 0 Hypochromia 1+ Platelet Estimate Decreased Platelet Comment Polychromasia 0 Poikilocytosis 2+ Anisocytosis 2+ Microcytosis 1+ Macrocytosis 1+ Target Cells 1+ Tear Drop Cells 2+ Schistocytes 1+ Retic Count PT with INR INR PTT (Actin FS) Anticoagulation Therapy Puncture Site ABG pH ABG pCO2 at Pt Temp ABG pO2 at Pt Temp ABG HCO3 ABG O2 Sat (Measured) ABG O2 Content ABG Base Excess Kale Test VBG pH POC VBG pCO2 POC VBG pO2 Mixed VBG HCO3 O2 Delivery Device Oxygen Flow Rate Vent Mode Vent Rate Mechanical Rate Pressure Support Vent Sodium 137 Potassium 4.5 Chloride 108 H Carbon Dioxide 17 L Anion Gap 13 BUN 83 H Creatinine 4.3 H Creat Clearance w eGFR 13.93 POC Glucometer Random Glucose 172 H Lactic Acid Calcium 7.6 L Total Bilirubin 0.8 AST 14 L ALT 17 Alkaline Phosphatase 79 Troponin I Total Protein 5.6 L Albumin 2.9 L Urine Color Urine Appearance Urine pH Ur Specific [place] Urine Protein Urine Glucose (UA) Urine Ketones Urine Blood Urine Nitrite Urine Bilirubin Urine Urobilinogen Ur Leukocyte Esterase Urine WBC (Auto) Urine RBC (Auto) Urine Mucus HIV 1&2 Antibody Screen Negative HIV P24 Antigen Negative Blood Type Antibody Screen Crossmatch 12/03/17 12/03/17 12/03/17 05:25 06:08 06:11 WBC RBC Hgb Hct MCV MCH MCHC RDW Plt Count MPV Absolute Neuts (auto) Neutrophils % Neutrophils % (Manual) Band Neutrophils % Lymphocytes % Lymphocytes % (Manual) Monocytes % Monocytes % (Manual) Eosinophils % Eosinophils % (Manual) Basophils % Basophils % (Manual) Myelocytes % (Man) Promyelocytes % (Man) Blast Cells % (Manual) Nucleated RBC % Metamyelocytes Hypochromia Platelet Estimate Platelet Comment Polychromasia Poikilocytosis Anisocytosis Microcytosis Macrocytosis Target Cells Tear Drop Cells Schistocytes Retic Count 1.02 D PT with INR INR PTT (Actin FS) Anticoagulation Therapy No Result Required. Puncture Site Left radial ABG pH 7.38 ABG pCO2 at Pt Temp 28.8 L ABG pO2 at Pt Temp 99.8 ABG HCO3 16.5 L ABG O2 Sat (Measured) 97.1 ABG O2 Content 12.3 L ABG Base Excess -7.3 L Kale Test Positive VBG pH POC VBG pCO2 POC VBG pO2 Mixed VBG HCO3 O2 Delivery Device Nrb Oxygen Flow Rate 100 Vent Mode No Result Required. Vent Rate No Result Required. Mechanical Rate No Result Required. Pressure Support Vent No Result Required. Sodium Potassium Chloride Carbon Dioxide Anion Gap BUN Creatinine Creat Clearance w eGFR POC Glucometer 189 Random Glucose Lactic Acid Calcium Total Bilirubin AST ALT Alkaline Phosphatase Troponin I Total Protein Albumin Urine Color Urine Appearance Urine pH Ur Specific [place] Urine Protein Urine Glucose (UA) Urine Ketones Urine Blood Urine Nitrite Urine Bilirubin Urine Urobilinogen Ur Leukocyte Esterase Urine WBC (Auto) Urine RBC (Auto) Urine Mucus HIV 1&2 Antibody Screen HIV P24 Antigen Blood Type Antibody Screen Crossmatch Active Medications Generic Name Dose Route Start Last Admin Trade Name Freq PRN Reason Stop Dose Admin Allopurinol 100 mg 12/03/17 10:00 12/03/17 09:52 Zyloprim - PO 100 mg DAILY LIDIA Administration Carvedilol 6.25 mg 12/03/17 10:00 12/03/17 09:38 Coreg - PO 6.25 mg BID LIDIA Administration Darunavir 600 mg 12/03/17 10:00 12/03/17 09:48 Prezista - PO 600 mg BID LIDIA Administration Finasteride 5 mg 12/03/17 10:00 12/03/17 09:50 Proscar - PO 5 mg DAILY LIDIA Administration Furosemide 80 mg 12/03/17 10:00 12/03/17 09:44 Lasix - PO 80 mg DAILY LIDIA Administration Furosemide 40 mg 12/03/17 14:13 Lasix Injection - IVPUSH 12/03/17 14:14 ONCE ONE Heparin Sodium (Porcine) 5,000 unit 12/03/17 06:00 12/03/17 06:15 Heparin - SQ 5,000 unit TID LIDIA Administration Hydralazine HCl 25 mg 12/03/17 10:00 12/03/17 09:37 Apresoline - PO 25 mg BID LIDIA Administration Ceftazidime 1 gm/ Dextrose 100 mls @ 200 mls/hr 12/03/17 14:15 IVPB DAILY LIDIA Protocol Vancomycin HCl 1,000 mg/ 250 mls @ 166.667 mls/hr 12/03/17 14:12 Dextrose IVPB 12/03/17 15:41 ONCE ONE Protocol Insulin Aspart 1 vial 12/03/17 07:00 12/03/17 11:35 Novolog Vial Sliding Scale - SQ 2 units ACHS LIDIA Administration Protocol Nifedipine 60 mg 12/03/17 10:00 12/03/17 09:49 Procardia Xl - PO 60 mg DAILY LIDIA Administration Raltegravir 400 mg 12/03/17 10:00 12/03/17 09:43 Isentress - PO 400 mg BID LIDIA Administration Ranitidine HCl 150 mg 12/03/17 10:00 12/03/17 09:51 Zantac - PO 150 mg DAILY LIDIA Administration Ritonavir 100 mg 12/03/17 10:00 12/03/17 09:45 Norvir - PO 100 mg BID LIDIA Administration Sodium Bicarbonate 650 mg 12/03/17 10:00 12/03/17 09:51 Sodium Bicarbonate - PO 650 mg BID LIDIA Administration Tamsulosin HCl 0.4 mg 12/03/17 10:00 12/03/17 09:41 Flomax - PO 0.4 mg BID LIDIA Administration ASSESSMENT/PLAN 67 year-old male with a PMH significant for HTN, NIDDM, HIV, CLL, HIV, and anemia. Admitted for scrotal and penile pain and swelling, and volume overload from CKD. UTI --ortiz was initially placed in August, changed in September and not since; pus seen from meatus at time of admission --ortiz changed in ED --ceftazadime, Vanc --ID following Scrotal and penile cellulitis --antibiotics as above --US negative for torsion or any other acute findings --urology consult CKD Urinary retention BPH Volume overload --significant b/l LE edema --increase Lasix IVP to 40mg BID --strict I&O --daily weight --continue tamsulosin, finasteride Hypertension --continue carvedilol, nifedipine, hydralazine GERD --continue Zantac NIDDM --Novolog sliding scale coverage h/o Gout --continue allopurinol HIV --continue retrovirals CLL --followed at [facility] by Dr. Glynn --last treated 04/2017, has been stable since then Anemia --Hgb 7.2 --transfuse 2U PRBC, Lasix IV 40mg x 1 between units --repeat cxr in am FEN Fluids: PO intake adequate Electrolytes: replete as indicated Nutrition: diabetic, low sodium DVT prophylaxis: subq heparin Dispo: continues to require inpatient care. Full code. Visit type - Emergency Visit Emergency Visit: Yes ED Registration Date: 12/02/17 Care time: The patient presented to the Emergency Department on the above date and was hospitalized for further evaluation of their emergent condition. - New Patient This patient is new to me today: Yes Date on this admission: 12/05/17 - Critical Care Critical Care patient: Yes Total Critical Care Time (in minutes): 60 Critical Care Statement: The care of this patient involved high complexity decision making to prevent further life threatening deterioration of the patient 's condition and/or to evaluate & treat vital organ system(s) failure or risk of failure.
[2017-12-03] MEDS: PIPERACILLIN/TAZOB 2.25 GM 2.25 GM in DEXTROSE 5%-WATER - 50 ML IVPB SCH (14:47)
--- NOTE | 2017-12-03 15:13 | CONS ---
DATE OF CONSULTATION: DATE OF DICTATION: 12/03/2017 The patient is a 67-year-old male with a history of acquired immunodeficiency syndrome, chronic kidney disease, and a history of obstructive uropathy with longstanding chronic indwelling Lara catheter now evaluated for a urinary tract infection. The patient was recently hospitalized from November 05 through November 13, 2017 with suspected pyelonephritis. A urine culture at that time was positive for Pseudomonas. . He received a course of Zosyn. He has had multiple recent hospitalizations both here and at [facility]. He had been hospitalized with diverticulitis and subsequently hospitalized at [facility] for suspected diverticulitis each time receiving a week to 10 days of IV antibiotic therapy. The patient was discharged on November 13, 2017 with an indwelling Lara catheter. Since that time he has had worsening penile scrotal pain and swelling as well as fever and generalized weakness. He noted pus draining from around the catheter. He presented to the emergency room where he was found to have a fever to 103 and a white blood cell count of 20,000 in the setting of known CLL. He was also noted to have pyuria and lactic acidosis. He has had the indwelling Lara catheter for some time. He was scheduled to follow up with Urology as an outpatient. He denies any suprapubic or flank pain. PAST MEDICAL HISTORY: Positive for acquired immunodeficiency syndrome. He reports having an undetectable viral load and a T-cell count of over 700. Past medical history also includes CLL, hypertension, diabetes mellitus, BPH, chronic kidney disease, and hepatitis C treated in the past. ALLERGIES: LACTOSE. MEDICATIONS: Include Flomax, heparin, Zyloprim, Prezista, Isentress, Norvir, Procardia, Zantac, Lasix, and Proscar. SOCIAL HISTORY: The patient is a former smoker who resides at home. REVIEW OF SYSTEMS: Neurologic: No loss of consciousness, seizure activity, or focal weakness. Cardiac: Negative for chest pain or palpitations. Respiratory: Negative cough or sputum production. Gastrointestinal: Negative vomiting. No diarrhea. Genitourinary: As per HPI. LABORATORY DATA: White count 20.1 with 4 neutrophiles, 95 lymphocytes, hematocrit 22.7, and platelet count 76. BUN 83 and creatinine 4.3. Urinalysis 58 white cells. Urine culture pending. Previous urine culture positive for Pseudomonas. CAT scan of the abdomen and pelvis shows bilateral pleural effusions, hepatosplenomegaly, intraabdominal adenopathy, and right hydronephrosis. Doppler examination is negative for DVT. Scrotal ultrasound shows small bilateral hydroceles. PHYSICAL EXAMINATION: General: He is awake and alert. He is in moderate distress secondary to genital pain. Vital Signs: His temperature is 98.3; his T-max is 103, his blood pressure is 104/57, pulse 73 and regular, and respirations 22. HEENT: Anicteric. Heart: Heart sounds S1, S2. Lungs: Clear. Abdomen: Soft. There is palpable organomegaly and no suprapubic tenderness. Genitalia: Examination of the genitalia area there is marked edema of the penile shaft with erythema and tenderness. There is also tenderness of the scrotum with slight erythema. There is no induration of the epididymitis or testicular enlargement. A Lara catheter is in place. IMPRESSION: 1. Penile/scrotal cellulitis. 2. Rule out chronic cystitis/prostatitis. 3. Obstructive uropathy/chronic indwelling Lara catheter. 4. Positive urine culture for Pseudomonas. 5. Chronic kidney disease. 6. Acquired immunodeficiency syndrome. 7. Chronic lymphocytic leukemia. 8. Chronic liver disease. 9. Neutropenia. 10. Lactic acidosis. Await cultures; obtain urine for GC and chlamydia, empiric antibiotic coverage with ceftazidime, and vancomycin adjusted for chronic kidney disease, Urology evaluation, and antiretroviral therapy. We will follow. Thank you for the kind referral. MIKE STEINER M.D. [id number]
[2017-12-03] MEDS ORDERED: RANITIDINE HCL 150 MG TABLET (FP) PO ONE (17:57)
--- NOTE | 2017-12-03 21:27 | EKG ---
Test Reason : Blood Pressure : / mmHG Vent. Rate : 103 BPM Atrial Rate : 103 BPM P-R Int : 152 ms QRS Dur : 092 ms QT Int : 334 ms P-R-T Axes : 075 060 059 degrees QTc Int : 437 ms SINUS TACHYCARDIA POSSIBLE LEFT ATRIAL ENLARGEMENT LEFT VENTRICULAR HYPERTROPHY WITH REPOLARIZATION ABNORMALITY ABNORMAL ECG WHEN COMPARED WITH ECG OF 09-NOV-2017 12:55, VENT. RATE HAS INCREASED BY [address] NOW DEPRESSED IN LATERAL LEADS T WAVE INVERSION NOW EVIDENT IN LATERAL LEADS Confirmed by BAKARI PÉREZ MD ([id number]) on 12/03/2017 9:26:55 PM Referred By: Confirmed By:BAKARI PÉREZ MD
[2017-12-03] MEDS: CEFTAZIDIME PENTAHYDRATE 1 GM in DEXTROSE 5%-WATER - 50 ML IVPB SCH (22:44)
[2017-12-04] MEDS ORDERED: PT OWN MED DRAWER 7, Y5N ONE ×5 (00:37→10:43)
[2017-12-04] MEDS ORDERED: FUROSEMIDE 40 MG/4 ML INJECTABLE VIAL IVPUSH ONE (00:45)
[2017-12-04 06:09] LABS: SERUM IRON SATURATION 5 % (15-55); TOTAL IRON BINDING CAPACITY 173 ug/dL (250-450); UIBC 164 ug/dL (111-343)
[2017-12-04] MEDS: INSULIN SLIDING SCALE (NOVOLOG) 1 VIAL SQ SCH ×4 (06:09→21:33)
[2017-12-04] MEDS: FUROSEMIDE 40 MG/4 ML INJECTABLE VIAL IVPUSH SCH ×2 (06:09→14:21)
[2017-12-04] MEDS: HEPARIN NA (PORCINE) 5,000 UNITS/ML 1ML VIAL SQ SCH (06:12)
[2017-12-04 07:19] LABS: EOS % 0.1 % (0-4.5); HEMATOCRIT 25.7 % (35.4-49); HEMOGLOBIN 8.2 GM/dL (11.7-16.9); LYMPH % 97.2 % (8-40); MCH 28.4 pg (25.7-33.7); MCHC 31.9 g/dl (32.0-35.9); MEAN CELL VOLUME 89.2 fl (80-96); MEAN PLT VOLUME 8.2 fl (7.5-11.1); MONO % 1.1 % (3.8-10.2); NEUT % 1.6 % (42.8-82.8); PLATELET COUNT 77 K/MM3 (134-434); RBC 2.89 M/mm3 (4.00-5.60); RDW 16.8 % (11.9-15.9); WHITE BLOOD COUNT 17.4 K/mm3 (4.0-10.0)
[2017-12-04 08:24] LABS: ALBUMIN 2.7 g/dl (3.4-5.0); ALK PHOS 71 U/L (45-117); ANION GAP 14 MMOL/L (8-16); BILIRUBIN,TOTAL 0.6 mg/dL (0.2-1); BLOOD UREA NITROGEN 101 mg/dL (7-18); CALCIUM 7.8 mg/dL (8.5-10.1); CHLORIDE 108 mmol/L (98-107); CO2 16 mmol/L (21-32); CREATININE 4.9 mg/dL (0.55-1.3); GLUCOSE,RANDOM 127 mg/dL (74-106); MAGNESIUM 2.9 mg/dL (1.8-2.4); PHOSPHOROUS 7.6 mg/dL (2.5-4.9); POTASSIUM 4.1 mmol/L (3.5-5.1); SGOT/AST 15 U/L (15-37); SGPT/ALT 15 U/L (13-61); SODIUM 138 mmol/L (136-145); TOT PROT 5.5 g/dl (6.4-8.2)
[2017-12-04] MEDS: CARVEDILOL 6.25 MG TABLET (FP) PO SCH ×2 (09:12→21:31)
[2017-12-04] MEDS: NIFEdipine E.R 60 MG TABLET (UD) PO SCH (09:12)
[2017-12-04] MEDS: SODIUM BICARBONATE 650 MG TABLET PO SCH ×2 (09:12→21:30)
[2017-12-04] MEDS: TAMSULOSIN HCL 0.4 MG CAP PO SCH ×2 (09:12→21:30)
[2017-12-04] MEDS: ALLOPURINOL 100 MG TABLET (FP) PO SCH (09:12)
[2017-12-04] MEDS: hydrALAZINE HCL 25 MG TABLET (FP) PO SCH ×2 (09:12→21:30)
[2017-12-04] MEDS: RANITIDINE HCL 150 MG TABLET (FP) PO SCH (09:12)
[2017-12-04] MEDS: FINASTERIDE 5 MG TABLET (FP) PO SCH (09:12)
[2017-12-04] MEDS: RILPIVIRINE HCL 25 MG TABLET PO SCH (09:13)
[2017-12-04] MEDS: RITONAVIR 100 MG TABLET PO SCH ×2 (09:14→21:32)
[2017-12-04] MEDS: DARUNAVIR ETHANOLATE 600 MG TAB PO SCH ×2 (09:14→21:32)
[2017-12-04] MEDS: RALTEGRAVIR POTASSIUM 400 MG TAB PO SCH ×2 (10:20→21:32)
[2017-12-04] MEDS: CEFTAZIDIME PENTAHYDRATE 1 GM in DEXTROSE 5%-WATER - 50 ML IVPB SCH (10:59)
[2017-12-04 12:36] LABS: PLATELET ESTIMATE DECREASED
--- NOTE | 2017-12-04 13:14 | PN ---
Physical Exam: SUBJECTIVE: Patient seen and examined. Does not feel any better after transfusion. OBJECTIVE: Vital Signs Period Temp Pulse Resp BP Sys/Ventura Pulse Ox Last 24 Hr 98.1 F-98.4 F 71-76 20-22 104-129/53-57 94-96 GENERAL: The patient is awake, alert, and fully oriented, in no acute distress. Pale, weak-appearing. LUNGS: Breath sounds equal, clear to auscultation bilaterally, no wheezes, no crackles, no accessory muscle use. HEART: Regular rate and rhythm, S1, S2 ABDOMEN: Markedly distended, not tender, no guarding, no rebound : Ortiz in place draining cloudy yellow urine; no pus around meatus; penis and scrotum are swollen and tender LOWER EXTREMITIES: LLE 3+ pitting edema; RLE 2+ edema; no calf tenderness NEUROLOGICAL: Cranial nerves II through XII grossly intact. Normal speech, gait not observed Laboratory Results - last 24 hr 12/02/17 12/03/17 12/03/17 21:22 05:14 05:14 WBC RBC Hgb Hct MCV MCH MCHC RDW Plt Count MPV Absolute Neuts (auto) Total Counted Neutrophils % Neutrophils % (Manual) Lymphocytes % Lymphocytes % (Manual) Monocytes % Monocytes % (Manual) Eosinophils % Basophils % Nucleated RBC % Plasma Cells Platelet Estimate Sodium Potassium Chloride Carbon Dioxide Anion Gap BUN Creatinine Creat Clearance w eGFR POC Glucometer Random Glucose Calcium Phosphorus Magnesium Iron 9 L TIBC 173 L Iron Saturation 5 L Transferrin 138 L Total Bilirubin AST ALT Alkaline Phosphatase Total Protein Albumin Stool Occult Blood HIV 1&2 Ag/Ab, 4th Gen HIV 1&2 Antibody Screen Preliminary positive HIV P24 Antigen Negative Blood Type B NEGATIVE Antibody Screen Negative Crossmatch See Detail 12/03/17 12/03/17 12/03/17 08:00 16:44 21:38 WBC RBC Hgb Hct MCV MCH MCHC RDW Plt Count MPV Absolute Neuts (auto) Total Counted Neutrophils % Neutrophils % (Manual) Lymphocytes % Lymphocytes % (Manual) Monocytes % Monocytes % (Manual) Eosinophils % Basophils % Nucleated RBC % Plasma Cells Platelet Estimate Sodium Potassium Chloride Carbon Dioxide Anion Gap BUN Creatinine Creat Clearance w eGFR POC Glucometer 200 132 Random Glucose Calcium Phosphorus Magnesium Iron TIBC Iron Saturation Transferrin Total Bilirubin AST ALT Alkaline Phosphatase Total Protein Albumin Stool Occult Blood HIV 1&2 Ag/Ab, 4th Gen Cancelled HIV 1&2 Antibody Screen HIV P24 Antigen Blood Type Antibody Screen Crossmatch 12/04/17 12/04/17 12/04/17 05:11 06:30 06:30 WBC 17.4 H RBC 2.89 L Hgb 8.2 L Hct 25.7 L MCV 89.2 MCH 28.4 MCHC 31.9 L RDW 16.8 H Plt Count 77 L MPV 8.2 Absolute Neuts (auto) 0.3 L Total Counted 100 Neutrophils % 1.6 L Neutrophils % (Manual) 3.0 L Lymphocytes % 97.2 H Lymphocytes % (Manual) 92.0 H* Monocytes % 1.1 L D Monocytes % (Manual) 2 L D Eosinophils % 0.1 D Basophils % 0.0 Nucleated RBC % 0 Plasma Cells 1 Platelet Estimate Decreased Sodium 138 Potassium 4.1 Chloride 108 H Carbon Dioxide 16 L Anion Gap 14 BUN 101 H Creatinine 4.9 H Creat Clearance w eGFR 11.98 POC Glucometer 140 Random Glucose 127 H Calcium 7.8 L Phosphorus 7.6 H Magnesium 2.9 H Iron TIBC Iron Saturation Transferrin Total Bilirubin 0.6 AST 15 ALT 15 Alkaline Phosphatase 71 Total Protein 5.5 L Albumin 2.7 L Stool Occult Blood HIV 1&2 Ag/Ab, 4th Gen HIV 1&2 Antibody Screen HIV P24 Antigen Blood Type Antibody Screen Crossmatch 12/04/17 12/04/17 07:00 11:19 WBC RBC Hgb Hct MCV MCH MCHC RDW Plt Count MPV Absolute Neuts (auto) Total Counted Neutrophils % Neutrophils % (Manual) Lymphocytes % Lymphocytes % (Manual) Monocytes % Monocytes % (Manual) Eosinophils % Basophils % Nucleated RBC % Plasma Cells Platelet Estimate Sodium Potassium Chloride Carbon Dioxide Anion Gap BUN Creatinine Creat Clearance w eGFR POC Glucometer 124 Random Glucose Calcium Phosphorus Magnesium Iron TIBC Iron Saturation Transferrin Total Bilirubin AST ALT Alkaline Phosphatase Total Protein Albumin Stool Occult Blood Positive HIV 1&2 Ag/Ab, 4th Gen HIV 1&2 Antibody Screen HIV P24 Antigen Blood Type Antibody Screen Crossmatch Active Medications Generic Name Dose Route Start Last Admin Trade Name Freq PRN Reason Stop Dose Admin Allopurinol 100 mg 12/03/17 10:00 12/04/17 09:12 Zyloprim - PO 100 mg DAILY [facility] Administration Carvedilol 6.25 mg 12/03/17 10:00 12/04/17 09:12 Coreg - PO 6.25 mg BID [facility] Administration Darunavir 600 mg 12/03/17 10:00 12/04/17 09:14 Prezista - PO 600 mg BID [facility] Administration Finasteride 5 mg 12/03/17 10:00 12/04/17 09:12 Proscar - PO 5 mg DAILY [facility] Administration Furosemide 40 mg 12/04/17 06:00 12/04/17 06:09 Lasix Injection - IVPUSH 40 mg BID@0600,1400 [facility] Administration Heparin Sodium (Porcine) 5,000 unit 12/03/17 06:00 12/04/17 06:12 Heparin - SQ Not Given TID COUNTS INCLUDE 234 BEDS AT THE [facility] Hydralazine HCl 25 mg 12/03/17 10:00 12/04/17 09:12 Apresoline - PO 25 mg BID COUNTS INCLUDE 234 BEDS AT THE [facility] Administration Ceftazidime 1 gm/ Dextrose 50 mls @ 100 mls/hr 12/03/17 14:15 12/04/17 10:59 IVPB 100 mls/hr DAILY COUNTS INCLUDE 234 BEDS AT THE [facility] Administration Protocol Insulin Aspart 1 vial 12/03/17 07:00 12/04/17 11:29 Novolog Vial Sliding Scale - SQ Not Given ACHS COUNTS INCLUDE 234 BEDS AT THE [facility] Protocol Nifedipine 60 mg 12/03/17 10:00 12/04/17 09:12 Procardia Xl - PO 60 mg DAILY [facility] Administration Raltegravir 400 mg 12/03/17 10:00 12/04/17 10:20 Isentress - PO 400 mg BID [facility] Administration Ranitidine HCl 150 mg 12/03/17 10:00 12/04/17 09:12 Zantac - PO 150 mg DAILY [facility] Administration Ritonavir 100 mg 12/03/17 10:00 12/04/17 09:14 Norvir - PO 100 mg BID [facility] Administration Sodium Bicarbonate 650 mg 12/03/17 10:00 12/04/17 09:12 Sodium Bicarbonate - PO 650 mg BID [facility] Administration Tamsulosin HCl 0.4 mg 12/03/17 10:00 12/04/17 09:12 Flomax - PO 0.4 mg BID [facility] Administration ASSESSMENT/PLAN 67 year-old male with a PMH significant for HTN, CAD, Type II DM, HIV/AIDS, Hep C, cirrhosis, CKD, chronic anemia, CLL, BPH, urinary retention with ortiz x 3 months. Admitted for UTI. Pseudomonas UTI --10/30/17 urine culture grew pseudomonas --empiric cetazedime (day #2) Penile shaft cellulitis --antibiotics as above --C&G ordered BPH Urinary retention --ortiz was placed 3 months ago for retention, was changed 2 months ago and not since --on presentation to ED pus observed around meatus; ortiz was dc'd and new one inserted --12/02 CTAP: mild right hydronephrosis and hydroureter without evidence of obstruction --continue tamsulosin --seen by urology, for cystoscopy on to assess prostate CKD --significant volume overload on exam --b/l pleural effusions on CT --renal function worsening BUN/Cr 101/4.9 --Mg and phos elevated --mild uremic symptoms --continue Lasix IV 40mg BID --continue sodium bicarb CLL --followed at [facility], last treatment 04/2017 Chronic anemia --transfused 2 U PRBC with modest response, 7.2-->8.2 --seen and evaluated by heme/onc; if cystoscopy on will need to transfuse to goal of Hct 30% and will need to give 2U platelets 5-6 hours prior to procedure Hypertension Coronary artery disease --continue carvedilol, nifedipine, hydralazine Type II DM --Novolog sliding scale coverage Gout --continue allopurinol HIV/AIDS --continue retrovirals Hepatitis C --s/p Rosaliaoni --LFTs stable FEN Fluids: PO intake adequate Electrolytes: replete as indicated Nutrition: diabetic low sodium DVT prophylaxis: subq heparin Dispo: continues to require inpatient care. Visit type - Emergency Visit Emergency Visit: Yes ED Registration Date: 12/02/17 Care time: The patient presented to the Emergency Department on the above date and was hospitalized for further evaluation of their emergent condition. - New Patient This patient is new to me today: No - Critical Care Critical Care patient: Yes Total Critical Care Time (in minutes): 60 Critical Care Statement: The care of this patient involved high complexity decision making to prevent further life threatening deterioration of the patient 's condition and/or to evaluate & treat vital organ system(s) failure or risk of failure.
[2017-12-04 13:31] LABS: SMUDGE CELLS 2+
--- NOTE | 2017-12-04 14:51 | CON.GI ---
Consult Consult Specialty:: GI Referred by:: Hospitalist: Rajni Penaloza NP Reason for Consultation:: Guaiac + stool - History of Present Illness Chief Complaint: I have had this ortiz catheter in since August History of Present Illness: 66 M admitted for evaluation of scrotal / penile swelling. He has had a ortiz in place since 08/29 and he explains that there is a proposed cystoscopy this coming . Asked to evaluate guaiac positive stool and anemia. He has been anemic since 2012. There has been no acute GI bleeding and he denies any focal GI complaints. He was guaiac positive in 09/29 as well. At that time he was evaluated by senior professional services consultant Dr. Klaus Charles. Mr Avila follows at [facility] for the majority of his care. His vehicle body builder is Dr. Nabor Contreras. Mr. Avila believes that his last EGD and colonoscopy were about 5 years ago and that they were ok. There is no family history of colorectal cancer or other GI malignancy - History Source History Provided By: Patient - Past Medical History Cardio/Vascular: Yes: HTN Hepatobiliary: Yes: Cirrhosis, Hepatitis C Renal/: Yes: Renal Inusuff, BPH, Other (hesitancy, intermittemncy, poor stream ) Heme/Onc: Yes: Other (CLL) Infectious Disease: Yes: HIV Endocrine: Yes: Diabetes Mellitus Additional Medical History: lymphocytic leuckemia - Past Surgical History Additional Surgical History: Lymph node biopsy - Alcohol/Substance Use Hx Alcohol Use: Yes (Former alcohol abuse) History of Substance Use: reports: Cocaine (IV, quit x 25 yrs), Heroin ( Intravenous) - Smoking History Smoking history: Former smoker Have you smoked in the past 12 months: No Aproximately how many cigarettes per day: 0 If you are a former smoker, when did you quit?: > 25 yrs ago - Social History Usual Living Arrangement: Alone ADL: Independent 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 [employer] Place of : [facility] History of Recent Travel: No Home Medications - Allergies Allergies/Adverse Reactions: Allergies Allergy/AdvReac Type Severity Reaction Status Date / Time lactose AdvReac Verified 12/02/17 15:50 - Home Medications Home Medications: Ambulatory Orders Ritonavir [Norvir] 100 mg PO BID #0 tablet 01/07/13 Allopurinol [Zyloprim -] 100 mg PO DAILY 09/01/15 Carvedilol [Coreg -] 6.25 mg PO BID 09/01/15 Furosemide [Lasix -] 80 mg PO DAILY 09/01/15 Nifedipine [Nifedical Xl] 60 mg PO DAILY 09/01/15 Raltegravir [Isentress] 400 mg PO BID 09/01/15 Rilpivirine HCl [Edurant] 25 mg PO DAILY 09/01/15 Darunavir Ethanolate [Prezista -] 600 mg PO BID 07/09/16 Ranitidine [Zantac -] 150 mg PO DAILY 14 Days tablet 09/21/17 Tamsulosin HCl [Flomax -] 0.4 mg PO BID 14 Days cap.er.24h 09/21/17 Finasteride [Proscar -] 5 mg PO DAILY 11/05/17 Sitagliptin Phosphate [Januvia] 25 mg PO DAILY 11/05/17 Sodium Bicarbonate - 650 mg PO BID 11/05/17 hydrALAZINE HCL [Apresoline -] 25 mg PO BID tablet 11/13/17 Family Disease History - Family Disease History Family Disease History: Heart Disease: Father ( of [place] at 55, ETOH), Other: Father, Mother (Dementia, hypertension), Brother (2, healthy), Sister (4, one with hypertension), Daughter (1, healthy) Other Family History: No family history of colorectal cancer or other GI malignancy Review of Systems - Review of Systems Constitutional: denies: Fever Cardiovascular: denies: Chest Pain Respiratory: denies: Cough Genitourinary: reports: Testicular Swelling Musculoskeletal: denies: Back Pain Physical Exam-GI Vital Signs: Vital Signs Temperature 98.3 F 12/04/17 13:14 Pulse Rate 71 12/04/17 14:25 Respiratory Rate 18 12/04/17 14:25 Blood Pressure 107/52 L 12/04/17 14:25 O2 Sat by Pulse Oximetry (%) 94 L 12/04/17 09:00 Constitutional: Yes: Calm Eyes: No: Sclera Icterus Cardiovascular: Yes: Regular Rate and Rhythm Respiratory: Yes: CTA Bilaterally Gastrointestinal Inspection: Yes: Hernia (small umbilical hernia without bowel or fluid). No: Distention ...Auscultate: Yes: Normoactive Bowel Sounds ...Palpate: Yes: Hepatomegaly, Soft, Splenomegaly, Tenderness, Rebound. No: Tenderness ...Percussion: No: Tympanitic ...Rectal Exam: Yes: Other (No external lesions, no masses, scant guaiac negative yellow stool) Edema: No (No LE edema) Neurological: Yes: Alert, Oriented Labs: CBC, BMP 12/04/17 06:30 12/04/17 06:30 INR, PTT INR 1.28 (0.83-1.09) H 12/02/17 16:55 Imaging - Results Cat Scan: Report Reviewed (extensive lymphadenopathy, hepatosplenomegaly, right sided hydronephrosis,) Problem List - Problems (1) Stool guaiac positive Assessment/Plan: No overt bleeding reported and No acute interventions planned at this time Will need EGD for varices surveillance as well as colonoscopy for colorectal cancer screening / further evaluation of guaiac positive stool when acute issues are resolved. Given multiple comorbidities and the fact that his hepatology / hematology care is performed at [facility], I explained that consideration should be taken to have this performed at his tertiary care center. He explains that he is due for follow-up with his vehicle body builder Dr. Contreras at [facility] in 1-2 months. Code(s): R19.5 - OTHER FECAL ABNORMALITIES
--- NOTE | 2017-12-04 15:18 | PN ---
Progress Note, Physician History of Present Illness: Pt seen and examined at bedside. He is awake and alert. He denies shortness of breath. He complains of testicular discomfort. - Current Medication List Current Medications: Active Medications Acetaminophen (Tylenol -) 650 mg PO Q6H PRN PRN Reason: PAIN LEVEL 1-5 Allopurinol (Zyloprim -) 100 mg PO DAILY [facility] Last Admin: 12/04/17 09:12 Dose: 100 mg Carvedilol (Coreg -) 6.25 mg PO BID [facility] Last Admin: 12/04/17 09:12 Dose: 6.25 mg Darunavir (Prezista -) 600 mg PO BID [facility] Last Admin: 12/04/17 09:14 Dose: 600 mg Finasteride (Proscar -) 5 mg PO DAILY [facility] Last Admin: 12/04/17 09:12 Dose: 5 mg Furosemide (Lasix Injection -) 40 mg IVPUSH BID@0600,1400 [facility] Last Admin: 12/04/17 14:21 Dose: 40 mg Hydralazine HCl (Apresoline -) 25 mg PO BID [facility] Last Admin: 12/04/17 09:12 Dose: 25 mg Ceftazidime 1 gm/ Dextrose 50 mls @ 100 mls/hr IVPB DAILY [facility]; Protocol Last Admin: 12/04/17 10:59 Dose: 100 mls/hr Insulin Aspart (Novolog Vial Sliding Scale -) 1 vial SQ ACHS [facility]; Protocol Last Admin: 12/04/17 11:29 Dose: Not Given Lidocaine HCl (Xylocaine 2% Jelly) 1 applic TP DAILY [facility] Stop: 12/06/17 10:01 Nifedipine (Procardia Xl -) 60 mg PO DAILY [facility] Last Admin: 12/04/17 09:12 Dose: 60 mg Raltegravir (Isentress -) 400 mg PO BID [facility] Last Admin: 12/04/17 10:20 Dose: 400 mg Ranitidine HCl (Zantac -) 150 mg PO DAILY [facility] Last Admin: 12/04/17 09:12 Dose: 150 mg Ritonavir (Norvir -) 100 mg PO BID [facility] Last Admin: 12/04/17 09:14 Dose: 100 mg Sodium Bicarbonate (Sodium Bicarbonate -) 650 mg PO BID [facility] Last Admin: 12/04/17 09:12 Dose: 650 mg Tamsulosin HCl (Flomax -) 0.4 mg PO BID [facility] Last Admin: 12/04/17 09:12 Dose: 0.4 mg - Objective Vital Signs: Vital Signs Temperature 98.3 F 12/04/17 13:14 Pulse Rate 71 12/04/17 14:25 Respiratory Rate 18 12/04/17 14:25 Blood Pressure 107/52 L 12/04/17 14:25 O2 Sat by Pulse Oximetry (%) 94 L 12/04/17 09:00 Constitutional: Yes: Calm Eyes: Yes: Conjunctiva Clear HENT: Yes: Atraumatic Neck: Yes: Supple Cardiovascular: Yes: S1, S2 Respiratory: Yes: CTA Bilaterally Gastrointestinal: Yes: Soft Genitourinary: Yes: Lara Present Edema: Yes Edema: LLE: 1+, RLE: 1+ Neurological: Yes: Oriented Psychiatric: Yes: Oriented Labs: CBC, BMP 12/04/17 06:30 12/04/17 06:30 INR, PTT INR 1.28 (0.83-1.09) H 12/02/17 16:55 Problem List - Problems (1) Renal insufficiency Code(s): N28.9 - DISORDER OF KIDNEY AND URETER, UNSPECIFIED (2) Anemia Code(s): D64.9 - ANEMIA, UNSPECIFIED (3) CKD (chronic kidney disease) Code(s): N18.9 - CHRONIC KIDNEY DISEASE, UNSPECIFIED (4) CLL (chronic lymphocytic leukemia) Code(s): C91.90 - LYMPHOID LEUKEMIA, UNSPECIFIED NOT HAVING ACHIEVED REMISSION (5) HIV (human immunodeficiency virus infection) Code(s): B20 - HUMAN IMMUNODEFICIENCY VIRUS [HIV] DISEASE Assessment/Plan Current Medications Generic Name Dose Route Start Last Admin Trade Name Freq PRN Reason Stop Dose Admin Acetaminophen 650 mg 12/04/17 13:36 Tylenol - PO Q6H PRN PAIN LEVEL 1-5 Allopurinol 100 mg 12/03/17 10:00 12/04/17 09:12 Zyloprim - PO 100 mg DAILY [facility] Administration Carvedilol 6.25 mg 12/03/17 10:00 12/04/17 09:12 Coreg - PO 6.25 mg BID [facility] Administration Darunavir 600 mg 12/03/17 10:00 12/04/17 09:14 Prezista - PO 600 mg BID [facility] Administration Finasteride 5 mg 12/03/17 10:00 12/04/17 09:12 Proscar - PO 5 mg DAILY [facility] Administration Furosemide 40 mg 12/04/17 06:00 12/04/17 14:21 Lasix Injection - IVPUSH 40 mg BID@0600,1400 [facility] Administration Hydralazine HCl 25 mg 12/03/17 10:00 12/04/17 09:12 Apresoline - PO 25 mg BID [facility] Administration Ceftazidime 1 gm/ Dextrose 50 mls @ 100 mls/hr 12/03/17 14:15 12/04/17 10:59 IVPB 100 mls/hr DAILY [facility] Administration Protocol Insulin Aspart 1 vial 12/03/17 07:00 12/04/17 11:29 Novolog Vial Sliding Scale - SQ Not Given ACHS [facility] Protocol Lidocaine HCl 1 applic 12/04/17 13:45 Xylocaine 2% Jelly TP 12/06/17 10:01 DAILY [facility] Nifedipine 60 mg 12/03/17 10:00 12/04/17 09:12 Procardia Xl - PO 60 mg DAILY [facility] Administration Raltegravir 400 mg 12/03/17 10:00 12/04/17 10:20 Isentress - PO 400 mg BID [facility] Administration Ranitidine HCl 150 mg 12/03/17 10:00 12/04/17 09:12 Zantac - PO 150 mg DAILY [facility] Administration Ritonavir 100 mg 12/03/17 10:00 12/04/17 09:14 Norvir - PO 100 mg BID [facility] Administration Sodium Bicarbonate 650 mg 12/03/17 10:00 12/04/17 09:12 Sodium Bicarbonate - PO 650 mg BID [facility] Administration Tamsulosin HCl 0.4 mg 12/03/17 10:00 12/04/17 09:12 Flomax - PO 0.4 mg BID [facility] Administration Impression 1. CKD 2. urinary retention 3. HIV 4. liver cirrhosis 5. Hep C 6. nephrolothiasis 7. DM 8. BPH 9. HTN 10. CLL 11. anemia 12. scrotal cellulitis Plan - cont with lasix - cont with po bicarb - abx per ID - repeat labs in am - follow cultures - will follow Dr Wells
--- NOTE | 2017-12-04 15:29 | CONSULT ---
Consult Consult Specialty:: Heme/Onc Referred by:: RAHEEM Penaloza Reason for Consultation:: History of CLL Anemia THrombocytopenia going to cystoscopy - History of Present Illness Chief Complaint: I came for my ortiz that maty had since august History of Present Illness: 67M with history of HTN, DM, HIV, CLL, cirrhosis, CKD, chronic anemia, BPH, Hep C (s/p Harvoni tx) presented to the ED with complaints of fever, shortness of breath, cough, generalized weakness, scrotal and penile swelling. Pt reports that he had a ortiz catheter since august 29, 2017 and does not know why its been in this long and he does not know he is unable to empty his bladder. Patient is going for cystoscopy in 2 days and we were asked to evaluate this patient given his anemia and thrombocytopenia. Patient's Hb was 7.2 and he was given one unit and it came up to 8.2 this morning and patient got another blood transfusion after that this morning. Patient's platelets were 61 thousand on november 12 2017 and on admission were 96thousand and today they are 77 thousand. Patient denies rectal bleeding but was noted to be occult positive in the stool nd GI consulted. Patient endorses gradual penile and scrotal pain and swelling and creamy white discharge from the penis which is what prompted him to come to the hospital. Patient states he was treated for CLL and completed treatment 04/2016 and has been monitored by Dr. Glynn at [facility]. He states he was treated with Obinutuzumab because he could not get other chemotherapeutic agents due to kidney failure. Patient states he lost about 15 pounds during his last hospitalization but has been gaining the weight back Denies family history of cancer Social History: Quit all toxic habits and has been in recovery for 28 years - History Source History Provided By: Patient, Medical Record - Past Medical History Cardio/Vascular: Yes: HTN Hepatobiliary: Yes: Cirrhosis, Hepatitis C Renal/: Yes: Renal Inusuff, BPH, Other (hesitancy, intermittemncy, poor stream ) Infectious Disease: Yes: HIV Endocrine: Yes: Diabetes Mellitus Additional Medical History: lymphocytic leuckemia - Past Surgical History Past Surgical History: Yes: None Additional Surgical History: Lymph node biopsy - Alcohol/Substance Use Hx Alcohol Use: Yes (Former alcohol abuse) History of Substance Use: reports: Cocaine (IV, quit x 25 yrs), Heroin ( Intravenous) - Smoking History Smoking history: Former smoker Have you smoked in the past 12 months: No Aproximately how many cigarettes per day: 0 If you are a former smoker, when did you quit?: > 25 yrs ago - Social History Usual Living Arrangement: Alone ADL: Independent 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 [employer] History of Recent Travel: No Home Medications - Allergies Allergies/Adverse Reactions: Allergies Allergy/AdvReac Type Severity Reaction Status Date / Time lactose AdvReac Verified 12/02/17 15:50 - Home Medications Home Medications: Ambulatory Orders Ritonavir [Norvir] 100 mg PO BID #0 tablet 01/07/13 Allopurinol [Zyloprim -] 100 mg PO DAILY 09/01/15 Carvedilol [Coreg -] 6.25 mg PO BID 09/01/15 Furosemide [Lasix -] 80 mg PO DAILY 09/01/15 Nifedipine [Nifedical Xl] 60 mg PO DAILY 09/01/15 Raltegravir [Isentress] 400 mg PO BID 09/01/15 Rilpivirine HCl [Edurant] 25 mg PO DAILY 09/01/15 Darunavir Ethanolate [Prezista -] 600 mg PO BID 07/09/16 Ranitidine [Zantac -] 150 mg PO DAILY 14 Days tablet 09/21/17 Tamsulosin HCl [Flomax -] 0.4 mg PO BID 14 Days cap.er.24h 09/21/17 Finasteride [Proscar -] 5 mg PO DAILY 11/05/17 Sitagliptin Phosphate [Januvia] 25 mg PO DAILY 11/05/17 Sodium Bicarbonate - 650 mg PO BID 11/05/17 hydrALAZINE HCL [Apresoline -] 25 mg PO BID tablet 11/13/17 Family Disease History - Family Disease History Family Disease History: Heart Disease: Father ( of [place] at 55, ETOH), Other: Father, Mother (Dementia, hypertension), Brother (2, healthy), Sister (4, one with hypertension), Daughter (1, healthy) Other Family History: No family history of colorectal cancer or other GI malignancy Review of Systems - Review of Systems Constitutional: reports: Weakness. denies: Chills, Fever HENT: reports: No Symptoms Neck: reports: No Symptoms Cardiovascular: reports: Shortness of Breath Respiratory: reports: Cough, SOB on Exertion Gastrointestinal: reports: Bloating. denies: Rectal Bleeding Genitourinary: reports: Testicular Swelling, Other (penile swelling with discharge at the uretreal meatus) Physical Exam Vital Signs: Vital Signs Temperature 98.3 F 12/04/17 13:14 Pulse Rate 71 12/04/17 14:25 Respiratory Rate 18 12/04/17 14:25 Blood Pressure 107/52 L 12/04/17 14:25 O2 Sat by Pulse Oximetry (%) 94 L 12/04/17 09:00 Constitutional: Yes: No Distress, Calm Eyes: Yes: Other (conjunctival pallor) HENT: Yes: Atraumatic, Normocephalic Neck: Yes: Lymphadenopathy (builateral cervical) Cardiovascular: Yes: Regular Rate and Rhythm Respiratory: Yes: Other (right side clear left side with crackles) Gastrointestinal: Yes: Soft, Ascites, Distention, Hepatomegaly, Splenomegaly. No: Tenderness Renal/: Yes: Scrotal Edema, Urethral Discharge, Other (penile edema and penile white creamy discharge) Extremities: Yes: Other (bilateral inguinal and axillary adenopathy) Edema: Yes Edema: LLE: 1+, RLE: 1+ Neurological: Yes: Alert, Oriented Psychiatric: Yes: Alert, Oriented Labs: CBC, BMP 12/04/17 06:30 12/04/17 06:30 Imaging - Results Chest X-ray: Report Reviewed, Image Reviewed Cat Scan: Report Reviewed, Image Reviewed Ultrasound: Report Reviewed Assessment/Plan 67M with extensive PMH presented to the hospital with multiple complaints including scrotal swelling and penil discharge associated with weakness shortness of breath and cough. Patient was febirle upon presentation. 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 Patient also is anemic and thrombocytopenic and going to cystoscopy. 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
[2017-12-04 17:34] LABS: SMUDGE CELLS FEW
[2017-12-04] MEDS ORDERED: INSULIN (NOVOLOG) ASPART 100 UNITS/ML 10ML VIAL ONE (18:10)
--- NOTE | 2017-12-04 18:53 | PN ---
Teaching Attending Note Name of Resident: Jovani Ramirez ATTENDING PHYSICIAN STATEMENT I saw and evaluated the patient. I reviewed the resident's note and discussed the case with the resident. I agree with the resident's findings and plan as documented. SUBJECTIVE: Patient seen and examined Multiple co-morbid medical problems including CKD, CLL, anemia, throbocytopenia , HIV, infection, scrotal edema and cellulitis. Scheduled for cystoscopy. Will transfer to Hct closer to 30%. Will give platelets prior to procedure to improve platelet number and function PE - hepatosplenomegaly , diffuse lymphadenopathy. Ascites Scrotal and penile edema and tenderness. To monitor hemogram and labs. OBJECTIVE: ASSESSMENT AND PLAN:
[2017-12-04] MEDS: LIDOCAINE HCL 2% JELLY (30 ML/TUBE) TP SCH (21:31)
[2017-12-04] MEDS: SUCRALFATE 1 GM TABLET (FP) PO PRN (21:36)
[2017-12-04] MEDS: ACETAMINOPHEN 325 MG TABLET (FP) PO PRN (22:19)
[2017-12-04] MEDS: MELATONIN 5 MG TABLETS PO PRN (22:46)
[2017-12-05] MEDS ORDERED: MAG HYDROX/AL HYDROX/SIMETH 30 ML UNIT-DOSE CUP PO ONE (03:30)
[2017-12-05] MEDS ORDERED: PT OWN MED DRAWER 7, Y5N ONE ×3 (03:38→13:46)
[2017-12-05] MEDS: SUCRALFATE 1 GM TABLET (FP) PO PRN ×3 (03:45→21:48)
[2017-12-05] MEDS: FUROSEMIDE 40 MG/4 ML INJECTABLE VIAL IVPUSH SCH (05:39)
[2017-12-05] MEDS: INSULIN SLIDING SCALE (NOVOLOG) 1 VIAL SQ SCH ×4 (06:15→22:39)
[2017-12-05] MEDS: SODIUM BICARBONATE 650 MG TABLET PO SCH ×2 (09:04→21:48)
[2017-12-05] MEDS: TAMSULOSIN HCL 0.4 MG CAP PO SCH ×2 (09:04→21:48)
[2017-12-05] MEDS: ALLOPURINOL 100 MG TABLET (FP) PO SCH (09:04)
[2017-12-05] MEDS: hydrALAZINE HCL 25 MG TABLET (FP) PO SCH ×2 (09:04→21:48)
[2017-12-05] MEDS: FINASTERIDE 5 MG TABLET (FP) PO SCH (09:04)
[2017-12-05] MEDS: NIFEdipine E.R 60 MG TABLET (UD) PO SCH (09:04)
[2017-12-05] MEDS: CARVEDILOL 6.25 MG TABLET (FP) PO SCH ×2 (09:04→21:48)
[2017-12-05] MEDS: RILPIVIRINE HCL 25 MG TABLET PO SCH (09:05)
[2017-12-05] MEDS: RALTEGRAVIR POTASSIUM 400 MG TAB PO SCH ×2 (09:06→21:49)
[2017-12-05] MEDS: DARUNAVIR ETHANOLATE 600 MG TAB PO SCH ×2 (09:06→21:49)
[2017-12-05] MEDS: RITONAVIR 100 MG TABLET PO SCH ×2 (09:06→21:48)
[2017-12-05] MEDS: LIDOCAINE HCL 2% JELLY (30 ML/TUBE) TP SCH (09:08)
[2017-12-05] MEDS: CEFTAZIDIME PENTAHYDRATE 1 GM in DEXTROSE 5%-WATER - 50 ML IVPB SCH (09:59)
[2017-12-05 10:35] LABS: HEMATOCRIT 25.5 % (35.4-49); HEMOGLOBIN 8.2 GM/dL (11.7-16.9); LYMPH % 98.1 % (8-40); MCH 28.8 pg (25.7-33.7); MCHC 32.2 g/dl (32.0-35.9); MEAN CELL VOLUME 89.4 fl (80-96); MEAN PLT VOLUME 8.5 fl (7.5-11.1); MONO % 1.1 % (3.8-10.2); NEUT % 0.8 % (42.8-82.8); PLATELET COUNT 85 K/MM3 (134-434); RBC 2.85 M/mm3 (4.00-5.60); WHITE BLOOD COUNT 15.7 K/mm3 (4.0-10.0)
[2017-12-05 11:08] LABS: ANION GAP 13 MMOL/L (8-16); CALCIUM 7.4 mg/dL (8.5-10.1); CHLORIDE 109 mmol/L (98-107); CO2 17 mmol/L (21-32); CREATININE 5.3 mg/dL (0.55-1.3); GLUCOSE,RANDOM 116 mg/dL (74-106); POTASSIUM 4.2 mmol/L (3.5-5.1); SODIUM 138 mmol/L (136-145)
[2017-12-05 11:20] LABS: BLOOD UREA NITROGEN 114 mg/dL (7-18)
[2017-12-05 11:27] LABS: ANISOCYTOSIS 1+; MACROCYTOSIS 1+; OVALOCYTE 1+; PLATELET ESTIMATE DECREASED; TEAR DROP CELLS 1+
[2017-12-05] MEDS ORDERED: VANCOMYCIN 1 GRAM (PRE-DOCKED) 1,000 MG/250 ML BAG IVPB ONE ×2 (12:16→14:00)
--- NOTE | 2017-12-05 12:16 | PN ---
Progress Note, Physician Chief Complaint: C/O penile, scrotal pain Afebrile WBC improved (in setting of CLL) BC one anaerobic bottle GPR ? P. acnes - Current Medication List Current Medications: Active Medications Acetaminophen (Tylenol -) 650 mg PO Q6H PRN PRN Reason: PAIN LEVEL 1-5 Last Admin: 12/04/17 22:19 Dose: 650 mg Allopurinol (Zyloprim -) 100 mg PO DAILY [facility] Last Admin: 12/05/17 09:04 Dose: 100 mg Carvedilol (Coreg -) 6.25 mg PO BID [facility] Last Admin: 12/05/17 09:04 Dose: 6.25 mg Darunavir (Prezista -) 600 mg PO BID [facility] Last Admin: 12/05/17 09:06 Dose: 600 mg Finasteride (Proscar -) 5 mg PO DAILY [facility] Last Admin: 12/05/17 09:04 Dose: 5 mg Furosemide (Lasix Injection -) 40 mg IVPUSH DAILY [facility] Hydralazine HCl (Apresoline -) 25 mg PO BID [facility] Last Admin: 12/05/17 09:04 Dose: 25 mg Ceftazidime 1 gm/ Dextrose 50 mls @ 100 mls/hr IVPB DAILY [facility]; Protocol Last Admin: 12/05/17 09:59 Dose: 100 mls/hr Insulin Aspart (Novolog Vial Sliding Scale -) 1 vial SQ ACHS [facility]; Protocol Last Admin: 12/05/17 11:56 Dose: 4 units Lidocaine HCl (Xylocaine 2% Jelly) 1 applic TP DAILY [facility] Stop: 12/06/17 10:01 Last Admin: 12/05/17 09:08 Dose: 1 applic Melatonin (Melatonin) 5 mg PO HS PRN PRN Reason: INSOMNIA Last Admin: 12/04/17 22:46 Dose: 5 mg Nifedipine (Procardia Xl -) 60 mg PO DAILY [facility] Last Admin: 12/05/17 09:04 Dose: 60 mg Raltegravir (Isentress -) 400 mg PO BID [facility] Last Admin: 12/05/17 09:06 Dose: 400 mg Ritonavir (Norvir -) 100 mg PO BID [facility] Last Admin: 12/05/17 09:06 Dose: 100 mg Sodium Bicarbonate (Sodium Bicarbonate -) 650 mg PO BID [facility] Last Admin: 12/05/17 09:04 Dose: 650 mg Sucralfate (Carafate -) 1 gm PO QID PRN PRN Reason: DYSPEPSIA Last Admin: 12/05/17 03:45 Dose: 1 gm Tamsulosin HCl (Flomax -) 0.4 mg PO BID [facility] Last Admin: 12/05/17 09:04 Dose: 0.4 mg - Objective Vital Signs: Vital Signs Temperature 98.0 F 12/05/17 10:00 Pulse Rate 69 12/05/17 10:00 Respiratory Rate 20 12/05/17 10:00 Blood Pressure 121/53 L 12/05/17 10:00 O2 Sat by Pulse Oximetry (%) 96 12/04/17 20:20 Constitutional: Yes: No Distress Eyes: Yes: Conjunctiva Clear Cardiovascular: Yes: Regular Rate and Rhythm, S1, S2 Respiratory: Yes: CTA Bilaterally Gastrointestinal: Yes: Normal Bowel Sounds, Soft, Distention. No: Tenderness Genitourinary: Yes: Other (+ penile shaft and scrotal edema) Labs: CBC, BMP 12/05/17 08:40 12/05/17 08:40 INR, PTT INR 1.28 (0.83-1.09) H 12/02/17 16:55 Assessment/Plan Penile shaft cellulitis CKD Hx Pseudomonas UTI CLL HIV + BC ? significance Repeat BC Redose vancomycin Continue ceftazidime
--- NOTE | 2017-12-05 12:28 | PN ---
Progress Note, Physician History of Present Illness: Pt seen and examined at bedside. He is awake and appears comfortable. He says that the testicular pain is better than yesterday. He also feels that his edema is starting to improve. - Current Medication List Current Medications: Active Medications Acetaminophen (Tylenol -) 650 mg PO Q6H PRN PRN Reason: PAIN LEVEL 1-5 Last Admin: 12/04/17 22:19 Dose: 650 mg Allopurinol (Zyloprim -) 100 mg PO DAILY [facility] Last Admin: 12/05/17 09:04 Dose: 100 mg Carvedilol (Coreg -) 6.25 mg PO BID [facility] Last Admin: 12/05/17 09:04 Dose: 6.25 mg Darunavir (Prezista -) 600 mg PO BID [facility] Last Admin: 12/05/17 09:06 Dose: 600 mg Finasteride (Proscar -) 5 mg PO DAILY [facility] Last Admin: 12/05/17 09:04 Dose: 5 mg Furosemide (Lasix Injection -) 40 mg IVPUSH DAILY [facility] Hydralazine HCl (Apresoline -) 25 mg PO BID [facility] Last Admin: 12/05/17 09:04 Dose: 25 mg Ceftazidime 1 gm/ Dextrose 50 mls @ 100 mls/hr IVPB DAILY [facility]; Protocol Last Admin: 12/05/17 09:59 Dose: 100 mls/hr Vancomycin HCl (Vancomycin (Pre-Docked)) 1,000 mg in 250 mls @ 166.667 mls/hr IVPB ONCE ONE; Protocol Stop: 12/05/17 13:45 Insulin Aspart (Novolog Vial Sliding Scale -) 1 vial SQ ACHS [facility]; Protocol Last Admin: 12/05/17 11:56 Dose: 4 units Lidocaine HCl (Xylocaine 2% Jelly) 1 applic TP DAILY [facility] Stop: 12/06/17 10:01 Last Admin: 12/05/17 09:08 Dose: 1 applic Melatonin (Melatonin) 5 mg PO HS PRN PRN Reason: INSOMNIA Last Admin: 12/04/17 22:46 Dose: 5 mg Nifedipine (Procardia Xl -) 60 mg PO DAILY [facility] Last Admin: 12/05/17 09:04 Dose: 60 mg Raltegravir (Isentress -) 400 mg PO BID [facility] Last Admin: 12/05/17 09:06 Dose: 400 mg Ritonavir (Norvir -) 100 mg PO BID [facility] Last Admin: 12/05/17 09:06 Dose: 100 mg Sodium Bicarbonate (Sodium Bicarbonate -) 650 mg PO BID [facility] Last Admin: 12/05/17 09:04 Dose: 650 mg Sucralfate (Carafate -) 1 gm PO QID PRN PRN Reason: DYSPEPSIA Last Admin: 12/05/17 03:45 Dose: 1 gm Tamsulosin HCl (Flomax -) 0.4 mg PO BID [facility] Last Admin: 12/05/17 09:04 Dose: 0.4 mg - Objective Vital Signs: Vital Signs Temperature 98.0 F 12/05/17 10:00 Pulse Rate 69 12/05/17 10:00 Respiratory Rate 20 12/05/17 10:00 Blood Pressure 121/53 L 12/05/17 10:00 O2 Sat by Pulse Oximetry (%) 96 12/04/17 20:20 Constitutional: Yes: Calm Eyes: Yes: Conjunctiva Clear HENT: Yes: Atraumatic Cardiovascular: Yes: S1, S2 Respiratory: Yes: CTA Bilaterally Gastrointestinal: Yes: Soft Genitourinary: Yes: Lara Present, Scrotal Edema Edema: Yes Edema: LLE: 1+, RLE: 1+ Neurological: Yes: Oriented Psychiatric: Yes: Oriented Labs: CBC, BMP 12/05/17 08:40 12/05/17 08:40 INR, PTT INR 1.28 (0.83-1.09) H 12/02/17 16:55 Problem List - Problems (1) Renal insufficiency Code(s): N28.9 - DISORDER OF KIDNEY AND URETER, UNSPECIFIED (2) Anemia Code(s): D64.9 - ANEMIA, UNSPECIFIED (3) CKD (chronic kidney disease) Code(s): N18.9 - CHRONIC KIDNEY DISEASE, UNSPECIFIED (4) CLL (chronic lymphocytic leukemia) Code(s): C91.90 - LYMPHOID LEUKEMIA, UNSPECIFIED NOT HAVING ACHIEVED REMISSION (5) HIV (human immunodeficiency virus infection) Code(s): B20 - HUMAN IMMUNODEFICIENCY VIRUS [HIV] DISEASE Assessment/Plan Current Medications Generic Name Dose Route Start Last Admin Trade Name Freq PRN Reason Stop Dose Admin Acetaminophen 650 mg 12/04/17 13:36 12/04/17 22:19 Tylenol - PO 650 mg Q6H PRN Administration PAIN LEVEL 1-5 Allopurinol 100 mg 12/03/17 10:00 12/05/17 09:04 Zyloprim - PO 100 mg DAILY [facility] Administration Carvedilol 6.25 mg 12/03/17 10:00 12/05/17 09:04 Coreg - PO 6.25 mg BID [facility] Administration Darunavir 600 mg 12/03/17 10:00 12/05/17 09:06 Prezista - PO 600 mg BID [facility] Administration Finasteride 5 mg 12/03/17 10:00 12/05/17 09:04 Proscar - PO 5 mg DAILY [facility] Administration Furosemide 40 mg 12/06/17 10:00 Lasix Injection - IVPUSH DAILY [facility] Hydralazine HCl 25 mg 12/03/17 10:00 12/05/17 09:04 Apresoline - PO 25 mg BID [facility] Administration Ceftazidime 1 gm/ Dextrose 50 mls @ 100 mls/hr 12/03/17 14:15 12/05/17 09:59 IVPB 100 mls/hr DAILY [facility] Administration Protocol Vancomycin HCl 1,000 mg in 250 mls @ 166.667 mls/hr 12/05/17 12:16 Vancomycin (Pre-Docked) IVPB 12/05/17 13:45 ONCE ONE Protocol Insulin Aspart 1 vial 12/03/17 07:00 12/05/17 11:56 Novolog Vial Sliding Scale - SQ 4 units ACHS [facility] Administration Protocol Lidocaine HCl 1 applic 12/04/17 13:45 12/05/17 09:08 Xylocaine 2% Jelly TP 12/06/17 10:01 1 applic DAILY [facility] Administration Melatonin 5 mg 12/04/17 22:31 12/04/17 22:46 Melatonin PO 5 mg HS PRN Administration INSOMNIA Nifedipine 60 mg 12/03/17 10:00 12/05/17 09:04 Procardia Xl - PO 60 mg DAILY [facility] Administration Raltegravir 400 mg 12/03/17 10:00 12/05/17 09:06 Isentress - PO 400 mg BID [facility] Administration Ritonavir 100 mg 12/03/17 10:00 12/05/17 09:06 Norvir - PO 100 mg BID [facility] Administration Sodium Bicarbonate 650 mg 12/03/17 10:00 12/05/17 09:04 Sodium Bicarbonate - PO 650 mg BID [facility] Administration Sucralfate 1 gm 10/23/18 18:00 12/05/17 03:45 Carafate - PO 1 gm QID PRN Administration DYSPEPSIA Tamsulosin HCl 0.4 mg 12/03/17 10:00 12/05/17 09:04 Flomax - PO 0.4 mg BID [facility] Administration Impression 1. CKD 2. urinary retention 3. HIV 4. liver cirrhosis 5. Hep C 6. nephrolothiasis 7. DM 8. BPH 9. HTN 10. CLL 11. anemia 12. scrotal cellulitis Plan - renal function is worsening - change lasix to daily - repeat labs in am - abx per ID - cont with po bicarb - check ua - follow cultures - will follow Dr Wells
[2017-12-05 14:19] LABS: URINE APPEARANCE SLCLOUDY; URINE BILIRUBIN NEGATIVE (<2.0 mg/dL); URINE COLOR LTYELLOW; URINE GLUCOSE (UA) NEGATIVE (NEGATIVE); URINE KETONE NEGATIVE (NEGATIVE); URINE LEUK ESTERASE NEGATIVE (NEGATIVE); URINE NITRITE NEGATIVE (NEGATIVE); URINE PROTEIN 2+ (NEGATIVE); URINE UROBILINOGEN NEGATIVE mg/dL (0.2-1.0)
[2017-12-05 14:48] LABS: EPI CELLS RARE /HPF (FEW); URINE MUCUS RARE
--- NOTE | 2017-12-05 15:13 | PN ---
Progress Note, Physician History of Present Illness: patient seen and examined at bedside feels "ok" Hb noted 8.2 after 2 units PRBCs changes of lasix by nephrology noted on vanco and ceftazidime - Current Medication List Current Medications: Active Medications Acetaminophen (Tylenol -) 650 mg PO Q6H PRN PRN Reason: PAIN LEVEL 1-5 Last Admin: 12/04/17 22:19 Dose: 650 mg Allopurinol (Zyloprim -) 100 mg PO DAILY [facility] Last Admin: 12/05/17 09:04 Dose: 100 mg Carvedilol (Coreg -) 6.25 mg PO BID [facility] Last Admin: 12/05/17 09:04 Dose: 6.25 mg Darunavir (Prezista -) 600 mg PO BID [facility] Last Admin: 12/05/17 09:06 Dose: 600 mg Finasteride (Proscar -) 5 mg PO DAILY [facility] Last Admin: 12/05/17 09:04 Dose: 5 mg Furosemide (Lasix Injection -) 40 mg IVPUSH DAILY [facility] Hydralazine HCl (Apresoline -) 25 mg PO BID [facility] Last Admin: 12/05/17 09:04 Dose: 25 mg Ceftazidime 1 gm/ Dextrose 50 mls @ 100 mls/hr IVPB DAILY [facility]; Protocol Last Admin: 12/05/17 09:59 Dose: 100 mls/hr Vancomycin HCl (Vancomycin (Pre-Docked)) 1,000 mg in 250 mls @ 166.667 mls/hr IVPB ONCE ONE; Protocol Stop: 12/05/17 15:29 Last Admin: 12/05/17 14:25 Dose: Not Given Insulin Aspart (Novolog Vial Sliding Scale -) 1 vial SQ ACHS [facility]; Protocol Last Admin: 12/05/17 11:56 Dose: 4 units Lidocaine HCl (Xylocaine 2% Jelly) 1 applic TP DAILY [facility] Stop: 12/06/17 10:01 Last Admin: 12/05/17 09:08 Dose: 1 applic Melatonin (Melatonin) 5 mg PO HS PRN PRN Reason: INSOMNIA Last Admin: 12/04/17 22:46 Dose: 5 mg Nifedipine (Procardia Xl -) 60 mg PO DAILY [facility] Last Admin: 12/05/17 09:04 Dose: 60 mg Raltegravir (Isentress -) 400 mg PO BID [facility] Last Admin: 12/05/17 09:06 Dose: 400 mg Ritonavir (Norvir -) 100 mg PO BID [facility] Last Admin: 12/05/17 09:06 Dose: 100 mg Sodium Bicarbonate (Sodium Bicarbonate -) 650 mg PO BID [facility] Last Admin: 12/05/17 09:04 Dose: 650 mg Sucralfate (Carafate -) 1 gm PO QID PRN PRN Reason: DYSPEPSIA Last Admin: 12/05/17 13:03 Dose: 1 gm Tamsulosin HCl (Flomax -) 0.4 mg PO BID [facility] Last Admin: 12/05/17 09:04 Dose: 0.4 mg - Objective Vital Signs: Vital Signs Temperature 97.3 F L 12/05/17 13:41 Pulse Rate 64 12/05/17 13:41 Respiratory Rate 20 12/05/17 13:41 Blood Pressure 108/58 L 12/05/17 13:41 O2 Sat by Pulse Oximetry (%) 97 12/05/17 09:00 Labs: CBC, BMP 12/05/17 08:40 12/05/17 08:40 INR, PTT INR 1.28 (0.83-1.09) H 12/02/17 16:55 Assessment/Plan 67M with extensive PMH presented to the hospital with multiple complaints including scrotal swelling and penil discharge associated with weakness shortness of breath and cough. Patient was febirle upon presentation. 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 Patient also is anemic and thrombocytopenic and going to cystoscopy. 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 Wells Patient not on OR schedule Spoke to hospitlaist RAHEEM haney who will call the urologist to get a time so we can coordinate the platelet transfusions
[2017-12-05] MEDS ORDERED: FUROSEMIDE 40 MG/4 ML INJECTABLE VIAL IVPUSH ONE (15:57)
--- NOTE | 2017-12-05 16:42 | PN ---
Teaching Attending Note Name of Resident: Jovani Ramirez ATTENDING PHYSICIAN STATEMENT I saw and evaluated the patient. I reviewed the resident's note and discussed the case with the resident. I agree with the resident's findings and plan as documented. SUBJECTIVE Patient seen and examined Cysto being deferred PE with adenopathy , organomegaly, ascites scrotal /penile edema ortiz CBC, BMP 12/05/17 08:40 12/05/17 08:40 Impression: CLL HIV Scrotal cellulitis Anemia Thrombocytopenia ascites Ortiz Plan: to follow and treat as is necessary prn blood products OBJECTIVE: ASSESSMENT AND PLAN:
[2017-12-05] MEDS: ACETAMINOPHEN 325 MG TABLET (FP) PO PRN (17:58)
--- NOTE | 2017-12-05 21:08 | PN ---
Physical Exam: SUBJECTIVE: Patient seen and examined OBJECTIVE: Vital Signs Period Temp Pulse Resp BP Sys/Ventura Pulse Ox Last 24 Hr 97.3 F-98.3 F 64-72 18-20 108-136/53-74 97 GENERAL: The patient is awake, alert, and fully oriented, in no acute distress. Pale, weak, ill-appearing. Bilateral hand tremors, +asterixis LUNGS: Breath sounds equal, clear to auscultation bilaterally, no wheezes, no crackles, no accessory muscle use. HEART: Regular rate and rhythm, S1, S2 ABDOMEN: Markedly distended, not tender, no guarding, no rebound : Ortiz in place draining clear yello urine; no pus around meatus; penis and scrotum are significantly swollen and tender LOWER EXTREMITIES: LLE 3+ pitting edema; RLE 2+ edema; no calf tenderness NEUROLOGICAL: Cranial nerves II through XII grossly intact. Normal speech, gait not observed Laboratory Results - last 24 hr 12/02/17 12/03/17 12/04/17 21:22 05:14 21:26 WBC RBC Hgb Hct MCV MCH MCHC RDW Plt Count MPV Absolute Neuts (auto) Neutrophils % Neutrophils % (Manual) Band Neutrophils % Lymphocytes % Lymphocytes % (Manual) Monocytes % Monocytes % (Manual) Eosinophils % Eosinophils % (Manual) Basophils % Basophils % (Manual) Myelocytes % (Man) Promyelocytes % (Man) Blast Cells % (Manual) Nucleated RBC % Metamyelocytes Hypochromia Platelet Estimate Polychromasia Poikilocytosis Anisocytosis Microcytosis Macrocytosis Tear Drop Cells Ovalocytes Schistocytes Sodium Potassium Chloride Carbon Dioxide Anion Gap BUN Creatinine Creat Clearance w eGFR POC Glucometer 180 Random Glucose Calcium Urine Color Urine Appearance Urine pH Ur Specific [place] Urine Protein Urine Glucose (UA) Urine Ketones Urine Blood Urine Nitrite Urine Bilirubin Urine Urobilinogen Ur Leukocyte Esterase Urine WBC (Auto) Urine RBC (Auto) Ur Epithelial Cells Urine Mucus HIV-1 Antibody Positive H HIV-2 Antibody Negative HIV 1&2 Ag/Ab, 4th Gen Reactive H HIV Note Hiv-1 positive Crossmatch See Detail 12/05/17 12/05/17 12/05/17 05:38 08:40 08:40 WBC 15.7 H RBC 2.85 L Hgb 8.2 L Hct 25.5 L MCV 89.4 MCH 28.8 MCHC 32.2 RDW 17.0 H Plt Count 85 L MPV 8.5 Absolute Neuts (auto) 0.1 L Neutrophils % 0.8 L Neutrophils % (Manual) 2.2 L Band Neutrophils % 0.0 Lymphocytes % 98.1 H Lymphocytes % (Manual) 94.5 H* Monocytes % 1.1 L Monocytes % (Manual) 2 L Eosinophils % 0.0 D Eosinophils % (Manual) 0.0 Basophils % 0.0 Basophils % (Manual) 0.0 Myelocytes % (Man) 0 Promyelocytes % (Man) 0 Blast Cells % (Manual) 0 Nucleated RBC % 0 Metamyelocytes 0 Hypochromia 0 Platelet Estimate Decreased Polychromasia 1+ Poikilocytosis 0 Anisocytosis 1+ Microcytosis 1+ Macrocytosis 1+ Tear Drop Cells 1+ Ovalocytes 1+ Schistocytes 1+ Sodium 138 Potassium 4.2 Chloride 109 H Carbon Dioxide 17 L Anion Gap 13 BUN 114 H* Creatinine 5.3 H Creat Clearance w eGFR 10.94 POC Glucometer 130 Random Glucose 116 H Calcium 7.4 L Urine Color Urine Appearance Urine pH Ur Specific [place] Urine Protein Urine Glucose (UA) Urine Ketones Urine Blood Urine Nitrite Urine Bilirubin Urine Urobilinogen Ur Leukocyte Esterase Urine WBC (Auto) Urine RBC (Auto) Ur Epithelial Cells Urine Mucus HIV-1 Antibody HIV-2 Antibody HIV 1&2 Ag/Ab, 4th Gen HIV Note Crossmatch 12/05/17 12/05/17 12/05/17 11:15 13:00 16:21 WBC RBC Hgb Hct MCV MCH MCHC RDW Plt Count MPV Absolute Neuts (auto) Neutrophils % Neutrophils % (Manual) Band Neutrophils % Lymphocytes % Lymphocytes % (Manual) Monocytes % Monocytes % (Manual) Eosinophils % Eosinophils % (Manual) Basophils % Basophils % (Manual) Myelocytes % (Man) Promyelocytes % (Man) Blast Cells % (Manual) Nucleated RBC % Metamyelocytes Hypochromia Platelet Estimate Polychromasia Poikilocytosis Anisocytosis Microcytosis Macrocytosis Tear Drop Cells Ovalocytes Schistocytes Sodium Potassium Chloride Carbon Dioxide Anion Gap BUN Creatinine Creat Clearance w eGFR POC Glucometer 230 159 Random Glucose Calcium Urine Color Ltyellow Urine Appearance Slcloudy Urine pH 5.0 Ur Specific [place] 1.011 Urine Protein 2+ H Urine Glucose (UA) Negative Urine Ketones Negative Urine Blood Negative Urine Nitrite Negative Urine Bilirubin Negative Urine Urobilinogen Negative Ur Leukocyte Esterase Negative Urine WBC (Auto) 6 Urine RBC (Auto) 2 Ur Epithelial Cells Rare Urine Mucus Rare HIV-1 Antibody HIV-2 Antibody HIV 1&2 Ag/Ab, 4th Gen HIV Note Crossmatch Active Medications Generic Name Dose Route Start Last Admin Trade Name Freq PRN Reason Stop Dose Admin Acetaminophen 650 mg 12/04/17 13:36 12/05/17 17:58 Tylenol - PO 650 mg Q6H PRN Administration PAIN LEVEL 1-5 Allopurinol 100 mg 12/03/17 10:00 12/05/17 09:04 Zyloprim - PO 100 mg DAILY [facility] Administration Carvedilol 6.25 mg 12/03/17 10:00 12/05/17 09:04 Coreg - PO 6.25 mg BID [facility] Administration Darunavir 600 mg 12/03/17 10:00 12/05/17 09:06 Prezista - PO 600 mg BID [facility] Administration Finasteride 5 mg 12/03/17 10:00 12/05/17 09:04 Proscar - PO 5 mg DAILY [facility] Administration Furosemide 40 mg 12/06/17 10:00 Lasix Injection - IVPUSH DAILY [facility] Hydralazine HCl 25 mg 12/03/17 10:00 12/05/17 09:04 Apresoline - PO 25 mg BID [facility] Administration Ceftazidime 1 gm/ Dextrose 50 mls @ 100 mls/hr 12/03/17 14:15 12/05/17 09:59 IVPB 100 mls/hr DAILY [facility] Administration Protocol Insulin Aspart 1 vial 12/03/17 07:00 12/05/17 17:58 Novolog Vial Sliding Scale - SQ 2 units ACHS [facility] Administration Protocol Lidocaine HCl 1 applic 12/04/17 13:45 12/05/17 09:08 Xylocaine 2% Jelly TP 12/06/17 10:01 1 applic DAILY [facility] Administration Melatonin 5 mg 12/04/17 22:31 12/04/17 22:46 Melatonin PO 5 mg HS PRN Administration INSOMNIA Nifedipine 60 mg 12/03/17 10:00 12/05/17 09:04 Procardia Xl - PO 60 mg DAILY [facility] Administration Raltegravir 400 mg 12/03/17 10:00 12/05/17 09:06 Isentress - PO 400 mg BID [facility] Administration Ritonavir 100 mg 12/03/17 10:00 12/05/17 09:06 Norvir - PO 100 mg BID [facility] Administration Sodium Bicarbonate 650 mg 12/03/17 10:00 12/05/17 09:04 Sodium Bicarbonate - PO 650 mg BID [facility] Administration Sucralfate 1 gm 12/04/17 18:00 12/05/17 13:03 Carafate - PO 1 gm QID PRN Administration DYSPEPSIA Tamsulosin HCl 0.4 mg 12/03/17 10:00 12/05/17 09:04 Flomax - PO 0.4 mg BID [facility] Administration ASSESSMENT/PLAN: 67 year-old male with a PMH significant for HTN, CAD, Type II DM, HIV/AIDS, Hep C, cirrhosis, CKD, chronic anemia, CLL, BPH, urinary retention with ortiz x 3 months. Admitted for UTI. Pseudomonas UTI --10/30/17 urine culture grew pseudomonas --empiric cetazedime (day #3) Penile shaft cellulitis --antibiotics as above --C&G ordered BPH Urinary retention --ortiz was placed 3 months ago for retention, changed 2 months ago and not since; in ED pus around meatus; ortiz dc'd and new one inserted --12/02 CTAP: mild right hydronephrosis and hydroureter without evidence of obstruction --continue tamsulosin --cystoscopy cancelled; discussed with Dr. Loomis, decision made to defer elective invasive procedure CKD --significant volume overload on exam persists --renal function continues to worsen BUN/Cr 114/5.3 --uremic symptoms more pronounced, significant tremors, asterixis --seen and evaluated by renal; will again discuss appropriateness of HD CLL --followed at [facility], last treatment 04/2017 Chronic anemia --transfused 2 U PRBC with modest response, 7.2-->8.2 --h/h stable --no transfusions for now since cystoscopy cancelled Hypertension Coronary artery disease --continue carvedilol, nifedipine, hydralazine Type II DM --Novolog sliding scale coverage Gout --continue allopurinol HIV/AIDS --continue retrovirals Hepatitis C --s/p Harvoni --LFTs stable FEN Fluids: PO intake adequate Electrolytes: replete as indicated Nutrition: diabetic low sodium DVT prophylaxis: d/c'd heparin due to low platelets; SCDs, TEDs, oob, ambulation Dispo: continues to require inpatient care. Visit type - Emergency Visit Emergency Visit: Yes ED Registration Date: 12/02/17 Care time: The patient presented to the Emergency Department on the above date and was hospitalized for further evaluation of their emergent condition. - New Patient This patient is new to me today: No - Critical Care Critical Care patient: Yes Total Critical Care Time (in minutes): 45 Critical Care Statement: The care of this patient involved high complexity decision making to prevent further life threatening deterioration of the patient 's condition and/or to evaluate & treat vital organ system(s) failure or risk of failure.
[2017-12-05] MEDS: MELATONIN 5 MG TABLETS PO PRN (21:48)
[2017-12-05] MEDS ORDERED: ACETAMINOPHEN 1000 MG/100 ML VIAL (NON FORMULARY) IVPB PRN (22:48)
[2017-12-06] MEDS: SUCRALFATE 1 GM TABLET (FP) PO PRN ×3 (04:26→22:29)
[2017-12-06] MEDS: INSULIN SLIDING SCALE (NOVOLOG) 1 VIAL SQ SCH ×4 (06:03→22:39)
[2017-12-06 06:07] LABS: HEMATOCRIT 25.7 % (35.4-49); HEMOGLOBIN 8.2 GM/dL (11.7-16.9); LYMPH % 98.3 % (8-40); MCH 28.5 pg (25.7-33.7); MCHC 31.9 g/dl (32.0-35.9); MEAN CELL VOLUME 89.3 fl (80-96); MEAN PLT VOLUME 8.5 fl (7.5-11.1); MONO % 0.2 % (3.8-10.2); NEUT % 1.5 % (42.8-82.8); PLATELET COUNT 81 K/MM3 (134-434); RBC 2.88 M/mm3 (4.00-5.60); RDW 17.2 % (11.9-15.9); WHITE BLOOD COUNT 16.5 K/mm3 (4.0-10.0)
[2017-12-06 06:51] LABS: ALBUMIN 2.9 g/dl (3.4-5.0); ALK PHOS 74 U/L (45-117); ANION GAP 12 MMOL/L (8-16); BILIRUBIN,TOTAL 0.4 mg/dL (0.2-1); CALCIUM 7.1 mg/dL (8.5-10.1); CHLORIDE 111 mmol/L (98-107); CO2 18 mmol/L (21-32); CREATININE 5.5 mg/dL (0.55-1.3); GLUCOSE,RANDOM 120 mg/dL (74-106); MAGNESIUM 2.6 mg/dL (1.8-2.4); PHOSPHOROUS 5.9 mg/dL (2.5-4.9); POTASSIUM 4.3 mmol/L (3.5-5.1); SGOT/AST 9 U/L (15-37); SGPT/ALT 15 U/L (13-61); SODIUM 141 mmol/L (136-145); TOT PROT 5.6 g/dl (6.4-8.2)
[2017-12-06 07:04] LABS: BLOOD UREA NITROGEN 122 mg/dL (7-18)
[2017-12-06] MEDS ORDERED: PT OWN MED DRAWER 7, Y5N ONE ×2 (09:16→21:26)
[2017-12-06] MEDS: CARVEDILOL 6.25 MG TABLET (FP) PO SCH ×2 (09:53→22:27)
[2017-12-06] MEDS: NIFEdipine E.R 60 MG TABLET (UD) PO SCH (09:53)
[2017-12-06] MEDS: ALLOPURINOL 100 MG TABLET (FP) PO SCH (09:53)
[2017-12-06] MEDS: TAMSULOSIN HCL 0.4 MG CAP PO SCH ×2 (09:53→22:27)
[2017-12-06] MEDS: hydrALAZINE HCL 25 MG TABLET (FP) PO SCH ×2 (09:53→22:26)
[2017-12-06] MEDS: SODIUM BICARBONATE 650 MG TABLET PO SCH ×2 (09:53→22:27)
[2017-12-06] MEDS: FINASTERIDE 5 MG TABLET (FP) PO SCH (09:53)
[2017-12-06] MEDS: FUROSEMIDE 40 MG/4 ML INJECTABLE VIAL IVPUSH SCH (09:53)
[2017-12-06] MEDS: CEFTAZIDIME PENTAHYDRATE 1 GM in DEXTROSE 5%-WATER - 50 ML IVPB SCH (09:54)
[2017-12-06] MEDS: RILPIVIRINE HCL 25 MG TABLET PO SCH (09:56)
[2017-12-06] MEDS: RALTEGRAVIR POTASSIUM 400 MG TAB PO SCH ×2 (09:56→22:28)
[2017-12-06] MEDS: DARUNAVIR ETHANOLATE 600 MG TAB PO SCH ×2 (09:57→22:27)
[2017-12-06] MEDS: RITONAVIR 100 MG TABLET PO SCH ×2 (09:57→22:29)
[2017-12-06] MEDS: LIDOCAINE HCL 2% JELLY (30 ML/TUBE) TP SCH (10:00)
[2017-12-06 10:34] LABS: ANISOCYTOSIS 1+; MACROCYTOSIS 0; PLATELET ESTIMATE DECREASED; TEAR DROP CELLS 1+
--- NOTE | 2017-12-06 11:06 | PN ---
Physical Exam: SUBJECTIVE: Patient seen and examined at bedside. Scrotal swelling little better but still very painful. OBJECTIVE: Vital Signs Period Temp Pulse Resp BP Sys/Ventura Pulse Ox Last 24 Hr 97.3 F-98 F 64-73 18-20 108-136/52-58 98 GENERAL: The patient is awake, alert, and fully oriented, in no acute distress. Pale, weak, ill-appearing. Bilateral hand tremors, +asterixis LUNGS: Breath sounds equal, clear to auscultation bilaterally, no wheezes, no crackles, no accessory muscle use. HEART: Regular rate and rhythm, S1, S2 ABDOMEN: Markedly distended, not tender, no guarding, no rebound : Ortiz in place draining clear yello urine; no pus around meatus; penis and scrotum are significantly swollen and tender LOWER EXTREMITIES: LLE 3+ pitting edema; RLE 2+ edema; no calf tenderness NEUROLOGICAL: Cranial nerves II through XII grossly intact. Normal speech, gait not observed Laboratory Results - last 24 hr 12/02/17 12/03/17 12/05/17 21:22 05:14 08:40 WBC RBC Hgb Hct MCV MCH MCHC RDW Plt Count MPV Absolute Neuts (auto) Neutrophils % Neutrophils % (Manual) Band Neutrophils % Lymphocytes % Lymphocytes % (Manual) Monocytes % Monocytes % (Manual) Eosinophils % Eosinophils % (Manual) Basophils % Basophils % (Manual) Myelocytes % (Man) Promyelocytes % (Man) Blast Cells % (Manual) Nucleated RBC % Metamyelocytes Hypochromia Platelet Estimate Polychromasia Poikilocytosis Anisocytosis Microcytosis Macrocytosis Tear Drop Cells Ovalocytes Schistocytes Sodium 138 Potassium 4.2 Chloride 109 H Carbon Dioxide 17 L Anion Gap 13 BUN 114 H* Creatinine 5.3 H Creat Clearance w eGFR 10.94 POC Glucometer Random Glucose 116 H Calcium 7.4 L Phosphorus Magnesium Total Bilirubin AST ALT Alkaline Phosphatase Total Protein Albumin Urine Color Urine Appearance Urine pH Ur Specific [place] Urine Protein Urine Glucose (UA) Urine Ketones Urine Blood Urine Nitrite Urine Bilirubin Urine Urobilinogen Ur Leukocyte Esterase Urine WBC (Auto) Urine RBC (Auto) Ur Epithelial Cells Urine Mucus HIV-1 Antibody Positive H Crossmatch See Detail 12/05/17 12/05/17 12/05/17 08:40 11:15 13:00 WBC RBC Hgb Hct MCV MCH MCHC RDW Plt Count MPV Absolute Neuts (auto) Neutrophils % Neutrophils % (Manual) 2.2 L Band Neutrophils % 0.0 Lymphocytes % Lymphocytes % (Manual) 94.5 H* Monocytes % Monocytes % (Manual) 2 L Eosinophils % Eosinophils % (Manual) 0.0 Basophils % Basophils % (Manual) 0.0 Myelocytes % (Man) 0 Promyelocytes % (Man) 0 Blast Cells % (Manual) 0 Nucleated RBC % Metamyelocytes 0 Hypochromia 0 Platelet Estimate Decreased Polychromasia 1+ Poikilocytosis 0 Anisocytosis 1+ Microcytosis 1+ Macrocytosis 1+ Tear Drop Cells 1+ Ovalocytes 1+ Schistocytes 1+ Sodium Potassium Chloride Carbon Dioxide Anion Gap BUN Creatinine Creat Clearance w eGFR POC Glucometer 230 Random Glucose Calcium Phosphorus Magnesium Total Bilirubin AST ALT Alkaline Phosphatase Total Protein Albumin Urine Color Ltyellow Urine Appearance Slcloudy Urine pH 5.0 Ur Specific [place] 1.011 Urine Protein 2+ H Urine Glucose (UA) Negative Urine Ketones Negative Urine Blood Negative Urine Nitrite Negative Urine Bilirubin Negative Urine Urobilinogen Negative Ur Leukocyte Esterase Negative Urine WBC (Auto) 6 Urine RBC (Auto) 2 Ur Epithelial Cells Rare Urine Mucus Rare HIV-1 Antibody Crossmatch 12/05/17 12/05/17 12/06/17 16:21 22:39 05:30 WBC 16.5 H RBC 2.88 L Hgb 8.2 L Hct 25.7 L MCV 89.3 MCH 28.5 MCHC 31.9 L RDW 17.2 H Plt Count 81 L MPV 8.5 Absolute Neuts (auto) 0.3 L Neutrophils % 1.5 L Neutrophils % (Manual) Band Neutrophils % Lymphocytes % 98.3 H Lymphocytes % (Manual) Monocytes % 0.2 L D Monocytes % (Manual) Eosinophils % 0.0 Eosinophils % (Manual) Basophils % 0.0 Basophils % (Manual) Myelocytes % (Man) Promyelocytes % (Man) Blast Cells % (Manual) Nucleated RBC % 0 Metamyelocytes Hypochromia Platelet Estimate Polychromasia Poikilocytosis Anisocytosis Microcytosis Macrocytosis Tear Drop Cells Ovalocytes Schistocytes Sodium Potassium Chloride Carbon Dioxide Anion Gap BUN Creatinine Creat Clearance w eGFR POC Glucometer 159 185 Random Glucose Calcium Phosphorus Magnesium Total Bilirubin AST ALT Alkaline Phosphatase Total Protein Albumin Urine Color Urine Appearance Urine pH Ur Specific [place] Urine Protein Urine Glucose (UA) Urine Ketones Urine Blood Urine Nitrite Urine Bilirubin Urine Urobilinogen Ur Leukocyte Esterase Urine WBC (Auto) Urine RBC (Auto) Ur Epithelial Cells Urine Mucus HIV-1 Antibody Crossmatch 12/06/17 12/06/17 05:30 06:03 WBC RBC Hgb Hct MCV MCH MCHC RDW Plt Count MPV Absolute Neuts (auto) Neutrophils % Neutrophils % (Manual) Band Neutrophils % Lymphocytes % Lymphocytes % (Manual) Monocytes % Monocytes % (Manual) Eosinophils % Eosinophils % (Manual) Basophils % Basophils % (Manual) Myelocytes % (Man) Promyelocytes % (Man) Blast Cells % (Manual) Nucleated RBC % Metamyelocytes Hypochromia Platelet Estimate Polychromasia Poikilocytosis Anisocytosis Microcytosis Macrocytosis Tear Drop Cells Ovalocytes Schistocytes Sodium 141 Potassium 4.3 Chloride 111 H Carbon Dioxide 18 L Anion Gap 12 BUN 122 H* Creatinine 5.5 H Creat Clearance w eGFR 10.49 POC Glucometer 133 Random Glucose 120 H Calcium 7.1 L Phosphorus 5.9 H Magnesium 2.6 H Total Bilirubin 0.4 AST 9 L ALT 15 Alkaline Phosphatase 74 Total Protein 5.6 L Albumin 2.9 L Urine Color Urine Appearance Urine pH Ur Specific [place] Urine Protein Urine Glucose (UA) Urine Ketones Urine Blood Urine Nitrite Urine Bilirubin Urine Urobilinogen Ur Leukocyte Esterase Urine WBC (Auto) Urine RBC (Auto) Ur Epithelial Cells Urine Mucus HIV-1 Antibody Crossmatch Active Medications Generic Name Dose Route Start Last Admin Trade Name Freq PRN Reason Stop Dose Admin Acetaminophen 650 mg 12/04/17 13:36 12/05/17 17:58 Tylenol - PO 650 mg Q6H PRN Administration PAIN LEVEL 1-5 Acetaminophen 1,000 mg 12/05/17 22:48 Ofirmev Injection - IVPB Q6H PRN PAIN LEVEL 6-10 Allopurinol 100 mg 12/03/17 10:00 12/06/17 09:53 Zyloprim - PO 100 mg DAILY [facility] Administration Carvedilol 6.25 mg 12/03/17 10:00 12/06/17 09:53 Coreg - PO 6.25 mg BID [facility] Administration Darunavir 600 mg 12/03/17 10:00 12/06/17 09:57 Prezista - PO 600 mg BID [facility] Administration Finasteride 5 mg 12/03/17 10:00 12/06/17 09:53 Proscar - PO 5 mg DAILY [facility] Administration Furosemide 40 mg 12/06/17 10:00 12/06/17 09:53 Lasix Injection - IVPUSH 40 mg DAILY [facility] Administration Hydralazine HCl 25 mg 12/03/17 10:00 12/06/17 09:53 Apresoline - PO 25 mg BID [facility] Administration Ceftazidime 1 gm/ Dextrose 50 mls @ 100 mls/hr 12/03/17 14:15 12/06/17 09:54 IVPB 100 mls/hr DAILY [facility] Administration Protocol Insulin Aspart 1 vial 12/03/17 07:00 12/06/17 06:03 Novolog Vial Sliding Scale - SQ Not Given ACHS [facility] Protocol Melatonin 5 mg 12/04/17 22:31 12/05/17 21:48 Melatonin PO 5 mg HS PRN Administration INSOMNIA Nifedipine 60 mg 12/03/17 10:00 12/06/17 09:53 Procardia Xl - PO 60 mg DAILY [facility] Administration Raltegravir 400 mg 12/03/17 10:00 12/06/17 09:56 Isentress - PO 400 mg BID [facility] Administration Ritonavir 100 mg 12/03/17 10:00 12/06/17 09:57 Norvir - PO 100 mg BID [facility] Administration Sodium Bicarbonate 650 mg 12/03/17 10:00 12/06/17 09:53 Sodium Bicarbonate - PO 650 mg BID [facility] Administration Sucralfate 1 gm 12/04/17 18:00 12/06/17 09:59 Carafate - PO 1 gm QID PRN Administration DYSPEPSIA Tamsulosin HCl 0.4 mg 12/03/17 10:00 12/06/17 09:53 Flomax - PO 0.4 mg BID [facility] Administration ASSESSMENT/PLAN: 67 year-old male with a PMH significant for HTN, CAD, Type II DM, HIV/AIDS, Hep C, cirrhosis, CKD, chronic anemia, CLL, BPH, urinary retention with ortiz x 3 months. Admitted for UTI. Pseudomonas UTI --10/30/17 urine culture grew pseudomonas --empiric cetazedime (day #4) Penile shaft cellulitis --antibiotics as above --C&G ordered BPH Urinary retention --ortiz was placed 3 months ago for retention, changed 2 months ago and not since; in ED pus around meatus; ortiz dc'd and new one inserted --12/02 CTAP: mild right hydronephrosis and hydroureter without evidence of obstruction --continue tamsulosin --cystoscopy cancelled, decision made to defer elective invasive procedure until more stable CKD --significant volume overload on exam --renal function steadily worsening BUN/Cr 122/5.5 --uremic symptoms more pronounced, significant tremors, asterixis --discussed starting HD at length with patient last evening and again today; he is ready to begin; discussed with Dr. Wells who will see patient later today CLL --followed at [facility], last treatment 04/2017 Chronic anemia --transfused 2 U PRBC with modest response, 7.2-->8.2 --h/h stable --no transfusions for now since cystoscopy cancelled Hypertension Coronary artery disease --continue carvedilol, nifedipine, hydralazine Type II DM --Novolog sliding scale coverage Gout --continue allopurinol HIV/AIDS --continue retrovirals Hepatitis C --s/p Harvoni --LFTs stable FEN Fluids: PO intake adequate Electrolytes: replete as indicated Nutrition: diabetic low sodium DVT prophylaxis: d/c'd heparin due to low platelets; SCDs, TEDs, oob, ambulation Dispo: continues to require inpatient care. Visit type - Emergency Visit Emergency Visit: Yes ED Registration Date: 12/02/17 Care time: The patient presented to the Emergency Department on the above date and was hospitalized for further evaluation of their emergent condition. - New Patient This patient is new to me today: No - Critical Care Critical Care patient: Yes Total Critical Care Time (in minutes): 45 Critical Care Statement: The care of this patient involved high complexity decision making to prevent further life threatening deterioration of the patient 's condition and/or to evaluate & treat vital organ system(s) failure or risk of failure.
--- NOTE | 2017-12-06 15:08 | PN ---
Progress Note, Physician Chief Complaint: No c/o penile, scrotal pain Afebrile WBC improved (in setting of CLL) BC one anaerobic bottle GPR ? P. acnes Repeat BC pending - Current Medication List Current Medications: Active Medications Acetaminophen (Tylenol -) 650 mg PO Q6H PRN PRN Reason: PAIN LEVEL 1-5 Last Admin: 12/05/17 17:58 Dose: 650 mg Acetaminophen (Ofirmev Injection -) 1,000 mg IVPB Q6H PRN PRN Reason: PAIN LEVEL 6-10 Last Admin: 12/06/17 12:53 Dose: 1,000 mg Allopurinol (Zyloprim -) 100 mg PO DAILY [facility] Last Admin: 12/06/17 09:53 Dose: 100 mg Carvedilol (Coreg -) 6.25 mg PO BID [facility] Last Admin: 12/06/17 09:53 Dose: 6.25 mg Darunavir (Prezista -) 600 mg PO BID [facility] Last Admin: 12/06/17 09:57 Dose: 600 mg Finasteride (Proscar -) 5 mg PO DAILY [facility] Last Admin: 12/06/17 09:53 Dose: 5 mg Furosemide (Lasix Injection -) 40 mg IVPUSH DAILY [facility] Last Admin: 12/06/17 09:53 Dose: 40 mg Hydralazine HCl (Apresoline -) 25 mg PO BID [facility] Last Admin: 12/06/17 09:53 Dose: 25 mg Ceftazidime 1 gm/ Dextrose 50 mls @ 100 mls/hr IVPB DAILY [facility]; Protocol Last Admin: 12/06/17 09:54 Dose: 100 mls/hr Insulin Aspart (Novolog Vial Sliding Scale -) 1 vial SQ ACHS [facility]; Protocol Last Admin: 12/06/17 12:17 Dose: Not Given Melatonin (Melatonin) 5 mg PO HS PRN PRN Reason: INSOMNIA Last Admin: 12/05/17 21:48 Dose: 5 mg Mupirocin (Bactroban 2% Ointment -) 1 applic TP TID [facility] Nifedipine (Procardia Xl -) 60 mg PO DAILY [facility] Last Admin: 12/06/17 09:53 Dose: 60 mg Raltegravir (Isentress -) 400 mg PO BID [facility] Last Admin: 12/06/17 09:56 Dose: 400 mg Ritonavir (Norvir -) 100 mg PO BID [facility] Last Admin: 12/06/17 09:57 Dose: 100 mg Sodium Bicarbonate (Sodium Bicarbonate -) 650 mg PO BID [facility] Last Admin: 12/06/17 09:53 Dose: 650 mg Sucralfate (Carafate -) 1 gm PO QID PRN PRN Reason: DYSPEPSIA Last Admin: 12/06/17 09:59 Dose: 1 gm Tamsulosin HCl (Flomax -) 0.4 mg PO BID [facility] Last Admin: 12/06/17 09:53 Dose: 0.4 mg - Objective Vital Signs: Vital Signs Temperature 97.6 F 12/06/17 14:10 Pulse Rate 64 12/06/17 14:10 Respiratory Rate 20 12/06/17 14:10 Blood Pressure 109/55 L 12/06/17 14:10 O2 Sat by Pulse Oximetry (%) 94 L 12/06/17 09:00 Constitutional: Yes: No Distress Eyes: Yes: Conjunctiva Clear Cardiovascular: Yes: Regular Rate and Rhythm, S1, S2 Respiratory: Yes: CTA Bilaterally Gastrointestinal: Yes: Normal Bowel Sounds, Soft. No: Tenderness Genitourinary: Yes: Other (decreased penile swelling, less penile/ scrotal tenderness) Edema: Yes Labs: CBC, BMP 12/06/17 05:30 12/06/17 05:30 INR, PTT INR 1.28 (0.83-1.09) H 12/02/17 16:55 Assessment/Plan Penile shaft cellulitis - improved CKD Hx Pseudomonas UTI CLL HIV + BC ? significance Repeat BC pending vancomycin redosed Continue ceftazidime
--- NOTE | 2017-12-06 15:58 | PN ---
Progress Note, Physician History of Present Illness: Pt seen and examined at bedside.He is awake and alert. He denies shortness of breath. He complains of testicular and penile discomfort. - Current Medication List Current Medications: Active Medications Acetaminophen (Tylenol -) 650 mg PO Q6H PRN PRN Reason: PAIN LEVEL 1-5 Last Admin: 12/05/17 17:58 Dose: 650 mg Acetaminophen (Ofirmev Injection -) 1,000 mg IVPB Q6H PRN PRN Reason: PAIN LEVEL 6-10 Last Admin: 12/06/17 12:53 Dose: 1,000 mg Allopurinol (Zyloprim -) 100 mg PO DAILY [facility] Last Admin: 12/06/17 09:53 Dose: 100 mg Carvedilol (Coreg -) 6.25 mg PO BID [facility] Last Admin: 12/06/17 09:53 Dose: 6.25 mg Darunavir (Prezista -) 600 mg PO BID [facility] Last Admin: 12/06/17 09:57 Dose: 600 mg Finasteride (Proscar -) 5 mg PO DAILY [facility] Last Admin: 12/06/17 09:53 Dose: 5 mg Furosemide (Lasix Injection -) 40 mg IVPUSH DAILY [facility] Last Admin: 12/06/17 09:53 Dose: 40 mg Hydralazine HCl (Apresoline -) 25 mg PO BID [facility] Last Admin: 12/06/17 09:53 Dose: 25 mg Ceftazidime 1 gm/ Dextrose 50 mls @ 100 mls/hr IVPB DAILY [facility]; Protocol Last Admin: 12/06/17 09:54 Dose: 100 mls/hr Insulin Aspart (Novolog Vial Sliding Scale -) 1 vial SQ ACHS [facility]; Protocol Last Admin: 12/06/17 12:17 Dose: Not Given Melatonin (Melatonin) 5 mg PO HS PRN PRN Reason: INSOMNIA Last Admin: 12/05/17 21:48 Dose: 5 mg Mupirocin (Bactroban 2% Ointment -) 1 applic TP TID [facility] Nifedipine (Procardia Xl -) 60 mg PO DAILY [facility] Last Admin: 12/06/17 09:53 Dose: 60 mg Raltegravir (Isentress -) 400 mg PO BID [facility] Last Admin: 12/06/17 09:56 Dose: 400 mg Ritonavir (Norvir -) 100 mg PO BID [facility] Last Admin: 12/06/17 09:57 Dose: 100 mg Sodium Bicarbonate (Sodium Bicarbonate -) 650 mg PO BID [facility] Last Admin: 12/06/17 09:53 Dose: 650 mg Sucralfate (Carafate -) 1 gm PO QID PRN PRN Reason: DYSPEPSIA Last Admin: 12/06/17 09:59 Dose: 1 gm Tamsulosin HCl (Flomax -) 0.4 mg PO BID [facility] Last Admin: 12/06/17 09:53 Dose: 0.4 mg - Objective Vital Signs: Vital Signs Temperature 97.6 F 12/06/17 14:10 Pulse Rate 64 12/06/17 14:10 Respiratory Rate 20 12/06/17 14:10 Blood Pressure 109/55 L 12/06/17 14:10 O2 Sat by Pulse Oximetry (%) 94 L 12/06/17 09:00 Constitutional: Yes: Calm Eyes: Yes: Conjunctiva Clear HENT: Yes: Atraumatic Cardiovascular: Yes: S1, S2 Respiratory: Yes: CTA Bilaterally Gastrointestinal: Yes: Soft Genitourinary: Yes: Lara Present Musculoskeletal: Yes: WNL Edema: Yes Edema: LLE: 1+, RLE: 1+ Neurological: Yes: Oriented Psychiatric: Yes: Oriented Labs: CBC, BMP 12/06/17 05:30 12/06/17 05:30 INR, PTT INR 1.28 (0.83-1.09) H 12/02/17 16:55 - ....Imaging Chest X-ray: Report Reviewed Problem List - Problems (1) Renal insufficiency Code(s): N28.9 - DISORDER OF KIDNEY AND URETER, UNSPECIFIED (2) Anemia Code(s): D64.9 - ANEMIA, UNSPECIFIED (3) CKD (chronic kidney disease) Code(s): N18.9 - CHRONIC KIDNEY DISEASE, UNSPECIFIED (4) CLL (chronic lymphocytic leukemia) Code(s): C91.90 - LYMPHOID LEUKEMIA, UNSPECIFIED NOT HAVING ACHIEVED REMISSION (5) HIV (human immunodeficiency virus infection) Code(s): B20 - HUMAN IMMUNODEFICIENCY VIRUS [HIV] DISEASE Assessment/Plan Current Medications Generic Name Dose Route Start Last Admin Trade Name Freq PRN Reason Stop Dose Admin Acetaminophen 650 mg 12/04/17 13:36 12/05/17 17:58 Tylenol - PO 650 mg Q6H PRN Administration PAIN LEVEL 1-5 Acetaminophen 1,000 mg 12/05/17 22:48 12/06/17 12:53 Ofirmev Injection - IVPB 1,000 mg Q6H PRN Administration PAIN LEVEL 6-10 Allopurinol 100 mg 12/03/17 10:00 12/06/17 09:53 Zyloprim - PO 100 mg DAILY [facility] Administration Carvedilol 6.25 mg 12/03/17 10:00 12/06/17 09:53 Coreg - PO 6.25 mg BID [facility] Administration Darunavir 600 mg 12/03/17 10:00 12/06/17 09:57 Prezista - PO 600 mg BID [facility] Administration Finasteride 5 mg 12/03/17 10:00 12/06/17 09:53 Proscar - PO 5 mg DAILY [facility] Administration Furosemide 40 mg 12/06/17 10:00 12/06/17 09:53 Lasix Injection - IVPUSH 40 mg DAILY [facility] Administration Hydralazine HCl 25 mg 12/03/17 10:00 12/06/17 09:53 Apresoline - PO 25 mg BID [facility] Administration Ceftazidime 1 gm/ Dextrose 50 mls @ 100 mls/hr 12/03/17 14:15 12/06/17 09:54 IVPB 100 mls/hr DAILY [facility] Administration Protocol Insulin Aspart 1 vial 12/03/17 07:00 12/06/17 12:17 Novolog Vial Sliding Scale - SQ Not Given ACHS [facility] Protocol Melatonin 5 mg 12/04/17 22:31 12/05/17 21:48 Melatonin PO 5 mg HS PRN Administration INSOMNIA Mupirocin 1 applic 12/06/17 15:00 Bactroban 2% Ointment - TP TID [facility] Nifedipine 60 mg 12/03/17 10:00 12/06/17 09:53 Procardia Xl - PO 60 mg DAILY [facility] Administration Raltegravir 400 mg 12/03/17 10:00 12/06/17 09:56 Isentress - PO 400 mg BID [facility] Administration Ritonavir 100 mg 12/03/17 10:00 12/06/17 09:57 Norvir - PO 100 mg BID [facility] Administration Sodium Bicarbonate 650 mg 12/03/17 10:00 12/06/17 09:53 Sodium Bicarbonate - PO 650 mg BID [facility] Administration Sucralfate 1 gm 12/04/17 18:00 12/06/17 09:59 Carafate - PO 1 gm QID PRN Administration DYSPEPSIA Tamsulosin HCl 0.4 mg 12/03/17 10:00 12/06/17 09:53 Flomax - PO 0.4 mg BID [facility] Administration Impression 1. CKD 2. urinary retention 3. HIV 4. liver cirrhosis 5. Hep C 6. nephrolothiasis 7. DM 8. BPH 9. HTN 10. CLL 11. anemia 12. scrotal cellulitis Plan - cont to monitor renal function - lasix daily - cxr neg for edema or congetion - pt is making urine - pt has RICHY, will continue to monitor - will not dialyze today, will follow pt - stop carafate - monitor urine output - will give a dose of procrit - start iron supplements - follow cultures - will follow Dr Wells
[2017-12-06] MEDS ORDERED: EPOETIN ALFA 10,000 UNIT/1 ML VIAL SQ ONE (16:15)
[2017-12-06] MEDS: MUPIROCIN 2% TOPICAL OINTMENT 22 GM TUBE TP SCH ×2 (17:13→22:29)
[2017-12-06] MEDS: FERROUS SO4 325 MG TABLET (FP) PO SCH (17:14)
[2017-12-06 22:16] LABS: URINE APPEARANCE SLCLOUDY; URINE BILIRUBIN NEGATIVE (<2.0 mg/dL); URINE COLOR LTYELLOW; URINE GLUCOSE (UA) NEGATIVE (NEGATIVE); URINE KETONE NEGATIVE (NEGATIVE); URINE LEUK ESTERASE NEGATIVE (NEGATIVE); URINE NITRITE NEGATIVE (NEGATIVE); URINE PROTEIN 2+ (NEGATIVE); URINE UROBILINOGEN NEGATIVE mg/dL (0.2-1.0)
[2017-12-06 22:20] LABS: URINE BACTERIA RARE /hpf (NONE SEEN); URINE MUCUS RARE; YEAST RARE
[2017-12-06] MEDS: MELATONIN 5 MG TABLETS PO PRN (22:26)
[2017-12-07] MEDS ORDERED: PT OWN MED DRAWER 7, Y5N ONE ×3 (05:52→10:59)
[2017-12-07] MEDS: MUPIROCIN 2% TOPICAL OINTMENT 22 GM TUBE TP SCH ×3 (06:50→21:04)
[2017-12-07] MEDS ORDERED: INSULIN (NOVOLOG) ASPART 100 UNITS/ML 10ML VIAL ONE ×2 (06:56→20:43)
[2017-12-07 07:19] LABS: EOS % 0.1 % (0-4.5); HEMATOCRIT 25.4 % (35.4-49); LYMPH % 98.2 % (8-40); MCH 28.6 pg (25.7-33.7); MCHC 31.7 g/dl (32.0-35.9); MEAN CELL VOLUME 90.2 fl (80-96); MEAN PLT VOLUME 8.7 fl (7.5-11.1); MONO % 0.7 % (3.8-10.2); PLATELET COUNT 85 K/MM3 (134-434); RBC 2.81 M/mm3 (4.00-5.60); RDW 17.7 % (11.9-15.9); WHITE BLOOD COUNT 24.7 K/mm3 (4.0-10.0)
[2017-12-07] MEDS: INSULIN SLIDING SCALE (NOVOLOG) 1 VIAL SQ SCH ×4 (07:45→21:07)
[2017-12-07 08:01] LABS: ALBUMIN 2.9 g/dl (3.4-5.0); ALK PHOS 73 U/L (45-117); ANION GAP 15 MMOL/L (8-16); BILIRUBIN,TOTAL 0.3 mg/dL (0.2-1); CALCIUM 7.4 mg/dL (8.5-10.1); CHLORIDE 111 mmol/L (98-107); CO2 18 mmol/L (21-32); CREATININE 5.1 mg/dL (0.55-1.3); GLUCOSE,RANDOM 96 mg/dL (74-106); MAGNESIUM 2.7 mg/dL (1.8-2.4); POTASSIUM 4.3 mmol/L (3.5-5.1); SGOT/AST 8 U/L (15-37); SGPT/ALT 15 U/L (13-61); SODIUM 143 mmol/L (136-145); TOT PROT 5.4 g/dl (6.4-8.2)
[2017-12-07 08:12] LABS: BLOOD UREA NITROGEN 117 mg/dL (7-18)
[2017-12-07] MEDS: hydrALAZINE HCL 25 MG TABLET (FP) PO SCH ×2 (10:30→21:05)
[2017-12-07] MEDS: FERROUS SO4 325 MG TABLET (FP) PO SCH ×3 (10:30→17:46)
[2017-12-07] MEDS: CARVEDILOL 6.25 MG TABLET (FP) PO SCH ×2 (10:30→21:06)
[2017-12-07] MEDS: SODIUM BICARBONATE 650 MG TABLET PO SCH ×2 (10:30→21:05)
[2017-12-07] MEDS: FUROSEMIDE 40 MG/4 ML INJECTABLE VIAL IVPUSH SCH (10:30)
[2017-12-07] MEDS: TAMSULOSIN HCL 0.4 MG CAP PO SCH ×2 (10:30→21:05)
[2017-12-07] MEDS: ALLOPURINOL 100 MG TABLET (FP) PO SCH (10:30)
[2017-12-07] MEDS: FINASTERIDE 5 MG TABLET (FP) PO SCH (10:30)
[2017-12-07] MEDS: CEFTAZIDIME PENTAHYDRATE 1 GM in DEXTROSE 5%-WATER - 50 ML IVPB SCH (10:31)
[2017-12-07] MEDS: RILPIVIRINE HCL 25 MG TABLET PO SCH (11:00)
[2017-12-07] MEDS: RALTEGRAVIR POTASSIUM 400 MG TAB PO SCH ×2 (11:01→21:06)
[2017-12-07] MEDS: DARUNAVIR ETHANOLATE 600 MG TAB PO SCH ×2 (11:02→21:06)
[2017-12-07] MEDS: RITONAVIR 100 MG TABLET PO SCH ×2 (11:02→21:05)
[2017-12-07] MEDS: NIFEdipine E.R 60 MG TABLET (UD) PO SCH (12:02)
--- NOTE | 2017-12-07 12:14 | PN ---
Progress Note, Physician History of Present Illness: Pt seen and examined at bedside. He is awake and alert. He denies shortness of breath. - Current Medication List Current Medications: Active Medications Acetaminophen (Tylenol -) 650 mg PO Q6H PRN PRN Reason: PAIN LEVEL 1-5 Last Admin: 12/05/17 17:58 Dose: 650 mg Acetaminophen (Ofirmev Injection -) 1,000 mg IVPB Q6H PRN PRN Reason: PAIN LEVEL 6-10 Last Admin: 12/06/17 12:53 Dose: 1,000 mg Allopurinol (Zyloprim -) 100 mg PO DAILY [facility] Last Admin: 12/07/17 10:30 Dose: 100 mg Carvedilol (Coreg -) 6.25 mg PO BID [facility] Last Admin: 12/07/17 10:30 Dose: 6.25 mg Darunavir (Prezista -) 600 mg PO BID [facility] Last Admin: 12/07/17 11:02 Dose: 600 mg Ferrous Sulfate (Feosol -) 325 mg PO TIDCM [facility] Last Admin: 12/07/17 12:02 Dose: 325 mg Finasteride (Proscar -) 5 mg PO DAILY [facility] Last Admin: 12/07/17 10:30 Dose: 5 mg Furosemide (Lasix Injection -) 40 mg IVPUSH DAILY [facility] Last Admin: 12/07/17 10:30 Dose: 40 mg Hydralazine HCl (Apresoline -) 25 mg PO BID [facility] Last Admin: 12/07/17 10:30 Dose: 25 mg Ceftazidime 1 gm/ Dextrose 50 mls @ 100 mls/hr IVPB DAILY [facility]; Protocol Last Admin: 12/07/17 10:31 Dose: 100 mls/hr Insulin Aspart (Novolog Vial Sliding Scale -) 1 vial SQ ACHS [facility]; Protocol Last Admin: 12/07/17 07:45 Dose: Not Given Melatonin (Melatonin) 15 mg PO HS PRN PRN Reason: INSOMNIA Last Admin: 12/06/17 22:26 Dose: 15 mg Mupirocin (Bactroban 2% Ointment -) 1 applic TP TID [facility] Last Admin: 12/07/17 06:50 Dose: 1 applic Nifedipine (Procardia Xl -) 60 mg PO DAILY [facility] Last Admin: 12/07/17 12:02 Dose: 60 mg Raltegravir (Isentress -) 400 mg PO BID [facility] Last Admin: 12/07/17 11:01 Dose: 400 mg Ritonavir (Norvir -) 100 mg PO BID [facility] Last Admin: 12/07/17 11:02 Dose: 100 mg Sodium Bicarbonate (Sodium Bicarbonate -) 650 mg PO BID [facility] Last Admin: 12/07/17 10:30 Dose: 650 mg Tamsulosin HCl (Flomax -) 0.4 mg PO BID [facility] Last Admin: 12/07/17 10:30 Dose: 0.4 mg - Objective Vital Signs: Vital Signs Temperature 98.4 F 12/07/17 10:00 Pulse Rate 70 12/07/17 10:00 Respiratory Rate 18 12/07/17 10:00 Blood Pressure 135/55 L 12/07/17 10:00 O2 Sat by Pulse Oximetry (%) 94 L 12/07/17 09:00 Constitutional: Yes: Calm Eyes: Yes: Conjunctiva Clear HENT: Yes: Atraumatic Neck: Yes: Supple Cardiovascular: Yes: S1, S2 Respiratory: Yes: CTA Bilaterally Gastrointestinal: Yes: Soft Genitourinary: Yes: Lara Present Musculoskeletal: Yes: WNL Edema: LLE: 2+, RLE: 2+ Neurological: Yes: Oriented Psychiatric: Yes: Oriented Labs: CBC, BMP 12/07/17 06:00 12/07/17 06:00 INR, PTT INR 1.28 (0.83-1.09) H 12/02/17 16:55 Problem List - Problems (1) Renal insufficiency Code(s): N28.9 - DISORDER OF KIDNEY AND URETER, UNSPECIFIED (2) Anemia Code(s): D64.9 - ANEMIA, UNSPECIFIED (3) CKD (chronic kidney disease) Code(s): N18.9 - CHRONIC KIDNEY DISEASE, UNSPECIFIED (4) CLL (chronic lymphocytic leukemia) Code(s): C91.90 - LYMPHOID LEUKEMIA, UNSPECIFIED NOT HAVING ACHIEVED REMISSION (5) HIV (human immunodeficiency virus infection) Code(s): B20 - HUMAN IMMUNODEFICIENCY VIRUS [HIV] DISEASE Assessment/Plan Current Medications Generic Name Dose Route Start Last Admin Trade Name Freq PRN Reason Stop Dose Admin Acetaminophen 650 mg 12/04/17 13:36 12/05/17 17:58 Tylenol - PO 650 mg Q6H PRN Administration PAIN LEVEL 1-5 Acetaminophen 1,000 mg 12/05/17 22:48 12/06/17 12:53 Ofirmev Injection - IVPB 1,000 mg Q6H PRN Administration PAIN LEVEL 6-10 Allopurinol 100 mg 12/03/17 10:00 12/07/17 10:30 Zyloprim - PO 100 mg DAILY [facility] Administration Carvedilol 6.25 mg 12/03/17 10:00 12/07/17 10:30 Coreg - PO 6.25 mg BID [facility] Administration Darunavir 600 mg 12/03/17 10:00 12/07/17 11:02 Prezista - PO 600 mg BID [facility] Administration Ferrous Sulfate 325 mg 12/06/17 17:30 12/07/17 12:02 Feosol - PO 325 mg TIDCM [facility] Administration Finasteride 5 mg 12/03/17 10:00 12/07/17 10:30 Proscar - PO 5 mg DAILY [facility] Administration Furosemide 40 mg 12/06/17 10:00 12/07/17 10:30 Lasix Injection - IVPUSH 40 mg DAILY [facility] Administration Hydralazine HCl 25 mg 12/03/17 10:00 12/07/17 10:30 Apresoline - PO 25 mg BID [facility] Administration Ceftazidime 1 gm/ Dextrose 50 mls @ 100 mls/hr 12/03/17 14:15 12/07/17 10:31 IVPB 100 mls/hr DAILY [facility] Administration Protocol Insulin Aspart 1 vial 12/03/17 07:00 12/07/17 07:45 Novolog Vial Sliding Scale - SQ Not Given ACHS [facility] Protocol Melatonin 15 mg 12/06/17 22:00 12/06/17 22:26 Melatonin PO 15 mg HS PRN Administration INSOMNIA Mupirocin 1 applic 12/06/17 15:00 12/07/17 06:50 Bactroban 2% Ointment - TP 1 applic TID [facility] Administration Nifedipine 60 mg 12/03/17 10:00 12/07/17 12:02 Procardia Xl - PO 60 mg DAILY [facility] Administration Raltegravir 400 mg 12/03/17 10:00 12/07/17 11:01 Isentress - PO 400 mg BID [facility] Administration Ritonavir 100 mg 12/03/17 10:00 12/07/17 11:02 Norvir - PO 100 mg BID [facility] Administration Sodium Bicarbonate 650 mg 12/03/17 10:00 12/07/17 10:30 Sodium Bicarbonate - PO 650 mg BID [facility] Administration Tamsulosin HCl 0.4 mg 12/03/17 10:00 12/07/17 10:30 Flomax - PO 0.4 mg BID [facility] Administration Impression 1. CKD 2. urinary retention 3. HIV 4. liver cirrhosis 5. Hep C 6. nephrolothiasis 7. DM 8. BPH 9. HTN 10. CLL 11. anemia 12. scrotal cellulitis Plan - renal function is improving - repeat labs in am - will give an extra dose of lasix - monitor urine output - monitor hg - vascular evaluate for AV fistula - discussed preparation for HD with pt at length - cont iron supplements Dr Wells
[2017-12-07] MEDS: ACETAMINOPHEN 325 MG TABLET (FP) PO PRN (15:25)
[2017-12-07] MEDS ORDERED: FUROSEMIDE 40 MG/4 ML INJECTABLE VIAL IVPUSH ONE (16:00)
--- NOTE | 2017-12-07 16:09 | PN ---
Progress Note (short form) - Note Progress Note: VAscular surgery Pt seen and examined. Pt needs permanent HD access for future HD Pt is right handed Please save left arm for left avf. No bp, blood draws left arm. Will order vein mapping for avf placement Mamadou Rodríguez DO
[2017-12-07] MEDS: CLOTRIMAZOLE/BETAMET DIPROP 15 GM TUBE TP SCH ×2 (16:45→21:04)
[2017-12-07] MEDS: CALCIUM CARBONATE 650 MG TABLET PO SCH (16:45)
--- NOTE | 2017-12-07 17:34 | PN ---
Physical Exam: SUBJECTIVE: Patient seen and examined OBJECTIVE: Vital Signs Period Temp Pulse Resp BP Sys/[place] Pulse Ox Last 24 Hr 97.5 F-98.4 F 63-78 18-22 118-135/42-64 94-94 GENERAL: The patient is awake, alert, and fully oriented, in no acute distress. Tremors improved. LUNGS: Breath sounds equal, clear to auscultation bilaterally, no wheezes, no crackles, no accessory muscle use. HEART: Regular rate and rhythm, S1, S2 ABDOMEN: Markedly distended, not tender, no guarding, no rebound : Ortiz in place draining clear yellow urine; no pus around meatus; penis and scrotum are significantly swollen and tender LOWER EXTREMITIES: LLE 3+ pitting edema; RLE 2+ edema; no calf tenderness; TEDs NEUROLOGICAL: Cranial nerves II through XII grossly intact. Normal speech, gait not observed Laboratory Results - last 24 hr 12/02/17 12/06/17 12/06/17 21:22 21:15 21:15 WBC RBC Hgb Hct MCV MCH MCHC RDW Plt Count MPV Absolute Neuts (auto) Neutrophils % Lymphocytes % Monocytes % Eosinophils % Basophils % Nucleated RBC % Sodium Potassium Chloride Carbon Dioxide Anion Gap BUN Creatinine Creat Clearance w eGFR POC Glucometer Random Glucose Calcium Magnesium Ferritin Total Bilirubin AST ALT Alkaline Phosphatase Total Protein Albumin Urine Color Urine Appearance Urine pH Ur Specific [place] Urine Protein Urine Glucose (UA) Urine Ketones Urine Blood Urine Nitrite Urine Bilirubin Urine Urobilinogen Ur Leukocyte Esterase Urine WBC (Auto) Urine RBC (Auto) Urine Bacteria Urine Mucus Urine Yeast Ur Random Sodium < 18 L Ur Random Potassium 21.0 L Ur Random Chloride < 11 L Urine Creatinine 137.0 H Blood Type B NEGATIVE Antibody Screen Negative Crossmatch See Detail 12/06/17 12/07/17 12/07/17 21:15 06:00 06:00 WBC 24.7 H RBC 2.81 L Hgb 8.0 L Hct 25.4 L MCV 90.2 MCH 28.6 MCHC 31.7 L RDW 17.7 H Plt Count 85 L MPV 8.7 Absolute Neuts (auto) 0.2 L Neutrophils % 1.0 L Lymphocytes % 98.2 H Monocytes % 0.7 L D Eosinophils % 0.1 D Basophils % 0.0 Nucleated RBC % 0 Sodium 143 Potassium 4.3 Chloride 111 H Carbon Dioxide 18 L Anion Gap 15 BUN 117 H* Creatinine 5.1 H Creat Clearance w eGFR 11.44 POC Glucometer Random Glucose 96 Calcium 7.4 L Magnesium 2.7 H Ferritin 417.1 H Total Bilirubin 0.3 AST 8 L ALT 15 Alkaline Phosphatase 73 Total Protein 5.4 L Albumin 2.9 L Urine Color Ltyellow Urine Appearance Slcloudy Urine pH 5.0 Ur Specific [place] 1.012 Urine Protein 2+ H Urine Glucose (UA) Negative Urine Ketones Negative Urine Blood Negative Urine Nitrite Negative Urine Bilirubin Negative Urine Urobilinogen Negative Ur Leukocyte Esterase Negative Urine WBC (Auto) 3 Urine RBC (Auto) None Urine Bacteria Rare Urine Mucus Rare Urine Yeast Rare Ur Random Sodium Ur Random Potassium Ur Random Chloride Urine Creatinine Blood Type Antibody Screen Crossmatch Active Medications Generic Name Dose Route Start Last Admin Trade Name Freq PRN Reason Stop Dose Admin Acetaminophen 650 mg 12/04/17 13:36 12/07/17 15:25 Tylenol - PO 650 mg Q6H PRN Administration PAIN LEVEL 1-5 Acetaminophen 1,000 mg 12/05/17 22:48 12/06/17 12:53 Ofirmev Injection - IVPB 1,000 mg Q6H PRN Administration PAIN LEVEL 6-10 Allopurinol 100 mg 12/03/17 10:00 12/07/17 10:30 Zyloprim - PO 100 mg DAILY [facility] Administration Calcium Carbonate 650 mg 12/07/17 16:00 12/07/17 16:45 Calcium Carbonate - PO 650 mg DAILY [facility] Administration Carvedilol 6.25 mg 12/03/17 10:00 12/07/17 10:30 Coreg - PO 6.25 mg BID [facility] Administration Clotrimazole 1 applic 12/07/17 13:30 12/07/17 16:45 Lotrisone Cream (Small Tube) TP 1 applic BID [facility] Administration Darunavir 600 mg 12/03/17 10:00 12/07/17 11:02 Prezista - PO 600 mg BID [facility] Administration Ferrous Sulfate 325 mg 12/06/17 17:30 12/07/17 12:02 Feosol - PO 325 mg TIDCM [facility] Administration Finasteride 5 mg 12/03/17 10:00 12/07/17 10:30 Proscar - PO 5 mg DAILY [facility] Administration Furosemide 40 mg 12/06/17 10:00 12/07/17 10:30 Lasix Injection - IVPUSH 40 mg DAILY [facility] Administration Hydralazine HCl 25 mg 12/03/17 10:00 12/07/17 10:30 Apresoline - PO 25 mg BID [facility] Administration Ceftazidime 1 gm/ Dextrose 50 mls @ 100 mls/hr 12/03/17 14:15 12/07/17 10:31 IVPB 100 mls/hr DAILY [facility] Administration Protocol Insulin Aspart 1 vial 12/03/17 07:00 12/07/17 12:21 Novolog Vial Sliding Scale - SQ Not Given ACHS [facility] Protocol Melatonin 15 mg 12/06/17 22:00 12/06/17 22:26 Melatonin PO 15 mg HS PRN Administration INSOMNIA Mupirocin 1 applic 12/06/17 15:00 12/07/17 15:18 Bactroban 2% Ointment - TP 1 applic TID [facility] Administration Nifedipine 60 mg 12/03/17 10:00 12/07/17 12:02 Procardia Xl - PO 60 mg DAILY [facility] Administration Raltegravir 400 mg 12/03/17 10:00 12/07/17 11:01 Isentress - PO 400 mg BID [facility] Administration Ritonavir 100 mg 12/03/17 10:00 12/07/17 11:02 Norvir - PO 100 mg BID [facility] Administration Sodium Bicarbonate 650 mg 12/03/17 10:00 12/07/17 10:30 Sodium Bicarbonate - PO 650 mg BID [facility] Administration Tamsulosin HCl 0.4 mg 12/03/17 10:00 12/07/17 10:30 Flomax - PO 0.4 mg BID [facility] Administration ASSESSMENT/PLAN: 67 year-old male with a PMH significant for HTN, CAD, Type II DM, HIV/AIDS, Hep C, cirrhosis, CKD, chronic anemia, CLL, BPH, urinary retention with ortiz x 3 months. Admitted for UTI. Pseudomonas UTI Penile shaft cellulitis --10/30/17 urine culture grew pseudomonas --empiric cetazedime (day #5) --C&G pending BPH Urinary retention --ortiz was placed 3 months ago for retention, changed 2 months ago and not since; in ED pus around meatus; ortiz dc'd and new one inserted --12/02 CTAP: mild right hydronephrosis and hydroureter without evidence of obstruction --continue tamsulosin --cystoscopy cancelled, decision made to defer elective invasive procedure until more stable CKD --significant volume overload on exam --Cr 5.5 (peak)-->5.1 --patient ready to start HD when necessary CLL --followed at [facility], last treatment 04/2017 Chronic anemia --last transfused 12/03 --h/h stable Hypertension Coronary artery disease --continue carvedilol, nifedipine, hydralazine Type II DM --Novolog sliding scale coverage Gout --continue allopurinol HIV/AIDS --continue retrovirals Hepatitis C --s/p Harvoni --LFTs stable FEN Fluids: PO intake adequate Electrolytes: replete as indicated Nutrition: diabetic low sodium DVT prophylaxis: d/c'd heparin due to low platelets; SCDs, TEDs, oob, ambulation Dispo: continues to require inpatient care. Visit type - Emergency Visit Emergency Visit: Yes ED Registration Date: 12/02/17 Care time: The patient presented to the Emergency Department on the above date and was hospitalized for further evaluation of their emergent condition. - New Patient This patient is new to me today: No - Critical Care Critical Care patient: No
[2017-12-07 19:31] LABS: ANISOCYTOSIS 1+; PLATELET ESTIMATE DECREASED
[2017-12-07] MEDS: SUCRALFATE 1 GM/10 ML UNIT DOSE CUPS PO SCH (21:05)
[2017-12-08] MEDS: MELATONIN 5 MG TABLETS PO PRN ×2 (01:03→21:26)
[2017-12-08] MEDS: MUPIROCIN 2% TOPICAL OINTMENT 22 GM TUBE TP SCH ×3 (06:19→21:23)
[2017-12-08] MEDS: INSULIN SLIDING SCALE (NOVOLOG) 1 VIAL SQ SCH ×4 (06:22→21:26)
[2017-12-08 08:29] LABS: ANION GAP 13 MMOL/L (8-16); CALCIUM 7.6 mg/dL (8.5-10.1); CHLORIDE 113 mmol/L (98-107); CO2 18 mmol/L (21-32); CREATININE 4.8 mg/dL (0.55-1.3); GLUCOSE,RANDOM 90 mg/dL (74-106); POTASSIUM 4.3 mmol/L (3.5-5.1); SODIUM 144 mmol/L (136-145)
[2017-12-08 08:46] LABS: BLOOD UREA NITROGEN 109 mg/dL (7-18)
[2017-12-08] MEDS ORDERED: PT OWN MED DRAWER 7, Y5N ONE (09:17)
[2017-12-08] MEDS: CARVEDILOL 6.25 MG TABLET (FP) PO SCH ×2 (09:21→21:23)
[2017-12-08] MEDS: hydrALAZINE HCL 25 MG TABLET (FP) PO SCH ×2 (09:21→21:23)
[2017-12-08] MEDS: FINASTERIDE 5 MG TABLET (FP) PO SCH (09:21)
[2017-12-08] MEDS: NIFEdipine E.R 60 MG TABLET (UD) PO SCH (09:21)
[2017-12-08] MEDS: SUCRALFATE 1 GM/10 ML UNIT DOSE CUPS PO SCH ×4 (09:21→21:24)
[2017-12-08] MEDS: TAMSULOSIN HCL 0.4 MG CAP PO SCH ×2 (09:21→21:23)
[2017-12-08] MEDS: FERROUS SO4 325 MG TABLET (FP) PO SCH ×3 (09:21→17:03)
[2017-12-08] MEDS: FUROSEMIDE 40 MG/4 ML INJECTABLE VIAL IVPUSH SCH (09:21)
[2017-12-08] MEDS: RALTEGRAVIR POTASSIUM 400 MG TAB PO SCH ×2 (09:21→21:24)
[2017-12-08] MEDS: ALLOPURINOL 100 MG TABLET (FP) PO SCH (09:21)
[2017-12-08] MEDS: SODIUM BICARBONATE 650 MG TABLET PO SCH ×2 (09:21→21:26)
[2017-12-08] MEDS: CEFTAZIDIME PENTAHYDRATE 1 GM in DEXTROSE 5%-WATER - 50 ML IVPB SCH (09:21)
[2017-12-08] MEDS: CALCIUM CARBONATE 650 MG TABLET PO SCH (09:22)
[2017-12-08] MEDS: DARUNAVIR ETHANOLATE 600 MG TAB PO SCH ×2 (09:22→21:25)
[2017-12-08] MEDS: RITONAVIR 100 MG TABLET PO SCH ×2 (09:22→22:11)
[2017-12-08] MEDS: RILPIVIRINE HCL 25 MG TABLET PO SCH (09:22)
[2017-12-08] MEDS: CLOTRIMAZOLE/BETAMET DIPROP 15 GM TUBE TP SCH ×2 (09:23→21:25)
[2017-12-08 16:12] LABS: H.PYLORI AB IGM <9.0 units (0.0-8.9)
[2017-12-08] MEDS: ACETAMINOPHEN 325 MG TABLET (FP) PO PRN (16:25)
--- NOTE | 2017-12-08 18:54 | PN ---
Progress Note, Physician History of Present Illness: Pt seen and examined at bedside. He is awake and alert. He denies shortness of breath. - Current Medication List Current Medications: Active Medications Acetaminophen (Tylenol -) 650 mg PO Q6H PRN PRN Reason: PAIN LEVEL 1-5 Last Admin: 12/08/17 16:25 Dose: 650 mg Acetaminophen (Ofirmev Injection -) 1,000 mg IVPB Q6H PRN PRN Reason: PAIN LEVEL 6-10 Last Admin: 12/06/17 12:53 Dose: 1,000 mg Allopurinol (Zyloprim -) 100 mg PO DAILY [facility] Last Admin: 12/08/17 09:21 Dose: 100 mg Calcium Carbonate (Calcium Carbonate -) 650 mg PO DAILY [facility] Last Admin: 12/08/17 09:22 Dose: 650 mg Carvedilol (Coreg -) 6.25 mg PO BID [facility] Last Admin: 12/08/17 09:21 Dose: 6.25 mg Clotrimazole (Lotrisone Cream (Small Tube)) 1 applic TP BID [facility] Last Admin: 12/08/17 09:23 Dose: 1 applic Darunavir (Prezista -) 600 mg PO BID [facility] Last Admin: 12/08/17 09:22 Dose: 600 mg Ferrous Sulfate (Feosol -) 325 mg PO TIDCM [facility] Last Admin: 12/08/17 17:03 Dose: 325 mg Finasteride (Proscar -) 5 mg PO DAILY [facility] Last Admin: 12/08/17 09:21 Dose: 5 mg Furosemide (Lasix Injection -) 40 mg IVPUSH DAILY [facility] Last Admin: 12/08/17 09:21 Dose: 40 mg Hydralazine HCl (Apresoline -) 25 mg PO BID [facility] Last Admin: 12/08/17 09:21 Dose: 25 mg Ceftazidime 1 gm/ Dextrose 50 mls @ 100 mls/hr IVPB DAILY [facility]; Protocol Last Admin: 12/08/17 09:21 Dose: 100 mls/hr Insulin Aspart (Novolog Vial Sliding Scale -) 1 vial SQ ACHS [facility]; Protocol Last Admin: 12/08/17 16:31 Dose: Not Given Melatonin (Melatonin) 15 mg PO HS PRN PRN Reason: INSOMNIA Last Admin: 12/08/17 01:03 Dose: 15 mg Mupirocin (Bactroban 2% Ointment -) 1 applic TP TID [facility] Last Admin: 12/08/17 15:16 Dose: 1 applic Nifedipine (Procardia Xl -) 60 mg PO DAILY [facility] Last Admin: 12/08/17 09:21 Dose: 60 mg Raltegravir (Isentress -) 400 mg PO BID [facility] Last Admin: 12/08/17 09:21 Dose: 400 mg Ritonavir (Norvir -) 100 mg PO BID [facility] Last Admin: 12/08/17 09:22 Dose: 100 mg Sodium Bicarbonate (Sodium Bicarbonate -) 650 mg PO BID [facility] Last Admin: 12/08/17 09:21 Dose: 650 mg Sucralfate (Carafate Oral Suspension -) 1 gm PO QID [facility] Last Admin: 12/08/17 17:03 Dose: 1 gm Tamsulosin HCl (Flomax -) 0.4 mg PO BID [facility] Last Admin: 12/08/17 09:21 Dose: 0.4 mg - Objective Vital Signs: Vital Signs Temperature 98.7 F 12/08/17 18:00 Pulse Rate 66 12/08/17 18:00 Respiratory Rate 18 12/08/17 18:00 Blood Pressure 130/52 L 12/08/17 18:00 O2 Sat by Pulse Oximetry (%) 96 12/08/17 09:00 Constitutional: Yes: Calm Eyes: Yes: Conjunctiva Clear HENT: Yes: Atraumatic Cardiovascular: Yes: S1, S2 Respiratory: Yes: CTA Bilaterally, On Nasal O2 Gastrointestinal: Yes: Soft Genitourinary: Yes: Lara Present Musculoskeletal: Yes: WNL Edema: Yes Edema: LLE: 2+, RLE: 2+ Neurological: Yes: Oriented Psychiatric: Yes: Oriented Labs: CBC, BMP 12/07/17 06:00 12/08/17 06:30 INR, PTT INR 1.28 (0.83-1.09) H 12/02/17 16:55 Problem List - Problems (1) Renal insufficiency Code(s): N28.9 - DISORDER OF KIDNEY AND URETER, UNSPECIFIED (2) Anemia Code(s): D64.9 - ANEMIA, UNSPECIFIED (3) CKD (chronic kidney disease) Code(s): N18.9 - CHRONIC KIDNEY DISEASE, UNSPECIFIED (4) CLL (chronic lymphocytic leukemia) Code(s): C91.90 - LYMPHOID LEUKEMIA, UNSPECIFIED NOT HAVING ACHIEVED REMISSION (5) HIV (human immunodeficiency virus infection) Code(s): B20 - HUMAN IMMUNODEFICIENCY VIRUS [HIV] DISEASE Assessment/Plan Current Medications Generic Name Dose Route Start Last Admin Trade Name Freq PRN Reason Stop Dose Admin Acetaminophen 650 mg 12/04/17 13:36 12/08/17 16:25 Tylenol - PO 650 mg Q6H PRN Administration PAIN LEVEL 1-5 Acetaminophen 1,000 mg 12/05/17 22:48 12/06/17 12:53 Ofirmev Injection - IVPB 1,000 mg Q6H PRN Administration PAIN LEVEL 6-10 Allopurinol 100 mg 12/03/17 10:00 12/08/17 09:21 Zyloprim - PO 100 mg DAILY [facility] Administration Calcium Carbonate 650 mg 12/07/17 16:00 12/08/17 09:22 Calcium Carbonate - PO 650 mg DAILY [facility] Administration Carvedilol 6.25 mg 12/03/17 10:00 12/08/17 09:21 Coreg - PO 6.25 mg BID [facility] Administration Clotrimazole 1 applic 12/07/17 13:30 12/08/17 09:23 Lotrisone Cream (Small Tube) TP 1 applic BID [facility] Administration Darunavir 600 mg 12/03/17 10:00 12/08/17 09:22 Prezista - PO 600 mg BID [facility] Administration Ferrous Sulfate 325 mg 12/06/17 17:30 12/08/17 17:03 Feosol - PO 325 mg TIDCM [facility] Administration Finasteride 5 mg 12/03/17 10:00 12/08/17 09:21 Proscar - PO 5 mg DAILY [facility] Administration Furosemide 40 mg 12/06/17 10:00 12/08/17 09:21 Lasix Injection - IVPUSH 40 mg DAILY [facility] Administration Hydralazine HCl 25 mg 12/03/17 10:00 12/08/17 09:21 Apresoline - PO 25 mg BID [facility] Administration Ceftazidime 1 gm/ Dextrose 50 mls @ 100 mls/hr 12/03/17 14:15 12/08/17 09:21 IVPB 100 mls/hr DAILY [facility] Administration Protocol Insulin Aspart 1 vial 12/03/17 07:00 12/08/17 16:31 Novolog Vial Sliding Scale - SQ Not Given ACHS [facility] Protocol Melatonin 15 mg 12/06/17 22:00 12/08/17 01:03 Melatonin PO 15 mg HS PRN Administration INSOMNIA Mupirocin 1 applic 12/06/17 15:00 12/08/17 15:16 Bactroban 2% Ointment - TP 1 applic TID [facility] Administration Nifedipine 60 mg 12/03/17 10:00 12/08/17 09:21 Procardia Xl - PO 60 mg DAILY [facility] Administration Raltegravir 400 mg 12/03/17 10:00 12/08/17 09:21 Isentress - PO 400 mg BID [facility] Administration Ritonavir 100 mg 12/03/17 10:00 12/08/17 09:22 Norvir - PO 100 mg BID [facility] Administration Sodium Bicarbonate 650 mg 12/03/17 10:00 12/08/17 09:21 Sodium Bicarbonate - PO 650 mg BID [facility] Administration Sucralfate 1 gm 12/07/17 22:00 12/08/17 17:03 Carafate Oral Suspension - PO 1 gm QID [facility] Administration Tamsulosin HCl 0.4 mg 12/03/17 10:00 12/08/17 09:21 Flomax - PO 0.4 mg BID [facility] Administration Impression 1. CKD 2. urinary retention 3. HIV 4. liver cirrhosis 5. Hep C 6. nephrolothiasis 7. DM 8. BPH 9. HTN 10. CLL 11. anemia 12. scrotal cellulitis Plan - cont with lasix - cont to monitor renal function - vascular called for AV fistula - abx per ID - renal diet - restrict fluid intake - pt has good urine output - discussed with medical team - will give another dose of procrit - cont iron supplements Dr Wells
[2017-12-08] MEDS ORDERED: FUROSEMIDE 40 MG/4 ML INJECTABLE VIAL IVPUSH ONE (19:15)
[2017-12-08] MEDS ORDERED: INSULIN (NOVOLOG) ASPART 100 UNITS/ML 10ML VIAL ONE (21:11)
[2017-12-09] MEDS ORDERED: PT OWN MED DRAWER 7, Y5N ONE ×2 (00:19→08:54)
[2017-12-09] MEDS: INSULIN SLIDING SCALE (NOVOLOG) 1 VIAL SQ SCH ×4 (06:30→22:22)
[2017-12-09] MEDS: MUPIROCIN 2% TOPICAL OINTMENT 22 GM TUBE TP SCH ×3 (06:30→22:21)
[2017-12-09] MEDS ORDERED: INSULIN (NOVOLOG) ASPART 100 UNITS/ML 10ML VIAL ONE (06:56)
[2017-12-09] MEDS ORDERED: INSULIN (LEVEMIR) 100 UNITS/ML UNITS SQ ONE (06:56)
[2017-12-09 08:06] LABS: EOS % 0.1 % (0-4.5); HEMATOCRIT 26.8 % (35.4-49); HEMOGLOBIN 8.3 GM/dL (11.7-16.9); LYMPH % 96.9 % (8-40); MCH 28.1 pg (25.7-33.7); MCHC 31.1 g/dl (32.0-35.9); MEAN CELL VOLUME 90.5 fl (80-96); MEAN PLT VOLUME 8.4 fl (7.5-11.1); MONO % 0.4 % (3.8-10.2); NEUT % 2.6 % (42.8-82.8); PLATELET COUNT 88 K/MM3 (134-434); RBC 2.96 M/mm3 (4.00-5.60); RDW 17.8 % (11.9-15.9); WHITE BLOOD COUNT 28.2 K/mm3 (4.0-10.0)
[2017-12-09 08:49] LABS: ALBUMIN 2.9 g/dl (3.4-5.0); ALK PHOS 74 U/L (45-117); ANION GAP 10 MMOL/L (8-16); BILIRUBIN,TOTAL 0.3 mg/dL (0.2-1); BLOOD UREA NITROGEN 101 mg/dL (7-18); CALCIUM 7.9 mg/dL (8.5-10.1); CHLORIDE 112 mmol/L (98-107); CO2 21 mmol/L (21-32); CREATININE 4.6 mg/dL (0.55-1.3); GLUCOSE,RANDOM 93 mg/dL (74-106); MAGNESIUM 2.8 mg/dL (1.8-2.4); PHOSPHOROUS 4.3 mg/dL (2.5-4.9); POTASSIUM 4.4 mmol/L (3.5-5.1); SGOT/AST 17 U/L (15-37); SGPT/ALT 13 U/L (13-61); SODIUM 143 mmol/L (136-145); TOT PROT 5.5 g/dl (6.4-8.2)
[2017-12-09] MEDS: SODIUM BICARBONATE 650 MG TABLET PO SCH ×2 (09:34→22:21)
[2017-12-09] MEDS: FUROSEMIDE 40 MG/4 ML INJECTABLE VIAL IVPUSH SCH (09:34)
[2017-12-09] MEDS: TAMSULOSIN HCL 0.4 MG CAP PO SCH ×2 (09:34→22:21)
[2017-12-09] MEDS: NIFEdipine E.R 60 MG TABLET (UD) PO SCH (09:34)
[2017-12-09] MEDS: FERROUS SO4 325 MG TABLET (FP) PO SCH ×3 (09:34→17:22)
[2017-12-09] MEDS: CARVEDILOL 6.25 MG TABLET (FP) PO SCH ×2 (09:34→22:20)
[2017-12-09] MEDS: FINASTERIDE 5 MG TABLET (FP) PO SCH (09:34)
[2017-12-09] MEDS: RITONAVIR 100 MG TABLET PO SCH ×2 (09:35→22:20)
[2017-12-09] MEDS: hydrALAZINE HCL 25 MG TABLET (FP) PO SCH ×2 (09:35→22:21)
[2017-12-09] MEDS: CEFTAZIDIME PENTAHYDRATE 1 GM in DEXTROSE 5%-WATER - 50 ML IVPB SCH (09:35)
[2017-12-09] MEDS: RILPIVIRINE HCL 25 MG TABLET PO SCH (09:35)
[2017-12-09] MEDS: ALLOPURINOL 100 MG TABLET (FP) PO SCH (09:35)
[2017-12-09] MEDS: SUCRALFATE 1 GM/10 ML UNIT DOSE CUPS PO SCH ×4 (09:35→22:19)
[2017-12-09] MEDS: CALCIUM CARBONATE 650 MG TABLET PO SCH (09:36)
[2017-12-09] MEDS: DARUNAVIR ETHANOLATE 600 MG TAB PO SCH ×2 (09:36→22:20)
[2017-12-09] MEDS: RALTEGRAVIR POTASSIUM 400 MG TAB PO SCH ×2 (09:36→22:19)
[2017-12-09] MEDS: CLOTRIMAZOLE/BETAMET DIPROP 15 GM TUBE TP SCH ×2 (09:44→22:20)
[2017-12-09] MEDS ORDERED: EPOETIN ALFA 10,000 UNIT/1 ML VIAL SQ ONE (10:00)
[2017-12-09 11:30] VITALS: BMI 26.4
[2017-12-09 12:01] LABS: ANISOCYTOSIS 1+; OVALOCYTE 1+; PLATELET ESTIMATE DECREASED; TEAR DROP CELLS 1+
--- NOTE | 2017-12-09 16:57 | PN ---
Progress Note, Physician History of Present Illness: Pt seen and examined at bedside. He is out of bed to chair and feels better. He denies shortness of breath. - Current Medication List Current Medications: Active Medications Acetaminophen (Tylenol -) 650 mg PO Q6H PRN PRN Reason: PAIN LEVEL 1-5 Last Admin: 12/08/17 16:25 Dose: 650 mg Acetaminophen (Ofirmev Injection -) 1,000 mg IVPB Q6H PRN PRN Reason: PAIN LEVEL 6-10 Last Admin: 12/06/17 12:53 Dose: 1,000 mg Allopurinol (Zyloprim -) 100 mg PO DAILY [facility] Last Admin: 12/09/17 09:35 Dose: 100 mg Calcium Carbonate (Calcium Carbonate -) 650 mg PO DAILY [facility] Last Admin: 12/09/17 09:36 Dose: 650 mg Carvedilol (Coreg -) 6.25 mg PO BID [facility] Last Admin: 12/09/17 09:34 Dose: 6.25 mg Clotrimazole (Lotrisone Cream (Small Tube)) 1 applic TP BID [facility] Last Admin: 12/09/17 09:44 Dose: 1 applic Darunavir (Prezista -) 600 mg PO BID [facility] Last Admin: 12/09/17 09:36 Dose: 600 mg Ferrous Sulfate (Feosol -) 325 mg PO TIDCM [facility] Last Admin: 12/09/17 13:25 Dose: 325 mg Finasteride (Proscar -) 5 mg PO DAILY [facility] Last Admin: 12/09/17 09:34 Dose: 5 mg Furosemide (Lasix Injection -) 60 mg IVPUSH DAILY [facility] Last Admin: 12/09/17 09:34 Dose: 60 mg Hydralazine HCl (Apresoline -) 25 mg PO BID [facility] Last Admin: 12/09/17 09:35 Dose: 25 mg Ceftazidime 1 gm/ Dextrose 50 mls @ 100 mls/hr IVPB DAILY [facility]; Protocol Last Admin: 12/09/17 09:35 Dose: 100 mls/hr Insulin Aspart (Novolog Vial Sliding Scale -) 1 vial SQ ACHS [facility]; Protocol Last Admin: 12/09/17 11:14 Dose: Not Given Melatonin (Melatonin) 15 mg PO HS PRN PRN Reason: INSOMNIA Last Admin: 12/08/17 21:26 Dose: 15 mg Mupirocin (Bactroban 2% Ointment -) 1 applic TP TID [facility] Last Admin: 12/09/17 13:25 Dose: 1 applic Nifedipine (Procardia Xl -) 60 mg PO DAILY [facility] Last Admin: 12/09/17 09:34 Dose: 60 mg Raltegravir (Isentress -) 400 mg PO BID [facility] Last Admin: 12/09/17 09:36 Dose: 400 mg Ritonavir (Norvir -) 100 mg PO BID [facility] Last Admin: 12/09/17 09:35 Dose: 100 mg Sodium Bicarbonate (Sodium Bicarbonate -) 650 mg PO BID [facility] Last Admin: 12/09/17 09:34 Dose: 650 mg Sucralfate (Carafate Oral Suspension -) 1 gm PO QID [facility] Last Admin: 12/09/17 13:25 Dose: 1 gm Tamsulosin HCl (Flomax -) 0.4 mg PO BID [facility] Last Admin: 12/09/17 09:34 Dose: 0.4 mg - Objective Vital Signs: Vital Signs Temperature 98.1 F 12/09/17 10:00 Pulse Rate 73 12/09/17 10:00 Respiratory Rate 18 12/09/17 10:00 Blood Pressure 139/61 12/09/17 10:00 O2 Sat by Pulse Oximetry (%) 96 12/09/17 09:00 Constitutional: Yes: Calm Eyes: Yes: Conjunctiva Clear HENT: Yes: Atraumatic Neck: Yes: Supple Cardiovascular: Yes: S1, S2 Respiratory: Yes: CTA Bilaterally Gastrointestinal: Yes: Soft Genitourinary: Yes: Lara Present Edema: Yes Edema: LLE: 2+, RLE: 2+ Neurological: Yes: Oriented Psychiatric: Yes: Oriented Labs: CBC, BMP 12/09/17 07:49 12/09/17 07:49 INR, PTT INR 1.28 (0.83-1.09) H 12/02/17 16:55 Problem List - Problems (1) Renal insufficiency Code(s): N28.9 - DISORDER OF KIDNEY AND URETER, UNSPECIFIED (2) Anemia Code(s): D64.9 - ANEMIA, UNSPECIFIED (3) CKD (chronic kidney disease) Code(s): N18.9 - CHRONIC KIDNEY DISEASE, UNSPECIFIED (4) CLL (chronic lymphocytic leukemia) Code(s): C91.90 - LYMPHOID LEUKEMIA, UNSPECIFIED NOT HAVING ACHIEVED REMISSION (5) HIV (human immunodeficiency virus infection) Code(s): B20 - HUMAN IMMUNODEFICIENCY VIRUS [HIV] DISEASE Assessment/Plan Current Medications Generic Name Dose Route Start Last Admin Trade Name Freq PRN Reason Stop Dose Admin Acetaminophen 650 mg 12/04/17 13:36 12/08/17 16:25 Tylenol - PO 650 mg Q6H PRN Administration PAIN LEVEL 1-5 Acetaminophen 1,000 mg 12/05/17 22:48 12/06/17 12:53 Ofirmev Injection - IVPB 1,000 mg Q6H PRN Administration PAIN LEVEL 6-10 Allopurinol 100 mg 12/03/17 10:00 12/09/17 09:35 Zyloprim - PO 100 mg DAILY [facility] Administration Calcium Carbonate 650 mg 12/07/17 16:00 12/09/17 09:36 Calcium Carbonate - PO 650 mg DAILY [facility] Administration Carvedilol 6.25 mg 12/03/17 10:00 12/09/17 09:34 Coreg - PO 6.25 mg BID [facility] Administration Clotrimazole 1 applic 12/07/17 13:30 12/09/17 09:44 Lotrisone Cream (Small Tube) TP 1 applic BID [facility] Administration Darunavir 600 mg 12/03/17 10:00 12/09/17 09:36 Prezista - PO 600 mg BID [facility] Administration Ferrous Sulfate 325 mg 12/06/17 17:30 12/09/17 13:25 Feosol - PO 325 mg TIDCM [facility] Administration Finasteride 5 mg 12/03/17 10:00 12/09/17 09:34 Proscar - PO 5 mg DAILY [facility] Administration Furosemide 60 mg 12/08/17 18:55 12/09/17 09:34 Lasix Injection - IVPUSH 60 mg DAILY [facility] Administration Hydralazine HCl 25 mg 12/03/17 10:00 12/09/17 09:35 Apresoline - PO 25 mg BID [facility] Administration Ceftazidime 1 gm/ Dextrose 50 mls @ 100 mls/hr 12/03/17 14:15 12/09/17 09:35 IVPB 100 mls/hr DAILY [facility] Administration Protocol Insulin Aspart 1 vial 12/03/17 07:00 12/09/17 11:14 Novolog Vial Sliding Scale - SQ Not Given ACHS [facility] Protocol Melatonin 15 mg 12/06/17 22:00 12/08/17 21:26 Melatonin PO 15 mg HS PRN Administration INSOMNIA Mupirocin 1 applic 12/06/17 15:00 12/09/17 13:25 Bactroban 2% Ointment - TP 1 applic TID [facility] Administration Nifedipine 60 mg 12/03/17 10:00 12/09/17 09:34 Procardia Xl - PO 60 mg DAILY [facility] Administration Raltegravir 400 mg 12/03/17 10:00 12/09/17 09:36 Isentress - PO 400 mg BID [facility] Administration Ritonavir 100 mg 12/03/17 10:00 12/09/17 09:35 Norvir - PO 100 mg BID [facility] Administration Sodium Bicarbonate 650 mg 12/03/17 10:00 12/09/17 09:34 Sodium Bicarbonate - PO 650 mg BID [facility] Administration Sucralfate 1 gm 12/07/17 22:00 12/09/17 13:25 Carafate Oral Suspension - PO 1 gm QID [facility] Administration Tamsulosin HCl 0.4 mg 12/03/17 10:00 12/09/17 09:34 Flomax - PO 0.4 mg BID [facility] Administration Impression 1. CKD 2. urinary retention 3. HIV 4. liver cirrhosis 5. Hep C 6. nephrolothiasis 7. DM 8. BPH 9. HTN 10. CLL 11. anemia 12. scrotal cellulitis Plan - cont lasix - will give another dose - volume status stabilizing - renal diet and limit fluid intake - urology follow up for cysto as he is more stable - vascular for fistula - cont iron supplements Dr Wells
[2017-12-09] MEDS ORDERED: FUROSEMIDE 40 MG/4 ML INJECTABLE VIAL IVPUSH ONE (17:15)
--- NOTE | 2017-12-09 20:16 | PN ---
Physical Exam: SUBJECTIVE: Patient seen and examined OBJECTIVE: Vital Signs Period Temp Pulse Resp BP Sys/Ventura Pulse Ox Last 24 Hr 97.5 F-98.4 F 67-73 18-20 120-139/56-61 96 GENERAL: The patient is awake, alert, and fully oriented, in no acute distress. Tremors resolved. LUNGS: Breath sounds equal, clear to auscultation bilaterally, no wheezes, no crackles, no accessory muscle use. HEART: Regular rate and rhythm, S1, S2 ABDOMEN: Markedly distended, not tender, no guarding, no rebound : Ortiz in place draining clear yellow urine; no pus around meatus; penis and scrotum are significantly swollen and tender LOWER EXTREMITIES: LLE 3+ pitting edema; RLE 2+ edema; no calf tenderness; TEDs NEUROLOGICAL: Cranial nerves II through XII grossly intact. Normal speech, gait not observed Laboratory Results - last 24 hr 12/08/17 12/09/17 12/09/17 21:19 06:29 07:49 WBC RBC Hgb Hct MCV MCH MCHC RDW Plt Count MPV Absolute Neuts (auto) Total Counted Neutrophils % Neutrophils % (Manual) Lymphocytes % Lymphocytes % (Manual) Monocytes % Monocytes % (Manual) Eosinophils % Basophils % Blast Cells % (Manual) Nucleated RBC % Platelet Estimate Polychromasia Poikilocytosis Anisocytosis Tear Drop Cells Ovalocytes Sodium 143 Potassium 4.4 Chloride 112 H Carbon Dioxide 21 Anion Gap 10 BUN 101 H Creatinine 4.6 H Creat Clearance w eGFR 12.89 POC Glucometer 119 106 Random Glucose 93 Calcium 7.9 L Phosphorus 4.3 Magnesium 2.8 H Total Bilirubin 0.3 AST 17 ALT 13 Alkaline Phosphatase 74 Total Protein 5.5 L Albumin 2.9 L 12/09/17 12/09/17 12/09/17 07:49 10:58 17:06 WBC 28.2 H RBC 2.96 L Hgb 8.3 L Hct 26.8 L MCV 90.5 MCH 28.1 MCHC 31.1 L RDW 17.8 H Plt Count 88 L MPV 8.4 Absolute Neuts (auto) 0.7 L Total Counted 100 Neutrophils % 2.6 L Neutrophils % (Manual) 3.0 L Lymphocytes % 96.9 H Lymphocytes % (Manual) 88.0 H* Monocytes % 0.4 L Monocytes % (Manual) 3 L Eosinophils % 0.1 Basophils % 0.0 Blast Cells % (Manual) 2 H D Nucleated RBC % 0 Platelet Estimate Decreased Polychromasia 2+ Poikilocytosis 1+ Anisocytosis 1+ Tear Drop Cells 1+ Ovalocytes 1+ Sodium Potassium Chloride Carbon Dioxide Anion Gap BUN Creatinine Creat Clearance w eGFR POC Glucometer 130 203 Random Glucose Calcium Phosphorus Magnesium Total Bilirubin AST ALT Alkaline Phosphatase Total Protein Albumin Active Medications Generic Name Dose Route Start Last Admin Trade Name Freq PRN Reason Stop Dose Admin Acetaminophen 650 mg 12/04/17 13:36 12/08/17 16:25 Tylenol - PO 650 mg Q6H PRN Administration PAIN LEVEL 1-5 Acetaminophen 1,000 mg 12/05/17 22:48 12/06/17 12:53 Ofirmev Injection - IVPB 1,000 mg Q6H PRN Administration PAIN LEVEL 6-10 Allopurinol 100 mg 12/03/17 10:00 12/09/17 09:35 Zyloprim - PO 100 mg DAILY [facility] Administration Calcium Carbonate 650 mg 12/07/17 16:00 12/09/17 09:36 Calcium Carbonate - PO 650 mg DAILY [facility] Administration Carvedilol 6.25 mg 12/03/17 10:00 12/09/17 09:34 Coreg - PO 6.25 mg BID [facility] Administration Clotrimazole 1 applic 12/07/17 13:30 12/09/17 09:44 Lotrisone Cream (Small Tube) TP 1 applic BID [facility] Administration Darunavir 600 mg 12/03/17 10:00 12/09/17 09:36 Prezista - PO 600 mg BID [facility] Administration Ferrous Sulfate 325 mg 12/06/17 17:30 12/09/17 17:22 Feosol - PO 325 mg TIDCM [facility] Administration Finasteride 5 mg 12/03/17 10:00 12/09/17 09:34 Proscar - PO 5 mg DAILY [facility] Administration Furosemide 60 mg 12/08/17 18:55 12/09/17 09:34 Lasix Injection - IVPUSH 60 mg DAILY [facility] Administration Hydralazine HCl 25 mg 12/03/17 10:00 12/09/17 09:35 Apresoline - PO 25 mg BID [facility] Administration Ceftazidime 1 gm/ Dextrose 50 mls @ 100 mls/hr 12/03/17 14:15 12/09/17 09:35 IVPB 100 mls/hr DAILY [facility] Administration Protocol Insulin Aspart 1 vial 12/03/17 07:00 12/09/17 17:22 Novolog Vial Sliding Scale - SQ 4 units ACHS [facility] Administration Protocol Melatonin 15 mg 12/06/17 22:00 12/08/17 21:26 Melatonin PO 15 mg HS PRN Administration INSOMNIA Mupirocin 1 applic 12/06/17 15:00 12/09/17 13:25 Bactroban 2% Ointment - TP 1 applic TID [facility] Administration Nifedipine 60 mg 12/03/17 10:00 12/09/17 09:34 Procardia Xl - PO 60 mg DAILY [facility] Administration Raltegravir 400 mg 12/03/17 10:00 12/09/17 09:36 Isentress - PO 400 mg BID [facility] Administration Ritonavir 100 mg 12/03/17 10:00 12/09/17 09:35 Norvir - PO 100 mg BID [facility] Administration Sodium Bicarbonate 650 mg 12/03/17 10:00 12/09/17 09:34 Sodium Bicarbonate - PO 650 mg BID [facility] Administration Sucralfate 1 gm 12/07/17 22:00 12/09/17 17:21 Carafate Oral Suspension - PO 1 gm QID [facility] Administration Tamsulosin HCl 0.4 mg 12/03/17 10:00 12/09/17 09:34 Flomax - PO 0.4 mg BID [facility] Administration ASSESSMENT/PLAN: 67 year-old male with a PMH significant for HTN, CAD, Type II DM, HIV/AIDS, Hep C, cirrhosis, CKD, chronic anemia, CLL, BPH, urinary retention with ortiz x 3 months. Admitted for UTI. Pseudomonas UTI Penile shaft cellulitis --10/30/17 urine culture grew pseudomonas --empiric cetazedime (day #7) --C&G pending BPH Urinary retention --ortiz was placed 3 months ago for retention, changed 2 months ago and not since; in ED pus around meatus; ortiz dc'd and new one inserted --12/02 CTAP: mild right hydronephrosis and hydroureter without evidence of obstruction --continue tamsulosin --cystoscopy cancelled, decision made to defer elective invasive procedure until more stable CKD --significant volume overload on exam --Cr 5.5 (peak)-->4.6 --patient ready to start HD when necessary CLL --followed at [facility], last treatment 04/2017 Chronic anemia --last transfused 12/03 --h/h stable Hypertension Coronary artery disease --continue carvedilol, nifedipine, hydralazine Type II DM --Novolog sliding scale coverage Gout --continue allopurinol HIV/AIDS --continue retrovirals Hepatitis C --s/p Harvoni --LFTs stable FEN Fluids: PO intake adequate Electrolytes: replete as indicated Nutrition: diabetic low sodium DVT prophylaxis: d/c'd heparin due to low platelets; SCDs, TEDs, oob, ambulation Dispo: continues to require inpatient care. Visit type - Emergency Visit Emergency Visit: Yes ED Registration Date: 12/02/17 Care time: The patient presented to the Emergency Department on the above date and was hospitalized for further evaluation of their emergent condition. - New Patient This patient is new to me today: No - Critical Care Critical Care patient: No
--- NOTE | 2017-12-09 20:16 | PN ---
Physical Exam: SUBJECTIVE: Patient seen and examined OBJECTIVE: Vital Signs Period Temp Pulse Resp BP Sys/Ventura Pulse Ox Last 24 Hr 97.5 F-98.4 F 67-73 18-20 120-139/56-61 96 GENERAL: The patient is awake, alert, and fully oriented, in no acute distress. Tremors improved. LUNGS: Breath sounds equal, clear to auscultation bilaterally, no wheezes, no crackles, no accessory muscle use. HEART: Regular rate and rhythm, S1, S2 ABDOMEN: Markedly distended, not tender, no guarding, no rebound : Ortiz in place draining clear yellow urine; no pus around meatus; penis and scrotum are significantly swollen and tender LOWER EXTREMITIES: LLE 3+ pitting edema; RLE 2+ edema; no calf tenderness; TEDs NEUROLOGICAL: Cranial nerves II through XII grossly intact. Normal speech, gait not observed Active Medications Generic Name Dose Route Start Trade Name Freq PRN Reason Stop Acetaminophen 650 mg 12/04/17 13:36 Tylenol - PO Q6H PRN PAIN LEVEL 1-5 Acetaminophen 1,000 mg 12/05/17 22:48 Ofirmev Injection - IVPB Q6H PRN PAIN LEVEL 6-10 Allopurinol 100 mg 12/03/17 10:00 Zyloprim - PO DAILY [facility] Calcium Carbonate 650 mg 12/07/17 16:00 Calcium Carbonate - PO DAILY [facility] Carvedilol 6.25 mg 12/03/17 10:00 Coreg - PO BID [facility] Clotrimazole 1 applic 12/07/17 13:30 Lotrisone Cream (Small Tube) TP BID [facility] Darunavir 600 mg 12/03/17 10:00 Prezista - PO BID [facility] Ferrous Sulfate 325 mg 12/06/17 17:30 Feosol - PO TIDCM [facility] Finasteride 5 mg 12/03/17 10:00 Proscar - PO DAILY [facility] Furosemide 60 mg 12/08/17 18:55 Lasix Injection - IVPUSH DAILY [facility] Hydralazine HCl 25 mg 12/03/17 10:00 Apresoline - PO BID [facility] Ceftazidime 1 gm/ Dextrose 50 mls @ 100 mls/hr 12/03/17 14:15 IVPB DAILY [facility] Protocol Insulin Aspart 1 vial 12/03/17 07:00 Novolog Vial Sliding Scale - SQ ACHS [facility] Protocol Melatonin 15 mg 12/06/17 22:00 Melatonin PO HS PRN [facility] Mupirocin 1 applic 12/06/17 15:00 Bactroban 2% Ointment - TP TID [facility] Nifedipine 60 mg 12/03/17 10:00 Procardia Xl - PO DAILY [facility] Raltegravir 400 mg 12/03/17 10:00 Isentress - PO BID [facility] Ritonavir 100 mg 12/03/17 10:00 Norvir - PO BID [facility] Sodium Bicarbonate 650 mg 12/03/17 10:00 Sodium Bicarbonate - PO BID [facility] Sucralfate 1 gm 12/07/17 22:00 Carafate Oral Suspension - PO QID [facility] Tamsulosin HCl 0.4 mg 12/03/17 10:00 Flomax - PO BID [facility] ASSESSMENT/PLAN: ASSESSMENT/PLAN 67 year-old male with a PMH significant for HTN, CAD, Type II DM, HIV/AIDS, Hep C, cirrhosis, CKD, chronic anemia, CLL, BPH, urinary retention with ortiz x 3 months. Admitted for UTI. Pseudomonas UTI Penile shaft cellulitis --10/30/17 urine culture grew pseudomonas --empiric cetazedime (day #6) --C&G pending BPH Urinary retention --ortiz was placed 3 months ago for retention, changed 2 months ago and not since; in ED pus around meatus; ortiz dc'd and new one inserted --12/02 CTAP: mild right hydronephrosis and hydroureter without evidence of obstruction --continue tamsulosin --cystoscopy cancelled, decision made to defer elective invasive procedure until more stable CKD --significant volume overload on exam --Cr 5.5 (peak)-->4.8 --patient ready to start HD when necessary CLL --followed at [facility], last treatment 04/2017 Chronic anemia --last transfused 12/03 --h/h stable Hypertension Coronary artery disease --continue carvedilol, nifedipine, hydralazine Type II DM --Novolog sliding scale coverage Gout --continue allopurinol HIV/AIDS --continue retrovirals Hepatitis C --s/p Harvoni --LFTs stable FEN Fluids: PO intake adequate Electrolytes: replete as indicated Nutrition: diabetic low sodium DVT prophylaxis: d/c'd heparin due to low platelets; SCDs, TEDs, oob, ambulation Dispo: continues to require inpatient care. Visit type - Emergency Visit Emergency Visit: Yes ED Registration Date: 12/02/17 Care time: The patient presented to the Emergency Department on the above date and was hospitalized for further evaluation of their emergent condition. - New Patient This patient is new to me today: No - Critical Care Critical Care patient: No
[2017-12-09] MEDS: MELATONIN 5 MG TABLETS PO PRN (22:24)
[2017-12-10] MEDS: INSULIN SLIDING SCALE (NOVOLOG) 1 VIAL SQ SCH ×4 (06:45→22:07)
[2017-12-10] MEDS: MUPIROCIN 2% TOPICAL OINTMENT 22 GM TUBE TP SCH ×3 (06:45→22:05)
[2017-12-10 06:53] LABS: ANION GAP 7 MMOL/L (8-16); BLOOD UREA NITROGEN 94 mg/dL (7-18); CALCIUM 7.9 mg/dL (8.5-10.1); CHLORIDE 114 mmol/L (98-107); CO2 21 mmol/L (21-32); CREATININE 4.1 mg/dL (0.55-1.3); GLUCOSE,RANDOM 103 mg/dL (74-106); POTASSIUM 4.1 mmol/L (3.5-5.1); SODIUM 142 mmol/L (136-145)
[2017-12-10] MEDS: CEFTAZIDIME PENTAHYDRATE 1 GM in DEXTROSE 5%-WATER - 50 ML IVPB SCH (09:52)
[2017-12-10] MEDS: hydrALAZINE HCL 25 MG TABLET (FP) PO SCH ×2 (09:53→22:05)
[2017-12-10] MEDS: CARVEDILOL 6.25 MG TABLET (FP) PO SCH ×2 (09:53→22:05)
[2017-12-10] MEDS: FERROUS SO4 325 MG TABLET (FP) PO SCH ×3 (09:53→17:44)
[2017-12-10] MEDS: FINASTERIDE 5 MG TABLET (FP) PO SCH (09:54)
[2017-12-10] MEDS: ALLOPURINOL 100 MG TABLET (FP) PO SCH (09:54)
[2017-12-10] MEDS: SODIUM BICARBONATE 650 MG TABLET PO SCH ×2 (09:54→22:05)
[2017-12-10] MEDS: SUCRALFATE 1 GM/10 ML UNIT DOSE CUPS PO SCH ×4 (09:54→22:07)
[2017-12-10] MEDS: NIFEdipine E.R 60 MG TABLET (UD) PO SCH (09:55)
[2017-12-10] MEDS: FUROSEMIDE 40 MG/4 ML INJECTABLE VIAL IVPUSH SCH (09:55)
[2017-12-10] MEDS: CALCIUM CARBONATE 650 MG TABLET PO SCH (09:57)
[2017-12-10] MEDS: RILPIVIRINE HCL 25 MG TABLET PO SCH (09:58)
[2017-12-10] MEDS: RITONAVIR 100 MG TABLET PO SCH ×2 (09:59→22:05)
[2017-12-10] MEDS: RALTEGRAVIR POTASSIUM 400 MG TAB PO SCH ×2 (09:59→22:05)
[2017-12-10] MEDS: DARUNAVIR ETHANOLATE 600 MG TAB PO SCH ×2 (10:00→22:05)
[2017-12-10] MEDS: CLOTRIMAZOLE/BETAMET DIPROP 15 GM TUBE TP SCH ×2 (10:01→22:05)
[2017-12-10] MEDS: TAMSULOSIN HCL 0.4 MG CAP PO SCH ×2 (10:02→22:05)
--- NOTE | 2017-12-10 11:25 | PN ---
Physical Exam: SUBJECTIVE: Patient seen and examined. OBJECTIVE: Vital Signs Period Temp Pulse Resp BP Sys/Ventura Pulse Ox Last 24 Hr 97.5 F-98.8 F 67-74 18-20 120-145/49-60 96 GENERAL: The patient is awake, alert, and fully oriented, in no acute distress. Tremors resolved. LUNGS: Breath sounds equal, clear to auscultation bilaterally, no wheezes, no crackles, no accessory muscle use. HEART: Regular rate and rhythm, S1, S2 ABDOMEN: Markedly distended, not tender, no guarding, no rebound : Ortiz in place draining clear yellow urine; penile swelling improved, scrotal swelling resolved LOWER EXTREMITIES: LLE 3+ pitting edema; RLE 2+ edema; no calf tenderness; TEDs NEUROLOGICAL: Cranial nerves II through XII grossly intact. Normal speech, gait not observed Laboratory Results - last 24 hr 12/09/17 12/09/17 12/09/17 07:49 17:06 22:19 Total Counted 100 Neutrophils % (Manual) 3.0 L Lymphocytes % (Manual) 88.0 H* Monocytes % (Manual) 3 L Blast Cells % (Manual) 2 H D Platelet Estimate Decreased Polychromasia 2+ Poikilocytosis 1+ Anisocytosis 1+ Tear Drop Cells 1+ Ovalocytes 1+ Sodium Potassium Chloride Carbon Dioxide Anion Gap BUN Creatinine Creat Clearance w eGFR POC Glucometer 203 94 Random Glucose Calcium 12/10/17 12/10/17 06:00 06:44 Total Counted Neutrophils % (Manual) Lymphocytes % (Manual) Monocytes % (Manual) Blast Cells % (Manual) Platelet Estimate Polychromasia Poikilocytosis Anisocytosis Tear Drop Cells Ovalocytes Sodium 142 Potassium 4.1 Chloride 114 H Carbon Dioxide 21 Anion Gap 7 L BUN 94 H Creatinine 4.1 H Creat Clearance w eGFR 14.72 POC Glucometer 121 Random Glucose 103 Calcium 7.9 L Active Medications Generic Name Dose Route Start Last Admin Trade Name Freq PRN Reason Stop Dose Admin Acetaminophen 650 mg 12/04/17 13:36 12/08/17 16:25 Tylenol - PO 650 mg Q6H PRN Administration PAIN LEVEL 1-5 Acetaminophen 1,000 mg 12/05/17 22:48 12/06/17 12:53 Ofirmev Injection - IVPB 1,000 mg Q6H PRN Administration PAIN LEVEL 6-10 Allopurinol 100 mg 12/03/17 10:00 12/10/17 09:54 Zyloprim - PO 100 mg DAILY [facility] Administration Calcium Carbonate 650 mg 12/07/17 16:00 12/10/17 09:57 Calcium Carbonate - PO 650 mg DAILY [facility] Administration Carvedilol 6.25 mg 12/03/17 10:00 12/10/17 09:53 Coreg - PO 6.25 mg BID [facility] Administration Clotrimazole 1 applic 12/07/17 13:30 12/10/17 10:01 Lotrisone Cream (Small Tube) TP 1 applic BID [facility] Administration Darunavir 600 mg 12/03/17 10:00 12/10/17 10:00 Prezista - PO 600 mg BID [facility] Administration Ferrous Sulfate 325 mg 12/06/17 17:30 12/10/17 09:53 Feosol - PO 325 mg TIDCM [facility] Administration Finasteride 5 mg 12/03/17 10:00 12/10/17 09:54 Proscar - PO 5 mg DAILY [facility] Administration Furosemide 60 mg 12/08/17 18:55 12/10/17 09:55 Lasix Injection - IVPUSH 60 mg DAILY [facility] Administration Hydralazine HCl 25 mg 12/03/17 10:00 12/10/17 09:53 Apresoline - PO 25 mg BID [facility] Administration Ceftazidime 1 gm/ Dextrose 50 mls @ 100 mls/hr 12/03/17 14:15 12/10/17 09:52 IVPB 100 mls/hr DAILY [facility] Administration Protocol Insulin Aspart 1 vial 12/03/17 07:00 12/10/17 11:23 Novolog Vial Sliding Scale - SQ Not Given ACHS [facility] Protocol Melatonin 15 mg 12/06/17 22:00 12/09/17 22:24 Melatonin PO 15 mg HS PRN Administration INSOMNIA Mupirocin 1 applic 12/06/17 15:00 12/10/17 06:45 Bactroban 2% Ointment - TP 1 applic TID [facility] Administration Nifedipine 60 mg 12/03/17 10:00 12/10/17 09:55 Procardia Xl - PO 60 mg DAILY [facility] Administration Raltegravir 400 mg 12/03/17 10:00 12/10/17 09:59 Isentress - PO 400 mg BID [facility] Administration Ritonavir 100 mg 12/03/17 10:00 12/10/17 09:59 Norvir - PO 100 mg BID [facility] Administration Sodium Bicarbonate 650 mg 12/03/17 10:00 12/10/17 09:54 Sodium Bicarbonate - PO 650 mg BID [facility] Administration Sucralfate 1 gm 12/07/17 22:00 12/10/17 09:54 Carafate Oral Suspension - PO 1 gm QID [facility] Administration Tamsulosin HCl 0.4 mg 12/03/17 10:00 12/10/17 10:02 Flomax - PO 0.4 mg BID [facility] Administration ASSESSMENT/PLAN: 67 year-old male with a PMH significant for HTN, CAD, Type II DM, HIV/AIDS, Hep C, cirrhosis, CKD, chronic anemia, CLL, BPH, urinary retention with ortiz x 3 months. Admitted for UTI. Pseudomonas UTI Penile shaft cellulitis --10/30/17 urine culture grew pseudomonas --empiric ceftazidime (day #9); complete 10 days, 12/11 last dose --C&G pending BPH Urinary retention --ortiz was placed 3 months ago for retention, changed 2 months ago and not since; in ED pus around meatus; ortiz dc'd and new one inserted --12/02 CTAP: mild right hydronephrosis and hydroureter without evidence of obstruction --continue tamsulosin --cystoscopy cancelled, decision made to defer elective invasive procedure until more stable --discharge home with ortiz, outpatient followup with Dr. Loomis CKD --significant volume overload on exam --Cr 5.5 (peak) trending steadily downward, today 4.1 --for vein mapping this afternoon CLL --followed at [facility], last treatment 04/2017 Chronic anemia --last transfused 12/03 --h/h stable Hypertension Coronary artery disease --continue carvedilol, nifedipine, hydralazine Type II DM --Novolog sliding scale coverage Gout --continue allopurinol HIV/AIDS --continue retrovirals Hepatitis C --s/p Rosaliaoni --LFTs stable FEN Fluids: PO intake adequate Electrolytes: replete as indicated Nutrition: diabetic low sodium DVT prophylaxis: d/c'd heparin due to low platelets; SCDs, TEDs, oob, ambulation Dispo: Last dose abx tomorrow morning; can be discharged after vein mapping complete with close outpatient followup with Drs. Wells and Vladislav. Full code. Visit type - Emergency Visit Emergency Visit: Yes ED Registration Date: 12/02/17 Care time: The patient presented to the Emergency Department on the above date and was hospitalized for further evaluation of their emergent condition. - New Patient This patient is new to me today: No - Critical Care Critical Care patient: No
--- NOTE | 2017-12-10 15:35 | PN ---
Progress Note, Physician Chief Complaint: Awake , alert Supine in bed No c/o penile, scrotal pain Afebrile WBC remains elevated (in setting of CLL) BC one anaerobic bottle GPR [place] = contaminant - Current Medication List Current Medications: Active Medications Acetaminophen (Tylenol -) 650 mg PO Q6H PRN PRN Reason: PAIN LEVEL 1-5 Last Admin: 12/08/17 16:25 Dose: 650 mg Allopurinol (Zyloprim -) 100 mg PO DAILY [facility] Last Admin: 12/10/17 09:54 Dose: 100 mg Calcium Carbonate (Calcium Carbonate -) 650 mg PO DAILY [facility] Last Admin: 12/10/17 09:57 Dose: 650 mg Carvedilol (Coreg -) 6.25 mg PO BID [facility] Last Admin: 12/10/17 09:53 Dose: 6.25 mg Clotrimazole (Lotrisone Cream (Small Tube)) 1 applic TP BID [facility] Last Admin: 12/10/17 10:01 Dose: 1 applic Darunavir (Prezista -) 600 mg PO BID [facility] Last Admin: 12/10/17 10:00 Dose: 600 mg Ferrous Sulfate (Feosol -) 325 mg PO TIDCM [facility] Last Admin: 12/10/17 13:16 Dose: 325 mg Finasteride (Proscar -) 5 mg PO DAILY [facility] Last Admin: 12/10/17 09:54 Dose: 5 mg Furosemide (Lasix Injection -) 60 mg IVPUSH DAILY [facility] Last Admin: 12/10/17 09:55 Dose: 60 mg Hydralazine HCl (Apresoline -) 25 mg PO BID [facility] Last Admin: 12/10/17 09:53 Dose: 25 mg Insulin Aspart (Novolog Vial Sliding Scale -) [address] [facility]; Protocol Last Admin: 12/10/17 11:23 Dose: Not Given Melatonin (Melatonin) 15 mg PO HS PRN PRN Reason: INSOMNIA Last Admin: 12/09/17 22:24 Dose: 15 mg Mupirocin (Bactroban 2% Ointment -) 1 applic TP TID [facility] Last Admin: 12/10/17 13:17 Dose: 1 applic Nifedipine (Procardia Xl -) 60 mg PO DAILY [facility] Last Admin: 12/10/17 09:55 Dose: 60 mg Raltegravir (Isentress -) 400 mg PO BID [facility] Last Admin: 12/10/17 09:59 Dose: 400 mg Ritonavir (Norvir -) 100 mg PO BID [facility] Last Admin: 12/10/17 09:59 Dose: 100 mg Sodium Bicarbonate (Sodium Bicarbonate -) 650 mg PO BID [facility] Last Admin: 12/10/17 09:54 Dose: 650 mg Sucralfate (Carafate Oral Suspension -) 1 gm PO QID [facility] Last Admin: 12/10/17 13:16 Dose: 1 gm Tamsulosin HCl (Flomax -) 0.4 mg PO BID [facility] Last Admin: 12/10/17 10:02 Dose: 0.4 mg - Objective Vital Signs: Vital Signs Temperature 97.6 F 12/10/17 14:50 Pulse Rate 65 12/10/17 14:50 Respiratory Rate 20 12/10/17 14:50 Blood Pressure 123/53 L 12/10/17 14:50 O2 Sat by Pulse Oximetry (%) 95 12/10/17 09:00 Constitutional: Yes: No Distress Eyes: Yes: Conjunctiva Clear Cardiovascular: Yes: Regular Rate and Rhythm, S1, S2 Respiratory: Yes: CTA Bilaterally Gastrointestinal: Yes: Normal Bowel Sounds, Soft. No: Tenderness Genitourinary: Yes: Other (decreased penile edema No penile or scrotal tenderness) Labs: CBC, BMP 12/09/17 07:49 12/10/17 06:00 INR, PTT INR 1.28 (0.83-1.09) H 12/02/17 16:55 Assessment/Plan Penile shaft cellulitis - improved CKD Hx Pseudomonas UTI CLL HIV + BC = contaminant Repeat BC no growth Day #9 ceftazidime Complete 10d course
[2017-12-10] MEDS ORDERED: FUROSEMIDE 40 MG/4 ML INJECTABLE VIAL IVPUSH ONE (16:49)
--- NOTE | 2017-12-10 16:49 | PN ---
Progress Note, Physician History of Present Illness: Pt seen and examined at bedside. He is awake and alert. He denies shortness of breath. - Current Medication List Current Medications: Active Medications Acetaminophen (Tylenol -) 650 mg PO Q6H PRN PRN Reason: PAIN LEVEL 1-5 Last Admin: 12/08/17 16:25 Dose: 650 mg Allopurinol (Zyloprim -) 100 mg PO DAILY [facility] Last Admin: 12/10/17 09:54 Dose: 100 mg Calcium Carbonate (Calcium Carbonate -) 650 mg PO DAILY [facility] Last Admin: 12/10/17 09:57 Dose: 650 mg Carvedilol (Coreg -) 6.25 mg PO BID [facility] Last Admin: 12/10/17 09:53 Dose: 6.25 mg Clotrimazole (Lotrisone Cream (Small Tube)) 1 applic TP BID [facility] Last Admin: 12/10/17 10:01 Dose: 1 applic Darunavir (Prezista -) 600 mg PO BID [facility] Last Admin: 12/10/17 10:00 Dose: 600 mg Ferrous Sulfate (Feosol -) 325 mg PO TIDCM [facility] Last Admin: 12/10/17 13:16 Dose: 325 mg Finasteride (Proscar -) 5 mg PO DAILY [facility] Last Admin: 12/10/17 09:54 Dose: 5 mg Furosemide (Lasix Injection -) 60 mg IVPUSH DAILY [facility] Last Admin: 12/10/17 09:55 Dose: 60 mg Hydralazine HCl (Apresoline -) 25 mg PO BID [facility] Last Admin: 12/10/17 09:53 Dose: 25 mg Ceftazidime 1 gm/ Dextrose 100 mls @ 200 mls/hr IVPB DAILY [facility]; Protocol Insulin Aspart (Novolog Vial Sliding Scale -) 1 vial SQ ACHS [facility]; Protocol Last Admin: 12/10/17 16:18 Dose: Not Given Melatonin (Melatonin) 15 mg PO HS PRN PRN Reason: INSOMNIA Last Admin: 12/09/17 22:24 Dose: 15 mg Mupirocin (Bactroban 2% Ointment -) 1 applic TP TID [facility] Last Admin: 12/10/17 13:17 Dose: 1 applic Nifedipine (Procardia Xl -) 60 mg PO DAILY [facility] Last Admin: 12/10/17 09:55 Dose: 60 mg Raltegravir (Isentress -) 400 mg PO BID [facility] Last Admin: 12/10/17 09:59 Dose: 400 mg Ritonavir (Norvir -) 100 mg PO BID [facility] Last Admin: 12/10/17 09:59 Dose: 100 mg Sodium Bicarbonate (Sodium Bicarbonate -) 650 mg PO BID [facility] Last Admin: 12/10/17 09:54 Dose: 650 mg Sucralfate (Carafate Oral Suspension -) 1 gm PO QID [facility] Last Admin: 12/10/17 13:16 Dose: 1 gm Tamsulosin HCl (Flomax -) 0.4 mg PO BID [facility] Last Admin: 12/10/17 10:02 Dose: 0.4 mg - Objective Vital Signs: Vital Signs Temperature 97.6 F 12/10/17 14:50 Pulse Rate 65 12/10/17 14:50 Respiratory Rate 20 12/10/17 14:50 Blood Pressure 123/53 L 12/10/17 14:50 O2 Sat by Pulse Oximetry (%) 95 12/10/17 09:00 Constitutional: Yes: Calm Eyes: Yes: Conjunctiva Clear HENT: Yes: Atraumatic Cardiovascular: Yes: S1, S2 Respiratory: Yes: CTA Bilaterally Gastrointestinal: Yes: Soft Genitourinary: Yes: Lara Present Edema: Yes Edema: LLE: 1+, RLE: 1+ Neurological: Yes: Oriented Psychiatric: Yes: Oriented Labs: CBC, BMP 12/09/17 07:49 12/10/17 06:00 INR, PTT INR 1.28 (0.83-1.09) H 12/02/17 16:55 Problem List - Problems (1) Renal insufficiency Code(s): N28.9 - DISORDER OF KIDNEY AND URETER, UNSPECIFIED (2) Anemia Code(s): D64.9 - ANEMIA, UNSPECIFIED (3) CKD (chronic kidney disease) Code(s): N18.9 - CHRONIC KIDNEY DISEASE, UNSPECIFIED (4) CLL (chronic lymphocytic leukemia) Code(s): C91.90 - LYMPHOID LEUKEMIA, UNSPECIFIED NOT HAVING ACHIEVED REMISSION (5) HIV (human immunodeficiency virus infection) Code(s): B20 - HUMAN IMMUNODEFICIENCY VIRUS [HIV] DISEASE Assessment/Plan Current Medications Generic Name Dose Route Start Last Admin Trade Name Freq PRN Reason Stop Dose Admin Acetaminophen 650 mg 12/04/17 13:36 12/08/17 16:25 Tylenol - PO 650 mg Q6H PRN Administration PAIN LEVEL 1-5 Allopurinol 100 mg 12/03/17 10:00 12/10/17 09:54 Zyloprim - PO 100 mg DAILY [facility] Administration Calcium Carbonate 650 mg 12/07/17 16:00 12/10/17 09:57 Calcium Carbonate - PO 650 mg DAILY [facility] Administration Carvedilol 6.25 mg 12/03/17 10:00 12/10/17 09:53 Coreg - PO 6.25 mg BID [facility] Administration Clotrimazole 1 applic 12/07/17 13:30 12/10/17 10:01 Lotrisone Cream (Small Tube) TP 1 applic BID [facility] Administration Darunavir 600 mg 12/03/17 10:00 12/10/17 10:00 Prezista - PO 600 mg BID [facility] Administration Ferrous Sulfate 325 mg 12/06/17 17:30 12/10/17 13:16 Feosol - PO 325 mg TIDCM [facility] Administration Finasteride 5 mg 12/03/17 10:00 12/10/17 09:54 Proscar - PO 5 mg DAILY [facility] Administration Furosemide 60 mg 12/08/17 18:55 12/10/17 09:55 Lasix Injection - IVPUSH 60 mg DAILY [facility] Administration Hydralazine HCl 25 mg 12/03/17 10:00 12/10/17 09:53 Apresoline - PO 25 mg BID [facility] Administration Ceftazidime 1 gm/ Dextrose 100 mls @ 200 mls/hr 12/11/17 10:00 IVPB DAILY [facility] Protocol Insulin Aspart 1 vial 12/03/17 07:00 12/10/17 16:18 Novolog Vial Sliding Scale - SQ Not Given ACHS [facility] Protocol Melatonin 15 mg 12/06/17 22:00 12/09/17 22:24 Melatonin PO 15 mg HS PRN Administration INSOMNIA Mupirocin 1 applic 12/06/17 15:00 12/10/17 13:17 Bactroban 2% Ointment - TP 1 applic TID [facility] Administration Nifedipine 60 mg 12/03/17 10:00 12/10/17 09:55 Procardia Xl - PO 60 mg DAILY [facility] Administration Raltegravir 400 mg 12/03/17 10:00 12/10/17 09:59 Isentress - PO 400 mg BID [facility] Administration Ritonavir 100 mg 12/03/17 10:00 12/10/17 09:59 Norvir - PO 100 mg BID [facility] Administration Sodium Bicarbonate 650 mg 12/03/17 10:00 12/10/17 09:54 Sodium Bicarbonate - PO 650 mg BID [facility] Administration Sucralfate 1 gm 12/07/17 22:00 12/10/17 13:16 Carafate Oral Suspension - PO 1 gm QID [facility] Administration Tamsulosin HCl 0.4 mg 12/03/17 10:00 12/10/17 10:02 Flomax - PO 0.4 mg BID [facility] Administration Impression 1. CKD 2. urinary retention 3. HIV 4. liver cirrhosis 5. Hep C 6. nephrolothiasis 7. DM 8. BPH 9. HTN 10. CLL 11. anemia 12. scrotal cellulitis Plan - cont lasix, will give an extra dose - urology follow up for cysto - vascular eval for vein mapping - discussed plan with pt - cont iron supplements Dr Wells
[2017-12-10] MEDS ORDERED: PT OWN MED DRAWER 7, Y5N ONE (20:37)
[2017-12-10] MEDS: MELATONIN 5 MG TABLETS PO PRN (22:10)
[2017-12-11] MEDS: MUPIROCIN 2% TOPICAL OINTMENT 22 GM TUBE TP SCH ×3 (06:59→22:02)
[2017-12-11] MEDS: INSULIN SLIDING SCALE (NOVOLOG) 1 VIAL SQ SCH ×4 (06:59→22:04)
[2017-12-11] MEDS: FERROUS SO4 325 MG TABLET (FP) PO SCH ×3 (08:31→17:36)
[2017-12-11] MEDS ORDERED: PT OWN MED DRAWER 7, Y5N ONE ×4 (10:59→20:51)
[2017-12-11] MEDS: ALLOPURINOL 100 MG TABLET (FP) PO SCH (11:07)
[2017-12-11] MEDS: hydrALAZINE HCL 25 MG TABLET (FP) PO SCH ×2 (11:07→22:02)
[2017-12-11] MEDS: TAMSULOSIN HCL 0.4 MG CAP PO SCH ×2 (11:07→22:01)
[2017-12-11] MEDS: FUROSEMIDE 40 MG/4 ML INJECTABLE VIAL IVPUSH SCH (11:08)
[2017-12-11] MEDS: CARVEDILOL 6.25 MG TABLET (FP) PO SCH ×2 (11:08→22:01)
[2017-12-11] MEDS: SUCRALFATE 1 GM/10 ML UNIT DOSE CUPS PO SCH ×4 (11:09→22:01)
[2017-12-11] MEDS: SODIUM BICARBONATE 650 MG TABLET PO SCH ×2 (11:09→22:01)
[2017-12-11] MEDS: FINASTERIDE 5 MG TABLET (FP) PO SCH (11:10)
[2017-12-11] MEDS: NIFEdipine E.R 60 MG TABLET (UD) PO SCH (11:10)
[2017-12-11] MEDS: RITONAVIR 100 MG TABLET PO SCH ×2 (11:10→22:02)
[2017-12-11] MEDS: RALTEGRAVIR POTASSIUM 400 MG TAB PO SCH ×2 (11:11→22:02)
[2017-12-11] MEDS: DARUNAVIR ETHANOLATE 600 MG TAB PO SCH ×2 (11:11→22:03)
[2017-12-11] MEDS: CALCIUM CARBONATE 650 MG TABLET PO SCH (11:12)
[2017-12-11] MEDS: RILPIVIRINE HCL 25 MG TABLET PO SCH (11:12)
[2017-12-11] MEDS: CEFTAZIDIME PENTAHYDRATE 1 GM in DEXTROSE 5%-WATER - 100 ML IVPB SCH (11:21)
[2017-12-11] MEDS: CLOTRIMAZOLE/BETAMET DIPROP 15 GM TUBE TP SCH ×2 (11:30→22:02)
--- NOTE | 2017-12-11 13:14 | PN ---
Progress Note, Physician History of Present Illness: Pt seen and examined at bedside. He is awake and alert. He denies shortness of breath. - Current Medication List Current Medications: Active Medications Acetaminophen (Tylenol -) 650 mg PO Q6H PRN PRN Reason: PAIN LEVEL 1-5 Last Admin: 12/08/17 16:25 Dose: 650 mg Allopurinol (Zyloprim -) 100 mg PO DAILY [facility] Last Admin: 12/11/17 11:07 Dose: 100 mg Calcium Carbonate (Calcium Carbonate -) 650 mg PO DAILY [facility] Last Admin: 12/11/17 11:12 Dose: 650 mg Carvedilol (Coreg -) 6.25 mg PO BID [facility] Last Admin: 12/11/17 11:08 Dose: 6.25 mg Clotrimazole (Lotrisone Cream (Small Tube)) 1 applic TP BID [facility] Last Admin: 12/11/17 11:30 Dose: 1 applic Darunavir (Prezista -) 600 mg PO BID [facility] Last Admin: 12/11/17 11:11 Dose: 600 mg Ferrous Sulfate (Feosol -) 325 mg PO TIDCM [facility] Last Admin: 12/11/17 08:31 Dose: 325 mg Finasteride (Proscar -) 5 mg PO DAILY [facility] Last Admin: 12/11/17 11:10 Dose: 5 mg Furosemide (Lasix Injection -) 60 mg IVPUSH DAILY [facility] Last Admin: 12/11/17 11:08 Dose: 60 mg Hydralazine HCl (Apresoline -) 25 mg PO BID [facility] Last Admin: 12/11/17 11:07 Dose: 25 mg Ceftazidime 1 gm/ Dextrose 100 mls @ 200 mls/hr IVPB DAILY [facility]; Protocol Last Admin: 12/11/17 11:21 Dose: 200 mls/hr Insulin Aspart (Novolog Vial Sliding Scale -) 1 vial SQ ACHS [facility]; Protocol Last Admin: 12/11/17 11:29 Dose: Not Given Melatonin (Melatonin) 15 mg PO HS PRN PRN Reason: INSOMNIA Last Admin: 12/10/17 22:10 Dose: 15 mg Mupirocin (Bactroban 2% Ointment -) 1 applic TP TID [facility] Last Admin: 12/11/17 06:59 Dose: 1 applic Nifedipine (Procardia Xl -) 60 mg PO DAILY [facility] Last Admin: 12/11/17 11:10 Dose: 60 mg Raltegravir (Isentress -) 400 mg PO BID [facility] Last Admin: 12/11/17 11:11 Dose: 400 mg Ritonavir (Norvir -) 100 mg PO BID [facility] Last Admin: 12/11/17 11:10 Dose: 100 mg Sodium Bicarbonate (Sodium Bicarbonate -) 650 mg PO BID [facility] Last Admin: 12/11/17 11:09 Dose: 650 mg Sucralfate (Carafate Oral Suspension -) 1 gm PO QID [facility] Last Admin: 12/11/17 11:09 Dose: 1 gm Tamsulosin HCl (Flomax -) 0.4 mg PO BID [facility] Last Admin: 12/11/17 11:07 Dose: 0.4 mg - Objective Vital Signs: Vital Signs Temperature 98 F 12/11/17 10:00 Pulse Rate 72 12/11/17 10:00 Respiratory Rate 18 12/11/17 10:00 Blood Pressure 146/61 12/11/17 10:00 O2 Sat by Pulse Oximetry (%) 96 12/11/17 09:00 Constitutional: Yes: Calm Eyes: Yes: Conjunctiva Clear HENT: Yes: Atraumatic Cardiovascular: Yes: S1, S2 Respiratory: Yes: CTA Bilaterally Gastrointestinal: Yes: Soft Genitourinary: Yes: Lara Present Edema: Yes Edema: LLE: 1+, RLE: 1+ Neurological: Yes: Oriented Psychiatric: Yes: Oriented Labs: CBC, BMP 12/09/17 07:49 12/10/17 06:00 INR, PTT INR 1.28 (0.83-1.09) H 12/02/17 16:55 Problem List - Problems (1) Renal insufficiency Code(s): N28.9 - DISORDER OF KIDNEY AND URETER, UNSPECIFIED (2) Anemia Code(s): D64.9 - ANEMIA, UNSPECIFIED (3) CKD (chronic kidney disease) Code(s): N18.9 - CHRONIC KIDNEY DISEASE, UNSPECIFIED (4) CLL (chronic lymphocytic leukemia) Code(s): C91.90 - LYMPHOID LEUKEMIA, UNSPECIFIED NOT HAVING ACHIEVED REMISSION (5) HIV (human immunodeficiency virus infection) Code(s): B20 - HUMAN IMMUNODEFICIENCY VIRUS [HIV] DISEASE Assessment/Plan Current Medications Generic Name Dose Route Start Last Admin Trade Name Freq PRN Reason Stop Dose Admin Acetaminophen 650 mg 12/04/17 13:36 12/08/17 16:25 Tylenol - PO 650 mg Q6H PRN Administration PAIN LEVEL 1-5 Allopurinol 100 mg 12/03/17 10:00 12/11/17 11:07 Zyloprim - PO 100 mg DAILY [facility] Administration Calcium Carbonate 650 mg 12/07/17 16:00 12/11/17 11:12 Calcium Carbonate - PO 650 mg DAILY [facility] Administration Carvedilol 6.25 mg 12/03/17 10:00 12/11/17 11:08 Coreg - PO 6.25 mg BID [facility] Administration Clotrimazole 1 applic 12/07/17 13:30 12/11/17 11:30 Lotrisone Cream (Small Tube) TP 1 applic BID [facility] Administration Darunavir 600 mg 12/03/17 10:00 12/11/17 11:11 Prezista - PO 600 mg BID [facility] Administration Ferrous Sulfate 325 mg 12/06/17 17:30 12/11/17 08:31 Feosol - PO 325 mg TIDCM [facility] Administration Finasteride 5 mg 12/03/17 10:00 12/11/17 11:10 Proscar - PO 5 mg DAILY [facility] Administration Furosemide 60 mg 12/08/17 18:55 12/11/17 11:08 Lasix Injection - IVPUSH 60 mg DAILY [facility] Administration Hydralazine HCl 25 mg 12/03/17 10:00 12/11/17 11:07 Apresoline - PO 25 mg BID [facility] Administration Ceftazidime 1 gm/ Dextrose 100 mls @ 200 mls/hr 12/11/17 10:00 12/11/17 11:21 IVPB 200 mls/hr DAILY [facility] Administration Protocol Insulin Aspart 1 vial 12/03/17 07:00 12/11/17 11:29 Novolog Vial Sliding Scale - SQ Not Given ACHS [facility] Protocol Melatonin 15 mg 12/06/17 22:00 12/10/17 22:10 Melatonin PO 15 mg HS PRN Administration INSOMNIA Mupirocin 1 applic 12/06/17 15:00 12/11/17 06:59 Bactroban 2% Ointment - TP 1 applic TID [facility] Administration Nifedipine 60 mg 12/03/17 10:00 12/11/17 11:10 Procardia Xl - PO 60 mg DAILY [facility] Administration Raltegravir 400 mg 12/03/17 10:00 12/11/17 11:11 Isentress - PO 400 mg BID [facility] Administration Ritonavir 100 mg 12/03/17 10:00 12/11/17 11:10 Norvir - PO 100 mg BID [facility] Administration Sodium Bicarbonate 650 mg 12/03/17 10:00 12/11/17 11:09 Sodium Bicarbonate - PO 650 mg BID [facility] Administration Sucralfate 1 gm 12/07/17 22:00 12/11/17 11:09 Carafate Oral Suspension - PO 1 gm QID [facility] Administration Tamsulosin HCl 0.4 mg 12/03/17 10:00 12/11/17 11:07 Flomax - PO 0.4 mg BID [facility] Administration Impression 1. CKD 2. urinary retention 3. HIV 4. liver cirrhosis 5. Hep C 6. nephrolothiasis 7. DM 8. BPH 9. HTN 10. CLL 11. anemia 12. scrotal cellulitis Plan - check bmp - cont lasix - urology evaluation for retention - pt can have fistula placed as outpt - cont IV lasix - discussed plan with pt - cont iron supplements - will give procrit dose Dr Wells
[2017-12-11] MEDS ORDERED: EPOETIN ALFA 10,000 UNIT/1 ML VIAL SQ ONE (13:45)
[2017-12-11 16:49] LABS: HEMATOCRIT 28.7 % (35.4-49); LYMPH % 94.4 % (8-40); MCH 28.6 pg (25.7-33.7); MCHC 31.2 g/dl (32.0-35.9); MEAN CELL VOLUME 91.6 fl (80-96); MEAN PLT VOLUME 8.9 fl (7.5-11.1); MONO % 0.8 % (3.8-10.2); NEUT % 4.8 % (42.8-82.8); PLATELET COUNT 94 K/MM3 (134-434); RBC 3.14 M/mm3 (4.00-5.60); RDW 18.2 % (11.9-15.9)
[2017-12-11 16:53] LABS: WHITE BLOOD COUNT 34.6 K/mm3 (4.0-10.0)
--- NOTE | 2017-12-11 17:02 | DS ---
Physical Exam: SUBJECTIVE: Patient seen and examined OBJECTIVE: Vital Signs Period Temp Pulse Resp BP Sys/Ventura Pulse Ox Last 24 Hr 98 F-98.4 F 65-72 18-18 136-146/56-61 96-97 PHYSICAL EXAM GENERAL: The patient is awake, alert, and fully oriented, in no acute distress. HEAD: Normal with no signs of trauma. EYES: PERRL, extraocular movements intact, sclera anicteric, conjunctiva clear. ENT: Ears normal, nares patent, oropharynx clear without exudates, moist mucous membranes. NECK: Trachea midline, full range of motion, supple. LUNGS: Breath sounds equal, clear to auscultation bilaterally, no wheezes, no crackles, no accessory muscle use. HEART: Regular rate and rhythm, S1, S2 without murmur, rub or gallop. ABDOMEN: Soft, nontender, nondistended, normoactive bowel sounds, no guarding, no rebound, no hepatosplenomegaly, no masses. EXTREMITIES: 2+ pulses, warm, well-perfused, no edema. NEUROLOGICAL: Cranial nerves II through XII grossly intact. Normal speech, gait not observed. PSYCH: Normal mood, normal affect. SKIN: Warm, dry, normal turgor, no rashes or lesions noted. LABS Laboratory Results - last 24 hr 12/06/17 12/06/17 12/10/17 16:00 20:30 21:53 WBC RBC Hgb Hct MCV MCH MCHC RDW Plt Count MPV Absolute Neuts (auto) Neutrophils % Lymphocytes % Monocytes % Eosinophils % Basophils % Nucleated RBC % POC Glucometer 144 Stool H. pylori Ag Cancelled C. trachomatis (TRACY) Negative N. gonorrhoeae (TRACY) Negative 12/11/17 12/11/17 12/11/17 06:58 11:23 16:00 WBC 34.6 H* RBC 3.14 L Hgb 9.0 L Hct 28.7 L MCV 91.6 MCH 28.6 MCHC 31.2 L RDW 18.2 H Plt Count 94 L MPV 8.9 Absolute Neuts (auto) 1.7 Neutrophils % 4.8 L Lymphocytes % 94.4 H Monocytes % 0.8 L D Eosinophils % 0.0 D Basophils % 0.0 Nucleated RBC % 0 POC Glucometer 106 145 Stool H. pylori Ag C. trachomatis (TRACY) N. gonorrhoeae (TRACY) HOSPITAL COURSE: Date of Admission:12/02/17 Date of Discharge: 12/11/17 Discharge Summary Reason For Visit: HIV SEROPOSITIVITY, URINARY TRACT INFECTION, RENAL Current Active Problems Abnormal gallbladder x-ray (Acute) Sepsis (Acute) Stool guaiac positive (Acute) UTI (urinary tract infection) (Acute) Renal insufficiency (Chronic) Condition: Stable - Instructions Referrals: Justin Matos MD [Primary Care Provider] - - Home Medications Comprehensive Discharge Medication List: Ambulatory Orders Ritonavir [Norvir] 100 mg PO BID #0 tablet 01/07/13 Allopurinol [Zyloprim -] 100 mg PO DAILY 09/01/15 Carvedilol [Coreg -] 6.25 mg PO BID 09/01/15 Furosemide [Lasix -] 80 mg PO DAILY 09/01/15 Nifedipine [Nifedical Xl] 60 mg PO DAILY 09/01/15 Raltegravir [Isentress] 400 mg PO BID 09/01/15 Rilpivirine HCl [Edurant] 25 mg PO DAILY 09/01/15 Darunavir Ethanolate [Prezista -] 600 mg PO BID 07/09/16 Ranitidine [Zantac -] 150 mg PO DAILY 14 Days tablet 09/21/17 Tamsulosin HCl [Flomax -] 0.4 mg PO BID 14 Days cap.er.24h 09/21/17 Finasteride [Proscar -] 5 mg PO DAILY 11/05/17 Sitagliptin Phosphate [Januvia] 25 mg PO DAILY 11/05/17 Sodium Bicarbonate - 650 mg PO BID 11/05/17 hydrALAZINE HCL [Apresoline -] 25 mg PO BID tablet 11/13/17
--- NOTE | 2017-12-11 17:50 | PN ---
Physical Exam: SUBJECTIVE: Patient seen and examined at the bedside. Sitting up, eating lunch. in no acute distress. OBJECTIVE: for vein mapping today wbc 34, will repeat. Blood and urine cultures to be repeated. Vital Signs Period Temp Pulse Resp BP Sys/Ventura Pulse Ox Last 24 Hr 98 F-98.7 F 65-72 18-20 134-146/56-61 96-97 GENERAL: The patient is awake, alert, and fully oriented, in no acute distress. HEAD: Normal with no signs of trauma. EYES: PERRL, extraocular movements intact, sclera anicteric, conjunctiva clear. No ptosis. ENT: Ears normal, nares patent, oropharynx clear without exudates, moist mucous membranes. NECK: Trachea midline, full range of motion, supple. LUNGS: Breath sounds equal, clear to auscultation bilaterally, no wheezes HEART: Regular rate and rhythm ABDOMEN: Soft, nontender, nondistended, normoactive bowel sounds, no guarding, no rebound, no hepatosplenomegaly, no masses. EXTREMITIES: no edema. NEUROLOGICAL: Normal speech, gait not observed. PSYCH: Normal mood, normal affect. SKIN: Warm, dry, normal turgor, no rashes or lesions noted Laboratory Results - last 24 hr 12/06/17 12/06/17 12/10/17 16:00 20:30 21:53 WBC RBC Hgb Hct MCV MCH MCHC RDW Plt Count MPV Absolute Neuts (auto) Neutrophils % Lymphocytes % Monocytes % Eosinophils % Basophils % Nucleated RBC % POC Glucometer 144 Stool H. pylori Ag Cancelled C. trachomatis (TRACY) Negative N. gonorrhoeae (TRACY) Negative 12/11/17 12/11/17 12/11/17 06:58 11:23 16:00 WBC 34.6 H* RBC 3.14 L Hgb 9.0 L Hct 28.7 L MCV 91.6 MCH 28.6 MCHC 31.2 L RDW 18.2 H Plt Count 94 L MPV 8.9 Absolute Neuts (auto) 1.7 Neutrophils % 4.8 L Lymphocytes % 94.4 H Monocytes % 0.8 L D Eosinophils % 0.0 D Basophils % 0.0 Nucleated RBC % 0 POC Glucometer 106 145 Stool H. pylori Ag C. trachomatis (TRACY) N. gonorrhoeae (TRACY) 12/11/17 16:49 WBC RBC Hgb Hct MCV MCH MCHC RDW Plt Count MPV Absolute Neuts (auto) Neutrophils % Lymphocytes % Monocytes % Eosinophils % Basophils % Nucleated RBC % POC Glucometer 141 Stool H. pylori Ag C. trachomatis (TRACY) N. gonorrhoeae (TRACY) Active Medications Generic Name Dose Route Start Last Admin Trade Name Freq PRN Reason Stop Dose Admin Acetaminophen 650 mg 12/04/17 13:36 12/08/17 16:25 Tylenol - PO 650 mg Q6H PRN Administration PAIN LEVEL 1-5 Allopurinol 100 mg 12/03/17 10:00 12/11/17 11:07 Zyloprim - PO 100 mg DAILY LIDIA Administration Calcium Carbonate 650 mg 12/07/17 16:00 12/11/17 11:12 Calcium Carbonate - PO 650 mg DAILY LIDIA Administration Carvedilol 6.25 mg 12/03/17 10:00 12/11/17 11:08 Coreg - PO 6.25 mg BID LIDIA Administration Clotrimazole 1 applic 12/07/17 13:30 12/11/17 11:30 Lotrisone Cream (Small Tube) TP 1 applic BID LIDIA Administration Darunavir 600 mg 12/03/17 10:00 12/11/17 11:11 Prezista - PO 600 mg BID LIDIA Administration Ferrous Sulfate 325 mg 12/06/17 17:30 12/11/17 17:36 Feosol - PO 325 mg TIDCM LIDIA Administration Finasteride 5 mg 12/03/17 10:00 12/11/17 11:10 Proscar - PO 5 mg DAILY LIDIA Administration Furosemide 60 mg 12/12/17 10:00 Lasix - PO DAILY LIDIA Hydralazine HCl 25 mg 12/03/17 10:00 12/11/17 11:07 Apresoline - PO 25 mg BID LIDIA Administration Ceftazidime 1 gm/ Dextrose 100 mls @ 200 mls/hr 12/11/17 10:00 12/11/17 11:21 IVPB 200 mls/hr DAILY LIDIA Administration Protocol Insulin Aspart 1 vial 12/03/17 07:00 12/11/17 16:51 Novolog Vial Sliding Scale - SQ Not Given ACHS LIDIA Protocol Melatonin 15 mg 12/06/17 22:00 12/10/17 22:10 Melatonin PO 15 mg HS PRN Administration INSOMNIA Mupirocin 1 applic 12/06/17 15:00 12/11/17 13:43 Bactroban 2% Ointment - TP 1 applic TID LIDIA Administration Nifedipine 60 mg 12/03/17 10:00 12/11/17 11:10 Procardia Xl - PO 60 mg DAILY LIDIA Administration Raltegravir 400 mg 12/03/17 10:00 12/11/17 11:11 Isentress - PO 400 mg BID LIDIA Administration Ritonavir 100 mg 12/03/17 10:00 12/11/17 11:10 Norvir - PO 100 mg BID LIDIA Administration Sodium Bicarbonate 650 mg 12/03/17 10:00 12/11/17 11:09 Sodium Bicarbonate - PO 650 mg BID LIDIA Administration Sucralfate 1 gm 12/07/17 22:00 12/11/17 17:34 Carafate Oral Suspension - PO 1 gm QID LIDIA Administration Tamsulosin HCl 0.4 mg 12/03/17 10:00 12/11/17 11:07 Flomax - PO 0.4 mg BID LIDIA Administration ASSESSMENT/PLAN: Patient is a 67 year old male with a significant past medical history of HTN, DM , HIV+, CLL, cirrhosis, CKD, chronic anemia, BPH, Hep C (s/p Harvoni tx). He presents to the ED on 12/02/2017 for fever, generalized weakness, scrotal and penile edema with swelling. Patient reports that he follows up with his urologist regularly and had an appointment to have a cystoscopy but he was in too much pain and came to the hospital for treatment. ------ Penile shaft cellulitis CKD Hx of Pseudomonas UTI CLL HIV+ ------ ID: Penile shaft cellulitis. Treated with Ceftazidme x 10 days. Leukocytosis. WBC elevated at 34 with repeat labs (in the setting of CLL with a baseline in the 20s WBC). Will reculture, he remains afebrile. Repeat CBC tonight. HIV+. On triple anti viral therapy. Renal CKD: Creat. 3.8. For vein mapping today. To follow up with nephrology for possible penitentiary access for HD. Continue lasix 60mg daily. Oncology: CLL. Treated at [facility]. Outpatient follow up. Card: Hypertension. Controlled on coreq, hydrazine. Monitor BP. CAD: : BPH Urinary Retention. Patient with a chronic ortiz catheter. Ortiz placed 3 months prior for retention. Patient to follow up with outpatient. On Flomax. discharge home with ortiz, outpatient followup with Dr. Loomis for possible cystoscopy. Hematology: Chronic anemia. hmg/hct stable. Endocrine: On SS, Novolog fen monitor electrolyes renal diet tolerating PO prophy SCDs Visit type - Emergency Visit Emergency Visit: Yes ED Registration Date: 12/02/17 Care time: The patient presented to the Emergency Department on the above date and was hospitalized for further evaluation of their emergent condition. - New Patient This patient is new to me today: Yes Date on this admission: 12/11/17 - Critical Care Critical Care patient: No - Discharge Referral Referred to [facility] Med P.C.: No
[2017-12-11 17:52] LABS: ALK PHOS 76 U/L (45-117); ANION GAP 8 MMOL/L (8-16); BILIRUBIN,TOTAL 0.2 mg/dL (0.2-1); BLOOD UREA NITROGEN 79 mg/dL (7-18); CALCIUM 8.3 mg/dL (8.5-10.1); CHLORIDE 111 mmol/L (98-107); CO2 24 mmol/L (21-32); CREATININE 3.8 mg/dL (0.55-1.3); GLUCOSE,RANDOM 129 mg/dL (74-106); POTASSIUM 3.8 mmol/L (3.5-5.1); SGOT/AST 18 U/L (15-37); SGPT/ALT 14 U/L (13-61); SODIUM 143 mmol/L (136-145); TOT PROT 5.7 g/dl (6.4-8.2)
[2017-12-11 18:02] LABS: PLATELET ESTIMATE DECREASED
[2017-12-11 18:06] LABS: URINE APPEARANCE SLCLOUDY; URINE BILIRUBIN NEGATIVE (<2.0 mg/dL); URINE COLOR LTYELLOW; URINE GLUCOSE (UA) NEGATIVE (NEGATIVE); URINE KETONE NEGATIVE (NEGATIVE); URINE LEUK ESTERASE NEGATIVE (NEGATIVE); URINE NITRITE NEGATIVE (NEGATIVE); URINE PROTEIN 2+ (NEGATIVE); URINE UROBILINOGEN NEGATIVE mg/dL (0.2-1.0)
[2017-12-11 18:12] LABS: EPI CELLS RARE /HPF (FEW); URINE MUCUS RARE; YEAST RARE
[2017-12-11] MEDS ORDERED: FUROSEMIDE 40 MG/4 ML INJECTABLE VIAL IVPUSH ONE (18:12)
[2017-12-11 19:44] LABS: EOS % 0.2 % (0-4.5); HEMATOCRIT 31.3 % (35.4-49); HEMOGLOBIN 9.8 GM/dL (11.7-16.9); LYMPH % 94.7 % (8-40); MCH 28.6 pg (25.7-33.7); MCHC 31.2 g/dl (32.0-35.9); MEAN CELL VOLUME 91.6 fl (80-96); MEAN PLT VOLUME 9.1 fl (7.5-11.1); MONO % 0.7 % (3.8-10.2); NEUT % 4.4 % (42.8-82.8); PLATELET COUNT 122 K/MM3 (134-434); RBC 3.42 M/mm3 (4.00-5.60); RDW 18.4 % (11.9-15.9)
[2017-12-11 19:47] LABS: WHITE BLOOD COUNT 47.1 K/mm3 (4.0-10.0)
[2017-12-11 20:56] LABS: PLATELET ESTIMATE SLT DECREASE; SMUDGE CELLS FEW
[2017-12-11] MEDS: MELATONIN 5 MG TABLETS PO PRN (22:01)
[2017-12-12] MEDS: INSULIN SLIDING SCALE (NOVOLOG) 1 VIAL SQ SCH ×3 (06:46→17:36)
[2017-12-12] MEDS: MUPIROCIN 2% TOPICAL OINTMENT 22 GM TUBE TP SCH ×2 (06:46→13:12)
[2017-12-12 07:11] LABS: HEMATOCRIT 27.4 % (35.4-49); HEMOGLOBIN 8.4 GM/dL (11.7-16.9); LYMPH % 93.6 % (8-40); MCH 28.4 pg (25.7-33.7); MCHC 30.8 g/dl (32.0-35.9); MEAN CELL VOLUME 92.2 fl (80-96); MEAN PLT VOLUME 8.3 fl (7.5-11.1); MONO % 0.7 % (3.8-10.2); NEUT % 5.7 % (42.8-82.8); PLATELET COUNT 78 K/MM3 (134-434); RBC 2.97 M/mm3 (4.00-5.60); RDW 18.2 % (11.9-15.9); WHITE BLOOD COUNT 32.4 K/mm3 (4.0-10.0)
[2017-12-12] MEDS ORDERED: INSULIN (NOVOLOG) ASPART 100 UNITS/ML 10ML VIAL ONE (07:11)
[2017-12-12 07:35] LABS: ALK PHOS 72 U/L (45-117); ANION GAP 10 MMOL/L (8-16); BILIRUBIN,TOTAL 0.3 mg/dL (0.2-1); BLOOD UREA NITROGEN 78 mg/dL (7-18); CALCIUM 8.1 mg/dL (8.5-10.1); CHLORIDE 113 mmol/L (98-107); CO2 23 mmol/L (21-32); CREATININE 3.5 mg/dL (0.55-1.3); GLUCOSE,RANDOM 95 mg/dL (74-106); MAGNESIUM 2.3 mg/dL (1.8-2.4); SGOT/AST 15 U/L (15-37); SGPT/ALT 14 U/L (13-61); SODIUM 145 mmol/L (136-145); TOT PROT 5.5 g/dl (6.4-8.2)
[2017-12-12] MEDS ORDERED: PT OWN MED DRAWER 7, Y5N ONE (08:53)
[2017-12-12] MEDS: FERROUS SO4 325 MG TABLET (FP) PO SCH ×3 (08:57→17:35)
[2017-12-12] MEDS: hydrALAZINE HCL 25 MG TABLET (FP) PO SCH (09:17)
[2017-12-12] MEDS: SODIUM BICARBONATE 650 MG TABLET PO SCH (09:17)
[2017-12-12] MEDS: ALLOPURINOL 100 MG TABLET (FP) PO SCH (09:17)
[2017-12-12] MEDS: FINASTERIDE 5 MG TABLET (FP) PO SCH (09:17)
[2017-12-12] MEDS: TAMSULOSIN HCL 0.4 MG CAP PO SCH (09:18)
[2017-12-12] MEDS: SUCRALFATE 1 GM/10 ML UNIT DOSE CUPS PO SCH ×3 (09:19→17:35)
[2017-12-12] MEDS: CARVEDILOL 6.25 MG TABLET (FP) PO SCH (09:19)
[2017-12-12] MEDS: RILPIVIRINE HCL 25 MG TABLET PO SCH (09:20)
[2017-12-12] MEDS: RITONAVIR 100 MG TABLET PO SCH (09:21)
[2017-12-12] MEDS: RALTEGRAVIR POTASSIUM 400 MG TAB PO SCH (09:22)
[2017-12-12] MEDS: CEFTAZIDIME PENTAHYDRATE 1 GM in DEXTROSE 5%-WATER - 100 ML IVPB SCH (09:22)
[2017-12-12] MEDS: DARUNAVIR ETHANOLATE 600 MG TAB PO SCH (09:22)
[2017-12-12] MEDS: NIFEdipine E.R 60 MG TABLET (UD) PO SCH (09:23)
[2017-12-12] MEDS: CLOTRIMAZOLE/BETAMET DIPROP 15 GM TUBE TP SCH (09:24)
[2017-12-12] MEDS: CALCIUM CARBONATE 650 MG TABLET PO SCH (09:25)
[2017-12-12] MEDS ORDERED: FUROSEMIDE 40 MG TABLET (FP) PO SCH (10:00)
[2017-12-12 10:32] LABS: ANISOCYTOSIS 2+; MACROCYTOSIS 0; PLATELET ESTIMATE DECREASED; TEAR DROP CELLS 1+
--- NOTE | 2017-12-12 12:33 | PN ---
Progress Note, Physician Chief Complaint: Awake , alert OOB in chair No c/o penile, scrotal pain Afebrile WBC remains elevated (in setting of CLL) BC one anaerobic bottle GPR [place] = contaminant - Current Medication List Current Medications: Active Medications Acetaminophen (Tylenol -) 650 mg PO Q6H PRN PRN Reason: PAIN LEVEL 1-5 Last Admin: 12/08/17 16:25 Dose: 650 mg Allopurinol (Zyloprim -) 100 mg PO DAILY [facility] Last Admin: 12/12/17 09:17 Dose: 100 mg Calcium Carbonate (Calcium Carbonate -) 650 mg PO DAILY [facility] Last Admin: 12/12/17 09:25 Dose: 650 mg Carvedilol (Coreg -) 6.25 mg PO BID [facility] Last Admin: 12/12/17 09:19 Dose: 6.25 mg Clotrimazole (Lotrisone Cream (Small Tube)) 1 applic TP BID [facility] Last Admin: 12/12/17 09:24 Dose: 1 applic Darunavir (Prezista -) 600 mg PO BID [facility] Last Admin: 12/12/17 09:22 Dose: 600 mg Ferrous Sulfate (Feosol -) 325 mg PO TIDCM [facility] Last Admin: 12/12/17 08:57 Dose: 325 mg Finasteride (Proscar -) 5 mg PO DAILY [facility] Last Admin: 12/12/17 09:17 Dose: 5 mg Furosemide (Lasix -) 60 mg PO DAILY [facility] Last Admin: 12/12/17 09:17 Dose: 60 mg Hydralazine HCl (Apresoline -) 25 mg PO BID [facility] Last Admin: 12/12/17 09:17 Dose: 25 mg Insulin Aspart (Novolog Vial Sliding Scale -) 1 vial SQ [facility]; Protocol Last Admin: 12/12/17 12:16 Dose: Not Given Melatonin (Melatonin) 15 mg PO HS PRN PRN Reason: INSOMNIA Last Admin: 12/11/17 22:01 Dose: 15 mg Mupirocin (Bactroban 2% Ointment -) 1 applic TP TID [facility] Last Admin: 12/12/17 06:46 Dose: 1 applic Nifedipine (Procardia Xl -) 60 mg PO DAILY [facility] Last Admin: 12/12/17 09:23 Dose: 60 mg Raltegravir (Isentress -) 400 mg PO BID [facility] Last Admin: 12/12/17 09:22 Dose: 400 mg Ritonavir (Norvir -) 100 mg PO BID [facility] Last Admin: 12/12/17 09:21 Dose: 100 mg Sodium Bicarbonate (Sodium Bicarbonate -) 650 mg PO BID [facility] Last Admin: 12/12/17 09:17 Dose: 650 mg Sucralfate (Carafate Oral Suspension -) 1 gm PO QID [facility] Last Admin: 12/12/17 09:19 Dose: 1 gm Tamsulosin HCl (Flomax -) 0.4 mg PO BID [facility] Last Admin: 12/12/17 09:18 Dose: 0.4 mg - Objective Vital Signs: Vital Signs Temperature 98.1 F 12/12/17 06:23 Pulse Rate 70 12/12/17 06:23 Respiratory Rate 29 H 12/12/17 06:23 Blood Pressure 141/55 L 12/12/17 06:23 O2 Sat by Pulse Oximetry (%) 95 12/11/17 21:00 Constitutional: Yes: No Distress Cardiovascular: Yes: Regular Rate and Rhythm, S1, S2 Respiratory: Yes: CTA Bilaterally Gastrointestinal: Yes: Normal Bowel Sounds, Soft. No: Tenderness Genitourinary: Yes: Other (decreased penile edema No scrotal tenderness) Labs: CBC, BMP 12/12/17 06:10 12/12/17 06:10 INR, PTT INR 1.28 (0.83-1.09) H 12/02/17 16:55 Assessment/Plan Penile shaft cellulitis - improved CKD Hx Pseudomonas UTI CLL HIV + BC = contaminant Repeat BC no growth D/C antibiotics Outpatient urology, renal follow up
--- NOTE | 2017-12-12 13:05 | DS ---
Physical Exam: SUBJECTIVE: Patient seen and examined at the bedside. Feels well, wants to go home. patient agreeing to follow up with his oncologist on discharge. OBJECTIVE: patient to be discharged home with ortiz and close follow up. advised patient that ortiz should be changed monthly at a minimum. Vital Signs Period Temp Pulse Resp BP Sys/Ventura Pulse Ox Last 24 Hr 97.8 F-98.7 F 63-70 18-29 134-146/55-60 95 PHYSICAL EXAM GENERAL: The patient is awake, alert, and fully oriented, in no acute distress. HEAD: Normal with no signs of trauma. EYES: PERRL, extraocular movements intact, sclera anicteric, conjunctiva clear. No ptosis. ENT: Ears normal, nares patent, oropharynx clear without exudates, moist mucous membranes. NECK: Trachea midline, full range of motion, supple. LUNGS: Breath sounds equal, clear to auscultation bilaterally, no wheezes HEART: Regular rate and rhythm ABDOMEN: Soft, nontender, nondistended, normoactive bowel sounds, no guarding, no rebound, no hepatosplenomegaly, no masses. EXTREMITIES: no edema. NEUROLOGICAL: Normal speech, gait not observed. PSYCH: Normal mood, normal affect. SKIN: Warm, dry, normal turgor, no rashes or lesions noted LABS Laboratory Results - last 24 hr 12/06/17 12/11/17 12/11/17 16:00 16:00 16:00 WBC 34.6 H* RBC 3.14 L Hgb 9.0 L Hct 28.7 L MCV 91.6 MCH 28.6 MCHC 31.2 L RDW 18.2 H Plt Count 94 L MPV 8.9 Absolute Neuts (auto) 1.7 Neutrophils % 4.8 L Neutrophils % (Manual) 2.0 L Band Neutrophils % 0.0 Lymphocytes % 94.4 H Lymphocytes % (Manual) 98.0 H* Monocytes % 0.8 L D Monocytes % (Manual) 0 L D Eosinophils % 0.0 D Eosinophils % (Manual) 0.0 Basophils % 0.0 Basophils % (Manual) 0.0 Myelocytes % (Man) Promyelocytes % (Man) Blast Cells % (Manual) Nucleated RBC % 0 Metamyelocytes Smudge Cells Hypochromia Platelet Estimate Decreased Platelet Comment No clumping noted Polychromasia Poikilocytosis Anisocytosis Microcytosis Macrocytosis Tear Drop Cells Sodium 143 Potassium 3.8 Chloride 111 H Carbon Dioxide 24 Anion Gap 8 BUN 79 H Creatinine 3.8 H Creat Clearance w eGFR 16.07 POC Glucometer Random Glucose 129 H Calcium 8.3 L Magnesium Total Bilirubin 0.2 AST 18 ALT 14 Alkaline Phosphatase 76 Total Protein 5.7 L Albumin 3.0 L Urine Color Urine Appearance Urine pH Ur Specific [place] Urine Protein Urine Glucose (UA) Urine Ketones Urine Blood Urine Nitrite Urine Bilirubin Urine Urobilinogen Ur Leukocyte Esterase Urine WBC (Auto) Urine RBC (Auto) Ur Epithelial Cells Urine Mucus Urine Yeast C. trachomatis (TRACY) Negative N. gonorrhoeae (TRACY) Negative 12/11/17 12/11/17 12/11/17 16:49 17:10 19:00 WBC 47.1 H* RBC 3.42 L Hgb 9.8 L Hct 31.3 L MCV 91.6 MCH 28.6 MCHC 31.2 L RDW 18.4 H Plt Count 122 L D MPV 9.1 Absolute Neuts (auto) 2.1 Neutrophils % 4.4 L Neutrophils % (Manual) 5.0 L D Band Neutrophils % 0.0 Lymphocytes % 94.7 H Lymphocytes % (Manual) 92.0 H* Monocytes % 0.7 L Monocytes % (Manual) 3 L D Eosinophils % 0.2 D Eosinophils % (Manual) 0.0 Basophils % 0.0 Basophils % (Manual) 0.0 Myelocytes % (Man) Promyelocytes % (Man) Blast Cells % (Manual) Nucleated RBC % 0 Metamyelocytes Smudge Cells Few Hypochromia Platelet Estimate Slt decrease Platelet Comment No clumping noted Polychromasia Poikilocytosis Anisocytosis Microcytosis Macrocytosis Tear Drop Cells Sodium Potassium Chloride Carbon Dioxide Anion Gap BUN Creatinine Creat Clearance w eGFR POC Glucometer 141 Random Glucose Calcium Magnesium Total Bilirubin AST ALT Alkaline Phosphatase Total Protein Albumin Urine Color Ltyellow Urine Appearance Slcloudy Urine pH 5.0 Ur Specific [place] 1.011 Urine Protein 2+ H Urine Glucose (UA) Negative Urine Ketones Negative Urine Blood 1+ H Urine Nitrite Negative Urine Bilirubin Negative Urine Urobilinogen Negative Ur Leukocyte Esterase Negative Urine WBC (Auto) 1 Urine RBC (Auto) 2 Ur Epithelial Cells Rare Urine Mucus Rare Urine Yeast Rare C. trachomatis (TRACY) N. gonorrhoeae (TRACY) 12/11/17 12/12/17 12/12/17 21:59 06:10 06:10 WBC 32.4 H* RBC 2.97 L Hgb 8.4 L Hct 27.4 L MCV 92.2 MCH 28.4 MCHC 30.8 L RDW 18.2 H Plt Count 78 L D MPV 8.3 Absolute Neuts (auto) 1.9 Neutrophils % 5.7 L D Neutrophils % (Manual) 1.1 L Band Neutrophils % 0.0 Lymphocytes % 93.6 H Lymphocytes % (Manual) 93.6 H* Monocytes % 0.7 L Monocytes % (Manual) 5 Eosinophils % 0.0 D Eosinophils % (Manual) 0.0 Basophils % 0.0 Basophils % (Manual) 0.0 Myelocytes % (Man) 0 Promyelocytes % (Man) 0 Blast Cells % (Manual) 0 D Nucleated RBC % 0 Metamyelocytes 0 Smudge Cells Hypochromia 0 Platelet Estimate Decreased Platelet Comment Polychromasia 1+ Poikilocytosis 1+ Anisocytosis 2+ Microcytosis 2+ Macrocytosis 0 Tear Drop Cells 1+ Sodium 145 Potassium 4.0 Chloride 113 H Carbon Dioxide 23 Anion Gap 10 BUN 78 H Creatinine 3.5 H Creat Clearance w eGFR 17.67 POC Glucometer 154 Random Glucose 95 Calcium 8.1 L Magnesium 2.3 Total Bilirubin 0.3 AST 15 ALT 14 Alkaline Phosphatase 72 Total Protein 5.5 L Albumin 3.0 L Urine Color Urine Appearance Urine pH Ur Specific [place] Urine Protein Urine Glucose (UA) Urine Ketones Urine Blood Urine Nitrite Urine Bilirubin Urine Urobilinogen Ur Leukocyte Esterase Urine WBC (Auto) Urine RBC (Auto) Ur Epithelial Cells Urine Mucus Urine Yeast C. trachomatis (TRACY) N. gonorrhoeae (TRACY) 12/12/17 12/12/17 06:45 12:02 WBC RBC Hgb Hct MCV MCH MCHC RDW Plt Count MPV Absolute Neuts (auto) Neutrophils % Neutrophils % (Manual) Band Neutrophils % Lymphocytes % Lymphocytes % (Manual) Monocytes % Monocytes % (Manual) Eosinophils % Eosinophils % (Manual) Basophils % Basophils % (Manual) Myelocytes % (Man) Promyelocytes % (Man) Blast Cells % (Manual) Nucleated RBC % Metamyelocytes Smudge Cells Hypochromia Platelet Estimate Platelet Comment Polychromasia Poikilocytosis Anisocytosis Microcytosis Macrocytosis Tear Drop Cells Sodium Potassium Chloride Carbon Dioxide Anion Gap BUN Creatinine Creat Clearance w eGFR POC Glucometer 110 109 Random Glucose Calcium Magnesium Total Bilirubin AST ALT Alkaline Phosphatase Total Protein Albumin Urine Color Urine Appearance Urine pH Ur Specific [place] Urine Protein Urine Glucose (UA) Urine Ketones Urine Blood Urine Nitrite Urine Bilirubin Urine Urobilinogen Ur Leukocyte Esterase Urine WBC (Auto) Urine RBC (Auto) Ur Epithelial Cells Urine Mucus Urine Yeast C. trachomatis (TRACY) N. gonorrhoeae (TRACY) HOSPITAL COURSE: Patient is a 67 year old male with a significant past medical history of HTN, DM , HIV+, CLL, cirrhosis, CKD, chronic anemia, BPH, Hep C (s/p Harvoni tx). He presents to the ED on 12/02/2017 for fever, generalized weakness, scrotal and penile edema with swelling. Patient reports that he follows up with his urologist regularly and had an appointment to have a cystoscopy but he was in too much pain and came to the hospital for treatment. ------ Penile shaft cellulitis CKD Hx of Pseudomonas UTI CLL HIV+ ------ ID: Penile shaft cellulitis: Treated with Ceftazidme x 10 days. No further antibiotics. Leukocytosis. WBC elevated at 34 with repeat labs (in the setting of CLL). Has been recultured, he remains afebrile. HIV+: On triple anti viral therapy. Renal CKD: Creat. 3.8. Had vein mapping done 12/11/17. To follow up with nephrology/vascular surgery for possible fdc access for HD. Patient to call Dr. Rodríguez and Dr. Wells for appointment. Continue lasix 60mg daily. Oncology: CLL. Treated at [facility]. Outpatient follow up. Patient in agreement to see his oncologist. Followed by oncology here. Card: Hypertension. Controlled on coreq, hydrazine. Monitor BP. : BPH/Urinary Retention. Patient to be discharged with ortiz catheter. Patient has private urologist, but has decided to followup with Dr. Loomis for possible cystoscopy. Hematology: Chronic anemia. hmg/hct stable. Discharge home with VNA services. full code. Date of Admission:12/02/17 Date of Discharge: 12/12/17 Minutes to complete discharge: 60 Discharge Summary Reason For Visit: HIV SEROPOSITIVITY, URINARY TRACT INFECTION, RENAL Current Active Problems Abnormal gallbladder x-ray (Acute) Sepsis (Acute) Stool guaiac positive (Acute) UTI (urinary tract infection) (Acute) Renal insufficiency (Chronic) Condition: Stable - Instructions Diet, Activity, Other Instructions: Mr. Avila: You were admitted to [facility] on 12/02/2017 for fever, generalized weakness, scrotal and penile edema and penile infection. Here are our recommendations: Infection: Penile shaft cellulitis/infection. You were reated with Ceftazidme for 10 days. No further antibiotics. Your WBC was elevated at 34 on discharge. Please follow up with your oncologist at [facility] for further workup/and a complete checkup. Renal CKD: Your creatinine is elevated at 3.8 and we did a vein mapping for possible fistula placement for start of hemodialysis. Please follow up with Dr. 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 Continue taking the lasix 60mg daily. Oncology: Please follow up with your oncologist. You will need to have you blood drawn and monitored. Please make appointment. : Urinary Retention. Please have your ortiz catheter replaced once per month or as designated by your urologist. You will be discharged home with a ortiz. Please followup with Dr. Loomis for possible cystoscopy. You have a follow up appointment with Dr. Beltran on December 18 at 11a.m. Please call and confirm appointment. Please bring your discharge papers and your insurance card. I am available for questions. Valerie Duke [employer] [facility] [phone] Referrals: Justin Matos MD [Primary Care Provider] - Alen Spencer MD [Staff Physician] - (You have an appointment with Dr. delfina angel. Sunday 11a.m. december 18. ) Jose Huddleston MD., [Staff Physician] - 1 Week Mamadou Rodríguez MD [Staff Physician] - 1 Week (please call Dr. Rodríguez to schedule your fistula placement. He is the vascular surgeon. ) Jorge A Loomis MD [Staff Physician] - 1 Week Disposition: VNS/HOME HEALTH CARE - Home Medications Comprehensive Discharge Medication List: Ambulatory Orders Ritonavir [Norvir] 100 mg PO BID #0 tablet 01/07/13 Allopurinol [Zyloprim -] 100 mg PO DAILY 09/01/15 Carvedilol [Coreg -] 6.25 mg PO BID 09/01/15 Furosemide [Lasix -] 80 mg PO DAILY 09/01/15 Nifedipine [Nifedical Xl] 60 mg PO DAILY 09/01/15 Raltegravir [Isentress] 400 mg PO BID 09/01/15 Rilpivirine HCl [Edurant] 25 mg PO DAILY 09/01/15 Darunavir Ethanolate [Prezista -] 600 mg PO BID 07/09/16 Ranitidine [Zantac -] 150 mg PO DAILY 14 Days tablet 09/21/17 Tamsulosin HCl [Flomax -] 0.4 mg PO BID 14 Days cap.er.24h 09/21/17 Finasteride [Proscar -] 5 mg PO DAILY 11/05/17 Sitagliptin Phosphate [Januvia] 25 mg PO DAILY 11/05/17 Sodium Bicarbonate - 650 mg PO BID 11/05/17 hydrALAZINE HCL [Apresoline -] 25 mg PO BID tablet 11/13/17 This patient is new to me today: No Emergency Visit: Yes ED Registration Date: 12/02/17 Care time: The patient presented to the Emergency Department on the above date and was hospitalized for further evaluation of their emergent condition. Critical Care patient: No - Discharge Referral Referred to [facility] Med P.C.: No
--- NOTE | 2017-12-12 13:05 | PN ---
Physical Exam: SUBJECTIVE: Patient seen and examined OBJECTIVE: Vital Signs Period Temp Pulse Resp BP Sys/Ventura Pulse Ox Last 24 Hr 97.8 F-98.7 F 63-70 18-29 134-146/55-60 95 GENERAL: The patient is awake, alert, and fully oriented, in no acute distress. HEAD: Normal with no signs of trauma. EYES: PERRL, extraocular movements intact, sclera anicteric, conjunctiva clear. No ptosis. ENT: Ears normal, nares patent, oropharynx clear without exudates, moist mucous membranes. NECK: Trachea midline, full range of motion, supple. LUNGS: Breath sounds equal, clear to auscultation bilaterally, no wheezes, no crackles, no accessory muscle use. HEART: Regular rate and rhythm, S1, S2 without murmur, rub or gallop. ABDOMEN: Soft, nontender, nondistended, normoactive bowel sounds, no guarding, no rebound, no hepatosplenomegaly, no masses. EXTREMITIES: 2+ pulses, warm, well-perfused, no edema. NEUROLOGICAL: Cranial nerves II through XII grossly intact. Normal speech, gait not observed. PSYCH: Normal mood, normal affect. SKIN: Warm, dry, normal turgor, no rashes or lesions noted Laboratory Results - last 24 hr 12/06/17 12/11/17 12/11/17 16:00 16:00 16:00 WBC 34.6 H* RBC 3.14 L Hgb 9.0 L Hct 28.7 L MCV 91.6 MCH 28.6 MCHC 31.2 L RDW 18.2 H Plt Count 94 L MPV 8.9 Absolute Neuts (auto) 1.7 Neutrophils % 4.8 L Neutrophils % (Manual) 2.0 L Band Neutrophils % 0.0 Lymphocytes % 94.4 H Lymphocytes % (Manual) 98.0 H* Monocytes % 0.8 L D Monocytes % (Manual) 0 L D Eosinophils % 0.0 D Eosinophils % (Manual) 0.0 Basophils % 0.0 Basophils % (Manual) 0.0 Myelocytes % (Man) Promyelocytes % (Man) Blast Cells % (Manual) Nucleated RBC % 0 Metamyelocytes Smudge Cells Hypochromia Platelet Estimate Decreased Platelet Comment No clumping noted Polychromasia Poikilocytosis Anisocytosis Microcytosis Macrocytosis Tear Drop Cells Sodium 143 Potassium 3.8 Chloride 111 H Carbon Dioxide 24 Anion Gap 8 BUN 79 H Creatinine 3.8 H Creat Clearance w eGFR 16.07 POC Glucometer Random Glucose 129 H Calcium 8.3 L Magnesium Total Bilirubin 0.2 AST 18 ALT 14 Alkaline Phosphatase 76 Total Protein 5.7 L Albumin 3.0 L Urine Color Urine Appearance Urine pH Ur Specific [place] Urine Protein Urine Glucose (UA) Urine Ketones Urine Blood Urine Nitrite Urine Bilirubin Urine Urobilinogen Ur Leukocyte Esterase Urine WBC (Auto) Urine RBC (Auto) Ur Epithelial Cells Urine Mucus Urine Yeast C. trachomatis (TRACY) Negative N. gonorrhoeae (TRACY) Negative 12/11/17 12/11/17 12/11/17 16:49 17:10 19:00 WBC 47.1 H* RBC 3.42 L Hgb 9.8 L Hct 31.3 L MCV 91.6 MCH 28.6 MCHC 31.2 L RDW 18.4 H Plt Count 122 L D MPV 9.1 Absolute Neuts (auto) 2.1 Neutrophils % 4.4 L Neutrophils % (Manual) 5.0 L D Band Neutrophils % 0.0 Lymphocytes % 94.7 H Lymphocytes % (Manual) 92.0 H* Monocytes % 0.7 L Monocytes % (Manual) 3 L D Eosinophils % 0.2 D Eosinophils % (Manual) 0.0 Basophils % 0.0 Basophils % (Manual) 0.0 Myelocytes % (Man) Promyelocytes % (Man) Blast Cells % (Manual) Nucleated RBC % 0 Metamyelocytes Smudge Cells Few Hypochromia Platelet Estimate Slt decrease Platelet Comment No clumping noted Polychromasia Poikilocytosis Anisocytosis Microcytosis Macrocytosis Tear Drop Cells Sodium Potassium Chloride Carbon Dioxide Anion Gap BUN Creatinine Creat Clearance w eGFR POC Glucometer 141 Random Glucose Calcium Magnesium Total Bilirubin AST ALT Alkaline Phosphatase Total Protein Albumin Urine Color Ltyellow Urine Appearance Slcloudy Urine pH 5.0 Ur Specific [place] 1.011 Urine Protein 2+ H Urine Glucose (UA) Negative Urine Ketones Negative Urine Blood 1+ H Urine Nitrite Negative Urine Bilirubin Negative Urine Urobilinogen Negative Ur Leukocyte Esterase Negative Urine WBC (Auto) 1 Urine RBC (Auto) 2 Ur Epithelial Cells Rare Urine Mucus Rare Urine Yeast Rare C. trachomatis (TRACY) N. gonorrhoeae (TRACY) 12/11/17 12/12/17 12/12/17 21:59 06:10 06:10 WBC 32.4 H* RBC 2.97 L Hgb 8.4 L Hct 27.4 L MCV 92.2 MCH 28.4 MCHC 30.8 L RDW 18.2 H Plt Count 78 L D MPV 8.3 Absolute Neuts (auto) 1.9 Neutrophils % 5.7 L D Neutrophils % (Manual) 1.1 L Band Neutrophils % 0.0 Lymphocytes % 93.6 H Lymphocytes % (Manual) 93.6 H* Monocytes % 0.7 L Monocytes % (Manual) 5 Eosinophils % 0.0 D Eosinophils % (Manual) 0.0 Basophils % 0.0 Basophils % (Manual) 0.0 Myelocytes % (Man) 0 Promyelocytes % (Man) 0 Blast Cells % (Manual) 0 D Nucleated RBC % 0 Metamyelocytes 0 Smudge Cells Hypochromia 0 Platelet Estimate Decreased Platelet Comment Polychromasia 1+ Poikilocytosis 1+ Anisocytosis 2+ Microcytosis 2+ Macrocytosis 0 Tear Drop Cells 1+ Sodium 145 Potassium 4.0 Chloride 113 H Carbon Dioxide 23 Anion Gap 10 BUN 78 H Creatinine 3.5 H Creat Clearance w eGFR 17.67 POC Glucometer 154 Random Glucose 95 Calcium 8.1 L Magnesium 2.3 Total Bilirubin 0.3 AST 15 ALT 14 Alkaline Phosphatase 72 Total Protein 5.5 L Albumin 3.0 L Urine Color Urine Appearance Urine pH Ur Specific [place] Urine Protein Urine Glucose (UA) Urine Ketones Urine Blood Urine Nitrite Urine Bilirubin Urine Urobilinogen Ur Leukocyte Esterase Urine WBC (Auto) Urine RBC (Auto) Ur Epithelial Cells Urine Mucus Urine Yeast C. trachomatis (TRACY) N. gonorrhoeae (TRACY) 12/12/17 12/12/17 06:45 12:02 WBC RBC Hgb Hct MCV MCH MCHC RDW Plt Count MPV Absolute Neuts (auto) Neutrophils % Neutrophils % (Manual) Band Neutrophils % Lymphocytes % Lymphocytes % (Manual) Monocytes % Monocytes % (Manual) Eosinophils % Eosinophils % (Manual) Basophils % Basophils % (Manual) Myelocytes % (Man) Promyelocytes % (Man) Blast Cells % (Manual) Nucleated RBC % Metamyelocytes Smudge Cells Hypochromia Platelet Estimate Platelet Comment Polychromasia Poikilocytosis Anisocytosis Microcytosis Macrocytosis Tear Drop Cells Sodium Potassium Chloride Carbon Dioxide Anion Gap BUN Creatinine Creat Clearance w eGFR POC Glucometer 110 109 Random Glucose Calcium Magnesium Total Bilirubin AST ALT Alkaline Phosphatase Total Protein Albumin Urine Color Urine Appearance Urine pH Ur Specific [place] Urine Protein Urine Glucose (UA) Urine Ketones Urine Blood Urine Nitrite Urine Bilirubin Urine Urobilinogen Ur Leukocyte Esterase Urine WBC (Auto) Urine RBC (Auto) Ur Epithelial Cells Urine Mucus Urine Yeast C. trachomatis (TRACY) N. gonorrhoeae (TRACY) Active Medications Generic Name Dose Route Start Last Admin Trade Name Freq PRN Reason Stop Dose Admin Acetaminophen 650 mg 12/04/17 13:36 12/08/17 16:25 Tylenol - PO 650 mg Q6H PRN Administration PAIN LEVEL 1-5 Allopurinol 100 mg 12/03/17 10:00 12/12/17 09:17 Zyloprim - PO 100 mg DAILY LIDIA Administration Calcium Carbonate 650 mg 12/07/17 16:00 12/12/17 09:25 Calcium Carbonate - PO 650 mg DAILY LIDIA Administration Carvedilol 6.25 mg 12/03/17 10:00 12/12/17 09:19 Coreg - PO 6.25 mg BID LIDIA Administration Clotrimazole 1 applic 12/07/17 13:30 12/12/17 09:24 Lotrisone Cream (Small Tube) TP 1 applic BID LIDIA Administration Darunavir 600 mg 12/03/17 10:00 12/12/17 09:22 Prezista - PO 600 mg BID LIDIA Administration Ferrous Sulfate 325 mg 12/06/17 17:30 12/12/17 12:46 Feosol - PO 325 mg TIDCM LIDIA Administration Finasteride 5 mg 12/03/17 10:00 12/12/17 09:17 Proscar - PO 5 mg DAILY LIDIA Administration Furosemide 60 mg 12/12/17 10:00 12/12/17 09:17 Lasix - PO 60 mg DAILY LIDIA Administration Hydralazine HCl 25 mg 12/03/17 10:00 12/12/17 09:17 Apresoline - PO 25 mg BID LIDIA Administration Insulin Aspart 1 vial 12/03/17 07:00 12/12/17 12:16 Novolog Vial Sliding Scale - SQ Not Given ACHS [facility] Protocol Melatonin 15 mg 12/06/17 22:00 12/11/17 22:01 Melatonin PO 15 mg HS PRN Administration INSOMNIA Mupirocin 1 applic 12/06/17 15:00 12/12/17 06:46 Bactroban 2% Ointment - TP 1 applic TID LIDIA Administration Nifedipine 60 mg 12/03/17 10:00 12/12/17 09:23 Procardia Xl - PO 60 mg DAILY LIDIA Administration Raltegravir 400 mg 12/03/17 10:00 12/12/17 09:22 Isentress - PO 400 mg BID LIDIA Administration Ritonavir 100 mg 12/03/17 10:00 12/12/17 09:21 Norvir - PO 100 mg BID LIDIA Administration Sodium Bicarbonate 650 mg 12/03/17 10:00 12/12/17 09:17 Sodium Bicarbonate - PO 650 mg BID LIDIA Administration Sucralfate 1 gm 12/07/17 22:00 12/12/17 09:19 Carafate Oral Suspension - PO 1 gm QID LIDIA Administration Tamsulosin HCl 0.4 mg 12/03/17 10:00 12/12/17 09:18 Flomax - PO 0.4 mg BID LIDIA Administration ASSESSMENT/PLAN:
[2017-12-12 14:38] VITALS: BP 122/58; PULSE 65; TEMP 98.3
== END 2017-12-12 18:35 | disposition home health service (06) | DRG 699 ==
LOC: JER 15:36 → JERBED 23:46 → J7W 12-03 12:58
PROVIDERS: ADMIT Internal Medicine; ATTEND Nurse Practitioner Family
DX: T83.511A Infection and inflammatory reaction due to indwelling urethral catheter, initial encounter (principal); C91.10 Chronic lymphocytic leukemia of B-cell type not having achieved remission; B20 Human immunodeficiency virus [HIV] disease; E87.2 Acidosis; R18.8 Other ascites; N13.30 Unspecified hydronephrosis; N39.0 Urinary tract infection, site not specified; I25.10 Atherosclerotic heart disease of native coronary artery without angina pectoris; D64.9 Anemia, unspecified; K74.60 Unspecified cirrhosis of liver; R06.03 Acute respiratory distress; Z79.84 Long term (current) use of oral hypoglycemic drugs; M10.9 Gout, unspecified; Y84.6 Urinary catheterization as the cause of abnormal reaction of the patient, or of later complication, without mention of misadventure at the time of the procedure; B18.2 Chronic viral hepatitis C; N40.1 Benign prostatic hyperplasia with lower urinary tract symptoms; R33.8 Other retention of urine; E11.22 Type 2 diabetes mellitus with diabetic chronic kidney disease; I12.9 Hypertensive chronic kidney disease with stage 1 through stage 4 chronic kidney disease, or unspecified chronic kidney disease; N18.9 Chronic kidney disease, unspecified; D70.9 Neutropenia, unspecified; K21.9 Gastro-esophageal reflux disease without esophagitis; B96.5 Pseudomonas (aeruginosa) (mallei) (pseudomallei) as the cause of diseases classified elsewhere; R19.5 Other fecal abnormalities; D69.6 Thrombocytopenia, unspecified; R16.2 Hepatomegaly with splenomegaly, not elsewhere classified; R59.1 Generalized enlarged lymph nodes; N48.22 Cellulitis of corpus cavernosum and penis
CPT/HCPCS: 36415; 36430; 36600; 71045-TC-FY; 72192-TC; 74176-TC; 76705-TC; 76870-TC; 80048; 80053; 81003; 81015; 82272; 82436; 82570; 82728; 82803; 82962; 83540; 83550; 83605; 83735; 84100; 84133; 84300; 84466; 84484; 85025; 85044; 85610; 85730; 86359; 86360; 86677; 86850; 86900; 86901; 86922; 87040; 87086; 87338; 87389; 87491; 87591; 93005; 93010; 93970-TC; 99285-25; J0131; J0885; J1644; J7030; P9038; P9058; Q9967

== ENCOUNTER 2018-01-05 05:35 | Inpatient (IN) | payer OTHER ==
--- NOTE | 2018-01-05 05:55 | PDOC ---
History of Present Illness - General Chief Complaint: Cold Symptoms Stated Complaint: FLU SYMPTOMS/DEHYDRATED Time Seen by Provider: 01/05/18 05:55 - History of Present Illness Initial Comments: 67 year old male with a significant past medical history of HTN, DM, HIV+ (CD4+ 700 and undectable VL 1 month ago), CLL, cirrhosis, CKD (vein mapping for fistula placement), chronic anemia, BPH, and Hep C (s/p Harvoni tx) presenting with fatigue and feeling "dehydrated". He believes he had the flu a week ago because he had cough and myalgias. He is main complaint is fatigue with exertion that has been gradually worsening over the past few weeks. He also admits to dysgeusia. Denies fevers, chills, nausea, vomiting, or other symptoms. Allof his providers are at [facility] with the exception of Dr. Mcelroy. 01/05/18 05:59 Past History - Past Medical History Allergies/Adverse Reactions: Allergies Allergy/AdvReac Type Severity Reaction Status Date / Time lactose AdvReac Verified 01/09/18 21:57 Home Medications: Ambulatory Orders Ritonavir [Norvir] 100 mg PO BID #0 tablet 01/07/13 Allopurinol [Zyloprim -] 100 mg PO DAILY 09/01/15 Carvedilol [Coreg -] 6.25 mg PO BID 09/01/15 Nifedipine [Nifedical Xl] 60 mg PO DAILY 09/01/15 Raltegravir [Isentress] 400 mg PO BID 09/01/15 Rilpivirine HCl [Edurant] 25 mg PO DAILY 09/01/15 Darunavir Ethanolate [Prezista -] 600 mg PO BID 07/09/16 Ranitidine [Zantac -] 150 mg PO DAILY 14 Days tablet 09/21/17 Tamsulosin HCl [Flomax -] 0.4 mg PO BID 14 Days cap.er.24h 09/21/17 Finasteride [Proscar -] 5 mg PO DAILY 11/05/17 Sitagliptin Phosphate [Januvia] 25 mg PO DAILY 11/05/17 Sodium Bicarbonate - 650 mg PO BID 11/05/17 hydrALAZINE HCL [Apresoline -] 25 mg PO BID tablet 11/13/17 Calcium Carbonate - 650 mg PO DAILY #30 tablet 12/12/17 Ferrous Sulfate [Feosol] 325 mg PO TIDCM #30 ud 12/12/17 Furosemide [Lasix] 80 mg PO DAILY 01/05/18 Anemia: Yes Asthma: No Cancer: Yes (lymphacystic leukemia) Cardiac Disorders: Yes CVA: No COPD: No CHF: No DVT: No Dementia: No Diabetes: Yes GI Disorders: No Disorders: No HTN: Yes Hypercholesterolemia: No Kidney Stones: Yes Liver Disease: Yes (cirrhosis) Seizures: No Thyroid Disease: No - Surgical History Abdominal Surgery: No Appendectomy: No Cardiac Surgery: No Cholecystectomy: No Gastric Stapling: No Lung Surgery: No Neurologic Surgery: No Orthopedic Surgery: No - Immunization History Td Vaccination: Yes Immunization Up to Date: Yes - Suicide/Smoking/Psychosocial Hx Smoking Status: Yes Smoking History: Never smoked Years of Tobacco Use: 25 Have you smoked in the past 12 months: No Number of Cigarettes Smoked Daily: 0 If you are a former smoker, when did you quit?: > 25 yrs ago Cigars Per Day: 0 Information on smoking cessation initiated: No 'Breaking Loose' booklet given: 12/26/12 Hx Alcohol Use: No Drug/Substance Use Hx: No Substance Use Type: None Hx Substance Use Treatment: No Review of Systems - Review of Systems Constitutional: No: Chills, Diaphoresis, Fever, Loss of Appetite HEENTM: No: Eye Pain, Blurred Vision, Tearing Respiratory: No: Cough, Orthopnea, Shortness of Breath Cardiac (ROS): No: Chest Pain, Edema, Irregular Heart Rate ABD/GI: No: Diarrhea, Nausea, Vomiting : No: Dysuria, Discharge, Frequency, Pain, Urgency Integumentary: No: Bruising, Change in Color, Lesions Neurological: No: Headache, Numbness, Paresthesia Psychiatric: No: Anxiety, Depression Hematologic/Lymphatic: No: Anemia, Blood Clots, Easy Bleeding *Physical Exam - Vital Signs Last Vital Signs Temp Pulse Resp BP Pulse Ox 99.4 F 84 18 137/51 L 99 01/05/18 05:50 01/05/18 05:50 01/05/18 05:50 01/05/18 05:50 01/05/18 05:50 - Physical Exam General Appearance: Yes: Nourished, Appropriately Dressed. No: Apparent Distress HEENT: positive: EOMI, BLAS Neck: positive: Trachea midline, Normal Thyroid, Supple. negative: Tender, Rigid Respiratory/Chest: positive: Lungs Clear, Normal Breath Sounds. negative: Chest Tender, Respiratory Distress, Accessory Muscle Use Cardiovascular: positive: Regular Rhythm, Regular Rate Gastrointestinal/Abdominal: positive: Normal Bowel Sounds, Protuberent, Distended. negative: Tender Lymphatic: negative: Adenopathy, Tenderness Musculoskeletal: positive: Normal Inspection. negative: Decreased Range of Motion Extremity: positive: Normal Capillary Refill, Normal Inspection, Swelling. negative: Tender Integumentary: positive: Normal Color, Dry, Warm, Swelling (pitting edema to thighs bilaterally 2 +) Neurologic: positive: Fully Oriented, Alert, Normal Mood/Affect, Normal Response , Motor Strength 5/5 ED Treatment Course - LABORATORY CBC & Chemistry Diagram: 01/07/18 13:45 01/07/18 06:30 Medical Decision Making - Medical Decision Making 67 year old with controlled HIV, cirrhosis (Hep C s/p harvoni), and CLL presenting with worsening dyspnea for the past three weeks along with increasing leg swelling and abdominal distension concerning for worsening liver failure. Given patient's comorbidities and worsening dyspnea, will obtain labs and CXR. Patient signed out to oncoming medical team pending results and likely admission. 01/05/18 06:59 *DC/Admit/Observation/Transfer Diagnosis at time of Disposition: CLL (chronic lymphocytic leukemia), HIV (human immunodeficiency virus infection ), Cirrhosis of liver Chronic kidney disease Qualifiers: Chronic kidney disease stage: unspecified stage Qualified Code(s): N18.9 - Chronic kidney disease, unspecified - Discharge Dispostion Disposition: HOME Condition at time of disposition: Stable - Referrals - Patient Instructions - Post Discharge Activity
[2018-01-05] MEDS ORDERED: SODIUM CHLORIDE 0.9% 500 ML INFUS.BAG IV ONE (06:00)
--- NOTE | 2018-01-05 06:15 | PDOC ---
Attending Attestation - Resident Resident Name: Kaylee Urena - ED Attending Attestation I have performed the following: I have examined & evaluated the patient, The case was reviewed & discussed with the resident, I agree w/resident's findings & plan - HPI HPI: 01/05/18 19:34 Pt comes with SOB. He is extememly ill; he has a hx of HIV and hepatits - now with worsening anasarca and ascites. He has never had a peritoneal tap. He has no fever and no chills. Pt is tachypneic. Bloods and admission labs and imaging and EKG ordered. Pt turned over to the day ER team. - Physicial Exam PE: 01/05/18 19:36 Agree with resident exam. Pt is afebrile Pt has 3+ pitting edema of ankles, swelling goes up to the scrotum. Pt has abd full of ascites. Pt has crackles at the bases of his lungs. He is tachycardic, and states that he has not been eating. HEENT normal, however, temporal wasting and hollou cheeks due to dehydration and starvation and weight loss. 01/05/18 19:39 - Medical Decision Making 01/05/18 19:39 Admit once labs and imaging and EKG are back.
[2018-01-05 08:46] LABS: ALK PHOS 97 U/L (45-117); ANION GAP 12 MMOL/L (8-16); BILIRUBIN,TOTAL 0.4 mg/dL (0.2-1); BLOOD UREA NITROGEN 62 mg/dL (7-18); CALCIUM 8.1 mg/dL (8.5-10.1); CHLORIDE 109 mmol/L (98-107); CO2 18 mmol/L (21-32); CREATININE 3.4 mg/dL (0.55-1.3); GLUCOSE,RANDOM 143 mg/dL (74-106); POTASSIUM 5.2 mmol/L (3.5-5.1); SGOT/AST 18 U/L (15-37); SGPT/ALT 18 U/L (13-61); SODIUM 139 mmol/L (136-145); TOT PROT 5.8 g/dl (6.4-8.2)
[2018-01-05 08:47] LABS: INR 1.08 (0.83-1.09); PROTHROMBIN TIME (PATIENT) 12.8 SEC (9.7-13.0)
[2018-01-05 08:50] LABS: ACTIVATED PTT 27.7 SECONDS (25.2-36.5)
[2018-01-05 08:53] LABS: N-TERMINAL BNP 5762.6 pg/ml (5-125)
[2018-01-05 09:04] LABS: MAGNESIUM 2.7 mg/dL (1.8-2.4)
--- NOTE | 2018-01-05 09:08 | PDOC ---
*Physical Exam - Vital Signs Last Vital Signs Temp Pulse Resp BP Pulse Ox 99.4 F 84 18 137/51 L 99 01/05/18 05:50 01/05/18 05:50 01/05/18 05:50 01/05/18 05:50 01/05/18 05:50 - Physical Exam Comments: 01/05/18 09:00 The patient was signed out to me by night team. When I saw the patient, he has been complaining of fatigue, dyspnea since flu like symptoms that he experienced last week. He also reports increased swelling in lower extremities up to his groin. CBC with diff, CMP, coags, cardiac panel, UA, urine culture, was ordered. EKG was done: atrial flutter, vent rate 79, QT/QTC: 408/467, no anastasia/std. Differential diagnosis includes dyspnea due fluid overload based on underlying CKD, liver cirrhosis, Lasix 40 mg IV ONCE was ordered. General Appearance: Yes: Nourished, Appropriately Dressed HEENT: positive: EOMI, BLAS Respiratory/Chest: positive: Crackles (bilateral at bases). negative: Accessory Muscle Use, Wheezing Cardiovascular: positive: Regular Rhythm, Murmur (left upper sternal border), Systolic Murmur. negative: Gallop/S4 Gastrointestinal/Abdominal: positive: Normal Bowel Sounds, Organomegaly ( hepatomegaly), Distended, Hepatomegaly, Other (fluid present) Extremity: positive: Other (lower extremity edema from feet to groin 2+) Neurologic: positive: Fully Oriented, Alert ED Treatment Course - LABORATORY CBC & Chemistry Diagram: 01/05/18 08:10 01/05/18 08:10 - ADDITIONAL ORDERS Additional order review: Laboratory Results 01/05/18 01/05/18 01/05/18 08:10 08:10 08:10 PT with INR Cancelled 12.80 INR Cancelled 1.08 PTT (Actin FS) 27.7 Sodium Potassium Chloride Carbon Dioxide Anion Gap BUN Creatinine Creat Clearance w eGFR Random Glucose Calcium Total Bilirubin AST ALT Alkaline Phosphatase Creatine Kinase 41 Troponin I < 0.02 B-Natriuretic Peptide 5762.6 H Total Protein Albumin 01/05/18 08:10 PT with INR INR PTT (Actin FS) Sodium 139 Potassium 5.2 H Chloride 109 H Carbon Dioxide 18 L Anion Gap 12 BUN 62 H Creatinine 3.4 H Creat Clearance w eGFR 18.27 Random Glucose 143 H Calcium 8.1 L Total Bilirubin 0.4 AST 18 ALT 18 Alkaline Phosphatase 97 Creatine Kinase Troponin I B-Natriuretic Peptide Total Protein 5.8 L Albumin 3.0 L - Medications Given in the ED: ED Medications Discontinued Medications Generic Name Dose Route Start Last Admin Trade Name Freq PRN Reason Stop Dose Admin Sodium Chloride 1,000 ml 01/05/18 06:00 01/05/18 07:06 Normal Saline - IV 01/05/18 06:01 Not Given ONCE ONE Medical Decision Making - Medical Decision Making 01/05/18 11:03 Hospitalist was called for admission. Decision to admit to obs med surg placed. 01/05/18 12:19 Dr Live-electric motor fitter was called. *DC/Admit/Observation/Transfer Diagnosis at time of Disposition: CLL (chronic lymphocytic leukemia), HIV (human immunodeficiency virus infection ), Chronic kidney disease, Cirrhosis of liver - Discharge Dispostion Condition at time of disposition: Stable Decision to Admit order: Yes - Referrals - Patient Instructions - Post Discharge Activity
[2018-01-05] MEDS ORDERED: FUROSEMIDE 40 MG/4 ML INJECTABLE VIAL IVPUSH ONE (09:29)
[2018-01-05 09:32] LABS: EOS % 0.2 % (0-4.5); HEMATOCRIT 25.9 % (35.4-49); HEMOGLOBIN 8.6 GM/dL (11.7-16.9); LYMPH % 96.6 % (8-40); MCH 29.7 pg (25.7-33.7); MCHC 33.2 g/dl (32.0-35.9); MEAN CELL VOLUME 89.5 fl (80-96); MEAN PLT VOLUME 8.3 fl (7.5-11.1); MONO % 0.6 % (3.8-10.2); NEUT % 2.6 % (42.8-82.8); PLATELET COUNT 104 K/MM3 (134-434); RBC 2.89 M/mm3 (4.00-5.60); RDW 18.2 % (11.9-15.9); WHITE BLOOD COUNT 25.5 K/mm3 (4.0-10.0)
[2018-01-05] MEDS ORDERED: FUROSEMIDE 40 MG/4 ML INJECTABLE VIAL ONE (10:04)
--- NOTE | 2018-01-05 11:38 | HP ---
Admitting History and Physical - Primary Care Physician PCP: Rahel - Admission Chief Complaint: dehydration History of Present Illness: 67 M h/o HTN, DM, HIV (CD4+ 700 one month ago), CLL, cirrhosis, CKD s/p vein mapping, chronic anemia, BPH, Hep C (s/p Harvoni tx) presented to the ED with complaint of feeling dehydrated. He said he's been feeling unwell lately with poor appetite and subjective weight gain. He said he recovered from flu with symptoms like fever, chills, and myalgia 1 week ago but still feeling dehydrated and tired. He attributes the symptoms to possible pneumonia because he had previously diagnosed and treated for BOBBI infection in the setting of HIV positive. Denies chest pain, shortness of breath, n/v, constipation, diarrhea. History Source: Patient Limitations to Obtaining History: No Limitations - Past Medical History Cardiovascular: Yes: HTN Hepatobiliary: Yes: Cirrhosis, Hepatitis C Renal/: Yes: Renal Inusuff, BPH, Other (hesitancy, intermittemncy, poor stream ) Heme/Onc: Yes: Other (CLL) Infectious Disease: Yes: HIV Endocrine: Yes: Diabetes Mellitus - Past Surgical History Past Surgical History: Yes: None - Smoking History Smoking history: Never smoked Have you smoked in the past 12 months: No Aproximately how many cigarettes per day: 0 If you are a former smoker, when did you quit?: > 25 yrs ago - Alcohol/Substance Use Hx Alcohol Use: No History of Substance Use: reports: Cocaine (IV, quit x 25 yrs), Heroin ( Intravenous) - Social History ADL: Independent 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 [employer] History of Recent Travel: No Home Medications - Allergies Allergies/Adverse Reactions: Allergies Allergy/AdvReac Type Severity Reaction Status Date / Time lactose AdvReac Verified 01/05/18 05:50 - Home Medications Home Medications: Ambulatory Orders Ritonavir [Norvir] 100 mg PO BID #0 tablet 01/07/13 Allopurinol [Zyloprim -] 100 mg PO DAILY 09/01/15 Carvedilol [Coreg -] 6.25 mg PO BID 09/01/15 Nifedipine [Nifedical Xl] 60 mg PO DAILY 09/01/15 Raltegravir [Isentress] 400 mg PO BID 09/01/15 Rilpivirine HCl [Edurant] 25 mg PO DAILY 09/01/15 Darunavir Ethanolate [Prezista -] 600 mg PO BID 07/09/16 Ranitidine [Zantac -] 150 mg PO DAILY 14 Days tablet 09/21/17 Tamsulosin HCl [Flomax -] 0.4 mg PO BID 14 Days cap.er.24h 09/21/17 Finasteride [Proscar -] 5 mg PO DAILY 11/05/17 Sitagliptin Phosphate [Januvia] 25 mg PO DAILY 11/05/17 Sodium Bicarbonate - 650 mg PO BID 11/05/17 hydrALAZINE HCL [Apresoline -] 25 mg PO BID tablet 11/13/17 Calcium Carbonate - 650 mg PO DAILY #30 tablet 12/12/17 Ferrous Sulfate [Feosol] 325 mg PO TIDCM #30 ud 12/12/17 Furosemide [Lasix -] 60 mg PO DAILY #120 tablet 12/12/17 Family Disease History - Family Disease History Family Disease History: Heart Disease: Father ( of [place] at 55, ETOH), Other: Father, Mother (Dementia, hypertension), Brother (2, healthy), Sister (4, one with hypertension), Daughter (1, healthy) Review of Systems - Review of Systems Constitutional: reports: Loss of Appetite, Malaise Cardiovascular: denies: Chest Pain, Shortness of Breath Respiratory: reports: Cough, SOB on Exertion Gastrointestinal: reports: Abdominal Pain, Bloating. denies: Constipation, Diarrhea, Nausea, Vomiting Physical Examination Vital Signs: Vital Signs Temperature 99.4 F 01/05/18 05:50 Pulse Rate 84 01/05/18 05:50 Respiratory Rate 18 01/05/18 05:50 Blood Pressure 137/51 L 01/05/18 05:50 O2 Sat by Pulse Oximetry (%) 95 01/05/18 07:30 Constitutional: Yes: No Distress, Calm Neck: No: Lymphadenopathy Cardiovascular: Yes: Regular Rate and Rhythm, S1, S2. No: Murmur Respiratory: Yes: Other (crackles in b/l bases) Gastrointestinal: Yes: Normal Bowel Sounds, Distention Edema: Yes Edema: LLE: 4+, RLE: 4+ Labs: CBC, BMP 01/05/18 08:10 01/05/18 08:10 Imaging - Results X-ray: Report Reviewed, Image Reviewed Assessment/Plan 67 yo M admitted to obs for malaise likely due to dehydration from poor PO intake in the setting of CKD and daily lasix. Malaise -- likely 2/2 poor PO intake and dehydration -- need to r/o URI considering pt's comorbidities * CT chest to r/o pna * influenza swab -- encourage PO intake -- hold off IVF and lasix -- awaiting renal consult for fluid recs CKD -- s/p vein mapping -- no sign of worsening fluid overload on exam -- Cr at baseline BPH --outpatient followup with Dr. Loomis CLL --followed at [facility] Chronic anemia --h/h stable at baseline Hypertension Coronary artery disease --continue carvedilol, nifedipine, hydralazine Type II DM --Novolog sliding scale coverage Gout --continue allopurinol HIV/AIDS --continue HAART Hepatitis C --s/p Harvoni --LFTs stable FEN Fluids: encourage PO intake Electrolytes: replete as indicated Nutrition: renal diet DVT prophylaxis: SCDs due to thrombocytopenia Dispo: admit to obs awaiting renal rec. Visit type - Emergency Visit Emergency Visit: Yes Care time: The patient presented to the Emergency Department on the above date and was hospitalized for further evaluation of their emergent condition. - New Patient This patient is new to me today: Yes Date on this admission: 01/05/18 - Critical Care Critical Care patient: No
--- NOTE | 2018-01-05 11:52 | EKG ---
Test Reason : Blood Pressure : / mmHG Vent. Rate : 079 BPM Atrial Rate : 357 BPM P-R Int : 000 ms QRS Dur : 096 ms QT Int : 408 ms P-R-T Axes : 047 035 063 degrees QTc Int : 467 ms ATRIAL FLUTTER VOLTAGE CRITERIA FOR LEFT VENTRICULAR HYPERTROPHY ABNORMAL ECG WHEN COMPARED WITH ECG OF 02-DEC-2017 21:49, ATRIAL FLUTTER HAS REPLACED SINUS RHYTHM T WAVE INVERSION NO LONGER EVIDENT IN LATERAL LEADS Confirmed by GLORIA CORTEZ MD ([id number] on 01/05/2018 11:51:35 AM Referred By: Confirmed By:GLORIA CORTEZ MD
[2018-01-05 12:08] LABS: ANISOCYTOSIS 1+; MACROCYTOSIS 0; PLATELET ESTIMATE DECREASED
[2018-01-05 12:27] LABS: URINE APPEARANCE CLOUDY; URINE BILIRUBIN NEGATIVE (<2.0 mg/dL); URINE COLOR YELLOW; URINE GLUCOSE (UA) 1+ (NEGATIVE); URINE KETONE NEGATIVE (NEGATIVE); URINE LEUK ESTERASE NEGATIVE (NEGATIVE); URINE NITRITE NEGATIVE (NEGATIVE); URINE PROTEIN 3+ (NEGATIVE); URINE UROBILINOGEN NEGATIVE mg/dL (0.2-1.0)
[2018-01-05 12:43] LABS: EPI CELLS RARE /HPF (FEW); URINE MUCUS RARE
[2018-01-05] MEDS ORDERED: hydrALAZINE HCL 25 MG TABLET (FP) PO SCH (12:45)
--- NOTE | 2018-01-05 13:04 | PN ---
Teaching Attending Note Name of Resident: Jacques Trivedi ATTENDING PHYSICIAN STATEMENT I saw and evaluated the patient. I reviewed the resident's note and discussed the case with the resident. I agree with the resident's findings and plan as documented with exceptions below. SUBJECTIVE: 67 yom with PMHx of CLL (s/p treatment 2 years ago, recent WBC 50s, being monitored), CKD stage IV-V (recent baseline Cr around 3.5), HIV on HAART (last CD4 700 in 11/2017), HCV s/p Harvoni treatment, cirrhosis with portal hypertension, prior IV Heroine/cocaine use, exsmoker, HTN, Prior NICM last EF 65 % in 2016, Cath x 2 with normal coronaries, NIDDM, chronic leg edema, recent recurrent admissions to [facility] with RICHY , then obstructive uropathy/Pseudomonas UTI, last discharged with ortiz was seen by Dr. Loomis s/p cystoscopy on 12/18 after which his ortiz was removed. Patient was doing well, till about 2 weeks ago, when started noticing fevers, chills, dry non productive cough with myalgias, anorexia and poor po intake. Feels he has the 'flu'. Reports pos sick contacts then. Fevers were upto 102. His symptoms/fevers have been improving since but given overall weakness, and poor oral intake, came to the ED. Patient also reports recent weight gain (178 from reported dry weight 168 when checked with PCP last week), worsening leg swelling/abdominal distension with some progressive dyspnea. Denies any new orthopnea, PND or new concerns. Reports decreased dark urine. 12 point ROS done, neg except above. OBJECTIVE: Vital Signs Period Temp Pulse Resp BP Sys/[place] Pulse Ox Last 24 Hr 99.4 F 84 18 137/51 95-99 Intake & Output 01/02/18 01/03/18 01/04/18 01/05/18 23:59 23:59 23:59 23:59 Weight 180 lb GENERAL: Awake, alert, and fully oriented, in no acute distress. HEAD: Normal with no signs of trauma. EYES: Pupils equal, round and reactive to light, extraocular movements intact, sclera anicteric, conjunctiva clear. No lid lag. EARS, NOSE, THROAT: Ears normal, nares patent, oropharynx clear without exudates. Mildly dry mucous membrane NECK: Neck vein distension, soft, supple LUNGS: Right middle lobe rales, decreased breath sounds bilateral bases, R>L, no wheezing. HEART: S1S2 regular ABDOMEN: Soft, non tender, distended, positive bowel sounds MUSCULOSKELETAL: Normal range of motion at all joints. No bony deformities or tenderness. No CVA tenderness. UPPER EXTREMITIES: 2+ pulses, warm, well-perfused. No cyanosis. No clubbing. No peripheral edema. LOWER EXTREMITIES: 3+ pedal pitting edema NEUROLOGICAL: Cranial nerves II-XII intact. Normal speech. Gait deferred, facial symmetry PSYCHIATRIC: Cooperative. Good eye contact. Appropriate mood and affect. SKIN: Warm, dry, normal turgor, no rashes or lesions noted, normal capillary refill. Home Medications Medication Instructions Recorded Ritonavir [Norvir] 100 mg PO BID #0 tablet 01/07/13 Allopurinol [Zyloprim -] 100 mg PO DAILY 09/01/15 Carvedilol [Coreg -] 6.25 mg PO BID 09/01/15 Nifedipine [Nifedical Xl] 60 mg PO DAILY 09/01/15 Raltegravir [Isentress] 400 mg PO BID 09/01/15 Rilpivirine HCl [Edurant] 25 mg PO DAILY 09/01/15 Darunavir Ethanolate [Prezista -] 600 mg PO BID 07/09/16 Ranitidine [Zantac -] 150 mg PO DAILY 14 Days tablet 09/21/17 Tamsulosin HCl [Flomax -] 0.4 mg PO BID 14 Days cap.er.24h 09/21/17 Finasteride [Proscar -] 5 mg PO DAILY 11/05/17 Sitagliptin Phosphate [Januvia] 25 mg PO DAILY 11/05/17 Sodium Bicarbonate - 650 mg PO BID 11/05/17 hydrALAZINE HCL [Apresoline -] 25 mg PO BID tablet 11/13/17 Calcium Carbonate - 650 mg PO DAILY #30 tablet 12/12/17 Ferrous Sulfate [Feosol] 325 mg PO TIDCM #30 ud 12/12/17 Furosemide [Lasix] 80 mg PO DAILY 01/05/18 Active Medications Allopurinol (Zyloprim -) 100 mg PO DAILY [facility] Calcium Carbonate (Calcium Carbonate -) 650 mg PO DAILY [facility] Carvedilol (Coreg -) 6.25 mg PO BID [facility] Darunavir (Prezista -) 600 mg PO BID [facility] Ferrous Sulfate (Feosol -) 325 mg PO TIDCM [facility] Finasteride (Proscar -) 5 mg PO DAILY [facility] Hydralazine HCl (Apresoline -) 25 mg PO BID [facility] Insulin Aspart (Novolog Vial Sliding Scale -) 1 vial SQ ACHS [facility]; Protocol Nifedipine (Procardia Xl -) 60 mg PO DAILY [facility] Raltegravir (Isentress -) 400 mg PO BID [facility] Ranitidine HCl (Zantac -) 150 mg PO DAILY [facility] Ritonavir (Norvir -) 100 mg PO BID [facility] Sodium Bicarbonate (Sodium Bicarbonate -) 650 mg PO BID [facility] Tamsulosin HCl (Flomax -) 0.4 mg PO BID [facility] Laboratory Results - last 24 hr 01/05/18 01/05/18 01/05/18 08:10 08:10 08:10 WBC 25.5 H RBC 2.89 L Hgb 8.6 L Hct 25.9 L MCV 89.5 MCH 29.7 MCHC 33.2 RDW 18.2 H Plt Count 104 L D MPV 8.3 Absolute Neuts (auto) 0.7 L Neutrophils % 2.6 L Neutrophils % (Manual) 2.0 L Band Neutrophils % 1.0 Lymphocytes % 96.6 H Lymphocytes % (Manual) 89.3 H* Monocytes % 0.6 L Monocytes % (Manual) 2 L Eosinophils % 0.2 D Eosinophils % (Manual) 0.0 Basophils % 0.0 Basophils % (Manual) 0.0 Myelocytes % (Man) 0 Promyelocytes % (Man) 0 Blast Cells % (Manual) 0 Nucleated RBC % 0 Metamyelocytes 0 Hypochromia 0 Platelet Estimate Decreased Polychromasia 1+ Poikilocytosis 1+ Anisocytosis 1+ Macrocytosis 0 PT with INR 12.80 INR 1.08 PTT (Actin FS) 27.7 Sodium 139 Potassium 5.2 H Chloride 109 H Carbon Dioxide 18 L Anion Gap 12 BUN 62 H Creatinine 3.4 H Creat Clearance w eGFR 18.27 Random Glucose 143 H Calcium 8.1 L Magnesium 2.7 H Total Bilirubin 0.4 AST 18 ALT 18 Alkaline Phosphatase 97 Creatine Kinase Troponin I B-Natriuretic Peptide Total Protein 5.8 L Albumin 3.0 L Urine Color Urine Appearance Urine pH Ur Specific [place] Urine Protein Urine Glucose (UA) Urine Ketones Urine Blood Urine Nitrite Urine Bilirubin Urine Urobilinogen Ur Leukocyte Esterase Urine WBC (Auto) Urine RBC (Auto) Ur Epithelial Cells Urine Mucus Blood Type Antibody Screen 01/05/18 01/05/18 01/05/18 08:10 08:10 09:45 WBC RBC Hgb Hct MCV MCH MCHC RDW Plt Count MPV Absolute Neuts (auto) Neutrophils % Neutrophils % (Manual) Band Neutrophils % Lymphocytes % Lymphocytes % (Manual) Monocytes % Monocytes % (Manual) Eosinophils % Eosinophils % (Manual) Basophils % Basophils % (Manual) Myelocytes % (Man) Promyelocytes % (Man) Blast Cells % (Manual) Nucleated RBC % Metamyelocytes Hypochromia Platelet Estimate Polychromasia Poikilocytosis Anisocytosis Macrocytosis PT with INR Cancelled INR Cancelled PTT (Actin FS) Sodium Potassium Chloride Carbon Dioxide Anion Gap BUN Creatinine Creat Clearance w eGFR Random Glucose Calcium Magnesium Total Bilirubin AST ALT Alkaline Phosphatase Creatine Kinase 41 Troponin I < 0.02 B-Natriuretic Peptide 5762.6 H Total Protein Albumin Urine Color Urine Appearance Urine pH Ur Specific [place] Urine Protein Urine Glucose (UA) Urine Ketones Urine Blood Urine Nitrite Urine Bilirubin Urine Urobilinogen Ur Leukocyte Esterase Urine WBC (Auto) Urine RBC (Auto) Ur Epithelial Cells Urine Mucus Blood Type B NEGATIVE Antibody Screen Negative 01/05/18 12:15 WBC RBC Hgb Hct MCV MCH MCHC RDW Plt Count MPV Absolute Neuts (auto) Neutrophils % Neutrophils % (Manual) Band Neutrophils % Lymphocytes % Lymphocytes % (Manual) Monocytes % Monocytes % (Manual) Eosinophils % Eosinophils % (Manual) Basophils % Basophils % (Manual) Myelocytes % (Man) Promyelocytes % (Man) Blast Cells % (Manual) Nucleated RBC % Metamyelocytes Hypochromia Platelet Estimate Polychromasia Poikilocytosis Anisocytosis Macrocytosis PT with INR INR PTT (Actin FS) Sodium Potassium Chloride Carbon Dioxide Anion Gap BUN Creatinine Creat Clearance w eGFR Random Glucose Calcium Magnesium Total Bilirubin AST ALT Alkaline Phosphatase Creatine Kinase Troponin I B-Natriuretic Peptide Total Protein Albumin Urine Color Yellow Urine Appearance Cloudy Urine pH 5.0 Ur Specific [place] 1.013 Urine Protein 3+ H Urine Glucose (UA) 1+ H Urine Ketones Negative Urine Blood 1+ H Urine Nitrite Negative Urine Bilirubin Negative Urine Urobilinogen Negative Ur Leukocyte Esterase Negative Urine WBC (Auto) 39 Urine RBC (Auto) 12 Ur Epithelial Cells Rare Urine Mucus Rare Blood Type Antibody Screen CXR results noted. CT chest pending EKG NSR,no acute ST-T changes ASSESSMENT AND PLAN: 67 yom with extensive PMHx as above, admitted with suspected viral syndrome, poor oral intake and worsening edema -URI like illness, r/o PNA/atypical infection given immunocompromised state -Worsening edema (pedal edema/ascitis/Weight gain), ?acute diastolic HF -Poor oral intake -CKD stage IV-V -hyperkalemia -HIV On HAART (last CD4 700 in 11/2017) -recent obstructive uropathy s/p outpatient cystoscopy -h/o Pseudomonas UTI -NICM with normal cath, last EF 65% -HCV cirrhosis s/p treatment -NIDDM -HTN -Chronic leg edema -CLL (s/p treatment 2 years ago, recent WBC 50s, being monitored) PLan: Flu swab, CT chest. Hold off on abx for now. ID consult. (patient gives h/o BOBBI infection in the past) Volume status difficult to assess. Reported weight gain with worsening ascitis/ pedal edema, however patient with poor oral intake and looks mildly dry. ?intravascular depletion with third spacing. s/p lasix 40 mg IV in the ED. Hold off additional fluids or lasix. Patient encouraged to drink more fluids. Renal consult. FOllow up recs. Kayexalate x 1. Monitor K levels. Hold oral hypoglycemics, ISS, diabetic diet. Continue HAART, coreg/nifedipine/hydralazine. COntinue flomax/finasteride. Bladder scan x 1. DVTPPX heparin Dispo admit to obs for now. Plan discussed with patient in detail, all questions answered. total admit time 65 min.
--- NOTE | 2018-01-05 14:56 | CON.NEP ---
Consult Consult Specialty:: nephrology Reason for Consultation:: ckd - History of Present Illness Chief Complaint: feeling unwell History of Present Illness: 67 M h/o HTN, DM, HIV (CD4+ 700 one month ago), CLL, cirrhosis, CKD s/p vein mapping, chronic anemia, BPH, Hep C (s/p Harvoni tx) presented to the ED with complaint of feeling dehydrated. He said he's been feeling unwell lately with poor appetite and subjective weight gain. He said he recovered from flu with symptoms like fever, chills, and myalgia 1 week ago but still feeling dehydrated and tired. He attributes the symptoms to possible pneumonia because he had previously diagnosed and treated for BOBBI infection in the setting of HIV positive. Denies chest pain, shortness of breath, n/v, constipation, diarrhea. Main thing is that he has chapped lips and thought it was from pneumonia. He has dyspnea but no orthopnea. Was told he needs a liver-kidney transplant. - History Source History Provided By: Patient, Medical Record - Past Medical History Cardio/Vascular: Yes: HTN Hepatobiliary: Yes: Cirrhosis, Hepatitis C Renal/: Yes: Renal Inusuff, BPH, Other (hesitancy, intermittemncy, poor stream ) Infectious Disease: Yes: HIV Endocrine: Yes: Diabetes Mellitus Additional Medical History: lymphocytic leuckemia - Past Surgical History Past Surgical History: Yes: None - Alcohol/Substance Use Hx Alcohol Use: No History of Substance Use: reports: Cocaine (IV, quit x 25 yrs), Heroin ( Intravenous) - Smoking History Smoking history: Never smoked Have you smoked in the past 12 months: No Aproximately how many cigarettes per day: 0 If you are a former smoker, when did you quit?: > 25 yrs ago - Social History Usual Living Arrangement: Alone ADL: Independent 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 [employer] History of Recent Travel: No Home Medications - Allergies Allergies/Adverse Reactions: Allergies Allergy/AdvReac Type Severity Reaction Status Date / Time lactose AdvReac Verified 01/05/18 05:50 - Home Medications Home Medications: Ambulatory Orders Ritonavir [Norvir] 100 mg PO BID #0 tablet 01/07/13 Allopurinol [Zyloprim -] 100 mg PO DAILY 09/01/15 Carvedilol [Coreg -] 6.25 mg PO BID 09/01/15 Nifedipine [Nifedical Xl] 60 mg PO DAILY 09/01/15 Raltegravir [Isentress] 400 mg PO BID 09/01/15 Rilpivirine HCl [Edurant] 25 mg PO DAILY 09/01/15 Darunavir Ethanolate [Prezista -] 600 mg PO BID 07/09/16 Ranitidine [Zantac -] 150 mg PO DAILY 14 Days tablet 09/21/17 Tamsulosin HCl [Flomax -] 0.4 mg PO BID 14 Days cap.er.24h 09/21/17 Finasteride [Proscar -] 5 mg PO DAILY 11/05/17 Sitagliptin Phosphate [Januvia] 25 mg PO DAILY 11/05/17 Sodium Bicarbonate - 650 mg PO BID 11/05/17 hydrALAZINE HCL [Apresoline -] 25 mg PO BID tablet 11/13/17 Calcium Carbonate - 650 mg PO DAILY #30 tablet 12/12/17 Ferrous Sulfate [Feosol] 325 mg PO TIDCM #30 ud 12/12/17 Furosemide [Lasix] 80 mg PO DAILY 01/05/18 Family Disease History - Family Disease History Family Disease History: Heart Disease: Father ( of [place] at 55, ETOH), Other: Father, Mother (Dementia, hypertension), Brother (2, healthy), Sister (4, one with hypertension), Daughter (1, healthy) Review of Systems - Review of Systems Constitutional: reports: Loss of Appetite Eyes: reports: No Symptoms HENT: reports: No Symptoms Neck: reports: No Symptoms Cardiovascular: reports: Edema, Shortness of Breath Respiratory: reports: SOB on Exertion Gastrointestinal: reports: No Symptoms Genitourinary: reports: No Symptoms Breasts: reports: No Symptoms Reported Musculoskeletal: reports: No Symptoms Integumentary: reports: No Symptoms Neurological: reports: No Symptoms Endocrine: reports: No Symptoms Hematology/Lymphatic: reports: No Symptoms Psychiatric: reports: No Symptoms Nephrology Consult - Height Height: 5 ft 9 in - Weight Weight: 180 lb - BMI Body Mass Index (BMI): 26.6 - Lab Results CBC,BMP: CBC, BMP 01/05/18 08:10 01/05/18 08:10 Anion Gap: Anion Gap Anion Gap 12 MMOL/L (8-16) 01/05/18 08:10 - Imaging Cat Scan: Report Reviewed (pleural eff) - Physical Examination Vital Signs: Vital Signs Temperature 99.4 F 01/05/18 05:50 Pulse Rate 84 01/05/18 05:50 Respiratory Rate 18 01/05/18 05:50 Blood Pressure 137/51 L 01/05/18 05:50 O2 Sat by Pulse Oximetry (%) 95 01/05/18 07:30 Constitutional: Yes: Well Nourished, No Distress Eyes: Yes: Conjunctiva Clear HENT: Yes: Atraumatic, Normocephalic Neck: Yes: Supple, Trachea Midline Cardiovascular: Yes: Regular Rate and Rhythm, Murmur Respiratory: Yes: Diminished (right base) Gastrointestinal: Yes: Normal Bowel Sounds, Soft, Hepatomegaly (firm liver) Renal/: Yes: WNL Edema: Yes Edema: LLE: 3+, RLE: 3+ Peripheral Pulses WNL: Yes Wound/Incision: Yes: Well Approximated Neurological: Yes: Alert, Oriented Psychiatric: Yes: Alert, Oriented Assessment/Plan IMPRESSION CKD stage 4 symmetric edema s/o fluid overload and not a blockage due to enlarged lymphnodes moderate neutropenia with ANC around 660 liver cirrhosis- MELD 19 CLL HIV anemia sever epulmonary HTN by echo done in Sep 2017 PLAN would attempt diuresis cant take aldactone given hyperkalemia would give lasix 40 iv bid for now and monitor dc allopurinol given neutropenia heme eval urine sodium will help if low MV
[2018-01-05] MEDS: DARUNAVIR ETHANOLATE 600 MG TAB PO SCH ×2 (15:35→22:40)
[2018-01-05] MEDS: RILPIVIRINE HCL 25 MG TABLET PO SCH (15:35)
[2018-01-05] MEDS: RALTEGRAVIR POTASSIUM 400 MG TAB PO SCH ×2 (15:35→22:39)
[2018-01-05] MEDS: FINASTERIDE 5 MG TABLET (FP) PO SCH (15:36)
[2018-01-05] MEDS: SODIUM BICARBONATE 650 MG TABLET PO SCH ×2 (15:37→22:40)
[2018-01-05] MEDS: RITONAVIR 100 MG TABLET PO SCH ×2 (15:38→22:39)
[2018-01-05 17:30] VITALS: BMI 26.4
[2018-01-05] MEDS: FERROUS SO4 325 MG TABLET (FP) PO SCH (17:36)
[2018-01-05] MEDS: INSULIN SLIDING SCALE (NOVOLOG) 1 VIAL SQ SCH ×2 (17:36→22:07)
[2018-01-05] MEDS ORDERED: MELATONIN 5 MG TABLETS PO ONE (20:30)
[2018-01-05] MEDS ORDERED: INSULIN (NOVOLOG) ASPART 100 UNITS/ML 10ML VIAL ONE (21:02)
[2018-01-05] MEDS ORDERED: PT OWN MED DRAWER 7, Y5N ONE (21:02)
[2018-01-05] MEDS: TAMSULOSIN HCL 0.4 MG CAP PO SCH (22:39)
[2018-01-05] MEDS: CARVEDILOL 6.25 MG TABLET (FP) PO SCH (22:39)
[2018-01-05] MEDS: hydrALAZINE HCL 25 MG TABLET (FP) PO SCH (22:39)
[2018-01-06] MEDS ORDERED: INSULIN (NOVOLOG) ASPART 100 UNITS/ML 10ML VIAL ONE (05:31)
[2018-01-06] MEDS: INSULIN SLIDING SCALE (NOVOLOG) 1 VIAL SQ SCH ×4 (06:15→21:30)
[2018-01-06] MEDS: FUROSEMIDE 40 MG/4 ML INJECTABLE VIAL IVPUSH SCH ×2 (06:15→13:42)
[2018-01-06 08:45] LABS: EOS % 0.2 % (0-4.5); HEMATOCRIT 24.3 % (35.4-49); HEMOGLOBIN 7.6 GM/dL (11.7-16.9); LYMPH % 96.3 % (8-40); MCH 28.2 pg (25.7-33.7); MCHC 31.3 g/dl (32.0-35.9); MEAN CELL VOLUME 90.1 fl (80-96); MEAN PLT VOLUME 7.8 fl (7.5-11.1); MONO % 0.5 % (3.8-10.2); PLATELET COUNT 79 K/MM3 (134-434); WHITE BLOOD COUNT 15.9 K/mm3 (4.0-10.0)
[2018-01-06] MEDS: FERROUS SO4 325 MG TABLET (FP) PO SCH ×3 (08:50→17:19)
[2018-01-06] MEDS: TAMSULOSIN HCL 0.4 MG CAP PO SCH ×2 (08:55→21:29)
[2018-01-06 09:12] LABS: BLOOD UREA NITROGEN 69 mg/dL (7-18); CHLORIDE 111 mmol/L (98-107); CO2 18 mmol/L (21-32); CREATININE 3.6 mg/dL (0.55-1.3); GLUCOSE,RANDOM 110 mg/dL (74-106); POTASSIUM 4.6 mmol/L (3.5-5.1); SODIUM 141 mmol/L (136-145)
[2018-01-06 09:13] LABS: ALBUMIN 2.7 g/dl (3.4-5.0); ALK PHOS 89 U/L (45-117); ANION GAP 12 MMOL/L (8-16); BILIRUBIN,TOTAL 0.3 mg/dL (0.2-1); CALCIUM 7.8 mg/dL (8.5-10.1); MAGNESIUM 2.8 mg/dL (1.8-2.4); PHOSPHOROUS 4.5 mg/dL (2.5-4.9); SGOT/AST 13 U/L (15-37); SGPT/ALT 16 U/L (13-61); TOT PROT 5.3 g/dl (6.4-8.2)
[2018-01-06] MEDS ORDERED: PT OWN MED DRAWER 7, Y5N ONE ×2 (09:52→21:02)
[2018-01-06] MEDS ORDERED: NIFEdipine E.R 60 MG TABLET (UD) PO SCH (10:00)
[2018-01-06] MEDS: hydrALAZINE HCL 25 MG TABLET (FP) PO SCH ×2 (10:27→21:29)
[2018-01-06] MEDS: RANITIDINE HCL 150 MG TABLET (FP) PO SCH (10:27)
[2018-01-06] MEDS: CARVEDILOL 6.25 MG TABLET (FP) PO SCH ×2 (10:27→21:29)
[2018-01-06] MEDS: ALLOPURINOL 100 MG TABLET (FP) PO SCH (10:27)
[2018-01-06] MEDS: CALCIUM CARBONATE 650 MG TABLET PO SCH (10:27)
[2018-01-06] MEDS: FINASTERIDE 5 MG TABLET (FP) PO SCH (10:27)
[2018-01-06] MEDS: SODIUM BICARBONATE 650 MG TABLET PO SCH ×2 (10:27→21:29)
[2018-01-06] MEDS: RILPIVIRINE HCL 25 MG TABLET PO SCH (10:29)
[2018-01-06] MEDS: DARUNAVIR ETHANOLATE 600 MG TAB PO SCH ×2 (10:29→21:29)
[2018-01-06] MEDS: RITONAVIR 100 MG TABLET PO SCH ×2 (10:29→21:29)
[2018-01-06] MEDS: NIFEdipine E.R 60 MG TABLET (UD) PO SCH (10:29)
[2018-01-06] MEDS: RALTEGRAVIR POTASSIUM 400 MG TAB PO SCH ×2 (10:29→21:29)
--- NOTE | 2018-01-06 11:54 | PN ---
Progress Note (short form) - Note Progress Note: RENAL Pt is awake and alert says he feels better today still edematous but his right lung base is clearer otherwise ok Last Vital Signs Temp Pulse Resp BP Pulse Ox 98.4 F 74 18 137/62 96 01/06/18 05:25 01/06/18 05:25 01/06/18 05:25 01/06/18 05:25 01/06/18 03:00 CBC, BMP 01/06/18 08:15 01/06/18 08:15 Current Medications Generic Name Dose Route Start Last Admin Trade Name Freq PRN Reason Stop Dose Admin Allopurinol 100 mg 01/06/18 10:00 01/06/18 10:27 Zyloprim - PO 100 mg DAILY LIDIA Administration Calcium Carbonate 650 mg 01/06/18 10:00 01/06/18 10:27 Calcium Carbonate - PO 650 mg DAILY LIDIA Administration Carvedilol 6.25 mg 01/05/18 22:00 01/06/18 10:27 Coreg - PO 6.25 mg BID LIDIA Administration Darunavir 600 mg 01/05/18 12:45 01/06/18 10:29 Prezista - PO 600 mg BID LIDIA Administration Ferrous Sulfate 325 mg 01/05/18 17:30 01/06/18 08:50 Feosol - PO 325 mg TIDCM L[facility]IA Administration Finasteride 5 mg 01/05/18 12:45 01/06/18 10:27 Proscar - PO 5 mg DAILY L[facility]IA Administration Furosemide 40 mg 01/06/18 06:00 01/06/18 06:15 Lasix Injection - IVPUSH 40 mg BID@0600,1400 LIDIA Administration Hydralazine HCl 25 mg 01/05/18 13:10 01/06/18 10:27 Apresoline - PO 25 mg BID L[facility]IA Administration Insulin Aspart 1 vial 01/05/18 16:30 01/06/18 06:15 Novolog Vial Sliding Scale - SQ Not Given ACHS [facility] Protocol Nifedipine 60 mg 01/06/18 10:00 01/06/18 10:29 Procardia Xl - PO 60 mg DAILY [facility] Administration Raltegravir 400 mg 01/05/18 12:45 01/06/18 10:29 Isentress - PO 400 mg BID [facility] Administration Ranitidine HCl 150 mg 01/06/18 10:00 01/06/18 10:27 Zantac - PO 150 mg DAILY [facility] Administration Ritonavir 100 mg 01/05/18 12:45 01/06/18 10:29 Norvir - PO 100 mg BID [facility] Administration Sodium Bicarbonate 650 mg 01/05/18 12:45 01/06/18 10:27 Sodium Bicarbonate - PO 650 mg BID [facility] Administration Tamsulosin HCl 0.4 mg 01/05/18 22:00 01/06/18 08:55 Flomax - PO 0.4 mg BID@0830,2200 LIDIA Administration IMPRESSION CKD stage 4 symmetric edema s/o fluid overload and not a blockage due to enlarged lymph nodes moderate neutropenia with ANC around 500 liver cirrhosis- MELD 19 CLL HIV anemia severe pulmonary HTN by echo done in Sep 2017- contributing to edema PLAN would attempt diuresis cant take aldactone given hyperkalemia would give lasix 40 iv bid for now and monitor dc allopurinol given neutropenia heme eval urine sodium will help if low ask heme to eval MV
[2018-01-06 12:25] LABS: HEMATOCRIT 26.1 % (35.4-49); HEMOGLOBIN 8.1 GM/dL (11.7-16.9); MCHC 31.1 g/dl (32.0-35.9); MEAN CELL VOLUME 90.1 fl (80-96); MEAN PLT VOLUME 7.8 fl (7.5-11.1); PLATELET COUNT 82 K/MM3 (134-434); RDW 18.2 % (11.9-15.9); WHITE BLOOD COUNT 16.9 K/mm3 (4.0-10.0)
--- NOTE | 2018-01-06 14:07 | CON.ID ---
Consult Consult Specialty:: infectious disease Referred by:: hospitalist Reason for Consultation:: hiv - History of Present Illness Chief Complaint: increased lower extremity swelling History of Present Illness: 67 yo man with HIV - well controlled- cd4 702-, hep c s/p harvoni, CLL discharged on 12/12 with a ortiz catheter in place he received a 10 day course of ceftazidime- he is s/p cystoscopy 12/[address] Loomis and ortiz ws removed. reports having a fluilike illness that has resolved now with lower extremity edema no fevers doctors are all at [facility] - History Source History Provided By: Patient, Medical Record Limitations to Obtaining History: Clinical Condition - Past Medical History Cardio/Vascular: Yes: HTN Hepatobiliary: Yes: Cirrhosis, Hepatitis C Renal/: Yes: Renal Inusuff, BPH, Other (hesitancy, intermittemncy, poor stream ) Heme/Onc: Yes: Cancer (CLL) Infectious Disease: Yes: HIV Endocrine: Yes: Diabetes Mellitus Additional Medical History: lymphocytic leuckemia - Past Surgical History Past Surgical History: Yes: None - Alcohol/Substance Use Hx Alcohol Use: No History of Substance Use: reports: Cocaine (IV, quit x 25 yrs), Heroin ( Intravenous) - Smoking History Smoking history: Former smoker Have you smoked in the past 12 months: No Aproximately how many cigarettes per day: 0 If you are a former smoker, when did you quit?: > 25 yrs ago - Social History Usual Living Arrangement: Alone ADL: Independent 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 [employer] History of Recent Travel: No Home Medications - Allergies Allergies/Adverse Reactions: Allergies Allergy/AdvReac Type Severity Reaction Status Date / Time lactose AdvReac Verified 01/05/18 05:50 - Home Medications Home Medications: Ambulatory Orders Ritonavir [Norvir] 100 mg PO BID #0 tablet 01/07/13 Allopurinol [Zyloprim -] 100 mg PO DAILY 09/01/15 Carvedilol [Coreg -] 6.25 mg PO BID 09/01/15 Nifedipine [Nifedical Xl] 60 mg PO DAILY 09/01/15 Raltegravir [Isentress] 400 mg PO BID 09/01/15 Rilpivirine HCl [Edurant] 25 mg PO DAILY 09/01/15 Darunavir Ethanolate [Prezista -] 600 mg PO BID 07/09/16 Ranitidine [Zantac -] 150 mg PO DAILY 14 Days tablet 09/21/17 Tamsulosin HCl [Flomax -] 0.4 mg PO BID 14 Days cap.er.24h 09/21/17 Finasteride [Proscar -] 5 mg PO DAILY 11/05/17 Sitagliptin Phosphate [Januvia] 25 mg PO DAILY 11/05/17 Sodium Bicarbonate - 650 mg PO BID 11/05/17 hydrALAZINE HCL [Apresoline -] 25 mg PO BID tablet 11/13/17 Calcium Carbonate - 650 mg PO DAILY #30 tablet 12/12/17 Ferrous Sulfate [Feosol] 325 mg PO TIDCM #30 ud 12/12/17 Furosemide [Lasix] 80 mg PO DAILY 01/05/18 Family Disease History - Family Disease History Family Disease History: Heart Disease: Father ( of [place] at 55, ETOH), Other: Father, Mother (Dementia, hypertension), Brother (2, healthy), Sister (4, one with hypertension), Daughter (1, healthy) Review of Systems - Review of Systems Constitutional: reports: Weakness Eyes: reports: No Symptoms HENT: reports: No Symptoms Neck: reports: No Symptoms Cardiovascular: reports: No Symptoms. denies: Chest Pain Respiratory: reports: No Symptoms. denies: Cough Gastrointestinal: denies: Abdominal Pain Musculoskeletal: reports: Other (lower extremity edema) Physical Exam Vital Signs: Vital Signs Temperature 99.2 F 01/06/18 08:00 Pulse Rate 80 01/06/18 08:00 Respiratory Rate 18 01/06/18 08:00 Blood Pressure 111/57 L 01/06/18 08:00 O2 Sat by Pulse Oximetry (%) 95 01/06/18 11:00 Constitutional: Yes: Well Nourished, No Distress, Calm Eyes: Yes: Conjunctiva Clear HENT: No: Thrush Neck: Yes: Supple, Trachea Midline Cardiovascular: Yes: Regular Rate and Rhythm Respiratory: Yes: CTA Bilaterally Gastrointestinal: Yes: Normal Bowel Sounds, Soft. No: Tenderness, Epigastrium Edema: LLE: 2+, RLE: 2+ Psychiatric: Yes: Alert, Oriented Labs: CBC, BMP 01/06/18 12:05 01/06/18 08:15 Microbiology 11/24/18 12:06 Urine - Urine Clean Catch Urine Culture - Final NO GROWTH OBTAINED Imaging - Results Chest X-ray: Report Reviewed, Image Reviewed Cat Scan: Report Reviewed (lymphadenopathy, effusions, splenomegaly) Problem List - Problems (1) Edema Code(s): R60.9 - EDEMA, UNSPECIFIED (2) CLL (chronic lymphocytic leukemia) Code(s): C91.90 - LYMPHOID LEUKEMIA, UNSPECIFIED NOT HAVING ACHIEVED REMISSION (3) HIV (human immunodeficiency virus infection) Code(s): B20 - HUMAN IMMUNODEFICIENCY VIRUS [HIV] DISEASE (4) CKD (chronic kidney disease) Code(s): N18.9 - CHRONIC KIDNEY DISEASE, UNSPECIFIED Assessment/Plan management of leg edema per renal HIV well controlled, continue prezista/norvir/isentress no fevers- neutropenic due to CLL- would send stat cultures and start empiric antiibotics if he has fever
--- NOTE | 2018-01-06 14:33 | PN ---
Physical Exam: SUBJECTIVE: Patient seen and examined, feels urinating a lot. Overall feels better, no new complaints. OBJECTIVE: Vital Signs Period Temp Pulse Resp BP Sys/Ventura Pulse Ox Last 24 Hr 98.0 F-99.2 F 74-96 -18 111-145/57-62 95-96 GENERAL: ambulating in room in no acute distress neck; soft, supple, no JVD noted chest: improved right basilar rales, no wheezing Abdomen: still distended, NT, Extremities; some improvement in pedal edema Laboratory Results - last 24 hr 01/05/18 01/05/18 01/05/18 11:25 17:35 22:06 WBC RBC Hgb Hct MCV MCH MCHC RDW Plt Count MPV Absolute Neuts (auto) Neutrophils % Lymphocytes % Monocytes % Eosinophils % Basophils % Nucleated RBC % Differential Comment PT with INR INR PTT (Actin FS) Sodium Potassium Chloride Carbon Dioxide Anion Gap BUN Creatinine Creat Clearance w eGFR POC Glucometer 158 145 Random Glucose Calcium Phosphorus Magnesium Total Bilirubin AST ALT Alkaline Phosphatase Total Protein Albumin Ur Random Sodium Influenza A (Rapid) Negative Influenza B (Rapid) Negative 01/06/18 01/06/18 01/06/18 06:14 06:40 07:45 WBC RBC Hgb Hct MCV MCH MCHC RDW Plt Count MPV Absolute Neuts (auto) Neutrophils % Lymphocytes % Monocytes % Eosinophils % Basophils % Nucleated RBC % Differential Comment PT with INR Cancelled INR Cancelled PTT (Actin FS) Cancelled Sodium Potassium Chloride Carbon Dioxide Anion Gap BUN Creatinine Creat Clearance w eGFR POC Glucometer 137 Random Glucose Calcium Phosphorus Magnesium Total Bilirubin AST ALT Alkaline Phosphatase Total Protein Albumin Ur Random Sodium 60 Influenza A (Rapid) Influenza B (Rapid) 01/06/18 01/06/18 01/06/18 08:15 08:15 11:48 WBC 15.9 H RBC 2.70 L Hgb 7.6 L Hct 24.3 L MCV 90.1 MCH 28.2 MCHC 31.3 L RDW 18.0 H Plt Count 79 L D MPV 7.8 Absolute Neuts (auto) 0.5 L Neutrophils % 3.0 L Lymphocytes % 96.3 H Monocytes % 0.5 L Eosinophils % 0.2 Basophils % 0.0 Nucleated RBC % 0 Differential Comment PT with INR INR PTT (Actin FS) Sodium 141 Potassium 4.6 Chloride 111 H Carbon Dioxide 18 L Anion Gap 12 BUN 69 H Creatinine 3.6 H Creat Clearance w eGFR 17.10 POC Glucometer 103 Random Glucose 110 H Calcium 7.8 L Phosphorus 4.5 Magnesium 2.8 H Total Bilirubin 0.3 AST 13 L ALT 16 Alkaline Phosphatase 89 Total Protein 5.3 L Albumin 2.7 L Ur Random Sodium Influenza A (Rapid) Influenza B (Rapid) 01/06/18 12:05 WBC 16.9 H RBC 2.90 L Hgb 8.1 L Hct 26.1 L MCV 90.1 MCH 28.0 MCHC 31.1 L RDW 18.2 H Plt Count 82 L MPV 7.8 Absolute Neuts (auto) Neutrophils % Lymphocytes % Monocytes % Eosinophils % Basophils % Nucleated RBC % Differential Comment PT with INR INR PTT (Actin FS) Sodium Potassium Chloride Carbon Dioxide Anion Gap BUN Creatinine Creat Clearance w eGFR POC Glucometer Random Glucose Calcium Phosphorus Magnesium Total Bilirubin AST ALT Alkaline Phosphatase Total Protein Albumin Ur Random Sodium Influenza A (Rapid) Influenza B (Rapid) Active Medications Generic Name Dose Route Start Last Admin Trade Name Freq PRN Reason Stop Dose Admin Allopurinol 100 mg 01/06/18 10:00 01/06/18 10:27 Zyloprim - PO 100 mg DAILY [facility] Administration Calcium Carbonate 650 mg 01/06/18 10:00 01/06/18 10:27 Calcium Carbonate - PO 650 mg DAILY [facility] Administration Carvedilol 6.25 mg 01/05/18 22:00 01/06/18 10:27 Coreg - PO 6.25 mg BID [facility] Administration Darunavir 600 mg 01/05/18 12:45 01/06/18 10:29 Prezista - PO 600 mg BID [facility] Administration Ferrous Sulfate 325 mg 01/05/18 17:30 01/06/18 13:42 Feosol - PO 325 mg TIDCM [facility] Administration Finasteride 5 mg 01/05/18 12:45 01/06/18 10:27 Proscar - PO 5 mg DAILY [facility] Administration Furosemide 40 mg 01/06/18 06:00 01/06/18 13:42 Lasix Injection - IVPUSH 40 mg BID@0600,1400 [facility] Administration Hydralazine HCl 25 mg 01/05/18 13:10 01/06/18 10:27 Apresoline - PO 25 mg BID [facility] Administration Insulin Aspart 1 vial 01/05/18 16:30 01/06/18 11:15 Novolog Vial Sliding Scale - SQ Not Given ACHS [facility] Protocol Nifedipine 60 mg 01/06/18 10:00 01/06/18 10:29 Procardia Xl - PO 60 mg DAILY [facility] Administration Raltegravir 400 mg 01/05/18 12:45 01/06/18 10:29 Isentress - PO 400 mg BID [facility] Administration Ranitidine HCl 150 mg 01/06/18 10:00 01/06/18 10:27 Zantac - PO 150 mg DAILY [facility] Administration Ritonavir 100 mg 01/05/18 12:45 01/06/18 10:29 Norvir - PO 100 mg BID [facility] Administration Sodium Bicarbonate 650 mg 01/05/18 12:45 01/06/18 10:27 Sodium Bicarbonate - PO 650 mg BID [facility] Administration Tamsulosin HCl 0.4 mg 01/05/18 22:00 01/06/18 08:55 Flomax - PO 0.4 mg BID@0830,2200 [facility] Administration ASSESSMENT/PLAN: 67 yom with extensive PMHx as above, admitted with suspected viral syndrome, poor oral intake and worsening edema -URI like illness, r/o PNA/atypical infection given immunocompromised state -Worsening edema (pedal edema/ascitis/Weight gain), ?acute diastolic HF -Poor oral intake -CKD stage IV-V -hyperkalemia -HIV On HAART (last CD4 700 in 11/2017) -recent obstructive uropathy s/p outpatient cystoscopy -h/o Pseudomonas UTI -NICM with normal cath, last EF 65% -HCV cirrhosis s/p treatment -NIDDM -HTN -Chronic leg edema -CLL (s/p treatment 2 years ago, recent WBC 50s, being monitored) Plan: Reports is diuresing, stressed strict I/Os with patient and nursing. Lasix 40mg IV BID per renal. Monitor renal function. No aldactone. K normalized. Bladder scan x 1 (discussed with nursing). Flomax/finasterde. recent cystoscopy outpatient. Abdomen more distended today. check abdominal US. Flu swab neg. CT chest noted. Hold off on abx for now. ID consult appreciated. h/h stable, known h/o recurrent anemia requiring transfusions. Hold off for now. Overall WBC and ANC unchanged from prior. hematology input if new concerns inhouse. Hold oral hypoglycemics, ISS, diabetic diet. Continue HAART, coreg/nifedipine/hydralazine. DVTPPX with SCDs when in bed Dispo pending clinical improvement. Plan discussed with patient and nursing in detail, all questions answered. Visit type - Emergency Visit Emergency Visit: Yes ED Registration Date: 01/05/18 Care time: The patient presented to the Emergency Department on the above date and was hospitalized for further evaluation of their emergent condition. - New Patient This patient is new to me today: No - Critical Care Critical Care patient: No - Discharge Referral Referred to [facility] Med [facility].: No
[2018-01-06] MEDS ORDERED: MELATONIN 5 MG TABLETS PO PRN (18:04)
[2018-01-06] MEDS ORDERED: diphenhydrAMINE HCL 25 MG CAPSULE (FP) PO ONE (19:09)
[2018-01-07] MEDS: FUROSEMIDE 40 MG/4 ML INJECTABLE VIAL IVPUSH SCH ×2 (06:04→13:52)
[2018-01-07] MEDS: INSULIN SLIDING SCALE (NOVOLOG) 1 VIAL SQ SCH ×2 (06:05→11:42)
[2018-01-07 07:21] LABS: EOS % 0.2 % (0-4.5); HEMATOCRIT 23.6 % (35.4-49); HEMOGLOBIN 7.4 GM/dL (11.7-16.9); LYMPH % 94.6 % (8-40); MCHC 31.3 g/dl (32.0-35.9); MEAN CELL VOLUME 89.5 fl (80-96); MEAN PLT VOLUME 8.5 fl (7.5-11.1); MONO % 0.4 % (3.8-10.2); NEUT % 4.8 % (42.8-82.8); PLATELET COUNT 84 K/MM3 (134-434); RBC 2.63 M/mm3 (4.00-5.60); RDW 17.7 % (11.9-15.9); WHITE BLOOD COUNT 15.3 K/mm3 (4.0-10.0)
[2018-01-07 07:51] LABS: ALBUMIN 2.6 g/dl (3.4-5.0); ALK PHOS 90 U/L (45-117); ANION GAP 10 MMOL/L (8-16); BILIRUBIN,TOTAL 0.3 mg/dL (0.2-1); BLOOD UREA NITROGEN 77 mg/dL (7-18); CALCIUM 7.7 mg/dL (8.5-10.1); CHLORIDE 110 mmol/L (98-107); CO2 19 mmol/L (21-32); CREATININE 3.9 mg/dL (0.55-1.3); GLUCOSE,RANDOM 133 mg/dL (74-106); MAGNESIUM 2.9 mg/dL (1.8-2.4); PHOSPHOROUS 5.2 mg/dL (2.5-4.9); POTASSIUM 4.5 mmol/L (3.5-5.1); SGOT/AST 15 U/L (15-37); SGPT/ALT 15 U/L (13-61); SODIUM 139 mmol/L (136-145); TOT PROT 5.4 g/dl (6.4-8.2)
[2018-01-07] MEDS: FERROUS SO4 325 MG TABLET (FP) PO SCH ×2 (08:57→12:30)
[2018-01-07] MEDS: TAMSULOSIN HCL 0.4 MG CAP PO SCH (08:57)
[2018-01-07] MEDS: RANITIDINE HCL 150 MG TABLET (FP) PO SCH ×2 (10:02→10:09)
[2018-01-07] MEDS: ALLOPURINOL 100 MG TABLET (FP) PO SCH (10:02)
[2018-01-07] MEDS: CALCIUM CARBONATE 650 MG TABLET PO SCH (10:02)
[2018-01-07] MEDS: NIFEdipine E.R 60 MG TABLET (UD) PO SCH (10:03)
[2018-01-07] MEDS: FINASTERIDE 5 MG TABLET (FP) PO SCH (10:03)
[2018-01-07] MEDS: hydrALAZINE HCL 25 MG TABLET (FP) PO SCH (10:03)
[2018-01-07] MEDS: SODIUM BICARBONATE 650 MG TABLET PO SCH (10:03)
[2018-01-07] MEDS: CARVEDILOL 6.25 MG TABLET (FP) PO SCH (10:03)
[2018-01-07] MEDS: RILPIVIRINE HCL 25 MG TABLET PO SCH (10:04)
[2018-01-07] MEDS: RITONAVIR 100 MG TABLET PO SCH (10:04)
[2018-01-07] MEDS: DARUNAVIR ETHANOLATE 600 MG TAB PO SCH (10:04)
[2018-01-07] MEDS: RALTEGRAVIR POTASSIUM 400 MG TAB PO SCH (10:05)
[2018-01-07 12:14] LABS: PLATELET ESTIMATE DECREASED
[2018-01-07 12:37] LABS: SMUDGE CELLS 2+
[2018-01-07 12:38] LABS: PLATELET ESTIMATE DECREASED
--- NOTE | 2018-01-07 13:33 | PN ---
Progress Note, Physician History of Present Illness: Pt seen and examined at bedside. He is awake and alert. He denies shortness of breath. he says that he feels better today. - Current Medication List Current Medications: Active Medications Allopurinol (Zyloprim -) 100 mg PO DAILY [facility] Last Admin: 01/07/18 10:02 Dose: 100 mg Calcium Carbonate (Calcium Carbonate -) 650 mg PO DAILY [facility] Last Admin: 01/07/18 10:02 Dose: 650 mg Carvedilol (Coreg -) 6.25 mg PO BID [facility] Last Admin: 01/07/18 10:03 Dose: 6.25 mg Darunavir (Prezista -) 600 mg PO BID [facility] Last Admin: 01/07/18 10:04 Dose: 600 mg Ferrous Sulfate (Feosol -) 325 mg PO TIDCM [facility] Last Admin: 01/07/18 12:30 Dose: 325 mg Finasteride (Proscar -) 5 mg PO DAILY [facility] Last Admin: 01/07/18 10:03 Dose: 5 mg Furosemide (Lasix Injection -) 40 mg IVPUSH BID@0600,1400 [facility] Last Admin: 01/07/18 06:04 Dose: 40 mg Hydralazine HCl (Apresoline -) 25 mg PO BID [facility] Last Admin: 01/07/18 10:03 Dose: 25 mg Insulin Aspart (Novolog Vial Sliding Scale -) 1 vial SQ ACHS [facility]; Protocol Last Admin: 01/07/18 11:42 Dose: Not Given Melatonin (Melatonin) 10 mg PO HS PRN PRN Reason: INSOMNIA Last Admin: 01/06/18 21:29 Dose: 10 mg Nifedipine (Procardia Xl -) 60 mg PO DAILY [facility] Last Admin: 01/07/18 10:03 Dose: 60 mg Raltegravir (Isentress -) 400 mg PO BID [facility] Last Admin: 01/07/18 10:05 Dose: 400 mg Ranitidine HCl (Zantac -) 150 mg PO DAILY [facility] Last Admin: 01/07/18 10:09 Dose: 150 mg Ritonavir (Norvir -) 100 mg PO BID [facility] Last Admin: 01/07/18 10:04 Dose: 100 mg Sodium Bicarbonate (Sodium Bicarbonate -) 650 mg PO BID [facility] Last Admin: 01/07/18 10:03 Dose: 650 mg Tamsulosin HCl (Flomax -) 0.4 mg PO BID@0830,2200 [facility] Last Admin: 01/07/18 08:57 Dose: 0.4 mg - Objective Vital Signs: Vital Signs Temperature 98.9 F 01/07/18 08:53 Pulse Rate 70 01/07/18 08:53 Respiratory Rate 20 01/07/18 08:53 Blood Pressure 128/57 L 01/07/18 08:53 O2 Sat by Pulse Oximetry (%) 97 01/07/18 03:00 Constitutional: Yes: Calm Eyes: Yes: Conjunctiva Clear HENT: Yes: Atraumatic Neck: Yes: Supple Cardiovascular: Yes: S1, S2 Respiratory: Yes: CTA Bilaterally Gastrointestinal: Yes: Soft Genitourinary: Yes: WNL Musculoskeletal: Yes: WNL Edema: Yes Edema: LLE: 1+, RLE: 1+ Neurological: Yes: Oriented Psychiatric: Yes: Oriented Labs: CBC, BMP 01/07/18 06:30 01/07/18 06:30 INR, PTT INR 1.08 (0.83-1.09) 01/05/18 08:10 Problem List - Problems (1) Edema Code(s): R60.9 - EDEMA, UNSPECIFIED (2) CKD (chronic kidney disease) Code(s): N18.9 - CHRONIC KIDNEY DISEASE, UNSPECIFIED Assessment/Plan Current Medications Generic Name Dose Route Start Last Admin Trade Name Willq PRN Reason Stop Dose Admin Allopurinol 100 mg 01/06/18 10:00 01/07/18 10:02 Zyloprim - PO 100 mg DAILY [facility] Administration Calcium Carbonate 650 mg 01/06/18 10:00 01/07/18 10:02 Calcium Carbonate - PO 650 mg DAILY [facility] Administration Carvedilol 6.25 mg 01/05/18 22:00 01/07/18 10:03 Coreg - PO 6.25 mg BID [facility] Administration Darunavir 600 mg 01/05/18 12:45 01/07/18 10:04 Prezista - PO 600 mg BID [facility] Administration Ferrous Sulfate 325 mg 01/05/18 17:30 01/07/18 12:30 Feosol - PO 325 mg TIDCM [facility] Administration Finasteride 5 mg 01/05/18 12:45 01/07/18 10:03 Proscar - PO 5 mg DAILY [facility] Administration Furosemide 40 mg 01/06/18 06:00 01/07/18 06:04 Lasix Injection - IVPUSH 40 mg BID@0600,1400 [facility] Administration Hydralazine HCl 25 mg 01/05/18 13:10 01/07/18 10:03 Apresoline - PO 25 mg BID [facility] Administration Insulin Aspart 1 vial 01/05/18 16:30 01/07/18 11:42 Novolog Vial Sliding Scale - SQ Not Given ACHS [facility] Protocol Melatonin 10 mg 01/06/18 18:04 01/06/18 21:29 Melatonin PO 10 mg HS PRN Administration INSOMNIA Nifedipine 60 mg 01/06/18 10:00 01/07/18 10:03 Procardia Xl - PO 60 mg DAILY [facility] Administration Raltegravir 400 mg 01/05/18 12:45 01/07/18 10:05 Isentress - PO 400 mg BID [facility] Administration Ranitidine HCl 150 mg 01/06/18 10:00 01/07/18 10:09 Zantac - PO 150 mg DAILY [facility] Administration Ritonavir 100 mg 01/05/18 12:45 01/07/18 10:04 Norvir - PO 100 mg BID [facility] Administration Sodium Bicarbonate 650 mg 01/05/18 12:45 01/07/18 10:03 Sodium Bicarbonate - PO 650 mg BID [facility] Administration Tamsulosin HCl 0.4 mg 01/05/18 22:00 01/07/18 08:57 Flomax - PO 0.4 mg BID@0830,2200 [facility] Administration Laboratory Tests 12/03/17 12/07/17 05:14 06:00 Iron 9 L TIBC 173 L Iron Saturation 5 L Ferritin 417.1 H Impression 1. CKD 2. urinary retention 3. HIV 4. liver cirrhosis 5. Hep C 6. nephrolothiasis 7. DM 8. BPH 9. HTN 10. CLL 11. anemia 12. scrotal cellulitis Plan - cont with iron supplements - will need outpt follow up - will give a dose of procrit - pt has not followed up since his last admission - will also need vascular follow up for av fistula - discussed improtance of follow up - monitor iron levels Dr Wells
[2018-01-07 13:55] LABS: HEMATOCRIT 25.1 % (35.4-49); HEMOGLOBIN 7.8 GM/dL (11.7-16.9); MCH 27.9 pg (25.7-33.7); MCHC 30.9 g/dl (32.0-35.9); MEAN CELL VOLUME 90.2 fl (80-96); PLATELET COUNT 94 K/MM3 (134-434); RBC 2.79 M/mm3 (4.00-5.60); RDW 17.6 % (11.9-15.9); WHITE BLOOD COUNT 17.2 K/mm3 (4.0-10.0)
[2018-01-07 14:28] VITALS: TEMP 98.2
--- NOTE | 2018-01-07 14:30 | PN ---
Teaching Attending Note Name of Resident: Re Lazo ATTENDING PHYSICIAN STATEMENT I saw and evaluated the patient. I reviewed the resident's note and discussed the case with the resident. I agree with the resident's findings and plan as documented with exceptions below. SUBJECTIVE: Patient seen and examined. Doing well, breathing and swelling improved. No dark or bloody stools, fevers, chills or new concerns. OBJECTIVE: Vital Signs Period Temp Pulse Resp BP Sys/Ventura Pulse Ox Last 24 Hr 98.8 F-98.9 F 70-75 20-24 120-134/56-61 95-97 Intake & Output 01/04/18 01/05/18 01/06/18 01/07/18 23:59 23:59 23:59 23:59 Intake Total 300 525 200 Output Total 200 Balance 300 325 200 Weight 179 lb 5 oz 174 lb General: sitting in bed in no acute distress Chest: CTAB, no rales or wheezing appreciated currently Abdomen:Soft, overall unchanged distension, NT throughout, hepatomegaly Extremities: improvement in pedal edema Active Medications Allopurinol (Zyloprim -) 100 mg PO DAILY [facility] Last Admin: 01/07/18 10:02 Dose: 100 mg Calcium Carbonate (Calcium Carbonate -) 650 mg PO DAILY [facility] Last Admin: 01/07/18 10:02 Dose: 650 mg Carvedilol (Coreg -) 6.25 mg PO BID [facility] Last Admin: 01/07/18 10:03 Dose: 6.25 mg Darunavir (Prezista -) 600 mg PO BID [facility] Last Admin: 01/07/18 10:04 Dose: 600 mg Epoetin Lito (Epogen -) 20,000 unit SQ ONCE ONE Stop: 01/07/18 13:34 Ferrous Sulfate (Feosol -) 325 mg PO TIDCM [facility] Last Admin: 01/07/18 12:30 Dose: 325 mg Finasteride (Proscar -) 5 mg PO DAILY [facility] Last Admin: 01/07/18 10:03 Dose: 5 mg Furosemide (Lasix Injection -) 40 mg IVPUSH BID@0600,1400 [facility] Last Admin: 01/07/18 13:52 Dose: 40 mg Hydralazine HCl (Apresoline -) 25 mg PO BID [facility] Last Admin: 01/07/18 10:03 Dose: 25 mg Insulin Aspart (Novolog Vial Sliding Scale -) 1 vial SQ ACHS [facility]; Protocol Last Admin: 01/07/18 11:42 Dose: Not Given Melatonin (Melatonin) 10 mg PO HS PRN PRN Reason: INSOMNIA Last Admin: 01/06/18 21:29 Dose: 10 mg Nifedipine (Procardia Xl -) 60 mg PO DAILY [facility] Last Admin: 01/07/18 10:03 Dose: 60 mg Raltegravir (Isentress -) 400 mg PO BID [facility] Last Admin: 01/07/18 10:05 Dose: 400 mg Ranitidine HCl (Zantac -) 150 mg PO DAILY [facility] Last Admin: 01/07/18 10:09 Dose: 150 mg Ritonavir (Norvir -) 100 mg PO BID [facility] Last Admin: 01/07/18 10:04 Dose: 100 mg Sodium Bicarbonate (Sodium Bicarbonate -) 650 mg PO BID [facility] Last Admin: 01/07/18 10:03 Dose: 650 mg Tamsulosin HCl (Flomax -) 0.4 mg PO BID@0830,2200 [facility] Last Admin: 01/07/18 08:57 Dose: 0.4 mg Laboratory Results - last 24 hr 01/06/18 01/06/18 01/06/18 08:15 16:39 21:25 WBC RBC Hgb Hct MCV MCH MCHC RDW Plt Count MPV Absolute Neuts (auto) Total Counted 100 Neutrophils % Neutrophils % (Manual) 5.0 L D Band Neutrophils % 1.0 Lymphocytes % Lymphocytes % (Manual) 85.0 H* Monocytes % Monocytes % (Manual) 2 L Eosinophils % Basophils % Blast Cells % (Manual) 7 H D Nucleated RBC % Differential Comment Smudge Cells Platelet Estimate Decreased Sodium Potassium Chloride Carbon Dioxide Anion Gap BUN Creatinine Creat Clearance w eGFR POC Glucometer 151 145 Random Glucose Calcium Phosphorus Magnesium Total Bilirubin AST ALT Alkaline Phosphatase Total Protein Albumin 01/07/18 01/07/18 01/07/18 06:02 06:30 06:30 WBC 15.3 H RBC 2.63 L Hgb 7.4 L Hct 23.6 L MCV 89.5 MCH 28.0 MCHC 31.3 L RDW 17.7 H Plt Count 84 L MPV 8.5 Absolute Neuts (auto) 0.7 L Total Counted 100 Neutrophils % 4.8 L Neutrophils % (Manual) 7.0 L D Band Neutrophils % Lymphocytes % 94.6 H Lymphocytes % (Manual) 81.0 H* Monocytes % 0.4 L Monocytes % (Manual) 2 L Eosinophils % 0.2 Basophils % 0.0 Blast Cells % (Manual) 6 H Nucleated RBC % 0 Differential Comment Smudge Cells 2+ Platelet Estimate Decreased Sodium 139 Potassium 4.5 Chloride 110 H Carbon Dioxide 19 L Anion Gap 10 BUN 77 H Creatinine 3.9 H Creat Clearance w eGFR 15.59 POC Glucometer 138 Random Glucose 133 H Calcium 7.7 L Phosphorus 5.2 H Magnesium 2.9 H Total Bilirubin 0.3 AST 15 ALT 15 Alkaline Phosphatase 90 Total Protein 5.4 L Albumin 2.6 L 01/07/18 01/07/18 11:42 13:45 WBC 17.2 H RBC 2.79 L Hgb 7.8 L Hct 25.1 L MCV 90.2 MCH 27.9 MCHC 30.9 L RDW 17.6 H Plt Count 94 L MPV 8.0 Absolute Neuts (auto) Total Counted Neutrophils % Neutrophils % (Manual) Band Neutrophils % Lymphocytes % Lymphocytes % (Manual) Monocytes % Monocytes % (Manual) Eosinophils % Basophils % Blast Cells % (Manual) Nucleated RBC % Differential Comment Smudge Cells Platelet Estimate Sodium Potassium Chloride Carbon Dioxide Anion Gap BUN Creatinine Creat Clearance w eGFR POC Glucometer 119 Random Glucose Calcium Phosphorus Magnesium Total Bilirubin AST ALT Alkaline Phosphatase Total Protein Albumin Microbiology 01/05/18 12:06 Urine - Urine Clean Catch Urine Culture - Final NO GROWTH OBTAINED ASSESSMENT AND PLAN: 67 yom with extensive PMHx as above, admitted with suspected viral syndrome, poor oral intake and worsening edema -URI like illness, r/o PNA/atypical infection given immunocompromised state -Worsening edema (pedal edema/ascitis/Weight gain), ?acute diastolic HF -Poor oral intake -CKD stage IV-V -hyperkalemia -HIV On HAART (last CD4 700 in 11/2017) -recent obstructive uropathy s/p outpatient cystoscopy -h/o Pseudomonas UTI -NICM with normal cath, last EF 65% -HCV cirrhosis s/p treatment -NIDDM -HTN -Chronic leg edema -CLL (s/p treatment 2 years ago, recent WBC 50s, being monitored) Plan: Renal function stable. Responded to diuresis. Discussed with Dr. Wells, transition to home dose of lasix. Bladder scan with no evidence of retention. H/h overall stable, for procrit x 1 today. Outpatient CBC monitoring and follow up with ditcher operator and industrial sales representative. No concerns for bleed inhouse. Takes allopurinol for gout, reports frequent exacerbations, will continue, renal function as been stable. No new fevers or infection concerns. CT chest noted. D/c home today with outpatient follow up. Plan discussed with patient and nursing in detail, all questions answered.
[2018-01-07] MEDS ORDERED: EPOETIN ALFA 20,000 UNIT/1 ML VIAL SQ ONE (15:15)
--- NOTE | 2018-01-07 15:21 | DS ---
Physical Exam: SUBJECTIVE: Patient seen and examined at bedside. no acute events overnight; patient states that he is feeling better. he is not having trouble breathing anymore . he has more of an appetite he denies any CP/SOB?N/V fevers or chills OBJECTIVE: Vital Signs Period Temp Pulse Resp BP Sys/V[place]ura Pulse Ox Last 24 Hr 98.2 F-98.9 F 70-75 20-24 99-134/56-61 93-97 PHYSICAL EXAM GENERAL: The patient is awake, alert, and fully oriented, in no acute distress. EYES: no scleral icterus NECK: no JVD. LUNGS: CTA B/L; no rales, rhonchi or wheezing HEART: Regular rate and rhythm, S1, S2 without murmur, rub or gallop. ABDOMEN: distebded, hepatomegaly, +BS in all 4 quadrants EXTREMITIES: 2+ pulses, warm, well-perfused, n2+ pitting edema B/L. SKIN: Warm, dry, normal turgor, no rashes or lesions noted. LABS Laboratory Results - last 24 hr 01/06/18 01/06/18 01/06/18 08:15 16:39 21:25 WBC RBC Hgb Hct MCV MCH MCHC RDW Plt Count MPV Absolute Neuts (auto) Total Counted 100 Neutrophils % Neutrophils % (Manual) 5.0 L D Band Neutrophils % 1.0 Lymphocytes % Lymphocytes % (Manual) 85.0 H* Monocytes % Monocytes % (Manual) 2 L Eosinophils % Basophils % Blast Cells % (Manual) 7 H D Nucleated RBC % Differential Comment Smudge Cells Platelet Estimate Decreased Sodium Potassium Chloride Carbon Dioxide Anion Gap BUN Creatinine Creat Clearance w eGFR POC Glucometer 151 145 Random Glucose Calcium Phosphorus Magnesium Total Bilirubin AST ALT Alkaline Phosphatase Total Protein Albumin 01/07/18 01/07/18 01/07/18 06:02 06:30 06:30 WBC 15.3 H RBC 2.63 L Hgb 7.4 L Hct 23.6 L MCV 89.5 MCH 28.0 MCHC 31.3 L RDW 17.7 H Plt Count 84 L MPV 8.5 Absolute Neuts (auto) 0.7 L Total Counted 100 Neutrophils % 4.8 L Neutrophils % (Manual) 7.0 L D Band Neutrophils % Lymphocytes % 94.6 H Lymphocytes % (Manual) 81.0 H* Monocytes % 0.4 L Monocytes % (Manual) 2 L Eosinophils % 0.2 Basophils % 0.0 Blast Cells % (Manual) 6 H Nucleated RBC % 0 Differential Comment Smudge Cells 2+ Platelet Estimate Decreased Sodium 139 Potassium 4.5 Chloride 110 H Carbon Dioxide 19 L Anion Gap 10 BUN 77 H Creatinine 3.9 H Creat Clearance w eGFR 15.59 POC Glucometer 138 Random Glucose 133 H Calcium 7.7 L Phosphorus 5.2 H Magnesium 2.9 H Total Bilirubin 0.3 AST 15 ALT 15 Alkaline Phosphatase 90 Total Protein 5.4 L Albumin 2.6 L 01/07/18 01/07/18 11:42 13:45 WBC 17.2 H RBC 2.79 L Hgb 7.8 L Hct 25.1 L MCV 90.2 MCH 27.9 MCHC 30.9 L RDW 17.6 H Plt Count 94 L MPV 8.0 Absolute Neuts (auto) Total Counted Neutrophils % Neutrophils % (Manual) Band Neutrophils % Lymphocytes % Lymphocytes % (Manual) Monocytes % Monocytes % (Manual) Eosinophils % Basophils % Blast Cells % (Manual) Nucleated RBC % Differential Comment Smudge Cells Platelet Estimate Sodium Potassium Chloride Carbon Dioxide Anion Gap BUN Creatinine Creat Clearance w eGFR POC Glucometer 119 Random Glucose Calcium Phosphorus Magnesium Total Bilirubin AST ALT Alkaline Phosphatase Total Protein Albumin Microbiology 01/05/18 12:06 Urine - Urine Clean Catch Urine Culture - Final NO GROWTH OBTAINED imaging: abdominal U/S IMPRESSION: Small right pleural effusion and trace ascites. Chest CT IMPRESSION: 1. Extensive lymphadenopathy involving the mediastinal, bilateral axial and upper abdominal lymph node chains. The possibility of lymphoma should be considered. 2. Bilateral pleural effusions, lower lobe atelectasis and possible mild congestion. 3. Splenomegaly and trace ascites. Please see above discussion. HOSPITAL COURSE: Date of Admission:01/05/18 67 y/o male with extensive PMH presents to the ED for anorexia, fevers/chills, and also increased leg swelling/COREA/orthopnea. He had positive sick contacts at home. he came in with a WBC of 20.3 and increased pitting edema. CHest CT was done with results noted above in addition to abdominal U/S which shows no significant change from prior. Patient was started on IV lasix 40 BID. He was seen by ID who did not think that he needed abx given that he came in with viral like symptoms. He is also seen by his cyber security consultant who stated that he appeared at his baseline volume status and to go home on his normal home dose of lasix allan strict follow up Date of Discharge: 01/07/18 Minutes to complete discharge: 39 Discharge Summary Reason For Visit: HIV/CKD/LEUKEMIA Current Active Problems Edema (Acute) Condition: Stable - Instructions Diet, Activity, Other Instructions: You were in the hospital because of your kidney function and decreased appetite. You received lasix intravenously and responded well. You can resume your home medications as before. Advise daily weights and notify your doctor if weight gain > 3 lbs in 2 days. Your blood counts need to be closely monitored with your flat ironer. You received one shot of procrit in the hospital. You will need close monitoring of your blood counts and kidney function outpatient. Please follow up with your primary care doctor,Dr. Beltran within the week and you will need a repeat CBC and BMP drawn (in 1 week) to check your blood levels and electrolytes/kidney function Please follow up with your cyber security consultant, Dr. Hicks within one week You also need to follow up with the vascular surgeon regarding an A-V fistula. It is very important that you follow up with your doctors as an out patient. If you develop chest pain, shortness of breath, or leg swelling or any new concerns, please call 911 or return to the emergency department. Referrals: Julia Beltran MD [Primary Care Provider] - 1 Week Mamadou Rodríguez MD [Staff Physician] - Gopal Wells MD [Staff Physician] - 1 Week Disposition: HOME - Home Medications Comprehensive Discharge Medication List: Ambulatory Orders Ritonavir [Norvir] 100 mg PO BID #0 tablet 01/07/13 Allopurinol [Zyloprim -] 100 mg PO DAILY 09/01/15 Carvedilol [Coreg -] 6.25 mg PO BID 09/01/15 Nifedipine [Nifedical Xl] 60 mg PO DAILY 09/01/15 Raltegravir [Isentress] 400 mg PO BID 09/01/15 Rilpivirine HCl [Edurant] 25 mg PO DAILY 09/01/15 Darunavir Ethanolate [Prezista -] 600 mg PO BID 07/09/16 Ranitidine [Zantac -] 150 mg PO DAILY 14 Days tablet 09/21/17 Tamsulosin HCl [Flomax -] 0.4 mg PO BID 14 Days cap.er.24h 09/21/17 Finasteride [Proscar -] 5 mg PO DAILY 11/05/17 Sitagliptin Phosphate [Januvia] 25 mg PO DAILY 11/05/17 Sodium Bicarbonate - 650 mg PO BID 11/05/17 hydrALAZINE HCL [Apresoline -] 25 mg PO BID tablet 11/13/17 Calcium Carbonate - 650 mg PO DAILY #30 tablet 12/12/17 Ferrous Sulfate [Feosol] 325 mg PO TIDCM #30 ud 12/12/17 Furosemide [Lasix] 80 mg PO DAILY 01/05/18 - Discharge Referral Referred to [facility] Med P.C.: No
[2018-01-07 15:31] VITALS: BP 113/60; PULSE 76
== END 2018-01-07 16:32 | disposition home or self-care (01) | DRG 291 ==
LOC: JER 05:35 → JERBED 11:02 → INTOOBSV 11:02 → OBSVTOIN 16:05 → J6S 16:55
PROVIDERS: ADMIT Hospitalist; ATTEND Hospitalist
DX: I13.0 Hypertensive heart and chronic kidney disease with heart failure and stage 1 through stage 4 chronic kidney disease, or unspecified chronic kidney disease (principal); I50.31 Acute diastolic (congestive) heart failure; C91.90 Lymphoid leukemia, unspecified not having achieved remission; J98.11 Atelectasis; R18.8 Other ascites; N18.4 Chronic kidney disease, stage 4 (severe); K74.60 Unspecified cirrhosis of liver; Z21 Asymptomatic human immunodeficiency virus [HIV] infection status; E87.5 Hyperkalemia; I27.20 Pulmonary hypertension, unspecified; J06.9 Acute upper respiratory infection, unspecified; N40.0 Benign prostatic hyperplasia without lower urinary tract symptoms; B19.20 Unspecified viral hepatitis C without hepatic coma; D64.9 Anemia, unspecified; E86.0 Dehydration; I25.10 Atherosclerotic heart disease of native coronary artery without angina pectoris; M10.9 Gout, unspecified; D70.9 Neutropenia, unspecified; Z87.891 Personal history of nicotine dependence; R60.9 Edema, unspecified; N49.2 Inflammatory disorders of scrotum; R63.0 Anorexia; Z68.25 Body mass index [BMI] 25.0-25.9, adult; R16.1 Splenomegaly, not elsewhere classified; E11.22 Type 2 diabetes mellitus with diabetic chronic kidney disease
CPT/HCPCS: 36415; 71046-TC-FY; 71250-TC; 76700-TC; 80053; 81003; 81015; 82550; 82962; 83735; 83880; 84100; 84300; 84484; 85025; 85027; 85610; 85730; 86850; 86900; 86901; 87086; 87804; 93005; 93010; 99283-25; G0378; J0885

== ENCOUNTER 2018-01-09 21:52 | Emergency (ER) | payer OTHER ==
--- NOTE | 2018-01-09 21:55 | PDOC ---
Rapid Medical Evaluation Time Seen by Provider: 01/09/18 21:53 Medical Evaluation: Allergies Allergy/AdvReac Type Severity Reaction Status Date / Time lactose AdvReac Verified 01/05/18 05:50 01/09/18 21:53 I have performed a brief in-person evaluation of this patient. The patient presents with a chief complaint of: SOB x2 days Pertinent physical exam findings: End expiratory wheezes. Distended abdomen. I have ordered the following: labs, urine, cxr, ekg The patient will proceed to the ED for further evaluation. Discharge Disposition - Diagnosis SOB (shortness of breath) - Referrals - Patient Instructions - Post Discharge Activity
[2018-01-09 21:57] VITALS: BMI 24.2
--- NOTE | 2018-01-09 22:32 | PDOC ---
History of Present Illness - General Chief Complaint: SIRS, Suspected/Possible Stated Complaint: TROUBLE BREATHING Time Seen by Provider: 01/09/18 21:53 - History of Present Illness Initial Comments: 01/09/18 22:24 67 yo M with h/o HTN, NIDDM, HIV ( CD4 700) on HAART, CLL ( s/p treatment x 2 years ), CAD, CKD ( IV-V, baseline Cr~3.5), HCV s/p treatment Harvoni, cirrhosis , IVDA ( Heroin/Cocaine) who p/w SOB. Patient reports acute onset of SOB this AM , while at rest. Also reports Caicedo, and episode of non pleuritic-non radiating, sharp diffuse chest pain lasting from 3pm-5pm, resolving spontaneously, with no identifiable triggers or alleviators. One episode of non bilious, non bloody emesis this AM. Now improved. Patient with no home O2 requirements. Duoneb use yesterday. Compliant with oral lasix 40 mg. Recent admission [facility] for SOB. hospital course was noteable for WBC 20.3, CT CHEST (01/05/18) unchanged from prior CT CHEST ( 06/2016) with mediastinal lymphadenopathy, BL pleural effusions. Patient was started on oral lasix 40 mg per renal/Dr. Wells. did not receive AB because patient with viral type symptoms. Patient was advised to f/u with vascular regarding A-V fistula placement. Still produces urine. Patient denies N/V, cough, wheezing, F/C, PND, leg pain, palpitations, urinary complaints, abdominal pain, BPR, hematuria, diarrhea, constipation, lightheadedness, weakness, sensory changes. PMHx: as noted above ROS: as noted Allergies: NKDA PMD: Dr. Beltran Past History - Past Medical History Allergies/Adverse Reactions: Allergies Allergy/AdvReac Type Severity Reaction Status Date / Time lactose AdvReac Verified 01/09/18 21:57 Home Medications: Ambulatory Orders Ritonavir [Norvir] 100 mg PO BID #0 tablet 01/07/13 Allopurinol [Zyloprim -] 100 mg PO DAILY 09/01/15 Carvedilol [Coreg -] 6.25 mg PO BID 09/01/15 Nifedipine [Nifedical Xl] 60 mg PO DAILY 09/01/15 Raltegravir [Isentress] 400 mg PO BID 09/01/15 Rilpivirine HCl [Edurant] 25 mg PO DAILY 09/01/15 Darunavir Ethanolate [Prezista -] 600 mg PO BID 07/09/16 Ranitidine [Zantac -] 150 mg PO DAILY 14 Days tablet 09/21/17 Tamsulosin HCl [Flomax -] 0.4 mg PO BID 14 Days cap.er.24h 09/21/17 Finasteride [Proscar -] 5 mg PO DAILY 11/05/17 Sitagliptin Phosphate [Januvia] 25 mg PO DAILY 11/05/17 Sodium Bicarbonate - 650 mg PO BID 11/05/17 hydrALAZINE HCL [Apresoline -] 25 mg PO BID tablet 11/13/17 Calcium Carbonate - 650 mg PO DAILY #30 tablet 12/12/17 Ferrous Sulfate [Feosol] 325 mg PO TIDCM #30 ud 12/12/17 Furosemide [Lasix] 80 mg PO DAILY 01/05/18 Anemia: Yes Asthma: No Cancer: Yes (lymphacystic leukemia) Cardiac Disorders: Yes CVA: No COPD: No CHF: No DVT: No Dementia: No Diabetes: Yes GI Disorders: No Disorders: No HTN: Yes Hypercholesterolemia: No Kidney Stones: Yes Liver Disease: Yes (cirrhosis) Seizures: No Thyroid Disease: No - Surgical History Abdominal Surgery: No Appendectomy: No Cardiac Surgery: No Cholecystectomy: No Gastric Stapling: No Lung Surgery: No Neurologic Surgery: No Orthopedic Surgery: No - Immunization History Td Vaccination: Yes Immunization Up to Date: Yes - Suicide/Smoking/Psychosocial Hx Smoking Status: Yes Smoking History: Never smoked Years of Tobacco Use: 25 Have you smoked in the past 12 months: No Number of Cigarettes Smoked Daily: 0 If you are a former smoker, when did you quit?: > 25 yrs ago Cigars Per Day: 0 Information on smoking cessation initiated: No 'Breaking Loose' booklet given: 12/26/12 Hx Alcohol Use: No Drug/Substance Use Hx: No Substance Use Type: None Hx Substance Use Treatment: No Review of Systems - Review of Systems Comments:: 01/09/18 22:38 GENERAL/CONSTITUTIONAL: No fever or chills. No weakness. HEAD, EYES, EARS, NOSE AND THROAT: No change in vision. No ear pain or discharge. No sore throat. CARDIOVASCULAR: + chest pain and shortness of breath RESPIRATORY: No cough, wheezing, or hemoptysis. GASTROINTESTINAL: No nausea, vomiting, diarrhea or constipation. GENITOURINARY: No dysuria, frequency, or change in urination. MUSCULOSKELETAL: No joint or muscle swelling or pain. No neck or back pain. SKIN: No rash NEUROLOGIC: No headache, vertigo, loss of consciousness, or change in strength/ sensation. ENDOCRINE: No increased thirst. No abnormal weight change HEMATOLOGIC/LYMPHATIC: No anemia, easy bleeding, or history of blood clots. ALLERGIC/IMMUNOLOGIC: No hives or skin allergy. *Physical Exam - Vital Signs Last Vital Signs Temp Pulse Resp BP Pulse Ox 98.2 F 112 H 30 H 125/59 L 97 01/09/18 21:53 01/09/18 21:53 01/09/18 21:53 01/09/18 21:53 01/09/18 21:53 - Physical Exam Comments: 01/09/18 22:38 GENERAL: Awake, alert, and fully oriented, in no acute distress HEAD: No signs of trauma, normocephalic, atraumatic EYES: PERRLA, EOMI, sclera anicteric, conjunctiva clear ENT: Hearing grossly normal, nares patent, oropharynx clear without exudates. Moist mucosa NECK: Normal ROM, supple, no lymphadenopathy, JVD, or masses LUNGS: + Exp rhonci diffusely. absent rales. Diminished breath sounds at lung bases. Speaks full sentences. HEART: Irregular rate. Nml rhythm, normal S1 and S2, no murmurs, rubs or gallops , peripheral pulses normal and equal bilaterally. ABDOMEN: + Distended abdomen. Soft, nontender, normoactive bowel sounds. No guarding, no rebound. No masses. Neg CVA ttp. EXTREMITIES : 2+ pitting edema BL LE. Normal inspection, Normal range of motion , No clubbing or cyanosis. SKIN: Warm, Dry, normal turgor, no rashes or lesions noted Moderate Sedation - Procedure Monitoring Vital Signs: Procedure Monitoring Vital Signs Temperature 98.2 F 01/09/18 21:53 Pulse Rate 112 H 01/09/18 21:53 Respiratory Rate 30 H 01/09/18 21:53 Blood Pressure 125/59 L 01/09/18 21:53 O2 Sat by Pulse Oximetry (%) 97 01/09/18 21:53 ED Treatment Course - LABORATORY CBC & Chemistry Diagram: 01/09/18 22:30 01/09/18 22:30 Medical Decision Making - Medical Decision Making 01/09/18 22:38 67 yo M with h/o HTN, NIDDM, HIV ( CD4 700) on HAART, CLL ( s/p treatment x 2 years ), CAD, CKD ( IV-V, baseline Cr~3.5), HCV s/p treatment Harvoni, cirrhosis , IVDA ( Heroin/Cocaine) who p/w SOB. HR 112, RR 30, 02 97% RA, BP 125/90, Temp 98.2. ACS/IL r/o . R/o PNA. Possible CHF. low to mod risk PE weils criteria. Will assess for cardiac dyssarythmias, hypo/hypervolemia, electrolyte abnml, metabolic and toxic derangements, acid base disturbances, infection. Ed Course: Sepsis Order Set NS 20-30 cc/kg 01/10/18 00:47 WBC: 46.8 , 91.0 lymphocytes 01/10/18 00:49 BUN/Cr: 89/5.1 (Cr~3.4-3.9 recent admission) Co2: 8, pc02 17, ph 7.6 Anion gap 18 LA: 1.2 Glu: 157 01/10/18 00:50 LDH: 416 01/10/18 02:00 Possible PE, V/Q scan 01/10/18 04:17 Heme/Onc Dr. Glynn answering service. Awaiting call back. Patient accepted to [facility] by Dr. Ramires. Patient accepted for Transfer ([phone]) 01/10/18 05:20 Patient stable and transferred to [facility] *DC/Admit/Observation/Transfer Diagnosis at time of Disposition: SOB (shortness of breath), RICHY (acute kidney injury), Elevated WBC count, Metabolic acidosis - Discharge Dispostion Disposition: TRANSFER ACUTE CARE/OTHER HOSP Condition at time of disposition: Stable Decision to Admit order: Yes - Referrals - Patient Instructions - Post Discharge Activity
[2018-01-09 22:40] LABS: BASO % 0.1 % (0-2.0); HEMATOCRIT 27.6 % (35.4-49); HEMOGLOBIN 8.8 GM/dL (11.7-16.9); LYMPH % 96.4 % (8-40); MEAN CELL VOLUME 90.6 fl (80-96); MEAN PLT VOLUME 7.9 fl (7.5-11.1); MONO % 0.7 % (3.8-10.2); NEUT % 2.8 % (42.8-82.8); PLATELET COUNT 140 K/MM3 (134-434); RBC 3.04 M/mm3 (4.00-5.60); RDW 17.8 % (11.9-15.9)
[2018-01-09 22:44] LABS: WHITE BLOOD COUNT 46.8 K/mm3 (4.0-10.0)
[2018-01-09 22:55] LABS: VENOUS PH 7.26 (7.32-7.42); VENOUS PO2 93.6 mmHg (28-48)
[2018-01-09 23:07] LABS: ALK PHOS 115 U/L (45-117); ANION GAP 18 MMOL/L (8-16); BILIRUBIN,TOTAL 0.5 mg/dL (0.2-1); BLOOD UREA NITROGEN 89 mg/dL (7-18); CALCIUM 7.4 mg/dL (8.5-10.1); CHLORIDE 109 mmol/L (98-107); CO2 8 mmol/L (21-32); CREATININE 5.1 mg/dL (0.55-1.3); GLUCOSE,RANDOM 157 mg/dL (74-106); POTASSIUM 3.5 mmol/L (3.5-5.1); SGOT/AST 22 U/L (15-37); SGPT/ALT 27 U/L (13-61); SODIUM 135 mmol/L (136-145); TOT PROT 6.6 g/dl (6.4-8.2)
[2018-01-09 23:32] LABS: ANISOCYTOSIS 1+; PLATELET ESTIMATE DECREASED
[2018-01-09 23:47] LABS: INR 1.33 (0.83-1.09); PROTHROMBIN TIME (PATIENT) 15.7 SEC (9.7-13.0)
[2018-01-09 23:50] LABS: ACTIVATED PTT 28.6 SECONDS (25.2-36.5)
[2018-01-09 23:59] LABS: LDH 416 U/L (87-246)
[2018-01-10] MEDS ORDERED: ALBUTEROL SO4 2.5/IPRATROPIUM 0.5 INH SOL 3 ML VIAL.NEB. NEB ONE ×2 (00:47→00:52)
[2018-01-10] MEDS ORDERED: VANCOMYCIN 1 GRAM (PRE-DOCKED) 1,000 MG/250 ML BAG IVPB ONE (01:57)
[2018-01-10] MEDS ORDERED: PIPERACILLIN/TAZOB 4.5 GM 4.5 GM in DEXTROSE 5%-WATER 100 ML IVPB ONE (01:57)
--- NOTE | 2018-01-10 02:37 | PDOC ---
Attending Attestation - Resident Resident Name: Alex Iniguez - ED Attending Attestation I have performed the following: I have examined & evaluated the patient, The case was reviewed & discussed with the resident, I agree w/resident's findings & plan, Exceptions are as noted - HPI HPI: 01/10/18 05:56 67M PMH DM, HTN, HIV cd4 700 compliant with HAART, CLL, cad, ckd, hcv, ivda here with acute onset of sob this morning, with persistent chest pain that lasted for several hours last afternoon and resolve w/o intervention. - Physicial Exam PE: 01/10/18 05:59 Agree with exam as documented by resident - Medical Decision Making 01/10/18 06:02 Per patient abd distension unchanged, acute onset of sob makes mechanical obstruction by ascitic abd less likely Pt meets sepsis criteria, but no fever, wbc >40, infectious workup, hydrate empiric abx Consider PE, CTA dispo per clinical course admit
[2018-01-10 03:14] LABS: ARTERIAL BLOOD GAS PO2 74.8 mmHg (80-100); ARTERIAL BLOOD GAS pH 7.31 (7.35-7.45); CARBOXYHEMOGLOBIN 1.1 gm% (0.5-2.0)
[2018-01-10 03:32] LABS: ALLENS TEST POSITIVE
[2018-01-10 03:33] LABS: ARTERIAL BLOOD GAS PCO2 16.3 mmHg (35-45)
[2018-01-10 05:10] VITALS: BP 128/68; PULSE 80; TEMP 98.3
[2018-01-10 10:30] LABS: OSMOLALITY,SERUM 306 mosm/kg (278-305)
--- NOTE | 2018-01-10 11:57 | EKG ---
Test Reason : Blood Pressure : / mmHG Vent. Rate : 096 BPM Atrial Rate : 096 BPM P-R Int : 156 ms QRS Dur : 094 ms QT Int : 358 ms P-R-T Axes : 062 032 -72 degrees QTc Int : 452 ms NORMAL SINUS RHYTHM POSSIBLE LEFT ATRIAL ENLARGEMENT LEFT VENTRICULAR HYPERTROPHY WITH REPOLARIZATION ABNORMALITY ABNORMAL ECG WHEN COMPARED WITH ECG OF 05-JAN-2018 07:18, SINUS RHYTHM HAS REPLACED ATRIAL FLUTTER ST NOW DEPRESSED IN INFERIOR LEADS T WAVE INVERSION NOW EVIDENT IN INFERIOR LEADS T WAVE INVERSION NOW EVIDENT IN ANTEROLATERAL LEADS Confirmed by NENA DOLL, ASH ([id number]) on 01/10/2018 11:57:41 AM Referred By: Confirmed By:ASH BARRETT MD
--- NOTE | 2018-01-11 10:01 | PDOC ---
Patient Follow-up (Call Back) - Post ED Follow - Up Condition at time of discharge: Stable Disposition at time of original discharge: TRANSFER ACUTE CARE/OTHER HOSP Reason for Call Back: Abnwl. Microbiology (Pt with positive blood cultures. Pt was transferred to [facility] for sepsis. No further action is needed at this time.)
== END 2018-01-10 06:31 | disposition short-term general hospital (02) ==
LOC: JER 21:52
PROC: 3E0F7GC Introduction of Other Therapeutic Substance into Respiratory Tract, Via Natural or Artificial Opening (ICD-10-PCS; principal; 2018-01-09)
DX: N17.9 Acute kidney failure, unspecified (principal); E87.2 Acidosis; D72.829 Elevated white blood cell count, unspecified; Z21 Asymptomatic human immunodeficiency virus [HIV] infection status; K74.60 Unspecified cirrhosis of liver; I25.10 Atherosclerotic heart disease of native coronary artery without angina pectoris; I13.11 Hypertensive heart and chronic kidney disease without heart failure, with stage 5 chronic kidney disease, or end stage renal disease; N18.5 Chronic kidney disease, stage 5; E11.9 Type 2 diabetes mellitus without complications; Z79.84 Long term (current) use of oral hypoglycemic drugs; Z85.6 Personal history of leukemia; Z86.19 Personal history of other infectious and parasitic diseases
CPT/HCPCS: 36415; 36600; 71045-TC-FY; 80053; 80307; 82375; 82803; 83050; 83605; 83615; 83930; 84484; 85025; 85610; 85730; 87040; 87186; 93005; 93010; 99285-25